=== PATIENT | female | born 1995 | race Caucasian/White ===

== ENCOUNTER 2020-03-20 06:36 | Emergency (ER) | payer OTHER, SELFPAY ==
--- NOTE | 2020-03-20 07:54 | ED.EAR ---
HPI - Ear Problem General Chief complaint: Ear Problems Stated complaint: EAR PAIN - RIGHT Time Seen by Provider: 03/20/20 07:49 Source: patient Mode of arrival: ambulatory Limitations: no limitations History of Present Illness HPI Narrative: Patient comes to emergency room complaining of right-sided ear pain and drainage which started couple of days ago. Patient states about a week ago she had earring placed on the outside part of her ear, then a few days later she started having pain on the inside of her ear. Patient states she works at [email or web address], she had a physician look at her ear couple of days ago, but she did not have any discharge at this time. Patient states overnight she noticed that her right ear is draining. Complaining also of right-sided ear pain, left side within normal limits patient denies fevers. Patient denies any recent trauma MD Complaint: ear pain Location: right ear Severity: moderate Related Data Previous Rx's Medication Instructions Recorded acetic acid 3 drp OTIC (EARS) Q6H #15 ml 03/20/20 amoxicillin-pot clavulanate 1 tab PO Q12H #20 tab 03/20/20 [Augmentin] Allergies Allergy/AdvReac Type Severity Reaction Status Date / Time terbinafine [TERBINAFINE] Allergy Severe ANAPHYLAXIS Unverified 02/13/20 16:43 Terbinafine Allergy Unknown Unverified 06/03/19 00:00 Review of Systems Review of Systems: Constitutional : No Weight loss, No Fever, No Chills, No Night Sweats, No Fatigue, No Malaise ENT/Mouth : No Hearing loss, complaining of right-sided Ear Pain and discharge, No Nasal Congestion, No Sinus Pain, No Hoarseness, No sore throat, No Rhinorrhea, No Swallowing Difficulty Eyes: No Eye Pain, No Swelling, No Redness, No Foreign Body, No Discharge, No Vision Changes Cardiovascular : No Chest Pain, No SOB, No Dyspnea on Exertion, No Orthopnea, No Edema, No Palpitations Respiratory : No Cough, No Sputum, No Wheezing, No Smoke Exposure, No Dyspnea Gastrointestinal : No Nausea, No Vomiting, No Diarrhea, No Constipation, No abdominal Pain, No Hematochezia, No Melena Genitourinary : no irregular bleeding, No Dysuria, No Urinary Frequency, No Hematuria, No Urinary Incontinence, No Urgency, No Flank Pain, No Urinary Flow Changes, No Hesitancy Musculoskeletal : No joint pain, No Myalgias, No Joint Swelling Skin : No Skin Lesions, No rash Neuro : No Weakness, No Numbness, No Paresthesias, No Loss of Consciousness, No Dizziness, No Headache Psych : No Anxiety/Panic, No Depression, No SI/HI/AH/VH, No Social Issues, Heme/Lymph: No Bruising, No Bleeding,No Lymphadenopathy Endocrine : No Polyuria, No Polydipsia, No Temperature Intolerance Physical Exam Vital Signs: Appearance: Alert. Oriented X3. No acute distress. Eyes: Pupils equal, round and reactive to light. ENT: Pharynx normal. left ear within normal limits, right ear has yellowish discharge in the ear canal, tympanic membrane mildly erythematous, new piercing side has a small side of granulation tissue, does not look infected Neck: Normal inspection. Neck supple. No lymph nodes noted. No crepitus CVS: Normal heart rate and rhythm. Pulses normal. Normal S1 and S2 Respiratory: No respiratory distress. Breath sounds normal. No Wheezing. No rales Abdomen: Soft and nontender. No rigidity. No distention. good BS x4 Skin: Skin warm and dry. Normal skin color. Normal skin turgor. Extremities: No lower extremity edema. No lower extremity edema. No Lacerations. No Rash Neuro: Oriented X 3. No motor deficit. No sensory deficit. Moving all extermities. No slurred speech. Course Course Course Narrative: I discussed the physical exam with the patient, she will be started on antibiotics. Patient will follow-up on Monday with her primary care physician. Discharge Plan Discharge Clinical Impression: Otitis media Qualifiers: Otitis media type: unspecified Chronicity: acute Qualified Code(s): H66.90 - Otitis media, unspecified, unspecified ear Patient Disposition: Home, Self-Care Instructions: Ear Infection (ED) Additional Instructions: Please follow-up with your primary care physician tomorrow. If you have any worsening or new symptoms, please return to the emergency room or call 911 Prescriptions: New amoxicillin-pot clavulanate [Augmentin] 875-125 mg tablet 1 tab PO Q12H Qty: 20 RF: 0 acetic acid 2 % solution 3 drp otic (ears) Q6H Qty: 15 RF: 0
[2020-03-20 07:59] VITALS: BP 117/77; PULSE 84; RESP 18; TEMP 36.5; O2SAT 98; BMI 30.7
== END 2020-03-20 08:11 | disposition home or self-care (01) ==
LOC: HO.ED 08:11
PROVIDERS: Emergency Provider Emergency Medicine; PCP Nurse Practitioner Family
DX: H66.91 Otitis media, unspecified, right ear (principal)
CPT/HCPCS: 99283

== ENCOUNTER 2020-03-22 10:56 | Emergency (ER) | payer OTHER, SELFPAY ==
[2020-03-22 11:42] VITALS: BP 150/75; PULSE 86; RESP 16; TEMP 37.7; O2SAT 98; BMI 30.7
--- NOTE | 2020-03-22 12:19 | CT_ITS ---
EXAMINATION: CT MASTOID CLINICAL INFORMATION: Pain/redness and swelling. COMPARISON: None TECHNIQUE: 0.6 mm thin axial and reformatted 0.6 mm thin coronal and sagittal images of mastoid sinuses were obtained. DLP: 228 mGy-cm FINDINGS: There is a small polyp or retention cyst left maxillary sinus. Rest of the paranasal sinuses are well aerated and clear. The mastoid air cells are well aerated. There is mild thickening of right tympanic membrane and mucosal thickening in the external auditory canal but no serous fluid collection or any evidence of mass. Both middle ears and the left external auditory canal appear widely patent. The middle ear ossicles are intact. Bilateral internal auditory canals are symmetrical and normal. No evidence of osteopenia or sclerosis. Visualized bilateral TM joints are symmetrical and normal. The mastoid sinuses are well aerated and clear. CT/CT mastoid IMPRESSION: Unremarkable CT mastoid sinuses. Especially there are no mastoid sinus inflammatory changes or wall thickening. Minimal mucosal thickening involving the right external ear and the tympanic membrane but no serous fluid collection or mass seen. Left auditory canal, middle and internal ear appears unremarkable.
[2020-03-22] MEDS: 0.9 % Sodium Chloride 500 ML 1000 ML IV (13:00)
[2020-03-22 13:05] LABS: Basophils Percent Auto 0.3 % (0-2); Eosinophils Absolute Auto 0.5 X10*3/uL (0.0-0.4); Eosinophils Percent Auto 3.6 % (0-4); Hematocrit 44.7 % (37-47); Hemoglobin 14.4 g/dl (12.0-16.0); Imm Gran Abs Auto 0.04 X10*3/uL (0.00-0.03); Imm Gran Pct Auto 0.3 % (0.0-0.4); Lymphocytes Absolute Auto 1.3 X10*3/uL (1.2-4.9); Lymphocytes Percent Auto 8.7 % (20-40); MANUAL DIFF FLAG SCAN; Mean Corpuscular HGB Conc 32.2 g/dl (31.0-35.0); Mean Corpuscular Hemoglobin 28.2 pg (27.0-33.0); Mean Corpuscular Volume 87.6 fL (80-98); Mean Platelet Volume 9.8 fL (9.4-12.3); Monocytes Absolute Auto 1.6 X10*3/uL (0.1-1.2); Monocytes Percent Auto 10.8 % (2-11); Neutrophils Percent Auto 76.3 % (45-73); Platelet Count 324 X10*3/uL (160-400); Red Cell Distribution Width 13.1 % (11.0-16.0); SCAN SMEAR FLAG 1; White Blood Count 14.4 X10*3/uL (4.8-10.8)
[2020-03-22 13:24] LABS: SLIDE REVIEW VERIFIED
--- NOTE | 2020-03-22 13:28 | ED.EAR ---
HPI - Ear Problem General Chief complaint: Headache Stated complaint: EAR PAIN Time Seen by Provider: 03/22/20 12:01 Source: patient Mode of arrival: ambulatory Limitations: no limitations History of Present Illness HPI Narrative: Otherwise healthy 24-year-old female presenting with complaint of continued right ear pain. States she was seen 2 days ago diagnosed with ear infection states she has been taking the antibiotics and feels like her symptoms are getting worse. It is noted that she has had 2 piercings done in the last couple of weeks. She reports that she has had some increased pain at site. MD Complaint: ear pain Location: right ear Duration: constant Severity: moderate Relieving factors: ear drops Related Data Previous Rx's Medication Instructions Recorded acetic acid 3 drp OTIC (EARS) Q6H #15 ml 03/20/20 amoxicillin-pot clavulanate 1 tab PO Q12H #20 tab 03/20/20 [Augmentin] doxycycline monohydrate 100 mg PO BID 10 Days #20 cap 03/22/20 ibuprofen 800 mg PO Q8H PRN #30 tab 03/22/20 Allergies Allergy/AdvReac Type Severity Reaction Status Date / Time terbinafine [TERBINAFINE] Allergy Severe ANAPHYLAXIS Verified 03/22/20 12:40 sulfamethoxazole Allergy Angioedema Verified 03/22/20 12:40 [From Bactrim] trimethoprim [From Bactrim] Allergy Angioedema Verified 03/22/20 12:40 Review of Systems Review of Systems: Constitutional: No Weight loss, No Fever, No Chills, No Night Sweats, No Fatigue, No Malaise ENT/Mouth: No Hearing loss, + Ear Pain, No Nasal Congestion, No Sinus Pain, No Hoarseness, No sore throat, No Rhinorrhea, No Swallowing Difficulty Eyes: No Eye Pain, No Swelling, No Redness, No Foreign Body, No Discharge, No Vision Changes Cardiovascular: No Chest Pain, No SOB, No Dyspnea on Exertion, No Orthopnea, No Edema, No Palpitations Respiratory: No Cough, No Sputum, No Wheezing, No Smoke Exposure, No Dyspnea Gastrointestinal: No Nausea, No Vomiting, No Diarrhea, No Constipation, No abdominal Pain, No Hematochezia, No Melena Genitourinary: no irregular bleeding, No Dysuria, No Urinary Frequency, No Hematuria, No Urinary Incontinence, No Urgency, No Flank Pain, No Urinary Flow Changes, No Hesitancy Musculoskeletal: No joint pain, No Myalgias, No Joint Swelling Skin: No Skin Lesions, No rash Neuro: No Weakness, No Numbness, No Paresthesias, No Loss of Consciousness, No Dizziness, No Headache Psych: No Social Issues Heme/Lymph: No Bruising, No Bleeding,No Lymphadenopathy Endocrine: No Polyuria, No Polydipsia, No Temperature Intolerance Yes all other systems are reviewed and are negative [facility] Past Medical History Attestation statement: The following information was validated with the patient. Social History Social History Alcohol intake: never Smoking Status: Never smoker Use of substances other than those prescribed or required for medical reasons: No Advance Directives: No Advance Directives Information Provided: No Physical Exam Vital Signs: Vital Signs: Vital Signs Temp Pulse Resp BP Pulse Ox 03/22/20 13:44 99 F 91 16 121/81 99 03/22/20 11:42 100 F 86 16 150/75 H 98 Body Mass Index 30.7 Reviewed Const: General: cooperative and healthy appearing; No acute distress or intoxicated appearing Nutritional Appearance: average body habitus Orientation/consciousness: patient oriented x3 HENMT: Head: Yes normal to inspection Ears: hearing grossly normal bilaterally Outer ear/TM images: 1. Right ear with multiple piercings. Most recent piercing at the top of the ear appears to be infected with very small amount of purulent discharge. Very minimal erythema. Eyes: General: appearance normal, both eyes and all related structures Visual Campos: normal visual campos by confrontation Neck: Neck: Yes normal visual inspection, No positive Brudzinski's sign, No positive Kernig's sign and No tender Thyroid: Thyroid normal Chest: Chest palpation & inspection: normal inspection of the chest Resp: Effort & Inspection: normal respiratory effort Cardio: Jugular venous distension: no JVD GI: Inspection: Yes normal to inspection Percussion: Yes normal to percussion Auscultation: normal bowel sounds : General: Yes no CVA tenderness Back/Spine/Pelvis: Back: no CVA tenderness Skin: General skin exam: no rashes or lesions noted Neuro: General: patient oriented x3 Extrem: General: Yes normal to inspection Course Course Course Narrative: CT without evidence of mastoid disease. Pain discomfort likely a source from the recent piercing that is now infected. Lab shows leukocytosis of 14 otherwise no lactic acidosis. Patient well nontoxic appearing. Resting comfortably. Findings/ plan reviewed. Will continue her Augmentin and add on doxycycline. Will return here or primary care doctor for recheck in 3 days. MDM - Ear Lab Data Result diagrams: 03/22/20 12:57 03/22/20 12:57 Labs: Lab Results 03/22/20 03/22/20 03/22/20 Range/Units 12:57 12:57 13:14 WBC 14.4 H (4.8-10.8) X10*3/uL RBC 5.10 (4.20-5.50) X10*6/uL Hgb 14.4 (12.0-16.0) g/dl Hct 44.7 (37-47) % MCV 87.6 (80-98) fL MCH 28.2 (27.0-33.0) pg MCHC 32.2 (31.0-35.0) g/dl RDW 13.1 (11.0-16.0) % Plt Count 324 (160-400) X10*3/uL MPV 9.8 (9.4-12.3) fL Immature Gran % (Auto) 0.3 (0.0-0.4) % Neut % (Auto) 76.3 H (45-73) % Lymph % (Auto) 8.7 L (20-40) % Sargent % (Auto) 10.8 (2-11) % Eos % (Auto) 3.6 (0-4) % Baso % (Auto) 0.3 (0-2) % Lymph # (Auto) 1.3 (1.2-4.9) X10*3/uL Sargent # (Auto) 1.6 H (0.1-1.2) X10*3/uL Eos # (Auto) 0.5 H (0.0-0.4) X10*3/uL Baso # (Auto) 0.0 (0.0-0.2) X10*3/uL Abs Immat Gran (auto) 0.04 H (0.00-0.03) X10*3/uL Absolute Neuts (auto) 11.0 H (2.0-8.3) X10*3/uL Absolute Nucleated RBC 0.000 (0.0-0.012) X10*3/uL Nucleated RBC % (auto) 0.0 (0.0-0.2) /100WBC Smear Tech's Comments VERIFIED Sodium 139 (135-145) mmol/L Potassium 4.0 (3.3-5.1) mmol/l Chloride 106 (96-108) mmol/L Carbon Dioxide 24 (22-29) mmol/L Anion Gap 13 (12-20) BUN 11 (9-16) mg/dL Creatinine 0.67 (0.5-1.4) mg/dL Estim Creat Clear Calc 124.8 Estimated GFR > 60 Random Glucose 86 (60-115) mg/dL Lactic Acid 1.3 (0.5-2.0) mmol/L Calcium 9.1 (8.4-10.2) mg/dL Total Bilirubin 0.7 (0.0-1.0) mg/dL AST 15 (5-31) U/L ALT 25 (0-31) U/L Alkaline Phosphatase 80 (39-117) U/L Total Protein 7.1 (6.5-8.0) g/dL Albumin 4.5 (3.5-5.0) g/dL Urine Color Urine Appearance Urine pH (5.0-8.0) Ur Specific [place] (1.005-1.025) Urine Protein (NEG-TRACE) MG/DL Urine Glucose (UA) (NEG) MG/DL Urine Ketones (NEG) MG/DL Urine Blood (NEG) Urine Nitrite (NEG) Ur Leukocyte Esterase (NEG) Urine RBC (0) /HPF Urine WBC (0-4) /HPF Ur Squamous Epith Cells /LPF Amorphous Sediment /LPF Urine Bacteria /LPF Urine Test (NEGATIVE) 03/22/20 03/22/20 Range/Units 14:05 14:05 WBC (4.8-10.8) X10*3/uL RBC (4.20-5.50) X10*6/uL Hgb (12.0-16.0) g/dl Hct (37-47) % MCV (80-98) fL MCH (27.0-33.0) pg MCHC (31.0-35.0) g/dl RDW (11.0-16.0) % Plt Count (160-400) X10*3/uL MPV (9.4-12.3) fL Immature Gran % (Auto) (0.0-0.4) % Neut % (Auto) (45-73) % Lymph % (Auto) (20-40) % Sargent % (Auto) (2-11) % Eos % (Auto) (0-4) % Baso % (Auto) (0-2) % Lymph # (Auto) (1.2-4.9) X10*3/uL Sargent # (Auto) (0.1-1.2) X10*3/uL Eos # (Auto) (0.0-0.4) X10*3/uL Baso # (Auto) (0.0-0.2) X10*3/uL Abs Immat Gran (auto) (0.00-0.03) X10*3/uL Absolute Neuts (auto) (2.0-8.3) X10*3/uL Absolute Nucleated RBC (0.0-0.012) X10*3/uL Nucleated RBC % (auto) (0.0-0.2) /100WBC Smear Tech's Comments Sodium (135-145) mmol/L Potassium (3.3-5.1) mmol/l Chloride (96-108) mmol/L Carbon Dioxide (22-29) mmol/L Anion Gap (12-20) BUN (9-16) mg/dL Creatinine (0.5-1.4) mg/dL Estim Creat Clear Calc Estimated GFR Random Glucose (60-115) mg/dL Lactic Acid (0.5-2.0) mmol/L Calcium (8.4-10.2) mg/dL Total Bilirubin (0.0-1.0) mg/dL AST (5-31) U/L ALT (0-31) U/L Alkaline Phosphatase (39-117) U/L Total Protein (6.5-8.0) g/dL Albumin (3.5-5.0) g/dL Urine Color YELLOW Urine Appearance CLEAR Urine pH 7.5 (5.0-8.0) Ur Specific [place] 1.020 (1.005-1.025) Urine Protein NEG (NEG-TRACE) MG/DL Urine Glucose (UA) NEG (NEG) MG/DL Urine Ketones NEG (NEG) MG/DL Urine Blood TRACE (NEG) Urine Nitrite NEG (NEG) Ur Leukocyte Esterase NEG (NEG) Urine RBC 0 (0) /HPF Urine WBC 1-4 (0-4) /HPF Ur Squamous Epith Cells 1+ /LPF Amorphous Sediment 1+ /LPF Urine Bacteria NONE /LPF Urine Test NEGATIVE (NEGATIVE) Imaging Data head/mastoid CT: Radiologist's impression: Cande Hernandez 24 F 1995 [place] [id number] [address] Scan Report Signed Patient: Dolly Hernandez#: [id number] : 1995Acct:[id number] Age/Sex: 24 / FADM Date: 03/22/20 Loc: HO.ED Attending Dr: Ordering Physician: Goyo Cheng NP Date of Service: 03/22/20 Procedure(s): CT mastoid Accession Number(s): [id number] cc: oGyo Cheng 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 COMPARISON: None TECHNIQUE: 0.6 mm thin axial and reformatted 0.6 mm thin coronal and sagittal images of mastoid sinuses were obtained. DLP: 228 mGy-cm FINDINGS: There is a small polyp or retention cyst left maxillary sinus. Rest of the paranasal sinuses are well aerated and clear. The mastoid air cells are well aerated. There is mild thickening of right tympanic membrane and mucosal thickening in the external auditory canal but no serous fluid collection or any evidence of mass. Both middle ears and the left external auditory canal appear widely patent. The middle ear ossicles are intact. Bilateral internal auditory canals are symmetrical and normal. No evidence of osteopenia or sclerosis. Visualized bilateral TM joints are symmetrical and normal. The mastoid sinuses are well aerated and clear. CT/CT mastoid IMPRESSION: Unremarkable CT mastoid sinuses. Especially there are no mastoid sinus inflammatory changes or wall thickening. Minimal mucosal thickening involving the right external ear and the tympanic membrane but no serous fluid collection or mass seen. Left auditory canal, middle and internal ear appears unremarkable. Dictated By:DHARA UNDERWOOD MD Signed By:<Electronically signed by DHARA UNDERWOOD MD in OV>03/22/20 1413 DD/ 1219 TD/TT: Chiropractic Physician: [facility] Discharge Plan Discharge Clinical Impression: Otitis externa Qualifiers: Otitis externa type: other infective Chronicity: acute Laterality: right Qualified Code(s): H60.391 - Other infective otitis externa, right ear Cellulitis of earlobe Qualifiers: Laterality: right Qualified Code(s): H60.11 - Cellulitis of right external ear Patient Disposition: Home, Self-Care Instructions: Cellulitis (ED) Additional Instructions: findings of your blood work as well as a CT scan reviewed through Have recheck in 3 days Continue take the antibiotic previous prescribed and add on new antibiotic ( doxycycline) Tylenol alternate with Motrin as needed for pain discomfort Return if any concerns or worsening symptoms otherwise have recheck in 3 days either here in emergency room which primary care doctor office Thank you Prescriptions: New ibuprofen 800 mg tablet 800 mg PO Q8H PRN (Reason: pain) Qty: 30 RF: 0 doxycycline monohydrate 100 mg capsule 100 mg PO BID 10 Days Qty: 20 RF: 0 No Action amoxicillin-pot clavulanate [Augmentin] 875-125 mg tablet 1 tab PO Q12H Qty: 20 RF: 0 acetic acid 2 % solution 3 drp otic (ears) Q6H Qty: 15 RF: 0 Referrals: Goyo Cheng NP [Emergency Midlevel Provider] - 3 days ( right ear recheck in 3 days either in the emergency room or a primary care doctor office you have pictures to compare to) James Robert NP [Primary Care Provider] - 3 days ( recheck of right ear either in emergency room or primary care doctor office) Interventions: ED Discharge Assessment Last Done: 03/22/20 15:24 Discharge Date/Time: 03/22/20 15:29
[2020-03-22 13:44] VITALS: BP 121/81; PULSE 91; RESP 16; TEMP 37.2; O2SAT 99
[2020-03-22 13:45] LABS: Lactic Acid 1.3 mmol/L (0.5-2.0)
[2020-03-22 13:53] LABS: Alanine Aminotransferase 25 U/L (0-31); Albumin Level 4.5 g/dL (3.5-5.0); Alkaline Phosphatase 80 U/L (39-117); Anion Gap 13 (12-20); Aspartate Amino Transferase 15 U/L (5-31); Bilirubin Total 0.7 mg/dL (0.0-1.0); Blood Urea Nitrogen 11 mg/dL (9-16); Calcium 9.1 mg/dL (8.4-10.2); Carbon Dioxide 24 mmol/L (22-29); Chloride 106 mmol/L (96-108); Creatinine Clr Calc Pharmacy 124.8; Estimated Glomerular Filt Rate > 60; Glucose Random 86 mg/dL (60-115); Sodium 139 mmol/L (135-145); Total Protein 7.1 g/dL (6.5-8.0)
[2020-03-22] MEDS: Acetaminophen 325 MG TABLET 975 MG PO (13:59)
[2020-03-22 14:22] LABS: Glucose Urine UA NEG (NEG); Leukocyte Esterase Urine NEG (NEG); Nitrite Urine NEG (NEG); PH 7.5 (5.0-8.0); Urine Blood TRACE (NEG); Urine Ketones NEG (NEG); Urine Protein NEG (NEG-TRACE)
[2020-03-22 14:23] LABS: Appearance Urine CLEAR; Color Urine YELLOW
[2020-03-22 14:24] LABS: UPreg QC Valid YES; Urine Pregnancy NEGATIVE (NEGATIVE)
[2020-03-22 14:34] LABS: RBC Urine 0 /HPF (0); Squamous Epithelial Cell Urine 1+ /LPF
[2020-03-22 14:36] LABS: Amorphous Sediment Urine 1+ /LPF
== END 2020-03-22 15:29 | disposition home or self-care (01) ==
PROVIDERS: Nurse Practitioner Primary Care; Emergency Provider Emergency Medicine; PCP Nurse Practitioner Family
DX: H60.8X1 Other otitis externa, right ear (principal); H60.11 Cellulitis of right external ear
CPT/HCPCS: 36415; 70481; 80053; 81001; 81025; 83605; 85025; 87040; 99284

== ENCOUNTER 2020-05-26 02:02 | Inpatient (IN) | payer OTHER, SELFPAY ==
[2020-05-26] VITALS (9 sets, daily range): BP systolic 113–144; BP diastolic 75–100; PULSE 76–107; RESP 16–20; TEMP 36.2–36.7; O2SAT 97–99; BMI 31.2
[2020-05-26 03:12] LABS: Basophils Absolute Auto 0.1 X10*3/uL (0.0-0.2); Basophils Percent Auto 0.4 % (0-2); Eosinophils Absolute Auto 0.2 X10*3/uL (0.0-0.4); Eosinophils Percent Auto 1.2 % (0-4); Hematocrit 40.1 % (37-47); Hemoglobin 13.3 g/dl (12.0-16.0); Imm Gran Abs Auto 0.09 X10*3/uL (0.00-0.03); Imm Gran Pct Auto 0.5 % (0.0-0.4); Lymphocytes Absolute Auto 1.4 X10*3/uL (1.2-4.9); Lymphocytes Percent Auto 8.1 % (20-40); MANUAL DIFF FLAG SCAN; Mean Corpuscular HGB Conc 33.2 g/dl (31.0-35.0); Mean Corpuscular Hemoglobin 28.4 pg (27.0-33.0); Mean Corpuscular Volume 85.5 fL (80-98); Mean Platelet Volume 9.6 fL (9.4-12.3); Monocytes Absolute Auto 1.9 X10*3/uL (0.1-1.2); Monocytes Percent Auto 11.1 % (2-11); Neutrophils Absolute Auto 13.8 X10*3/uL (2.0-8.3); Neutrophils Percent Auto 78.7 % (45-73); Platelet Count 288 X10*3/uL (160-400); Red Blood Count 4.69 X10*6/uL (4.20-5.50); Red Cell Distribution Width 12.4 % (11.0-16.0); SCAN SMEAR FLAG 1; White Blood Count 17.5 X10*3/uL (4.8-10.8)
[2020-05-26] MEDS: ondansetron HCL 4 MG/2 ML VIAL IVPUSH (03:12)
[2020-05-26] MEDS: fentaNYL citrate/PF 100 MCG/2 ML VIAL 25 MCG IVPUSH (03:13)
[2020-05-26 03:15] LABS: Glucose Urine UA NEG (NEG); Leukocyte Esterase Urine NEG (NEG); Nitrite Urine NEG (NEG); PH 5.5 (5.0-8.0); Urine Blood TRACE (NEG); Urine Ketones NEG (NEG); Urine Protein 2+ MG/DL (NEG-TRACE)
[2020-05-26 03:25] LABS: Appearance Urine CLEAR; Color Urine STRAW
--- NOTE | 2020-05-26 03:31 | PC.NURSE ---
PT REPORTS SHE HAD BEEN EXPERIENCING LOER BILATERAL BACK PAIN FOR HOURS, THOUGHT IT WAS FROM STANDING FOR LONG HOURS AT WORK. PT TRIED IBUPROFEN, MASSAGE AND TOPICAL HEAT. PAIN INCREASED IN INTENSITY AT TIMES, NAUSEA AND VOMITING WITH INCREASED PAIN. DENIES URINARY SYMPTOMS. AMBULATORY, INCREASED PAIN WITH MOVEMENT.
[2020-05-26 03:34] LABS: Mucus Urine TRACE /LPF; Renal Epithelial Cells Urine TRACE /LPF; Squamous Epithelial Cell Urine 1+ /LPF; WBC Urine 0-2 /HPF (0-4)
[2020-05-26 03:35] LABS: UPreg QC Valid YES; Urine Pregnancy NEGATIVE (NEGATIVE)
[2020-05-26 03:42] LABS: Alanine Aminotransferase 26 U/L (0-31); Albumin Level 4.4 g/dL (3.5-5.0); Alkaline Phosphatase 84 U/L (39-117); Anion Gap 19 (12-20); Aspartate Amino Transferase 26 U/L (5-31); Bilirubin Total 0.4 mg/dL (0.0-1.0); Blood Urea Nitrogen 20 mg/dL (9-16); Calcium 9.1 mg/dL (8.4-10.2); Carbon Dioxide 20 mmol/L (22-29); Chloride 104 mmol/L (96-108); Creatinine Clr Calc Pharmacy 44.4; Estimated Glomerular Filt Rate 33; Glucose Random 147 mg/dL (60-115); Potassium 4.6 mmol/l (3.3-5.1); Sodium 138 mmol/L (135-145); Total Protein 7.1 g/dL (6.5-8.0)
[2020-05-26 03:53] LABS: SLIDE REVIEW VERIFIED
--- NOTE | 2020-05-26 03:54 | CT_ITS ---
EXAMINATION: CT ABDOMEN AND PELVIS WITHOUT CONTRAST CLINICAL INFORMATION: Left flank pain COMPARISON: 12/19/2019 TECHNIQUE: Multidetector volumetric imaging was performed from the superior aspect of the liver through the pubic symphysis. Sagittal and coronal reformatted images were obtained on the technologist's workstation. This CT examination was performed using dose optimization techniques as appropriate, variously including the following: *Automated exposure control *Adjustment of mA and/or kV according to patient size (this includes techniques or standardized protocols for targeted exams where dose is matched to indication/reason for exam; i.e. extremities or head) *Use of iterative reconstruction technique DLP: 612 mGy-cm FINDINGS: LUNG BASES: The visualized lung bases are unremarkable. LIVER, GALLBLADDER, AND BILIARY TREE: The liver is normal in size, shape, and attenuation. No focal hepatic lesion or biliary ductal dilatation is present. Cholecystectomy. PANCREAS: Unremarkable. SPLEEN: Unremarkable. ADRENAL GLANDS: Unremarkable. KIDNEYS AND URETERS: The kidneys are normal in size, shape, and attenuation. No hydronephrosis or hydroureter. There is a right lower pole 0.2 cm calculus which is 10 cm from the posterior axillary line. Mild symmetric perinephric stranding. BLADDER: Unremarkable. GASTROINTESTINAL TRACT: Stomach is unremarkable. Normal caliber small bowel. No obstruction. Normal appendix. No colonic wall thickening or inflammatory change. No free air or free fluid. ABDOMINAL WALL: No significant hernia is appreciated. LYMPH NODES: Normal. VASCULAR: Unremarkable. PELVIC VISCERA: The uterus and adnexa are unremarkable. OSSEOUS STRUCTURES: Unremarkable. CT/CT abdomen pelvis wo con IMPRESSION: No hydronephrosis. Tiny nonobstructing right lower pole renal calculus. There is mild symmetric perinephric stranding which is new from the previous CT. This is nonspecific but could be associated with an infectious process.
--- NOTE | 2020-05-26 03:56 | ED_ITS ---
HPI - Abdominal Pain General Chief Complaint: Back Pain/Injury Stated Complaint: Back Pain Time Seen by Provider: 05/26/20 02:47 Source: patient Mode of arrival: ambulatory History of Present Illness HPI narrative: This is a 24-year-old female without significant past medical history who states that she was at work and began experiencing some lower back pain that she initially felt were. Pains and when she got home she treated with heating pad and some Aleve with good resolution. However, she abruptly developed lower back pain left greater than right that woke her up from sleep and was associated with nausea, vomiting, chills, but denies any change in urinary pain/burning/frequency. She denies any diarrhea or vaginal discharge. Related Data Previous Rx's Medication Instructions Recorded acetic acid 3 drp OTIC (EARS) Q6H #15 ml 03/20/20 amoxicillin-pot clavulanate 1 tab PO Q12H #20 tab 03/20/20 [Augmentin] doxycycline monohydrate 100 mg PO BID 10 Days #20 cap 03/22/20 ibuprofen 800 mg PO Q8H PRN #30 tab 03/22/20 Allergies Allergy/AdvReac Type Severity Reaction Status Date / Time terbinafine [TERBINAFINE] Allergy Severe ANAPHYLAXIS Verified 03/22/20 12:40 sulfamethoxazole Allergy Angioedema Verified 03/22/20 12:40 [From Bactrim] trimethoprim [From Bactrim] Allergy Angioedema Verified 03/22/20 12:40 Review of Systems Review of Systems Pertinent positives and negatives as stated in HPI and 10 point review of systems is otherwise negative. Physical Exam Vital Signs: Vital Signs: Last Vital Signs Temp 98.0 F 05/26/20 02:42 Pulse 94 05/26/20 05:41 Resp 16 05/26/20 05:41 BP 124/100 H 05/26/20 05:41 Pulse Ox 97 05/26/20 05:41 Body Mass Index 31.2 VITAL SIGNS: Reviewed. GENERAL: Well developed, well nourished, in no acute distress. HEAD: Normocephalic/atraumatic, EYES: PERRLA, EOMI intact without pain, no nystagmus/pallor/icterus noted EARS: Ext canals without abnormality, TMs non-bulging and non-erythematous NOSE: Nares patent bilateral OROPHARYNX: no oral lesions noted, posterior pharynx clear and non-erythematous without noted tonsillar enlargement/erythema/exudates NECK: Supple, no adenopathy LUNGS: Normal breath sounds. No adventitious sounds or accessory muscle use. SpO2<97> CARDIOVASCULAR: Regular rate and rhythm without noted murmurs, no JVD or lower extremity edema. ABDOMEN: Soft, non-tender, non-distended with bowel sounds. No rigidity. No guarding. No palpable masses or hernias noted, no CVA tenderness NEUROLOGIC: Alert and oriented x 4. Course Course Course Narrative: This is a 24-year-old female with history and clinical presentation most consistent with renal colic, doubt appendicitis, ovarian cyst, ectopic . -labs, UA, U preg,, Zofran, pain medication, IV fluids This is a patient who was treated for sepsis with suspected renal source and on review of all investigations noted to have an RENETTA. CT scan shows symmetric perinephric stranding without obstructing stones. Patient received antibiotics, IV fluids as well as having lactic acid and blood cultures sent. Her pain and nausea have improved with the medication provided and this case was discussed with the inpatient hospitalist team who is agreeable for admission. MDM - Abdominal Pain Lab Data Result diagrams: 05/26/20 03:06 05/26/20 03:06 Labs: Lab Results 05/26/20 05/26/20 05/26/20 Range/Units 03:06 03:06 03:06 WBC 17.5 H (4.8-10.8) X10*3/uL RBC 4.69 (4.20-5.50) X10*6/uL Hgb 13.3 (12.0-16.0) g/dl Hct 40.1 (37-47) % MCV 85.5 (80-98) fL MCH 28.4 (27.0-33.0) pg MCHC 33.2 (31.0-35.0) g/dl RDW 12.4 (11.0-16.0) % Plt Count 288 (160-400) X10*3/uL MPV 9.6 (9.4-12.3) fL Immature Gran % (Auto) 0.5 H (0.0-0.4) % Neut % (Auto) 78.7 H (45-73) % Lymph % (Auto) 8.1 L (20-40) % [place] % (Auto) 11.1 H (2-11) % Eos % (Auto) 1.2 (0-4) % Baso % (Auto) 0.4 (0-2) % Lymph # (Auto) 1.4 (1.2-4.9) X10*3/uL [place] # (Auto) 1.9 H (0.1-1.2) X10*3/uL Eos # (Auto) 0.2 (0.0-0.4) X10*3/uL Baso # (Auto) 0.1 (0.0-0.2) X10*3/uL Abs Immat Gran (auto) 0.09 H (0.00-0.03) X10*3/uL Absolute Neuts (auto) 13.8 H (2.0-8.3) X10*3/uL Absolute Nucleated RBC 0.000 (0.0-0.012) X10*3/uL Nucleated RBC % (auto) 0.0 (0.0-0.2) /100WBC Smear Tech's Comments VERIFIED Sodium 138 (135-145) mmol/L Potassium 4.6 (3.3-5.1) mmol/l Chloride 104 (96-108) mmol/L Carbon Dioxide 20 L (22-29) mmol/L Anion Gap 19 (12-20) BUN 20 H D (9-16) mg/dL Creatinine 1.90 H (0.5-1.4) mg/dL Estim Creat Clear Calc 44.4 Estimated GFR 33 Random Glucose 147 H D (60-115) mg/dL Lactic Acid (0.5-2.0) mmol/L Calcium 9.1 (8.4-10.2) mg/dL Total Bilirubin 0.4 (0.0-1.0) mg/dL AST 26 D (5-31) U/L ALT 26 (0-31) U/L Alkaline Phosphatase 84 (39-117) U/L Total Protein 7.1 (6.5-8.0) g/dL Albumin 4.4 (3.5-5.0) g/dL Urine Color STRAW Urine Appearance CLEAR Urine pH 5.5 (5.0-8.0) Ur Specific [place] 1.020 (1.005-1.025) Urine Protein 2+ H (NEG-TRACE) MG/DL Urine Glucose (UA) NEG (NEG) MG/DL Urine Ketones NEG (NEG) MG/DL Urine Blood TRACE (NEG) Urine Nitrite NEG (NEG) Ur Leukocyte Esterase NEG (NEG) Urine RBC 1-4 (0) /HPF Urine WBC 0-2 (0-4) /HPF Ur Squamous Epith Cells 1+ /LPF Ur Renal Epithelial Cell TRACE /LPF Urine Bacteria NONE /LPF Urine Mucus TRACE /LPF Urine Test (NEGATIVE) 05/26/20 05/26/20 Range/Units 03:06 04:32 WBC (4.8-10.8) X10*3/uL RBC (4.20-5.50) X10*6/uL Hgb (12.0-16.0) g/dl Hct (37-47) % MCV (80-98) fL MCH (27.0-33.0) pg MCHC (31.0-35.0) g/dl RDW (11.0-16.0) % Plt Count (160-400) X10*3/uL MPV (9.4-12.3) fL Immature Gran % (Auto) (0.0-0.4) % Neut % (Auto) (45-73) % Lymph % (Auto) (20-40) % [place] % (Auto) (2-11) % Eos % (Auto) (0-4) % Baso % (Auto) (0-2) % Lymph # (Auto) (1.2-4.9) X10*3/uL [place] # (Auto) (0.1-1.2) X10*3/uL Eos # (Auto) (0.0-0.4) X10*3/uL Baso # (Auto) (0.0-0.2) X10*3/uL Abs Immat Gran (auto) (0.00-0.03) X10*3/uL Absolute Neuts (auto) (2.0-8.3) X10*3/uL Absolute Nucleated RBC (0.0-0.012) X10*3/uL Nucleated RBC % (auto) (0.0-0.2) /100WBC Smear Tech's Comments Sodium (135-145) mmol/L Potassium (3.3-5.1) mmol/l Chloride (96-108) mmol/L Carbon Dioxide (22-29) mmol/L Anion Gap (12-20) BUN (9-16) mg/dL Creatinine (0.5-1.4) mg/dL Estim Creat Clear Calc Estimated GFR Random Glucose (60-115) mg/dL Lactic Acid 2.0 (0.5-2.0) mmol/L Calcium (8.4-10.2) mg/dL Total Bilirubin (0.0-1.0) mg/dL AST (5-31) U/L ALT (0-31) U/L Alkaline Phosphatase (39-117) U/L Total Protein (6.5-8.0) g/dL Albumin (3.5-5.0) g/dL Urine Color Urine Appearance Urine pH (5.0-8.0) Ur Specific [place] (1.005-1.025) Urine Protein (NEG-TRACE) MG/DL Urine Glucose (UA) (NEG) MG/DL Urine Ketones (NEG) MG/DL Urine Blood (NEG) Urine Nitrite (NEG) Ur Leukocyte Esterase (NEG) Urine RBC (0) /HPF Urine WBC (0-4) /HPF Ur Squamous Epith Cells /LPF Ur Renal Epithelial Cell /LPF Urine Bacteria /LPF Urine Mucus /LPF Urine Test NEGATIVE (NEGATIVE) Discharge Plan Discharge Clinical Impression: Pyelonephritis, RENETTA (acute kidney injury) Sepsis Qualifiers: Sepsis type: sepsis due to unspecified organism Sepsis acute organ dysfunction status: without acute organ dysfunction Qualified Code(s): A41.9 - Sepsis, unspecified organism Patient Disposition: Admitted As Inpatient [facility] Past Medical History Source: nursing notes reviewed Medical History Kidney stones Surgical History Hx of cholecystectomy Social History Social History Alcohol intake: never Smoking Status: Never smoker Advance Directives: No Advance Directives Information Provided: No
--- NOTE | 2020-05-26 04:12 | PC.NURSE ---
DECREASED PAIN LEVEL AND NAUSEA, PT ABLE TO REST.
--- NOTE | 2020-05-26 05:42 | PC.NURSE ---
PT REQUESTING LIQUIDS, GIVEN SMALL AMOUNT OF ICE CHIPS.
[2020-05-26] MEDS: 0.9 % Sodium Chloride 1,000 ML 999 ML IV (06:23)
[2020-05-26] MEDS: cefTRIAXone sodium 1 GM in 0.9 % Sodium Chloride 50 ML IV (06:25)
[2020-05-26 07:00] LABS: COVID-19 Test Negative (Negative); IDNOW Serial# 9DD0AD1C
[2020-05-26] MEDS: Ketorolac Tromethamine 15 MG/ML VIAL 30 MG IV (09:31)
--- NOTE | 2020-05-26 09:37 | PC.NURSE ---
PT AWAITING HOSPITALIST FOR ADMISSION. MED FOR PAIN ORDERED
--- NOTE | 2020-05-26 10:13 | PM.IMHP ---
History of Present Illness Date of Service: 05/26/20 <Marlene Brown NP - Last Filed: 05/26/20 12:19> Chief Complaint: Back pain <Marlene Brown NP - Last Filed: 05/26/20 12:19> 24 year old women presenting with back pain, nausea and vomiting. She was working yesterday and suddenly developed back pain. She took motrin with some relief. When she arrived at home she started to have pain again so she took a shower and used a heating pad. Around midnight she took an aleve with no effect. She has a history of renal calculi. In the ED, She did have an elevated WBC and elevated creatinine. Abdominal CT showed perinephric stranding. She was given Rocephin. She will be admitted for RENETTA and pyelonephritis. <Marlene Brown NP - Last Filed: 05/26/20 12:19> Review of Systems Review of Systems: Denies any recent fever chills or decrease in appetite respiratory denies any shortness of breath coverage production cardiovascular is adjustment of any PND or edema gastrointestinal See HPI genitourinary denies any dysuria frequency or hematuria musculoskeletal Back pain neuropsych denies any weakness or seizures all other systems reviewed are negative <Marlene Brown NP - Last Filed: 05/26/20 12:19> [facility] Medical History: Medical History Kidney stones <Marlene Brown NP - Last Filed: 05/26/20 12:19> Surgical History: Surgical History Hx of cholecystectomy <Marlene Brown NP - Last Filed: 05/26/20 12:19> Social History: Social History Alcohol intake: never Smoking Status: Never smoker Currently Displaying Signs/Symptoms of Drug Intoxication Withdrawal: No Advance Directives: No Advance Directives Information Provided: No Do you have thoughts of harming others: None Do you have a plan to hurt others: No Plan service: No Current occupational status: employed <Marlene Brown NP - Last Filed: 05/26/20 12:19> Meds Allergies/Adverse reactions: Allergies Allergy/AdvReac Type Severity Reaction Status Date / Time terbinafine [TERBINAFINE] Allergy Severe ANAPHYLAXIS Verified 03/22/20 12:40 sulfamethoxazole Allergy Angioedema Verified 03/22/20 12:40 [From Bactrim] trimethoprim [From Bactrim] Allergy Angioedema Verified 03/22/20 12:40 <Marlene Brown NP - Last Filed: 05/26/20 12:19> Home medications: Home Medications Medication Instructions Recorded Confirmed Type loratadine 10 mg PO DAILY PRN 05/26/20 05/26/20 History ofloxacin 10 drp OTIC (EARS) DAILY 05/26/20 05/26/20 History <Marlene Brown NP - Last Filed: 05/26/20 12:19> Physical Exam Vital Signs and Narrative: Vital Signs: Last Vital Signs Temp 98 F 05/26/20 07:30 Pulse 96 05/26/20 09:11 Resp 18 05/26/20 09:11 BP 126/89 05/26/20 09:11 Pulse Ox 97 05/26/20 09:11 Body Mass Index 31.2 <Marlene Brown NP - Last Filed: 05/26/20 12:19> Appearing in no acute distress head is normocephalic atraumatic eyes pupils are PERRLA sclera is anicteric mouth throat mucous membranes are intact and moist neck is supple no lymphadenopathy, no JVD noted lung sounds are clear to auscultation heart regular rate rhythm, clear S1, S2 positive bowel sounds, abdomen is soft, nontender neuro patient is alert x3, no focal deficits <Marlene Brown NP - Last Filed: 05/26/20 12:19> Results Labs CBC and Chem 7: : 05/27/20 06:16 05/27/20 06:16 <Marlene Brown NP - Last Filed: 05/26/20 12:19> Labs: Laboratory Results - last 24 hr 05/26/20 05/26/20 05/26/20 03:06 03:06 03:06 MCV 85.5 MCH 28.4 MCHC 33.2 RDW 12.4 Plt Count 288 MPV 9.6 Immature Gran % (Auto) 0.5 H Neut % (Auto) 78.7 H Lymph % (Auto) 8.1 L [place] % (Auto) 11.1 H Eos % (Auto) 1.2 Baso % (Auto) 0.4 Lymph # (Auto) 1.4 [place] # (Auto) 1.9 H Eos # (Auto) 0.2 Baso # (Auto) 0.1 Abs Immat Gran (auto) 0.09 H Absolute Neuts (auto) 13.8 H Absolute Nucleated RBC 0.000 Nucleated RBC % (auto) 0.0 Smear Tech's Comments VERIFIED Anion Gap 19 Estim Creat Clear Calc 44.4 Estimated GFR 33 Random Glucose 147 H D Lactic Acid Calcium 9.1 Total Bilirubin 0.4 AST 26 D ALT 26 Alkaline Phosphatase 84 Total Protein 7.1 Albumin 4.4 Urine Color STRAW Urine Appearance CLEAR Urine pH 5.5 Ur Specific [place] 1.020 Urine Protein 2+ H Urine Glucose (UA) NEG Urine Ketones NEG Urine Blood TRACE Urine Nitrite NEG Ur Leukocyte Esterase NEG Urine RBC 1-4 Urine WBC 0-2 Ur Squamous Epith Cells 1+ Ur Renal Epithelial Cell TRACE Urine Bacteria NONE Urine Mucus TRACE Urine Test COVID-19 (BRYAN) COVID-19 Clin Com 05/26/20 05/26/20 05/26/20 03:06 04:32 06:35 MCV MCH MCHC RDW Plt Count MPV Immature Gran % (Auto) Neut % (Auto) Lymph % (Auto) [place] % (Auto) Eos % (Auto) Baso % (Auto) Lymph # (Auto) [place] # (Auto) Eos # (Auto) Baso # (Auto) Abs Immat Gran (auto) Absolute Neuts (auto) Absolute Nucleated RBC Nucleated RBC % (auto) Smear Tech's Comments Anion Gap Estim Creat Clear Calc Estimated GFR Random Glucose Lactic Acid 2.0 Calcium Total Bilirubin AST ALT Alkaline Phosphatase Total Protein Albumin Urine Color Urine Appearance Urine pH Ur Specific [place] Urine Protein Urine Glucose (UA) Urine Ketones Urine Blood Urine Nitrite Ur Leukocyte Esterase Urine RBC Urine WBC Ur Squamous Epith Cells Ur Renal Epithelial Cell Urine Bacteria Urine Mucus Urine Test NEGATIVE COVID-19 (BRYAN) Negative COVID-19 Clin [facility] [employer] See Note <Marlene Brown NP - Last Filed: 05/26/20 12:19> Imaging Radiologist's Impressions: Impressions Abdomen/Pelvis CT 05/26/20 03:54 IMPRESSION: No hydronephrosis. Tiny nonobstructing right lower pole renal calculus. There is mild symmetric perinephric stranding which is new from the previous CT. This is nonspecific but could be associated with an infectious process. <Marlene Brown NP - Last Filed: 05/26/20 12:19> Assessment and Plan (1) Sepsis: Qualifiers: Sepsis acute organ dysfunction status: without acute organ dysfunction Sepsis type: sepsis due to unspecified organism Qualified Code(s): A41.9 - Sepsis, unspecified organism <Marlene Brown NP - Last Filed: 05/26/20 12:19> Status: Acute <Marlene Brown NP - Last Filed: 05/26/20 12:19> (2) Pyelonephritis: Status: Acute <Marlene Brown NP - Last Filed: 05/26/20 12:19> 24 year old women admitted with Sepsis secondary to pyelonephritis, renal colic pain Sepsis. Leukocytosis, tachycardia. Normal lactic acid. Follow blood cultures. Pyelonephritis. Rocepin. IV fluids, supportive care. RENETTA. IV fluids. Follow BMP. DVT prophylaxis with early ambulation Full code. Discussed with Dr. Dominguez <Marlene Brown NP - Last Filed: 05/26/20 12:19>
--- NOTE | 2020-05-26 12:19 | PM.EVENT ---
Event Note Date of Service: 05/26/20 Event Note: Addendum to H and P by Mid-level Provider I saw and examined the patient and participated in the holm portion of the E/M service. I agree with the history and exam as documented by ELECTRODE CLEANER. Patient has acute Pyelonephrisis, Sepsis and meet sepsis criteria with elevated WBC and tachycaridia Will admit for IV antibiotics. Otherwise, I agree with assessment and plan as outlined in the H and P.
--- NOTE | 2020-05-26 12:25 | PC.NURSE ---
spoke with chargemaster specialist on floor, stating that pt was not supposed to be booked to their floor and she will call us back
--- NOTE | 2020-05-26 12:33 | PC.NURSE ---
report given to floor
[2020-05-26] MEDS: 0.9 % Sodium Chloride 1,000 ML 125 ML IVCONT (15:52)
[2020-05-26] MEDS: 0.9 % Sodium Chloride Flush 3 ML SYRINGE IVFLUSH (16:35)
[2020-05-26] MEDS: Acetaminophen 325 MG TABLET 650 MG PO (19:41)
[2020-05-27] MEDS: 0.9 % Sodium Chloride 1,000 ML 125 ML IVCONT ×2 (00:11→07:52)
[2020-05-27] MEDS: cefTRIAXone sodium 1 GM in 0.9 % Sodium Chloride 50 ML IV (05:06)
[2020-05-27 06:58] LABS: Basophils Percent Auto 0.3 % (0-2); Eosinophils Absolute Auto 0.6 X10*3/uL (0.0-0.4); Eosinophils Percent Auto 4.3 % (0-4); Hematocrit 38.6 % (37-47); Hemoglobin 12.2 g/dl (12.0-16.0); Imm Gran Abs Auto 0.07 X10*3/uL (0.00-0.03); Imm Gran Pct Auto 0.5 % (0.0-0.4); Lymphocytes Absolute Auto 1.7 X10*3/uL (1.2-4.9); Lymphocytes Percent Auto 13.4 % (20-40); MANUAL DIFF FLAG SCAN; Mean Corpuscular HGB Conc 31.6 g/dl (31.0-35.0); Mean Corpuscular Hemoglobin 27.9 pg (27.0-33.0); Mean Corpuscular Volume 88.3 fL (80-98); Mean Platelet Volume 10.1 fL (9.4-12.3); Monocytes Absolute Auto 1.5 X10*3/uL (0.1-1.2); Monocytes Percent Auto 11.7 % (2-11); Neutrophils Percent Auto 69.8 % (45-73); Platelet Count 257 X10*3/uL (160-400); Red Blood Count 4.37 X10*6/uL (4.20-5.50); Red Cell Distribution Width 12.7 % (11.0-16.0); SCAN SMEAR FLAG 1; White Blood Count 12.9 X10*3/uL (4.8-10.8)
[2020-05-27 07:20] LABS: Anion Gap 12 (12-20); Blood Urea Nitrogen 23 mg/dL (9-16); Calcium 8.3 mg/dL (8.4-10.2); Carbon Dioxide 23 mmol/L (22-29); Chloride 108 mmol/L (96-108); Creatinine Clr Calc Pharmacy 61.1; Estimated Glomerular Filt Rate 47; Glucose Random 114 mg/dL (60-115); Potassium 4.2 mmol/l (3.3-5.1); Sodium 139 mmol/L (135-145)
[2020-05-27 07:34] LABS: SLIDE REVIEW VERIFIED
[2020-05-27 07:48] VITALS: BP 118/63; PULSE 95; RESP 18; TEMP 37.1; O2SAT 98
--- NOTE | 2020-05-27 10:03 | P.DS_ITS ---
DS: Providers Provider Date of admission: 05/26/20 10:07 Date of service and Date of discharge: 05/27/20 Primary care physician: [facility] DS: Diagnosis Discharge Diagnosis (1) Sepsis: Status: Acute (2) Pyelonephritis: Status: Acute DS: Medications Discharge Medications Home Medications: Home Medications Medication Instructions Recorded Confirmed loratadine 10 mg PO DAILY PRN 05/26/20 05/26/20 ofloxacin 10 drp OTIC (EARS) DAILY 05/26/20 05/26/20 Previous Rx's Medication Instructions Recorded cefuroxime axetil 500 mg PO BID 7 Days #28 tab 05/27/20 DS: Summary Hospital Course Hospital Course: 24 year old women presenting with back pain, nausea and vomiting. She was work ing yesterday and suddenly developed back pain. She took motrin with some relief. When she arrived at home she started to have pain again so she took a shower and used a heating pad. Around midnight she took an aleve with no effect. She has a history of renal calculi. In the ED, She did have an elevated WBC and elevated creatinine. Abdominal CT showed perinephric stranding. She was given Rocephin. She will be admitted for RENETTA and pyelonephriti Hospital course: Patient was admitted overnight and treated with IV Ceftriaxone for Pyelonephriis with good effect. WBC decreased .Her symptoms have resolved and discharged home with ceftin for total of 14 days. She afebrile at time of discharge and comfortable going kj.[id number] Status at Discharge Functional status at discharge: independent ambulation Time Spent with Patient Time attestation: Total time spent providing and/or coordinating discharge services: Physical Exam Vital Signs: Vital Signs: Last Vital Signs Temp 98.8 F 05/27/20 07:48 Pulse 95 05/27/20 07:48 Resp 18 05/27/20 07:48 BP 118/63 05/27/20 07:48 Pulse Ox 98 05/27/20 07:48 Body Mass Index 31.2 DS: Data Data Completed and Pending Labs on day of discharge: 05/26/20 02:47 fentaNYL citrate/PF [Sublimaze] 25 mcg IVPUSH ONCE ONE ondansetron HCL [Zofran] 4 mg IVPUSH ONCE ONE 05/26/20 02:48 IV insert/maintain .Now 05/26/20 03:06 Complete Blood Count Auto Diff Stat Comprehensive Met. Panel Stat SLIDE REVIEW Stat Ur Preg Test Stat 05/26/20 03:49 0.9 % Sodium Chloride [Ns] 1,000 ml IV 999 mls/hr 05/26/20 03:54 CT abdomen pelvis wo con Stat 05/26/20 04:32 Lactic Acid Stat 05/26/20 05:30 ED Diet NOW 05/26/20 05:31 0.9 % Sodium Chloride [Ns] 1,503 ml IVCONT 1,503 mls/hr 05/26/20 05:56 cefTRIAXone sodium [Rocephin] 1 gm 0.9 % Sodium Chloride [Ns] 50 ml IV ONCE 05/26/20 06:12 Consult Rx Perform Med Rec 1 each MISCELLANE ONCE PRN 05/26/20 06:16 cefTRIAXone sodium [Rocephin] 1 gm .ROUTE .STK-MED ONE 05/26/20 06:35 COVID-19 ID NOW ([place]) Stat 05/26/20 09:10 Ketorolac Tromethamine [Toradol] 30 mg IV ONCE STA 05/26/20 10:05 Transfer Order Routine 05/26/20 10:06 Code Status Routine 05/26/20 12:30 0.9 % Sodium Chloride [Ns] 1,000 ml IVCONT 125 mls/hr 05/26/20 13:50 Acetaminophen [Tylenol] 650 mg PO Q6H PRN ondansetron HCL [Zofran] 4 mg IVPUSH Q8H PRN 05/26/20 13:50 Ambulate QSHIFT WHILE AWAKE IV insert/maintain Q4HR Intake and Output QSHIFTE Vital Signs QSHIFT 05/26/20 16:00 0.9 % Sodium Chloride Flush [NS Flush] 3 ml IVFLUSH QSHIFT 05/27/20 05:02 cefTRIAXone sodium [Rocephin] 1 gm .ROUTE .STK-MED ONE 05/27/20 06:00 cefTRIAXone sodium [Rocephin] 1 gm 0.9 % Sodium Chloride [Ns] 50 ml IV Q24H 05/27/20 06:16 Basic Metabolic Panel DAILY@0600 Complete Blood Count Auto Diff DAILY@0600 SLIDE REVIEW Routine 05/27/20 09:55 Add Laboratory Test Routine Laboratory Last Values WBC 12.9 X10*3/uL (4.8-10.8) H 05/27/20 06:16 RBC 4.37 X10*6/uL (4.20-5.50) 05/27/20 06:16 Hgb 12.2 g/dl (12.0-16.0) 05/27/20 06:16 Hct 38.6 % (37-47) 05/27/20 06:16 MCV 88.3 fL (80-98) 05/27/20 06:16 MCH 27.9 pg (27.0-33.0) 05/27/20 06:16 MCHC 31.6 g/dl (31.0-35.0) 05/27/20 06:16 RDW 12.7 % (11.0-16.0) 05/27/20 06:16 Plt Count 257 X10*3/uL (160-400) 05/27/20 06:16 MPV 10.1 fL (9.4-12.3) 05/27/20 06:16 Immature Gran % (Auto) 0.5 % (0.0-0.4) H 05/27/20 06:16 Neut % (Auto) 69.8 % (45-73) 05/27/20 06:16 Lymph % (Auto) 13.4 % (20-40) L 05/27/20 06:16 [place] % (Auto) 11.7 % (2-11) H 05/27/20 06:16 Eos % (Auto) 4.3 % (0-4) H 05/27/20 06:16 Baso % (Auto) 0.3 % (0-2) 05/27/20 06:16 Lymph # (Auto) 1.7 X10*3/uL (1.2-4.9) 05/27/20 06:16 [place] # (Auto) 1.5 X10*3/uL (0.1-1.2) H 05/27/20 06:16 Eos # (Auto) 0.6 X10*3/uL (0.0-0.4) H 05/27/20 06:16 Baso # (Auto) 0.0 X10*3/uL (0.0-0.2) 05/27/20 06:16 Abs Immat Gran (auto) 0.07 X10*3/uL (0.00-0.03) H 05/27/20 06:16 Absolute Neuts (auto) 9.0 X10*3/uL (2.0-8.3) H 05/27/20 06:16 Absolute Nucleated RBC 0.000 X10*3/uL (0.0-0.012) 05/27/20 06:16 Nucleated RBC % (auto) 0.0 /100WBC (0.0-0.2) 05/27/20 06:16 Smear Tech's Comments VERIFIED 05/27/20 06:16 Sodium 139 mmol/L (135-145) 05/27/20 06:16 Potassium 4.2 mmol/l (3.3-5.1) 05/27/20 06:16 Chloride 108 mmol/L (96-108) 05/27/20 06:16 Carbon Dioxide 23 mmol/L (22-29) 05/27/20 06:16 Anion Gap 12 (-) 05/27/20 06:16 BUN 23 mg/dL (9-16) H 05/27/20 06:16 Creatinine 1.38 mg/dL (0.5-1.4) 05/27/20 06:16 Estim Creat Clear Calc 61.1 05/27/20 06:16 Estimated GFR 47 05/27/20 06:16 Random Glucose 114 mg/dL (60-115) 05/27/20 06:16 Lactic Acid 2.0 mmol/L (0.5-2.0) 05/26/20 04:32 Calcium 8.3 mg/dL (8.4-10.2) L D 05/27/20 06:16 Total Bilirubin 0.4 mg/dL (0.0-1.0) 05/26/20 03:06 AST 26 U/L (5-31) D 05/26/20 03:06 ALT 26 U/L (0-31) 05/26/20 03:06 Alkaline Phosphatase 84 U/L (39-117) 05/26/20 03:06 Total Protein 7.1 g/dL (6.5-8.0) 05/26/20 03:06 Albumin 4.4 g/dL (3.5-5.0) 05/26/20 03:06 Urine Color STRAW 05/26/20 03:06 Urine Appearance CLEAR 05/26/20 03:06 Urine pH 5.5 (5.0-8.0) 05/26/20 03:06 Ur Specific [place] 1.020 (1.005-1.025) 05/26/20 03:06 Urine Protein 2+ MG/DL (NEG-TRACE) H 05/26/20 03:06 Urine Glucose (UA) NEG MG/DL (NEG) 05/26/20 03:06 Urine Ketones NEG MG/DL (NEG) 05/26/20 03:06 Urine Blood TRACE (NEG) 05/26/20 03:06 Urine Nitrite NEG (NEG) 05/26/20 03:06 Ur Leukocyte Esterase NEG (NEG) 05/26/20 03:06 Urine RBC 1-4 /HPF (0) 05/26/20 03:06 Urine WBC 0-2 /HPF (0-4) 05/26/20 03:06 Ur Squamous Epith Cells 1+ /LPF 05/26/20 03:06 Ur Renal Epithelial Cell TRACE /LPF 05/26/20 03:06 Urine Bacteria NONE /LPF 05/26/20 03:06 Urine Mucus TRACE /LPF 05/26/20 03:06 Urine Test NEGATIVE (NEGATIVE) 05/26/20 03:06 COVID-19 (BRYAN) Negative (Negative) 05/26/20 06:35 COVID-19 Clin Com See Note 05/26/20 06:35 Preliminary micro results at discharge 05/26/20 03:06 Urine Culture - Preliminary Urine clean catch - Clean Catch Midstream Culture in progress. 05/26/20 04:32 Blood Culture - Preliminary Blood - Venous No growth after 48 hours. 05/26/20 04:32 Blood Culture - Preliminary Blood - Venous No growth after 48 hours. Discharge Plan Discharge Anticipated Discharge Date/Time: 05/27/20 09:56 Patient Disposition: Home, Self-Care Referrals: Anjali Al NP [Nurse Practitioner] - 1 Week (Tele Visit 06/01/2020 @ 1:30pm.. Anjali Al CUSTOMER SUCCESS ASSOCIATE will call you to discuss your hospital stay.) Discharge Medications: New cefuroxime axetil 500 mg tablet 500 mg PO BID 7 Days Qty: 28 RF: 0 Continued ofloxacin 0.3 % drops 10 drp otic (ears) DAILY RF: 0 loratadine 10 mg tablet 10 mg PO DAILY PRN (Reason: Allergic Symptoms) RF: 0 Discharge Orders: Discharge Order (Routine); Ordered 05/27/20 Ordered By: Elmo Dominguez Diet: advance to usual diet Activity on Discharge: As tolerated Stand Alone Forms: Community Support, Work/School Release Discharge Date/Time: 05/27/20 14:00 Other Ambulatory Orders: Basic Metabolic Panel (Routine) Timeframe: 1 Week Facility: [facility] - Location: Laboratory Ordered By: Elmo Dominguez Visit Report Forms: Patient Portal Discharge page Care Plan Goals: Resolution of Pyelonephritis Health Concerns: pyelonephritis, renal failure Plan of Treatment: Take Cefuroxime as directed, follow up with PCP in a week, call for appointment. Have repeat lab done in a week
--- NOTE | 2020-05-27 10:13 | MHC.CM.PN ---
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 PATIENT REPORTED THAT SHE STARTED HAVING BACK PAIN ON MONDAY AND THEN STARTED HAVING NAUSEA AND VOMITING., SHE REPORTED THAT SHE IS FEELING BETTER NOW AND AFTER SPEAKING WITH PHYSICIAN SHE SHE ANTICIPATES THAT SHE MIGHT BE DISCHARGED TODAY , DISCHARGE PLAN HOME NO SERVICES , (LIVES WITH HER PARENTS , WHOM WILL PICK HER UP AT DISCHARGE. CONFIRMED PCP DR DIPAK WILSON AT THE [facility] ENCOURAGED HER TO CALL FOR POST HOSPITAL DISCHARFGE FOLLOW UP PHARMACY [facility]
== END 2020-05-27 14:00 | disposition home or self-care (01) | DRG 720 ==
LOC: HO.ED 06:33 → HO.S3 12:25
PROVIDERS: Nurse Practitioner Acute Care; Admitting Provider Internal Medicine; Emergency Provider Student in an Organized Health Care Education/Training Program; Visit Provider Internal Medicine
DX: A41.9 Sepsis, unspecified organism (principal); N17.9 Acute kidney failure, unspecified; N12 Tubulo-interstitial nephritis, not specified as acute or chronic; Z20.828 Contact with and (suspected) exposure to other viral communicable diseases; Z88.2 Allergy status to sulfonamides; Z79.899 Other long term (current) drug therapy
CPT/HCPCS: 36415; 74176; 80048; 80053; 81001; 81025; 83605; 85025; 87040; 87086; 87147; 87635; 96361; 96374; 96375; 99283; 99284; 99285; J0696; J1885; J2405; J3010

== ENCOUNTER 2020-06-05 16:45 | Emergency (ER) | payer OTHER, SELFPAY ==
[2020-06-05 17:07] VITALS: BP 160/95; PULSE 90; RESP 18; TEMP 36.3; O2SAT 99; BMI 30.7
== END 2020-06-05 19:19 | disposition left against medical advice (07) ==
PROVIDERS: Emergency Provider Emergency Medicine
DX: M54.5 Low back pain (principal)
CPT/HCPCS: 99281; 99282

== ENCOUNTER 2021-10-22 07:28 | Outpatient (REF) | payer OTHER, SELFPAY ==
--- NOTE | ~2021-10-22 | XR_ITS ---
EXAMINATION: XR SHOULDER, LEFT CLINICAL INFORMATION: Left shoulder pain COMPARISON: 01/21/2015 TECHNIQUE: Three views of the left shoulder. FINDINGS: No fracture or dislocation. The glenohumeral joint is well aligned. The acromioclavicular joint is intact. The visualized lung is clear. The visualized ribs are intact. XR/XR shoulder LT min 2V IMPRESSION: Normal left shoulder.
== END 2021-10-22 07:29 | disposition home or self-care (01) ==
LOC: HO.HOSX 07:28
PROVIDERS: Visit Provider Physician Assistant
DX: M54.12 Radiculopathy, cervical region (principal); M75.52 Bursitis of left shoulder; M75.22 Bicipital tendinitis, left shoulder
CPT/HCPCS: 73030; 99202

== ENCOUNTER 2021-11-07 16:07 | Emergency (ER) | payer OTHER, SELFPAY ==
--- NOTE | ~2021-11-07 | CT_ITS ---
EXAMINATION: CT ABDOMEN AND PELVIS WITHOUT CONTRAST CLINICAL INFORMATION: Abdominal pain COMPARISON: CT abdomen pelvis 05/17/2020 TECHNIQUE: Multidetector volumetric imaging was performed from the superior aspect of the liver through the pubic symphysis. Sagittal and coronal reformatted images were obtained on the technologist's workstation. This CT examination was performed using dose optimization techniques as appropriate, variously including the following: *Automated exposure control *Adjustment of mA and/or kV according to patient size (this includes techniques or standardized protocols for targeted exams where dose is matched to indication/reason for exam; i.e. extremities or head) *Use of iterative reconstruction technique DLP: 646 mGy-cm FINDINGS: LUNG BASES: Unremarkable. ABDOMINAL AND PELVIC WALL: Unremarkable. LIVER AND BILIARY TREE: Unremarkable. GALLBLADDER: Status post cholecystectomy. PANCREAS: Unremarkable. SPLEEN: Unremarkable. ADRENAL GLANDS: Unremarkable. KIDNEYS AND URETERS: Punctate nonobstructing right midpole renal stone. No hydronephrosis or obstructive ureterolithiasis. GASTROINTESTINAL TRACT: Large and small bowel are unremarkable. Normal appendix. VASCULAR: Unremarkable. LYMPH NODES/PERITONEUM: No lymphadenopathy. FREE FLUID: None. BLADDER: Unremarkable. PELVIC VISCERA: Unremarkable. OSSEOUS STRUCTURES: Unremarkable. CT/CT abdomen pelvis wo con IMPRESSION: Punctate nonobstructing right midpole renal stone. No hydronephrosis or obstructive ureterolithiasis.
[2021-11-07 16:18] VITALS: BP 126/86; PULSE 71; RESP 18; TEMP 36.3; O2SAT 99; BMI 31.6
[2021-11-07 16:51] LABS: MANUAL DIFF FLAG NO
[2021-11-07 16:52] LABS: Basophils Absolute Auto 0.1 X10*3/uL (0.0-0.2); Basophils Percent Auto 0.5 % (0-2); Eosinophils Absolute Auto 0.8 X10*3/uL (0.0-0.4); Eosinophils Percent Auto 7.2 % (0-4); Hematocrit 41.6 % (37.0-47.0); Hemoglobin 13.4 g/dl (12.0-16.0); Imm Gran Abs Auto 0.04 X10*3/uL (0.00-0.03); Imm Gran Pct Auto 0.4 % (0.0-0.4); Lymphocytes Absolute Auto 2.2 X10*3/uL (1.2-4.9); Lymphocytes Percent Auto 20.7 % (20-40); Mean Corpuscular HGB Conc 32.2 g/dl (31.0-35.0); Mean Corpuscular Hemoglobin 27.2 pg (27.0-33.0); Mean Corpuscular Volume 84.4 fL (80.0-98.0); Mean Platelet Volume 9.4 fL (9.4-12.3); Monocytes Absolute Auto 0.8 X10*3/uL (0.1-1.2); Monocytes Percent Auto 7.9 % (2-11); Neutrophils Absolute Auto 6.6 x10*3/uL (2.0-8.3); Neutrophils Percent Auto 63.3 % (45-73); Platelet Count 334 X10*3/uL (160-400); Red Blood Count 4.93 X10*6/uL (4.20-5.50); Red Cell Distribution Width 13.9 % (11.0-16.0); White Blood Count 10.4 X10*3/uL (4.8-10.8)
[2021-11-07 17:05] LABS: Anion Gap 12 (12-20); Blood Urea Nitrogen 11 mg/dL (9-16); Calcium 9.4 mg/dL (8.4-10.2); Carbon Dioxide 24 mmol/L (22-29); Chloride 107 mmol/L (96-108); Creatinine Clr Calc Pharmacy 119.2; Estimated Glomerular Filt Rate > 60; Glucose Random 112 mg/dL (60-115); Sodium 139 mmol/L (135-145)
--- NOTE | 2021-11-07 18:16 | ED.ABDPAIN ---
HPI - Abdominal Pain General Chief Complaint: Abdominal Pain Stated Complaint: Bowel Obstruction Time Seen by Provider: 11/07/21 17:59 Source: patient Mode of arrival: ambulatory Limitations: no limitations History of Present Illness MD elicited complaint: abdominal pain Pertinent past history: other (s/p gallbladder removal and kidney stones) Onset (ago): day(s) (Monday night after cookout) Pain Consistency: intermittent Location: RUQ and RLQ Severity: moderate Quality: aching Radiation: none Migration to: no migration Exacerbating factors: eating Relieving factors: nothing Context: possible food poisoning Associated symptoms: nausea, vomiting and diarrhea Related Data Home Medications Medication Instructions Recorded Confirmed loratadine 10 mg tablet 10 mg PO DAILY PRN Allergic 05/26/20 05/26/20 Symptoms ofloxacin 0.3 % ear drops 10 drp otic (ears) DAILY 05/26/20 05/26/20 vitamin with calcium 1 tab PO DAILY 10/22/21 no.72-iron 27 mg-folic acid 1 mg tablet (M-Raheem Plus) Previous Rx's Medication Instructions Recorded cefuroxime axetil 500 mg tablet 500 mg PO BID 7 days #28 tabs 05/27/20 naproxen 500 mg tablet 500 mg PO BID 30 days #60 tabs 10/22/21 Allergies Allergy/AdvReac Type Severity Reaction Status Date / Time terbinafine [TERBINAFINE] Allergy Severe ANAPHYLAXIS Verified 10/22/21 08:16 sulfamethoxazole Allergy Angioedema Verified 10/22/21 08:16 [From Bactrim] trimethoprim [From Bactrim] Allergy Angioedema Verified 10/22/21 08:16 Review of Systems Review of Systems Constitutional : No Weight loss, No Fever, No Chills ENT/Mouth : No sore throat, No Rhinorrhea Eyes: No Swelling, No Redness Cardiovascular : No Chest Pain, No SOB, NoEdema Respiratory : No Cough, No Sputum, No Wheezing Gastrointestinal : Positive Nausea, Positive Vomiting, positive Diarrhea, positive abdominal Pain, No Hematochezia, No Melena Genitourinary : No Dysuria, No Urinary Frequency, No Hematuria, No Urgency Musculoskeletal : No joint pain, No Myalgias, No Joint Swelling Skin : No Skin Lesions, No rash Neuro : No Weakness, No Numbness, No Dizziness, No Headache Psych : No Anxiety/Panic, No Depression Heme/Lymph: No Bruising, No Lymphadenopathy Endocrine : No Polyuria, No Polydipsia All other systems reviewed and are negative. 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 Oriented X3. No acute distress. Eyes: Pupils equal, round and reactive to light. ENT: Pharynx normal. Neck: Normal inspection. Neck supple. CVS: Normal heart rate and rhythm. Pulses normal. Respiratory: No respiratory distress. Breath sounds normal. Abdomen: Soft and moderate RUQ and RLQ pain no rebound Skin: Skin warm and dry. Normal skin color. Normal skin turgor. Extremities: No lower extremity edema. No calf ttp Neuro: Oriented X 3. No motor deficit. No sensory deficit. Course Course Course Narrative: signed out to Adeline COLÓN pending CT scan labs normal if CT scan normal can be DC home MDM - Abdominal Pain MDM Narrative Medical decision making narrative: 26 yo female with hx of cholecystectomy here with 2 days of RUQ and RLQ pain with n/v/d and not feeling well feels like her GB - at this time will obtain labs, UA, CT scan for renal colic, retained stone, appendicitis - dispo per results and findings. Lab Data Result diagrams: 11/07/21 16:46 11/07/21 16:46 Labs: Lab Results 11/07/21 11/07/21 11/07/21 Range/Units 16:46 16:46 19:18 WBC 10.4 (4.8-10.8) X10*3/uL RBC 4.93 (4.20-5.50) X10*6/uL Hgb 13.4 (12.0-16.0) g/dl Hct 41.6 (37.0-47.0) % MCV 84.4 (80.0-98.0) fL MCH 27.2 (27.0-33.0) pg MCHC 32.2 (31.0-35.0) g/dl RDW 13.9 (11.0-16.0) % Plt Count 334 (160-400) X10*3/uL MPV 9.4 (9.4-12.3) fL Immature Gran % (Auto) 0.4 (0.0-0.4) % Neut % (Auto) 63.3 (45-73) % Lymph % (Auto) 20.7 (20-40) % Dickens % (Auto) 7.9 (2-11) % Eos % (Auto) 7.2 H (0-4) % Baso % (Auto) 0.5 (0-2) % Lymph # (Auto) 2.2 (1.2-4.9) X10*3/uL Dickens # (Auto) 0.8 (0.1-1.2) X10*3/uL Eos # (Auto) 0.8 H (0.0-0.4) X10*3/uL Baso # (Auto) 0.1 (0.0-0.2) X10*3/uL Abs Immat Gran (auto) 0.04 H (0.00-0.03) X10*3/uL Absolute Neuts (auto) 6.6 (2.0-8.3) x10*3/uL Absolute Nucleated RBC 0.000 (0.0-0.012) X10*3/uL Nucleated RBC % (auto) 0.0 (0.0-0.2) /100WBC Sodium 139 (135-145) mmol/L Potassium 4.0 (3.3-5.1) mmol/L Chloride 107 (96-108) mmol/L Carbon Dioxide 24 (22-29) mmol/L Anion Gap 12 (12-20) BUN 11 (9-16) mg/dL Creatinine 0.70 (0.5-1.4) mg/dL Estim Creat Clear Calc 119.2 Estimated GFR > 60 Random Glucose 112 (60-115) mg/dL Calcium 9.4 D (8.4-10.2) mg/dL Total Bilirubin 0.5 (0.0-1.0) mg/dL Direct Bilirubin 0.2 (0.0-0.5) mg/dL AST 15 D (5-31) U/L ALT 23 (0-31) U/L Alkaline Phosphatase 72 (39-117) U/L Total Protein 7.0 (6.5-8.0) g/dL Albumin 4.4 (3.5-5.0) g/dL Lipase 19 (8-78) U/L Urine Color YELLOW Urine Appearance CLEAR Urine pH 5.5 (5.0-8.0) Ur Specific [place] 1.025 (1.005-1.025) Urine Protein NEG (NEG-TRACE) MG/DL Urine Glucose (UA) NEG (NEG) MG/DL Urine Ketones NEG (NEG) MG/DL Urine Blood NEG (NEG) Urine Nitrite NEG (NEG) Ur Leukocyte Esterase 1+ H (NEG) Urine RBC 0-2 (0) /HPF Urine WBC 5-9 H (0-4) /HPF Ur Squamous Epith Cells TRACE /LPF Urine Bacteria TRACE /LPF Urine Mucus TRACE /LPF Urine Test (NEGATIVE) 11/07/21 Range/Units 19:18 WBC (4.8-10.8) X10*3/uL RBC (4.20-5.50) X10*6/uL Hgb (12.0-16.0) g/dl Hct (37.0-47.0) % MCV (80.0-98.0) fL MCH (27.0-33.0) pg MCHC (31.0-35.0) g/dl RDW (11.0-16.0) % Plt Count (160-400) X10*3/uL MPV (9.4-12.3) fL Immature Gran % (Auto) (0.0-0.4) % Neut % (Auto) (45-73) % Lymph % (Auto) (20-40) % Dickens % (Auto) (2-11) % Eos % (Auto) (0-4) % Baso % (Auto) (0-2) % Lymph # (Auto) (1.2-4.9) X10*3/uL Dick[place] # (Auto) (0.1-1.2) X10*3/uL Eos # (Auto) (0.0-0.4) X10*3/uL Baso # (Auto) (0.0-0.2) X10*3/uL Abs Immat Gran (auto) (0.00-0.03) X10*3/uL Absolute Neuts (auto) (2.0-8.3) x10*3/uL Absolute Nucleated RBC (0.0-0.012) X10*3/uL Nucleated RBC % (auto) (0.0-0.2) /100WBC Sodium (135-145) mmol/L Potassium (3.3-5.1) mmol/L Chloride (96-108) mmol/L Carbon Dioxide (22-29) mmol/L Anion Gap (12-20) BUN (9-16) mg/dL Creatinine (0.5-1.4) mg/dL Estim Creat Clear Calc Estimated GFR Random Glucose (60-115) mg/dL Calcium (8.4-10.2) mg/dL Total Bilirubin (0.0-1.0) mg/dL Direct Bilirubin (0.0-0.5) mg/dL AST (5-31) U/L ALT (0-31) U/L Alkaline Phosphatase (39-117) U/L Total Protein (6.5-8.0) g/dL Albumin (3.5-5.0) g/dL Lipase (8-78) U/L Urine Color Urine Appearance Urine pH (5.0-8.0) Ur Specific [place] (1.005-1.025) Urine Protein (NEG-TRACE) MG/DL Urine Glucose (UA) (NEG) MG/DL Urine Ketones (NEG) MG/DL Urine Blood (NEG) Urine Nitrite (NEG) Ur Leukocyte Esterase (NEG) Urine RBC (0) /HPF Urine WBC (0-4) /HPF Ur Squamous Epith Cells /LPF Urine Bacteria /LPF Urine Mucus /LPF Urine Test NEGATIVE (NEGATIVE) Discharge Plan Discharge Clinical Impression: Abdominal pain Patient Disposition: Still a Patient Prescriptions: No Action ofloxacin 0.3 % drops 10 drp otic (ears) DAILY Rx Instructions: 10 DROPS INTO AFFECTED EAR (S) ONCE DAILY loratadine 10 mg tablet 10 mg PO DAILY PRN (Reason: Allergic Symptoms) cefuroxime axetil 500 mg tablet 500 mg PO BID 7 Days Qty: 28 0RF M- Plus 27 mg iron- 1 mg tablet 1 tab PO DAILY naproxen 500 mg tablet 500 mg PO BID 30 Days Qty: 60 3RF
[2021-11-07 18:20] LABS: Alanine Aminotransferase 23 U/L (0-31); Albumin Level 4.4 g/dL (3.5-5.0); Alkaline Phosphatase 72 U/L (39-117); Aspartate Amino Transferase 15 U/L (5-31); Bilirubin Direct 0.2 mg/dL (0.0-0.5); Bilirubin Total 0.5 mg/dL (0.0-1.0); Lipase 19 U/L (8-78)
[2021-11-07 19:32] VITALS: BP 122/86; PULSE 66; RESP 18; TEMP 36.7; O2SAT 97
[2021-11-07 19:34] LABS: Appearance Urine CLEAR; Color Urine YELLOW; Glucose Urine UA NEG (NEG); Leukocyte Esterase Urine 1+ (NEG); Nitrite Urine NEG (NEG); PH 5.5 (5.0-8.0); Specific Gravity - Urine 1.025 (1.005-1.025); UACC Culture Trigger YES; Urine Blood NEG (NEG); Urine Ketones NEG (NEG); Urine Protein NEG (NEG-TRACE)
[2021-11-07 19:36] LABS: UPreg QC Valid YES; Urine Pregnancy NEGATIVE (NEGATIVE)
[2021-11-07 19:46] LABS: Bacteria Urine TRACE /LPF; Mucus Urine TRACE /LPF; RBC Urine 0-2 /HPF (0); Squamous Epithelial Cell Urine TRACE /LPF
[2021-11-07] MEDS: Ketorolac Tromethamine 30 MG/ML VIAL IVPUSH (20:43)
[2021-11-07] MEDS: Famotidine/PF 20 MG/2 ML VIAL IVPUSH (20:43)
[2021-11-07] MEDS: ondansetron HCL 4 MG/2 ML VIAL IVPUSH (20:43)
[2021-11-07] MEDS: Morphine Sulfate Immed Release 15 MG TABLET PO (23:05)
[2021-11-08 00:38] VITALS: BP 112/79; PULSE 68; RESP 16; TEMP 36.3; O2SAT 98
== END 2021-11-08 01:01 | disposition home or self-care (01) ==
PROVIDERS: Emergency Provider Emergency Medicine
DX: R10.11 Right upper quadrant pain (principal); R10.31 Right lower quadrant pain; N20.0 Calculus of kidney; Z90.49 Acquired absence of other specified parts of digestive tract
CPT/HCPCS: 36415; 74176; 80048; 80076; 81001; 81025; 83690; 85025; 87086; 87147; 96374; 96375; 99284; J1885; J2405

== ENCOUNTER → 2021-11-22 15:52 | Outpatient (BNVA) | payer OTHER, SELFPAY | PROVIDERS: Visit Provider Nurse Practitioner | DX: R10.13 Epigastric pain (principal); R10.9 Unspecified abdominal pain | CPT/HCPCS: 99202 ==

== ENCOUNTER → 2021-12-01 13:24 | Outpatient (BNVA) | payer OTHER, SELFPAY | PROVIDERS: Visit Provider Physician Assistant | DX: M75.22 Bicipital tendinitis, left shoulder (principal); M75.52 Bursitis of left shoulder | CPT/HCPCS: 20610; 99212; J1020 ==

== ENCOUNTER 2021-12-10 13:21 | Inpatient (IN) | payer OTHER, SELFPAY ==
[2021-12-10 13:45] VITALS: BP 144/92; PULSE 75; RESP 18; TEMP 36.6; O2SAT 99; BMI 32.7
[2021-12-10 14:51] LABS: MANUAL DIFF FLAG NO
[2021-12-10 14:53] LABS: Basophils Absolute Auto 0.1 X10*3/uL (0.0-0.2); Basophils Percent Auto 0.6 % (0-2); Eosinophils Absolute Auto 0.5 X10*3/uL (0.0-0.4); Eosinophils Percent Auto 4.2 % (0-4); Hemoglobin 13.2 g/dl (12.0-16.0); Imm Gran Abs Auto 0.07 X10*3/uL (0.00-0.03); Imm Gran Pct Auto 0.6 % (0.0-0.4); Lymphocytes Absolute Auto 2.4 X10*3/uL (1.2-4.9); Lymphocytes Percent Auto 20.2 % (20-40); Mean Corpuscular HGB Conc 32.2 g/dl (31.0-35.0); Mean Corpuscular Hemoglobin 27.4 pg (27.0-33.0); Mean Corpuscular Volume 85.2 fL (80.0-98.0); Mean Platelet Volume 9.9 fL (9.4-12.3); Monocytes Absolute Auto 1.2 X10*3/uL (0.1-1.2); Monocytes Percent Auto 9.8 % (2-11); Neutrophils Absolute Auto 7.6 x10*3/uL (2.0-8.3); Neutrophils Percent Auto 64.6 % (45-73); Platelet Count 322 X10*3/uL (160-400); Red Blood Count 4.81 X10*6/uL (4.20-5.50); Red Cell Distribution Width 13.4 % (11.0-16.0); White Blood Count 11.8 X10*3/uL (4.8-10.8)
[2021-12-10 15:14] LABS: Anion Gap 13 (12-20); Blood Urea Nitrogen 13 mg/dL (9-16); Calcium 9.3 mg/dL (8.4-10.2); Carbon Dioxide 26 mmol/L (22-29); Chloride 105 mmol/L (96-108); Creatinine Clr Calc Pharmacy 111.7; Estimated Glomerular Filt Rate > 60; Glucose Random 97 mg/dL (60-115); Potassium 4.4 mmol/L (3.3-5.1); Sodium 140 mmol/L (135-145)
--- NOTE | 2021-12-10 16:11 | ED_ITS ---
HPI - Extremity Problem General Chief complaint: Extremity Problem Stated complaint: leg pain Time Seen by Provider: 12/10/21 15:34 Source: patient Mode of arrival: ambulatory Limitations: no limitations History of Present Illness HPI Narrative: 26-year-old female presenting to the ER with complaints of bilateral thigh/leg pain that is now radiating to her back and having difficulty walking unable to even bend her knees since Monday after she did a spin class for 30 minutes. She reports that she did at her own pace and she sat down most of the time while doing the exercising. She reports she only stood up on the spin bike for 10 minutes. The rest of the time she sat down. She reports that she also stretch before and after. She denies any falls. She denies any other symptoms complaints concerns or injuries at this time. MD Complaint: extremity pain Onset (ago): day(s) (2) Pain Consistency: constant Location: left, right and lower extremity Severity scale (1-10): >10 Quality: aching and constant Radiation: proximal Relieving factors: nothing Exacerbating factors: range of motion, weight bearing, walking and palpation Associated symptoms: denies other symptoms Related Data Home Medications Medication Instructions Recorded Confirmed vitamin with calcium 1 tab PO DAILY 12/10/21 12/10/21 no.72-iron 27 mg-folic acid 1 mg tablet ( Vitamins Plus Low Iron) Allergies Allergy/AdvReac Type Severity Reaction Status Date / Time terbinafine [TERBINAFINE] Allergy Severe ANAPHYLAXIS Verified 12/10/21 13:49 sulfamethoxazole Allergy Angioedema Verified 12/10/21 13:49 [From Bactrim] trimethoprim [From Bactrim] Allergy Angioedema Verified 12/10/21 13:49 Review of Systems 2 Review of Systems: Constitutional : No Weight loss, No Fever, No Chills, No Night Sweats, No Fatigue, No Malaise ENT/Mouth : No Hearing loss, No Ear Pain, No Nasal Congestion, No Sinus Pain, No Hoarseness, No sore throat, No Rhinorrhea, No Swallowing Difficulty Eyes: No Eye Pain, No Swelling, No Redness, No Foreign Body, No Discharge, No Vision Changes Cardiovascular : No Chest Pain, No SOB, No Dyspnea on Exertion, No Orthopnea, No Edema, No Palpitations Respiratory : No Cough, No Sputum, No Wheezing, No Smoke Exposure, No Dyspnea Gastrointestinal : No Nausea, No Vomiting, No Diarrhea, No Constipation, No abdominal Pain, No Hematochezia, No Melena Genitourinary : no irregular bleeding, No Dysuria, No Urinary Frequency, No Hematuria, No Urinary Incontinence, No Urgency, No Flank Pain, No Urinary Flow Changes, No Hesitancy Musculoskeletal : + bilateral thigh pain with associated difficulty walking, No additional joint pain, No Myalgias, No Joint Swelling Skin : No Skin Lesions, No rash Neuro : No Weakness, No Numbness, No Paresthesias, No Loss of Consciousness, No Dizziness, No Headache Psych : No Anxiety/Panic, No Depression, No SI/HI/AH/VH, No Social Issues, Heme/Lymph: No Bruising, No Bleeding,No Lymphadenopathy Endocrine : No Polyuria, No Polydipsia, No Temperature Intolerance Yes all other systems are reviewed and are negative [facility] Past Medical History Attestation statement: The following information was validated with the patient. Source: old records reviewed, obtained from family and nursing notes reviewed Medical History Kidney stones Surgical History History of esophagogastroduodenoscopy (EGD) Hx of cholecystectomy Family History Family History Mother Diabetes HTN (hypertension) Paternal Grandfather HTN (hypertension) Paternal Grandmother HTN (hypertension) Maternal Grandfather HTN (hypertension) Maternal Grandfather HTN (hypertension) Diabetes Maternal Grandmother HTN (hypertension) Social History Social History Alcohol intake: never Patient Tobacco Use Status: Never used Tobacco Advance Directives: No Advance Directives Information Provided: No service: No Current occupational status: employed 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 Blood pressure 144/92 Heart rate normal. Respiration rate normal. Temperature normal. Oxygen saturation normal. Appearance: Alert. Oriented X3. No acute distress. Head: Normal external exam. Normocephalic. Atraumatic. Eyes: PERRLA. EOMI. Conjunctiva and sclera normal. Eyelids normal. ENT: Pharynx normal. Uvula midline. Moist mucous membranes. Neck: Normal inspection. Neck supple. FROM. CVS: Normal heart rate and rhythm. Respiratory: No respiratory distress. Painless inspiration. Skin: Skin warm and dry. Normal skin color. Normal skin turgor. No rashes/lesions/lacerations noted. Extremities: Patient with bilateral thigh pain on the muscles and when she tries to lift her legs she has severe pain and unable to actually lift from the bed and she cannot bend her knees she would rather keep them and extension due to pain. Not consistent with muscle rupture. Not consistent with ligamentous or tendon rupture injury. Patient has full range of motion of bilateral hips and knees no obvious deformities. Not consistent fractures. There is no lower extremity edema or calf tenderness noted bilaterally. Otherwise all other extremities exhibit normal range of motion nontender for upper extremities. Neuro: Oriented X 3. No motor deficit. No sensory deficit. Reflexes normal. Patient needed assistance getting up from the bed and when she walks a keeps her knees straight and she has a slow steady gait although reports pain and reports it hurts like if someone is pulling her muscles per the patient. No focal neuro deficits noted. Vascular: + radial pulses/+ 2 distal pedal pulses/+2 dorsalis pedis b/l. Normal cap refill. No cyanosis noted to upper extremity nails and lower extremity toes nails. Course Course Course Narrative: 16pm - 26-year-old female presenting to the ER with complaints of bilateral thigh/leg pain since Monday after she did a spin class for 30 minutes. She reports that she did at her own pace and she sat down most of the time while doing the exercising. She reports that she also stretch before and after. She denies any falls. Although since the spin class she has been having bilateral thigh pain worse with walking where this morning she felt like she could not even bend her knees. She denies any other symptoms complaints concerns or injuries at this time. On exam she is having trouble bending her knees or lifting her legs from the bed or even ambulating although she does attempt. Otherwise no other neuro deficits noted. Labs were obtained while the patient was in the waiting room and patient has an elevated white blood cell count [id number]. Otherwise all other labs are within normal limits. Therefore at this time I added a CPK. Will provide symptomatic treatment and re-evaluate. Reevaluation(s) Reevaluation #1: - patient CPK returned at this time at 10,436 therefore 3 L of IV fluids will be started patient will be admitted for rhabdomyolysis. Patient understands agrees with this plan. Time: 16:47 MDM - Extremity (Nontraumatic) Medical Records Attestation: I reviewed the patient's medical records. Lab Data Attestation: I reviewed the patient's lab results. Result diagrams: 12/10/21 14:40 12/10/21 14:40 Labs: Lab Results 12/10/21 12/10/21 Range/Units 14:40 14:40 WBC 11.8 H (4.8-10.8) X10*3/uL RBC 4.81 (4.20-5.50) X10*6/uL Hgb 13.2 (12.0-16.0) g/dl Hct 41.0 (37.0-47.0) % MCV 85.2 (80.0-98.0) fL MCH 27.4 (27.0-33.0) pg MCHC 32.2 (31.0-35.0) g/dl RDW 13.4 (11.0-16.0) % Plt Count 322 (160-400) X10*3/uL MPV 9.9 (9.4-12.3) fL Immature Gran % (Auto) 0.6 H (0.0-0.4) % Neut % (Auto) 64.6 (45-73) % Lymph % (Auto) 20.2 (20-40) % [place] % (Auto) 9.8 (2-11) % Eos % (Auto) 4.2 H (0-4) % Baso % (Auto) 0.6 (0-2) % Lymph # (Auto) 2.4 (1.2-4.9) X10*3/uL [place] # (Auto) 1.2 (0.1-1.2) X10*3/uL Eos # (Auto) 0.5 H (0.0-0.4) X10*3/uL Baso # (Auto) 0.1 (0.0-0.2) X10*3/uL Abs Immat Gran (auto) 0.07 H (0.00-0.03) X10*3/uL Absolute Neuts (auto) 7.6 (2.0-8.3) x10*3/uL Absolute Nucleated RBC 0.000 (0.0-0.012) X10*3/uL Nucleated RBC % (auto) 0.0 (0.0-0.2) /100WBC Sodium 140 (135-145) mmol/L Potassium 4.4 (3.3-5.1) mmol/L Chloride 105 (96-108) mmol/L Carbon Dioxide 26 (22-29) mmol/L Anion Gap 13 (12-20) BUN 13 (9-16) mg/dL Creatinine 0.76 (0.5-1.4) mg/dL Estim Creat Clear Calc 111.7 Estimated GFR > 60 Random Glucose 97 (60-115) mg/dL Calcium 9.3 (8.4-10.2) mg/dL Total Creatine Kinase 46829 H (26-140) U/L Critical Care Time Critical Care Time Critical Care Time: Yes Total Critical Care Time: 60 Attestation: I personally attest to this time spent taking care of the patient Discharge Plan Discharge Clinical Impression: Rhabdomyolysis Patient Disposition: Admitted As Inpatient
[2021-12-10] MEDS: oxyCODONE HCl Immed Release 5 MG TABLET PO (16:15)
[2021-12-10] MEDS: diazePAM 2 MG TABLET PO (16:15)
--- NOTE | 2021-12-10 17:22 | PHA.MEDREC ---
Pharmacy Consult ? Medication Reconciliation Pharmacy has completed the medication reconciliation.
[2021-12-10] MEDS: 0.9 % Sodium Chloride 1,000 ML 999 ML IVCONT ×2 (17:59→19:00)
--- NOTE | 2021-12-10 19:05 | PM.IMHP ---
History of Present Illness Date of Service: 12/10/21 Chief Complaint: Leg cramps This is a 26-year-old female with no significant past medical history who presents to the hospital with a g. Patient reports that on Monday she went on a spinning class for exercise. This was her 1st time. She exercised for 30 minutes of which 10 minutes were high intensity. She reports that she felt sore the next day but did not think much of it, she took a muscle relaxant and felt slightly better. Today she woke up and she could not even move out of bed her legs worst very stiff, she was not able to bend her knees due to the stiffness of her muscles, she had difficulty with walking. She also developed significant 8/10 pain in the muscles of her legs. She denies any chest pain, no abdominal pain nausea or vomiting, no diarrhea constipation, no urinary symptoms and extremity edema. No numbness tingling, no headache or change in vision. On arrival to the ED hemodynamically stable with no significant abnormal vitals Labs are significant for WBC count of 11.8, CPK of 10,436 Patient started on IV fluids and will be admitted for further management Review of Systems Review of Systems: Yes all other systems are reviewed and are negative [facility]LY [facility] Medical History Kidney stones Family History Mother Diabetes HTN (hypertension) Paternal Grandfather HTN (hypertension) Paternal Grandmother HTN (hypertension) Maternal Grandfather HTN (hypertension) Maternal Grandfather HTN (hypertension) Diabetes Maternal Grandmother HTN (hypertension) Surgical History History of esophagogastroduodenoscopy (EGD) Hx of cholecystectomy Social History Alcohol intake: never Patient Tobacco Use Status: Never used Tobacco Advance Directives: No Advance Directives Information Provided: No service: No Current occupational status: employed 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, 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 Allergies Allergy/AdvReac Type Severity Reaction Status Date / Time terbinafine [TERBINAFINE] Allergy Severe ANAPHYLAXIS Verified 12/10/21 13:49 sulfamethoxazole Allergy Angioedema Verified 12/10/21 13:49 [From Bactrim] trimethoprim [From Bactrim] Allergy Angioedema Verified 12/10/21 13:49 Active Medications: Current Medications Acetaminophen (Acetaminophen 325 Mg Tablet) 650 mg PO Q6H PRN PRN Reason: Pain, Mild (Pain Scale 1-3) Enoxaparin Sodium (Enoxaparin Sodium 40 Mg/0.4 Ml Syringe) 40 mg SUBCUT Q24H [facility] Lactated Ringer's (Lr) 1,000 mls @ 125 mls/hr IVCONT .Q8H [facility] Ondansetron HCl (Ondansetron Hcl 4 Mg/2 Ml Vial) 4 mg IVPUSH Q8H PRN PRN Reason: Nausea and Vomiting Pharmacy Consult (Consult Rx Perform Med Rec) 1 each MISCELLANE ONCE PRN PRN Reason: Consult order Sodium Chloride (0.9 % Sodium Chloride Flush 3 Ml Syringe) 3 ml IVFLUSH QSHIFT [facility] Home Medications Medication Instructions Recorded Confirmed Last Taken Type vitamin with calcium 1 tab PO DAILY 12/10/21 12/10/21 12/10/21 History no.72-iron 27 mg-folic acid 1 mg tablet ( Vitamins Plus Low Iron) Physical Exam Vital Signs and Narrative: Vital Signs: Last Vital Signs Temp 97.9 F 12/10/21 13:45 Pulse 75 12/10/21 13:45 Resp 18 12/10/21 13:45 BP 144/92 H 12/10/21 13:45 Pulse Ox 99 12/10/21 13:45 O2 Del Method 12/10/21 13:45 BMI result Body Mass Index 32.7 Const: General: cooperative and no acute distress Orientation/consciousness: patient oriented x3 Eyes: General: appearance normal, both eyes and all related structures Pupils: Equal, round and reactive pupils present Resp: Effort & Inspection: normal respiratory effort Auscultation: clear to auscultation bilaterally Cardio: Rate: regular rate Rhythm: regular rhythm GI: Palpation (GI): Soft to palpation Auscultation: normal bowel sounds Skin: General skin exam: no rashes or lesions noted Neuro: General: patient oriented x3 Cranial nerves: Yes Equal, round and reactive pupils present Cognition (Neuro): normal cognition Extrem: Other: Tender and muscle exam is General: Yes normal to inspection and Yes no pedal edema Results Labs CBC and Chem 7: 12/10/21 14:40 12/10/21 14:40 Labs: Laboratory Results - last 24 hr 12/10/21 12/10/21 14:40 14:40 MCV 85.2 MCH 27.4 MCHC 32.2 RDW 13.4 Plt Count 322 MPV 9.9 Immature Gran % (Auto) 0.6 H Neut % (Auto) 64.6 Lymph % (Auto) 20.2 [place] % (Auto) 9.8 Eos % (Auto) 4.2 H Baso % (Auto) 0.6 Lymph # (Auto) 2.4 [place] # (Auto) 1.2 Eos # (Auto) 0.5 H Baso # (Auto) 0.1 Abs Immat Gran (auto) 0.07 H Absolute Neuts (auto) 7.6 Absolute Nucleated RBC 0.000 Nucleated RBC % (auto) 0.0 Anion Gap 13 Estim Creat Clear Calc 111.7 Estimated GFR > 60 Random Glucose 97 Calcium 9.3 Total Creatine Kinase 37634 H Assessment and Plan (1) Rhabdomyolysis: Status: Acute Plan 26-year-old female with no significant past medical history presents to the hospital with complaints of leg cramps found to have rhabdomyolysis after spinning class # rhabdomyolysis -secondary to intensive exercise - IV fluids - no RENETTA this time - follow BMP and CPK DVT prophylaxis: Lovenox Quality Stroke Does the patient have a stroke diagnosis?: No VTE Prior VTE?: No VTE Risk Level:: Medical - moderate - high VTE Device Contraindication: Treatment Not Indicated VTE Drug Contraindication: N/A - Med Ordered
[2021-12-10 19:29] LABS: COVID-19 Test Negative (Negative)
[2021-12-10] MEDS: Lactated Ringers 1,000 ML 125 ML IVCONT (22:29)
[2021-12-10 22:34] VITALS: BP 134/90; PULSE 74; RESP 17; TEMP 36.1; O2SAT 100
[2021-12-10] MEDS: Enoxaparin Sodium 40 MG/0.4 ML SYRINGE SUBCUT (22:52)
[2021-12-10] MEDS: Acetaminophen 325 MG TABLET 650 MG PO (22:53)
[2021-12-10] MEDS: Morphine Sulfate 4 MG/ML CARTRIDGE IVPUSH (23:18)
--- NOTE | 2021-12-11 01:53 | PC.NURSE ---
Came from the ED around 2229 with c/o 8/10 bilat leg pain, claimed that the Oxycodone that was given in the ED had no relief at all, Dr. Ayala was made aware, Morphine 4 mg IV given, was able to sleep after.
[2021-12-11 03:58] VITALS: BP 132/84; PULSE 73; RESP 18; TEMP 35.8; O2SAT 96
[2021-12-11] MEDS: Lactated Ringers 1,000 ML 125 ML IVCONT (05:32)
[2021-12-11 06:25] LABS: MANUAL DIFF FLAG NO
[2021-12-11 06:39] LABS: Basophils Absolute Auto 0.1 X10*3/uL (0.0-0.2); Basophils Percent Auto 0.5 % (0-2); Eosinophils Absolute Auto 0.5 X10*3/uL (0.0-0.4); Eosinophils Percent Auto 4.7 % (0-4); Hematocrit 36.6 % (37.0-47.0); Hemoglobin 11.6 g/dl (12.0-16.0); Imm Gran Abs Auto 0.05 X10*3/uL (0.00-0.03); Imm Gran Pct Auto 0.5 % (0.0-0.4); Lymphocytes Absolute Auto 2.9 X10*3/uL (1.2-4.9); Lymphocytes Percent Auto 28.4 % (20-40); Mean Corpuscular HGB Conc 31.7 g/dl (31.0-35.0); Mean Corpuscular Hemoglobin 27.2 pg (27.0-33.0); Mean Corpuscular Volume 85.7 fL (80.0-98.0); Mean Platelet Volume 10.2 fL (9.4-12.3); Monocytes Absolute Auto 0.8 X10*3/uL (0.1-1.2); Neutrophils Absolute Auto 5.9 x10*3/uL (2.0-8.3); Neutrophils Percent Auto 57.9 % (45-73); Platelet Count 256 X10*3/uL (160-400); Red Blood Count 4.27 X10*6/uL (4.20-5.50); Red Cell Distribution Width 13.7 % (11.0-16.0); White Blood Count 10.3 X10*3/uL (4.8-10.8)
[2021-12-11 07:03] LABS: Anion Gap 9 (12-20); Blood Urea Nitrogen 8 mg/dL (9-16); Carbon Dioxide 25 mmol/L (22-29); Chloride 106 mmol/L (96-108); Creatinine Clr Calc Pharmacy 139.1; Estimated Glomerular Filt Rate > 60; Glucose Random 86 mg/dL (60-115); Potassium 4.2 mmol/L (3.3-5.1); Sodium 136 mmol/L (135-145)
[2021-12-11 07:16] LABS: Calcium 8.2 mg/dL (8.4-10.2)
[2021-12-11 08:00] VITALS: BP 122/73; PULSE 75; RESP 16; TEMP 36.5; O2SAT 99
[2021-12-11] MEDS: Acetaminophen 325 MG TABLET 650 MG PO ×2 (08:13→14:13)
[2021-12-11] MEDS: Multivitamin TABLET 1 TAB PO (08:13)
[2021-12-11] MEDS: 0.9 % Sodium Chloride 1,000 ML 125 ML IVCONT (08:13)
[2021-12-11 10:09] LABS: Amphetamine Screen Urine Not Detected (Not Detect); Barbiturates, Urine Not Detected (Not Detect); Benzodiazepines Screen Urine Not Detected (Not Detect); Cannabinoid Screen Urine Not Detected (Not Detect); Cocaine Screen Urine Not Detected (Not Detect); Fentanyl, urine Not Detected (Not Detect); Opiate Screen Urine POSITIVE (Not Detect); Phencyclidine Screen Urine Not Detected (Not Detect)
--- NOTE | 2021-12-11 10:18 | HO.PM.IMPN ---
Subjective Subjective Date of Service: 12/11/21 Interval History: Muscle soreness No hematuria or dark urine Review of Systems Review of Systems: Yes all other systems are reviewed and are negative Physical Exam Vital Signs: Vital Signs: Last Vital Signs Temp 97.7 F 12/11/21 08:00 Pulse 75 12/11/21 08:00 Resp 16 12/11/21 08:00 BP 122/73 12/11/21 08:00 Pulse Ox 99 12/11/21 08:00 O2 Del Method 12/11/21 08:00 BMI result Body Mass Index 32.7 Gen: in no acute distress HEENT: sclera anicteric, moist mucus membranes Neck: supple Lungs: clear to auscultation bilaterally Heart: regular rate and rhythm, no murmurs Abd: soft, non-tender, non-distended Ext: no edema Skin: warm/well-perfused Neuro: alert and oriented x3, no focal findings Psych: appropriate affect Objective Data Active Medications Acetaminophen (Acetaminophen 325 Mg Tablet) 650 mg PO Q6H PRN PRN Reason: Pain, Mild (Pain Scale 1-3) Last Admin: 12/11/21 08:13 Dose: 650 mg Documented By: MOE Enoxaparin Sodium (Enoxaparin Sodium 40 Mg/0.4 Ml Syringe) 40 mg SUBCUT Q24H [facility] Last Admin: 12/10/21 22:52 Dose: 40 mg Documented By: SAMUEL Sodium Chloride (Ns) 1,000 mls @ 125 mls/hr IVCONT .Q8H [facility] Last Admin: 12/11/21 08:13 Dose: 125 mls/hr Documented By: MOE Morphine Sulfate (Morphine Sulfate 4 Mg/Ml Cartridge) 4 mg IVPUSH Q4H PRN; Protocol PRN Reason: Pain, Severe (Pain Scale 7-10) Last Admin: 12/10/21 23:18 Dose: 4 mg Documented By: SAMUEL Multivitamins/Vitamin C (Multivitamin Tablet) 1 tab PO DAILY [facility] Last Admin: 12/11/21 08:13 Dose: 1 tab Documented By: MOE Ondansetron HCl (Ondansetron Hcl 4 Mg/2 Ml Vial) 4 mg IVPUSH Q8H PRN PRN Reason: Nausea and Vomiting Pharmacy Consult (Consult Rx Perform Med Rec) 1 each MISCELLANE ONCE PRN PRN Reason: Consult order Sodium Chloride (0.9 % Sodium Chloride Flush 3 Ml Syringe) 3 ml IVFLUSH QSHIFT [facility] Last Admin: 12/11/21 07:33 Dose: Not Given Documented By: POWER Non-Admin Reason: IV Running Labs CBC & Chem 7: 12/11/21 05:37 12/11/21 05:37 Labs: Laboratory Results - last 24 hr 12/10/21 12/10/21 12/10/21 14:40 14:40 19:04 MCV 85.2 MCH 27.4 MCHC 32.2 RDW 13.4 Plt Count 322 MPV 9.9 Immature Gran % (Auto) 0.6 H Neut % (Auto) 64.6 Lymph % (Auto) 20.2 [place] % (Auto) 9.8 Eos % (Auto) 4.2 H Baso % (Auto) 0.6 Lymph # (Auto) 2.4 [place] # (Auto) 1.2 Eos # (Auto) 0.5 H Baso # (Auto) 0.1 Abs Immat Gran (auto) 0.07 H Absolute Neuts (auto) 7.6 Absolute Nucleated RBC 0.000 Nucleated RBC % (auto) 0.0 Anion Gap 13 Estim Creat Clear Calc 111.7 Estimated GFR > 60 Random Glucose 97 Calcium 9.3 Total Creatine Kinase 16282 H Urine Opiates Screen Urine Fentanyl Screen Ur Barbiturates Screen Ur Phencyclidine Scrn Ur Amphetamines Screen U Benzodiazepines Scrn Urine Cocaine Screen U Marijuana (THC) Screen COVID-19 ([facility]) Negative COVID-19 Clin Com See Note 12/11/21 12/11/21 12/11/21 05:37 05:37 Unknown MCV 85.7 MCH 27.2 MCHC 31.7 RDW 13.7 Plt Count 256 MPV 10.2 Immature Gran % (Auto) 0.5 H Neut % (Auto) 57.9 Lymph % (Auto) 28.4 [place] % (Auto) 8.0 Eos % (Auto) 4.7 H Baso % (Auto) 0.5 Lymph # (Auto) 2.9 [place] # (Auto) 0.8 Eos # (Auto) 0.5 H Baso # (Auto) 0.1 Abs Immat Gran (auto) 0.05 H Absolute Neuts (auto) 5.9 Absolute Nucleated RBC 0.000 Nucleated RBC % (auto) 0.0 Anion Gap 9 L Estim Creat Clear Calc 139.1 Estimated GFR > 60 Random Glucose 86 Calcium 8.2 L D Total Creatine Kinase 76207 H Urine Opiates Screen POSITIVE H Urine Fentanyl Screen Not Detected Ur Barbiturates Screen Not Detected Ur Phencyclidine Scrn Not Detected Ur Amphetamines Screen Not Detected U Benzodiazepines Scrn Not Detected Urine Cocaine Screen Not Detected U Marijuana (THC) Screen Not Detected COVID-19 ([facility]) COVID-19 Clin Com Assessment and Plan (1) Rhabdomyolysis: Status: Acute Plan hospital d#2 26yo F admitted for exercise-induced rhabdomyolysis # rhabdomyolysis - increase NS fluid rate, trend CPK, monitor SCr # VTE ppx: early ambulation, SCDs In my clinical judgment, the patient requires continued hospitalization for the following reasons: IV fluids Quality Stroke Does the patient have a stroke diagnosis?: No VTE Prior VTE?: No VTE Risk Level:: Medical - moderate - high VTE Device Contraindication: Treatment Not Indicated VTE Drug Contraindication: N/A - Med Ordered
[2021-12-11 12:00] VITALS: BP 112/68; PULSE 78; RESP 16; TEMP 36.6; O2SAT 99
[2021-12-11] MEDS: 0.9 % Sodium Chloride 1,000 ML 200 ML IVCONT ×2 (13:59→19:36)
--- NOTE | 2021-12-11 15:08 | MHC.CM.PN ---
PT REPORTS SHE LIVES AT HOME WITH FAMILY, IS INDEPENDENT, AND WORKS SHE DENIES USE OF DME OR SERVICES PT REPORTS SHE IS COVID-19 VACCINATED PCP: MAGY MANUEL OBSERVATION NOTICE DELIVERED CURRENT DC PLAN IS HOME WITH NO SERVICES FAMILY TO TRANSPORT
[2021-12-11 15:15] VITALS: BP 141/90; PULSE 85; RESP 18; TEMP 36.2; O2SAT 95
[2021-12-11 19:36] VITALS: BP 130/86; PULSE 79; RESP 18; TEMP 36.2; O2SAT 99
[2021-12-11] MEDS: Morphine Sulfate 4 MG/ML CARTRIDGE IVPUSH (23:38)
[2021-12-11 23:42] VITALS: BP 124/68; PULSE 87; RESP 18; TEMP 36.1; O2SAT 100
[2021-12-12] MEDS: 0.9 % Sodium Chloride 1,000 ML 200 ML IVCONT ×5 (00:11→20:15)
[2021-12-12 03:50] VITALS: BP 110/59; PULSE 85; RESP 18; TEMP 36.2; O2SAT 100
[2021-12-12 07:26] LABS: Anion Gap 11 (12-20); Blood Urea Nitrogen 10 mg/dL (9-16); Calcium 8.4 mg/dL (8.4-10.2); Carbon Dioxide 21 mmol/L (22-29); Chloride 109 mmol/L (96-108); Creatinine Clr Calc Pharmacy 136.9; Estimated Glomerular Filt Rate > 60; Glucose Random 85 mg/dL (60-115); Potassium 4.7 mmol/L (3.3-5.1); Sodium 136 mmol/L (135-145)
[2021-12-12 07:43] VITALS: BP 106/59; PULSE 90; RESP 18; TEMP 36.2; O2SAT 98
[2021-12-12] MEDS: Acetaminophen 325 MG TABLET 650 MG PO ×2 (09:36→18:37)
[2021-12-12] MEDS: Multivitamin TABLET 1 TAB PO (09:36)
[2021-12-12] MEDS: ondansetron HCL 4 MG/2 ML VIAL IVPUSH ×2 (09:36→18:37)
--- NOTE | 2021-12-12 10:24 | P.PNIM_ITS ---
Subjective Subjective Date of Service: 12/12/21 Interval History: Muscle aches improved Review of Systems Review of Systems: Yes all other systems are reviewed and are negative Physical Exam Vital Signs: Vital Signs: Last Vital Signs Temp 97.2 F 12/12/21 07:43 Pulse 90 12/12/21 07:43 Resp 18 12/12/21 07:43 BP 106/59 L 12/12/21 07:43 Pulse Ox 98 12/12/21 07:43 O2 Del Method 12/12/21 07:43 BMI result Body Mass Index 32.7 Gen: in no acute distress HEENT: sclera anicteric, moist mucus membranes Neck: supple Lungs: clear to auscultation bilaterally Heart: regular rate and rhythm, no murmurs Abd: soft, non-tender, non-distended Ext: no edema Skin: warm/well-perfused Neuro: alert and oriented x3, no focal findings Psych: appropriate affect Objective Data Active Medications Acetaminophen (Acetaminophen 325 Mg Tablet) 650 mg PO Q6H PRN PRN Reason: Pain, Mild (Pain Scale 1-3) Last Admin: 12/12/21 09:36 Dose: 650 mg Documented By: MOE Sodium Chloride (Ns) 1,000 mls @ 200 mls/hr IVCONT .Q5H [facility] Last Admin: 12/12/21 09:36 Dose: 200 mls/hr Documented By: MOE Morphine Sulfate (Morphine Sulfate 4 Mg/Ml Cartridge) 4 mg IVPUSH Q4H PRN; Protocol PRN Reason: Pain, Severe (Pain Scale 7-10) Last Admin: 12/11/21 23:38 Dose: 4 mg Documented By: SAMUEL Multivitamins/Vitamin C (Multivitamin Tablet) 1 tab PO DAILY [facility] Last Admin: 12/12/21 09:36 Dose: 1 tab Documented By: MOE Ondansetron HCl (Ondansetron Hcl 4 Mg/2 Ml Vial) 4 mg IVPUSH Q8H PRN PRN Reason: Nausea and Vomiting Last Admin: 12/12/21 09:36 Dose: 4 mg Documented By: MOE Pharmacy Consult (Consult Rx Perform Med Rec) 1 each MISCELLANE ONCE PRN PRN Reason: Consult order Sodium Chloride (0.9 % Sodium Chloride Flush 3 Ml Syringe) 3 ml IVFLUSH QSHIFT [facility] Last Admin: 12/12/21 06:58 Dose: Not Given Documented By: POWER Non-Admin Reason: IV Running Labs CBC & Chem 7: 12/11/21 05:37 12/12/21 06:45 Labs: Laboratory Results - last 24 hr 12/12/21 06:45 Anion Gap 11 L Estim Creat Clear Calc 136.9 Estimated GFR > 60 Random Glucose 85 Calcium 8.4 Total Creatine Kinase 58446 H Assessment and Plan (1) Rhabdomyolysis: Status: Acute Plan hospital d#3 26yo F admitted for exercise-induced rhabdomyolysis # rhabdomyolysis - continue IV NS, trend CPK which has yet to peak, monitor SCr # VTE ppx: early ambulation, SCDs In my clinical judgment, the patient requires continued hospitalization for the following reasons: IV fluids Quality Stroke Does the patient have a stroke diagnosis?: No VTE Prior VTE?: No VTE Risk Level:: Medical - moderate - high VTE Device Contraindication: Treatment Not Indicated VTE Drug Contraindication: N/A - Med Ordered
[2021-12-12 12:00] VITALS: BP 110/64; PULSE 55; RESP 18; TEMP 36.3; O2SAT 99
[2021-12-12 15:08] VITALS: BP 135/92; PULSE 75; RESP 18; TEMP 36.1; O2SAT 99
[2021-12-12 19:14] VITALS: BP 125/80; PULSE 79; RESP 18; TEMP 36.6; O2SAT 100
[2021-12-12 23:48] VITALS: BP 130/69; PULSE 85; RESP 18; TEMP 36.4; O2SAT 92
[2021-12-13] MEDS: 0.9 % Sodium Chloride 1,000 ML 200 ML IVCONT ×5 (00:15→21:11)
[2021-12-13 03:55] VITALS: BP 123/77; PULSE 78; RESP 18; TEMP 36.2; O2SAT 92
[2021-12-13 06:51] LABS: HCG Quantitative < 2 mIU/mL
[2021-12-13 07:09] LABS: Anion Gap 10 (12-20); Blood Urea Nitrogen 7 mg/dL (9-16); Calcium 8.5 mg/dL (8.4-10.2); Carbon Dioxide 25 mmol/L (22-29); Chloride 107 mmol/L (96-108); Creatinine Clr Calc Pharmacy 124.8; Estimated Glomerular Filt Rate > 60; Glucose Random 98 mg/dL (60-115); Potassium 4.4 mmol/L (3.3-5.1); Sodium 138 mmol/L (135-145)
[2021-12-13 08:00] VITALS: BP 122/71; PULSE 78; RESP 17; TEMP 36.3; O2SAT 97
[2021-12-13] MEDS: Multivitamin TABLET 1 TAB PO (10:52)
[2021-12-13] MEDS: Acetaminophen 325 MG TABLET 650 MG PO ×2 (10:52→22:21)
[2021-12-13 11:07] VITALS: BP 121/73; PULSE 79; RESP 18; TEMP 36.3; O2SAT 98
--- NOTE | 2021-12-13 13:21 | P.PNIM_ITS ---
Subjective Subjective Date of Service: 12/13/21 Interval History: muscle soreness improved Review of Systems Review of Systems: Yes all other systems are reviewed and are negative Physical Exam Vital Signs: Vital Signs: Last Vital Signs Temp 97.3 F 12/13/21 11:07 Pulse 79 12/13/21 11:07 Resp 18 12/13/21 11:07 BP 121/73 12/13/21 11:07 Pulse Ox 98 12/13/21 11:07 O2 Del Method 12/13/21 11:07 BMI result Body Mass Index 32.7 Gen: in no acute distress HEENT: sclera anicteric, moist mucus membranes Neck: supple Lungs: clear to auscultation bilaterally Heart: regular rate and rhythm, no murmurs Abd: soft, non-tender, non-distended Ext: no edema Skin: warm/well-perfused Neuro: alert and oriented x3, no focal findings Psych: appropriate affect Objective Data Active Medications Acetaminophen (Acetaminophen 325 Mg Tablet) 650 mg PO Q6H PRN PRN Reason: Pain, Mild (Pain Scale 1-3) Last Admin: 12/13/21 10:52 Dose: 650 mg Documented By: ALICIA Sodium Chloride (Ns) 1,000 mls @ 200 mls/hr IVCONT .Q5H [facility] Last Admin: 12/13/21 10:48 Dose: 200 mls/hr Documented By: ALICIA Morphine Sulfate (Morphine Sulfate 4 Mg/Ml Cartridge) 4 mg IVPUSH Q4H PRN; Protocol PRN Reason: Pain, Severe (Pain Scale 7-10) Last Admin: 12/11/21 23:38 Dose: 4 mg Documented By: SAMUEL Multivitamins/Vitamin C (Multivitamin Tablet) 1 tab PO DAILY [facility] Last Admin: 12/13/21 10:52 Dose: 1 tab Documented By: ALICIA Ondansetron HCl (Ondansetron Hcl 4 Mg/2 Ml Vial) 4 mg IVPUSH Q8H PRN PRN Reason: Nausea and Vomiting Last Admin: 12/12/21 18:37 Dose: 4 mg Documented By: MOE Pharmacy Consult (Consult Rx Perform Med Rec) 1 each MISCELLANE ONCE PRN PRN Reason: Consult order Sodium Chloride (0.9 % Sodium Chloride Flush 3 Ml Syringe) 3 ml IVFLUSH QSHIFT [facility] Last Admin: 12/13/21 10:48 Dose: Not Given Documented By: ALICIA Non-Admin Reason: IV Running Labs CBC & Chem 7: 12/11/21 05:37 12/13/21 05:52 Labs: Laboratory Results - last 24 hr 12/13/21 05:52 Anion Gap 10 L Estim Creat Clear Calc 124.8 Estimated GFR > 60 Random Glucose 98 Calcium 8.5 Total Creatine Kinase 74692 H Beta HCG, Quant < 2 Assessment and Plan (1) Rhabdomyolysis: Status: Acute [facility] hospital d#4 26yo F admitted for exercise-induced rhabdomyolysis # rhabdomyolysis - continue IV NS, trend CPK which has hopefully peaked and is starting to come down, monitor SCr # VTE ppx: early ambulation, SCDs In my clinical judgment, the patient requires continued hospitalization for the following reasons: IV fluids Quality Stroke Does the patient have a stroke diagnosis?: No VTE Prior VTE?: No VTE Risk Level:: Medical - moderate - high VTE Device Contraindication: Treatment Not Indicated VTE Drug Contraindication: N/A - Med Ordered
[2021-12-13 16:00] VITALS: BP 123/71; PULSE 83; RESP 18; TEMP 36.6; O2SAT 99
[2021-12-13 20:00] VITALS: BP 122/69; PULSE 70; RESP 18; TEMP 36.5; O2SAT 100
[2021-12-13 23:59] VITALS: BP 126/70; PULSE 90; RESP 18; TEMP 36.6; O2SAT 97
[2021-12-14] MEDS: 0.9 % Sodium Chloride 1,000 ML 200 ML IVCONT ×5 (02:03→23:28)
[2021-12-14 03:37] VITALS: BP 121/68; PULSE 83; RESP 18; TEMP 36; O2SAT 94
[2021-12-14 07:09] LABS: Anion Gap 10 (12-20); Blood Urea Nitrogen 8 mg/dL (9-16); Calcium 8.3 mg/dL (8.4-10.2); Carbon Dioxide 24 mmol/L (22-29); Chloride 108 mmol/L (96-108); Creatinine Clr Calc Pharmacy 134.7; Estimated Glomerular Filt Rate > 60; Glucose Random 97 mg/dL (60-115); Potassium 4.2 mmol/L (3.3-5.1); Sodium 138 mmol/L (135-145)
[2021-12-14 07:27] VITALS: BP 111/71; PULSE 84; RESP 18; TEMP 36.2; O2SAT 97
[2021-12-14] MEDS: Multivitamin TABLET 1 TAB PO (09:07)
--- NOTE | 2021-12-14 09:26 | P.CDIC_ITS ---
CDI Concurrent Query Documentation Clarification: PHYSICIAN'S DOCUMENTATION REQUEST Date of Query: 12/14/21 0926 Patient Name: Cande Hernandez Admit Date: 12/11/21 Dear Doctor, A review of the medical record indicates additional documentation may be needed. Please review below and update the documentation accordingly. Clinical Indicators: Risk Factors/Clinical Indicators/Treatments Body mass index: 32.7 5' 2 in height. If possible, please provide an associated diagnosis related to the abnormal BMI, such as: For a BMI >= 30: * Overweight * Obesity * Due to excess calories * Drug induced * Due to other cause Or: * BMI is not significant * Other (please specify) * Unable to determine Use of terms such as suspected, likely, concern for, or probable (associated with a specific diagnosis that is being evaluated, monitored, or treated as if it exists) are acceptable and can be coded in the inpatient setting, when documented at the time of discharge. Thank you, Jillian Kiser [facility], CDIS Extension: [phone] Please use your independent medical judgment in providing your response. THIS QUERY IS PART OF THE PERMANENT MEDICAL RECORD Provider Response: Other Other Diagnosis: obesity
--- NOTE | 2021-12-14 10:15 | HO.PM.IMPN ---
Subjective Subjective Date of Service: 12/14/21 Interval History: muscle pain improved still on IV fluids Review of Systems Review of Systems: Yes all other systems are reviewed and are negative Physical Exam Vital Signs: Vital Signs: Last Vital Signs Temp 97.1 F 12/14/21 07:27 Pulse 84 12/14/21 07:27 Resp 18 12/14/21 07:27 BP 111/71 12/14/21 07:27 Pulse Ox 97 12/14/21 07:27 O2 Del Method 12/14/21 07:27 BMI result Body Mass Index 32.7 Gen: in no acute distress HEENT: sclera anicteric, moist mucus membranes Neck: supple Lungs: clear to auscultation bilaterally Heart: regular rate and rhythm, no murmurs Abd: soft, non-tender, non-distended, obese Ext: no edema Skin: warm/well-perfused Neuro: alert and oriented x3, no focal findings Psych: appropriate affect Objective Data Active Medications Acetaminophen (Acetaminophen 325 Mg Tablet) 650 mg PO Q6H PRN PRN Reason: Pain, Mild (Pain Scale 1-3) Last Admin: 12/13/21 22:21 Dose: 650 mg Documented By: ALICIA Sodium Chloride (Ns) 1,000 mls @ 200 mls/hr IVCONT .Q5H [facility] Last Admin: 12/14/21 06:57 Dose: 200 mls/hr Documented By: MARCOS Morphine Sulfate (Morphine Sulfate 4 Mg/Ml Cartridge) 4 mg IVPUSH Q4H PRN; Protocol PRN Reason: Pain, Severe (Pain Scale 7-10) Last Admin: 12/11/21 23:38 Dose: 4 mg Documented By: SAMUEL Multivitamins/Vitamin C (Multivitamin Tablet) 1 tab PO DAILY [facility] Last Admin: 12/14/21 09:07 Dose: 1 tab Documented By: TAY Ondansetron HCl (Ondansetron Hcl 4 Mg/2 Ml Vial) 4 mg IVPUSH Q8H PRN PRN Reason: Nausea and Vomiting Last Admin: 12/12/21 18:37 Dose: 4 mg Documented By: MOE Pharmacy Consult (Consult Rx Perform Med Rec) 1 each MISCELLANE ONCE PRN PRN Reason: Consult order Sodium Chloride (0.9 % Sodium Chloride Flush 3 Ml Syringe) 3 ml IVFLUSH QSHIFT [facility] Last Admin: 12/14/21 09:07 Dose: Not Given Documented By: TAY Non-Admin Reason: IV Running Labs CBC & Chem 7: 12/11/21 05:37 12/14/21 05:59 Labs: Laboratory Results - last 24 hr 12/14/21 05:59 Anion Gap 10 L Estim Creat Clear Calc 134.7 Estimated GFR > 60 Random Glucose 97 Calcium 8.3 L Total Creatine Kinase 6576 H D Assessment and Plan (1) Rhabdomyolysis: Status: Acute Plan hospital d#5 26yo F admitted for exercise-induced rhabdomyolysis # rhabdomyolysis - continue IV NS until CPK <5000, monitor SCr; likely d/c home tomorrow as long as CPK <5000 # obesity - diet/exercise # VTE ppx: early ambulation, SCDs In my clinical judgment, the patient requires continued hospitalization for the following reasons: IV fluids Quality Stroke Does the patient have a stroke diagnosis?: No VTE Prior VTE?: No VTE Risk Level:: Medical - moderate - high VTE Device Contraindication: Treatment Not Indicated VTE Drug Contraindication: N/A - Med Ordered
[2021-12-14 11:19] VITALS: BP 124/73; PULSE 76; RESP 18; TEMP 36.2; O2SAT 98
[2021-12-14 15:39] VITALS: BP 130/79; PULSE 80; RESP 18; TEMP 36.3; O2SAT 99
[2021-12-14 19:26] VITALS: BP 135/64; PULSE 86; RESP 18; TEMP 36.6; O2SAT 100
[2021-12-14] MEDS: Acetaminophen 325 MG TABLET 650 MG PO (23:33)
[2021-12-14 23:46] VITALS: BP 134/81; PULSE 85; RESP 17; TEMP 36.7; O2SAT 98
[2021-12-15 00:33] VITALS: RESP 18
[2021-12-15 04:00] VITALS: BP 125/72; PULSE 81; RESP 17; TEMP 36.2; O2SAT 98
[2021-12-15] MEDS: 0.9 % Sodium Chloride 1,000 ML 200 ML IVCONT ×2 (04:20→09:09)
[2021-12-15 07:33] VITALS: BP 131/81; PULSE 72; RESP 16; TEMP 36.7; O2SAT 99
[2021-12-15 07:36] LABS: Anion Gap 11 (12-20); Blood Urea Nitrogen 9 mg/dL (9-16); Calcium 8.5 mg/dL (8.4-10.2); Carbon Dioxide 23 mmol/L (22-29); Chloride 108 mmol/L (96-108); Creatinine Clr Calc Pharmacy 136.9; Estimated Glomerular Filt Rate > 60; Glucose Random 96 mg/dL (60-115); Potassium 4.4 mmol/L (3.3-5.1); Sodium 138 mmol/L (135-145)
[2021-12-15] MEDS: Multivitamin TABLET 1 TAB PO (10:07)
--- NOTE | 2021-12-15 11:31 | MHC.CM.PN ---
PATIENT IS DC HOME - SELF CARE RN AWARE OF PLAN.
--- NOTE | 2021-12-15 17:59 | PM.DS ---
DS: Providers Provider Date of Service: 12/17/21 Date of admission: 12/11/21 10:45 Primary care physician: Soniya Colon MD DS: Diagnosis Discharge Diagnosis (1) Rhabdomyolysis: Status: Acute DS: Summary Hospital Course Hospital Course: Chief Complaint: Leg cramps This is a 26-year-old female with no significant past medical history who presents to the hospital with a g.? Patient reports that on Monday she went on a spinning class for exercise.? This was her 1st time.? She exercised for 30 minutes of which 10 minutes were high intensity.? She reports that she felt sore the next day but did not think much of it, she took a muscle relaxant and felt slightly better.? Today she woke up and she could not even move out of bed her legs worst very stiff, she was not able to bend her knees due to the stiffness of her muscles, she had difficulty with walking.? She also developed significant 8/10 pain in the muscles of her legs.? She denies any chest pain, no abdominal pain nausea or vomiting, no diarrhea constipation, no urinary symptoms and extremity edema.? No numbness tingling, no headache or change in vision. On arrival to the ED hemodynamically stable with no significant abnormal vitals Labs are significant for WBC count of 11.8, CPK of 10,436 Patient started on IV fluids and will be admitted for further management 26yo F admitted for exercise-induced rhabdomyolysis patient treated with IV fluids, CPK trended down to below 3,000, renal function remains stable, patient is being discharged home and recommended to gradually increase activity drink plenty of fluids, and return to check with any worsening pain lightheadedness or dizziness. In regard to obesity recommended low-calorie diet and gradually increase activity/exercise. Time Spent with Patient Time attestation: Total time spent providing and/or coordinating discharge services: Discharge coordination time: Greater than 30 minutes Quality: Safe Use of Opioids Does Pt have an Active Cancer Diagnosis on the Problem List?: No Quality: Stroke Does the patient have a stroke diagnosis?: No Physical Exam Vital Signs: Vital Signs: Last Vital Signs Temp 98.1 F 12/15/21 07:33 Pulse 72 12/15/21 07:33 Resp 16 12/15/21 07:33 BP 131/81 12/15/21 07:33 Pulse Ox 99 12/15/21 07:33 O2 Del Method 12/15/21 07:33 BMI result Body Mass Index 32.7 Const: Other: Gen: in no acute distress HEENT: sclera anicteric, moist mucus membranes Neck: supple Lungs: clear to auscultation bilaterally Heart: regular rate and rhythm, no murmurs Abd: soft, non-tender, non-distended, obese Ext: no edema Skin: warm/well-perfused Neuro: alert and oriented x3, no focal findings Psych: appropriate affect ? DS: Data Data Completed and Pending Labs on day of discharge: Laboratory Results - last 24 hr 12/15/21 06:14 Sodium 138 Potassium 4.4 Chloride 108 Carbon Dioxide 23 Anion Gap 11 L BUN 9 Creatinine 0.62 Estim Creat Clear Calc 136.9 Estimated GFR > 60 Random Glucose 96 Calcium 8.5 Total Creatine Kinase 2606 H D Discharge Plan Discharge Patient Disposition: Home, Self-Care Discharge Diagnosis: rhabdomyolysis Referrals: Soniya Colon MD [Primary Care Provider] - 3 days Discharge Medications: Continued Vitamin Plus Low Iron 27 mg iron- 1 mg tablet 1 tab PO DAILY Discharge Orders: Discharge Order (Routine); Ordered 12/15/21 Ordered By: Mich Contreras Diet: Advance to usual diet Activity on Discharge: As tolerated Stand Alone Forms: Patient Portal Discharge page, Work/School Release Care Plan Goals: Rest drink plenty of fluids Health Concerns: Gradually advance activity Plan of Treatment: follow up with pcp Assessment: As per discharge summary Patient Instructions: Muscle Strain (ED), Exercise Safety (ED) Discharge Date/Time: 12/15/21 13:52
== END 2021-12-15 13:52 | disposition home or self-care (01) | DRG 351 ==
LOC: HO.ED 17:18 → HO.EDOVER 19:09 → HO.S3 21:16
PROVIDERS: Family Medicine; Physician Assistant Medical; Admitting Provider Internal Medicine; Emergency Provider Emergency Medicine; PCP General Practice; Visit Provider Hospitalist
DX: M62.82 Rhabdomyolysis (principal); E66.9 Obesity, unspecified; Z20.822 Contact with and (suspected) exposure to COVID-19; Z68.32 Body mass index [BMI] 32.0-32.9, adult; Z87.442 Personal history of urinary calculi; Z88.2 Allergy status to sulfonamides; Z88.8 Allergy status to other drugs, medicaments and biological substances
CPT/HCPCS: 36415; 80048; 80307; 82550; 84702; 85025; 87635; 96360; 99285; J1650; J2270; J2405

== ENCOUNTER 2022-01-03 12:30 | Emergency (ER) | payer OTHER, SELFPAY | END 2022-01-03 14:18 | disposition left against medical advice (07) | PROVIDERS: Emergency Provider Emergency Medicine; PCP General Practice | DX: N93.9 Abnormal uterine and vaginal bleeding, unspecified (principal) ==

== ENCOUNTER 2022-01-07 14:33 | Outpatient (REF) | payer OTHER, SELFPAY ==
--- NOTE | ~2022-01-07 | US_ITS ---
EXAMINATION: US PELVIS CLINICAL INFORMATION: Abnormal vaginal bleeding COMPARISON: Previous pelvic ultrasound July [address] of the abdomen and pelvis October 2021 TECHNIQUE: Ultrasound of the pelvis is performed using both transabdominal and transvaginal transducers along with Doppler. Transvaginal imaging is performed due to inadequate visualization transabdominally. FINDINGS: The uterus is anteverted and measures 7.5 x 3.6 x 4.2 cm in dimension. No focal uterine lesion is seen. Endometrial thickness is normal measuring 0.9 cm. There are nabothian cysts in the cervix. Right ovary is normal-appearing and measures 2.8 x 1.7 x 2.2 cm. The left ovary measures 3.2 x 2.2 x 2 cm. There are bilateral simple appearing small cysts or follicles seen in both ovaries. There is a 1 cm left adnexal or paraovarian simple cyst. There is no fluid in the pelvis. US/US pelvic and transvaginal IMPRESSION: Normal thickness endometrium. 1 cm simple left adnexal or paraovarian cyst.
== END 2022-01-07 14:34 | disposition home or self-care (01) ==
LOC: HO.US 14:33
PROVIDERS: Visit Provider Advanced Practice Midwife
DX: N93.9 Abnormal uterine and vaginal bleeding, unspecified (principal)
CPT/HCPCS: 76830; 76856

== ENCOUNTER 2022-01-25 07:22 | Outpatient (REF) | payer OTHER, SELFPAY ==
--- NOTE | ~2022-01-25 | CT_ITS ---
EXAMINATION: CT ABDOMEN AND PELVIS WITH CONTRAST CLINICAL INFORMATION: Left lower quadrant pain COMPARISON: Previous CT October 2021 TECHNIQUE: Multidetector volumetric images were obtained from the superior aspect of the liver through the pubic symphysis following administration 85 mL of Omnipaque 350 intravenous contrast. Sagittal and coronal reformatted images were obtained on the technologist's workstation. Oral contrast: Yes This CT examination was performed using dose optimization techniques as appropriate, variously including the following: *Automated exposure control *Adjustment of mA and/or kV according to patient size (this includes techniques or standardized protocols for targeted exams where dose is matched to indication/reason for exam; i.e. extremities or head) *Use of iterative reconstruction technique DLP: 430 mGy-cm FINDINGS: LUNG BASES: The visualized lung bases are unremarkable. LIVER, GALLBLADDER, AND BILIARY TREE: The liver is low in attenuation suggestive of fatty infiltration. No focal liver lesion or biliary duct dilatation. Postcholecystectomy. PANCREAS: Unremarkable. SPLEEN: Unremarkable. ADRENAL GLANDS: Unremarkable. KIDNEYS AND URETERS: There is a small nonobstructing 3 mm stone lower pole of the right kidney. The kidneys are otherwise unremarkable. BLADDER: Unremarkable. GASTROINTESTINAL TRACT: The small and large bowel are unremarkable. The appendix is unremarkable. ABDOMINAL WALL: No significant hernia is appreciated. LYMPH NODES: There is small bowel mesentery lymphadenopathy. Larger lymph nodes are upper normal in size. Largest lymph nodes centimeter in short axis in the right mid abdomen and axial image 44 series 3. These appear unchanged from previous exam. No other adenopathy. No ascites VASCULAR: Unremarkable. PELVIC VISCERA: Unremarkable. OSSEOUS STRUCTURES: Unremarkable. CT/CT abdomen pelvis w IV con IMPRESSION: Fatty liver. Small nonobstructing right renal stone. Prominent small bowel mesentery lymph nodes. Fleischner guidelines were followed.
[2022-01-25] MEDS: iohexoL 350 MG/ML 100 ML INFUS..BTL IV (10:11)
[2022-01-25] MEDS: Barium Sulfate Oral (Mocha) 450 ML ORAL.SUSP 900 ML PO (10:12)
== END 2022-01-25 07:23 | disposition home or self-care (01) ==
LOC: HO.CT 07:22
PROVIDERS: PCP General Practice; Visit Provider Emergency Medicine
DX: R10.32 Left lower quadrant pain (principal)
CPT/HCPCS: 74177; Q9967

== ENCOUNTER 2022-03-18 15:59 | Outpatient (REF) | payer OTHER, SELFPAY ==
[2022-03-23 15:17] LABS: Von Willebrand Factor Antigen 41 % (50-217)
== END 2022-03-18 16:00 | disposition home or self-care (01) ==
LOC: HO.LAB 15:59
PROVIDERS: Absent Provider General Practice; PCP General Practice; Visit Provider Advanced Practice Midwife
DX: N93.9 Abnormal uterine and vaginal bleeding, unspecified (principal)
CPT/HCPCS: 36415; 85246

== ENCOUNTER 2022-03-21 16:00 | Outpatient (RCR) | payer OTHER, SELFPAY | END 2022-03-29 11:07 | disposition home or self-care (01) | LOC: HO.PT 16:00 | PROVIDERS: PCP General Practice; Visit Provider Nurse Practitioner Family | DX: M25.561 Pain in right knee (principal); M25.562 Pain in left knee | CPT/HCPCS: 97110; 97162 ==

== ENCOUNTER → 2022-04-29 15:40 | Outpatient (BNV) | payer OTHER, SELFPAY | PROVIDERS: PCP General Practice; Visit Provider Internal Medicine | DX: N92.1 Excessive and frequent menstruation with irregular cycle (principal) | CPT/HCPCS: 99213; 99214 ==

== ENCOUNTER 2022-08-26 07:37 | Emergency (ER) | payer OTHER, SELFPAY ==
--- NOTE | ~2022-08-26 | CT_ITS ---
EXAMINATION: CT ABDOMEN AND PELVIS WITHOUT CONTRAST CLINICAL INFORMATION: Right lower quadrant pain. COMPARISON: 01/25/2022 CT scan of the abdomen and pelvis. TECHNIQUE: Multidetector volumetric imaging was performed from the superior aspect of the liver through the pubic symphysis. Sagittal and coronal reformatted images were obtained on the technologist's workstation. Lack of intravenous and oral contrast limits visceral evaluation. This CT examination was performed using dose optimization techniques as appropriate, variously including the following: *Automated exposure control *Adjustment of mA and/or kV according to patient size (this includes techniques or standardized protocols for targeted exams where dose is matched to indication/reason for exam; i.e. extremities or head) *Use of iterative reconstruction technique DLP: 557 mGy-cm FINDINGS: LUNG BASES: The visualized lung bases are unremarkable. LIVER, GALLBLADDER, AND BILIARY TREE: Mild diffuse decreased hepatic attenuation without focal abnormality. Status post cholecystectomy. No significant biliary ductal dilatation. PANCREAS: Unremarkable. SPLEEN: Unremarkable. ADRENAL GLANDS: Unremarkable. 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 Several punctate nonobstructing right intrarenal calculi are seen. One of the largest is seen in the lower pole measuring 0.2 cm (image 45, series 5). The left kidney is unremarkable. No hydroureteronephrosis bilaterally. BLADDER: Unremarkable. GASTROINTESTINAL TRACT: The stomach, small bowel and appendix are unremarkable. The colon and rectum are unremarkable. ABDOMINAL WALL: No significant hernia is appreciated. LYMPH NODES: No lymphadenopathy. VASCULAR: Unremarkable. PELVIC VISCERA: Anteverted and mildly retroflexed uterus. Small high attenuation nodule associated with the right ovary measuring 1.0 cm apices image 58, series 5). OSSEOUS STRUCTURES: Unremarkable. CT/CT abdomen pelvis wo IV con IMPRESSION: 1. No acute intra-abdominal/pelvic abnormality to explain the patient's pain. No evidence for acute appendicitis. 2. Nonobstructing right intrarenal calculi. No hydroureteronephrosis. 3. Mild hepatic steatosis. 4. Small high attenuation nodule associated with the right ovary is nonspecific, but could represent a small hemorrhagic cyst. This is likely not a cause of the patient's pain, but could be further evaluated with nonemergent pelvic ultrasound.
[2022-08-26 07:46] VITALS: BP 139/94; PULSE 88; RESP 16; TEMP 36.8; O2SAT 100; BMI 31.8
--- NOTE | 2022-08-26 07:59 | ED_ITS ---
HPI - Abdominal Pain General Chief Complaint: Abdominal Pain Stated Complaint: Kidney stone Time Seen by Provider: 08/26/22 07:45 History of Present Illness HPI narrative: Patient is a 26-year-old female presents today with having abdominal pain over the right flank area radiating to the right lower quadrant. The pain is sharp. Similar to previous bouts of kidney stone. Associated with nausea. Patient is from home. No coughing or congestion or respiratory symptoms. No diaphoresis. Related Data Home Medications Medication Instructions Recorded Confirmed vitamin with calcium 1 tab PO DAILY 12/10/21 06/13/22 no.72-iron 27 mg-folic acid 1 mg tablet ( Vitamins Plus Low Iron) ibuprofen 400 mg tablet 400 mg PO Q6H PRN Pain 03/29/22 06/13/22 Previous Rx's Medication Instructions Recorded ibuprofen 400 mg tablet 400 mg PO Q6H PRN pain #20 tabs 08/26/22 Allergies Allergy/AdvReac Type Severity Reaction Status Date / Time terbinafine [TERBINAFINE] Allergy Severe ANAPHYLAXIS Verified 06/13/22 15:56 sulfamethoxazole Allergy Angioedema Verified 06/13/22 15:56 [From Bactrim] trimethoprim [From Bactrim] Allergy Angioedema Verified 06/13/22 15:56 Review of Systems Review of Systems Positive right flank PMFSH Past Medical History Attestation statement: The following information was validated with the patient. Medical History Kidney stones Surgical History History of esophagogastroduodenoscopy (EGD) Hx of cholecystectomy Family History Family History Mother Diabetes HTN (hypertension) Paternal Grandfather HTN (hypertension) Paternal Grandmother HTN (hypertension) Maternal Grandfather HTN (hypertension) Maternal Grandfather HTN (hypertension) Diabetes Maternal Grandmother HTN (hypertension) Social History Social History Household Members: Family Housing: House Alcohol intake: never Patient Tobacco Use Status: Never used Tobacco Smoked in Last 30 Days: No Use of substances other than those prescribed or required for medical reasons: No Advance Directives: No Advance Directives Information Provided: Yes Patient : Yes service: No Current occupational status: employed 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 Oriented X3. No acute distress. Eyes: Pupils equal, round and reactive to light. ENT: Pharynx normal. Neck: Normal inspection. Neck supple. No lymph nodes noted. No crepitus CVS: Normal heart rate and rhythm. Pulses normal. Normal S1 and S2 Respiratory: No respiratory distress. Breath sounds normal. No Wheezing. No rales Abdomen: Soft and nontender. No rigidity. No distention. good BS x4 Skin: Skin warm and dry. Normal skin color. Normal skin turgor. Extremities: No lower extremity edema. Neurovascular intact to all extremities. No Lacerations. No Rash Neuro: Oriented X 3. No motor deficit. No sensory deficit. Moving all extermities. No slurred speech Medical Decision Making Medical Decision Making [facility] Narrative: 26 years old presents today with having right flank pain radiating down to her groin area. Patient had a history of kidney stones in the past. The pain is sharp. Radiating. Similar to previous bouts of kidney stone. CT scan of the abdomen was done. There is no evidence of stone in the ureter. There is no evidence of appendicitis. There is no evidence of obstruction abscess p erforation. Positive right ovarian cyst noted. Will discharge patient home. Close follow-up on an outpatient basis. test was negative. Urine was negative for any acute evidence of infection. She is in stable condition. Differential Diagnosis Differential Diagnoses: The differential diagnosis associated with the presentation includes Flank pain secondary to kidney stone, related issue, urinary tract infection, ovarian cyst, appendicitis, biliary issues Lab Data [facility] Lab Attestation statement: I reviewed the patient's lab results. 08/26/22 08:31 08/26/22 08:31 Labs: Lab Results 03/31/23 03/31/23 03/31/23 Range/Units 08:31 08:31 08:31 WBC 11.0 H (4.8-10.8) X10*3/uL RBC 4.44 (4.20-5.50) X10*6/uL Hgb 12.5 (12.0-16.0) g/dl Hct 37.7 (37.0-47.0) % MCV 84.9 (80.0-98.0) fL MCH 28.2 (27.0-33.0) pg MCHC 33.2 (31.0-35.0) g/dl RDW 13.6 (11.0-16.0) % Plt Count 257 (160-400) X10*3/uL MPV 9.6 (9.4-12.3) fL Immature Gran % (Auto) 0.4 (0.0-0.4) % Neut % (Auto) 67.5 (45-73) % Lymph % (Auto) 16.8 L (20-40) % Dillon % (Auto) 7.1 (2-11) % Eos % (Auto) 7.7 H (0-4) % Baso % (Auto) 0.5 (0-2) % Lymph # (Auto) 1.8 (1.2-4.9) X10*3/uL Dillon # (Auto) 0.8 (0.1-1.2) X10*3/uL Eos # (Auto) 0.8 H (0.0-0.4) X10*3/uL Baso # (Auto) 0.1 (0.0-0.2) X10*3/uL Abs Immat Gran (auto) 0.04 H (0.00-0.03) X10*3/uL Absolute Neuts (auto) 7.4 (2.0-8.3) x10*3/uL Absolute Nucleated RBC 0.000 (0.0-0.012) X10*3/uL Nucleated RBC % (auto) 0.0 (0.0-0.2) /100WBC Sodium 139 (135-145) mmol/L Potassium 4.2 (3.3-5.1) mmol/L Chloride 107 (96-108) mmol/L Carbon Dioxide 23 (22-29) mmol/L Anion Gap 13 (12-20) BUN 13 (9-16) mg/dL Creatinine 0.68 (0.5-1.4) mg/dL Estim Creat Clear Calc 123.0 Estimated GFR > 60 Random Glucose 98 (60-115) mg/dL Calcium 8.8 (8.4-10.2) mg/dL Total Bilirubin 0.4 (0.0-1.0) mg/dL Direct Bilirubin < 0.2 (0.0-0.5) mg/dL AST 13 (5-31) U/L ALT 19 (0-31) U/L Alkaline Phosphatase 63 (39-117) U/L Total Protein 6.0 L (6.5-8.0) g/dL Albumin 3.9 (3.5-5.0) g/dL Lipase 16 (8-78) U/L Urine Color Yellow Urine Appearance Clear Urine pH 5.5 (5.0-9.0) Ur Specific [place] 1.025 (1.005-1.025) Urine Protein Negative (Neg-Trace) mg/dL Urine Glucose (UA) Negative (Negative) mg/dL Urine Ketones Negative (Negative) mg/dL Urine Blood Negative (Negative) Urine Nitrite Negative (Negative) Ur Leukocyte Esterase Negative (Negative) Urine Test (NEGATIVE) 08/26/22 Range/Units 08:31 WBC (4.8-10.8) X10*3/uL RBC (4.20-5.50) X10*6/uL Hgb (12.0-16.0) g/dl Hct (37.0-47.0) % MCV (80.0-98.0) fL MCH (27.0-33.0) pg MCHC (31.0-35.0) g/dl RDW (11.0-16.0) % Plt Count (160-400) X10*3/uL MPV (9.4-12.3) fL Immature Gran % (Auto) (0.0-0.4) % Neut % (Auto) (45-73) % Lymph % (Auto) (20-40) % Dillon % (Auto) (2-11) % Eos % (Auto) (0-4) % Baso % (Auto) (0-2) % Lymph # (Auto) (1.2-4.9) X10*3/uL Dillon # (Auto) (0.1-1.2) X10*3/uL Eos # (Auto) (0.0-0.4) X10*3/uL Baso # (Auto) (0.0-0.2) X10*3/uL Abs Immat Gran (auto) (0.00-0.03) X10*3/uL Absolute Neuts (auto) (2.0-8.3) x10*3/uL Absolute Nucleated RBC (0.0-0.012) X10*3/uL Nucleated RBC % (auto) (0.0-0.2) /100WBC Sodium (135-145) mmol/L Potassium (3.3-5.1) mmol/L Chloride (96-108) mmol/L Carbon Dioxide (22-29) mmol/L Anion Gap (12-20) BUN (9-16) mg/dL Creatinine (0.5-1.4) mg/dL Estim Creat Clear Calc Estimated GFR Random Glucose (60-115) mg/dL Calcium (8.4-10.2) mg/dL Total Bilirubin (0.0-1.0) mg/dL Direct Bilirubin (0.0-0.5) mg/dL AST (5-31) U/L ALT (0-31) U/L Alkaline Phosphatase (39-117) U/L Total Protein (6.5-8.0) g/dL Albumin (3.5-5.0) g/dL Lipase (8-78) U/L Urine Color Urine Appearance Urine pH (5.0-9.0) Ur Specific [place] (1.005-1.025) Urine Protein (Neg-Trace) mg/dL Urine Glucose (UA) (Negative) mg/dL Urine Ketones (Negative) mg/dL Urine Blood (Negative) Urine Nitrite (Negative) Ur Leukocyte Esterase (Negative) Urine Test NEGATIVE (NEGATIVE) Independent Interpretation I performed an independent interpretation of an: CT Scan External Record Review External record reviewed: Prior outpatient radiology Chronic Conditions Kidney stone Medications Administered Discontinued Medications Generic Name Dose Route Start Last Admin Trade Name Freq PRN Reason Stop Dose Admin Hydromorphone HCl 0.5 mg 08/26/22 07:57 08/26/22 08:30 Hydromorphone Hcl 1 Mg/Ml Syringe IVPUSH 08/26/22 07:58 0.5 mg ONCE ONE Administration Protocol Sodium Chloride 1,000 mls @ 999 mls/hr 08/26/22 08:00 08/26/22 09:27 Ns IV 08/26/22 09:00 Infused .Q1H1M ADRIAN Infusion Ketorolac Tromethamine 30 mg 08/26/22 07:57 08/26/22 08:30 Ketorolac Tromethamine 30 Mg/Ml Vial IVPUSH 08/26/22 07:58 30 mg ONCE ONE Administration Ondansetron HCl 4 mg 08/26/22 07:57 08/26/22 08:30 Ondansetron Hcl 4 Mg/2 Ml Vial IVPUSH 08/26/22 07:58 4 mg ONCE ONE Administration Discharge Plan Discharge Clinical Impression: Acute flank pain Patient Disposition: Home, Self-Care Instructions: Flank Pain (ED) Prescriptions: New ibuprofen 400 mg tablet 400 mg PO Q6H PRN (Reason: pain) Qty: 20 0RF No Action Vitamin Plus Low Iron 27 mg iron- 1 mg tablet 1 tab PO DAILY ibuprofen 400 mg Tablet 400 mg PO Q6H PRN (Reason: Pain) Referrals: Soniya Colon MD [Primary Care Provider] -
[2022-08-26] MEDS: Ketorolac Tromethamine 30 MG/ML VIAL IVPUSH (08:30)
[2022-08-26] MEDS: HYDROmorphone HCl 1 MG/ML SYRINGE 0.5 MG IVPUSH (08:30)
[2022-08-26] MEDS: ondansetron HCL 4 MG/2 ML VIAL IVPUSH (08:30)
[2022-08-26] MEDS: 0.9 % Sodium Chloride 1,000 ML 999 ML IV (08:31)
[2022-08-26 08:36] LABS: MANUAL DIFF FLAG NO
[2022-08-26 08:38] LABS: Basophils Absolute Auto 0.1 X10*3/uL (0.0-0.2); Basophils Percent Auto 0.5 % (0-2); Eosinophils Absolute Auto 0.8 X10*3/uL (0.0-0.4); Eosinophils Percent Auto 7.7 % (0-4); Hematocrit 37.7 % (37.0-47.0); Hemoglobin 12.5 g/dl (12.0-16.0); Imm Gran Abs Auto 0.04 X10*3/uL (0.00-0.03); Imm Gran Pct Auto 0.4 % (0.0-0.4); Lymphocytes Absolute Auto 1.8 X10*3/uL (1.2-4.9); Lymphocytes Percent Auto 16.8 % (20-40); Mean Corpuscular HGB Conc 33.2 g/dl (31.0-35.0); Mean Corpuscular Hemoglobin 28.2 pg (27.0-33.0); Mean Corpuscular Volume 84.9 fL (80.0-98.0); Mean Platelet Volume 9.6 fL (9.4-12.3); Monocytes Absolute Auto 0.8 X10*3/uL (0.1-1.2); Monocytes Percent Auto 7.1 % (2-11); Neutrophils Absolute Auto 7.4 x10*3/uL (2.0-8.3); Neutrophils Percent Auto 67.5 % (45-73); Platelet Count 257 X10*3/uL (160-400); Red Blood Count 4.44 X10*6/uL (4.20-5.50); Red Cell Distribution Width 13.6 % (11.0-16.0)
[2022-08-26 08:39] LABS: UPreg QC Valid YES; Urine Pregnancy NEGATIVE (NEGATIVE)
[2022-08-26 08:52] LABS: Color Urine Yellow; Glucose Urine UA Negative (Negative); Leukocyte Esterase Urine Negative (Negative); Nitrite Urine Negative (Negative); PH 5.5 (5.0-9.0); Specific Gravity - Urine 1.025 (1.005-1.025); Urine Blood Negative (Negative); Urine Ketones Negative (Negative); Urine Protein Negative (Neg-Trace)
[2022-08-26 08:53] LABS: Appearance Urine Clear
[2022-08-26 08:54] VITALS: BP 106/61; PULSE 71; RESP 14; TEMP 36.5; O2SAT 96
[2022-08-26 08:56] LABS: Alanine Aminotransferase 19 U/L (0-31); Albumin Level 3.9 g/dL (3.5-5.0); Alkaline Phosphatase 63 U/L (39-117); Anion Gap 13 (12-20); Aspartate Amino Transferase 13 U/L (5-31); Bilirubin Direct < 0.2 mg/dL (0.0-0.5); Bilirubin Total 0.4 mg/dL (0.0-1.0); Blood Urea Nitrogen 13 mg/dL (9-16); Calcium 8.8 mg/dL (8.4-10.2); Carbon Dioxide 23 mmol/L (22-29); Chloride 107 mmol/L (96-108); Estimated Glomerular Filt Rate > 60; Glucose Random 98 mg/dL (60-115); Lipase 16 U/L (8-78); Potassium 4.2 mmol/L (3.3-5.1); Sodium 139 mmol/L (135-145)
--- NOTE | 2022-08-26 09:27 | PC.NURSE ---
IVF running tolerating, reports 6/10 pain post medication ABD soft tender right no guarding noted will CTM
--- NOTE | 2022-08-26 10:39 | PC.NURSE ---
Awaiting CT read patient continues to complain of some pain MD aware will CTM
[2022-08-26 11:00] VITALS: BP 105/69; PULSE 68; RESP 13; TEMP 37.1; O2SAT 98
== END 2022-08-26 11:32 | disposition home or self-care (01) ==
PROVIDERS: Emergency Provider Emergency Medicine Emergency Medical Services; PCP General Practice
DX: R10.9 Unspecified abdominal pain (principal); Z87.442 Personal history of urinary calculi
CPT/HCPCS: 36415; 74176; 80048; 80076; 81003; 81025; 83690; 85025; 96361; 96374; 96375; 99284; J1170; J1885; J2405

== ENCOUNTER 2022-10-12 07:46 | Outpatient (REF) | payer OTHER, SELFPAY ==
[2022-10-12 09:19] LABS: Alanine Aminotransferase 21 U/L (0-31); Albumin Level 4.2 g/dL (3.5-5.0); Alkaline Phosphatase 73 U/L (39-117); Anion Gap 13 (12-20); Aspartate Amino Transferase 14 U/L (5-31); Bilirubin Total 0.4 mg/dL (0.0-1.0); Blood Urea Nitrogen 12 mg/dL (9-16); Calcium 9.4 mg/dL (8.4-10.2); Carbon Dioxide 26 mmol/L (22-29); Chloride 107 mmol/L (96-108); Estimated Glomerular Filt Rate > 60; Glucose Random 98 mg/dL (60-115); Lactate Dehydrogenase 205 U/L (122-220); Potassium 4.2 mmol/L (3.3-5.1); Sodium 142 mmol/L (135-145); Total Protein 6.5 g/dL (6.5-8.0)
== END 2022-10-12 07:47 | disposition home or self-care (01) ==
LOC: HO.LAB 07:46
PROVIDERS: PCP General Practice; Visit Provider Emergency Medicine
DX: R10.9 Unspecified abdominal pain (principal); Z87.442 Personal history of urinary calculi
CPT/HCPCS: 36415; 80053; 82550; 83615; 83874

== ENCOUNTER 2022-10-12 09:07 | Emergency (ER) | payer OTHER, SELFPAY ==
[2022-10-12 09:10] VITALS: BP 129/79; PULSE 106; RESP 18; TEMP 36.3; O2SAT 99; BMI 31.1
--- NOTE | 2022-10-12 09:28 | ED.GENADULT ---
HPI - General Adult General Chief complaint: General Medical Stated complaint: lower back pain Time Seen by Provider: 10/12/22 09:28 Source: patient Limitations: no limitations History of Present Illness HPI narrative: 27-year-old female who presents to the ER with atraumatic left-sided back/flank pain. Patient has a history kidney stones in the past usually on the right. Patient also has a history of rhabdomyolysis. Patient states she recently returned from [place] on vacation. Patient states she felt like she stayed hydrated did not drink alcohol. Patient denies any trauma or falls or injury to her lower back. The patient was seen by urgent care recently said maybe was a kidney stone. Patient states symptoms feel more closely to when she had rhabdomyolysis. That incident was after extreme exercise. Patient denies any urinary symptoms have some slight nausea decreased appetite and body aches. Patient has had her gallbladder removed in the past. Patient states no relief with muscle relaxers that she had at home. The pain in the left side of the back does not increase with any range of motion or deep palpation. Patient has also tried [id number]-[id number] topical therapy without success. Related Data Home Medications Medication Instructions Recorded Confirmed vitamin with calcium 1 tab PO DAILY 12/10/21 09/09/22 no.72-iron 27 mg-folic acid 1 mg tablet ( Vitamins Plus Low Iron) ibuprofen 400 mg tablet 400 mg PO Q6H PRN Pain 03/29/22 09/09/22 Previous Rx's Medication Instructions Recorded tranexamic acid 650 mg tablet 650 mg PO Q8H #30 tabs 09/09/22 prednisone 20 mg tablet 40 mg PO DAILY 5 days #10 tabs 09/16/22 cephalexin 500 mg capsule 500 mg PO QID #28 caps 10/12/22 ibuprofen 400 mg tablet 400 mg PO TID PRN pain #30 tabs 10/12/22 Allergies Allergy/AdvReac Type Severity Reaction Status Date / Time terbinafine [TERBINAFINE] Allergy Severe ANAPHYLAXIS Verified 10/12/22 09:13 sulfamethoxazole Allergy Angioedema Verified 10/12/22 09:13 [From Bactrim] trimethoprim [From Bactrim] Allergy Angioedema Verified 10/12/22 09:13 Review of Systems Review of Systems: General: No fever, no chills Ophthalmology: No vision changes, no discharge ENT: No sore throat, no ear pain Cardiovascular: No chest pain, no peripheral edema, no shortness of breath Respiratory: No dyspnea, no sputum production, no cough Muscle skeletal: Positive left-sided back/flank pain, Positive malaise, no back pain, no neck pain, no extremity pain GI: No abdominal pain: no nausea vomiting, no diarrhea : No dysuria, no urgency, no frequency Psychiatric: No depression, no suicidal ideation, no homicidal ideation Skin: No rash Immunology: No immunocompromised Hematology: No bleeding, no bruising PMFSH Past Medical History Attestation statement: The following information was validated with the patient. Medical History Kidney stones Surgical History History of esophagogastroduodenoscopy (EGD) Hx of cholecystectomy Family History Family History Mother Diabetes HTN (hypertension) Paternal Grandfather HTN (hypertension) Paternal Grandmother HTN (hypertension) Maternal Grandfather HTN (hypertension) Maternal Grandfather HTN (hypertension) Diabetes Maternal Grandmother HTN (hypertension) Social History Social History Household Members: Family Housing: House Alcohol intake: never Patient Tobacco Use Status: Never used Tobacco Advance Directives: No Advance Directives Information Provided: No service: No Current occupational status: employed 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, 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 ED Vital Signs: Vital Signs - 24 hr 10/12/22 09:10 Temperature 97.4 F Pulse Rate 106 H Respiratory Rate 18 Blood Pressure 129/79 Pulse Oximetry 99 Oxygen Delivery Method Room Air BMI result Body Mass Index 31.1 General appearance: Awake, alert, cooperative, in no acute distress Skin: Warm, dry, no rash Eyes: PERRL, EOMI, no icterus ENT: Mucosa dry uvula midline Neck: Soft supple full range of motion, no nuchal rigidity Pulmonary: Breath sounds clear to auscultation bilaterally, no accessory muscle use Cardiovascular: Regular rate and rhythm, no murmurs and rubs Abdomen: Soft nontender, no rebound or guarding, positive bowel sounds Extremities: Left flank appears nontender no ecchymosis or skin discoloration is noted. No midline tenderness of the lumbar spine. No deformity, nontender, no peripheral edema noted Neuro: Alert oriented x3, no focal deficit Psych: Normal affect Course Course Course Narrative: Viral syndrome Dehydration Renal calculi Rhabdomyolysis Muscle skeletal strain Pyelonephritis 27-year-old female with recent travel history to [place] in the past medical history of renal calculi and rhabdomyolysis in the past. CBC CMP UA hCG CPK is pending. 1000 mL normal saline IV bolus 12:04 Status post hydration patient states symptoms improved. Patient has had a history of pyelonephritis in the past. 2+ leuk esterase positive white cells 11-20 with history of past pyelonephritis will treat with Keflex HCG is negative Medications Administered Discontinued Medications Generic Name Dose Route Start Last Admin Trade Name Freq PRN Reason Stop Dose Admin Sodium Chloride 1,000 mls @ 999 mls/hr 10/12/22 09:45 10/12/22 11:11 Ns IV 10/12/22 10:45 Infused .Q1H1M ADRIAN Infusion Medical Decision Making Lab Data 10/12/22 09:47 10/12/22 09:47 Labs: Lab Results 10/12/22 10/12/22 10/12/22 Range/Units 09:47 09:47 09:51 WBC 13.0 H (4.8-10.8) X10*3/uL RBC 4.84 (4.20-5.50) X10*6/uL Hgb 13.3 (12.0-16.0) g/dl Hct 41.0 (37.0-47.0) % MCV 84.7 (80.0-98.0) fL MCH 27.5 (27.0-33.0) pg MCHC 32.4 (31.0-35.0) g/dl RDW 13.3 (11.0-16.0) % Plt Count 329 D (160-400) X10*3/uL MPV 9.8 (9.4-12.3) fL Immature Gran % (Auto) 0.3 (0.0-0.4) % Neut % (Auto) 72.7 (45-73) % Lymph % (Auto) 12.8 L (20-40) % Starke % (Auto) 7.9 (2-11) % Eos % (Auto) 5.8 H (0-4) % Baso % (Auto) 0.5 (0-2) % Lymph # (Auto) 1.7 (1.2-4.9) X10*3/uL Starke # (Auto) 1.0 (0.1-1.2) X10*3/uL Eos # (Auto) 0.8 H (0.0-0.4) X10*3/uL Baso # (Auto) 0.1 (0.0-0.2) X10*3/uL Abs Immat Gran (auto) 0.04 H (0.00-0.03) X10*3/uL Absolute Neuts (auto) 9.5 H (2.0-8.3) x10*3/uL Absolute Nucleated RBC 0.000 (0.0-0.012) X10*3/uL Nucleated RBC % (auto) 0.0 (0.0-0.2) /100WBC Sodium 143 (135-145) mmol/L Potassium 4.0 (3.3-5.1) mmol/L Chloride 107 (96-108) mmol/L Carbon Dioxide 25 (22-29) mmol/L Anion Gap 15 (12-20) BUN 11 (9-16) mg/dL Creatinine 0.81 (0.5-1.4) mg/dL Estim Creat Clear Calc 101.2 Estimated GFR > 60 Random Glucose 130 H (60-115) mg/dL Calcium 9.4 (8.4-10.2) mg/dL Total Bilirubin 0.4 (0.0-1.0) mg/dL AST 15 (5-31) U/L ALT 21 (0-31) U/L Alkaline Phosphatase 74 (39-117) U/L Total Creatine Kinase 121 (26-140) U/L Total Protein 6.6 (6.5-8.0) g/dL Albumin 4.2 (3.5-5.0) g/dL Urine Color Urine Appearance Urine pH (5.0-9.0) Ur Specific Lockhart (1.005-1.025) Urine Protein (Neg-Trace) mg/dL Urine Glucose (UA) (Negative) mg/dL Urine Ketones (Negative) mg/dL Urine Blood (Negative) Urine Nitrite (Negative) Ur Leukocyte Esterase (Negative) Urine RBC (0-2) /HPF Urine WBC (0-5) /HPF Ur Squamous Epith Cells (0-2) /HPF Urine Bacteria (None Seen) Hyaline Casts (0-2) /LPF Urine Test (NEGATIVE) Influenza Type A (PCR) NEGATIVE (Negative) Influenza Type B (PCR) NEGATIVE (Negative) RSV RNA Qual (PCR) NEGATIVE (Negative) SARS-CoV-2 RNA (RT-PCR) NEGATIVE (Negative) 10/12/22 10/12/22 Range/Units 10:42 10:42 WBC (4.8-10.8) X10*3/uL RBC (4.20-5.50) X10*6/uL Hgb (12.0-16.0) g/dl Hct (37.0-47.0) % MCV (80.0-98.0) fL MCH (27.0-33.0) pg MCHC (31.0-35.0) g/dl RDW (11.0-16.0) % Plt Count (160-400) X10*3/uL MPV (9.4-12.3) fL Immature Gran % (Auto) (0.0-0.4) % Neut % (Auto) (45-73) % Lymph % (Auto) (20-40) % Starke % (Auto) (2-11) % Eos % (Auto) (0-4) % Baso % (Auto) (0-2) % Lymph # (Auto) (1.2-4.9) X10*3/uL Starke # (Auto) (0.1-1.2) X10*3/uL Eos # (Auto) (0.0-0.4) X10*3/uL Baso # (Auto) (0.0-0.2) X10*3/uL Abs Immat Gran (auto) (0.00-0.03) X10*3/uL Absolute Neuts (auto) (2.0-8.3) x10*3/uL Absolute Nucleated RBC (0.0-0.012) X10*3/uL Nucleated RBC % (auto) (0.0-0.2) /100WBC Sodium (135-145) mmol/L Potassium (3.3-5.1) mmol/L Chloride (96-108) mmol/L Carbon Dioxide (22-29) mmol/L Anion Gap (12-20) BUN (9-16) mg/dL Creatinine (0.5-1.4) mg/dL Estim Creat Clear Calc Estimated GFR Random Glucose (60-115) mg/dL Calcium (8.4-10.2) mg/dL Total Bilirubin (0.0-1.0) mg/dL AST (5-31) U/L ALT (0-31) U/L Alkaline Phosphatase (39-117) U/L Total Creatine Kinase (26-140) U/L Total Protein (6.5-8.0) g/dL Albumin (3.5-5.0) g/dL Urine Color Yellow Urine Appearance Clear Urine pH 6.5 (5.0-9.0) Ur Specific Lockhart 1.025 (1.005-1.025) Urine Protein Negative (Neg-Trace) mg/dL Urine Glucose (UA) Negative (Negative) mg/dL Urine Ketones Negative (Negative) mg/dL Urine Blood Negative (Negative) Urine Nitrite Negative (Negative) Ur Leukocyte Esterase Moderate (2+) H (Negative) Urine RBC 0-2 (0-2) /HPF Urine WBC 11-20 H (0-5) /HPF Ur Squamous Epith Cells 3-5 (0-2) /HPF Urine Bacteria None Seen (None Seen) Hyaline Casts 0-2 (0-2) /LPF Urine Test NEGATIVE (NEGATIVE) Influenza Type A (PCR) (Negative) Influenza Type B (PCR) (Negative) RSV RNA Qual (PCR) (Negative) SARS-CoV-2 RNA (RT-PCR) (Negative) Discharge Plan Discharge Clinical Impression: UTI (urinary tract infection), Dehydration, Acute left flank pain Patient Disposition: Home, Self-Care Instructions: Urinary Tract Infection in Women (DC), Dehydration (ED) Prescriptions: New cephalexin 500 mg capsule 500 mg PO QID Qty: 28 0RF ibuprofen 400 mg tablet 400 mg PO TID PRN (Reason: pain) Qty: 30 0RF No Action Vitamin Plus Low Iron 27 mg iron- 1 mg tablet 1 tab PO DAILY ibuprofen 400 mg Tablet 400 mg PO Q6H PRN (Reason: Pain) tranexamic acid 650 mg Tablet 650 mg PO Q8H Qty: 30 1RF prednisone 20 mg tablet 40 mg PO DAILY 5 Days Qty: 10 0RF Stand Alone Forms: Work/School Release
[2022-10-12 09:55] LABS: MANUAL DIFF FLAG NO
[2022-10-12 09:58] LABS: Basophils Absolute Auto 0.1 X10*3/uL (0.0-0.2); Basophils Percent Auto 0.5 % (0-2); Eosinophils Absolute Auto 0.8 X10*3/uL (0.0-0.4); Eosinophils Percent Auto 5.8 % (0-4); Hemoglobin 13.3 g/dl (12.0-16.0); Imm Gran Abs Auto 0.04 X10*3/uL (0.00-0.03); Imm Gran Pct Auto 0.3 % (0.0-0.4); Lymphocytes Absolute Auto 1.7 X10*3/uL (1.2-4.9); Lymphocytes Percent Auto 12.8 % (20-40); Mean Corpuscular HGB Conc 32.4 g/dl (31.0-35.0); Mean Corpuscular Hemoglobin 27.5 pg (27.0-33.0); Mean Corpuscular Volume 84.7 fL (80.0-98.0); Mean Platelet Volume 9.8 fL (9.4-12.3); Monocytes Percent Auto 7.9 % (2-11); Neutrophils Absolute Auto 9.5 x10*3/uL (2.0-8.3); Neutrophils Percent Auto 72.7 % (45-73); Platelet Count 329 X10*3/uL (160-400); Red Blood Count 4.84 X10*6/uL (4.20-5.50); Red Cell Distribution Width 13.3 % (11.0-16.0)
[2022-10-12] MEDS: 0.9 % Sodium Chloride 1,000 ML 999 ML IV (09:59)
[2022-10-12 10:26] LABS: Alanine Aminotransferase 21 U/L (0-31); Albumin Level 4.2 g/dL (3.5-5.0); Alkaline Phosphatase 74 U/L (39-117); Anion Gap 15 (12-20); Aspartate Amino Transferase 15 U/L (5-31); Bilirubin Total 0.4 mg/dL (0.0-1.0); Blood Urea Nitrogen 11 mg/dL (9-16); Calcium 9.4 mg/dL (8.4-10.2); Carbon Dioxide 25 mmol/L (22-29); Chloride 107 mmol/L (96-108); Creatinine Clr Calc Pharmacy 101.2; Estimated Glomerular Filt Rate > 60; Glucose Random 130 mg/dL (60-115); Sodium 143 mmol/L (135-145); Total Protein 6.6 g/dL (6.5-8.0)
[2022-10-12 10:42] LABS: Influenza A PCR NEGATIVE (Negative); Influenza B PCR NEGATIVE (Negative); Resp Syncy Virus RNA Qual PCR NEGATIVE (Negative); SARS COV2 PCR INHOUSE NEGATIVE (Negative)
[2022-10-12 10:50] LABS: Appearance Urine Clear; Color Urine Yellow; Glucose Urine UA Negative (Negative); Leukocyte Esterase Urine Moderate (2+) (Negative); Nitrite Urine Negative (Negative); PH 6.5 (5.0-9.0); Specific Gravity - Urine 1.025 (1.005-1.025); UMIC TRIGGER UACC YES; Urine Blood Negative (Negative); Urine Ketones Negative (Negative); Urine Protein Negative (Neg-Trace)
[2022-10-12 10:52] LABS: Bacteria Urine None Seen (None Seen); Hyaline Casts Urine 0-2 /LPF (0-2); RBC Urine 0-2 /HPF (0-2); UACC Culture Trigger YES
[2022-10-12 10:53] LABS: UPreg QC Valid YES; Urine Pregnancy NEGATIVE (NEGATIVE)
[2022-10-12 12:17] VITALS: BP 100/65; PULSE 75; RESP 16; TEMP 36.8; O2SAT 98
== END 2022-10-12 12:22 | disposition home or self-care (01) ==
PROVIDERS: Physician Assistant; Emergency Provider Student in an Organized Health Care Education/Training Program; PCP General Practice
DX: N39.0 Urinary tract infection, site not specified (principal); M54.50 Low back pain, unspecified; E86.0 Dehydration; Z20.822 Contact with and (suspected) exposure to COVID-19; Z20.828 Contact with and (suspected) exposure to other viral communicable diseases; Z79.899 Other long term (current) drug therapy
CPT/HCPCS: 0241U; 36415; 80053; 81001; 81025; 82550; 85025; 87086; 96360; 99284

== ENCOUNTER 2022-12-10 10:57 | Outpatient (AMB) | payer OTHER, SELFPAY ==
--- NOTE | 2022-12-10 11:07 | AM.OFFWIN_ITS ---
Intake Vital Signs 12/10/22 11:10 Height 5 ft 2 in BP 120/72 Blood Pressure Location Lt brachial Position Sitting Pulse 68 Pulse Source Pulse Oximeter Temp 98.2 F Temp Source Temporal Artery Scan Intake Visit Reasons: EP Rash t Intake Note: pt is here for c/o rash on lower abd Patient Tobacco Use Status: Never used Tobacco Allergies terbinafine [TERBINAFINE] Allergy (Severe, Verified 12/10/22 11:15) ANAPHYLAXIS sulfamethoxazole [From Bactrim] Allergy (Verified 12/10/22 11:15) Angioedema trimethoprim [From Bactrim] Allergy (Verified 12/10/22 11:15) Angioedema Medication List - Last Reconciled 12/10/22 by Beto Dial PA-C fluticasone propionate 50 mcg/actuation 1 spray intranasal BID 30 days ibuprofen 400 mg PO TID PRN PNV,calcium 60-xevh-kltdu acid 27 mg iron- 1 mg ( Vitamins Plus Low Iron) 1 tab PO DAILY tranexamic acid 650 mg PO Q8H Do you need a note to return to daycare/school/sports/work: No HPI EP Rash t HPI Details Patient is a 27-year-old female here today complaining of a rash over lower abdomen she has noted over last 2 days. Reports she was in the sun by the pool and had a small red spot on her lower abdomen. Has been trying to use Benadryl and topical Benadryl without much relief. Rash has gotten worse which prompted her visit today. 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, 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 Review of Systems Const Denies headache(s) Eyes Denies loss of vision ENT Denies vertigo, Denies dizziness, Denies headache(s) and Denies sore throat Card Denies chest pain, Denies leg edema and Denies lightheadedness Resp Denies cough, Denies hemoptysis and Denies wheezing GI Denies abdominal pain, Denies melena, Denies constipation, Denies diarrhea and Denies vomiting Denies urinary frequency, Denies dysuria and Denies urinary urgency Musc Denies arthralgias, Denies joint swelling, Denies numbness and Denies tingling Neuro Denies Abnormal speech present, Denies behavioral changes, Denies vertigo, Denies dizziness, Denies headache(s), Denies loss of vision, Denies memory loss, Denies numbness and Denies tingling Psych Denies anxiety, Denies behavioral changes, Denies depression, Denies memory loss and Denies panic attacks Alexy/Lymph Denies easy bleeding and Denies easy bruising Aller/Immun Denies wheezing Physical Exam Vital Signs: Last Vital Signs Temp 98.2 F 12/10/22 11:10 Pulse 68 12/10/22 11:10 BP 120/72 12/10/22 11:10 Const General: healthy appearing, no acute distress, alert and awake Nutritional Appearance: well nourished Orientation/consciousness: oriented to person, oriented to place and oriented to time HEENT Ears: TM's normal bilaterally General nose exam: Normal nasal mucous membranes and turbinates present Eyes Conjunctivae: conjunctivae normal Sclerae: sclerae normal Pupils: Equal, round and reactive pupils present Neck Neck: Yes no lymphadenopathy and Yes no JVD Thyroid: Thyroid normal Carotids: no bruits Resp Effort & Inspection: normal respiratory effort and not tachypneic Auscultation: no crackles, no rales, no rhonchi and no wheezes Cardio Rate: regular rate Rhythm: regular rhythm Heart sounds: no murmurs and normal S1 and S2 GI Palpation (GI): Soft to palpation, nontender, no hepatomegaly and no splenomegaly Auscultation: normal bowel sounds Skin General skin exam: dry skin Full body images: 1. ERYTHEMATOUS RASH WITH HIGH FORMATIONS OVER WAISTLINE Neuro General: oriented to person, oriented to place and oriented to time Cranial nerves: Yes Equal, round and reactive pupils present Speech: No Abnormal speech present Gait exam (Neuro): Normal gait present Motor exam (neuro): no tremor noted Extrem Right upper extremity: full ROM Left upper extremity: full ROM Right lower extremity: full ROM; no edema Left lower extremity: full ROM; no edema Psych Mental Status: mental status grossly normal Speech and movement: Normal speech and movement present Affect: normal affect Attitude: cooperative Thought process: Normal thought process present Assessment & Plan Assessment & Plan (1) Allergic reaction: Code(s): T78.40XA - Allergy, unspecified, initial encounter Qualifiers: Encounter type: initial encounter Qualified Code(s): T78.40XA - Allergy, unspecified, initial encounter Plan: Patient's signs and symptoms most consistent with an allergic dermatitis, will supply with short-term pulse dose script prednisone and topical triamcinolone (2) Dermatitis: Code(s): L30.9 - Dermatitis, unspecified Plan: As above Medications: New prednisone 40 mg (2 x 20 mg) PO DAILY 8 tabs 0RF 4 days T78.40XA - Allergy, unspecified, initial encounter triamcinolone acetonide 0.5% 1 appl topical BID 15 grams 0RF 10 days T78.40XA - Allergy, unspecified, initial encounter Coding Level of Care Code Est Pt Level 3 (18310) Diagnoses Allergic reaction T78.40XA Encounter type: initial encounter Dermatitis L30.9
[2022-12-10 11:10] VITALS: BP 120/72; PULSE 68; TEMP 36.8
== END 2022-12-10 11:25 | disposition home or self-care (01) ==
PROVIDERS: PCP General Practice; Visit Provider Physician Assistant
DX: T78.40XA Allergy, unspecified, initial encounter (principal); L30.9 Dermatitis, unspecified
CPT/HCPCS: 99051; 99213

== ENCOUNTER 2022-12-28 20:09 | Emergency (ER) | payer OTHER, SELFPAY ==
[2022-12-28 21:12] VITALS: BP 128/86; PULSE 73; RESP 18; TEMP 36.8; O2SAT 100; BMI 32.8
[2022-12-28 23:03] VITALS: BP 116/82; PULSE 81; RESP 17; TEMP 37.1; O2SAT 100
--- NOTE | 2022-12-28 23:14 | ED.HA ---
HPI - Headache General Chief Complaint: Headache Stated Complaint: migraine, ongoing since Monday Time Seen by Provider: 12/28/22 22:45 Source: patient Mode of arrival: ambulatory Limitations: no limitations History of Present Illness HPI Narrative: Patient with history of migraine headache denies any headache for last 4 years noticed headache for last 3- 4 days mostly localized in the right temporal area , with nausea and vomiting and photosensitivity tried Excedrin without much response no fever no chills no head injury Related Data Home Medications Medication Instructions Recorded Confirmed vitamin with calcium 1 tab PO DAILY 12/10/21 12/10/22 no.72-iron 27 mg-folic acid 1 mg tablet ( Vitamins Plus Low Iron) Previous Rx's Medication Instructions Recorded tranexamic acid 650 mg tablet 650 mg PO Q8H #30 tabs 09/09/22 ibuprofen 400 mg tablet 400 mg PO TID PRN pain #30 tabs 10/12/22 fluticasone propionate 50 1 spray intranasal BID 30 days #16 10/22/22 mcg/actuation nasal grams spray,suspension prednisone 20 mg tablet 40 mg PO DAILY 4 days #8 tabs 12/10/22 triamcinolone acetonide 0.5 % 1 appl topical BID 10 days #15 12/10/22 topical cream grams iozirrkkvn-kbyvumyswkpcv-ygsllgeq 1 tab PO Q6H PRN pain #30 tabs 12/29/22 50 mg-325 mg-40 mg tablet ondansetron 4 mg disintegrating 4 mg PO Q6-8H PRN nausea and 12/29/22 tablet vomiting #15 tabs sumatriptan succinate 50 mg tablet 50 mg PO Q2H PRN migraine headache 12/29/22 (Imitrex) #10 tabs Allergies Allergy/AdvReac Type Severity Reaction Status Date / Time terbinafine [TERBINAFINE] Allergy Severe ANAPHYLAXIS Verified 12/28/22 21:15 sulfamethoxazole Allergy Angioedema Verified 12/28/22 21:15 [From Bactrim] trimethoprim [From Bactrim] Allergy Angioedema Verified 12/28/22 21:15 Review of Systems Review of Systems: Yes all other systems are reviewed and are negative PMFSH Past Medical History Medical History Kidney stones Surgical History History of esophagogastroduodenoscopy (EGD) Hx of cholecystectomy Family History Family History Mother Diabetes HTN (hypertension) Paternal Grandfather HTN (hypertension) Paternal Grandmother HTN (hypertension) Maternal Grandfather HTN (hypertension) Maternal Grandfather HTN (hypertension) Diabetes Maternal Grandmother HTN (hypertension) Social History Social History Household Members: Family Housing: House Alcohol intake: never Patient Tobacco Use Status: Never used Tobacco Smoked in Last 30 Days: No Use of substances other than those prescribed or required for medical reasons: No Advance Directives: No Advance Directives Information Provided: No Patient : No service: No Current occupational status: employed 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 Oriented X3. No acute distress. Eyes: PERRLA, No Nystagmus ENT: Pharynx normal. Oral Mucosa moist no temporal artery tenderness Neck: Normal inspection. Neck supple. CVS: Normal heart rate and rhythm. Pulses normal. Respiratory: No respiratory distress. Equal air entry bilateral, no wheezing/rales/rhonchi Abdomen: Soft and nontender. Bowel sounds are present, no mass palpable, no CVA tenderness Skin: Skin warm and dry. Normal skin color. Normal skin turgor. Extremities: No lower extremity edema. No calf tenderness Neuro: Oriented X 3. No motor deficit. No sensory deficit.No cerebellar signs , cranial nerves II-XII intact Medications Administered Discontinued Medications Generic Name Dose Route Start Last Admin Trade Name Freq PRN Reason Stop Dose Admin Acetaminophen/Butalbital/Caffeine 1 tab 12/28/22 23:03 12/29/22 00:02 Butalb/Acetamin/Caff 50/325/40 Tablet PO 12/28/22 23:04 1 tab ONCE ONE Administration Ondansetron HCl 4 mg 12/28/22 23:03 12/29/22 00:02 Ondansetron Odt 4 Mg Tab.Kyree MARCIACherie 12/28/22 23:04 4 mg ONCE ONE Administration Sumatriptan Succinate 6 mg 12/28/22 23:03 12/29/22 00:02 Sumatriptan Succinate 6 Mg/0.5 Ml Vial SUBCUT 12/28/22 23:04 6 mg ONCE ONE Administration Medical Decision Making Medical Decision Making MDM Narrative: Patient clinically with migraine headache will give Imitrex , Fioricet and Zofran no warning signs of SAH Patient responded to Imitrex will discharge patient home on Imitrex and feels Discharge Plan Discharge Clinical Impression: Migraine Patient Disposition: Home, Self-Care Instructions: Migraine Headache (ED) Additional Instructions: Take Imitrex as prescribed Fioricet for headache with Imitrex does not work Zofran for nausea Prescriptions: New sumatriptan succinate [Imitrex] 50 mg tablet 50 mg PO Q2H PRN (Reason: migraine headache) Qty: 10 0RF Rx Instructions: do not exceed 2 doses per 24 hrs efozvhcbrq-eaijmwjdpszua-zffz 50-325-40 mg tablet 1 tab PO Q6H PRN (Reason: pain) Qty: 30 0RF ondansetron 4 mg tablet,disintegrating 4 mg PO Q6-8H PRN (Reason: nausea and vomiting) Qty: 15 0RF No Action Vitamin Plus Low Iron 27 mg iron- 1 mg tablet 1 tab PO DAILY tranexamic acid 650 mg Tablet 650 mg PO Q8H Qty: 30 1RF ibuprofen 400 mg tablet 400 mg PO TID PRN (Reason: pain) Qty: 30 0RF fluticasone propionate 50 mcg/actuation spray,suspension 1 spray intranasal BID 30 Days Qty: 16 0RF Rx Instructions: administer into each nostril prednisone 20 mg tablet 40 mg PO DAILY 4 Days Qty: 8 0RF triamcinolone acetonide 0.5 % cream 1 appl topical BID 10 Days Qty: 15 0RF Interventions: ED Discharge Assessment Last Done: 12/29/22 01:46 Discharge Date/Time: 12/29/22 01:47
[2022-12-29] MEDS: Butalb/Acetamin/Caff 50/325/40 TABLET 1 TAB PO (00:02)
[2022-12-29] MEDS: SUMAtriptan succinate 6 MG/0.5 ML VIAL SUBCUT (00:02)
[2022-12-29] MEDS: Ondansetron ODT 4 MG TAB.RAPDIS TRANSLINGU (00:02)
--- NOTE | 2022-12-29 01:34 | PC.NURSE ---
This RN only reviewed discharge instruction with pt, pt verbalized understanding, no sign of distress. Notified SELIN Bowling.
== END 2022-12-29 01:47 | disposition home or self-care (01) ==
PROVIDERS: Emergency Provider Internal Medicine; PCP General Practice
DX: G43.909 Migraine, unspecified, not intractable, without status migrainosus (principal); R11.2 Nausea with vomiting, unspecified; Z79.899 Other long term (current) drug therapy
CPT/HCPCS: 96372; 99284; J3030

== ENCOUNTER 2023-03-02 13:33 | Outpatient (REF) | payer OTHER, SELFPAY ==
[2023-03-04 02:08] LABS: Prolactin 2.9 ng/mL
== END 2023-03-02 13:34 | disposition home or self-care (01) ==
LOC: HO.HHCL 13:33
PROVIDERS: Visit Provider Advanced Practice Midwife
DX: N93.9 Abnormal uterine and vaginal bleeding, unspecified (principal); R10.31 Right lower quadrant pain; R63.5 Abnormal weight gain
CPT/HCPCS: 36415; 84146; 84443; 84702

== ENCOUNTER 2023-05-08 09:56 | Emergency (ER) | payer OTHER, SELFPAY ==
--- NOTE | ~2023-05-08 | CT_ITS ---
EXAMINATION: CT ABDOMEN AND PELVIS WITHOUT CONTRAST CLINICAL INFORMATION: Back pain. COMPARISON: 08/26/2022 TECHNIQUE: Multidetector volumetric imaging was performed from the superior aspect of the liver through the pubic symphysis. Sagittal and coronal reformatted images were obtained on the technologist's workstation. This CT examination was performed using dose optimization techniques as appropriate, variously including the following: *Automated exposure control *Adjustment of mA and/or kV according to patient size (this includes techniques or standardized protocols for targeted exams where dose is matched to indication/reason for exam; i.e. extremities or head) *Use of iterative reconstruction technique DLP: 566 mGy-cm FINDINGS: LUNG BASES: Small hiatal hernia. LIVER, GALLBLADDER, AND BILIARY TREE: The liver is decreased in attenuation. No focal hepatic lesion or biliary ductal dilatation is present. The gallbladder is surgically absent. PANCREAS: Unremarkable. SPLEEN: Unremarkable. ADRENAL GLANDS: Unremarkable. KIDNEYS AND URETERS: The kidneys are symmetric in size. 3 mm nonobstructing calculus right interpolar region. No hydronephrosis or perinephric stranding. BLADDER: No bladder calculus. GASTROINTESTINAL TRACT: Small and large bowel loops are of normal caliber. No small bowel obstruction. Appendix is within normal limits. ABDOMINAL WALL: No significant hernia is appreciated. LYMPH NODES: Numerous subcentimeter mesenteric lymph nodes. VASCULAR: Normal caliber abdominal aorta. PELVIC VISCERA: Unremarkable. OSSEOUS STRUCTURES: No destructive bone lesions. CT/CT abdomen pelvis wo IV con IMPRESSION: 3 mm nonobstructing right renal calculus. No hydronephrosis. Numerous subcentimeter mesenteric lymph nodes. This may represent mesenteric adenitis. Advise clinical correlation.
[2023-05-08 10:54] VITALS: BP 147/95; PULSE 88; RESP 18; TEMP 36.3; O2SAT 99; BMI 33.6
[2023-05-08 14:10] LABS: Appearance Urine Cloudy; Color Urine Yellow; Glucose Urine UA Negative (Negative); Leukocyte Esterase Urine Negative (Negative); Nitrite Urine Negative (Negative); PH 7.5 (5.0-9.0); Specific Gravity - Urine 1.015 (1.005-1.025); UMIC TRIGGER UACC YES; Urine Blood Trace (Negative); Urine Ketones Negative (Negative); Urine Protein Negative (Neg-Trace)
[2023-05-08 14:12] LABS: Bacteria Urine None Seen (None Seen); Hyaline Casts Urine 0-2 /LPF (0-2); RBC Urine 0-2 /HPF (0-2); Squamous Epithelial Cell Urine 0-2 /HPF (0-2); WBC Urine 0-5 /HPF (0-5)
[2023-05-08 15:00] LABS: UPreg QC Valid YES; Urine Pregnancy NEGATIVE (NEGATIVE)
[2023-05-08] MEDS: Ketorolac Tromethamine 30 MG/ML VIAL IM (15:28)
--- NOTE | 2023-05-08 16:51 | ED.GENADULT ---
HPI - General Adult General Chief complaint: Back Pain/Injury Stated complaint: Back pain/R leg and hand tingling Time Seen by Provider: 05/08/23 13:57 Source: patient Mode of arrival: ambulatory Limitations: no limitations History of Present Illness HPI narrative: 27 yold female with pmh of kidney stones and chronic back pain presents to the ED for righ sided lower back pain radiating down right leg. patient denies any dysuria, hematuria, fever, chills, chest pain, shortness of breath, rash, or any recent trauma. patient states back pain is worse on movement. patient denies any urinary / bowel incontinence. patient denies any IV drug use. patient denies any numbness / tingling in lower extremities. Patient denies any upper extremity numbness/weakness, headache, dizziness, slurred speech, facial droop, loss of vision, vomitting, or lower extremities weakness. Patient states no abdominal pain. Related Data Home Medications Medication Instructions Recorded Confirmed vitamin with calcium 1 tab PO DAILY 12/10/21 12/10/22 no.72-iron 27 mg-folic acid 1 mg tablet ( Vitamins Plus Low Iron) Previous Rx's Medication Instructions Recorded tranexamic acid 650 mg tablet 650 mg PO Q8H #30 tabs 09/09/22 ibuprofen 400 mg tablet 400 mg PO TID PRN pain #30 tabs 10/12/22 fluticasone propionate 50 1 spray intranasal BID 30 days #16 10/22/22 mcg/actuation nasal grams spray,suspension prednisone 20 mg tablet 40 mg (2 x 20 mg) PO DAILY 4 days 12/10/22 #8 tabs triamcinolone acetonide 0.5 % 1 appl topical BID 10 days #15 12/10/22 topical cream grams fkllpffdhx-kkfxmtufdhguk-qxrotokj 1 tab PO Q6H PRN pain #30 tabs 12/29/22 50 mg-325 mg-40 mg tablet ondansetron 4 mg disintegrating 4 mg PO Q6-8H PRN nausea and 12/29/22 tablet vomiting #15 tabs sumatriptan succinate 50 mg tablet 50 mg PO Q2H PRN migraine headache 12/29/22 (Imitrex) #10 tabs oxycodone 5 mg capsule 5 mg PO TID PRN pain 3 days #9 caps 05/08/23 prednisone 20 mg tablet 40 mg (2 x 20 mg) PO DAILY 5 days 05/08/23 #10 tabs Allergies Allergy/AdvReac Type Severity Reaction Status Date / Time terbinafine [TERBINAFINE] Allergy Severe ANAPHYLAXIS Verified 05/08/23 10:57 sulfamethoxazole Allergy Angioedema Verified 05/08/23 10:57 [From Bactrim] trimethoprim [From Bactrim] Allergy Angioedema Verified 05/08/23 10:57 Review of Systems Review of Systems: Right lower sided back pain. History of kidney stones Yes all other systems are reviewed and are negative [facility] Past Medical History Medical History Kidney stones Surgical History History of esophagogastroduodenoscopy (EGD) Hx of cholecystectomy Family History Family History Mother Diabetes HTN (hypertension) Paternal Grandfather HTN (hypertension) Paternal Grandmother HTN (hypertension) Maternal Grandfather HTN (hypertension) Maternal Grandfather HTN (hypertension) Diabetes Maternal Grandmother HTN (hypertension) Social History Social History Household Members: Family Housing: House Alcohol intake: never Patient Tobacco Use Status: Never used Tobacco Advance Directives: No service: No Current occupational status: employed 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, 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 Exam ED Vital Signs: Vital Signs - 24 hr 05/08/23 10:54 Temperature 97.3 F Pulse Rate 88 Respiratory Rate 18 Blood Pressure 147/95 H Pulse Oximetry 99 Oxygen Delivery Method Room Air BMI result Body Mass Index 33.6 Const General: cooperative, healthy appearing, comfortable, no acute distress, well developed, alert, awake and Physically active Orientation/consciousness: oriented to person, oriented to place, oriented to time and patient oriented x3 HENMT Head: Yes normal to inspection, Yes No palpable skull fracture present, Yes normocephalic, Yes atraumatic and No abrasion Eyes General: appearance normal, both eyes and all related structures Neck Neck: Yes normal visual inspection, Yes full ROM, Yes no lymphadenopathy, Yes no meningeal signs, Yes trachea midline, Yes supple, No anterior neck swelling and No tender Chest Chest palpation & inspection: normal inspection of the chest and normal palpation of entire chest wall Resp Effort & Inspection: normal respiratory effort and able to speak in complete sentences Auscultation: clear to auscultation bilaterally Cardio Jugular venous distension: no JVD Heart sounds: S1 normal heart sound present and S2 normal heart sound present GI Inspection: Yes normal to inspection Palpation (GI): Soft to palpation, not firm, nontender, no guarding and not rigid Back/Spine/Pelvis Back: back tenderness (right lower lumbar muscular spine.) Back/spine/pelvis image: 1. positive for tenderness on palpation. Negative for crepitus, ecchymosis, or deformity. Motor, neuro, and vascular exam intact. Negative for erythema Neuro General: oriented to person, oriented to place, oriented to time, patient oriented x3, gait normal, tone normal, moves all extremities, Normal light touch and pain sensation, no meningeal signs, no focal motor deficits, CN's II-XI intact bilaterally and normal sensation to monofilament Extrem General: Yes normal to inspection and Yes full ROM Psych Appearance: grossly normal, well kempt and not disheveled Medications Administered Discontinued Medications Generic Name Dose Route Start Last Admin Trade Name Freq PRN Reason Stop Dose Admin Ketorolac Tromethamine 30 mg 05/08/23 15:20 05/08/23 15:28 Ketorolac Tromethamine 30 Mg/Ml Vial IM 05/08/23 15:21 30 mg ONCE ONE Administration Oxycodone HCl 5 mg 05/08/23 17:35 05/08/23 17:54 Oxycodone Hcl Immed Release 5 Mg Tablet PO 05/08/23 17:36 5 mg ONCE ONE Administration Medical Decision Making Medical Decision Making [facility] Narrative: 27-year-old female history of rhabdomyolysis, dyspepsia, tendinitis, cervical radiculopathy, pyelonephritis presents to the ED right lower muscular back pain on movement going down leg. Patient has history of kidney stones. Patient states no dysuria, hematuria, nausea, or vomiting. Due to slight bloody urine patient was sent for CT scan which showed 3 mm infrarenal stone which is same kidney stones in july of 2022. UA negative for signs of infection. CT scan results was discuused with patient and drawing labs were discussed with patient to check kidney function, electrolytes, and rest CBC due to kidney stones. Patient prefer to follow up with her PCP tomorrow and not do labs. UNlikely patient has RENETTA due to size and location of kidney stones and unlikiely patient has sepesis, urine negative and vital signs stable. But labs were still offereed. Back pain most likely muscular. Patient will be discharged with pain medication. Not suspecting caudina equina, epidural abscess, urosepsis, sepsis, RENETTA, rhambodmylsos, or spinal fracture Differential Diagnosis Differential Diagnoses: The differential diagnosis associated with the presentation includes (Back pain, kidney stones, UTI, Pylenophritis) Lab Data MDM Lab Attestation statement: I reviewed the patient's lab results. Labs: Lab Results 05/08/23 Range/Units 14:03 Urine Color Yellow Urine Appearance Cloudy Urine pH 7.5 (5.0-9.0) Ur Specific Reynolds 1.015 (1.005-1.025) Urine Protein Negative (Neg-Trace) mg/dL Urine Glucose (UA) Negative (Negative) mg/dL Urine Ketones Negative (Negative) mg/dL Urine Blood Trace H (Negative) Urine Nitrite Negative (Negative) Ur Leukocyte Esterase Negative (Negative) Urine RBC 0-2 (0-2) /HPF Urine WBC 0-5 (0-5) /HPF Ur Squamous Epith Cells 0-2 (0-2) /HPF Urine Bacteria None Seen (None Seen) Hyaline Casts 0-2 (0-2) /LPF Urine Test NEGATIVE (NEGATIVE) Independent Interpretation I performed an independent interpretation of an: CT Scan Radiology Impression Discussion of test interpretation with radiology: I have reviewed the radiologist's reading. External Record Review External record reviewed: Other (Prior ED visit) Discharge Plan Discharge Clinical Impression: Back pain, Kidney stone, Mesenteric adenitis Patient Disposition: Home, Self-Care Instructions: Kidney Stones (ED), Mesenteric Adenitis (ED), Back Pain (ED) Additional Instructions: please follow-up with your primary care provider. Return to the ED immediately for any hematuria, dysuria, flank pain, fever, chills, nausea, vomiting, urinary / bowel incontinence, worsening back pain, or any other concerning symptoms. Prescriptions: New oxycodone 5 mg capsule 5 mg PO TID PRN (Reason: pain) 3 Days Qty: 9 0RF Rx Instructions: Partial Fill upon patient request. prednisone 20 mg tablet 40 mg PO DAILY 5 Days Qty: 10 0RF No Action Vitamin Plus Low Iron 27 mg iron- 1 mg tablet 1 tab PO DAILY tranexamic acid 650 mg Tablet 650 mg PO Q8H Qty: 30 1RF ibuprofen 400 mg tablet 400 mg PO TID PRN (Reason: pain) Qty: 30 0RF sumatriptan succinate [Imitrex] 50 mg tablet 50 mg PO Q2H PRN (Reason: migraine headache) Qty: 10 0RF Rx Instructions: do not exceed 2 doses per 24 hrs nhwfmfhtxf-qrexjjfikuzoe-qwds 50-325-40 mg tablet 1 tab PO Q6H PRN (Reason: pain) Qty: 30 0RF ondansetron 4 mg tablet,disintegrating 4 mg PO Q6-8H PRN (Reason: nausea and vomiting) Qty: 15 0RF fluticasone propionate 50 mcg/actuation spray,suspension 1 spray intranasal BID 30 Days Qty: 16 0RF Rx Instructions: administer into each nostril prednisone 20 mg tablet 40 mg PO DAILY 4 Days Qty: 8 0RF triamcinolone acetonide 0.5 % cream 1 appl topical BID 10 Days Qty: 15 0RF Referrals: Rigo Escudero MD [Physician] - (Right kidney stone 3mm not obstrcutive) Stand Alone Forms: Work/School Release Interventions: ED Discharge Assessment Last Done: 05/08/23 18:01 Discharge Date/Time: 05/08/23 18:03 Print Language: Kosovan
--- NOTE | 2023-05-08 17:35 | PC.NURSE ---
Patient used call [place], reports worsening lower back pain. States that pain is primarily in the middle of her lower back, worse when laying down. KATARZYNA Stanley aware, en route to bedside to speak with patient at this time.
[2023-05-08] MEDS: oxyCODONE HCl Immed Release 5 MG TABLET PO (17:54)
== END 2023-05-08 18:03 | disposition home or self-care (01) ==
PROVIDERS: Physician Assistant; Emergency Provider Emergency Medicine; PCP General Practice
DX: N20.0 Calculus of kidney (principal); I88.0 Nonspecific mesenteric lymphadenitis; M54.50 Low back pain, unspecified
CPT/HCPCS: 74176; 81001; 81025; 96372; 99283; 99284; J1885

== ENCOUNTER 2023-07-13 18:07 | Outpatient (REF) | payer OTHER, SELFPAY ==
--- NOTE | ~2023-07-13 | MR_ITS ---
EXAMINATION: MR LUMBAR SPINE WITHOUT CONTRAST CLINICAL INFORMATION: Lower back pain COMPARISON: None TECHNIQUE: MRI of the lumbar spine was obtained using routine sequences without contrast. FINDINGS: Normal anatomic alignment. No suspicious marrow signal or focal osseous lesion. No significant marrow edema. The vertebral body heights are maintained. The intervertebral discs are of normal height and signal. The conus medullaris terminates at the level of L1-L2. The distal spinal cord is normal in appearance. The cauda equina nerve roots appear normal. No significant abnormalities of the paraspinal musculature. Limited evaluation of the intra-abdominal structures without significant abnormalities. 3 cm right ovarian and likely physiologic cyst which does not require further imaging follow-up. The abdominal aorta is of normal contour and caliber. SPINAL LEVELS: L1-L2: No significant spinal canal or neuroforaminal narrowing. L2-L3: No significant spinal canal or neuroforaminal narrowing. L3-L4: No significant spinal canal or neuroforaminal narrowing. L4-L5: No significant spinal canal or neuroforaminal narrowing. L5-S1: No significant spinal canal or neuroforaminal narrowing. MR/MR lumbar spine wo con IMPRESSION: Unremarkable examination.
== END 2023-07-13 18:08 | disposition home or self-care (01) ==
LOC: HO.MRI 18:07
PROVIDERS: PCP General Practice; Visit Provider General Practice
DX: M54.50 Low back pain, unspecified (principal)
CPT/HCPCS: 72148

== ENCOUNTER 2023-08-10 12:14 | Outpatient (AMB) | payer OTHER, SELFPAY ==
[2023-08-10 12:16] VITALS: BP 120/90; PULSE 89; TEMP 36.6; O2SAT 97; BMI 33.8
--- NOTE | 2023-08-10 12:16 | MHC.OFFWIV ---
Intake Vital Signs 08/10/23 12:16 Height 5 ft 2 in Weight 185 lb BMI 33.8 BP 120/90 H Blood Pressure Location Lt brachial Position Sitting Pulse 89 Pulse Source Pulse Oximeter Temp 97.8 F Temp Source Temporal Artery Scan Pulse Oximetry (%) 97 Oxygen Delivery Method Room Air Intake Visit Reasons: EP tight chest congestion dry cough (lobby) Intake Note: pt is here today for tight chest congestion dry cough started 3 weeks ago Patient Tobacco Use Status: Never used Tobacco Allergies terbinafine [TERBINAFINE] Allergy (Severe, Verified 08/10/23 12:17) ANAPHYLAXIS sulfamethoxazole [From Bactrim] Allergy (Verified 08/10/23 12:17) Angioedema trimethoprim [From Bactrim] Allergy (Verified 08/10/23 12:17) Angioedema Do you need a note to return to daycare/school/sports/work: Yes HPI EP tight chest congestion dry cough (lobby) HPI Details This is a 27 year old female patient who presents today with a 3 week history of dry cough, and nasal/chest congestion. Reports a fever the first few days of the illness however no fever since then. Denies any GI symptoms. Denies known exposure to sick contacts. Reports she is up coughing all night. Uses rescue inhaler without significant relief. Has also trief otc cold/flu products without benefit. [facility] Medical History Kidney stones Surgical History History of esophagogastroduodenoscopy (EGD) Hx of cholecystectomy Family History Mother Diabetes HTN (hypertension) Paternal Grandfather HTN (hypertension) Paternal Grandmother HTN (hypertension) Maternal Grandfather HTN (hypertension) Maternal Grandfather HTN (hypertension) Diabetes Maternal Grandmother HTN (hypertension) Social History Household Members: Family Housing: House Alcohol intake: never Patient Tobacco Use Status: Never used Tobacco service: No Current occupational status: employed 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, 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 Review of Systems Const All systems reviewed & are unremarkable except as noted in HPI and below Physical Exam Vital Signs: Last Vital Signs Temp 97.8 F 08/10/23 12:16 Pulse 89 08/10/23 12:16 BP 120/90 H 08/10/23 12:16 Pulse Ox 97 08/10/23 12:16 Oxygen Delivery Method Room Air 08/10/23 12:16 BMI result Body Mass Index 33.8 Const General: cooperative, healthy appearing and no acute distress HEENT Head: Yes normal to inspection Ears: hearing grossly normal bilaterally General nose exam: Normal external nose present and Nasal discharge present mucoid Face and sinus: Yes normal facial exam Mouth: Normal oral and palatal mucosa present Throat: Yes posterior oropharynx normal Neck Neck: Yes no lymphadenopathy Resp Effort & Inspection: normal respiratory effort and Actively coughing Quality: dry Auscultation: rhonchi upper bilaterally (mild) Cardio Palpation: normal PMI Rate: regular rate Rhythm: regular rhythm Skin General skin exam: no rashes or lesions noted Extrem General: Yes capillary refill normal and Yes no clubbing, cyanosis or edema Psych Appearance: grossly normal Mental Status: mental status grossly normal Speech and movement: Normal speech and movement present Assessment & Plan Assessment & Plan (1) Upper respiratory infection: Code(s): J06.9 - Acute upper respiratory infection, unspecified Qualifiers: URI type: unspecified URI Qualified Code(s): J06.9 - Acute upper respiratory infection, unspecified Plan: Will start on abx, short course of prednisone, and benzonatate. We reviewed indications, use, and possible s/e of all medications. She can continue to use albuterol inhaler as needed. If she does not improve with treatment, she can return to the clinic for further evaluation. She agrees to plan. Medications: New prednisone 20 mg PO BID 6 tabs 0RF 3 days J06.9 - Acute upper respiratory infection, unspecified doxycycline hyclate 100 mg PO BID 14 tabs 0RF 7 days J06.9 - Acute upper respiratory infection, unspecified benzonatate Take twice a day as needed for your cough. 100 mg PO BID PRN 14 caps 0RF cough 7 days R05.9 - Cough, unspecified Coding Level of Care Code Est Pt Level 3 (99752) Diagnoses Upper respiratory tract infection, unspecified type J06.9 URI type: unspecified URI
== END 2023-08-10 13:08 | disposition home or self-care (01) ==
PROVIDERS: PCP General Practice; Visit Provider Nurse Practitioner Family
DX: J06.9 Acute upper respiratory infection, unspecified (principal)
CPT/HCPCS: 99213

== ENCOUNTER 2023-09-20 16:11 | Outpatient (REF) | payer OTHER, SELFPAY ==
[2023-09-20 18:35] LABS: Vitamin D 25-OH Total 37.6 ng/mL (>30)
[2023-09-20 18:54] LABS: Folate 11.4 ng/mL (> or = 4.0); Vitamin B12 860 pg/mL (200-900)
[2023-09-26 18:49] LABS: Vitamin A 36 mcg/dL (38-98)
== END 2023-09-20 16:12 | disposition home or self-care (01) ==
LOC: HO.HHCL 16:11
PROVIDERS: Visit Provider General Practice
DX: R68.89 Other general symptoms and signs (principal)
CPT/HCPCS: 36415; 82306; 82607; 82746; 84252; 84590

== ENCOUNTER 2023-09-22 08:44 | Outpatient (REF) | payer OTHER, SELFPAY ==
[2023-09-28 21:28] LABS: Vitamin B2 (Riboflavin) 20.5 nmol/L (6.2-39.0)
== END 2023-09-22 08:45 | disposition home or self-care (01) ==
LOC: HO.LAB 08:44
PROVIDERS: PCP General Practice; Visit Provider General Practice
DX: R68.89 Other general symptoms and signs (principal)
CPT/HCPCS: 36415; 84252

== ENCOUNTER 2024-05-05 10:34 | Emergency (ER) | payer BC, SELFPAY ==
[2024-05-05 10:45] VITALS: BP 115/71; PULSE 81; RESP 14; TEMP 36.9; O2SAT 97; BMI 33.6
--- NOTE | 2024-05-05 11:39 | ED.HA ---
HPI - Headache General Chief Complaint: Headache Stated Complaint: migraine Time Seen by Provider: 05/05/24 11:25 Source: patient and family Mode of arrival: ambulatory Limitations: language barrier History of Present Illness ED Provider: Dr. Bon Leon HPI Narrative: 28-year-old female with a history of migraine headaches who presents emergency department for evaluation headache x5 days. Patient states that the headache came on gradually 5 days prior. She states that it got progressively worse over time. The pain is located in her mid forehead and right side of her head. She describes the pain is a constant, fullness. She had associated nausea with no vomiting. She had photophobia and phonophobia. She also seeing scotoma which she describes as fire flies in her vision. She denied weakness but states she gets occasional numbness in both hands. She denied fever, chills, cough, chest pain, shortness of breath. Patient states that her usual migraine headache as a throbbing sensation in his relieved by her migraine cocktail (Reglan, Benadryl and Toradol) however these medications have not been effective. She states that her headache is 9/10, she was concerned that the pain had not gone away so she came to the emergency department for evaluation. Related Data Previous Rx's ?Medication ?Instructions ?Recorded tranexamic acid 650 mg tablet 650 mg PO Q8H #30 tabs 09/09/22 ibuprofen 400 mg tablet 400 mg PO TID PRN pain #30 tabs 10/12/22 fluticasone propionate 50 1 spray intranasal BID 30 days #16 10/22/22 mcg/actuation nasal grams spray,suspension triamcinolone acetonide 0.5 % 1 appl topical BID 10 days #15 12/10/22 topical cream grams vhorimiqap-bnpttdxgkpmpc-ywdczutg 1 tab PO Q6H PRN pain #30 tabs 12/29/22 50 mg-325 mg-40 mg tablet ondansetron 4 mg disintegrating 4 mg PO Q6-8H PRN nausea and 12/29/22 tablet vomiting #15 tabs sumatriptan succinate 50 mg tablet 50 mg PO Q2H PRN migraine headache 12/29/22 (Imitrex) #10 tabs benzonatate 100 mg capsule 100 mg PO BID PRN cough 7 days #14 08/10/23 caps doxycycline hyclate 100 mg tablet 100 mg PO BID 7 days #14 tabs 08/10/23 prednisone 20 mg tablet 20 mg PO BID 3 days #6 tabs 08/10/23 Allergies Allergy/AdvReac Type Severity Reaction Status Date / Time terbinafine [TERBINAFINE] Allergy Severe ANAPHYLAXIS Verified 05/05/24 10:46 sulfamethoxazole Allergy Angioedema Verified 05/05/24 10:46 [From Bactrim] trimethoprim [From Bactrim] Allergy Angioedema Verified 05/05/24 10:46 Review of Systems Review of Systems: Yes all other systems are reviewed and are negative [facility] Past Medical History [facility] Narrative: Social history: She denies tobacco, alcohol and drug use Medical History Kidney stones Surgical History History of esophagogastroduodenoscopy (EGD) Hx of cholecystectomy Family History Family History Mother Diabetes HTN (hypertension) Paternal Grandfather HTN (hypertension) Paternal Grandmother HTN (hypertension) Maternal Grandfather HTN (hypertension) Maternal Grandfather HTN (hypertension) Diabetes Maternal Grandmother HTN (hypertension) Social History Social History Household Members: Family Housing: House Alcohol intake: never Patient Tobacco Use Status: Never used Tobacco Advance Directives: No Advance Directives Information Provided: No service: No Current occupational status: employed 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 EENT: PERRL, Lids normal, sclera normal, conjunctiva normal, nose normal , ears normal, throat without erythema or exudates Neck: Supple, no adenopathy Lung: breath sounds symmetric, no wheezing, rales or rhonchi Chest: symmetric movement, nontender Heart: regular rate and rhythm, normal S1, S2 no murmurs or rubs Abdomen: soft, non-tender, nondistended, normal bowel sounds Back: no vertebral tenderness, no CVAT Extremities: no deformities, moves all extremities symmetrically Neuro: Awake, alert, oriented, normal speech, cranial nerves intact, moves all extremities symmetrically, cerebellar with normal rapid finger movement normal heel to galeano, normal finger to nose to finger testing. Psych: Pleasant, cooperative Medications Administered Discontinued Medications Generic Name Dose Route Start Last Admin Trade Name Freq PRN Reason Stop Dose Admin Sodium Chloride 1,000 mls @ 999 mls/hr 05/05/24 11:40 05/05/24 12:05 Ns IV 05/05/24 12:40 999 mls/hr .Q1H1M STA Administration Ketorolac Tromethamine 15 mg 05/05/24 13:01 05/05/24 13:10 Ketorolac Tromethamine 15 Mg/Ml Vial IVPUSH 05/05/24 13:02 15 mg ONCE STA Administration Morphine Sulfate 4 mg 05/05/24 12:02 05/05/24 12:06 Morphine Sulfate 4 Mg/Ml Cartridge IVPUSH 05/05/24 12:03 4 mg ONCE STA Administration Protocol Morphine Sulfate 4 mg 05/05/24 13:01 05/05/24 13:13 Morphine Sulfate 4 Mg/Ml Cartridge IVPUSH 05/05/24 13:02 4 mg ONCE STA Administration Protocol Ondansetron HCl 4 mg 05/05/24 12:02 05/05/24 12:06 Ondansetron Hcl 4 Mg/2 Ml Vial IVPUSH 05/05/24 12:03 4 mg ONCE ONE Administration Medical Decision Making Medical Decision Making MDM Narrative: 28-year-old female with a history of migraine headaches who presents emergency department for evaluation headache x5 days, gradual onset, constant, pressure-like pain 9/10 at its worse associated with nausea, photophobia, phonophobia scotoma. Vital signs were normal. Physical examination did reveal tenderness palpation of her scalp but otherwise was unremarkable with a normal neurologic exam. Differential diagnosis: ?Includes but is not limited to headache, migraine headache, subarachnoid hemorrhage, meningitis Patient was initially treated with the following: Morphine 4 mg IV, Zofran 4 mg IV normal saline x1 L Course: Patient was treated with a total of morphine 4 mg IV x3, Toradol 15 mg IV x1 and Zofran 4 mg IV. She also received normal saline x1 L. The patient's symptoms are caused by a migraine syndrome. I did discuss this with her. She was advised to go home and rest. I told her that she can try her migraine cocktail of Reglan, Benadryl and Toradol at home if her symptoms come back. She was given printed and verbal instructions and discharged. Admission/Observation Consideration of admission/observation: Escalation of care including admission/observation considered (Yes) Chronic Conditions Patient?s care impacted by: Other (Migraine syndrome) Discharge Plan Discharge Clinical Impression: Migraine syndrome Patient Disposition: Home, Self-Care Additional Instructions: Your symptoms are consistent with a migraine syndrome. You were treated today with morphine 4 mg IV x3 doses, Toradol 15 mg IV x1 dose, Zofran 4 mg IV x1 dose and normal saline x1 L. Go home and rest today and to not try to do anything strenuous. Continue using your migraine cocktail (Reglan, Benadryl and Toradol) as prescribed by your provider. Follow-up with your doctor in 2 days. Prescriptions: No Action tranexamic acid 650 mg Tablet 650 mg PO Q8H Qty: 30 1RF ibuprofen 400 mg tablet 400 mg PO TID PRN (Reason: pain) Qty: 30 0RF sumatriptan succinate [Imitrex] 50 mg tablet 50 mg PO Q2H PRN (Reason: migraine headache) Qty: 10 0RF Rx Instructions: do not exceed 2 doses per 24 hrs hsoutdstuu-tdysulslxyboa-vctl 50-325-40 mg tablet 1 tab PO Q6H PRN (Reason: pain) Qty: 30 0RF ondansetron 4 mg tablet,disintegrating 4 mg PO Q6-8H PRN (Reason: nausea and vomiting) Qty: 15 0RF prednisone 20 mg tablet 20 mg PO BID 3 Days Qty: 6 0RF doxycycline hyclate 100 mg tablet 100 mg PO BID 7 Days Qty: 14 0RF benzonatate 100 mg capsule 100 mg PO BID PRN (Reason: cough) 7 Days Qty: 14 0RF Rx Instructions: Take twice a day as needed for your cough. fluticasone propionate 50 mcg/actuation spray,suspension 1 spray intranasal BID 30 Days Qty: 16 0RF Rx Instructions: administer into each nostril triamcinolone acetonide 0.5 % cream 1 appl topical BID 10 Days Qty: 15 0RF Print Language: Serbian
[2024-05-05] MEDS: 0.9 % Sodium Chloride 1,000 ML 999 ML IV (12:05)
[2024-05-05] MEDS: ondansetron HCL 4 MG/2 ML VIAL IVPUSH (12:06)
[2024-05-05] MEDS: Morphine Sulfate 4 MG/ML CARTRIDGE IVPUSH ×3 (12:06→14:41)
[2024-05-05] MEDS: Ketorolac Tromethamine 15 MG/ML VIAL IVPUSH (13:10)
[2024-05-05 14:31] VITALS: BP 91/56; PULSE 63; RESP 14; TEMP 36.1; O2SAT 98
[2024-05-05 14:43] VITALS: BP 115/71; PULSE 81; RESP 14; TEMP 36.9; O2SAT 97
== END 2024-05-05 14:44 | disposition home or self-care (01) ==
PROVIDERS: Emergency Provider Emergency Medicine Emergency Medical Services; PCP General Practice
DX: G43.909 Migraine, unspecified, not intractable, without status migrainosus (principal); R11.0 Nausea; H53.149 Visual discomfort, unspecified; R20.0 Anesthesia of skin; Z79.899 Other long term (current) drug therapy
CPT/HCPCS: 96361; 96374; 96375; 96376; 99284; J1885; J2270; J2405

== ENCOUNTER 2024-06-24 16:34 | Outpatient (REF) | payer BC, SELFPAY ==
--- NOTE | ~2024-06-24 | CT_ITS ---
CLINICAL HISTORY: change in migraines, increasing forgetfulness CT head without contrast Comparison: CT/SR - BRAIN WO IV CONTRAST [id number] - 05/12/16 11:26 EST Findings: No intra-axial mass, midline shift, hydrocephalus, or acute hemorrhage. No significant atrophy-like change or white matter disease. There is interval development of left maxillary sinusitis. The orbits are within normal limits. No skull fracture. IMPRESSION: 1. No acute intracranial findings. 2. Interval development of left maxillary sinusitis. This document has been electronically signed by: Vitor Garcia MD on 06/25/2024 13:18:36
--- OUTSIDE RECORDS SUMMARY | 2024-06-24 19:53 | XMS_ITS | Encounter Summary ---
Author Organization [employer] Address [address] [facility] [address] [place] [address] Care Team Providers Care Commercial Specialist Name Role Phone Soniya Colon MD Primary Care Provider Reason for Visit * Reason Onset Date Comments ER Follow-up 05/07/2024 Encounter Details Date Type Department Care Team ([facility] st Contact Info) Description 05/07/[address] [facility] [address] [place], [place] [phone] Soniya Colon MD [address] [place], [place] [phone] ER Follow-up Social History Tobacco Use Types Packs/Day Years Used Date Smoking Tobacco: Never Passive Smoke Exposure: Never Smokeless Tobacco: Never Alcohol Use Standard Drinks/Week Comments Not Currently 0 (1 standard drink = 0.6 oz pur e alcohol) Depression Answer Date Recorded Patient Health Questionnaire-9 Score 4 03/25/2024 Patient Health Questionnaire-9 Score 4 03/25/2024 Last PHQ-9: Questionnaire Data Not on file 1 Housing Stability Answer Date Recorded What is your housing situation today? I have jolene lemus 04/12/[address] you li ve. Do you have problems with any of the following? None of the above 04/12/2023 Food Insecurity Answer Date Recorded Within the past 12 months, y ou worried that your food would run out before you got money to buy more: Never True 04/12/2023 Within the past 12 months,th e food you bought just didn't last and you didn't have enough money to get more: Never True Transportation Answer Date Recorded In the past 12 months, has l ack of transportation kept you from medical appts, meetings, work or from getting things needed for daily living? No 09/12/2023 Utilities Answer Date Recorded In the past 12 months, has t he electric, gas, oil or water company threatened to shut off services in your home? No 04/12/2023 Depression Answer Date Recorded Patient Health Questionnaire-2 Score 0 03/25/2024 Comments No Sex and Gender Information Value Date Recorded Sex Assigned at Female 03/28/2022 10:16 AM EDT Legal Sex Female 10:16 AM EDT Gender Identity Female 03/28/2022 10:16 AM EDT Sexual Orientation Straight 03/28/2022 10 :16 AM EDT documented as of this encounter Miscellaneous Notes * Telephone Encounter - Kaitlyn Lozano RN - 05/07/2024 12:53 PM EST Triage call Pt reports ED visit 05/05/24 @ [facility] for Migraine headache. Report is on the chart. Pt wasgiven IV MS x3 and toradol x1. Pt reports headache did go away and is back today. Pt reports vomiting yesterday and nausea today. Pt describes headache as a throbbing pain starts in middle of forehead and radiates to back of head. Pt does report vision is effected. ASK apt with Dr. Haque 05/17/24@ 1200pm. Pt agrees with disposition and home care is reviewed. Insurance is verified as active prior to booking. Protocol Used: Headache (Adult) Protocol-Based Disposition: See in Office or Video Visit within 2 Weeks Video visit not offered Positive Triage Question: * Headache is a chronic symptom (recurrent or ongoing AND lasting > 4 weeks) * All higher-acuity triage questions were negative Care Advice Discussed: * Reassurance and Education - Migraine Headache * Pain Medicine for Migraine * Pain Medicines * Pain Medicines - Extra Notes and Warnings * Rest for Migraine Headache * Cold Pack for Headache * Headache Diary * Reasons To Call Back - Severe headache lasts over 2 hours after pain medicine - Headache lasts over 72 hours - Stiff neck occurs (can't touch chin to chest) - You become worse * Telephone Encounter - Estela Nice - 05/07/2024 12:10 PM EST Patient calling to report ED visit on : Date: 05/05/24 Hospital: [facility] Seen for: migraine Symptomatic Yes Patient advised will forward to triage nurse for follow up. Please contact at [phone] documented in this encounter Plan of Treatment Upcoming Encounters Date Type Department Care Team (Late st Contact Info) Description 10/01/2024 1:30 PM EDT Office Visit [facility] [address] [place] [address] IndioKatelyn iqbal, OD [address] [place] [address] documented as of this encounter Visit Diagnoses Not on filedocumented in this encounter Additional Health Concerns Assessment Noted Time PHQ-9 Depression Total Score: 4 03/25/20 24 2:12 PM EDT documented as of this encounter Care Teams Commercial Specialist Relationship Specialty Start Date End Date Soniya Colon MD [address] [place] [address] PCP - General Family Medicine 01/19/21 documented as of this encounter
--- OUTSIDE RECORDS SUMMARY | 2024-06-24 19:53 | XMS_ITS | Encounter Summary ---
Author Organization [employer] Address [address] [facility] [address] [place] [address] Care Team Providers Care Decoration Checker Name Role Phone Soniya Colon MD Primary Care Provider [phone] Reason for Visit * Reason Comments Mini Mental Encounter Details Date Type Department Care Team (Latest Contact Info) Description 05/30/2024 1:30 PM EST Clinical Support [facility] [address] [place] [address] Margot Moreno, RN [address] [place] [address] Migraine without aura and with status migrainosus, not intractable Social History Tobacco Use Types Packs/Day Years [...] is your housing situation today? I have jolenemanjit lemus 04/12/[address] you [...] AM EDT documented as of this encounter Progress Notes * Margot Moreno RN - 05/30/2024 1:30 PM EST S: Pt is here for a mini mental examination. At last PCP visit it was noted that pt has difficulty with both short and group home memory, patient reports issues stated approximately 6 months ago. Patient reports family has also noticed memory issues in patient. Pt is not currently on any medication for memory issues. O: Mini mental exam performed, pt appeared calm during examination. Patient scored a 28/30. A: Impaired Cognitive Function. P: Pt advised results will be discussed with PCP for further evaluation. Pt advised to follow up with PCP. Pt agrees with plan and verbalized understanding. Margot Moreno RN documented in this encounter Plan of Treatment Upcoming Encounters Date Type Department Care Team (Late st Contact Info) Description 10/01/2024 1:30 PM EDT Office Visit [facility] [address] [place] [address] Indio, Katelyn, OD [address] [place] [address] documented as of this encounter Visit Diagnoses Diagnosis Migraine without aura and with status migrainosus, not intractable documented in this encounter Additional Health Concerns Assessment Noted Time PHQ-9 Depression Total Score: 4 03/25/20 24 2:12 PM EDT documented as of this encounter Care Teams Decoration Checker Relationship Specialty Start Date End Date Soniya Colon MD [address] [place] [address] PCP - General Family Medicine 01/19/21 documented as of this encounter
--- OUTSIDE RECORDS SUMMARY | 2024-06-24 19:53 | XMS_ITS | Encounter Summary ---
Author Organization [employer] [facility] Address [address] [place] [address] [address] [place] [address] Care Team Providers Care Oil Pipeline Dispatcher Name Role Phone Soniya Colon MD Primary Care Provider [phone] Encounter Details Date Type Department Care Team (Late Contact Info) Description 04/25/2022 Abstract [facility] [address] [place] [address] Soniya Colon MD [address] [place] [address] Social History Tobacco Use Types Packs/Day Years Used Date Smoking Tobacco: Never Assessed Comments Unknown Sex and Gender Information Value Date Recorded Sex Assigned at Female 03/28/2022 10:16 AM EDT Legal Sex Female 10:16 AM EDT Gender Identity Female 03/28/2022 10:16 AM EDT Sexual Orientation Straight 03/28/2022 10 :16 AM EDT documented as of this encounter Plan of Treatment Upcoming Encounters Date Type Department Care Team (Late st Contact Info) Description 10/01/2024 1:30 PM EDT Office Visit [facility] [address] [place] [address] Indio, Katelyn, OD [address] [place] [address] documented as of this encounter Visit Diagnoses Not on filedocumented in this encounter Care Teams Oil Pipeline Dispatcher Relationship Specialty Start Date End Date Soniya oClon MD [address] [place] [address] PCP - General Family Medicine 8/24/21 documented as of this encounter
--- OUTSIDE RECORDS SUMMARY | 2024-06-24 19:53 | XMS_ITS | Encounter Summary ---
Author Organization [employer] Address [address] [facility] [address] [place] [address] Care Team Providers Care Health Insurance Assessor Name Role Phone Soniya Colon MD Primary Care Provider [phone] Encounter Details Date Type Department Care Team (Latest Contact Info) Description 05/30/2024 Travel Social History Tobacco Use Types Packs/Day Years [...] Description 10/01/2024 1:30 PM EDT Office Visit [facility] [address] [place] [address] Indio, Katelyn, OD [address] [place] [address] documented as of this encounter Visit Diagnoses Not on filedocumented in this encounter Additional Health Concerns Assessment Noted Time PHQ-9 Depression Total Score: 4 03/25/20 24 2:12 PM EDT documented as of this encounter Care Teams Health Insurance Assessor Relationship Specialty Start Date End Date Soniya Colon MD [address] [place] [address] PCP - General Family Medicine 01/19/21 documented as of this encounter
--- OUTSIDE RECORDS SUMMARY | 2024-06-24 19:53 | XMS_ITS | Encounter Summary ---
Author Organization [employer] Address [address] [place] [address] [address] [place] [address] Care Team Providers Care Household Appliance Assembler Name Role Phone Soniya Colon MD Primary Care Provider Reason for Visit * Reason Onset Date Comments Referral 05/04/2022 Encounter Details Date Type Department Care Team ([facility] st Contact Info) Description 05/04/2022 Telephone [facility] [address] [place], [place] [phone] Soniya Colon MD [address] [place], [place] [phone] Referral Social History Tobacco Use Types Packs/Day Years Used Date Smoking Tobacco: Never Smokeless Tobacco: Never Depression Answer Date Recorded Patient Health Questionnaire-9 [...] Patient Health Questionnaire-2 Score 0 03/25/2024 Comments Unknown Sex and Gender Information Value Date Recorded Sex Assigned at Female 03/28/2022 10:16 AM EDT Legal Sex Female 10:16 AM EDT Gender Identity Female 03/28/2022 10:16 AM EDT Sexual Orientation Straight 03/28/2022 10 :16 AM EDT COVID-19 Exposure Response Date Recorded In the last 10 days, have yo u been in contact with someone who was confirmed or suspected to have Coronavirus/COVID-19? No / Unsure 10/17/2022 3:39 PM EDT documented as of this encounter Miscellaneous Notes * Telephone Encounter - Estela Nice - 05/04/2022 10:52 AM EST Tc from pt requesting a referral for [facility], located at [address] [place] [address]. Pt gave fax number [phone]. Please contact at [phone]. PCP Dr. Colon. documented in this encounter Plan of Treatment Upcoming Encounters Date Type Department Care Team (Late st Contact Info) Description 10/01/2024 1:30 PM EDT Office Visit [facility] [address] [place] [address] Indio, Katelyn, OD [address] [place] [address] documented as of this encounter Visit Diagnoses Not on filedocumented in this encounter Care Teams Household Appliance Assembler Relationship Specialty Start Date End Date Soniya Colon MD [address] [place] [address] PCP - General Family Medicine 01/19/21 documented as of this encounter
--- OUTSIDE RECORDS SUMMARY | 2024-06-24 19:53 | XMS_ITS | Encounter Summary ---
Author Organization [employer] Address [address] [place] [address] [address] [place] [address] Care Team Providers Care Field Operator Name Role Phone Soniya Colon MD Primary Care Provider [phone] Reason for Visit * Reason Onset Date Comments triage 10/10/2022 Encounter Details Date Type Department Care Team ([facility] st Contact Info) Description 10/10/2022 Telephone [facility] [address] [place], [place] [phone] Soniya Colon MD [address] [place], [place] [phone] triage Social History Tobacco Use Types Packs/Day Years Used Date Smoking Tobacco: Never Smokeless Tobacco: Never Alcohol Use Standard Drinks/Week Comments Not Currently 0 (1 standard drink = 0.6 oz pur e alcohol) Comments Unknown Sex and Gender Information Value [...] suspected to have Coronavirus/COVID-19? No / Unsure 10/11/2022 6:50 PM EDT documented as of this encounter Miscellaneous Notes * Telephone Encounter - Kaitlyn Lozano RN - 10/10/2022 12:43 PM EDT Triage call Pt reports middle back pain for last few days. Pt is on vacation in [place] and will return 10/11 afternoon. Pt reports taking apap/motrin alternating every 6 hours and using muscle relaxer but, not effecting pain. Pt reports radiation of pain to left leg. Pt is offered apt 10/17 but,requests to be seen sooner. Pt will come to [facility] upon arrival home 10/11. Home care reviewed . Pt agrees with disposition. Protocol Used: Back Pain (Adult) Protocol-Based Disposition: See in Office or Video Visit within 3 Days Video visit not offered Positive Triage Questions: * Moderate back pain (e.g., interferes with normal activities) and present > 3 days * Pain radiates into the thigh or further down the leg * Patient wants to be seen * All higher-acuity triage questions were negative Care Advice Discussed: * Reassurance and Education - Back Pain * Cold or Heat * Sleep * Activity * Pain Medicines * Pain Medicines - Extra Notes and Warnings * Reasons To Call Back - Fever occurs - Numbness or weakness occurs, or bowel/bladder problems - Pain begins to shoot into the leg - Pain persists over 2 weeks - Pain becomes worse - You become worse * Telephone Encounter - Kaden Encinas - 10/10/2022 12:32 PM EDT Symptom: Back Pain - Not From Injury Outcome: Schedule an appointment to be seen within 3 days Reason: Caller denied all higher acuity questions The caller accepted this outcome documented in this encounter Plan of Treatment Upcoming Encounters Date Type Department Care Team (Late st Contact Info) Description 10/01/2024 1:30 PM EDT Office Visit [facility] [address] [place] [address] Katelyn Borjas, OD [address] [place] [address] documented as of this encounter Visit Diagnoses Not on filedocumented in this encounter Care Teams Field Operator Relationship Specialty Start Date End Date Soniya Colon MD [address] [place] [address] PCP - General Family Medicine 01/19/21 documented as of this encounter
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
--- OUTSIDE RECORDS SUMMARY | 2024-06-24 19:54 | XMS_ITS | Encounter Summary ---
Author Organization [employer] [facility] Address [address] [place] [address] 7 [place] [address] Care Team Providers Care Six Color Press Operator Name Role Phone Soniya Colon MD Primary Care Provider [phone] Encounter Details Date Type Department Care Team (Late st Contact Info) Description 01/10/2023 Orders Only [facility] MEDICINE [address] [place], [place] [phone] Soniya Colon MD [address] [place], [place] [phone] Migraine without aura and with status migrainosus, not intractable (Primary Dx) Social History Tobacco Use Types Packs/Day Years [...] 10/01/2024 1:30 PM EDT Office Visit [facility] OPTOMETRY [address] [place], [place] [phone] Indio, Katelyn, OD [address] [place], [place] [phone] documented as of this encounter Visit Diagnoses Diagnosis Migraine without aura and with status migrainosus, not intractable- Primary documented in this encounter Care Teams Six Color Press Operator Relationship Specialty Start Date End Date Soniya Colon MD [address] [place] [address] PCP - General Family Medicine 01/19/21 documented as of this encounter
--- OUTSIDE RECORDS SUMMARY | 2024-06-24 19:54 | XMS_ITS | Encounter Summary ---
Author Organization [employer] Address [address] [place] [address] 7t [place] [address] Care Team Providers Care Tariff Publishing Agent Name Role Phone Soniya Colon MD Primary Care Provider [phone] Reason for Visit * Reason Comments Med Refill Encounter Details Date Type Department Care Team (Late Contact Info) Description 07/06/2022 Refill [facility] MED & PEDS [address] [place], [place] [phone] Sohail Rouse MD [address] [place] [address] Social History Tobacco Use Types Packs/Day Years Used Date Smoking Tobacco: Never Smokeless Tobacco: Never Comments Unknown Sex and Gender Information Value [...] suspected to have Coronavirus/COVID-19? No / Unsure 06/30/2022 1:07 PM EST documented as of this encounter Plan of Treatment Upcoming Encounters Date Type Department Care Team (Late Contact Info) Description 10/01/2024 1:30 PM EDT Office Visit [facility] OPTOMETRY [address] [place] [address] Indio, Katelyn, OD [address] [place] [address] documented as of this encounter Visit Diagnoses Not on filedocumented in this encounter Care Teams Tariff Publishing Agent Relationship Specialty Start Date End Date Soniya Colon MD [address] [place] [address] PCP - General Family Medicine 01/19/21 documented as of this encounter
--- OUTSIDE RECORDS SUMMARY | 2024-06-24 19:54 | XMS_ITS | Encounter Summary ---
Author Organization [employer] Address [address] [facility] 7t [place] [address] Care Team Providers Care Felt Cementer Name Role Phone Soniya Colon MD Primary Care Provider [phone] Encounter Details Date Type Department Care Team ([facility] st Contact Info) Description 10/16/2023 Orders Only [facility] MEDICINE [address] [place], [place] [phone] Soniya Colon MD [address] [place], [place] [phone] Social History Tobacco Use Types Packs/Day Years Used Date Smoking Tobacco: Never Passive Smoke Exposure: Never Smokeless Tobacco: Never Alcohol Use Standard Drinks/Week Comments Not Currently 0 (1 standard drink = 0.6 oz pur e alcohol) Depression Answer Date Recorded Patient Health Questionnaire-9 Score 13 04/12/2023 Patient Health Questionnaire-9 Score 13 04/12/2023 Last PHQ-9: Questionnaire Data Not on file 1 06/12/2022 Housing Stability Answer Date Recorded What is [...] Answer Date Recorded Patient Health Questionnaire-2 Score 4 04/12/2023 Comments No Sex and Gender Information Value [...] Description 10/01/2024 1:30 PM EDT Office Visit [facility] OPTOMETRY [address] [place] [address] Indio, Katelyn, OD [address] [place] [address] documented as of this encounter Visit Diagnoses Not on filedocumented in this encounter Additional Health Concerns Assessment Noted Time PHQ-9 Depression Total Score: 13 023 3:47 PM EST documented as of this encounter Care Teams Felt Cementer Relationship Specialty Start Date End Date Soniya Colon MD [address] [place] [address] PCP - General Family Medicine 01/19/21 documented as of this encounter
--- OUTSIDE RECORDS SUMMARY | 2024-06-24 19:54 | XMS_ITS | Clinical Summary ---
Author Organization [employer] [facility] Address [address] [place] [address] Care Team Providers Care Acid Tank Cleaner Name Role Phone Unavailable Primary Care Provider Unavailabl e Social History Tobacco Use Types Packs/Day Years Used Date Smoking Tobacco: Never Assessed Sex and Gender Information Value Date Recorded Sex Assigned at Not on file Gender Identity Not on file Sexual Orientation Not on file Plan of Treatment Health Maintenance Due Date Last Done Comments DTaP,Tdap,and Td Vaccines (1 - Tdap) 09/02/2015 Hepatitis B Vaccines (1 of 3 - 19+ 3-dose series) 09/02/2015 Cervical Cancer Screening: P ap Smear 2017 Depression Screening 04/26/2022 HIV Screening 04/26/2022 Hepatitis C Screening 04/26/2022 Social Influencers of Health Screening 04/26/2022 COVID-19 Vaccine ( - 2023-2 5 season) 2024 Influenza Vaccine (#1) 2024 HIB Vaccines Aged Out No longer eligi ble based on patient's age to complete this topic HPV Vaccines Aged Out No longer eligi ble based on patient's age to complete this topic Hepatitis A Vaccines Aged Out No long er eligible based on patient's age to complete this topic IPV Vaccines Aged Out No longer eligi ble based on patient's age to complete this topic MMR Vaccines Aged Out No longer eligi ble based on patient's age to complete this topic Meningococcal ACWY Vaccine Aged Out N o longer eligible based on patient's age to complete this topic Pneumococcal Vaccine: Pediat rics (0 to 5 Years) and At-Risk Patients (6 to 64 Years) Aged Out No longer eligible b ased on patient's age to complete this topic RSV Immunization Patients Un kennedy 20 months Aged Out No longer eligible b ased on patient's age to complete this topic Varicella Vaccines Aged Out No longer eligible based on patient's age to complete this topic
== END 2024-06-24 16:35 | disposition home or self-care (01) ==
LOC: HO.CT 16:34
PROVIDERS: PCP Family Medicine; Visit Provider Family Medicine
DX: G43.909 Migraine, unspecified, not intractable, without status migrainosus (principal); R68.89 Other general symptoms and signs
CPT/HCPCS: 70450

== ENCOUNTER → 2024-06-24 16:35 | Outpatient (BNV) | payer BC, SELFPAY | PROVIDERS: PCP Family Medicine; Visit Provider Radiology Diagnostic Radiology | DX: J01.00 Acute maxillary sinusitis, unspecified (principal) | CPT/HCPCS: 70450 ==

== ENCOUNTER 2024-07-26 16:43 | Outpatient (REF) | payer BC, SELFPAY ==
--- OUTSIDE RECORDS SUMMARY | 2024-07-26 18:07 | XMS_ITS | Encounter Summary ---
Author Organization [employer] Address [address] [place] [address] 7t [place] [address] Care Team Providers Care Gusset Stitcher Name Role Phone Soniya Colon MD Primary Care Provider [phone] Reason for Visit * Reason Onset Date Comments recall 07/04/2024 Encounter Details Date Type Department Care Team ([facility] st Contact Info) Description 07/04/2024 Telephone [facility] MEDICINE [address] [place], [place] [phone] Adelina Jennings MA recall Social History Tobacco Use Types Packs/Day Years [...] encounter Miscellaneous Notes * Telephone Encounter - Adelina Jennings MA - 07/04/2024 1:11 PM EST T/C placed spoke with pt, pt agreed to come in on 09/17/24 at 11am documented in this encounter Plan of Treatment Upcoming Encounters Date Type Department Care Team (Late st Contact Info) Description 09/17/2024 11:00 AM EDT Procedure Visit [facility] [address] [place] [address] Soniya Colon MD [address] [place] [address] 10/01/2024 1:30 PM EDT Office Visit [facility] OPTOMETRY [address] [place] [address] Indio, Katelyn, OD [address] [place] [address] documented as of this encounter Visit Diagnoses Not on filedocumented in this encounter Additional Health Concerns Assessment Noted Time PHQ-9 Depression Total Score: 4 03/25/20 24 2:12 PM EDT documented as of this encounter Care Teams Gusset Stitcher Relationship Specialty Start Date End Date Soniya Colon MD [address] [place] [address] PCP - General Family Medicine 01/19/21 documented as of this encounter
--- OUTSIDE RECORDS SUMMARY | 2024-07-26 18:07 | XMS_ITS | Encounter Summary ---
Author Organization [employer] Address [address] [facility] 7t [place] [address] Care Team Providers Care Security Shift Supervisor Name Role Phone Soniya Colon MD Primary Care Provider [phone] Reason for Visit * Reason Onset Date Comments Results 06/28/2024 Encounter Details Date Type Department Care Team ([facility] st Contact Info) Description 06/28/2024 Telephone [facility] MEDICINE [address] [place], [place] [phone] Margot Moreno RN [address] [place] [address] Results Social History Tobacco Use Types Packs/Day Years [...] encounter Miscellaneous Notes * Telephone Encounter - Margot Moreno RN - 06/28/2024 9:21 AM EST Ordering provider reviewed head CT results. Per ordering provider (Dr. Haque) no abnormalities however it did show L maxillary sinusitis. If patient is symptomatic, Dr. Haque reports patient can be Rx'd flonase. TC placed to patient [phone] to inform of above message. Patient reports she is s/s however she has been using flonase (purchased OTC) and allergy medications with no effect. Patient advised RN would discuss with Dr. Haque to discuss further POC and return call to patient. Patient verbalizedunderstanding. Patient to f/u PRN. documented in this encounter Plan of Treatment Upcoming Encounters Date Type Department Care Team (Late st Contact Info) Description 09/17/2024 11:00 AM EDT Procedure Visit [facility] MEDICINE [address] [place] [address] Soniya Colon MD [address] [place] [address] 10/01/2024 1:30 PM EDT Office Visit [facility] OPTOMETRY [address] [place] [address] Katelyn Borjas, OD [address] [place] [address] documented as of this encounter Visit Diagnoses Not on filedocumented in this encounter Additional Health Concerns Assessment Noted Time PHQ-9 Depression Total Score: 4 03/25/20 24 2:12 PM EDT documented as of this encounter Care Teams Security Shift Supervisor Relationship Specialty Start Date End Date Soniya Colon MD [address] [place] [address] PCP - General Family Medicine 01/19/21 documented as of this encounter
--- OUTSIDE RECORDS SUMMARY | 2024-07-26 18:07 | XMS_ITS | Encounter Summary ---
Author Organization [facility] Address [address] [place] [address] 7t [place] [address] Care Team Providers Care Glass Polisher Name Role Phone Soniya Colon MD Primary Care Provider [phone] Encounter Details Date Type Department Care Team (Late st Contact Info) Description 04/25/2022 Abstract [facility] [address] [place] [address] Soniya Colon MD [address] [place] [address] Social History Tobacco Use Types Packs/Day Years [...] Description 09/17/2024 11:00 AM EDT Procedure Visit [facility] [address] [place] [address] Soniya Colon MD [address] [place] [address] 10/01/2024 1:30 PM EDT Office Visit [facility] [address] [place] [address] Katelyn Borjas, OD [address] [place] [address] documented as of this encounter Visit Diagnoses Not on filedocumented in this encounter Care Teams Glass Polisher Relationship Specialty Start Date End Date Soniya Colon MD [address] [place] [address] PCP - General Family Medicine 01/19/21 documented as of this encounter
--- OUTSIDE RECORDS SUMMARY | 2024-07-26 18:07 | XMS_ITS | Encounter Summary ---
Author Organization [employer] Address [address] 7t [place] [address] Care Team Providers Care Drawing Box Tender Name Role Phone Soniya Colon MD Primary Care Provider [phone] Reason for Visit * Reason Comments uti symptoms Encounter Details Date Type Department Care Team ([facility] st Contact Info) Description 07/26/2024 3:20 PM EST Office Visit [facility] [address] [place], [place] [phone] Karissa Nina MD [address] [place] [address] Urinary tract infection without hematuria, site unspecified (Primary Dx) Social History Tobacco Use Types [...] AM EDT documented as of this encounter Last Filed Vital Signs Vital Sign Reading Time Taken Comments Blood Pressure 129/90 07/26/2024 3:10 PM EST Pulse 97 07/26/2024 3:10 PM EST Temperature 36.6 ??C (97.9 ??F) 07/26/2024 3:10 PM ES T Respiratory Rate 17 07/26/2024 3:10 PM EST Oxygen Saturation 97% 07/26/2024 3:10 PM EST Inhaled Oxygen Concentration - - Weight 82.7 kg (182 lb 6.4 oz) 07/26/2024 3:10 P M EST Height - - Body Mass Index 33.36 05/17/2024 12:04 PM EST documented in this encounter Progress Notes * Karissa Gonzalez MD - 07/26/2024 3:20 PM EST SUBJECTIVE: Cande Hernandez is a 28 y.o. year old female who presents for UTI symptoms . Acute Concerns: Patient reports 3 days of right flank pain, suprapubic pain and tenderness, urinary frequency, dysuria and urgency. 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 HENT: Negative. Respiratory: Negative. Cardiovascular: Negative. Genitourinary: Positive for difficulty urinating, dysuria, flank pain, frequency, pelvic pain and urgency. Negative for decreased urine volume, dyspareunia, enuresis, genital sores, hematuria, menstrual problem, vaginal bleeding, vaginal discharge and vaginal pain. OBJECTIVE: Vitals: 07/26/24 1510 BP: (!) 129/90 BP Location: Left arm Patient Position: Sitting BP Cuff Size: Adult Pulse: 97 Resp: 17 Temp: 97.9 ??F (36.6 ??C) TempSrc: Temporal SpO2: 97% Weight: 182 lb 6.4 oz (82.7 kg) Physical Exam Constitutional: Appearance: Normal appearance. Cardiovascular: Rate and Rhythm: Normal rate and regular rhythm. Pulmonary: Effort: Pulmonary effort is normal. Breath sounds: Normal breath sounds. Abdominal: General: Abdomen is flat. Palpations: Abdomen is soft. Tenderness: There is abdominal tenderness in the suprapubic area. There is right CVA tenderness. There is no left CVA tenderness. Neurological: Mental Status: She is alert. Follow Up: No follow-ups on file. Current Outpatient Medications on File Prior to Visit Medication Sig Dispense Refill acetaminophen (Tylenol) 500 MG tablet Take 2 tablets by mouth in the morning and 2 tablets at noon and 2 tablets in the evening and 2 tablets before bedtime. albuterol 108 (90 Base) MCG/ACT inhaler Inhale 2 puffs every 4 (four) hours. amitriptyline (Elavil) 10 MG tablet Take 1 tablet (10 mg) by mouth at bedtime. 30 tablet 3 benzonatate (Tessalon) 100 MG capsule TAKE 1 CAPSULE BY MOUTH TWICE A DAY NEEDED FOR COUGH FOR 7DAYS. betamethasone valerate (Valisone) 0.1 % cream Apply topically twice a day. doxycycline (Vibra-Tabs) 100 MG tablet Take 100 mg by mouth 2 times daily. fluocinolone (DermOtic) 0.01 % ear drops APPLY 5 DROPS INTO BOTH EARS TWICE A DAY fluticasone (Flonase) 50 MCG/ACT nasal spray SPRAY 1 SPRAY INTO EACH NOSTRIL TWICE A DAY FOR 30 DAYS ibuprofen 400 MG tablet Take 1 tablet by mouth in the morning and 1 tablet at noon and 1 tablet in the evening and 1 tablet before bedtime. metoclopramide (Reglan) 5 MG tablet Take 1 tablet (5 mg) by mouth if needed each day (part of migraine cocktail with benadryl) for up to 15 days. 15 tablet 0 tqtizzez-hxfkrwpqk-rwfELIKXixugb (Maxitrol) 3.5-10889-5.1 ophthalmic suspension INSTILL 1 DROP INTOAFFECTED EYE EVERY 4 HOURS FOR 7 DAYS Jepktlao-Hqnrsoxpu-DT 1 % solution instill 4 drops by otic route 3 times every day into affected ear(s) for 5-7 days udaqpray-evoexmxkl-hwgkxfnlqxqzpl (Cortisporin) 3.5-57004-4 otic suspension INSTILL 4 DROPS TO AFFECTED EAR 3 TIMES A DAY FOR 5- 7 DAYS ondansetron ODT (Zofran-ODT) 4 MG disintegrating tablet TAKE 1 TABLET BY MOUTH EVERY 6 TO 8 HOURS NEEDED FOR NAUSEA AND VOMITING oxyCODONE (Oxy-IR) 5 MG immediate release capsule TAKE 1 CAPSULE BY MOUTH 3 TIMES A DAY NEEDED FOR PAIN FOR 3 DAYS sodium chloride ([place]) 0.65 % nasal spray 2 sprays in each nostril 4x/day prn SUMAtriptan (Imitrex) 50 MG tablet TAKE 1 TABLET BY MOUTH EVERY 2 HOURS NEEDED FOR MIGRAINE HEADACHE DO NOT EXCEED 2 DOSES/24 HRS topiramate (Topamax) 50 MG tablet Take 50 mg by mouth at bedtime. Take 1/2 tab for 2 weeks, then increase to full tab if no side effects 90 tablet 1 tranexamic acid (Lysteda) 650 MG tablet tablet TAKE 1 TABLET ORALLY EVERY 8 HOURS triamcinolone (Kenalog) 0.5 % cream APPLY TO AFFECTED AREA TOPICALLY FOR 10 DAYS Vitamin A (beta carotene) 3 MG (37576 UT) tablet Take 1 tablet by mouth Once per day. 90 tablet 0 No current facility-administered medications on file prior to visit. Problem List Items Addressed This Visit UTI (urinary tract infection) - Primary Advised to drink plenty of water and do not hold the urine I will prescribe Macrobid 100 mg twice a day for 1 week UA done and culture sent patient will be contacted with results Relevant Medications nitrofurantoin, macrocrystal-monohydrate, (Macrobid) 100 MG capsule Other Relevant Orders POCT urinalysis dipstick manually resulted (Completed) Culture, Urine, Routine documented in this encounter Miscellaneous Notes * Assessment & Plan Note - Karissa Gonzalez MD - 07/26/2024 3:49 PM EST Associated Problem(s): UTI (urinary tract infection) Advised to drink plenty of water and do not hold the urine I will prescribe Macrobid 100 mg twice a day for 1 week UA done and culture sent patient will be contacted with results documented in this encounter Plan of Treatment Upcoming Encounters Date Type Department Care Team (Late st Contact Info) Description 09/17/2024 11:00 AM EDT Procedure Visit [facility] [address] [place] [address] Soniya Colon MD [address] [place] [address] 10/01/2024 1:30 PM EDT Office Visit [facility] [address] [place] [address] Katelyn Borjas, OD [address] [place] [address] Scheduled Orders Name Type Priority Associated Diagnoses Orde r Schedule Culture, Urine, Routine Microbiology Routine Urinary tract infection without hematuria, site unspecified Ordered: 07/26/2024 documented as of this encounter Procedures Procedure Name Priority Date/Time Associated Diagnosis Comments POCT URINALYSIS DIPSTICK Routine 07/26/2024 3:30 PM EST Urinary tract infection without hematuria, site unspecified documented in this encounter Results * (ABNORMAL) POCT urinalysis dipstick manually resulted (07/26/2024 3:30 PM EST) Color, UA [place] Clarity, UA Clear Glucose, UA Few 15 Comment:100 mg/dL Bilirubin, UA Few 15 Comment:Small Ketones, UA Positive Comment:Trace Spec Grav, UA 1.020 Blood, UA Negative Negative, None Detected pH, UA 5.0 Protein, UA Few 15 Comment:30 mg/dL Urobilinogen, UA 2.0 Leukocytes, UA Trace Negative, Rare, Trace Nitrite, UA Positive(A) Negative, None Detected Urine 07/26/2024 3:30 PM EST Karissa Gonzalez MD POINT OF CARE TEST EN TER/EDIT ORDERABLES Final Result documented in this encounter Visit Diagnoses Diagnosis Urinary tract infection without hematuria, site unspecified- Primary documented in this encounter Additional Health Concerns Assessment Noted Time PHQ-9 Depression Total Score: 4 03/25/20 24 2:12 PM EDT documented as of this encounter Care Teams Drawing Box Tender Relationship Specialty Start Date End Date Soniya Colon MD [address] [place] [address] PCP - General Family Medicine 01/19/21 documented as of this encounter
--- OUTSIDE RECORDS SUMMARY | 2024-07-26 18:07 | XMS_ITS | Encounter Summary ---
Author Organization [employer] Address [address] [facility] 7t [place] [address] Care Team Providers Care Certified Ethical Hacker Name Role Phone Soniya Colon MD Primary Care Provider [phone] Encounter Details Date Type Department Care Team ([facility] st Contact Info) Description 10/16/2023 Orders Only [facility] [address] [place], [place] [phone] Soniya Colon MD [address] [place], [place] [phone] Social History Tobacco Use Types Packs/Day Years [...] Description 09/17/2024 11:00 AM EDT Procedure Visit [facility] [address] [place] [address] Soniya Colon MD [address] [place] [address] 10/01/2024 1:30 PM EDT Office Visit [facility] OPT[facility] [address] [place] [address] [place], Katelyn, OD [address] [place] [address] documented as of this encounter Visit Diagnoses Not on filedocumented in this encounter Additional Health Concerns Assessment Noted Time PHQ-9 Depression Total Score: 13 023 3:47 PM EST documented as of this encounter Care Teams Certified Ethical Hacker Relationship Specialty Start Date End Date Soniya Colon MD [address] [place], [place] [phone] PCP - General Family Medicine 01/19/21 documented as of this encounter
--- OUTSIDE RECORDS SUMMARY | 2024-07-26 18:07 | XMS_ITS | Encounter Summary ---
Author Organization [employer] Address [address] [place] [address] 7t [place] [address] Care Team Providers Care Certified Physician'S Assistant Name Role Phone Soniya Colon MD Primary Care Provider [phone] Reason for Visit * Reason Onset Date Comments triage 10/10/2022 Encounter Details Date Type Department Care Team ([facility] st Contact Info) Description 10/10/2022 Telephone [facility] [address] [place], [place] [phone] Soniya Colon MD 230 [place], [place] [phone] triage Social History Tobacco Use Types Packs/Day [...] few days. Pt is on vacation in [place] and will return 10/11 afternoon. Pt reports taking apap/motrin alternating every 6 hours and using muscle relaxer but, not effecting pain. Pt reports radiation of pain to left leg. Pt is offered apt 10/17 but,requests to be seen sooner. Pt will come to [facility] upon arrival home 10/11. Home care reviewed [...] Description 09/17/2024 11:00 AM EDT Procedure Visit [facility] [address] [place] [address] Soniay Colon MD [address] [place], [place] [phone] 10/01/2024 1:30 PM EDT Office Visit [facility] [address] [place] [address] Katelyn Borjas, LISSETH [address] [place] [address] documented as of this encounter Visit Diagnoses Not on filedocumented in this encounter Care Teams Certified Physician'S Assistant Relationship Specialty Start Date End Date Soniya Colon MD [address] [place] [address] PCP - General Family Medicine 01/19/21 documented as of this encounter
--- OUTSIDE RECORDS SUMMARY | 2024-07-26 18:07 | XMS_ITS | Clinical Summary ---
Author Organization [facility] Address [address] [place] [address] Care Team Providers Care Shafting Cleaner Name Role Phone Unavailable Primary Care Provider Unavailabl e Social History Tobacco Use Types Packs/Day Years Used Date Smoking Tobacco: Never Assessed Comments Unknown Sex and Gender Information Value Date Recorded Sex Assigned at Not on file Legal Sex Female 10:44 AM EST Gender Identity Not on file Sexual Orientation Not on file Plan of Treatment Health Maintenance Due Date Last Done Comments DTaP,Tdap,and Td Vaccines (1 - Tdap) 09/02/2015 Hepatitis B Vaccines (1 of 3 - 19+ 3-dose series) 09/02/2015 Cervical Cancer Screening: P ap Smear 2017 Depression Screening 04/26/2022 HIV Screening 04/26/2022 Hepatitis C Screening 04/26/2022 Social Influencers of Health Screening 04/26/2022 COVID-19 Vaccine (2023-2 5 season) 2024 Influenza Vaccine (#1) 2024 [...] patient's age to complete this topic Meningococcal B Vacine Aged Out No lo nger eligible based on patient's age to complete [...]
--- OUTSIDE RECORDS SUMMARY | 2024-07-26 18:07 | XMS_ITS | Clinical Summary ---
Author Organization [employer] Address [address] [place] [address] 7t [place] [address] Care Team Providers Care Die Maker Name Role Phone Soniya Colon MD Primary Care Provider Allergies Active Allergy Reactions Criticality Noted Date Comments [place] Flavoring Agent (Non-Screening) Anaphylaxis High 11/10/2023 Sulfamethoxazole [...] for 5-7 days 2 Active sodium chloride ([place]) 0.65 % nasal spray 2 sprays in each nostril 4x/day prn 2 Active fluticasone (Flonase) 50 MCG/ACT nasal spray SPRAY 1 SPRAY INTO EACH NOSTRIL TWICE A DAY FOR 30 DAYS 3 Active neomycin-polymyxin -hydrocortisone (Cortisporin) 3.5-87718-7 otic suspension INSTILL 4 DROPS TO AFFECTED [...] A DAY 3 Active neomycin-polymyxin -dexAMETHasone (Maxitrol) 3.5-84963-1.1 ophthalmic suspension INSTILL 1 DROP INTO AFFECTED [...] Active Vitamin A (beta carotene) 3 MG (67024 UT) tablet Take 1 tablet by mouth [...] 30 tablet 3 4 11/14/19 25 Active nitrofurantoin, macrocrystal-monoh ydrate, (Macrobid) 100 MG capsuleIndications :Urinary tract infection without hematuria, site unspecified Take 1 capsule (100 mg) by mouth 2 times daily for 7 days. 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 Would like pharmacological assistance, we reviewed [...] Encounters Date Type Department Care Team Description 07/26/2024 3:20 PM EST Office Visit [facility] [address] [place] [address] Karissa Nina MD Urinary tract infection without hematuria, site unspecified (Primary Dx) 07/04/2024 Telephone [facility] MED[facility]INE [address] [place] [address] Adelina Jennings [place] recall 06/28/[address] [address] Margot Moreno, RN Results 05/30/2024 1:30 PM EST Clinical Support [address] [address] Margot Moreno RN Migraine without aura and with status migrainosus, not intractable 05/30/2024 Travel 05/17/2024 12:00 PM EST Office Visit [facility] [address] [place] [address] Meri Haque DO Nonintractable chronic migraine (Primary Dx); Forgetfulness 05/17/2024 Travel 05/10/2024 Travel 05/07/2024 Telephone [facility] [address] [place] [address] Soniya Colon MD ER Follow-up from Last 3 Months Immunizations Name Administration [...] 07/16/2021, 1,09/26/2020 Pfizer Covid-19 Vaccine 12+ benitez-sucrose ([place]af[place] Cap) 07/16/2021 Tdap 05/16/2019,01/12/2009 Varicella 12/29/2015,01/04/2000,09/25/1997 Family [...] oz) 07/26/2024 3:10 P M EST Height 157.5 cm (5' 2 ) 05/17/2024 12:04 PM EST Body Mass Index 33.36 05/17/2024 12:04 PM EST Plan of Treatment Upcoming Encounters Date Type Department Care Team (Late st Contact Info) Description 09/17/2024 11:00 AM EDT Procedure Visit [facility] [address] [place] [address] Soniya Colon MD [address] [place] [address] 10/01/2024 1:30 PM EDT Office Visit [facility] [address] [place] [address] Katelyn Borjas, OD [address] [place] [address] Health Maintenance Due Date Last Done Comments Dental Oral Exam 1996 Dental Prophylaxis 1996 Dental X-Ray: Bitewings 1996 Dental X-Ray: Full Mouth 1996 HIV Screening 1996 Family Planning (PISQ) 09/02/2011 Hepatitis C Screening 2014 COVID-19 Vaccine ( season) 2024 02/11/2022, 07/16/2021, 07/16/2021, Additional history exists Influenza Vaccine (#1) 2024 2, 02/11/2022, 03/04/2020, Additional history exists Pap Smear [...] 04/28, 01/12/2009 Hepatitis A Vaccines Completed 04/14/2016, 12/27/19 15 Meningococcal Vaccine Aged Out 05/16/2019, 009 No longer eligible based on patient's age to complete this topic Pneumococcal Vaccine: Pediatrics (0 to 5 Years) and At-Risk Patients (6 to 49) Years) Aged Out No longer eligible based [...] Urinary tract infection without hematuria, site unspecified CT HEAD WO CONTRAST Routine 06/25/2024 1 :18 PM EST Nonintractable chronic migraine Forgetfulness LIPID PANEL, STANDARD Routine 11/17/2021 2:57 PM EDT THINPREP PAP Routine 02/10/2021 4:04 PM EDT from Last 3 Months or Most Recently Relevant to Health Maintenance Results * (ABNORMAL) POCT urinalysis dipstick manually resulted (07/26/2024 3:30 PM EST) Color, UA [place] Clarity, UA Clear Glucose, UA Few 15 Comment:100 mg/dL Bilirubin, UA Few 15 Comment:Small Ketones, UA Positive Comment:Trace Spec Grav, UA 1.020 Blood, UA Negative Negative, None Detected pH, UA 5.0 Protein, UA Few 15 Comment:30 mg/dL Urobilinogen, UA 2.0 Leukocytes, UA Trace Negative, Rare, Trace Nitrite, UA Positive(A) Negative, None Detected Urine 07/26/2024 3:30 PM EST us Karissa Gonzalez MD POINT OF CARE TEST EN TER/EDIT ORDERABLES Final Result * CT Head w/o Contrast (06/25/2024 1:18 PM EST) Anatomical Region Laterality Modality Head, Neck Computed Tomogra phy 06/25/2024 1:18 PM EST Narrative 06/25/2024 1:20 PM EST ? [facility] ?[address] ?[place] [address] ? CT Scan Report ? Signed ? Patient: Cande Hernandez ?MR#: [id number] ?? [id number] ? : 1995 ?Acct:[id number] ? Age/Sex: 28 / F ?ADM Date: //25 ? Loc: HO.CT ? Attending Bhakti Haque DO ? Ordering Physician: Meri Haque DO ?? Date of Service: 06/24/24 ?? Procedure(s): CT head/brain wo IV con ?? Accession Number(s): [id number] ? cc: Meri Haque DO ? Report Number: ?? [id number]: Total DLP = ??804.00 mGy-cm ? CLINICAL HISTORY: change in migraines, increasing forgetfulness ? CT head without contrast ? Comparison: CT/SR - BRAIN WO IV CONTRAST [id number] - 05/12/16 11:26 EST ? Findings: ?? No intra-axial mass, midline shift, hydrocephalus, or acute hemorrhage. ?? No significant atrophy-like change or white matter disease. ? There is interval development of left maxillary sinusitis. ?? The orbits are within normal limits. ?? No skull fracture. ? IMPRESSION: ?? 1. No acute intracranial findings. ?? 2. Interval development of left maxillary sinusitis. ? This document has been electronically signed by: Vitor Garcia MD on ?? 06/25/2024 13:18:36 ? Dictated By: ?Vitor Garcia MD ? Signed By: ?<Electronically signed by Vitor Garcia MD in OV> ? 06/25/24 1319 ? DD/ 1318 ? TD/TT: 06/25/24 1318 ? Keg Raiser: ? Procedure Note Donteresater, Image - 06/25/[address] [place] [address] [address] Scan Report Signed Patient: Cande Hernandez KMR#: [id number] : 1995Acct:[id number] Age/Sex: Date: 06/24/24 Loc: HO.CT Attending Dr: Meri Haque DO Ordering Physician: Meri Haque DO Date of Service: 06/24/24 Procedure(s): CT head/brain wo IV con Accession Number(s): [id number] cc: Meri Haque DO Report Number: [id number]: Total DLP = 804.00 mGy-cm CLINICAL HISTORY: change in migraines, increasing forgetfulness CT head without contrast Comparison: CT/SR - BRAIN WO IV CONTRAST [id number] - 05/12/16 11:26 EST Findings: No intra-axial mass, midline shift, hydrocephalus, or acute hemorrhage. No significant atrophy-like change or white matter disease. There is interval development of left maxillary sinusitis. The orbits are within normal limits. No skull fracture. IMPRESSION: 1. No acute intracranial findings. 2. Interval development of left maxillary sinusitis. This document has been electronically signed by: Vitor Garcia MD on 06/25/2024 13:18:36 Dictated By: Vitor Garcia MD Signed By: <Electronically signed by Vitor Garcia MD in OV> 06/25/241318 DD/ 17 TD/TT: 06/25/241317 Keg Raiser: Meri Garland DO IMG CT PROCEDURES Final Resu lt * (ABNORMAL) LIPID PANEL, STANDARD (11/17/2021 2:57 [...] ?? Alcon SS et al. SASCHA. 2013;310(19): 3202-5328 ?? (http://education.Otelic/faq/CQZ707) Non-HDL Cholesterol 140(H) <130 mg/dL (calc) [facility] Comment: For patients with diabetes plus 1 major ASCVD risk ?? factor, treating to a non-HDL-C goal of <100 mg/dL ?? (LDL-C of <70 mg/dL) is considered a therapeutic ?? option. Triglycerides 190(H) <150 mg/dL [facility] 11/17/2021 2:57 PM EDT us Soniya Colon MD LAB BLOOD ORDERABLES Final Res ult [facility] [address] [place] [address], * THINPREP PAP (02/10/2021 4:04 PM EDT) Clinical Information: None given [facility] COMMENT SEE COMMENT [facility] [...] historic and ?? current clinical information. ?? Computer Numeric Control Setter : SEE COMMENT [facility] Comment: REGINAL[place], CT(ASCP) CT screening location: [address] ??[address] Interpretation/R esult: Negative for intraepithelial lesion or malignancy. [facility] LMP: 02/03/2021 [facility] Prev. BX: NONE GIVEN [facility] Prev. PAP: NONE GIVEN [facility] Review Computer Numeric Control Setter : SEE COMMENT [facility] Comment: KN, CT(ASCP) CT screening location: [address] ??[address] SOURCE: None given [facility] Statement Of Adequacy: SEE COMMENT [facility] Comment: Satisfactory for evaluation. Endocervical/transformation zone component present. Partially obscuring inflammation Partially obscuring blood 02/10/2021 4:04 PM EDT [facility] ORDERABLES Final Result [facility] [address] from Last 3 Months or Most Recently Relevant to Health Maintenance Insurance [facility] HMO [facility] D[facility] - HSN PARTIAL (MEDICAID) Care Teams Die Maker Relationship Specialty Start Date End Date Soniya Colon MD [address] [place] [id number] PCP - General Family Medicine 01/19/21
--- OUTSIDE RECORDS SUMMARY | 2024-07-26 18:07 | XMS_ITS | Encounter Summary ---
Author Organization [facility] Address [address] [place] [address] 7t [place] [address] Care Team Providers Care Pediatric Physical Therapist Name Role Phone Soniya Colon MD Primary Care Provider [phone] Encounter Details Date Type Department Care Team (Late st Contact Info) Description 01/10/2023 Orders Only [facility] MEDICINE [address] [place], [place] [phone] Soniya Colon MD [address] [place], [place] [phone] Migraine without aura and with status migrainosus, [...] Description 09/17/2024 11:00 AM EDT Procedure Visit [facility] MEDICINE [address] [place], [place] [phone] Soniya Colon MD [address] [place], [place] [phone] 10/01/2024 1:30 PM EDT Office Visit [facility] OPTOMETRY [address] [place] [address] Katelyn Borjas, OD [address] [place], [place] [phone] documented as of this encounter Visit Diagnoses Diagnosis Migraine without aura and with status migrainosus, not intractable- Primary documented in this encounter Care Teams Pediatric Physical Therapist Relationship Specialty Start Date End Date Soniya Colon MD [address] [place], [place] [phone] PCP - General Family Medicine 01/19/21 documented as of this encounter
--- OUTSIDE RECORDS SUMMARY | 2024-07-26 18:07 | XMS_ITS | Encounter Summary ---
Author Organization [employer] Address [address] [place] [address] 7t [place] [address] Care Team Providers Care Monitoring And Evaluation Advisor Name Role Phone Soniya Colon MD Primary Care Provider [phone] Reason for Visit * Reason Comments Med Refill Encounter Details Date Type Department Care Team (Late st Contact Info) Description 07/06/2022 Refill [facility]EDS [address] [place], [place] [phone] Sohail Rouse MD [address] [place] [address] [phone] Social History Tobacco Use Types Packs/Day Years [...] Description 09/17/2024 11:00 AM EDT Procedure Visit [facility] MEDICINE [address] [place] [address] [phone] Soniya Colno MD [address] [place] [address] [phone] 10/01/2024 1:30 PM EDT Office Visit [facility] OPTOMETRY [address] [place] [address] Katelyn Borjas, LISSETH [address] [place] [address] documented as of this encounter Visit Diagnoses Not on filedocumented in this encounter Care Teams Monitoring And Evaluation Advisor Relationship Specialty Start Date End Date Soniya Colon MD [address] [place], [place] [phone] PCP - General Family Medicine 01/19/21 documented as of this encounter
== END 2024-07-26 16:44 | disposition home or self-care (01) ==
LOC: HO.HHCLNP 16:43
PROVIDERS: Visit Provider Internal Medicine
DX: N39.0 Urinary tract infection, site not specified (principal)
CPT/HCPCS: 87086

== ENCOUNTER 2024-09-17 16:35 | Outpatient (REF) | payer BC, SELFPAY ==
--- OUTSIDE RECORDS SUMMARY | 2024-09-17 18:54 | XMS_ITS | Encounter Summary ---
Author Organization [employer] Address [address] [facility] 7t [place] [address] Care Team Providers Care Oil Rig Driller Name Role Phone Soniya Colon MD Primary Care Provider Encounter Details Date Type Department Care Team (Latest Contact Info) Description 09/17/2024 Travel Social History Tobacco Use Types Packs/Day [...] Description 10/01/2024 1:30 PM EDT Office Visit [facility] OPTOMETRY [address] [place] [address] Indio, Katelyn, OD [address] [place] [address] documented as of this encounter Visit Diagnoses Not on filedocumented in this encounter Additional Health Concerns Assessment Noted Time PHQ-9 Depression Total Score: 4 03/25/20 24 2:12 PM EDT documented as of this encounter Care Teams Oil Rig Driller Relationship Specialty Start Date End Date Soniya Colon MD [address] [place] [address] PCP - General Family Medicine 01/19/21 documented as of this encounter
--- OUTSIDE RECORDS SUMMARY | 2024-09-17 18:54 | XMS_ITS | Encounter Summary ---
Author Organization [employer] Address [address] [place] [address] 7t [place] [address] Care Team Providers Care Director Of Housing And Energy Services Name Role Phone Soniya Colon MD Primary Care Provider [phone] Reason for Visit * Reason Onset Date Comments triage 10/10/2022 Encounter Details Date Type Department Care Team ([facility] st Contact Info) Description 10/10/2022 Telephone [facility] MEDICINE [address] [place], [place] [phone] Soniya Colon MD [address] [place], [place] [phone] triage Social History Tobacco Use Types Packs/Day [...] few days. Pt is on vacation in [place] and will return 10/11 afternoon. Pt reports taking apap/motrin alternating every 6 hours and using muscle relaxer but, not effecting pain. Pt reports radiation of pain to left leg. Pt is offered apt 10/17 but,requests to be seen sooner. Pt will come to [facility] upon arrival home 10/11. Home care [...] Description 10/01/2024 1:30 PM EDT Office Visit [facility] OPTOMETRY [address] [place] [address] Katelyn Borjas, OD [address] [place] [address] documented as of this encounter Visit Diagnoses Not on filedocumented in this encounter Care Teams Director Of Housing And Energy Services Relationship Specialty Start Date End Date Soinya Colon MD [address] [place] [address] PCP - General Family Medicine 01/19/21 documented as of this encounter
--- OUTSIDE RECORDS SUMMARY | 2024-09-17 18:54 | XMS_ITS | Clinical Summary ---
Author Organization [employer] Address [address] [place] [address] 7t [place] [address] Care Team Providers Care Acid Regenerator Name Role Phone Soniya Colon MD Primary Care Provider [phone] Allergies Active Allergy Reactions Criticality Noted Date Comments Black Cisne Flavoring Agent (Non-Screening) Anaphylaxis High 11/10/2023 Sulfamethoxazole [...] the evening and 2 tablets before bedtime. 03/24/20 22 Active albuterol 108 (90 Base) MCG/ACT inhaler Inhale 2 puffs every 4 (four) hours. 03/24/20 22 Active betamethasone valerate (Valisone) 0.1 % cream Apply topically twice a day. 01/20/20 22 Active ibuprofen 400 MG tablet Take 1 tablet by mouth in the morning and 1 tablet at noon and 1 tablet in the evening and 1 tablet before bedtime. 01/20/20 22 Active Neomycin-Polymyxin -HC 1 % solution instill 4 drops by otic route 3 times every day into affected ear(s) for 5-7 days 03/24/20 22 Active sodium chloride ([place]) 0.65 % nasal spray 2 sprays in each nostril 4x/day prn 03/24/20 22 Active fluticasone (Flonase) 50 MCG/ACT nasal spray SPRAY 1 SPRAY INTO EACH NOSTRIL TWICE A DAY FOR 30 DAYS 10/23/19 23 Active neomycin-polymyxin -hydrocortisone (Cortisporin) 3.5-39958-0 otic suspension INSTILL 4 DROPS TO AFFECTED EAR 3 TIMES A DAY FOR 5- 7 DAYS 03/24/20 22 Active tranexamic acid (Lysteda) 650 MG tablet tablet TAKE 1 TABLET ORALLY EVERY 8 HOURS 09/10/19 23 Active triamcinolone (Kenalog) 0.5 % cream APPLY TO AFFECTED AREA TOPICALLY FOR 10 DAYS 12/11/19 23 Active metoclopramide (Reglan) 5 MG tablet Take 1 tablet (5 mg) by mouth if needed each day (part of migraine cocktail with benadryl) for up to 15 days. 15 tablet 12/31/19 23 Active fluocinolone (DermOtic) 0.01 % ear drops APPLY 5 DROPS INTO BOTH EARS TWICE A DAY 02/17/20 23 Active neomycin-polymyxin -dexAMETHasone (Maxitrol) 3.5-06966-6.1 ophthalmic suspension INSTILL 1 DROP INTO AFFECTED EYE EVERY 4 HOURS FOR 7 DAYS 04/04/20 23 Active ondansetron ODT (Zofran-ODT) 4 MG disintegrating tablet TAKE 1 TABLET BY MOUTH EVERY 6 TO 8 HOURS NEEDED FOR NAUSEA AND VOMITING 12/30/19 23 Active SUMAtriptan (Imitrex) 50 MG tablet TAKE 1 TABLET BY MOUTH EVERY 2 HOURS NEEDED FOR MIGRAINE HEADACHE DO NOT EXCEED 2 DOSES/24 HRS 12/30/19 23 Active oxyCODONE (Oxy-IR) 5 MG immediate release capsule TAKE 1 CAPSULE BY MOUTH 3 TIMES A DAY NEEDED FOR PAIN FOR 3 DAYS 05/08/20 23 Active benzonatate (Tessalon) 100 MG capsule TAKE 1 CAPSULE BY MOUTH TWICE A DAY NEEDED FOR COUGH FOR 7 DAYS. 08/10/19 24 Active doxycycline (Vibra-Tabs) 100 MG tablet Take 100 mg by mouth 2 times daily. 08/10/19 24 Active Vitamin A (beta carotene) 3 MG (47906 UT) tablet Take 1 tablet by mouth Once per day. 90 tablet 10/16/19 24 Active topiramate (Topamax) 50 MG tablet Take 50 mg by mouth at bedtime. Take 1/2 tab for 2 weeks, then increase to full tab if no side effects 90 tablet 1 03/27/20 24 Active amitriptyline (Elavil) 10 MG tablet Take 1 tablet (10 mg) by mouth at bedtime. 30 tablet 3 05/17/20 24 025 Active phentermine 15 MG capsule Take 1 capsule (15 mg) by mouth before breakfast. 30 capsule 09/18/19 25 025 Active oseltamivir (Tamiflu) 75 MG capsule Take 1 capsule (75 mg) by mouth 2 times daily for 5 days. 10 capsule 08/14/19 25 025 ofloxacin (Floxin) 0.3 % otic solution Administer 10 drops into the right ear Once per day for 7 days. 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, we reviewed [...] Encounters Date Type Department Care Team Description 09/17/2024 11:00 AM EDT Procedure Visit [facility] MEDICINE [address] [place] [address] Soniya Colon MD Screening for cervical cancer (Primary Dx); Dietary counseling; Exercise counseling; Overweight 09/17/2024 Travel 09/09/2024 Orders Only [facility] MEDICINE [address] [place] [address] Soniya Colon MD Kidney stone (Primary Dx) 08/29/2024 Orders Only [facility] MEDICINE [address] [place] [address] Soniya Colon MD 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 (Primary Dx); Urinary tract infection without hematuria, site unspecified 08/23/[address] [address] Soniya Colon MD Referral 08/14/2024 5:40 PM EDT Office Visit [facility] WALK-IN CENTER [address] [place] [address] Balaji Lock MD Acute diffuse otitis externa of right ear (Primary Dx) 08/14/[address] [address] Soniya Colon MD Nurse Triage 08/13/2024 5:20 PM EDT [facility] [address] [address] Balaji Lock MD Influenza (Primary Dx); Sore throat 07/26/2024 3:20 PM EST [facility] [address] [address] Karissa Nina MD Urinary tract infection without hematuria, site unspecified (Primary Dx) 07/04/[address] [address] Adelina Jennings [place] recall 06/28/[address] [address] Margot Moreno, SELIN Results from Last 3 Months Immunizations Name Administration [...] Sign Reading Time Taken Comments Blood Pressure 129/93 09/17/2024 11:18 AM EDT Pulse 88 09/17/2024 11:18 AM EDT Temperature 36.4 ??C (97.5 ??F) 09/17/2024 11:18 AM E DT Respiratory Rate 20 09/17/2024 11:18 AM EDT Oxygen Saturation 98% 09/17/2024 11:18 AM EDT Inhaled Oxygen Concentration - - Weight 84.4 kg (186 lb) 09/17/2024 11:18 AM EDT Height 157.5 cm (5' 2 ) 09/17/2024 11:18 AM EDT Body Mass Index 34.02 09/17/2024 11:18 AM EDT Plan of Treatment Upcoming Encounters Date Type Department Care Team (Late st Contact Info) Description 10/01/2024 1:30 PM EDT Office Visit [facility] OPTOMETRY [address] [place], [place] [phone] Indio, Katelyn, OD [address] [place], [place] [phone] Health Maintenance Due Date Last Done Comments [...] 09/12/2023 Depression Screening 03/25/2025 03/25/2024, 03/25/20 24 Alcohol/Substance Use Screening 05/17/2025 05/17/2024 Tobacco Screening 09/17/2025 09/17/2024 Lipid Panel 11/17/2026 11/17/2021 DTaP/Tdap/Td Vaccines (8 - Td or Tdap) 05/16/2029 05/16/2019, 01/12/2009, 11/07/2000, Additional history exists Zoster Vaccines (1 of 2) 2046 RSV Patients and Patients Aged 60 years or older (1 - 1-dose 75+ series) 09/02/2071 HIB Vaccines Completed 12/26/1997, 0705/1997, 03/28/1997, Additional history exists Hepatitis B Vaccines [...] Procedure Name Priority Date/Time Associated Diagnosis Comments AMB REFERRAL TO UROLOGY Routine 09/13/2024 Kidney stone POCT INFLUENZA A (ID NOW RAPID MOLECULAR) Routine 08/13/2024 5:05 PM EDT Sore throat POCT INFLUENZA B (ID NOW RAPID MOLECULAR) Routine 08/13/2024 5:04 PM EDT Sore throat POC JOHNSON ID NOW STREP A Routine 08/13/2024 5:03 PM EDT Sore throat POCT RAPID COVID ANTIGEN Routine 08/13/2024 5:02 PM EDT Sore throat CULTURE, URINE, ROUTINE Routine 07/26/2024 3:31 PM EST Urinary tract infection without hematuria, site unspecified POCT URINALYSIS DIPSTICK Routine 07/26/2024 3:30 PM EST Urinary tract infection without hematuria, site unspecified CT HEAD WO CONTRAST Routine 06/25/2024 1 :18 PM EST Nonintractable chronic migraine Forgetfulness LIPID PANEL, STANDARD Routine 11/17/2021 2:57 PM EDT THINPREP PAP Routine 02/10/2021 4:04 PM EDT from Last 3 Months or Most Recently Relevant to Health Maintenance Results * Referral to Urology (09/13/2024) Soniya Cloon MD OUTPATIENT REFERRAL ORDERABLES Final Result * POCT Rapid Influenza A JOHNSON ID NOW (08/13/2024 5:05 PM EDT) Influenza A Negative Negative, Indeterminate [facility] QC Media Lot # [id number] [facility] Lot# Expiration Date [facility] Swab 08/13/2024 5:05 PM EDT Balaji Fontanez MD POINT OF CARE TEST ENTER/EDIT ORDERABLES Final Result Performing Organization Address City/[facility]/ZIP Co de Phone Number [facility] [address] [place] [phone] [phone] * (ABNORMAL) POCT Rapid Influenza B JOHNSON ID NOW (08/13/2024 5:04 PM EDT) Pathologist [facility] Influenza B Positive( A) Negative, Indeterminate [facility] QC Media Lot # [id number] [facility] Lot# Expiration Date 6 [facility] Swab 08/13/2024 5:04 PM EDT Balaji Fontanez MD POINT OF CARE TEST ENTER/EDIT ORDERABLES Final Result Performing Organization Address City/[facility]/ZIP Co de Phone Number [facility] [address] [place] [phone] * POCT Rapid Strep A JOHNSON ID NOW (08/13/2024 5:03 PM EDT) [facility] Rapid Strep A Screen Negative Negative, None Detected QC Media Lot # [id number] Lot# Expiration Date Swab 08/13/2024 5:03 PM EDT Balaji Fontanez MD POINT OF CARE TEST ENTER/EDIT ORDERABLES Final Result * POCT Rapid Covid-19 BinaxNOW (08/13/2024 5:02 PM EDT) [facility] Rapid COVID Ag Negative QC Media Lot # [id number] Lot# Expiration Date Swab 08/13/2024 5:02 PM EDT Balaji Fontanez MD POINT OF CARE TEST ENTER/EDIT ORDERABLES Final Result * Culture, Urine, Routine (07/26/2024 3:31 PM EST) Urine Urine specimen obtained by clean catch procedure / Unknown 07/26/2024 3:31 PM EST 07/26/2024 4:44 PM EST Comment:UACC Narrative [facility] - 07/28/2024 8:33 AM EST Urine Culture Report Result Urine Culture < 10,000 cfu/ml Specimen Source: Urine clean catch Karissa Gonzalez MD LAB MICROBIOLOGY - NERAL ORDERABLES Final Result [facility] [address] [place] [phone] * (ABNORMAL) POCT urinalysis dipstick manually resulted (07/26/2024 3:30 PM EST) Color, UA [place]on Clarity, UA Clear Glucose, UA Few 15 [...] EST Narrative 06/25/2024 1:20 PM EST ? [facility] ?[address] ?[place] [address] ? CT Scan Report ? Signed ? Patient: Hernandez,Cande K ?MR#: [id number] ?? [id number] ? : 1995 ?Acct:[id number] ? Age/Sex: 28 / F ?ADM Date: 06/24/24 ? Loc: HO.CT ? Attending Dr: Meri Haque DO ? Ordering Physician: Meri Haque DO ?? Date of Service: 06/24/24 ?? Procedure(s): CT head/brain wo IV con ?? Accession Number(s): [id number] ? cc: Meri Haque DO ? Report Number: ?? [id number]: Total DLP = ??804.00 mGy-cm ? CLINICAL HISTORY: change in migraines, increasing forgetfulness ? CT head without contrast ? Comparison: CT/SR - BRAIN WO IV CONTRAST [id number] - 05/12/16 11:26 EST ? Findings: ?? [...] DD/ 1318 ? TD/TT: 06/25/24 1318 ? Direct Care Counselor: ? Procedure Note Donkulwinderdorotacristinater, Image - 06/25/[address] [address] [address] Scan Report Signed Patient: Cande Hernandez KMR#: [id number] : 1995Acct:[id number] Age/Sex: 28 / FADM Date: 06/24/24 Loc: HO.CT Attending Dr: Meri Haque DO Ordering Physician: Meri Haque DO Date of Service: 06/24/24 Procedure(s): CT head/brain wo IV con Accession Number(s): [id number] cc: Meri Haque Report Number: [id number]: Total DLP = 804.00 mGy-cm CLINICAL HISTORY: change in migraines, increasing forgetfulness CT head without contrast Comparison: CT/SR - BRAIN WO IV CONTRAST [id number] - 05/12/16 11:26 EST Findings: No intra-axial [...] signed by Vitor Garcia MD in OV> 06/25/24 1319 DD/ 1318 TD/TT: 06/25/24 1318 Direct Care Counselor: Meri Haque DO IMG CT PROCEDURES Final Resu lt [...] the ?? estimation of LDL-C. ?? Alcon JADE et al. SASCHA. 2013;310(19): 1216-7321 ?? (http://[email or web address].[email or web address]ORT/faq/HNH329) Non-HDL Cholesterol 140(H) <130 mg/dL (calc) [facility] Comment: For patients with diabetes plus 1 major ASCVD risk ?? factor, treating to a non-HDL-C goal of <100 mg/dL ?? (LDL-C of <70 mg/dL) is considered a therapeutic ?? option. Triglycerides 190(H) <150 mg/dL [facility] 11/17/2021 2:57 PM EDT us Soniya Colon MD LAB BLOOD ORDERABLES Final Res ult [facility] [address] [place] [address], * THINPREP PAP (02/10/2021 4:04 PM EDT) [...] historic and ?? current clinical information. ?? 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 [facility] LMP: 02/03/2021 [facility] Prev. BX: NONE GIVEN [facility] Prev. PAP: NONE GIVEN [facility] Review Meat Grading Machine Operator : SEE COMMENT [facility] Comment: KN, CT(ASCP) CT screening location: [address] ??[address] SOURCE: None given [facility] Statement Of Adequacy: SEE COMMENT [facility] Comment: Satisfactory for evaluation. Endocervical/transformation zone component present. Partially obscuring inflammation Partially obscuring blood 02/10/2021 4:04 PM EDT Nicolette Cordell CN LAB PATHOLOGY ORDERABLES Final Result [facility] [address] from Last 3 Months or Most Recently Relevant to Health Maintenance Insurance [facility] HMO [facility] DENTAL - HSN PARTIAL (MEDICAID) Care Teams Acid Regenerator Relationship Specialty Start Date End Date Soniya Colon MD [address] [place] [phone] PCP - General Family Medicine 01/19/21
--- OUTSIDE RECORDS SUMMARY | 2024-09-17 18:54 | XMS_ITS | Encounter Summary ---
Author Organization [facility] [facility] Address [address] [place] [address] 7t [place] [address] Care Team Providers Care Treasury Director Name Role Phone Soniya Colon MD Primary Care Provider [phone] Encounter Details Date Type Department Care Team (Late Contact Info) Description 04/25/2022 Abstract [facility] MEDICINE [address] [place] [address] Soniya Colon MD [address] [place] [address] Social History Tobacco Use Types Packs/Day Years [...] Description 10/01/2024 1:30 PM EDT Office Visit [facility] OPTOMETRY [address] [place] [address] Indio, Katelyn, OD [address] [place] [address] documented as of this encounter Visit Diagnoses Not on filedocumented in this encounter Care Teams Treasury Director Relationship Specialty Start Date End Date Soniya Colon MD [address] [place] [address] PCP - General Family Medicine 8/24/21 documented as of this encounter
--- OUTSIDE RECORDS SUMMARY | 2024-09-17 18:55 | XMS_ITS | Encounter Summary ---
Author Organization [employer] Address [address] [place] [address] 7t [place] [address] Care Team Providers Care Wound Nurse Name Role Phone Soniya Colon MD Primary Care Provider [phone] Reason for Visit * Reason Comments Gynecologic Exam Encounter Details Date Type Department Care Team (Latest Contact Info) Description 09/17/2024 11:00 AM EDT Procedure Visit [facility] MEDICINE [address] [place], [place] [phone] Soniya Colon MD [address] [place], [place] [phone] Screening for cervical cancer (Primary Dx); Dietary counseling; Exercise counseling; Overweight Social History Tobacco Use Types Packs/Day Years [...] your housing situation today? I have jolene lemsu 04/12/[address] you li [...] Mass Index 34.02 09/17/2024 11:18 AM EDT documented in this encounter Plan of Treatment Upcoming Encounters Date Type Department Care Team (Late st Contact Info) Description 10/01/2024 1:30 PM EDT Office Visit [facility] OPTOMETRY [address] [place] [address] Indio, Katelyn, OD [address] [place] [address] Scheduled Orders Name Type Priority Associated Diagnoses Orde r Schedule Pap Smear Pathology and Cytology Routine Screening for cervical cancer Ordered: 09/17/2024 documented as of this encounter Visit Diagnoses Diagnosis Screening for cervical cancer- Primary Screening for malignant neoplasm of the cervix Dietary counseling Dietary surveillance and counseling Exercise counseling Overweight documented in this encounter Additional Health Concerns Assessment Noted Time PHQ-9 Depression Total Score: 4 03/25/20 24 2:12 PM EDT documented as of this encounter Care Teams Wound Nurse Relationship Specialty Start Date End Date Soniya Colon MD [address] [place] [address] PCP - General Family Medicine 01/19/21 documented as of this encounter
--- OUTSIDE RECORDS SUMMARY | 2024-09-17 18:55 | XMS_ITS | Encounter Summary ---
Author Organization [employer] [facility] Address [address] [place] [address] 7t [place] [address] Care Team Providers Care Vasc Tech Name Role Phone Soniya Colon MD Primary Care Provider [phone] Encounter Details Date Type Department Care Team (Late st Contact Info) Description 01/10/2023 Orders Only [facility] MEDICINE [address] [place], [place] [phone] Soniya Colon MD [address] [place], [place] [phone] Migraine without aura and with status migrainosus, [...] Description 10/01/2024 1:30 PM EDT Office Visit [facility] OPTOMETRY [address] [place], [place] [phone] Indio, Katelyn, OD [address] [place], [place] [phone] documented as of this encounter Visit Diagnoses Diagnosis Migraine without aura and with status migrainosus, not intractable- Primary documented in this encounter Care Teams Vasc Tech Relationship Specialty Start Date End Date Soniya Colon MD [address] [place] [address] PCP - General Family Medicine 01/19/21 documented as of this encounter
--- OUTSIDE RECORDS SUMMARY | 2024-09-17 18:55 | XMS_ITS | Clinical Summary ---
Author Organization [facility] Address [address] [place] [address] Care Team Providers Care Filter Press Supervisor Name Role Phone Unavailable Primary Care Provider [...] Vaccine (2023-2 5 season) 2024 Influenza Vaccine (Season Ended) 2025 HIB Vaccines Aged Out No longer eligi [...] age to complete this topic Meningococcal B Vaccine Aged Out No l onger eligible based on patient's age to complete [...]
--- OUTSIDE RECORDS SUMMARY | 2024-09-17 18:55 | XMS_ITS | Encounter Summary ---
Author Organization [employer] Address [address] [place] [address] 7[address] [place] [address] Care Team Providers Care Branch Logistics Supervisor Name Role Phone Soniya Colon MD Primary Care Provider [phone] Reason for Referral * Consultation (Routine) - Closed Specialty Diagnoses / Procedures Referred By Contkiarra t Referred To Contact Urology Diagnoses Kidney stone Soniya Colon MD [address] [place] [address] Phone: tel: fax: [facility] [address] [place] [address] [place] [address] Phone: tel: fax: Referral ID Status Reason Start Date Expiration Date V isits Requested Visits Authorized [id number] Closed Specialty Services Required 09/09/2024 09/09/2025 1 1 Encounter Details Date Type Department Care Team (Late st Contact Info) Description 09/09/2024 Orders Only [facility] MEDICINE [address] [place] [address] Soniya Colon MD [address] [place], [place] [phone] Kidney stone (Primary Dx) Social History Tobacco Use Types [...] Description 10/01/2024 1:30 PM EDT Office Visit [facility] OPTOMETRY [address] [place] [address] [place], Katelyn, OD [address] [place] [address] documented as of this encounter Procedures Procedure Name Priority Date/Time Associated Diagnosis Comments AMB REFERRAL TO UROLOGY Routine 09/13/2024 Kidney stone documented in this encounter Results * Referral to Urology (09/13/2024) Soniya Colon MD OUTPATIENT REFERRAL ORDERABLES Final Result documented in this encounter Visit Diagnoses Diagnosis Kidney stone- Primary Calculus of kidney documented in this encounter Additional Health Concerns Assessment Noted Time PHQ-9 Depression Total Score: 4 03/25/20 24 2:12 PM EDT documented as of this encounter Care Teams Branch Logistics Supervisor Relationship Specialty Start Date End Date Soniya Colon MD [address] [place] [address] PCP - General Family Medicine 01/19/21 documented as of this encounter
--- OUTSIDE RECORDS SUMMARY | 2024-09-17 18:55 | XMS_ITS | Continuity of Care Document ---
Author Organization [facility] [place] [address] [facility] [place] [address]- Care Team Providers Care Box Order Person Name Role Phone Jakob TOURIST HOME KEEPER, James Linares Primary Care Physician Encounter 09/05/24 - 09/12/24 [facility] [address] [facility], [address] [place] [address]- Attending Physician: Rachel Hansen Admitting Physician: Rachel Hansen Referring Physician: Rachel Hansen Encounter Type: OutPatient One Time Allergies, Adverse Reactions, Alerts Substance Criticality Severity Reaction Reaction Severity Status terbinafine Active Bactrim Terbinafine Active Immunizations Given and Recorded Vaccine Date Status Refusal Reason SARS-CoV-2 (COVID-19) mRNA BNT-162b2 vac 10/17/20 Given SARS-CoV-2 (COVID-19) mRNA BNT-162b2 vac 09/26/20 Given Medications Allergy (Loratadine) = 10 mg, By Mouth, Daily, 0 Refills, Maintenance, 06/05/20 11:25:00 PM EST, Partial fill upon patientrequest if the prescription is for a schedule II opioid drug. Start Date: 06/05/20 Status: Ordered Repeat number: 1 amiTRIPTYLINE = 25 mg, By Mouth, Daily at bedtime, 0 Refills, Maintenance, 06/05/20 11:25:00 PM EST, Partial fill upon patient request if the prescription is for a schedule II opioid drug. Start Date: 06/05/20 Status: Ordered Repeat number: 1 Multivitamin Daily, 0 Refills, Maintenance, 06/05/20 11:25:00 PM EST, Partial fill upon patient request if the prescription is for a schedule II opioid drug. Start Date: 06/05/20 Status: Ordered Repeat number: 1 naproxen 375 mg oral delayed release tablet 1 tablet = 375 mg, By Mouth, 2 times a day, PRN Pain , Moderate, with food, # 12 tablet, 0 Refills,Maintenance, 06/07/20 12:28:00 AM EST, EC Tablet, [id number], Partial fill upon patient request if the prescription is for a schedule II opioid drug., 158, cm, 06/05/20 23:20:00 EST, Height, 76.2, kg, 06/05/20 23:20:00 EST, Dry Weight Start Date: 06/07/20 Status: Ordered Quantity: 12.0 Unit: tablet Repeat number: 1 Multivitamins By Mouth, Daily, 0 Refills, Maintenance, 05/24/22 2:32:00 PM EST, Partial fill upon patient requestif the prescription is for a schedule II opioid drug. Start Date: 05/24/22 Status: Ordered Repeat number: 1 Sronyx 100 mcg-20 mcg oral tablet 1 tablet, By Mouth, Daily, # 84 tablet, 0 Refills, Maintenance, 03/10/23 7:27:00 AM EDT, [facility], 84, TAKE 1 TABLET BY MOUTH EVERY DAY, 158, cm, 12/08/22 10:24:00 EDT, Height, 80.2, kg, 07/11/21 19:18:00 EST, Dry Weight Start Date: 03/10/23 Status: Ordered Quantity: 84.0 Unit: tablet Repeat number: 1 Problem List Condition Confirmation Course Effective Dates Status Health St atus Informant Abdominal pain Confirmed Active Obese class I Confirmed Active Results Radiology Reports * Exam Date Time Procedure Performing Provider Status 09/04/24 4:30 PM US Renal Bladder Kinsey Vann Notes: (US Renal Bladder) Reason For Exam: calculus of kidney RESULT: US Renal Bladder US Renal Bladder Reason: calculus of kidney COMPARISON: 04/28/2023 FINDINGS: Right kidney: 11.2 cm in length. No hydronephrosis. Normal parenchymal thickness and echotexture. Afew tiny echogenic bright reflectors measuring 2 to 3 mm noted in the mid to lower pole of the right kidney suspicious for nonobstructive calculi. No suspicious mass. Left kidney: 11.9 cm in length. No hydronephrosis. Normal parenchymal thickness and echotexture. 2 tiny echogenic bright reflectors each measuring 3 mm in the lower pole of the left kidney, suspicious for tiny nonobstructive calculi. No suspicious mass. Urinary bladder: Normal morphology. No stone, mass, wall thickening or debris. Bilateral ureteral jets are identified on color Doppler imaging suggesting ureterovesicular junction patency. Prevoid volume: 462 cc. Partially visualized liver appears diffusely echogenic, suggestive of hepatic steatosis or chronic hepatocellular disease. IMPRESSION: No hydronephrosis. Tiny echogenic bright reflectors measuring up to 3 mm in the mid to lower pole of the right kidney and lower pole of the left kidney, suspicious for tiny nonobstructive calculi. WSN: [id number] Ordering Physician: Rachel Blake Dictated By: Prudence Cordon MD Dictated Date/Time: 09/05/24 8:55 am Reviewed By: Prudence Cordon MD Signed By: Prudence Cordon MD Signed Date/Time: 09/05/24 8:55 am Transcribed By: FRANCISCO Transcribed Date/Time: 09/05/24 8:52 am Patient Care team information Care Team Personnel Name: Jakob MIRAMONTES, James Linares Position: [facility] Outreach Member Role: PCP Address: [address] [place] [address] Telecom: Care Team Related Persons Name: MONO SHER Insurance Providers Guarantor name: ROSEANNE QURESHI [employer] [facility] Information #: 1 Payer: [facility] [employer] NON P HMO Member Number: [id number] Policy Number: NA Group Number: [id number] Health Plan Information #: 2 Payer: [facility] [employer] NON [employer] HMO Member Number: [id number] Policy Number: NA Group Number: [id number]
--- OUTSIDE RECORDS SUMMARY | 2024-09-17 18:55 | XMS_ITS | Encounter Summary ---
Author Organization [employer] Address [address] [place] [address] [address] [place] [address] Care Team Providers Care Banking Consultant Name Role Phone Soniya Colon MD Primary Care Provider [phone] Reason for Visit * Reason Comments Med Refill Encounter Details Date Type Department Care Team (Late Contact Info) Description 07/06/2022 Refill [facility] MED & PEDS [address] [place], [place] [phone] Sohail Rouse MD [address] [place] [address] Social History Tobacco Use Types Packs/Day Years [...] 1:30 PM EDT Office Visit [facility] OPTOMETRY [address] [place] [address] [place], Katelyn, OD [address] [place] [address] documented as of this encounter Visit Diagnoses Not on filedocumented in this encounter Care Teams Banking Consultant Relationship Specialty Start Date End Date Soniya Colon MD [address] [place] [address] PCP - General Family Medicine 01/19/21 documented as of this encounter
--- OUTSIDE RECORDS SUMMARY | 2024-09-17 18:55 | XMS_ITS | Data Portability ---
Author Organization [place] [facility] Address [address] [address] Care Team Providers Care Sales And Marketing Professional Name Role Phone MAGY MANUEL Primary Care Provider Assessment Encounter Date Assessment Date Assessment LastModified by Organization Details LastModified Time 08/28/2024 08/28/2024 28yo female presents for evaluation of the ears. She contracted the Flu 2 weeks ago, and endorses subsequent right otalgia which resolved with topical Ofloxacin. Today she reports right-sided aural fullness as well as nasal congestion, nasal drainage, facial pain, headache, and maxillary tooth discomfort for one day. TMs are normal to inspection. Anterior rhinoscopy demonstrates 2+ inferior turbinate hypertrophy without mucosal edema or purulence. We discussed symptoms are consistent with acute viral sinusitis after URI, and I recommend supportive measures with acetaminophen, nasal saline irrigations, and intranasal fluticasone. Patient will contact me via the portal if symptoms worsen after 7-10 days. Will consider oral antibiotic at that time. If aural fullness persists, recommend returning for audiometric testing. [email or web address] Not available 08/28/2024 17:13:09 Plan of Treatment Reminders Order Date Submit Date Provider Last Modified By Organization Details Last Modified Time Details Appointments None record ed. Lab None record ed. Referral None record ed. Procedures None record ed. Surgeries None record ed. Imaging None record ed. Medication Orders None record ed. Patient TargetsNo targets recorded. Patient InstructionsNo instructions recorded. Reason for Referral None Reported. Problems Name Problem SNOMED Code Status Onset Date Resolution Date Notes Provider Name and Address Organization Details Recorded Time Abnormal auditory percepti on 74055897 Active 2022 Other abnormal auditory percepti ons, bilatera l; Note: Date Diagnose d: 3 3:37 PM (H93.293 ) Not Available [facility] 4 02:45:42 Infectiv e otitis externa of gabriela l ears 93343072544 67737 Completed 202212/29/2023 Other infectiv e otitis externa, gabriela l; Note: Date Diagnose d: 3 2:50 PM (H60.393 ) Not Available [facility] 4 02:45:39 Acute sinusiti s 91879375 Active 2024 ARSEN GOODMAN PA-C [address] [place] [address],[place] [address], [facility] [place], [address] , [facility] - [facility] 5 15:47:08 Problem Notes None recorded. Medical Equipment None Reported. Allergies Allergen ID Allergen Name Allergen Category Reaction Reaction Severity Criticality Documentation Date Start Date Code Code System Note Provider Name and Address Organization Details Recorded Time 822119 Bactrim medicatio n Not available Not available Not available 10/10/2023 57364 9 RxNorm React ion: Lip swell ing; Not Available [facility] 4 01:08:18 940833 terbinafi ne medicatio n facial swelling Not available Not available 10/10/2023 81218 RxNorm React ion: Facia l swell ing; Not Available [facility] 4 01:08:20 Medications Name Sig Start Date Stop Date Status Note LastModified by Organization Details LastModified Time meloxicam 7.5 mg tablet TAKE 1 TABLET (7.5 MG) BY MOUTH 2 TIMES DAILY FOR 14 DAYS. 08/28 completed Not Available Not Available Not Available ofloxacin 0.3 % ear drops ADMINIST ER 10 DROPS INTO THE RIGHT EAR ONCE PER DAY FOR 7 DAYS. active Not Available Not Available No t Available amitripty line 10 mg tablet TAKE 1 TABLET BY MOUTH EVERYDAY AT BEDTIME 08/28 completed Not Available Not Available Not Available erythromy maddy 5 mg/gram (0.5 %) eye ointment APPLY TO LEFT EYE 4 TIMES DAILY FOR 10 DAYS. APPLY AMOUNT PER DOSE: 0.5 INCH (~1 CM) PER DOSE. 08/28 completed Not Available Not Available Not Available oseltamiv ir 75 mg capsule TAKE 1 CAPSULE BY MOUTH TWICE A DAY FOR 5 DAYS active Not Available Not Available No t Available norethind erwin (contrace ptive) 0.35 mg tablet active Medicati on ID: [id number] B rand Name: deb whitene (contrac eptive) Send Method: E-Prescr ibed Sub s Allowed: subs OK Speci al Instruct ion: TAKE 1 TABLET (0.35 MG) BY MOUTH IN THE MORNING Medicati onGeneri cName: norethin drone (contrac eptive) Not Available Not Available Not Available oxycodone 5 mg tablet TAKE 1 TABLET BY MOUTH EVERY 6 HOURS NEEDED 08/28 completed Not Available Not Available Not Available neomycin- polymyxin -hydrocor t 3.5 mg-10,000 unit/mL-1 % ear drops,adam p INSTILL 3 DROPS INTO AFFECTED EAR 3 TIMES A DAY FOR 7 DAYS 08/28 completed Not Available Not Available Not Available Ciprodex 0.3 %-0.1 % ear drops,adam pension Apply 4 drop into both ears twice a day 08/28 completed Medicati on ID: [id number] D uration Value: 14 Brand Name: Ciprodex Send Method: E-Prescr ibed Sub s Allowed: subs OK Medic ationGen ericName : Ciprodex Not Available Not Available Not Available topiramat e 50 mg tablet TAKE 1/2 TABLET BY MOUTH AT BEDTIME FOR 2 WEEKS THEN INCREASE TO 1 TAB AT BEDTIME IF NO SIDE EFFECTS 08/28 completed Not Available Not Available Not Available nitrofura ntoin monohydra te/macroc rystals 100 mg capsule TAKE 1 CAPSULE BY MOUTH TWICE A DAY FOR 7 DAYS active Not Available Not Available No t Available fluocinol one acetonide oil 0.01 % ear drops Apply 5 drop into both ears twice a day 08/28 completed Medicati on ID: [id number] D uration Value: 7 Brand Name: fluocino lone acetonid e oil Send Method: E-Prescr ibed Sub s Allowed: subs OK Medic ationGen ericName : fluocino lone acetonid e oil Not Available Not Available Not Available M- Plus 27 mg iron-1 mg tablet 08/28 completed Medicati on ID: [id number] B rand Name: Morena-Raheem Plus Sen d Method: E-Prescr ibed Sub s Allowed: subs OK Speci al Instruct ion: TAKE 1 TABLET BY MOUTH EVERY DAY Medi cationGe nericNam e: M- Plus Not Available Not Available Not Available Vitals Date Recorded Body height Body mass index (BMI) Body weight Provider Name and Address Organization Details Last Updated DateTime 08/28/2024 157.48 cm 32.7 kg/m2 45304.03 g MAR HARRY [place] [facility] 08/28/2024 15:22:52 Social History None recorded. Functional Status None recorded. Mental Status None recorded. Family History Nothing Reported. Medical History No medical history recorded. Gynecological HistoryNo gynecological history recorded. Obstetrics History GPAL:G 0 P 0 0 0 0 Past Encounters Encounter ID Performer Location Encounter Start Date Encounter Closed Date Diagnosis/Indication Diagnosis SNOMED-CT Code Diagnosis ICD10 Code Diagnosis Note [id number] PAULETTE SESAY MD [facility] [address] [address] 08/28/2024 15:13:18 08/28/2024 15:54:21 Abnormal auditory perception 71749547 H93.293 Acute sinusitis 47661746 J01.90 Health Concerns Section Related Observation LastModified by Organization Detai ls LastModified Time None Recorded Concern Status LastModified by Organization Details LastModified Time None Recorded Advance Directives Directive None Recorded Payers Encounter Date Sequence Insurance Name Policy Number Policy Irizarry Covered Member ID Irizarry Member ID Guarantor Name 08/28/2024 1 [facility] [id number] Cande Hernandez [id number] Cande Hernandez Notes Date Note Type Note Provider Name and Address Organization Details Recorded Time 08/28/2024 text/html 28yo female presents for evaluation of the ears. She had the Flu 2 weeks ago and endorses subsequent right ear pain, treated with ofloxacin drops for 5 days. Ear pain resolved with antibiotic drops. Right hearing is muffled today. Denies ear drainage or tinnitus. Yesterday she developed nasal congestion, nasal drainage, facial pain, headache, and maxillary tooth discomfort. Denies anosmia or nasal obstruction. She has a history of seasonal allergies. PAULETTE CHEEK MD [address] [place] [address], [place], [address], [facility] - [facility] 08/29/2024 10:41:39 OBGyn Episode No OBEpisode recorded.
--- OUTSIDE RECORDS SUMMARY | 2024-09-17 18:55 | XMS_ITS | Encounter Summary ---
Author Organization [employer] Address [address] [facility] [address] [place] [address] Care Team Providers Care Certifed Refrigeration Operator Name Role Phone Soniya Colon MD Primary Care Provider [phone] Encounter Details Date Type Department Care Team ([facility] st Contact Info) Description 10/16/2023 Orders Only [facility] MEDICINE [address] [place], [place] [phone] Soniya Colon MD [address] [place], [place] [phone] Social History Tobacco Use Types Packs/Day Years [...] 10/01/2024 1:30 PM EDT Office Visit [facility] OPTOMETRY [address] [place] [address] [place], Katelyn, OD [address] [place] [address] documented as of this encounter Visit Diagnoses Not on filedocumented in this encounter Additional Health Concerns Assessment Noted Time PHQ-9 Depression Total Score: 13 023 3:47 PM EST documented as of this encounter Care Teams Certifed Refrigeration Operator Relationship Specialty Start Date End Date Soniya Colon MD [address] [place] [address] PCP - General Family Medicine 01/19/21 documented as of this encounter
== END 2024-09-17 16:36 | disposition home or self-care (01) ==
LOC: HO.HHCLNP 16:35
PROVIDERS: Visit Provider General Practice
DX: Z12.4 Encounter for screening for malignant neoplasm of cervix (principal)
CPT/HCPCS: 88175

== ENCOUNTER 2024-12-03 17:34 | Outpatient (REF) | payer BC, SELFPAY ==
--- OUTSIDE RECORDS SUMMARY | 2024-12-03 17:36 | XMS_ITS | Data Portability ---
Author Organization [place] [facility], [facility] Address [address] [address] Care Team Providers Care Assistant Merchandiser Name Role Phone MAGY MANUEL Primary Care Provider [phone] Assessment Encounter Date Assessment Date Assessment LastModified [...] Details Recorded Time Abnormal auditory percepti on 02699173 Active 2022 Other abnormal auditory percepti ons, bilatera l; Note: Date Diagnose d: 3 3:37 PM (H93.293 ) Not Available [facility] 4 02:45:42 Infectiv e otitis externa of bilatera l ears 41670081658 06514 Completed 202212/29/2023 Other infectiv e otitis externa, bilatera l; Note: Date Diagnose d: 3 2:50 PM (H60.393 ) Not Available [facility] 4 02:45:39 Acute sinusiti s 10231380 Active 2024 ARSEN GOODMAN PA-C [address] [place] [address],[facility] [address], [facility] [place] [place], [address] , [facility] - [facility] 5 15:47:08 Problem Notes None recorded. Medical Equipment None Reported. Allergies Allergen ID Allergen Name Allergen Category Reaction Reaction Severity Criticality Documentation Date Start Date Code Code System Note Provider Name and Address Organization Details Recorded Time 007781 Bactrim medicatio n Not available Not available Not available 10/10/2023 68120 9 RxNorm React ion: Lip swell ing; Not Available [facility] 4 01:08:18 899474 terbinafi ne medicatio n facial swelling Not available Not available 10/10/2023 91125 RxNorm React ion: Facia l swell ing; Not Available [facility] 4 01:08:20 Medications Name Sig Start Date [...] 0.35 mg tablet active Medicati on ID: [id number] B rand Name: norethin drone (contrac eptive) Send Method: E-Prescr ibed Sub [...] a day 08/28 completed Medicati on ID: [id number] D uration Value: 14 Brand Name: Ciprodex [...] a day 08/28 completed Medicati on ID: [id number] D uration Value: 7 Brand Name: fluocino lone acetonid e oil Send Method: E-Prescr ibed Sub s Allowed: subs OK Medic ationGen ericName : fluocino lone acetonid e oil Not Available Not Available Not Available M- Plus 27 mg iron-1 mg tablet 08/28 completed Medicati on ID: [id number] B rand Name: M-Raheem Plus Sen d Method: E-Prescr ibed Sub s Allowed: subs OK Speci al Instruct ion: TAKE 1 TABLET BY MOUTH EVERY DAY Medi cationGe nericNam e: M-Raheem Plus Not Available Not Available Not Available Vitals Date Recorded Body height Body mass index (BMI) Body weight Provider Name and Address Organization Details Last Updated DateTime 08/28/2024 157.48 cm 32.7 kg/m2 05993.03 g MAR H[facility] [place] [facility] 08/28/2024 15:22:52 Social History None recorded. Functional Status None recorded. Mental Status None recorded. Family History Nothing Reported. Medical History No medical history recorded. Gynecological HistoryNo gynecological history recorded. Obstetrics History GPAL:G 0 P 0 0 0 0 Past Encounters Encounter ID Performer Location Encounter Start Date Encounter Closed Date Diagnosis/Indication Diagnosis SNOMED-CT Code Diagnosis ICD10 Code Diagnosis Note [id number] ARSEN GOODMAN PA-C [facility] [address] [address] 08/28/2024 15:13:18 08/28/2024 15:54:21 Abnormal auditory perception 45302117 H93.293 Acute sinusitis 40211268 J01.90 Health Concerns Section Related Observation LastModified by Organization Detai ls LastModified Time None Recorded Concern Status LastModified by Organization Details LastModified Time None Recorded Advance Directives Directive None Recorded Payers Insurance Date Sequence Insurance Name Policy Number Policy Irizarry Covered Member ID Irizarry Member ID Guarantor Name 08/23/2024 1 [facility] [id number] Cande Hernandez [id number] Cande Hernandez 08/28/2024 1 [place] [facility] [id number] Cande Hernandez [id number] Cande Hernandez Notes Date Note Type Note [...] history of seasonal allergies. PAULETTE CHEEK MD [address] [place] [address], [phone], [facility] - [facility] 08/29/2024 10:41:39 OBGyn Episode No OBEpisode recorded.
--- OUTSIDE RECORDS SUMMARY | 2024-12-03 17:36 | XMS_ITS | Clinical Summary ---
Author Organization [employer] [facility] Address [address] [place] [address] Care Team Providers Care Cap Parts Cutter Name Role Phone Unavailable Primary Care Provider [...] 2023-2 5 season) 2024 Influenza Vaccine (#1) 2025 HIB Vaccines Aged Out No longer [...] 5 Years) and At-Risk Patients (6 to 49 Years) Aged Out No longer eligible b ased on patient's age to complete this topic RSV Immunization Patients Un kennedy 20 months Aged Out No longer eligible b ased on patient's age to complete this topic Varicella Vaccines Aged Out No longer eligible based on patient's age to complete this topic
[2024-12-03 21:57] LABS: Bacterial Vaginosis PCR POSITIVE (Negative); Candida Group PCR NOT DETECTED (Not Detect); Candida glab krusei PCR NOT DETECTED (Not Detect); Trichomonas vaginalis PCR NOT DETECTED (Not Detect)
[2024-12-03 23:22] LABS: CT PCR NOT DETECTED (Not Detect.); NG PCR NOT DETECTED (Not Detect.)
== END 2024-12-03 17:35 | disposition home or self-care (01) ==
LOC: HO.HHCLNP 17:34
PROVIDERS: Visit Provider Advanced Practice Midwife
DX: Z11.3 Encounter for screening for infections with a predominantly sexual mode of transmission (principal)
CPT/HCPCS: 81515; 87491; 87591

== ENCOUNTER 2024-12-12 15:16 | Outpatient (REF) | payer BC, SELFPAY ==
--- NOTE | ~2024-12-12 | US_ITS ---
EXAMINATION: US PELVIS CLINICAL INFORMATION: History of endometrial polyp, abnormal uterine bleeding COMPARISON: Ultrasound 01/07/[address] 05/08/2023 TECHNIQUE: Ultrasound of the pelvis is performed using both transabdominal and transvaginal transducers along with Doppler. Transvaginal imaging is performed due to inadequate visualization transabdominally. FINDINGS: Uterus: The uterus is anteverted and measures 8 x 3 x 4.4 cm. The double wall endometrial thickness is 9 mm. The uterus is smooth in contour and has normal myometrial echogenicity. No visible fibroid. Adnexa: Both ovaries are visualized. There is normal color flow to the adnexa. There is no ovarian torsion. Trace free fluid is present in the left adnexa. Right ovary measures 2.9 x 1.7 x 1.7 cm cm. There is a 7 mm nonspecific echogenic focus. Left ovary measures 2.7 x 1.4 x 1.7 cm with a few peripheral follicles. US/US pelvic and transvaginal IMPRESSION: Unremarkable pelvic ultrasound Electronically signed by: David Downey MD 12/12/2024 04:30 PM EDT
--- OUTSIDE RECORDS SUMMARY | 2024-12-12 15:58 | XMS_ITS | Clinical Summary ---
Author Organization [employer] [facility] ity Address [address] [place] [address] Care Team Providers Care Machined Parts Quality Inspector Name Role Phone Unavailable Primary Care Provider [...]
--- OUTSIDE RECORDS SUMMARY | 2024-12-12 15:58 | XMS_ITS | Clinical Summary ---
Author Organization [employer] Address [address] [place] [address] 7 [place] [address] Care Team Providers Care Electric Truck Driver Name Role Phone Soniya Colon MD Primary Care Provider [phone] Allergies Active Allergy Reactions Criticality Noted Date Comments Black [place] Flavoring Agent (Non-Screening) Anaphylaxis High 11/10/2023 Sulfamethoxazole [...] evening and 2 tablets before bedtime. 03/24/20 Active albuterol 108 (90 Base) MCG/ACT inhaler Inhale 2 puffs every 4 (four) hours. 03/24/20 Active betamethasone valerate (Valisone) 0.1 % cream Apply topically twice a day. 01/20/20 Active ibuprofen 400 MG tablet Take 1 tablet by mouth in the morning and 1 tablet at noon and 1 tablet in the evening and 1 tablet before bedtime. 01/20/20 Active Neomycin-Polymyxi n-HC 1 % solution instill 4 drops by otic route 3 times every day into affected ear(s) for 5-7 days 03/24/20 Active sodium chloride (Kipp) 0.65 % nasal spray 2 sprays in each nostril 4x/day prn 10/27/20 22 Active fluticasone (Flonase) 50 MCG/ACT nasal spray SPRAY 1 SPRAY INTO EACH NOSTRIL TWICE A DAY FOR 30 DAYS 10/23/19 23 Active neomycin-polymyxi n-hydrocortisone (Cortisporin) 3.5-15397-4 otic suspension INSTILL 4 DROPS TO AFFECTED EAR 3 TIMES A DAY FOR 5- 7 DAYS 03/24/20 22 Active triamcinolone (Kenalog) 0.5 % cream APPLY [...] EARS TWICE A DAY 02/17/20 23 Active neomycin-polymyxi n-dexAMETHasone (Maxitrol) 3.5-45599-0.1 ophthalmic suspension INSTILL 1 DROP INTO AFFECTED [...] Active Vitamin A (beta carotene) 3 MG (98100 UT) tablet Take 1 tablet by mouth [...] at bedtime. 30 tablet 3 05/17/20 24 Active phentermine 15 MG capsule Take 1 capsule (15 mg) by mouth before breakfast. 30 capsule 09/18/19 25 Active Drospirenone (Slynd) 4 MG tablet Take 1 tablet by mouth Once per day. 28 tablet 11 12/04/19 25 Active tranexamic acid (Lysteda) 650 MG tablet tablet TAKE 1 TABLET ORALLY EVERY 8 HOURS 09/10/19 23 025 Discontinued metroNIDAZOLE (Flagyl) 500 MG tablet Take 1 tablet (500 mg) by mouth 2 times daily for 7 days. 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 Gonorrhoeae RNA, TMA, Vagina 12/03/2024 1:00 PM EDT Office Visit [address] [address] Nicolette Landa CNM Abnormal uterine bleeding (Primary Dx); Encntr screen for infections w sexl mode of transmiss 12/03/2024 Travel 12/02/[address] [address] Nicolette Landa CNM chart prep 12/02/2024 Travel 11/26/[address] [address] Soniya Colon MD Nurse Triage 09/20/[address] [address] Elizabeth Nevarez RN Results 09/17/2024 11:00 AM EDT Procedure Visit [address] [address] Soniya Colon MD Screening for cervical cancer (Primary Dx); Dietary counseling; Exercise counseling; Overweight; Von Willebrand disease ([facility]) 09/17/2024 Travel from Last 3 Months Immunizations Immunization Administration Dates Next Due DTP 12/26/1997, 8,03/28/1997,02/26,01/26/1997,1996,1996 [...] housing situation today? I have jolene lemus 12/03/[address] you li ve. Do you have problems with any of the following? None of the above 12/03/2024 Food Insecurity Answer Date Recorded Within the past 12 months, y ou worried that your food would run out before you got money to buy more: Never True 12/03/2024 Within the past 12 months,th e food you bought just didn't last and you didn't have enough money to get more: Never True 12/2024 Transportation Answer Date Recorded In the past 12 months, has l ack of transportation kept you from medical appts, meetings, work or from getting things needed for daily living? No 12/03/2024 Intimate Partner Violence Answer Date R ecorded Within the last year, have y ou been afraid of your partner or ex-partner? 2 09/19/2024 Within the last year, have y ou been humiliated or emotionally abused in other ways by your partner or ex-partner? 2 Within the last year, have y ou been kicked, hit, slapped, or otherwise physically hurt by your partner or ex-partner? 2 09/19/2024 Within the last year, have y ou been raped or forced to have any kind of sexual activity by your partner or ex-partner? 2 09/19/2024 Utilities Answer Date Recorded In the past 12 months, has t he electric, gas, oil or water company threatened to shut off services in your home? No 12/03/2024 Depression Answer Date Recorded Patient Health Questionnaire-2 Score 0 03/25/2024 Internet Access Answer Date Recorded Internet Access Q1 Yes 12/03/2024 Internet Access Q2 Not on file 12/03/2024 Comments No Intention Date Recorded No desire to become (finding) 0 12/03/2024 Sex and Gender Information Value Date Recorded Sex Assigned at Female 03/28/2022 10:16 AM EDT Legal Sex Female 10:16 AM EDT Gender Identity Female 03/28/2022 10:16 AM EDT Sexual Orientation Straight 03/28/2022 10 :16 AM EDT Last Filed Vital Signs Vital Sign Reading Time Taken Comments Blood Pressure 120/80 12/03/2024 1:20 PM EDT Pulse 96 12/03/2024 1:20 PM EDT Temperature 37.2 C (99 F) 12/03/2024 1:20 PM EDT Respiratory Rate 20 12/03/2024 1:20 PM EDT Oxygen Saturation 98% 09/17/2024 11:18 AM EDT Inhaled Oxygen Concentration - - Weight 86.2 kg (190 lb) 12/03/2024 1:20 PM EDT Height 157.5 cm (5' 2 ) 12/03/2024 1:20 PM EDT Body Mass Index 34.75 12/03/2024 1:20 PM EDT Plan of Treatment Upcoming Encounters Date Type Department Care Team (Late st Contact Info) Description 01/31/2025 2:30 PM EDT Office Visit [facility] [address] [place] [address] Katelyn Borjas, OD [address] [place] [address] Health Maintenance Due Date Last Done Comments Dental Oral Exam 1996 Dental Prophylaxis 1996 Dental X-Ray: Bitewings 1996 Dental X-Ray: Full Mouth 1996 Hepatitis C Screening 2014 COVID-19 Vaccine ( season) 2024 02/11/2022, 07/16/2021, 07/16/2021, Additional history exists Influenza Vaccine (#1) 2025 , 02/11/2022, 03/04/2020, Additional history exists Depression Screening 03/25/2025 03/25/2024, 03/25/20 Alcohol/Substance Use Screening 05/17/2025 05/17/2024 Disability Screening 12/03/2025 12/03/2024 Family Planning (PISQ) 12/03/2025 12/03/2024 SDOH Screening 12/03/2025 12/03/2024 Tobacco Screening 12/03/2025 12/03/2024 Pap Smear 09/18/2027 09/17/2024, 02/10/2021 DTaP/Tdap/Td Vaccines (8 - Td or Tdap) [...] on patient's age to complete this topic HIV Screening Completed 11/06/2023 Meningococcal B Vaccine Aged Out No l onger eligible based on patient's age to complete this topic Pneumococcal Vaccine: Pediatrics (0 to 5 Years) and At-Risk Patients (6 to 49) Years Aged Out No longer eligible based on patient's age to complete this topic RSV under 20 months Aged Out No longe r eligible based on patient's age to complete this topic Rotavirus Vaccines Aged Out No longer eligible based on patient's age to complete this topic Procedures Procedure Name Priority Date/Time Associated Diagnosis Comments CHLAMYDIA/N. GONORRHOEAE RNA, TMA, UROGENITAL Routine 12/03/2024 1:40 PM EDT Encntr screen for infections w sexl mode of transmiss BACTERIAL VAGINOSIS PANEL Routine 12/03/2024 1:40 PM EDT Encntr screen for infections w sexl mode of transmiss POCT , URINE Routine 12/03/2024 1:30 PM EDT Abnormal uterine bleeding POCT HEMOGLOBIN Routine 12/03/2024 1:25 PM EDT Abnormal uterine bleeding PAP SMEAR Routine 09/17/2024 12:00 AM EDT Screening for cervical cancer AMB REFERRAL TO UROLOGY Routine 09/13/2024 Kidney stone from Last 3 Months Results * (ABNORMAL) Bacterial Vaginosis Panel (12/03/2024 1:40 PM EDT) TRICHOMONAS VAGINALIS DETECTION BY PCR NOT DETECTED Not Detect [facility] BACTERIAL VAGINOSIS DETECTION BY PCR POSITIVE(A) Negative [facility] Comment:The BV organism targ ets of the Xpert Xpress MVP test can becommensal in women; Xpert Xpress MVP positive results forbacterial vaginosis should be considered in conjunction withother clinical and patient information to determine thedisease status. Organisms that are not detected by the XpertXpress MVP test have also been reported to be associatedwith BV and aerobic vaginitis.The Xpert Xpress MVP test performance has not been evaluatedin patients under the age of 14. JESSICA GROUP DETECTION BY PCR NOT DETECTED Not Detect [facility] Jessica glab krusei PCR NOT DETECTED Not Detect [facility] Swab Vaginal structure / Unknown 12/03/2024 1:40 PM EDT 12/03/2024 5:35 PM EDT us Nicolette Landa [facility] MICROBIOLOGY - GENERA L ORDERABLES Final Result [facility] [address] [place] [address] [phone] * Chlamydia/N. Gonorrhoeae RNA, TMA, Vagina (12/03/2024 1:40 PM EDT) CT PCR NOT DETECTED Not Detect. [facility] Comment:A not detected test result does not exclude the possibilityof infection because test results can be affected byimproper specimen collection, concurrent antibiotic therapy,or the number of organisms in the specimen which may bebelow the sensitivity of the test. As with many diagnostictests, results from the Xpert CT/NG assay should beinterpreted in conjunction with other laboratory andclinical data available to the clinician.Xpert CT/NG performance has not been evaluated in patientsless than 14 years of age. The assay should not be used forthe evaluationof suspected sexual abuse or for other medico-legalindications. Additional testing is recommended in anycircumstance when false positive or false negative resultscould lead to adverse medical, social or psychologicalconsequences. NG PCR NOT DETECTED Not Detect. [facility] Comment:A not detected test result does not exclude the possibilityof infection because test results can be affected byimproper specimen collection, concurrent antibiotic therapy,or the number of organisms in the specimen which may bebelow the sensitivity of the test. As with many diagnostictests, results from the Xpert CT/NG assay should beinterpreted in conjunction with other laboratory andclinical data available to the clinician.Xpert CT/NG performance has not been evaluated in patientsless than 14 years of age. The assay should not be used forthe evaluationof suspected sexual abuse or for other medico-legalindications. Additional testing is recommended in anycircumstance when false positive or false negative resultscould lead to adverse medical, social or psychologicalconsequences. Swab Vaginal structure / Unknown 12/03/2024 1:40 PM EDT 12/03/2024 5:[address] [facility] MI[facility] - GENERA L ORDERABLES Final Result [facility] [address] [place] [phone] * POCT , urine manually resulted (12/03/2024 1:30 PM EDT) Preg Test, Ur Negative Negative, Indeterminate, None Detected, Invalid, Specimen unsatisfactory for evaluation, Weakly Positive, 2+ QC Media Lot # [id number] Lot# Expiration Date ,026 Urine 12/03/2024 1:30 PM EDT [facility] POINT OF CARE TEST ENTER/ EDIT ORDERABLES Final Result * POCT hemoglobin docked device (12/03/2024 1:25 PM EDT) Hemoglobin 13.5 12.0 - 15.0 QC Media Lot # [id number] Lot# Expiration Date 861,026 Blood 12/03/2024 1:25 PM EDT [facility] POINT OF CARE TEST ENTER/ EDIT ORDERABLES Final Result * Pap Smear (09/17/2024 12:00 AM EDT) Swab Cervical swab / Unknown 09/17/2024 09/18/2024 10:15 AM EDT Narrative [facility] - 09/20/2024 10:37 AM EDT ----- ------- Name: Cande Hernandez Age/Sex: 29/F : 1995 Unit#: [id number] Attend Dr: Soniya Colon Re09/17/24 Status: [facility] Disch: ----- ------- SPEC : [id number] RECD: 09/18/24-1015 STATUS: JOSE RAUL BURCIAGA NUM: [id number] [place]: 09/17/24-[address]: Soniya Colon ENTERED: 09/18/24-1040 SP TYPE: Pap Smr OTHR DR: ORDERED: Pap Smear Interpretation Satisfactory for evaluation. Negative for intraepithelial lesion or malignancy. Mild inflammation. Clinical Information LMP: Unknown date Previous PAP test: Unknown date, WNL Material Received ThinPrep-Cervical ----- ------- Signed (signature on file) LEYDI Kyle (ASCP) 09/20/24 1037 ----- ------- END OF REPORT Soniya Colon MD LAB CYTOLOGY ORDERABLES Final Result [facility] [address] [place] [address] [phone] * Referral to Urology (09/13/2024) Soniya Colon MD OUTPATIENT REFERRAL ORDERABLES Final Result from Last 3 Months [facility] - [facility]SN PARTIAL (MEDICAID) Care Teams Electric Truck Driver Relationship Specialty Start Date End Date Soniya Colon MD [address] [place] [address] PCP - General Family Medicine 01/19/21
--- OUTSIDE RECORDS SUMMARY | 2024-12-12 15:58 | XMS_ITS | Data Portability ---
Author Organization [place] [facility], Allergy Address [address] [address] Care Team Providers Care Project Design Engineer Name Role Phone MAGY MANUEL Primary Care [...] Details Recorded Time Abnormal auditory percepti on 75758983 Active 2022 Other abnormal auditory percepti ons, bilatera l; Note: Date Diagnose d: 3 3:37 PM (H93.293 ) Not Available [facility] 4 02:45:42 Infectiv e otitis externa of bilatera l ears [id number] 04858 Completed 202212/29/2023 Other infectiv e otitis externa, bilatera l; Note: Date Diagnose d: 3 2:50 PM (H60.393 ) Not Available [facility] 4 02:45:39 Acute sinusiti s 33705382 Active 2024 ARSEN GOODMAN PA-C [address] [place] [address],[facility] [address], [facility] [place], [phone] , [facility] - [facility] 5 15:47:08 Problem Notes None recorded. Medical Equipment None Reported. Allergies Allergen ID Allergen Name Allergen Category Reaction Reaction Severity Criticality Documentation Date Start Date Code Code System Note Provider Name and Address Organization Details Recorded Time 498774 Bactrim medicatio n Not available Not available Not available 10/10/2023 91573 9 RxNorm React ion: Lip swell ing; Not Available [facility] 4 01:08:18 947525 terbinafi ne medicatio n facial swelling Not available Not available 10/10/2023 73046 RxNorm React ion: Facia l swell ing; Not Available [facility] 4 01:08:20 Medications Name Sig [...] 0.35 mg tablet active Medicati on ID: [id number] B rand Name: norethin drone (contrac eptive) [...] a day 08/28 completed Medicati on ID: [id number] D uration Value: 14 Brand Name: Ciprodex [...] a day 08/28 completed Medicati on ID: [id number] D uration Value: 7 Brand Name: fluocino lone acetonid e oil Send Method: E-Prescr ibed Sub s Allowed: subs OK Medic ationGen ericName : fluocino lone acetonid e oil Not Available Not Available Not Available M-Raheem Plus 27 mg iron-1 mg tablet 08/28 completed Medicati on ID: [id number] B rand Name: M-Raheem Plus Sen d Method: E-Prescr ibed Sub s Allowed: subs OK Speci al Instruct ion: TAKE 1 TABLET BY MOUTH EVERY DAY Medi cationGe nericNam e: M- Plus Not Available Not Available Not Available Vitals Date Recorded Body height Body mass index (BMI) Body weight Provider Name and Address Organization Details Last Updated DateTime 08/28/2024 157.48 cm 32.7 kg/m2 36107.03 g MAR HARRY [place] [facility] 08/28/2024 15:22:52 Social History None recorded. Functional Status None recorded. Mental Status None recorded. Family History Nothing Reported. Medical History No medical history recorded. Gynecological HistoryNo gynecological history recorded. Obstetrics History GPAL:G 0 P 0 0 0 0 Past Encounters Encounter ID Performer Location Encounter Start Date Encounter Closed Date Diagnosis/Indication Diagnosis SNOMED-CT Code Diagnosis ICD10 Code Diagnosis Note [id number] ARSEN GOODMAN PA-C [facility] [address] [address] 08/28/2024 15:13:18 08/28/2024 15:54:21 Abnormal auditory perception 80252334 H93.293 Acute sinusitis 01828967 J01.90 Health Concerns Section Related Observation LastModified by Organization Detai ls LastModified Time None Recorded Concern Status LastModified by Organization Details LastModified Time None Recorded Advance Directives Directive None Recorded Payers Insurance Date Sequence Insurance Name Policy Number Policy Irizarry Covered Member ID Irizarry Member ID Guarantor Name 08/23/2024 1 [facility] [id number] Cande Hernandez [id number] Cande Hernandez 08/28/2024 1 [place] [facility] [place] [id number] Cande Hernandez [id number] Cande Hernandez Notes Date Note Type Note [...] history of seasonal allergies. PAULETTE CHEEK MD [address] [place] [address], [phone], [facility] - [facility] 08/29/2024 10:41:39 OBGyn Episode No OBEpisode recorded.
== END 2024-12-12 15:17 | disposition home or self-care (01) ==
LOC: HO.US 15:16
PROVIDERS: PCP General Practice; Visit Provider Advanced Practice Midwife
DX: N93.9 Abnormal uterine and vaginal bleeding, unspecified (principal)
CPT/HCPCS: 76830; 76856

== ENCOUNTER → 2024-12-12 15:17 | Outpatient (BNV) | payer BC, SELFPAY | PROVIDERS: PCP General Practice; Visit Provider Radiology Diagnostic Radiology | DX: N93.9 Abnormal uterine and vaginal bleeding, unspecified (principal) | CPT/HCPCS: 76830; 76856 ==

== ENCOUNTER 2025-01-14 15:39 | Outpatient (REF) | payer BC, SELFPAY ==
--- OUTSIDE RECORDS SUMMARY | 2025-01-14 16:57 | XMS_ITS | Clinical Summary ---
Author Organization [facility] Address [address] [address] Phone Care Team Providers Care Pressure Steamer Tender Name Role Phone Soniya Colon MD Primary Care Provider + Allergies Active Allergy Reactions Criticality Noted Date Comments Sulfamethoxazole-Trimetho prim Hives 04/06/2023 Other Reaction(s): Terbinafine Terbinafine Swelling 04/06/2023 SWOLLEN LIPS [place] Anaphylaxis High 11/10/2023 Medications SUMAtriptan (IMITREX) 50 MG tablet TAKE 1 TABLET BY MOUTH EVERY 2 HOURS NEEDED FOR MIGRAINE HEADACHE DO NOT EXCEED 2 DOSES/24 HRS 3 Active metoclopramide HCl (REGLAN) 5 MG tablet TAKE 1 TAB BY MOUTH IF NEEDED EACH DAY (PART OF MIGRAINE COCKTAIL WITH BENADRYL) FOR UP TO 15 DAYS 3 Active butalbital-acet aminophen-caffe ine (FIORICET, ESGIC) 50-325-40 mg per tablet Take 1 tablet by mouth every 6 (six) hours as needed. 3 Active vitamins with ferrous fumarate- folic acid ( MULTIVITAMINS) 28 mg iron- 800 mcg Tab Take by mouth. 2 Active meloxicam (MOBIC) 7.5 MG tablet TAKE 1 TABLET (7.5 MG) BY MOUTH 2 TIMES DAILY FOR 14 DAYS. 4 Active acetaminophen (TYLENOL) 325 mg tablet Take 2 tablets (650 mg total) by mouth every 6 (six) hours as needed. 4 Active ibuprofen (ADVIL,MOTRIN) 200 MG tablet Take 3 tablets (600 mg total) by mouth every 6 (six) hours as needed for pain (specific location in comments). Active oxyCODONE 5 MG immediate release tablet Take 1 tablet (5 mg total) by mouth every 6 (six) hours as needed. Pt. may request partial fill 4 tablet Active docusate sodium (COLACE) 100 MG capsule Take 1 capsule (100 mg total) by mouth 2 (two) times a day. While taking narcotics and until regular BM pattern is establsihed Active Active Problems No known active problems Family History Medical History Relation Comments Diabetes Mother Relation Status Comments Father Alive Mother Alive Social History Tobacco Use Types Packs/Day Years Used Date Smoking Tobacco: Never Passive Smoke Exposure: Never Smokeless Tobacco: Never Tobacco Cessation:Counseling Given: Not Answered Alcohol Use Standard Drinks/Week Comments Yes 0 (1 standard drink = 0.6 oz pur e alcohol) monthly Education Answer Date Recorded Are you interested in more education? Not on vi e 03/27/2023 Are you concerned about learning? Not on file 03/27/2023 No 03/27/2023 No 03/27/2023 Digital Access Answer Date Recorded No 03/27/2023 No 03/27/2023 Reliable internet access at home? Not on file 03/27/2023 Device with a working camera? Not on file Comments No Sex and Gender Information Value Date Recorded Sex Assigned at Not on file Legal Sex Female 12:59 PM EDT Gender Identity Not on file Sexual Orientation Not on file Last Filed Vital Signs Vital Sign Reading Time Taken Comments Blood Pressure 114/96 11/16/2023 4:00 PM EDT Pulse 89 11/16/2023 4:00 PM EDT Temperature 36.4 C (97.5 F) 11/16/2023 3:45 PM EDT Respiratory Rate 15 11/16/2023 4:00 PM EDT Oxygen Saturation 96% 11/16/2023 4:00 PM EDT Inhaled Oxygen Concentration - - Weight 84.4 kg (186 lb) 11/16/2023 1:00 PM EDT Height 157.5 cm (5' 2 ) 11/16/2023 1:00 PM EDT Body Mass Index 34.02 11/16/2023 1:00 PM EDT Plan of Treatment Health Maintenance Due Date Last Done Comments DEPRESSION SCREENING 2008 PAP SMEAR 2017 COVID-19 VACCINE ( season) 2024 02/11/2022, 07/16/2021, 10/17/2020, Additional history exists Adult Td,Tdap Booster 05/16/2029 05/16/2019, 009 HIB VACCINES Completed 11/26/1997, 05/1996, 1996 HEPATITIS A VACCINES Completed 04/14/2016, 12/27/19 15 MENINGOCOCCAL VACCINES (ACWY) Aged Out 05/16/2019, 01/12/2009 No longer eligibl e based on patient's age to complete this topic HEPATITIS C SCREENING Completed 11/06/2023 HIV ONE-TIME SCREENING (18-65 YEARS) Completed 11/06/2023 SMOKING STATUS SCREENING (Once After 26 Yrs) Completed 11/16/2023 MENINGOCOCCAL VACCINES (B) Aged Out N o longer eligible based on patient's age to complete this topic PNEUMOCOCCAL VACCINES (0-49 years) Aged Out No longer eligible based on patient's age to complete this topic Medical Devices Not on file Procedures Procedure Name Priority Date/Time Associated Diagnosis Comments HEPATITIS C ANTIBODY, QUALITATIVE Routine 11/06/2023 10:34 AM EDT Screening for STD (sexually transmitted disease) from Last 3 Months or Most Recently Relevant to Health Maintenance Results * Hepatitis C antibody, qualitative (11/06/2023 10:34 AM EDT) HCV NON-REACTIV E NON-REACTI VE [facility] Blood 11/06/2023 10:3 4 AM EDT 11/06/2023 10:42 AM EDT us Miguel Aguayo MD LAB BLOOD ORDERABLES Final Re sult [address] [address] from Last 3 Months or Most Recently Relevant to Health Maintenance Insurance [employer] Member Subscriber Plan / Payer (Ef fective 2022-Present) Name:David Cande Relation to Subscriber:Self Name:Cande Hernandez Payer ID:Not on file Type:PPO Address: [address] [employer] Member Subscriber Plan / Payer (Ef fective 2022-) Name:David Cande Relation to Subscriber:Self Name:David Cande Payer ID:Not on file Type:PPO Address: [address] [facility] Advance Directives For more information, please contact: [phone] (9AM - 5PM Delisa/[facility], Monday-Monday) Documents on File Type Date Recorded Patient Manufacturing Engineering Manager Expl anation Healthcare Proxy 11/17/2023 4:31 PM Care Teams Pressure Steamer Tender Relationship Specialty Start Date End Date Soniya Colon MD PCP - General Family Medicine 03/27/23 Additional Source Comments The information contained in this document represents components of the legal health record. It is not the complete legal health record.[facility]
--- OUTSIDE RECORDS SUMMARY | 2025-01-14 16:57 | XMS_ITS | Clinical Summary ---
Author Organization [employer] [facility] ity Address [address] [place] [address] Care Team Providers Care College Football Coach Name Role Phone Unavailable Primary Care Provider [...] Cervical Cancer Screening: P ap Smear 2017 HIV Screening 04/26/2022 Hepatitis C Screening 04/26/2022 Social Influencers of Health Screening 04/26/2022 COVID-19 Vaccine ( - 2023-2 5 season) 2024 Depression Screening 05/29/2024 Influenza Vaccine (#1) 2025 HIB Vaccines Aged [...]
--- OUTSIDE RECORDS SUMMARY | 2025-01-14 16:57 | XMS_ITS | Clinical Summary ---
Author Organization [employer] Address [address] [place] [address] [address] [place] [address] Care Team Providers Care Personal Lines Insurance Agent Name Role Phone Soniya Colon MD Primary Care Provider [phone] Allergies Active Allergy Reactions Criticality Noted Date Comments Black [place] Flavoring Agent (Non-Screening) Anaphylaxis High 11/10/2023 Sulfamethoxazole [...] 5-7 days 03/24/20 22 Active sodium chloride ([place]estone) 0.65 % nasal spray 2 sprays in each nostril 4x/day prn 03/24/20 22 Active fluticasone (Flonase) 50 MCG/ACT nasal spray SPRAY 1 SPRAY INTO EACH NOSTRIL TWICE A DAY FOR 30 DAYS 10/23/19 23 Active neomycin-polymyxin -hydrocortisone (Cortisporin) 3.5-45264-8 otic suspension INSTILL 4 DROPS TO AFFECTED [...] DAY 02/17/20 23 Active neomycin-polymyxin -dexAMETHasone (Maxitrol) 3.5-58256-9.1 ophthalmic suspension INSTILL 1 DROP INTO AFFECTED [...] Active Vitamin A (beta carotene) 3 MG (47829 UT) tablet Take 1 tablet by mouth Once per day. 90 tablet 10/16/19 24 Active amitriptyline (Elavil) 10 MG tablet Take 1 tablet (10 mg) by mouth at bedtime. 30 tablet 3 05/17/20 24 Active Drospirenone (Slynd) 4 MG tablet Take 1 tablet by mouth Once per day. 28 tablet 11 12/04/19 25 Active propranolol (Inderal) 10 MG tabletIndications: Situational anxiety Take 1 tablet by mouth 1 hour prior to class/exam as needed. 30 tablet 12/26/19 25 Active topiramate (Topamax) 50 MG tablet Take 50 mg by mouth at bedtime. Take 1/2 tab for 2 weeks, then increase to full tab if no side effects 90 tablet 1 03/27/20 24 025 Discontin ued(Other ) phentermine 15 MG capsule Take 1 capsule (15 mg) by mouth before breakfast. 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 Would like pharmacological assistance, we reviewed [...] Encounters Date Type Department Care Team Description 01/14/2025 3:15 PM EDT Office Visit [facility] MEDICINE [address] [place] [phone] Rayo Escobar CNM Abnormal uterine bleeding 01/14/2025 Travel 01/07/2025 Orders Only [facility] MEDICINE [address] [place] [phone] Rayo Escobar CNM Von Willebrand disease (CMS/HCC) (Primary Dx) 01/06/2025 Telephone [facility] [place] [address] Kaitlyn Lozano RN 12/25/2024 6:20 PM EDT Office Visit [facility] WALK-IN CENTER [address] [place] [phone] Renetta Finney NP Situational anxiety (Primary Dx); Elevated blood pressure reading 12/25/2024 Travel 12/04/2024 Orders Only [address] [address] Rayo Escobar CNM 12/04/2024 Results Follow-Up [address] [address] Rayo Escobar CNM Bacterial Vaginosis Panel, POCT , urine manually resulted, POCT hemoglobin docked device, Additional followed-up results: 2 12/03/2024 1:00 PM EDT Office Visit [address] [address] Rayo Escobar CNM Abnormal uterine bleeding (Primary Dx); Encntr screen for infections w sexl mode of transmiss 12/03/2024 Travel 12/02/[address] [address] Rayo Escobar CNM chart prep 12/02/2024 Travel 11/26/[address] [address] Soniya Colon MD Nurse Triage from Last 3 Months Immunizations Immunization Administration [...] [id number] 05/16/2019,01/13/20 09 Pfizer Covid-19 Vaccine 12+ 07/16/2021,,09/26/2020 Pfizer Covid-19 Vaccine 12+ benitez-sucrose (Tafoya Cap) [...] Recorded No desire to become (finding) 0 01/14/2025 Sex and Gender Information Value Date Recorded Sex Assigned at Female 03/28/2022 10:16 AM EDT Legal Sex Female 10:16 AM EDT Gender Identity Female 03/28/2022 10:16 AM EDT Sexual Orientation Straight 03/28/2022 10 :16 AM EDT Last Filed Vital Signs Vital Sign Reading Time Taken Comments Blood Pressure 120/78 01/14/2025 3:21 PM EDT Pulse 90 01/14/2025 3:21 PM EDT Temperature 36.8 C (98.2 F) 01/14/2025 3:21 PM EDT Respiratory Rate 16 12/25/2024 6:22 PM EDT Oxygen Saturation 99% 01/14/2025 3:21 PM EDT Inhaled Oxygen Concentration - - Weight 84 kg (185 lb 3.2 oz) 01/14/2025 3:21 PM EDT Height 157.5 cm (5' 2 ) 12/25/2024 6:22 PM EDT Body Mass Index 33.87 12/25/2024 6:22 PM EDT Plan of Treatment Upcoming Encounters Date Type Department Care Team (Late st Contact Info) Description 01/31/2025 2:30 PM EDT Office Visit [facility] OPTOMETRY [address] [place] [address] IndioKateyln iqbal, OD [address] [place] [address] Health Maintenance Due Date Last Done Comments Dental Oral Exam 1996 Dental Prophylaxis 1996 Dental X-Ray: Bitewings 1996 Dental X-Ray: Full Mouth 1996 Hepatitis C Screening 2014 COVID-19 Vaccine ( season) 2024 02/11/2022, 07/16/2021, 07/16/2021, Additional history exists Influenza Vaccine (#1) 2025 , 02/11/2022, 03/04/2020, Additional history exists Depression Screening 03/25/2025 03/25/2024, 03/25/20 Alcohol/Substance Use Screening 05/17/2025 05/17/2024 Disability Screening 12/03/2025 12/03/2024 SDOH Screening 12/03/2025 12/03/2024 Family Planning (PISQ) 01/14/2026 01/14/2025 Tobacco Screening 01/14/2026 01/14/2025 Pap Smear 09/18/2027 09/17/2024, 02/10/2021 DTaP/Tdap/Td Vaccines (8 - Td or Tdap) 05/16/2029 05/16/2019, 01/12/2009, 11/07/2000, Additional history exists Zoster Vaccines (1 of 2) 2046 RSV Patients and Patients Aged 60 years or older (1 - 1-dose 75+ series) 09/02/2071 HIB Vaccines Completed 12/26/1997, 07/0 05/1997, 03/28/1997, Additional history exists Hepatitis B [...] Date/Time Associated Diagnosis Comments POCT HEMOGLOBIN Routine 01/14/2025 3:29 PM EDT Abnormal uterine bleeding US PELVIS TRANSVAGINAL Urgent 12/12/2024 3:40 PM EDT Abnormal uterine bleeding CHLAMYDIA/N. GONORRHOEAE RNA, TMA, UROGENITAL Routine 12/03/2024 [...] 12:00 AM EDT Screening for cervical cancer from Last 3 Months or Most Recently Relevant to Health Maintenance Results * POCT Hemoglobin (01/14/2025 3:29 PM EDT) Only the most recent of2 resultswithin the time period is included. Hemoglobin 12.7 12.0 - 15.0 QC Media Lot # [id number] Lot# Expiration Date [id number] Blood 01/14/2025 3:29 PM EDT Rayo Escobar CNM POINT OF CARE TEST ENTER/ EDIT ORDERABLES Final Result * US Pelvis Transvaginal (12/12/2024 3:40 PM EDT) Anatomical Region Laterality Modality Pelvis Ultrasound 12/12/2024 3:40 PM EDT Narrative 12/12/2024 4:33 PM EDT [place] [address] Ultrasound Report Signed Patient: Cande Hernandez MR#: [id number] : 1995 Acct:[id number] Age/Sex: 29 / F ADM Date: 12/12/24 Loc: HO.US Attending Dr: Rayo Escobar CNM Ordering Physician: RAYO ESCOBAR CNM Date of Service: 12/12/24 Procedure(s): US pelvic and transvaginal Accession Number(s): [id number] cc: Soniya Colon; RAYO ESCOBAR CNM EXAMINATION: US PELVIS CLINICAL INFORMATION: History of endometrial polyp, abnormal uterine bleeding COMPARISON: Ultrasound 01/07/[address] 05/08/2023 TECHNIQUE: Ultrasound of the pelvis is performed using both transabdominal and transvaginal transducers along with Doppler. Transvaginal imaging is performed due to inadequate visualization transabdominally. FINDINGS: Uterus: The uterus is anteverted and measures 8 x 3 x 4.4 cm. The double wall endometrial thickness is 9 mm. The uterus is smooth in contour and has normal myometrial echogenicity. No visible fibroid. Adnexa: Both ovaries are visualized. There is normal color flow to the adnexa. There is no ovarian torsion. Trace free fluid is present in the left adnexa. Right ovary measures 2.9 x 1.7 x 1.7 cm cm. There is a 7 mm nonspecific echogenic focus. Left ovary measures 2.7 x 1.4 x 1.7 cm with a few peripheral follicles. US/US pelvic and transvaginal IMPRESSION: Unremarkable pelvic ultrasound Electronically signed by: David Downey MD 12/12/2024 04:30 PM EDT RP Dictated By: David Downey MD Signed By: <Electronically signed by David Downey MD in [place]> 12/12/24 1630 DD/ 1540 TD/TT: 12/12/24 1556 Trading Floor Operator: Procedure Note Donotuseinterpreter, Image - 12/12/2024 [place] [address] Ultrasound Report Signed Patient: Cande Hernandez KMR#: [id number] : 1995Acct:[id number] Age/Sex: Date: 12/12/24 Loc: HO.US Attending Dr: Rayo Escobar CNM Ordering Physician: RAYO ESCOBAR CNM Date of Service: 12/12/24 Procedure(s): US pelvic and transvaginal Accession Number(s): [id number] cc: Soniya Colon; RAYO ESCOBAR CNM EXAMINATION: US PELVIS CLINICAL INFORMATION: History of endometrial polyp, abnormal uterine bleeding COMPARISON: Ultrasound 01/07/[address] 05/08/2023 TECHNIQUE: Ultrasound of the pelvis is performed using both transabdominal and transvaginal transducers along with Doppler. Transvaginal imaging is performed due to inadequate visualization transabdominally. FINDINGS: Uterus: The uterus is anteverted and measures 8 x 3 x 4.4 cm. The double wall endometrial thickness is 9 mm. The uterus is smooth in contour and has normal myometrial echogenicity. No visible fibroid. Adnexa: Both ovaries are visualized. There is normal color flow to the adnexa. There is no ovarian torsion. Trace free fluid is present in the left adnexa. Right ovary measures 2.9 x 1.7 x 1.7 cm cm. There is a 7 mm nonspecific echogenic focus. Left ovary measures 2.7 x 1.4 x 1.7 cm with a few peripheral follicles. US/US pelvic and transvaginal IMPRESSION: Unremarkable pelvic ultrasound Electronically signed by: David Downey MD 12/12/2024 04:30 PM EDT Dictated By: David Downey MD Signed By: <Electronically signed by David Downey MD in OV> 12/12/24 1630 DD/ 1540 TD/TT: 12/12/24 1556 Trading Floor Operator: Rayo Escobar CNM IMG US PROCEDURES Edited Result - Final * (ABNORMAL) Bacterial Vaginosis Panel (12/03/2024 1:40 PM EDT) TRICHOMONAS VAGINALIS DETECTION BY PCR NOT DETECTED Not Detect [facility] BACTERIAL VAGINOSIS DETECTION BY PCR POSITIVE(A) Negative [facility] Comment:The BV organism targ ets of [...] DETECTION BY PCR NOT DETECTED Not Detect [facility] Jessica glab krusei PCR NOT DETECTED Not Detect [facility] Swab Vaginal structure / Unknown 12/03/2024 1:40 PM EDT 12/03/2024 5:35 PM EDT Rayo Escobar CNM LAB MICROBIOLOGY - GENERA L ORDERABLES Final Result [facility] [address] [place] [phone] * Chlamydia/N. Gonorrhoeae RNA, TMA, Vagina (12/03/2024 1:40 PM EDT) CT PCR NOT DETECTED Not Detect. [facility] Comment:A not detected test result does [...] psychologicalconsequences. NG PCR NOT DETECTED Not Detect. [facility] Comment:A not detected test result does [...] PM EDT 12/03/2024 5:35 PM EDT us Rayo [facility] LAB MICROBIOLOGY - GENERA L ORDERABLES Final Result [facility] [address] [place] [phone] * POCT , urine manually resulted (12/03/2024 1:30 PM EDT) Preg Test, Ur Negative Negative, Indeterminate, None Detected, Invalid, Specimen unsatisfactory for evaluation, Weakly Positive, 2+ QC Media Lot # [id number] Lot# Expiration Date [id number] Urine 12/03/2024 1:30 PM EDT Rayo [facility] POINT OF CARE TEST ENTER/ EDIT ORDERABLES Final Result * Pap Smear (09/17/2024 12:00 AM EDT) Swab Cervical swab / Unknown 09/17/2024 09/18/2024 10:15 AM EDT Narrative [facility] - 09/20/2024 10:37 AM EDT ----- ------- Name: Cande Hernandez Age/Sex: 29/F : 1995 Unit#: [id number] Attend Dr: Soniya Colon Re09/17/24 Status: DEP REF Location: HO.HHCLNP Disch: ----- ------- SPEC : [id number] RECD: 09/18/24-1015 STATUS: JOSE RAUL BURCIAGA NUM: [id number] [place]: 09/17/24-[address]: Soniya Colon ENTERED: 09/18/24-1040 SP TYPE: Pap Smr OT : ORDERED: Pap Smear Interpretation Satisfactory for evaluation. Negative for intraepithelial lesion or malignancy. Mild inflammation. Clinical Information LMP: Unknown date Previous PAP test: Unknown date, WNL Material Received ThinPrep-Cervical ----- ------- Signed (signature on file) LEYDI Kyle (ASCP) 09/20/24 1037 ----- ------- END OF REPORT Soniya Colon MD LAB CYTOLOGY ORDERABLES Final Result [facility] [address] [place] [phone] from Last 3 Months or Most Recently Relevant to Health Maintenance Insurance [facility] H[facility] [place] [facility] - [facility] PARTIAL (MEDICAID) Care Teams Personal Lines Insurance Agent Relationship Specialty Start Date End Date Soniya Colon MD [address] [place] [phone] PCP - General Family Medicine 01/19/21
[2025-01-14 18:52] LABS: Iron 35 mcg/dL (30-160); Percent Iron Saturation 10 % (15-50); Total Iron Binding Capacity 347 mcg/dL (228-428); Unsaturated Iron Binding 312 ug/dL
[2025-01-14 19:07] LABS: Hematocrit 39.6 % (37.0-47.0); Hemoglobin 13.0 g/dl (12.0-16.0); Mean Corpuscular HGB Conc 32.8 g/dl (31.0-35.0); Mean Corpuscular Hemoglobin 27.7 pg (27.0-33.0); Mean Corpuscular Volume 84.4 fL (80.0-98.0); NRBC Abs Auto 0.000 X10*3/uL (0.0-0.012); NRBC Pct Auto 0.0 /100WBC (0.0-0.2); Platelet Count 277 X10*3/uL (160-400); Red Blood Count 4.69 X10*6/uL (4.20-5.50); White Blood Count 8.8 X10*3/uL (4.8-10.8)
[2025-01-14 19:10] LABS: Ferritin 64 ng/mL (10-122)
[2025-01-14 19:53] LABS: Free T4 (Free Thyroxine) 1.13 ng/dL (0.71-1.85)
== END 2025-01-14 15:40 | disposition home or self-care (01) ==
LOC: HO.HHCL 15:39
PROVIDERS: PCP General Practice; Visit Provider Advanced Practice Midwife
DX: N93.9 Abnormal uterine and vaginal bleeding, unspecified (principal)
CPT/HCPCS: 36415; 82728; 83540; 84439; 84443; 85027

== ENCOUNTER 2025-02-26 11:27 | Outpatient (REF) | payer BC, SELFPAY ==
--- NOTE | ~2025-02-26 | XR_ITS ---
EXAMINATION: XR CHEST 2 VIEWS HISTORY: tachycardia, cough, crackles Left upper lung COMPARISON: Comparison is made with the prior examination dated 01/29/2019. FINDINGS: PA and lateral views of the chest are submitted. There are low lung volumes. There is airspace opacity in the left upper and lower lobes, consistent with pneumonia. There may be additional airspace opacity in the right middle lobe. There is no pleural effusion, pneumothorax, or pulmonary vascular congestion. The heart is normal in size. The bones are intact. There are surgical clips in the right upper quadrant. XR/XR chest 2V IMPRESSION: Low lung volumes. Left upper and lower lobe pneumonia. Possible additional right middle lobe pneumonia. Electronically signed by: Chai Acuña MD 02/26/2025 11:44 AM EDT
--- OUTSIDE RECORDS SUMMARY | 2025-02-26 10:20 | XMS_ITS | Encounter Summary ---
Author Organization [employer] Address [address] [place] [address] Care Team Providers Care Ad Operations Specialist Name Role Phone Soniya Colon MD Primary Care Provider [phone] Reason for Visit * Reason Comments Cough Encounter Details Date Type Department Care Team ([facility] Contact Info) Description 02/26/2025 10:20 AM EDT Office Visit [facility] [address] [place] [address] Alissa May MD [address] [place] [address] Moderate persistent asthma with exacerbation (Primary Dx); Cough, unspecified type; Fever, unspecified fever cause; Respiratory crackles 1/2 way up posterior chest wall on left side Social History Tobacco Use Types Packs/Day Years [...] the past 12 months, has t he [employer], gas, oil or water company threatened to shut off services in your home? No 12/03/2024 Depression Answer Date Recorded Patient Health Questionnaire-2 Score 0 03/25/2024 Internet Access Answer Date Recorded Internet Access Q1 Yes 12/03/2024 Internet Access Q2 Not on file 12/03/2024 Comments No Sex and Gender Information Value Date Recorded Sex Assigned at Female 03/28/2022 10:16 AM EDT Legal Sex Female 10:16 AM EDT Gender Identity Female 03/28/2022 10:16 AM EDT Sexual Orientation Straight 03/28/2022 10 :16 AM EDT documented as of this encounter Last Filed Vital Signs Vital Sign Reading Time Taken Comments Blood Pressure 142/94 02/26/2025 10:15 AM EDT Pulse 117 02/26/2025 10:15 AM EDT Temperature 37 C (98.6 F) 02/26/2025 10:15 AM EDT Respiratory Rate 24 02/26/2025 10:15 AM EDT Oxygen Saturation - - Inhaled Oxygen Concentration - - Weight 83.9 kg (185 lb) 02/26/2025 10:15 AM EDT Height 157.5 cm (5' 2 ) 02/26/2025 10:15 AM EDT Body Mass Index 33.84 02/26/2025 10:15 AM EDT documented in this encounter Progress Notes * Alissa May MD - 02/26/2025 10:20 AM EDT Images from the original note were not included. Subjective Patient ID: Cande Hernandez is a 29 y.o. female who presents for Cough. Cande is a 29-year-old female patient of Dr. Colon here for sick visit. Patient has been coughing and slightly short of breath with exercise for the past 3 days. She has a history of von Willebrand disease for which she sees any commodity sales deliverer at [facility]. Also has a history of mild intermittent asthma for which she usually only takes albuterol. Patient has been using albuterol but not improving her symptoms. 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 Cough This is a new problem. The current episode started in the past 7 days. The problem has been unchanged. The problem occurs constantly. The cough is Productive of sputum. Associated symptoms include headaches, myalgias, nasal congestion, rhinorrhea, shortness of breath and wheezing. Pertinent negatives include no chest pain, chills, ear pain, fever, heartburn, hemoptysis or rash. Nothing aggravatesthe symptoms. She has tried a beta-agonist inhaler and rest for the symptoms. The treatment provided no relief. Her past medical history is significant for asthma. There is no history of pneumonia. Review of Systems Constitutional: Negative for activity change, chills, fever and unexpected weight change. HENT: Positive for rhinorrhea. Negative for ear pain. Respiratory: Positive for cough, chest tightness, shortness of breath and wheezing. Negative for hemoptysis. Cardiovascular: Negative for chest pain, palpitations and leg swelling. Gastrointestinal: Negative for abdominal pain, blood in stool and heartburn. Endocrine: Negative for polydipsia and polyuria. Genitourinary: Negative for decreased urine volume, difficulty urinating, dysuria and hematuria. Musculoskeletal: Positive for myalgias. Negative for arthralgias and gait problem. Skin: Negative for color change and rash. Neurological: Positive for headaches. Negative for dizziness. Hematological: Negative for adenopathy. Psychiatric/Behavioral: Negative for dysphoric mood, hallucinations, sleep disturbance and suicidalideas. The patient is not nervous/anxious. Objective BP (!) 142/94 (BP Location: Left arm, Patient Position: Sitting, BP Cuff Size: Adult) Pulse (!) 117 Temp 98.6 ??F (37 ??C) (Temporal) Resp 24 Ht 5' 2 (1.575 m) Wt 185 lb (83.9 kg) LMP 12/28/2024 (Exact Date) BMI 33.84 kg/m?? Physical Exam Vitals reviewed. Constitutional: General: She is not in acute distress. HENT: Head: Normocephalic. Right Ear: Tympanic membrane and ear canal normal. Left Ear: Tympanic membrane and ear canal normal. Nose: Congestion present. Mouth/Throat: Mouth: Mucous membranes are moist. Cardiovascular: Rate and Rhythm: Regular rhythm. Tachycardia present. Heart sounds: Normal heart sounds. No murmur heard. No gallop. Pulmonary: Effort: No accessory muscle usage, respiratory distress or retractions. Breath sounds: Examination of the left-upper field reveals wheezing, rhonchi and rales. Examinationof the left-middle field reveals wheezing, rhonchi and rales. Wheezing, rhonchi and rales present. Chest: Chest wall: No tenderness. Abdominal: Palpations: Abdomen is soft. Musculoskeletal: Right lower leg: No edema. Left lower leg: No edema. Skin: Findings: No rash. Neurological: Mental Status: She is alert and oriented to person, place, and time. Mental status is at baseline. Psychiatric: Behavior: Behavior normal. Assessment/Plan Diagnoses and all orders for this visit: Moderate persistent asthma with exacerbation Comments: TReated with duoneb in office and prednisone,taper sent to pharmacy for total of 1 week.Tested - x covid,flu and strep. Orders: - ipratropium-albuterol (Duo-Neb) 0.5-2.5 mg/3 mL nebulizer solution 3 mg - predniSONE (Deltasone) tablet 50 mg - XR Chest 2 Views; Future Cough, unspecified type - POCT Rapid Influenza B JOHNSON ID NOW - POCT Rapid Influenza A JOHNSON ID NOW - POCT Rapid Covid-19 JOHNSON ID NOW - ipratropium-albuterol (Duo-Neb) 0.5-2.5 mg/3 mL nebulizer solution 3 mg - predniSONE (Deltasone) tablet 50 mg - XR Chest 2 Views; Future Fever, unspecified fever cause - POCT Rapid Influenza B JOHNSON ID NOW - POCT Rapid Influenza A JOHNSON ID NOW - POCT Rapid Covid-19 JOHNSON ID NOW - ipratropium-albuterol (Duo-Neb) 0.5-2.5 mg/3 mL nebulizer solution 3 mg - predniSONE (Deltasone) tablet 50 mg - XR Chest 2 Views; Future Respiratory crackles 1/2 way up posterior chest wall on left side Comments: CXR STAT ordered, rule out SARBJIT pneumonia.Addendum : chest x-ray report shows SARBJIT and LLL pneumonia and possible RML pneumonia. Due to tachycardia and XRAY findings I spoke to patient and advised her to go to [facility] for evaluation and treatment.Patient agreed.We will call ER to notify. Orders: - XR Chest 2 Views; Future Other orders - albuterol 108 (90 Base) MCG/ACT inhaler; Inhale 2 puffs every 4 (four) hours. - predniSONE (Deltasone) 20 MG tablet; Take 2 tabs orally for 3 days, then 1 tab orally for 3 more days documented in this encounter Plan of Treatment Upcoming Encounters Date Type Department Care Team (Late st Contact Info) Description 07/02/2025 3:30 PM EST Office Visit [facility] [address] [place] [address] IndioKatelyn, OD [address] [place] [address] documented as of this encounter Procedures Procedure Name Priority Date/Time Associated Diagnosis Comments XR CHEST 2 VIEWS Routine 02/26/2025 11:4 8 AM EDT Cough, unspecified type Fever, unspecified fever cause Moderate persistent asthma with exacerbation Respiratory crackles 1/2 way up posterior chest wall on left side POCT INFLUENZA B (ID NOW RAPID MOLECULAR) Routine 02/26/2025 10:37 AM EDT Cough, unspecified type Fever, unspecified fever cause POCT INFLUENZA A (ID NOW RAPID MOLECULAR) Routine 02/26/2025 10:36 AM EDT Cough, unspecified type Fever, unspecified fever cause POCT COVID-19 AG JOHNSON ID NOW Routine 02/26/2025 10:35 AM EDT Cough, unspecified type Fever, unspecified fever cause documented in this encounter Results * XR Chest 2 Views (02/26/2025 11:48 AM EDT) Anatomical Region Laterality Modality Chest Radiographic Laney ging 02/26/2025 11:4 8 AM EDT Narrative 02/26/2025 11:46 AM EDT [facility] [address] [place] [address] XRay Report Signed Patient: Cande Hernandez MR#: [id number] : 1995 Acct:[id number] Age/Sex: 29 / F ADM Date: 02/26/25 Loc: .HHCX Attending Dr: Alissa May MD Ordering Physician: Alissa May MD Date of Service: 02/26/25 Procedure(s): XR chest 2V Accession Number(s): [id number] cc: Alissa May MD Reason for Exam: tachycardia, cough, crackles Left upper lung EXAMINATION: XR CHEST 2 VIEWS HISTORY: tachycardia, cough, crackles Left upper lung COMPARISON: Comparison is made with the prior examination dated 01/29/2019. FINDINGS: PA and lateral views of the chest are submitted. There are low lung volumes. There is airspace opacity in the left upper and lower lobes, consistent with pneumonia. There may be additional airspace opacity in the right middle lobe. There is no pleural effusion, pneumothorax, or pulmonary vascular congestion. The heart is normal in size. The bones are intact. There are surgical clips in the right upper quadrant. XR/XR chest 2V IMPRESSION: Low lung volumes. Left upper and lower lobe pneumonia. Possible additional right middle lobe pneumonia. Electronically signed by: Chai Acuña MD 02/26/2025 11:44 AM EDT Dictated By: Chai Acuña MD Signed By: <Electronically signed by Chai Acuña MD in OV> 02/26/25 1144 DD/ 1148 TD/TT: 02/26/25 1136 Cinetechnician: Procedure Note Keithter, Image - 02/26/2025 [facility] [address] [place] [address] XRay Report Signed Patient: Cande Hernandez KMR#: [id number] : 1995Acct:[id number] Age/Sex: FADM Date: 02/26/25 Loc: HO.HHCX Attending Dr: Alissa May MD Ordering Physician: Alissa May MD Date of Service: 02/26/25 Procedure(s): XR chest 2V Accession Number(s): [id number] cc: Alissa May MD Reason for Exam: tachycardia, cough, crackles Left upper lung EXAMINATION: XR CHEST 2 VIEWS HISTORY: tachycardia, cough, crackles Left upper lung COMPARISON: Comparison is made with the prior examination dated 01/29/2019. FINDINGS: PA and lateral views of the chest are submitted. There are low lung volumes. There is airspace opacity in the left upper and lower lobes, consistent with pneumonia. There may be additional airspace opacity in the right middle lobe. There is no pleural effusion, pneumothorax, or pulmonary vascular congestion. The heart is normal in size. The bones are intact. There are surgical clips in the right upper quadrant. XR/XR chest 2V IMPRESSION: Low lung volumes. Left upper and lower lobe pneumonia. Possible additional right middle lobe pneumonia. Electronically signed by: Chai Acuña MD 02/26/2025 11:44 AM EDT Dictated By: Chai Acuña MD Signed By: <Electronically signed by Chai Acuña MD in OV> 02/26/25 1144 DD/ 1148 TD/TT: 02/26/25 1136 Cinetechnician: us Alissa May MD IMG XR PROCEDURES Final Resul t * POCT Rapid Influenza B JOHNSON ID NOW (02/26/2025 10:37 AM EDT) Pathologist [facility] Influenza B Negative Negative, Indeterminate [facility] QC Media Lot # [id number] [facility] Lot# Expiration Date [facility] Swab 02/26/2025 10:3 7 AM EDT Alissa May MD POINT OF CARE TEST ENTER/EDIT ORDERABLES Final Result Performing Organization Address City/[facility] Care [facility]/ZIP Co de Phone Number [facility] [address] [place] [phone] * POCT Rapid Influenza A JOHNSON ID NOW (02/26/2025 10:36 AM EDT) [facility] Influenza A Negative Negative, Indeterminate [facility] QC Media Lot # [id number] [facility] Lot# Expiration Date [facility] Swab 02/26/2025 10:3 6 AM EDT Alissa May MD POINT OF CARE TEST ENTER/EDIT ORDERABLES Final Result Performing Organization Address [facility] de Phone Number [facility] [address] [place] [phone] * POCT Rapid Covid-19 JOHNSON ID NOW (02/26/2025 10:35 AM EDT) [facility] Coronavirus Antigen PCR Negative Negative, Indeterminate, None Detected, Invalid, Specimen unsatisfactory for evaluation, Weakly Positive, 2+ QC Media Lot # [id number] Lot# Expiration Date ,016 Swab 02/26/2025 10:3 5 AM EDT us Alissa May MD POINT OF CARE TEST ENTER/EDIT ORDERABLES Final Result documented in this encounter Visit Diagnoses Diagnosis Moderate persistent asthma with exacerbation- Primary Unspecified asthma, with exacerbation Cough, unspecified type Fever, unspecified fever cause Respiratory crackles 1/2 way up posterior chest wall on left side documented in this encounter Administered Medications Active Administered Medications - up to 3 most recent administrations Medication Order MAR Action Action Date Dose Rate Site predniSONE (Deltasone) tablet 50 mg 50 mg, Oral, Daily, First dose on Mon02/26/25 at 1045Indications:Cough, unspecified type,Fever, unspecified fever cause,Moderate persistent asthma with exacerbation Given 02/26/2025 10:45 AM EDT 50 mg Inactive Administered Medications - up to 3 most recent administrations Medication Order MAR Action Action Date Dose Rate Site ipratropium-albuterol (Duo-Neb) 0.5-2.5 mg/3 mL nebulizer solution 3 mg 3 mg, Nebulization, Once, On Mon02/26/25 at 1045, For 1 doseIndications:Cough, unspecified type,Fever, unspecified fever cause,Moderate persistent asthma with exacerbation Given 02/26/2025 10:45 AM EDT 3 mg documented in this encounter Additional Health Concerns Assessment Noted Time PHQ-9 Depression Total Score: 4 03/25/20 24 2:12 PM EDT documented as of this encounter Care Teams Ad Operations Specialist Relationship Specialty Start Date End Date Soniya Colon MD [address] [place] [phone] PCP - General Family Medicine 01/19/21 documented as of this encounter
--- OUTSIDE RECORDS SUMMARY | 2025-02-26 13:02 | XMS_ITS | Clinical Summary ---
Author Organization [employer] Address [address] [place] [address] 7 [place] [address] Care Team Providers Care Computerized Table Cutter Name Role Phone Soniya Colon MD Primary Care Provider [phone] Allergies Active Allergy Reactions Criticality Noted Date Comments Black [place] Flavoring Agent (Non-Screening) Anaphylaxis High 11/10/2023 Sulfamethoxazole [...] 2 tablets before bedtime. 03/24/20 22 Active betamethasone valerate (Valisone) 0.1 % cream Apply topically twice a day. 01/20/20 22 Active ibuprofen 400 MG tablet Take 1 tablet by mouth in the morning and 1 tablet at noon and 1 tablet in the evening and 1 tablet before bedtime. 01/20/20 22 Active Neomycin-Polymyxi n-HC 1 % solution instill 4 drops by otic route 3 times every day into affected ear(s) for 5-7 days 03/24/20 22 Active sodium chloride ([place]) 0.65 % nasal spray 2 sprays in each nostril 4x/day prn 03/24/20 22 Active neomycin-polymyxi n-hydrocortisone (Cortisporin) 3.5-64238-6 otic suspension INSTILL 4 DROPS TO AFFECTED [...] DAY 02/17/20 23 Active neomycin-polymyxi n-dexAMETHasone (Maxitrol) 3.5-55263-8.1 ophthalmic suspension INSTILL 1 DROP INTO AFFECTED EYE EVERY 4 HOURS FOR 7 DAYS 04/04/20 23 Active SUMAtriptan (Imitrex) 50 MG tablet TAKE 1 TABLET BY MOUTH EVERY 2 HOURS NEEDED FOR MIGRAINE HEADACHE DO NOT EXCEED 2 DOSES/24 HRS 12/30/19 23 Active benzonatate (Tessalon) 100 MG capsule TAKE 1 CAPSULE BY MOUTH TWICE A DAY NEEDED FOR COUGH FOR 7 DAYS. 08/10/19 24 Active doxycycline (Vibra-Tabs) 100 MG tablet Take 100 mg by mouth 2 times daily. 08/10/19 24 Active Vitamin A (beta carotene) 3 MG (86840 UT) tablet Take 1 tablet by mouth Once per day. 90 tablet 10/16/19 24 Active amitriptyline (Elavil) 10 MG tablet Take 1 tablet (10 mg) by mouth at bedtime. 30 tablet 3 05/17/20 24 Active albuterol 108 (90 Base) MCG/ACT inhaler Inhale 2 puffs every 4 (four) hours. 18 g 1 02/27/20 25 Active predniSONE (Deltasone) 20 MG tablet Take 2 tabs orally for 3 days, then 1 tab orally for 3 more days 9 tablet 02/27/20 25 Active albuterol 108 (90 Base) MCG/ACT inhaler Inhale 2 puffs every 4 (four) hours. 03/24/20 22 2024 Discontinued(R eorder (will not trigger notification to Pharmacy)) fluticasone (Flonase) 50 MCG/ACT nasal spray SPRAY 1 SPRAY INTO EACH NOSTRIL TWICE A DAY FOR 30 DAYS 10/23/19 23 2024 Discontinued(I neffective) ondansetron ODT (Zofran-ODT) 4 MG disintegrating tablet TAKE 1 TABLET BY MOUTH EVERY 6 TO 8 HOURS NEEDED FOR NAUSEA AND VOMITING 12/30/19 23 2024 Discontinued(T herapy completed) oxyCODONE (Oxy-IR) 5 MG immediate release capsule TAKE 1 CAPSULE BY MOUTH 3 TIMES A DAY NEEDED FOR PAIN FOR 3 DAYS 05/08/202024 Discontinued(T herapy completed) Drospirenone (Slynd) 4 MG tablet Take 1 tablet by mouth Once per day. 28 tablet 11 12/04/192024 Discontinued(S olive effects) propranolol (Inderal) 10 MG tabletIndications :Situational anxiety TAKE 1 TABLET BY MOUTH 1 HOUR PRIOR TO CLASS/EXAM NEEDED. 90 tablet 01/18/202024 Discontinued(I neffective) Hospital, Clinic, or Other Facility Administered Medication Ordered Dose Route Frequency Start Date End Date Status predniSONE (Deltasone) tablet 50 mgIndications:Cough, unspecified type,Fever, unspecified fever cause,Moderate persistent asthma with exacerbation 50 mg PO Daily 02/26/2025 Active ipratropium-albutero l (Duo-Neb) 0.5-2.5 mg/3 mL nebulizer solution 3 mgIndications:Cough, unspecified type,Fever, unspecified fever cause,Moderate persistent asthma with exacerbation 3 mg NEBULIZATION Once 02/26/2025 02/26/2025 Ended Active Problems Problem Noted Date Diagnosed Date [...] 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 Would like pharmacological assistance, we [...] 04/25/2022 Weight gain 04/25/2022 Von Willebrand disease (CMS/HCC) 03/29/2022 Contact dermatitis 01/21/2013 Resolved Problems Problem Noted Date Diagnosed Date Resolved Date Vaginal discharge 04/25/2022 05/17/2024 Rhabdomyolysis 12/21/2021 05/17/2024 Encounters Date Type Department Care Team Description 02/26/2025 10:20 AM EDT Office Visit [facility] [address] [place] [address] Alissa May MD Moderate persistent asthma with exacerbation (Primary Dx); Cough, unspecified type; Fever, unspecified fever cause; Respiratory crackles 1/2 way up posterior chest wall on left side 02/[facility]/20[facility] [address] [address] Soniya Colon MD 02/26/2025 Travel 01/22/2025 Orders Only [address] [address] Soniya Colon MD Weight gain (Primary Dx) 01/17/2025 Refill [facility] [address] [address] Renetta Finney NP Situational anxiety 01/15/2025 Results Follow-Up [address] [address] Rayo Escobar CNM TSH W/Reflex to FT4, POCT Hemoglobin, CBC, Additional followed-up results: 2 01/14/2025 3:15 PM EDT Office Visit [address] [address] Rayo Escobar CNM Abnormal uterine bleeding 01/14/2025 Orders Only [address] [address] Rayo Escobar CNM 01/14/2025 Travel 01/07/2025 Orders Only [address] [address] Rayo Escobar CNM Von Willebrand disease ([facility]) (Primary Dx) 01/06/[address] [address] Kaitlyn Lozano RN 12/25/2024 6:20 PM EDT Office Visit [facility] [address] [place] [address] Renetta Finney NP Situational anxiety (Primary Dx); Elevated blood pressure reading 12/25/2024 Travel 12/04/2024 Orders Only [address] [address] Rayo Escobar CNM 12/04/2024 Results Follow-Up [address] [address] Rayo Escobar CNM Bacterial Vaginosis Panel, POCT , urine manually resulted, POCT hemoglobin docked device, Additional followed-up results: 2 12/03/2024 1:00 PM EDT Office Visit [address] [address] Rayo Escobar CNM Abnormal uterine bleeding (Primary Dx); Encntr screen for infections w sexl mode of transmiss 12/03/2024 Travel 12/02/[address] [address] Rayo Escobar CNM chart prep 12/02/2024 Travel 11/26/[address] [address] Soniya Colon MD Nurse Triage from Last [...] 24 02/26/2025 10:15 AM EDT Oxygen Saturation 99% 01/14/2025 3:21 PM EDT Inhaled Oxygen Concentration - - Weight 83.9 kg (185 lb) 02/26/2025 10:15 AM EDT Height 157.5 cm (5' 2 ) 02/26/2025 10:15 AM EDT Body Mass Index 33.84 02/26/2025 10:15 AM EDT Plan of Treatment Upcoming Encounters Date Type Department Care Team (Late st Contact Info) Description 07/02/2025 3:30 PM EST Office Visit [facility] [address] [place] [address] [place], Katelyn, OD [address] [place] [address] Health Maintenance Due Date Last Done Comments Dental Oral Exam 1996 Dental Prophylaxis 1996 Dental X-Ray: Bitewings 1996 Dental X-Ray: Full Mouth 1996 Hepatitis C Screening 2014 Pneumococcal Vaccine: Pediatrics (0 to 5 Years) and At-Risk Patients (6 to 49) Years (1 of 2 - PCV) 09/02/2015 COVID-19 Vaccine ( season) 2025 02/11/2022, 07/16/2021, 07/16/2021, Additional history exists Influenza Vaccine (#1) 2025 , 02/11/2022, 03/04/2020, Additional history exists Depression Screening 03/25/2025 03/25/2024, 03/25/20 24 Alcohol/Substance Use Screening 05/17/2025 05/17/2024 Disability Screening 12/03/2025 12/03/2024 SDOH Screening 12/03/2025 12/03/2024 Family Planning (PISQ) 01/14/2026 01/14/2025 Tobacco Screening 02/26/2026 02/26/2025 Pap Smear 09/18/2027 09/17/2024, 02/10/2021 DTaP/Tdap/Td Vaccines [...] Cough, unspecified type Fever, unspecified fever cause T4, FREE Routine 01/14/2025 3:55 PM EDT FERRITIN Routine 01/14/2025 3:55 PM EDT Abnormal uterine bleeding IRON AND TOTAL IRON BINDING CAPACITY Routine 01/14/2025 3:55 PM EDT Abnormal uterine bleeding CBC Routine 01/14/2025 3:55 PM EDT Abnormal uterine bleeding TSH W/REFLEX TO FT4 Routine 01/14/2025 3 :55 PM EDT Abnormal uterine bleeding POCT HEMOGLOBIN Routine 01/14/2025 3:29 PM EDT [...] Recently Relevant to Health Maintenance Results * XR Chest 2 Views (02/26/2025 11:48 AM EDT) Anatomical Region Laterality Modality Chest Radiographic Laney ging 02/26/2025 11:4 8 AM EDT Narrative 02/26/2025 11:46 AM EDT [address] [address] XRay Report Signed Patient: Cande Hernandez MR#: [id number] : 1995 Acct:[id number] Age/Sex: 29 / F ADM Date: 02/26/25 Loc: HO.HHCX Attending Dr: Alissa May MD Ordering Physician: Alissa May MD Date of Service: 02/26/25 Procedure(s): XR chest 2V Accession Number(s): [id number] cc: Alissa May MD Reason for Exam: [...] 02/26/25 1144 DD/ 1148 TD/TT: 02/26/25 1136 Client Analyst: Procedure Note Donotuseinterpreter, Image - 02/26/2025 [place] [address] XRay Report Signed Patient: Cande Hernandez KMR#: [id number] : 1995Acct:[id number] Age/Sex: 29 FADM Date: 02/26/25 Loc: HO.HHCX Attending Dr: Alissa May MD Ordering Physician: Alissa May MD Date of Service: 02/26/25 Procedure(s): XR chest 2V Accession Number(s): [id number] cc: Alissa May MD Reason for Exam: [...] Chai Acuña MD 02/26/2025 11:44 AM EDT RP Dictated By: Chai Acuña MD Signed By: <Electronically signed by Chai Acuña MD in OV> 02/26/25 1144 DD/ 1148 TD/TT: 02/26/25 1136 Client Analyst: Alissa May MD IMG XR PROCEDURES Final Resul t * POCT Rapid Influenza B JOHNSON ID NOW (02/26/2025 10:37 AM EDT) Influenza B Negative Negative, Indeterminate [facility] QC Media Lot # [id number] [facility] Lot# Expiration Date [facility] Swab 02/26/2025 10:3 7 AM EDT Alissa May MD POINT OF CARE TEST ENTER/EDIT ORDERABLES Final Result [facility] [address] [place] [phone] * POCT Rapid Influenza A JOHNSON ID NOW (02/26/2025 10:36 AM EDT) Influenza A Negative Negative, Indeterminate [facility] QC Media Lot # [id number] [facility] Lot# Expiration Date [facility] Swab 02/26/2025 10:3 6 AM EDT Alissa May MD POINT OF CARE TEST ENTER/EDIT ORDERABLES Final Result Performing Organization Address [facility] Co de Phone Number [facility] [address] [place] [address] [phone] * POCT Rapid Covid-19 JOHNSON ID NOW (02/26/2025 10:35 AM EDT) [facility] Coronavirus Antigen PCR Negative Negative, Indeterminate, None Detected, Invalid, Specimen unsatisfactory for evaluation, Weakly Positive, 2+ QC Media Lot # [id number] Lot# Expiration Date [id number] Swab 02/26/2025 10:3 5 AM EDT Alissa May MD POINT OF CARE TEST ENTER/EDIT ORDERABLES Final Result * (ABNORMAL) TSH W/Reflex to FT4 (01/14/2025 3:55 PM EDT) [facility] TSH reflex Free T4 0.15(L) 0.32 - 4.0 uIU/mL [facility] Blood Venous blood specimen / Unknown 01/14/2025 3:55 PM EDT 01/14/2025 6:21 PM EDT [facility] LAB BLOOD ORDERABLES Leigh Ann l Result Performing Organization Address [facility]/ZIP Co de Phone Number [facility] [address] [place] [address] [phone] * (ABNORMAL) Iron And Total Iron Binding Capacity (01/14/2025 3:55 PM EDT) [facility] Iron 35 30 - 160 mcg/dL [facility] Comment:Slight Hemolysis.Int erpret result with caution. Total Iron Binding Capacity 347 228 - 428 mcg/dL [facility] Percent Iron Saturation 10(L) 15 - 50 % [facility] Unsaturated Iron Binding 312 ug/dL [facility] Blood Venous blood specimen / Unknown 01/14/2025 3:55 PM EDT 01/14/2025 6:21 PM EDT Rayo Escobar [facility] LAB BLOOD ORDERABLES Leigh Ann l Result Performing Organization Address City/[facility]/ZIP Co de Phone Number [facility] [address] [place] [phone] * CBC (01/14/2025 3:55 PM EDT) White Blood Count 8.8 4.8 - 10.8 X10*3/uL [facility] Red Blood Count 4.69 4.20 - 5.50 X10*6/uL [facility] Hemoglobin 13.0 12.0 - 16.0 g/dl [facility] Hematocrit 39.6 37.0 - 47.0 % [facility] Mean Corpuscular Volume 84.4 80.0 - 98.0 fL [facility] Mean Corpuscular Hemoglobin 27.7 27.0 - 33.0 pg [facility] Mean Corpuscular HGB Conc 32.8 31.0 - 35.0 g/dl [facility] Red Cell Distribution Width 13.6 11.0 - 16.0 % [facility] Platelet Count 277 160 - 400 X10*3/uL [facility] Mean Platelet Volume 11.5 9.4 - 12.3 fL [facility] NRBC Pct Auto 0.0 0.0 - 0.2 /100WBC [facility] NRBC Abs Auto 0.000 0.0 - 0.012 X10*3/uL [facility] Blood Venous blood specimen / Unknown 01/14/2025 3:55 PM EDT 01/14/2025 6:21 PM EDT Rayo Escobar [facility] LAB BLOOD ORDERABLES Leigh Ann l Result [facility] [address] [place] [phone] * T4, Free (01/14/2025 3:55 PM EDT) Free T4 (Free Thyroxine) 1.13 0.71 - 1.85 ng/dL [facility] 01/14/2025 3:55 PM EDT 01/14/2025 6:21 PM EDT [facility] B[facility] ORDERABLES Leigh Ann l Result Performing Organization Address [facility]/ZIP Co de Phone Number [facility] [address] [place] [phone] * Ferritin (01/14/2025 3:55 PM EDT) Pathologist [facility] Ferritin 64 10 - 122 ng/mL [facility] Blood Venous blood specimen / Unknown 01/14/2025 3:55 PM EDT 01/14/2025 6:21 PM EDT [facility] BLOOD ORDERABLES Leigh Ann l Result Performing Organization Address [facility] Co de Phone Number [facility] [address] [place] [phone] * POCT Hemoglobin (01/14/2025 3:29 PM EDT) Only the most recent of2 resultswithin the time period is included. Hemoglobin 12.7 12.0 - 15.0 QC Media Lot # [id number] Lot# Expiration Date [id number] Blood 01/14/2025 3:29 PM EDT [facility] POINT OF CARE TEST ENTER/ EDIT ORDERABLES Final Result * US Pelvis Transvaginal (12/12/2024 3:40 PM EDT) Anatomical Region Laterality Modality Pelvis Ultrasound 12/12/2024 3:40 PM EDT Narrative 12/12/2024 4:33 PM EDT [address] [address] Ultrasound Report Signed Patient: Cande Hernandez MR#: [id number] : 1995 Acct:[id number] Age/Sex: 29 / F ADM Date: 12/12/24 Loc: HO.US Attending Dr: Rayo Escobar CNM Ordering Physician: RAYO ESCOBAR CNM Date of Service: 12/12/24 Procedure(s): US pelvic and transvaginal Accession Number(s): [id number] cc: Soniya Colon; RAYO ESCOBAR CNM EXAMINATION: [...] 12/12/24 1630 DD/ 1540 TD/TT: 12/12/24 1556 Client Analyst: Procedure Note Donotuseinterpreter, Image - 12/12/[address] [address] Ultrasound Report Signed Patient: Cande Hernandez KMR#: [id number] : 1995Acct:[id number] Age/Sex: 29 / FADM Date: 12/12/24 Loc: HO.US Attending Dr: Rayo Escobar CNM Ordering Physician: RAYO ESCOBAR CNM Date of Service: 12/12/24 Procedure(s): US pelvic and transvaginal Accession Number(s): [id number] cc: Soniya Colon; RAYO ESCOBAR CNM EXAMINATION: [...] 12/12/24 1630 DD/ 1540 TD/TT: 12/12/24 1556 Client Analyst: Rayo Escobar CNM IMG US PROCEDURES Edited Result - Final * (ABNORMAL) Bacterial Vaginosis Panel (12/03/2024 1:40 PM EDT) TRICHOMONAS VAGINALIS DETECTION BY PCR NOT DETECTED Not Detect [facility] BACTERIAL VAGINOSIS DETECTION BY PCR POSITIVE(A) Negative [facility] Comment:The BV organism targ ets [...] DETECTION BY PCR NOT DETECTED Not Detect [facility] Jessica glab krusei PCR NOT DETECTED Not Detect [facility] Swab Vaginal structure / Unknown 12/03/2024 1:40 PM EDT 12/03/2024 5:35 PM EDT Rayo Escobar CNM LAB MICROBIOLOGY - GENERA L ORDERABLES Final Result [facility] [address] [place] [phone] * Chlamydia/N. Gonorrhoeae RNA, TMA, Vagina (12/03/2024 1:40 PM EDT) CT PCR NOT DETECTED Not Detect. [facility] Comment:A not detected test result [...] psychologicalconsequences. NG PCR NOT DETECTED Not Detect. [facility] Comment:A not detected test result [...] PM EDT 12/03/2024 5:35 PM EDT [facility] LAB MICROBIOLOGY - GENERA L ORDERABLES Final Result [facility] [address] [place] [phone] * POCT , urine manually resulted (12/03/2024 1:30 PM EDT) Preg Test, Ur Negative Negative, Indeterminate, None Detected, Invalid, Specimen unsatisfactory for evaluation, Weakly Positive, 2+ QC Media Lot # [id number] Lot# Expiration Date [id number] Urine 12/03/2024 1:30 PM EDT Rayo [facility] POINT OF CARE TEST ENTER/ EDIT ORDERABLES Final Result * Pap Smear (09/17/2024 12:00 AM EDT) Swab Cervical swab / Unknown 09/17/2024 09/18/2024 10:15 AM EDT [facility] - 09/20/2024 10:37 AM EDT ----- ------- Name: Cande Hernandez Age/Sex: 29/F : 1995 Unit#: [id number] Attend Dr: Soniya Colon Re09/17/24 Status: [facility]ch: ----- ------- SPEC : [id number] RECD: 09/18/24-1015 STATUS: JOSE RAUL BURCIAGA NUM: [id number] [place]: 09/17/24-[address]: Soniya Colon ENTERED: 09/18/24-1040 SP TYPE: Pap Smr [facility] DR: ORDERED: Pap Smear Interpretation Satisfactory for evaluation. Negative for intraepithelial lesion or malignancy. Mild inflammation. Clinical Information LMP: Unknown date Previous PAP test: Unknown date, WNL Material Received ThinPrep-Cervical ----- ------- Signed (signature on file) LEYDI Kyle ([facility]) 09/20/24 1037 ----- ------- END OF REPORT us Soniya Colon MD LAB CYTOLOGY ORDERABLES Final Result [facility] [address] [place] [address] [phone] from Last 3 Months or Most Recently Relevant to Health Maintenance Insurance [facility] PARTIAL (MEDICAID) Care Teams Computerized Table Cutter Relationship Specialty Start Date End Date Soniya Colon MD [address] [place] [phone] PCP - General Family Medicine 01/19/21
--- OUTSIDE RECORDS SUMMARY | 2025-02-26 13:02 | XMS_ITS | Clinical Summary ---
Author Organization [employer] [facility] Address [address] [employer] [address] [address] Phone Care Team Providers Care Application Processor Name Role Phone Soniya Colon MD Primary Care Provider + Allergies Active Allergy Reactions Criticality Noted Date Comments Sulfamethoxazole-Trimetho prim Hives 04/06/2023 Other Reaction(s): Terbinafine Terbinafine Swelling 04/06/2023 SWOLLEN LIPS [place] Anaphylaxis High 11/10/2023 Medications SUMAtriptan (IMITREX) 50 [...] Comments DEPRESSION SCREENING 2008 PAP SMEAR 2017 INFLUENZA VACCINE (#1) 2024 2, 03/04/2020, 05/16/2019, Additional history exists COVID-19 VACCINE ( season) 2025 02/11/2022, 07/16/2021, 10/17/2020, Additional history exists Adult [...] AM EDT) HCV NON-REACTIV E [facility] Blood 11/06/2023 10:3 4 AM EDT 11/06/2023 10:42 AM EDT Miguel Aguayo MD LAB BLOOD ORDERABLES Final Re sult [address] [phone] from Last 3 Months or Most Recently Relevant to Health Maintenance Insurance [facility] [employer] [facility] Advance Directives For more information, please contact: [phone] (9AM - 5PM [facility], Monday-Monday) Documents on File Type Date Recorded Patient Communications Professional Expl anation Healthcare Proxy 11/17/2023 4:31 PM Care Teams Application Processor Relationship Specialty Start Date End Date Soniya Colon MD PCP - General Family Medicine 03/27/23 Additional Source Comments The information contained in this document represents components of the legal health record. It is not the complete legal health record.[facility]
--- OUTSIDE RECORDS SUMMARY | 2025-02-26 13:02 | XMS_ITS | Encounter Summary ---
Author Organization [employer] Address [address] [place] [address] [place] [address] Care Team Providers Care Chef Under Name Role Phone Soniya Colon MD Primary Care Provider [phone] Encounter Details Date Type Department Care Team (Late Contact Info) Description 04/25/2022 Abstract [facility] [address] [place] [address] Soniya Colon MD [address] [place] [address] Social History Tobacco Use Types Packs/Day Years [...] Description 07/02/2025 3:30 PM EST Office Visit [facility] [address] [place] [address] [place], Katelyn, OD [address] [place] [address] documented as of this encounter Visit Diagnoses Not on filedocumented in this encounter Care Teams Chef Under Relationship Specialty Start Date End Date Soniya Colon MD [address] [place] [address] PCP - General Family Medicine 01/19/21 documented as of this encounter
--- OUTSIDE RECORDS SUMMARY | 2025-02-26 13:02 | XMS_ITS | Encounter Summary ---
Author Organization [employer] Address [address] [place] [address] 7 [place] [address] Care Team Providers Care Waterproof Bag Sewer Name Role Phone Soniya Colon MD Primary Care Provider [phone] Reason for Visit * Reason Onset Date Comments triage 10/10/2022 Encounter Details Date Type Department Care Team ([facility] st Contact Info) Description 10/10/2022 Telephone [facility] [address] [place] [address] Soniya Colon MD [address] [place], [place] [phone] triage Social History Tobacco Use Types Packs/Day [...] few days. Pt is on vacation in [place] and will return 10/11 afternoon. Pt reports taking apap/motrin alternating every 6 hours and using muscle relaxer but, not effecting pain. Pt reports radiation of pain to left leg. Pt is offered apt 10/17 but,requests to be seen sooner. Pt will come to [facility] upon arrival home 10/11. Home care reviewed [...] Description 07/02/2025 3:30 PM EST Office Visit [facility] [address] [place] [address] Katelyn Borjas, OD [address] [place] [address] documented as of this encounter Visit Diagnoses Not on filedocumented in this encounter Care Teams Waterproof Bag Sewer Relationship Specialty Start Date End Date Soniya Colon MD [address] [place] [address] PCP - General Family Medicine 01/19/21 documented as of this encounter
--- OUTSIDE RECORDS SUMMARY | 2025-02-26 13:03 | XMS_ITS | Encounter Summary ---
Author Organization [employer] Address [address] [place] [address] 7t [place] [address] Care Team Providers Care Hydroelectric Plant Operator Name Role Phone Soniya Colon MD Primary Care Provider [phone] Encounter Details Date Type Department Care Team ([facility] st Contact Info) Description 01/15/2025 Results Follow-Up [facility] MEDICINE [address] [place] [address] Nicolette Landa CN [address] [place] [address] TSH W/Reflex to FT4, POCT Hemoglobin, CBC, Additional followed-up results: 2 Social History Tobacco Use Types Packs/Day Years [...] as of this encounter Miscellaneous Notes * Result Encounter Note - Nicolette Landa CNM - 01/15/2025 8:11 AM EDT Agusto Castellon has a low TSH, normal FT4. Symptomatic with frequent bleeding (although known von Willebrands) and vasomotor symptoms. She has heme referral pending. Would you like repeat labs or other followup for thyroid? Thanks! documented in this encounter Plan of Treatment Upcoming Encounters Date Type Department Care Team (Late st Contact Info) Description 07/02/2025 3:30 PM EST Office Visit [facility] OPTOMETRY [address] [place] [address] Katelyn Borjas, OD [address] [place] [address] documented as of this encounter Visit Diagnoses Not on filedocumented in this encounter Additional Health Concerns Assessment Noted Time PHQ-9 Depression Total Score: 4 03/25/20 24 2:12 PM EDT documented as of this encounter Care Teams Hydroelectric Plant Operator Relationship Specialty Start Date End Date Soniya Colon MD [address] [place] [address] PCP - General Family Medicine 01/19/21 documented as of this encounter
--- OUTSIDE RECORDS SUMMARY | 2025-02-26 13:03 | XMS_ITS | Encounter Summary ---
Author Organization [employer] Address [address] [place] [address] 7t [place] [address] Care Team Providers Care Biscuit Factory Worker Name Role Phone Soniya Colon MD Primary Care Provider [phone] Encounter Details Date Type Department Care Team ([facility] st Contact Info) Description 01/22/2025 Orders Only [facility] MEDICINE [address] [place] [address] Soniya Colon MD [address] [place] [address] Weight gain (Primary Dx) Social History Tobacco Use Types [...] the past 12 months, has t he [employer], gas, oil or water company threatened to [...] Description 07/02/2025 3:30 PM EST Office Visit [facility] OPTOMETRY [address] [place] [address] Ind[place], Katelyn, OD [address] [place] [address] Scheduled Orders Name Type Priority Associated Diagnoses Orde r Schedule TSH W/Reflex to FT4 Lab Routine Weight gain Expected: 01/22/2025 (Approximate), Expires: 01/22/2026 documented as of this encounter Visit Diagnoses Diagnosis Weight gain- Primary Other symptoms concerning nutrition, metabolism, and development documented in this encounter Additional Health Concerns Assessment Noted Time PHQ-9 Depression Total Score: 4 03/25/20 24 2:12 PM EDT documented as of this encounter Care Teams Biscuit Factory Worker Relationship Specialty Start Date End Date Soniya Colon MD [address] [place] [address] PCP - General Family Medicine 01/19/21 documented as of this encounter
--- OUTSIDE RECORDS SUMMARY | 2025-02-26 13:03 | XMS_ITS | Clinical Summary ---
Author Organization [employer] [facility] ity Address [address] [place] [address] Care Team Providers Care Ancillary Services Manager Therapy Name Role Phone Unavailable Primary Care Provider [...] Cervical Cancer Screening: P ap Smear 2017 HPV Vaccines (1 - 3-dose SCD M series) 09/02/2023 Depression Screening 05/29/2024 COVID-19 Vaccine ( - 2023-2 5 season) 2025 Influenza Vaccine (#1) 2025 RSV Immunization Adult Patie nts (1 - 1-dose 75+ series) 09/02/2071 HIB Vaccines Aged Out No longer eligi [...]
--- OUTSIDE RECORDS SUMMARY | 2025-02-26 13:03 | XMS_ITS | Encounter Summary ---
Author Organization [employer] Address [address] [place] [address] 7 [place] [address] Care Team Providers Care Conference Planner Name Role Phone Soniya Colon MD Primary Care Provider [phone] Encounter Details Date Type Department Care Team (Latest Contact Info) Description 02/26/2025 Travel Social History Tobacco Use Types Packs/Day [...] the past 12 months, has t he [employer], gas, oil or water company threatened to [...] Description 07/02/2025 3:30 PM EST Office Visit [facility] OPTOMETRY [address] [place] [address] Katelyn Borjas, OD 230 [place] [address] documented as of this encounter Visit Diagnoses Not on filedocumented in this encounter Additional Health Concerns Assessment Noted Time PHQ-9 Depression Total Score: 4 03/25/20 2:12 PM EDT documented as of this encounter Care Teams Conference Planner Relationship Specialty Start Date End Date Soniya Colon MD [address] [place] [address] PCP - General Family Medicine 01/19/21 documented as of this encounter
--- OUTSIDE RECORDS SUMMARY | 2025-02-26 13:03 | XMS_ITS | Encounter Summary ---
Author Organization [employer] Address [address] [place] [address] Care Team Providers Care Iron Carrier Name Role Phone Soniya Colon MD Primary Care Provider [phone] Encounter Details Date Type Department Care Team (Late Contact Info) Description 01/10/2023 Orders Only [facility] MEDICINE [address] [place] [address] Soniya Colon MD [address] [place], [place] [phone] Migraine without aura and with status migrainosus, [...] Description 07/02/2025 3:30 PM EST Office Visit [facility] OPTOMETRY [address] [place], [place] [phone] Indio, Katelyn, OD [address] [place] [address] documented as of this encounter Visit Diagnoses Diagnosis Migraine without aura and with status migrainosus, not intractable- Primary documented in this encounter Care Teams Iron Carrier Relationship Specialty Start Date End Date Soniya Colon MD [address] [place] [address] PCP - General Family Medicine 01/19/21 documented as of this encounter
--- OUTSIDE RECORDS SUMMARY | 2025-02-26 13:03 | XMS_ITS | Encounter Summary ---
Author Organization [employer] Address [address] [facility] 7t [place] [address] Care Team Providers Care Production Zone Leader Name Role Phone Soniya Colon MD Primary Care Provider [phone] Encounter Details Date Type Department Care Team ([facility] st Contact Info) Description 02/26/2025 Telephone [facility] WALK[facility]IN [facility]ENTER [address] [place], [place] [phone] Soniya Colon MD [address] [place] [address] Social History Tobacco Use Types Packs/Day Years [...] encounter Miscellaneous Notes * Telephone Encounter - Mel Martinez RN - 02/26/2025 12:15 PM EDT TC placed to [facility] [phone] regarding an patient expect. RN informed [facility] triage (Nicole)with patient diagnosis of pneumonia and to expect patient by private car. Nicole verbalized understanding. Fax sent to [facility] [phone]. Result was ok. Sent to [facility] for scan. documented in this encounter Plan of Treatment Upcoming Encounters Date Type Department Care Team (Late st Contact Info) Description 07/02/2025 3:30 PM EST Office Visit [facility] OPTOMETRY [address] [place] [address] Katelyn Borjas, OD 230 [place] [address] documented as of this encounter Visit Diagnoses Not on filedocumented in this encounter Additional Health Concerns Assessment Noted Time PHQ-9 Depression Total Score: 4 03/25/20 24 2:12 PM EDT documented as of this encounter Care Teams Production Zone Leader Relationship Specialty Start Date End Date Soniya Colon MD [address] [place] [address] PCP - General Family Medicine 01/19/21 documented as of this encounter
--- OUTSIDE RECORDS SUMMARY | 2025-02-26 13:03 | XMS_ITS | Encounter Summary ---
Author Organization [employer] Address [address] [place] [address] [place] [address] Care Team Providers Care Railroad Car Loader Name Role Phone Soniya Colon MD Primary Care Provider [phone] Reason for Referral * Consultation (Routine) - Closed Specialty Diagnoses / Procedures Referred By Izaiah mcleod Referred To Contact Urology Diagnoses Kidney stone Soniya Colon MD [address] [place] [address] Phone: tel: fax: [facility] Urology [address] [place] [address] [place] [address] Phone: tel: fax: Referral ID Status Reason Start Date Expiration Date V isits Requested Visits Authorized [id number] Closed Specialty Services Required 09/09/2024 09/09/2025 1 1 Encounter Details Date Type Department Care Team (Late st Contact Info) Description 09/09/2024 Orders Only [facility] MEDICINE [address] [place] [address] Soniya Colon MD [address] [place], [place] [phone] Kidney stone (Primary Dx) Social History Tobacco [...] Description 07/02/2025 3:30 PM EST Office Visit [facility] OPTOMETRY [address] [place] [address] Indio, Katelyn, OD [address] [place] [address] documented as of this encounter Procedures Procedure [...] documented as of this encounter Care Teams Railroad Car Loader Relationship Specialty Start Date End Date Soniya Colon MD 230 [place] [address] PCP - General Family Medicine 01/19/21 documented as of this encounter
--- OUTSIDE RECORDS SUMMARY | 2025-02-26 13:03 | XMS_ITS | Encounter Summary ---
Author Organization [employer] Address [address] [place] [address] 7 [place] [address] Care Team Providers Care Radio Electronics Technician Name Role Phone Soniya Colon MD Primary Care Provider [phone] Reason for Visit * Reason Comments Med Refill Encounter Details Date Type Department Care Team (Late Contact Info) Description 07/06/2022 Refill [facility] CHC MED & PEDS [address] [place], [place] [phone] Sohail Rouse MD [address] [place] [address] Social History Tobacco Use Types Packs/Day Years [...] 3:30 PM EST Office Visit [facility] OPTOMETRY [address] [place] [address] Indio, Katelyn, OD [address] [place] [address] documented as of this encounter Visit Diagnoses Not on filedocumented in this encounter Care Teams Radio Electronics Technician Relationship Specialty Start Date End Date Soniya Colon MD [address] [place] [address] PCP - General Family Medicine 01/19/21 documented as of this encounter
--- OUTSIDE RECORDS SUMMARY | 2025-02-26 13:03 | XMS_ITS | Encounter Summary ---
Author Organization [employer] Address [address] [place] [address] 7 [place] [address] Care Team Providers Care Borough Coordinator Name Role Phone Soniya Colon MD Primary Care Provider [phone] Encounter Details Date Type Department Care Team ([facility] st Contact Info) Description 10/16/2023 Orders Only [facility] MEDICINE [address] [place] [address] Soniya Colon MD [address] [place] [address] Social History Tobacco Use Types Packs/Day Years [...] Description 07/02/2025 3:30 PM EST Office Visit [facility] OPTOMETRY [address] [place], [place] [phone] Indio, Katelyn, OD [address] [place] [address] documented as of this encounter Visit Diagnoses Not on filedocumented in this encounter Additional Health Concerns Assessment Noted Time PHQ-9 Depression Total Score: 13 023 3:47 PM EST documented as of this encounter Care Teams Borough Coordinator Relationship Specialty Start Date End Date Soniya Colon MD [address] [place] [address] PCP - General Family Medicine 01/19/21 documented as of this encounter
--- OUTSIDE RECORDS SUMMARY | 2025-02-26 13:03 | XMS_ITS | Encounter Summary ---
Author Organization [employer] [facility] Address [facility] [employer] [facility] [address] [place] [address] Phone Care Team Providers Care Hook Loader Name Role Phone Soniya Colon MD Primary Care Provider + Encounter Details Date Type Department Care Team (Late st Contact Info) Description 11/16/2023 Procedure Pass OR Admitting Dept - Virtual Department [address] [place] [address] Social History Tobacco Use Types Packs/Day Years Used Date Smoking Tobacco: Never Passive Smoke Exposure: Never Smokeless Tobacco: Never Alcohol Use Standard Drinks/Week Comments Yes 0 [...] on file Sexual Orientation Not on file documented as of this encounter Plan of Treatment Not on file documented as of this encounter Visit Diagnoses Not on filedocumented in this encounter Care Teams Hook Loader Relationship Specialty Start Date End Date Soniya Colon MD PCP - General Family Medicine 03/27/23 documented as of this encounter Additional Source Comments The information contained in this document represents components of the legal health record. It is not the complete legal health record.[facility]
--- OUTSIDE RECORDS SUMMARY | 2025-02-26 13:03 | XMS_ITS | Encounter Summary ---
Author Organization [employer] [facility] Address [address] [facility] [address] [place] [address] Phone Care Team Providers Care Rigger Up Name Role Phone Soniya Colon MD Primary Care Provider + Encounter Details Date Type Department Care Team ([facility] st Contact Info) Description 03/27/2023 Transcribe Orders [facility] [address] [place] [address] Soniya Colon MD [address] [place] [address] Social History Tobacco Use Types Packs/Day Years Used Date Smoking Tobacco: Never Assessed Education Answer Date Recorded Are you interested in more education? Not on vi e 03/27/2023 Are you concerned about learning? Not on file 03/27/2023 No 03/27/2023 No 03/27/2023 Digital Access Answer Date Recorded No 03/27/2023 No 03/27/2023 Reliable internet access at home? Not on file 03/27/2023 Device with a working camera? Not on file Comments Unknown Sex and Gender Information Value Date Recorded Sex Assigned at Not on file Legal Sex Female 12:59 PM EDT Gender Identity Not on file Sexual Orientation Not on file documented as of this encounter Plan of Treatment Not on file documented as of this encounter Visit Diagnoses Not on filedocumented in this encounter Care Teams Rigger Up Relationship Specialty Start Date End Date Soniya Colon MD PCP - General Family Medicine 03/27/23 documented as of this encounter Additional Source Comments The information contained in this document represents components of the legal health record. It is not the complete legal health record.[facility]
== END 2025-02-26 11:28 | disposition home or self-care (01) ==
LOC: HO.HHCX 11:27
PROVIDERS: Visit Provider Pediatrics
DX: J45.41 Moderate persistent asthma with (acute) exacerbation (principal); R05.9 Cough, unspecified; R50.9 Fever, unspecified; R09.89 Other specified symptoms and signs involving the circulatory and respiratory systems
CPT/HCPCS: 71046

== ENCOUNTER → 2025-02-26 11:27 | Outpatient (BNV) | payer BC, SELFPAY | PROVIDERS: Visit Provider Radiology Diagnostic Radiology | DX: J18.8 Other pneumonia, unspecified organism (principal); J91.8 Pleural effusion in other conditions classified elsewhere; R05.9 Cough, unspecified | CPT/HCPCS: 71046; 71275 ==

== ENCOUNTER 2025-02-26 12:23 | Inpatient (IN) | payer BC, SELFPAY ==
--- NOTE | ~2025-02-26 | XR_ITS ---
CLINICAL HISTORY: worsening O2 sats Chest X-ray, 1 View COMPARISON: CR/SR - XR CHEST 2 VIEWS - 02/26/25 11:48 EDT FINDINGS: Increased diffuse patchy bilateral pulmonary consolidations. Possible left pleural effusion. No pneumothorax. No cardiomegaly. No acute fracture. IMPRESSION: Increased diffuse bilateral pulmonary consolidations, which could be due to multilobar pneumonia. Possible left pleural effusion. This document has been electronically signed by: Chi Martinez MD on 02/28/2025 03:22:40
--- NOTE | ~2025-02-26 | CT_ITS ---
EXAMINATION: CT ANGIOGRAM CHEST CLINICAL INFORMATION: hypoxia and multifocal pneumonia COMPARISON: Same-day chest x-ray TECHNIQUE: Multiple axial images were obtained through the chest after the administration of 65 mL of Omnipaque 350 intravenous contrast. Extensive vascular post-processing including two-dimensional and three-dimensional reformatted images were created and reviewed on an independent workstation. This CT examination was performed using dose optimization techniques as appropriate, variously including the following: *Automated exposure control *Adjustment of mA and/or kV according to patient size (this includes techniques or standardized protocols for targeted exams where dose is matched to indication/reason for exam; i.e. extremities or head) *Use of iterative reconstruction technique FINDINGS: QUALITY OF STUDY/CONTRAST BOLUS: Adequate PULMONARY ARTERIES: No filling defects are identified in the pulmonary arteries. THORACIC AORTA: Unremarkable LUNGS AND PLEURA: There is a space opacity with air bronchograms in the left upper lobe tracking along the major fissure and into the lingula. There is patchy groundglass and nodular densities in the left upper lobe. One of the nodular densities measures 8 mm in located in the anterior left upper lobe. There is airspace opacity in the medial superior portion of the left lower lobe as well as multifocal nodular densities with multifocal groundglass densities. Airspace opacities do not enhance which is most consistent with pneumonia. There is linear density tracking along the medial aspect of the major fissure on the right, likely atelectasis and/or scarring. There are septal lines in the anterior lower portion of the right upper lobe. Right lung is clear otherwise. There is trace pleural effusion on the left. MEDIASTINUM: There is a small prevascular node. CORONARY ARTERY CALCIFICATION: Nonvisualized CHEST WALL/AXILLA: No axillary or internal mammary lymphadenopathy. UPPER ABDOMEN: Diffuse low attenuation is noted throughout the liver. The gallbladder is absent and there is a clip in the gallbladder fossa. BONES: Unremarkable CT/CT angio chest PE protocol IMPRESSION: No evidence of pulmonary embolus. Multifocal pneumonia in the left lung, most pronounced in the left upper lobe with trace parapneumonic effusion. There are multifocal nodular densities that are probably related to pneumonia, however underlying pulmonary nodules are not ruled out. Given the patient's age, malignancy is unlikely. If there are underlying risk factors, consider follow-up CT chest without contrast after resolution of symptoms. Hepatic steatosis. Fleischner guidelines were followed. Electronically signed by: David Downey MD 02/26/2025 05:02 PM EDT RP
--- NOTE | ~2025-02-26 | XR_ITS ---
EXAMINATION: XR CHEST 2 VIEWS HISTORY: pneumonia COMPARISON: Comparison is made with the prior examination dated 02/28/2025. FINDINGS: PA and lateral views of the chest are submitted. There are airspace opacities at both lung bases, consistent with pneumonia. There are probable tiny bilateral pleural effusions. There is no pneumothorax or pulmonary vascular congestion. The heart is normal in size. The bones are intact. XR/XR chest 2V IMPRESSION: Bibasilar pneumonia with probable tiny bilateral pleural effusions. Electronically signed by: Chai Acuña MD 03/03/2025 09:07 AM EDT
[2025-02-26 12:34] VITALS: BP 170/79; PULSE 130; RESP 20; TEMP 36.9; O2SAT 95; BMI 33.2
--- NOTE | 2025-02-26 12:42 | ED.URI ---
HPI - URI/Sore Throat General Chief Complaint: Upper Respiratory Symptoms Stated Complaint: sent by [facility] for pneumonia in both lungs Time Seen by Provider: 02/26/25 16:05 Source: patient, RN notes reviewed and old records reviewed Mode of arrival: ambulatory Limitations: no limitations History of Present Illness ED Provider: Dre AYOUB Narrative: 29-year-old female with a past medical history significant for asthma presents for evaluation of shortness of breath pain She went to [facility] urgent care this afternoon as she felt as if she had an asthma exacerbation. She reports she started with congestion, cough and shortness of breath on Monday, 5 days ago She has not had any improvement with her inhalers. She had a chest x-ray that showed multifocal pneumonia and was sent to the emergency department. At the time of my evaluation the patient is noted have a fever of 100.5, she was tachycardic to about 125. Her oxygen saturation is 97% and her respiratory rate is about 28-30. Related Data Home Medications ?Medication ?Instructions ?Recorded ?Confirmed multivitamin 1 tab PO DAILY 02/26/25 02/26/25 Allergies Allergy/AdvReac Type Severity Reaction Status Date / Time terbinafine (TERBINAFINE) Allergy Severe ANAPHYLAXIS Verified 02/26/25 12:34 sulfamethoxazole (From Allergy Angioedema Verified 02/26/25 12:34 Bactrim) trimethoprim (From Bactrim) Allergy Angioedema Verified 02/26/25 12:34 Review of Systems Constitutional: Constitutional: Reports body ache(s), Reports chills, Reports fever(s), Reports headache(s) and Reports malaise Eyes: Eyes: Denies blurry vision ENT: Denies vertigo, Denies dizziness and Reports headache(s) Cardiovascular: Cardiovascular: Denies chest pain, Reports dyspnea and Reports dyspnea on exertion Respiratory: Respiratory: Reports chest congestion, Reports cough, Reports dyspnea, Reports dyspnea on exertion and Reports wheezing Gastrointestinal: Gastrointestinal: Denies abdominal pain, Denies nausea and Denies vomiting Musculoskeletal: Musculoskeletal: Reports back pain Integumentary/Breasts: Skin/Breast: Denies rash Neurologic: Denies vertigo, Denies dizziness and Reports headache(s) Allergic/Immunologic: Allergic/Immunologic: Reports wheezing [facility] Past Medical History Medical History (Updated 02/26/25 @ 19:30 by MAXINE Landers) Encounter for screening examination for sexually transmitted disease Abnormal uterine bleeding Acute UTI (urinary tract infection) Low back pain, unspecified Advised about oral contraception Migraine without aura and with status migrainosus, not intractable Obesity, class 1 Gain of weight Right lower quadrant pain Panic attack Seasonal allergies Anxiety Von Willebrand disease, unspecified Contact dermatitis Kidney stones Surgical History History of esophagogastroduodenoscopy (EGD) Hx of cholecystectomy Family History Family History Mother Diabetes HTN (hypertension) Paternal Grandfather HTN (hypertension) Paternal Grandmother HTN (hypertension) Maternal Grandfather HTN (hypertension) Maternal Grandfather HTN (hypertension) Diabetes Maternal Grandmother HTN (hypertension) Social History Social History (Updated 01/29/25 @ 16:03 by Deirdre Bernabe) Household Members: Family Housing: House Alcohol intake: never Patient Tobacco Use Status: Never used Tobacco Smoked in Last 30 Days: No Use of substances other than those prescribed or required for medical reasons: No Advance Directives: No Advance Directives Information Provided: Yes Do you have a plan to hurt others: No Plan Patient : No service: No Current occupational status: employed and other 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 Physical Exam Vital Signs: Vital Signs: Last Vital Signs Temp 98.2 F 02/26/25 19:09 Pulse 101 H 02/26/25 19:09 Resp 23 H 02/26/25 19:09 BP 124/78 02/26/25 19:09 Pulse Ox 97 02/26/25 19:09 O2 Del Method Room Air 02/26/25 19:09 BMI result Body Mass Index 33.2 Const: General: healthy appearing, comfortable, no acute distress, alert and awake Nutritional Appearance: well nourished Orientation/consciousness: patient oriented x3 HEENT: Head: Yes normocephalic and Yes atraumatic Eyes: Eyelids: Yes eyelids normal Conjunctivae: conjunctivae normal Sclerae: sclerae normal Corneas: corneas normal Pupils: Equal, round and reactive pupils present EOM: EOMs intact bilaterally Neck: Neck: Yes full ROM Resp: Effort & Inspection: normal respiratory effort and able to speak in complete sentences Auscultation: not clear to auscultation bilaterally and rhonchi (Left middle to upper lobe rhonchi) Cardio: Rate: tachycardic Rhythm: regular rhythm GI: Inspection: No distended Palpation (GI): Soft to palpation, not firm, nontender, no guarding and not rigid Skin: General skin exam: elasticity normal Neuro: General: patient oriented x3 Cranial nerves: Yes Equal, round and reactive pupils present and Yes Bilaterally intact EOM present Cognition (Neuro): normal cognition Course Course Course Narrative: This is an RME: Additional HPI, ROS, PE not included below will be deferred to primary provider. RME assessment and note performed by: Magda Birmingham PA-C This is a 29-year-old female, with history of asthma, who presents emergency department with concerns of shortness for breath, headache and back pain. Patient went to [facility] thinking that she was having an asthma exacerbation, they performed a chest x-ray, and was diagnosed with left upper and lower pneumonia, she is given a DuoNeb and 50 mg of prednisone, she still continues to feel short of breath. Patient tachycardic at 130bpm, likely due to recent updraft. Crackles in upper lobes BL. Advised charge nurse to bring patient back. Plan: Labs, EKG Received critical troponin, repeat ordered, EKG performed normal sinus rhythm. Discussed with the attending physician, who recommended D-dimer. Also advised charge nurse to bring patient back. Reevaluation(s) Reevaluation #1: Patient's lactic acid is increase to 4 which is likely multifactorial due to sepsis but also partially related to albuterol use. She was treated for severe sepsis with over 30 cc/kilogram of IV fluids. Sepsis focused exam performed Time: 17:23 Medications Administered Generic Name Dose Route Start Last Admin Trade Name Freq PRN Reason Stop Dose Admin Lactated Ringer's 1,000 mls @ 100 mls/hr 02/26/25 19:30 02/26/25 19:51 Lr IVCONT 100 mls/hr .Q10H ADRIAN Administration Discontinued Medications Generic Name Dose Route Start Last Admin Trade Name Freq PRN Reason Stop Dose Admin Acetaminophen 975 mg 02/26/25 16:11 02/26/25 16:48 Acetaminophen 325 Mg Tablet PO 02/26/25 16:12 975 mg ONCE ONE Administration Ceftriaxone Sodium 1 gm 02/26/25 16:11 02/26/25 16:48 Ceftriaxone Sodium 1 Gm Vial IVPUSH 02/26/25 16:12 1 gm ONCE ONE Administration Azithromycin 500 mg/ Sodium 250 mls @ 125 mls/hr 02/26/25 16:11 02/26/25 18:48 Chloride IV 02/26/25 18:10 Infused ONCE ONE Infusion Sodium Chloride 1,000 mls @ 999 mls/hr 02/26/25 16:15 02/26/25 18:49 Ns IV 02/26/25 18:15 Infused .Q1H1M ADRIAN Infusion Lactated Ringer's 1,000 mls @ 999 mls/hr 02/26/25 16:56 02/26/25 18:48 Lr IV 02/26/25 17:56 999 mls/hr .Q1H1M STA Administration Iohexol 100 ml 02/26/25 16:46 02/26/25 16:46 Iohexol 350 Mg/Ml 100 Ml Infus..Btl IV 02/26/25 16:47 65 ml ONCE ONE Administration Ketorolac Tromethamine 30 mg 02/26/25 17:26 02/26/25 17:38 Ketorolac Tromethamine 30 Mg/Ml Vial IVPUSH 02/26/25 17:27 30 mg ONCE ONE Administration Medical Decision Making Medical Decision Making [facility] Narrative: 29-year-old female presents for evaluation of cough and shortness of breath. She had an x-ray that shows multifocal pneumonia. She is febrile, tachycardic, tachypneic, [place] [id number]. She meets sepsis criteria in his sepsis alert was called. She was given broad-spectrum antibiotics with ceftriaxone azithromycin, 3 L of IV fluids. She did receive prednisone outpatient prior to coming in the hospital. No evidence of PE. She was given Tylenol for her fever. She will be admitted for further evaluation management Differential Diagnosis Differential Diagnoses: The differential diagnosis associated with the presentation includes Multifocal pneumonia Community-acquired pneumonia Sepsis Asthma exacerbation Bronchitis Admission/Observation Consideration of admission/observation: Escalation of care including admission/observation considered Lab Data [facility] Lab Attestation statement: I reviewed the [place] [address] with a left shift. No anemia. Normal platelet count. No significant electrolyte abnormalities warranting dimension. 02/26/25 13:15 02/26/25 13:15 Labs: Lab Results 02/26/25 02/26/25 02/26/25 Range/Units 13:15 14:07 16:06 WBC 11.0 H (4.8-10.8) X10*3/uL RBC 4.75 (4.20-5.50) X10*6/uL Hgb 13.3 (12.0-16.0) g/dl Hct 38.2 (37.0-47.0) % MCV 80.4 (80.0-98.0) fL MCH 28.0 (27.0-33.0) pg MCHC 34.8 (31.0-35.0) g/dl RDW 13.2 (11.0-16.0) % Plt Count 234 (160-400) X10*3/uL MPV 9.3 L (9.4-12.3) fL Immature Gran % (Auto) 0.5 H (0.0-0.4) % Neut % (Auto) 85.7 H (45-73) % Lymph % (Auto) 6.1 L (20-40) % [place] % (Auto) 7.4 (2-11) % Eos % (Auto) 0.1 (0-4) % Baso % (Auto) 0.2 (0-2) % Lymph # (Auto) 0.7 L (1.2-4.9) X10*3/uL [place] # (Auto) 0.8 (0.1-1.2) X10*3/uL Eos # (Auto) 0.0 (0.0-0.4) X10*3/uL Baso # (Auto) 0.0 (0.0-0.2) X10*3/uL Abs Immat Gran (auto) 0.05 H (0.00-0.03) X10*3/uL Absolute Neuts (auto) 9.4 H (2.0-8.3) x10*3/uL Absolute Nucleated RBC 0.000 (0.0-0.012) X10*3/uL Nucleated RBC % (auto) 0.0 (0.0-0.2) /100WBC D-Dimer High Sensitivty 482 NG/ML Sodium 137 (135-145) mmol/L Potassium 4.2 (3.3-5.1) mmol/L Chloride 103 (96-108) mmol/L Carbon Dioxide 24 (22-29) mmol/L Anion Gap 14 (12-20) BUN 6 L (9-16) mg/dL Creatinine 0.65 (0.5-1.4) mg/dL Estim Creat Clear Calc 128.2 Estimated GFR > 60 Random Glucose 193 H (60-115) mg/dL Lactic Acid (0.5-2.0) mmol/L Lactic Acid F/U @ 2Hr (0.5-2.0) mmol/L Calcium 9.0 (8.4-10.2) mg/dL Magnesium 2.1 (1.6-2.6) mg/dL Total Bilirubin 0.3 (0.0-1.0) mg/dL Direct Bilirubin 0.1 (0.0-0.5) mg/dL AST 56 H (5-31) U/L ALT 40 H (0-31) U/L Alkaline Phosphatase 72 (39-117) U/L Troponin I High Sens 52.2 H* 34.7 H (<3.5-17.0) ng/L Total Protein 7.2 (6.5-8.0) g/dL Albumin 4.4 (3.5-5.0) g/dL TSH 1.00 (0.32-4.0) uIU/mL Beta HCG, Quant < 2 mIU/mL 02/26/25 02/26/25 Range/Units 16:34 18:48 WBC (4.8-10.8) X10*3/uL RBC (4.20-5.50) X10*6/uL Hgb (12.0-16.0) g/dl Hct (37.0-47.0) % MCV (80.0-98.0) fL MCH (27.0-33.0) pg MCHC (31.0-35.0) g/dl RDW (11.0-16.0) % Plt Count (160-400) X10*3/uL MPV (9.4-12.3) fL Immature Gran % (Auto) (0.0-0.4) % Neut % (Auto) (45-73) % Lymph % (Auto) (20-40) % [place] % (Auto) (2-11) % Eos % (Auto) (0-4) % Baso % (Auto) (0-2) % Lymph # (Auto) (1.2-4.9) X10*3/uL [place] # (Auto) (0.1-1.2) X10*3/uL Eos # (Auto) (0.0-0.4) X10*3/uL Baso # (Auto) (0.0-0.2) X10*3/uL Abs Immat Gran (auto) (0.00-0.03) X10*3/uL Absolute Neuts (auto) (2.0-8.3) x10*3/uL Absolute Nucleated RBC (0.0-0.012) X10*3/uL Nucleated RBC % (auto) (0.0-0.2) /100WBC D-Dimer High Sensitivty NG/ML Sodium (135-145) mmol/L Potassium (3.3-5.1) mmol/L Chloride (96-108) mmol/L Carbon Dioxide (22-29) mmol/L Anion Gap (12-20) BUN (9-16) mg/dL Creatinine (0.5-1.4) mg/dL Estim Creat Clear Calc Estimated GFR Random Glucose (60-115) mg/dL Lactic Acid 4.0 H* (0.5-2.0) mmol/L Lactic Acid F/U @ 2Hr 2.1 H* (0.5-2.0) mmol/L Calcium (8.4-10.2) mg/dL Magnesium (1.6-2.6) mg/dL Total Bilirubin (0.0-1.0) mg/dL Direct Bilirubin (0.0-0.5) mg/dL AST (5-31) U/L ALT (0-31) U/L Alkaline Phosphatase (39-117) U/L Troponin I High Sens (<3.5-17.0) ng/L Total Protein (6.5-8.0) g/dL Albumin (3.5-5.0) g/dL TSH (0.32-4.0) uIU/mL Beta HCG, Quant mIU/mL Independent Interpretation I performed an independent interpretation of an: Plain X-Ray (Outpatient today shows significant left-sided pneumonia) Radiology Impression Discussion of test interpretation with radiology: I have reviewed the radiologist's reading. Radiologist Impression: CLINICAL INFORMATION: hypoxia and multifocal pneumonia COMPARISON: Same-day chest x-ray TECHNIQUE: Multiple axial images were obtained through the chest after the administration of 65 mL of Omnipaque 350 intravenous contrast. Extensive vascular post-processing including two-dimensional and three-dimensional reformatted images were created and reviewed on an independent workstation. This CT examination was performed using dose optimization techniques as appropriate, variously including the following: *Automated exposure control *Adjustment of mA and/or kV according to patient size (this includes techniques or standardized protocols for targeted exams where dose is matched to indication/reason for exam; i.e. extremities or head) *Use of iterative reconstruction technique FINDINGS: QUALITY OF STUDY/CONTRAST BOLUS: Adequate PULMONARY ARTERIES: No filling defects are identified in the pulmonary arteries. THORACIC AORTA: Unremarkable LUNGS AND PLEURA: There is a space opacity with air bronchograms in the left upper lobe tracking along the major fissure and into the lingula. There is patchy groundglass and nodular densities in the left upper lobe. One of the nodular densities measures 8 mm in located in the anterior left upper lobe. There is airspace opacity in the medial superior portion of the left lower lobe as well as multifocal nodular densities with multifocal groundglass densities. Airspace opacities do not enhance which is most consistent with pneumonia. There is linear density tracking along the medial aspect of the major fissure on the right, likely atelectasis and/or scarring. There are septal lines in the anterior lower portion of the right upper lobe. Right lung is clear otherwise. There is trace pleural effusion on the left. MEDIASTINUM: There is a small prevascular node. CORONARY ARTERY CALCIFICATION: Nonvisualized CHEST WALL/AXILLA: No axillary or internal mammary lymphadenopathy. UPPER ABDOMEN: Diffuse low attenuation is noted throughout the liver. The gallbladder is absent and there is a clip in the gallbladder fossa. BONES: Unremarkable CT/CT angio chest PE protocol IMPRESSION: No evidence of pulmonary embolus. Multifocal pneumonia in the left lung, most pronounced in the left upper lobe with trace parapneumonic effusion. There are multifocal nodular densities that are probably related to pneumonia, however underlying pulmonary nodules are not ruled out. Given the patient's age, malignancy is unlikely. If there are underlying risk factors, consider follow-up CT chest without contrast after resolution of symptoms. Hepatic steatosis. Fleischner guidelines were followed. Electronically signed by: David Downey MD 02/26/2025 05:02 PM EDT RP FINDINGS: PA and lateral views of the chest are submitted. There are low lung volumes. There is airspace opacity in the left upper and lower lobes, consistent with pneumonia. There may be additional airspace opacity in the right middle lobe. There is no pleural effusion, pneumothorax, or pulmonary vascular congestion. The heart is normal in size. The bones are intact. There are surgical clips in the right upper quadrant. XR/XR chest 2V IMPRESSION: Low lung volumes. Left upper and lower lobe pneumonia. Possible additional right middle lobe pneumonia. Electronically signed by: Chai Acuña MD 02/26/2025 11:44 AM EDT External Record Review External record reviewed: Prior outpatient radiology Critical Care Time Critical Care Time Critical Care Time: Yes Total Critical Care Time: 45 Attestation: The patient required multiple lab draws, advanced imaging with CT angiography, multiple doses of antibiotics and over 30 cc/kilogram of IV fluids for treatment of sepsis Discharge Plan Discharge Clinical Impression: Community acquired pneumonia, Sepsis Patient Disposition: Admitted As Inpatient
[2025-02-26 13:19] LABS: MANUAL DIFF FLAG NO
[2025-02-26 13:21] LABS: Hematocrit 38.2 % (37.0-47.0); Hemoglobin 13.3 g/dl (12.0-16.0); Imm Gran Abs Auto 0.05 X10*3/uL (0.00-0.03); Imm Gran Pct Auto 0.5 % (0.0-0.4); Lymphocytes Absolute Auto 0.7 X10*3/uL (1.2-4.9); Mean Corpuscular HGB Conc 34.8 g/dl (31.0-35.0); Mean Corpuscular Hemoglobin 28.0 pg (27.0-33.0); Mean Corpuscular Volume 80.4 fL (80.0-98.0); NRBC Abs Auto 0.000 X10*3/uL (0.0-0.012); NRBC Pct Auto 0.0 /100WBC (0.0-0.2); Platelet Count 234 X10*3/uL (160-400); Red Blood Count 4.75 X10*6/uL (4.20-5.50); White Blood Count 11.0 X10*3/uL (4.8-10.8)
--- NOTE | 2025-02-26 13:40 | ECG_ITS ---
Test Reason : tachycardic Blood Pressure : */* mmHG Vent. Rate : 123 BPM Atrial Rate : 123 BPM P-R Int : 134 ms QRS Dur : 80 ms QT Int : 306 ms P-R-T Axes : 48 39 6 degrees QTcB Int : 438 ms Sinus tachycardia Cannot rule out Inferior infarct , age undetermined Cannot rule out Anterior infarct , age undetermined Changes could be related to body habitus or lead placement Abnormal ECG No previous ECGs available Referred By: Magda Birmingham Electronically Signed By: JOSE RONDON
[2025-02-26 13:48] LABS: Alanine Aminotransferase 40 U/L (0-31); Albumin Level 4.4 g/dL (3.5-5.0); Alkaline Phosphatase 72 U/L (39-117); Anion Gap 14 (12-20); Aspartate Amino Transferase 56 U/L (5-31); Blood Urea Nitrogen 6 mg/dL (9-16); Calcium 9.0 mg/dL (8.4-10.2); Carbon Dioxide 24 mmol/L (22-29); Chloride 103 mmol/L (96-108); Creatinine Clr Calc Pharmacy 128.2; Estimated Glomerular Filt Rate > 60; Magnesium 2.1 mg/dL (1.6-2.6); Potassium 4.2 mmol/L (3.3-5.1); Sodium 137 mmol/L (135-145); Total Protein 7.2 g/dL (6.5-8.0)
[2025-02-26 13:52] LABS: Troponin-I High Sensitivity 52.2 ng/L (<3.5-17.0)
[2025-02-26 15:03] LABS: D Dimer High Sensitivity 482 NG/ML
--- NOTE | 2025-02-26 15:37 | PC.NURSE ---
Patient has had Cold symptoms since Monday Reports SOB, chest pain when coughing, fevers on Monday and Monday Patient went to [facility] Asthma treatments and 50mg of prednsolone [facility] diagnosed with PNA and refered patient to [facility] and up to date Provider in to see patient Plan of care on going
[2025-02-26 15:40] VITALS: BP 142/98; PULSE 124; RESP 16; TEMP 38.1; O2SAT 96
--- OUTSIDE RECORDS SUMMARY | 2025-02-26 16:23 | XMS_ITS | Data Portability ---
Author Organization [place] [facility], Allergy Address [address] [address] Care Team Providers Care Multicraft Operator Name Role Phone MAGY MANUEL Primary Care Provider [phone] Assessment Encounter Date Assessment Date Assessment LastModified [...] Details Recorded Time Abnormal auditory percepti on 36784495 Active 2022 Other abnormal auditory percepti ons, bilatera l; Note: Date Diagnose d: 3 3:37 PM (H93.293 ) Not Available [facility] 4 02:45:42 Infectiv e otitis externa of bilatera l ears [id number] 07377 Completed 202212/29/2023 Other infectiv e otitis externa, bilatera l; Note: Date Diagnose d: 3 2:50 PM (H60.393 ) Not Available [facility] 4 02:45:39 Acute sinusiti s 84080224 Active 2024 ARSEN GOODMAN PA-C [address] [place] [address],[facility] [address], [place], [address] , [facility] - [facility] 5 15:47:08 Problem Notes None recorded. Medical Equipment None Reported. Allergies Allergen ID Allergen Name Allergen Category Reaction Reaction Severity Criticality Documentation Date Start Date Code Code System Note Provider Name and Address Organization Details Recorded Time 105455 Bactrim medicatio n Not available Not available Not available 10/10/2023 43505 9 RxNorm React ion: Lip swell ing; Not Available [facility] 4 01:08:18 119881 terbinafi ne medicatio n facial swelling Not available Not available 10/10/2023 37328 RxNorm React ion: Facia l swell ing; Not Available [facility] 4 01:08:20 Medications Name Sig Start Date [...] 0.35 mg tablet active Medicati on ID: [id number] B rand Name: norethin drone (contrac eptive) [...] a day 08/28 completed Medicati on ID: [id number] D uration Value: 14 Brand Name: Ciprodex [...] a day 08/28 completed Medicati on ID: [id number] D uration Value: 7 Brand Name: fluocino lone acetonid e oil Send Method: E-Prescr ibed Sub s Allowed: subs OK Medic ationGen ericName : fluocino lone acetonid e oil Not Available Not Available Not Available M- Plus 27 mg iron-1 mg tablet 08/28 completed Medicati on ID: [id number] B rand Name: M- Plus Sen d Method: E-Prescr ibed Sub s Allowed: subs OK Speci al Instruct ion: TAKE 1 TABLET BY MOUTH EVERY DAY Medi cationGe nericNam e: M-Raheem Plus Not Available Not Available Not Available Vitals Date Recorded Body height Body mass index (BMI) Body weight Provider Name and Address Organization Details Last Updated DateTime 08/28/2024 157.48 cm 32.7 kg/m2 71929.03 g MAR HARRY [place] [facility] 08/28/2024 15:22:52 Social History None recorded. Functional Status None recorded. Mental Status None recorded. Family History Nothing Reported. Medical History No medical history recorded. Gynecological HistoryNo gynecological history recorded. Obstetrics History GPAL:G 0 P 0 0 0 0 Past Encounters Encounter ID Performer Location Encounter Start Date Encounter Closed Date Diagnosis/Indication Diagnosis SNOMED-CT Code Diagnosis ICD10 Code Diagnosis IMO Codes Diagnosis Note [id number] ARSEN GOODMAN PA-C [facility] [address] [address] 08/28/2024 15:13:18 08/28/2024 15:54:21 Abnormal auditory perception 08628105 H93.293 Acute sinusitis 62155295 J01.90 Health Concerns Section Related Observation LastModified by Organization Detai ls LastModified Time None Recorded Concern Status LastModified by Organization Details LastModified Time None Recorded Advance Directives Directive None Recorded Payers Insurance Date Sequence Insurance Name Policy Number Policy Irizarry Covered Member ID Irziarry Member ID Guarantor Name 08/23/2024 1 [facility] [id number] Cande Hernandez [id number] Cande Hernandez 08/28/2024 1 [facility] [id number] Cande Hernandez [id number] Cande Hernandez Notes Date Note Type Note Provider Name and Address Organization Details Recorded Time 08/28/2024 text/html ROS as noted in the HPI 28yo female presents for evaluation of the [...] history of seasonal allergies. PAULETTE CHEEK MD [address] [place] [address], [phone], [facility] - [facility] 08/29/2024 10:41:39 OBGyn Episode No OBEpisode recorded.
[2025-02-26 16:32] LABS: Troponin-I High Sensitivity 34.7 ng/L (<3.5-17.0)
[2025-02-26] MEDS: iohexoL 350 MG/ML 100 ML INFUS..BTL IV (16:46)
--- NOTE | 2025-02-26 16:54 | PC.NURSE ---
#20 placed in the LAC, patient medicated per MAR. abx admin delayed due to patient being in CT scan
[2025-02-26 18:16] VITALS: BP 120/82; PULSE 113; RESP 25; TEMP 36.8; O2SAT 96
[2025-02-26 18:37] LABS: Reflex Lactate? Lactic Acid Added
[2025-02-26] MEDS: Lactated Ringers 1,000 ML 999 ML IV ×2 (18:48→22:00)
--- NOTE | 2025-02-26 18:49 | PHA.MEDREC ---
Addendum entered by Ghulam Montoya, PharmD 02/26/25 20:03: [facility] REC CHECKED BY [facility] Original Note: Pharmacy Consult ? Medication Reconciliation Pharmacy has completed the medication reconciliation. Patient confirmed she only takes a Multivitanin daily. Patent states she has not started Prednisone 20 mg or Albuterol HFA inhaler that was prescribed today.
[2025-02-26 19:08] VITALS: BP 129/84; PULSE 108; RESP 23; TEMP 36.8; O2SAT 97
[2025-02-26 19:09] VITALS: BP 124/78; PULSE 101; RESP 23; TEMP 36.8; O2SAT 97
[2025-02-26 19:12] LABS: ~Lactic Acid-LAB USE ONLY 2.1 mmol/L (0.5-2.0)
--- NOTE | 2025-02-26 19:28 | P.HPHOSP_ITS ---
History of Present Illness Date of Service: 02/26/25 Attending physician on admission: Jerel Fontanez Chief Complaint: SOB Pt is a 29 yo female with PMH migraines without aura, nephrolithiasis nonobstructing, von Willebrand's disease unspecified, UTI/ pyelonephritis, rhabdomyolysis related to excessive exercising, fatty liver, cholecystectomy, tonsillectomy was seen at [facility] for suspected asthma attack after starting with cold-like symptoms this past Monday. 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 Patient did go to work earlier this morning but felt horrible and decided to be seen at the [facility]. Pt did receive duoneb and prednisone at the [facility] with no improvement. CXR perfomed at [facility] and noted upper/lower lobe PNA. [place] [facility] [place] Workup in the ED included CT of the chest which noted left upper and lower lobe multifocal pneumonia. In addition there is a nodular density 8 mm located in the left anterior upper lobe. Patient did meet the criteria for sepsis with elevated lactic acid, tachycardia, tachypnea and hypoxia. EKG negative for any ischemic changes. Troponin 52.2, then 34.7 likely from demand. Patient is not complaining of chest pain at this time. Patient is started on azithromycin and ceftriaxone and duo nebs with some improvement and received IV resuscitation 30 mL/kilogram in the ED. Patient does have leukocytosis but no left shift. Lactic acid originally 4.0 now 2.1 likely related to sepsis and exposure to albuterol. Blood cultures pending. UA requested. D-dimer within normal limits no evidence of PE. Patient is not currently on control. Patient also complaining of headache and received Tylenol p.o. and Toradol IV x1 with good effect. Patient denies experiencing a migraine headache at this time. COVID/RSV/flu testing pending. Patient is seen with family at the bedside all questions and concerns were addressed. Patient states she has not been diagnosed with asthma but was given a rescue inhaler in the past from her PCP. Educated patient that she could benefit from Pulmonary consultation for formal diagnosis. Patient denies history of smoking, vaping, alcohol use, marijuana use or illicit drug use. Review of Systems 2 Review of Systems: Patient denies any current shortness of breath at rest or chest pain. Patient denies any abdominal pain, nausea or vomiting. Patient is not having any diarrhea or constipation issues. Patient reports her cough is present but it is currently nonproductive. Patient denies any current fever or chills. Patient has been having headaches symptoms not like a migraine but has had relief after being treated with oral medication and IV Toradol. Yes all other systems are reviewed and are negative [facility] Medical History (Updated 02/26/25 @ 20:36 by MAXINE Landers) ETD (eustachian tube dysfunction) Menorrhagia Dermatitis Subacromial bursitis of left shoulder joint Rhabdomyolysis Fatty liver Pyelonephritis Encounter for screening examination for sexually transmitted disease Abnormal uterine bleeding Acute UTI (urinary tract infection) Low back pain, unspecified Advised about oral contraception Migraine without aura and with status migrainosus, not intractable Obesity, class 1 Gain of weight Right lower quadrant pain Panic attack Seasonal allergies Anxiety Von Willebrand disease, unspecified Contact dermatitis Kidney stones Cognitive capacity: Alert and orientated x3 Functional capacity: independent ambulation Family History Mother Diabetes HTN (hypertension) Paternal Grandfather HTN (hypertension) Paternal Grandmother HTN (hypertension) Maternal Grandfather HTN (hypertension) Maternal Grandfather HTN (hypertension) Diabetes Maternal Grandmother HTN (hypertension) Surgical History History of esophagogastroduodenoscopy (EGD) Hx of cholecystectomy Social History Household Members: Family Housing: House Alcohol intake: never Patient Tobacco Use Status: Never used Tobacco Smoked in Last 30 Days: No Use of substances other than those prescribed or required for medical reasons: No Advance Directives: No Advance Directives Information Provided: Yes Do you have a plan to hurt others: No Plan Patient : No service: No Current occupational status: employed and other 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 Ebola Risk: Travel/Contact With Anyone From Affected Area/s: No Has Patient Experienced Ebola Symptoms: No Meds Allergies Allergy/AdvReac Type Severity Reaction Status Date / Time terbinafine (TERBINAFINE) Allergy Severe ANAPHYLAXIS Verified 02/26/25 12:34 sulfamethoxazole (From Allergy Angioedema Verified 02/26/25 12:34 Bactrim) trimethoprim (From Bactrim) Allergy Angioedema Verified 02/26/25 12:34 Home Medications ?Medication ?Instructions ?Recorded ?Confirmed ?Last Taken ?Type multivitamin 1 tab PO DAILY 02/26/25 10/0 06/2202/26/25 History Physical Exam 2 Vital Signs and Narrative: Vital Signs: Last Vital Signs Temp 98.2 F 02/26/25 19:09 Pulse 101 H 02/26/25 19:09 Resp 23 H 02/26/25 19:09 BP 124/78 02/26/25 19:09 Pulse Ox 97 02/26/25 19:09 O2 Del Method Room Air 02/26/25 19:09 BMI result Body Mass Index 33.2 Alert and orientated X3, able to give good history. Neuro: CN II-X11 intact, no deficits, visual acuity intact EYES: PERRLA, EOM intact, sclerae nonicteric, conjunctiva pink ENT: hearing intact, no issues with swallowing, uvula midline, lips moist, nares patent no epistaxis, mild case of thrush on tongue only Cardiac: S1 S2 RRR tachycardic, no murmur, no JVD, no edema in Lower ext Pulmonary: lungs diminished bilaterally with rhonchi but left greater than right and expiratory wheeze Abdominal: BS active in all 4 quadrants, no guarding, tenderness, rebounding MSK: strength 5/5 upper and lower extremities : no CVA tenderness no bladder distension Extremities: no edema in lower extremities, PT and DP pulses palpable +2 Psych: mood stable, judgement and insight good Skin: No new rashes or lesions Results Labs 02/26/25 13:15 02/26/25 13:15 Labs: Laboratory Results - last 24 hr 02/26/25 02/26/25 02/26/25 13:15 14:07 16:06 MCV 80.4 MCH 28.0 MCHC 34.8 RDW 13.2 Plt Count 234 MPV 9.3 L Immature Gran % (Auto) 0.5 H Neut % (Auto) 85.7 H Lymph % (Auto) 6.1 L [place] % (Auto) 7.4 Eos % (Auto) 0.1 Baso % (Auto) 0.2 Lymph # (Auto) 0.7 L [place] # (Auto) 0.8 Eos # (Auto) 0.0 Baso # (Auto) 0.0 Abs Immat Gran (auto) 0.05 H Absolute Neuts (auto) 9.4 H Absolute Nucleated RBC 0.000 Nucleated RBC % (auto) 0.0 D-Dimer High Sensitivty 482 Anion Gap 14 Estim Creat Clear Calc 128.2 Estimated GFR > 60 Random Glucose 193 H Lactic Acid Lactic Acid F/U @ 2Hr Calcium 9.0 Magnesium 2.1 Total Bilirubin 0.3 Direct Bilirubin 0.1 AST 56 H ALT 40 H Alkaline Phosphatase 72 Troponin I High Sens 52.2 H* 34.7 H Total Protein 7.2 Albumin 4.4 TSH 1.00 Beta HCG, Quant < 2 02/26/25 02/26/25 16:34 18:48 MCV MCH MCHC RDW Plt Count MPV Immature Gran % (Auto) Neut % (Auto) Lymph % (Auto) [place] % (Auto) Eos % (Auto) Baso % (Auto) Lymph # (Auto) [place] # (Auto) Eos # (Auto) Baso # (Auto) Abs Immat Gran (auto) Absolute Neuts (auto) Absolute Nucleated RBC Nucleated RBC % (auto) D-Dimer High Sensitivty Anion Gap Estim Creat Clear Calc Estimated GFR Random Glucose Lactic Acid 4.0 H* Lactic Acid F/U @ 2Hr 2.1 H* Calcium Magnesium Total Bilirubin Direct Bilirubin AST ALT Alkaline Phosphatase Troponin I High Sens Total Protein Albumin TSH Beta HCG, Quant Imaging Radiologist's Impressions: Impressions Chest CTA 02/26/25 16:40 IMPRESSION: No evidence of pulmonary embolus. Multifocal pneumonia in the left lung, most pronounced in the left upper lobe with trace parapneumonic effusion. There are multifocal nodular densities that are probably related to pneumonia, however underlying pulmonary nodules are not ruled out. Given the patient's age, malignancy is unlikely. If there are underlying risk factors, consider follow-up CT chest without contrast after resolution of symptoms. Hepatic steatosis. Fleischner guidelines were followed. Electronically signed by: David Downey MD 02/26/2025 05:02 PM EDT Assessment and Plan (1) Sepsis: Qualifiers: Sepsis acute organ dysfunction status: without acute organ dysfunction Sepsis type: sepsis due to unspecified organism Qualified Code(s): A41.9 - Sepsis, unspecified organism Status: Acute (2) Acute hypoxic respiratory failure: Status: Acute (3) Multifocal pneumonia: Status: Acute Plan Pt is a 29 yo female with PMH migraines without aura, nephrolithiasis nonobstructing, von Willebrand's disease unspecified, UTI/ pyelonephritis, rhabdomyolysis related to excessive exercising, fatty liver, cholecystectomy, tonsillectomy was seen at [facility] for suspected asthma attack after starting with cold-like symptoms this past Monday. 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 Patient did go to work earlier this morning but felt horrible and decided to be seen at the [facility]. Pt did receive duoneb and prednisone at the [facility] with no improvement. CXR perfomed at [facility] and noted upper/lower lobe PNA. Pt was [place] [facility] [place] Patient meets criteria for sepsis upon ED arrival and being admitted for multifocal pneumonia and acute hypoxic respiratory failure. Sepsis secondary to multifocal pneumonia Blood cultures pending Lactic acid improved from 4-2.1 IV fluids, hourly rate we will continue Hemodynamics currently stable, appropriate for admission to the medical telemetry floor Patient continues on ceftriaxone and azithromycin Supportive care to include breathing treatments and antitussives Tylenol for fever, patient currently afebrile CTA negative for PE, noted left upper lobe home memory nodule 8 mm - follow-up may be beneficial Acute hypoxic respiratory failure secondary to pneumonia Patient continues on nasal cannula wean as tolerated, pulse ox 98% Incentive spirometer ordered Xopenex nebs p.r.n. Supportive care to include antitussives Patient negative for COVID, flu and RSV Hyperglycemia Glucose in urine greater than 1000, no ketones and anion gap is closed We will check A1c for follow-up Patient has not received methylprednisolone in the ED Headache with history of migraine Patient improved with Tylenol and Toradol Patient denies that she is having any current migraine issues Suspected history of asthma Patient was given a rescue inhaler by her primary care community clinic sometime ago but states she has not officially diagnosed with asthma and does not take an inhaler daily Patient currently a nonsmoker and no history of childhood reactive airway disease Educated patient to request consultation with inspector assembly as an outpatient for further workup Patient currently a nonsmoker and does not vape Nephrolithiasis/ history of UTI/ history of rhabdo from exercising UA negative for hematuria or UTI Patient currently asymptomatic and states kidney stones are nonobstructive Renal function stable Obesity Patient counseled on the benefits of weight loss in regards to overall health and even lung function DVT prophylaxis: Lovenox Med rec pending Full code status Quality Stroke Does the patient have a stroke diagnosis?: No Reason for No Anti-thrombotic by Day Two: N/A - Med Ordered VTE Prior VTE?: No VTE Risk Level:: Medical - low VTE Device Contraindication: Treatment Not Indicated VTE Drug Contraindication: N/A - Med Ordered
[2025-02-26] MEDS: Lactated Ringers 1,000 ML 100 ML IVCONT (19:51)
[2025-02-26 20:42] VITALS: BP 127/87; PULSE 96; RESP 27; TEMP 36.9; O2SAT 95
[2025-02-26 20:53] LABS: Reflex Lactate? 2 Y
[2025-02-26 21:25] LABS: Resp Syncy Virus RNA Qual PCR NEGATIVE (Negative); SARS COV2 PCR INHOUSE NEGATIVE (Negative)
[2025-02-26 21:37] LABS: ~Lactic Acid-LAB USE ONLY 3.3 mmol/L (0.5-2.0)
[2025-02-26] MEDS: guaiFENesin 200 MG/10 ML 10 ML LIQUID PO (22:30)
--- NOTE | 2025-02-26 22:32 | PC.NURSE ---
medicated per jul. pt resting in bed, no sign of respiratory distress.
[2025-02-26 23:10] LABS: Appearance Urine Clear; Glucose Urine UA >=1000 mg/dL (Negative); PH 5.5 (5.0-9.0); Specific Gravity - Urine >= 1.030 (1.005-1.025); UMIC TRIGGER UA YES
[2025-02-27] VITALS (10 sets, daily range): BP systolic 119–138; BP diastolic 81–92; PULSE 101–126; RESP 18–24; TEMP 36.8–38.4; O2SAT 86–98; BMI 35.4
--- NOTE | 2025-02-27 | ECG_ITS ---
Test Reason : tachycardia Blood Pressure : */* mmHG Vent. Rate : 122 BPM Atrial Rate : 122 BPM P-R Int : 138 ms QRS Dur : 78 ms QT Int : 300 ms P-R-T Axes : 44 50 -8 degrees QTcB Int : 427 ms Sinus tachycardia Cannot rule out Inferior infarct (cited on or before 26-Feb-2025) Abnormal ECG When compared with ECG of 26-Feb-2025 13:54, No significant change was found Referred By: Jeanine Barker Electronically Signed By: JOSE RONDON
--- NOTE | 2025-02-27 02:26 | PC.NURSE ---
pt sleeping at this time, no respiratory distress.
--- NOTE | 2025-02-27 04:31 | PC.NURSE ---
medicated per jul for headache.
[2025-02-27] MEDS: Lactated Ringers 1,000 ML 100 ML IVCONT ×2 (05:01→15:49)
[2025-02-27] MEDS: guaiFENesin 200 MG/10 ML 10 ML LIQUID PO ×2 (05:51→20:48)
[2025-02-27 06:22] LABS: Hematocrit 37.5 % (37.0-47.0); Hemoglobin 12.3 g/dl (12.0-16.0); Mean Corpuscular HGB Conc 32.8 g/dl (31.0-35.0); Mean Corpuscular Hemoglobin 27.3 pg (27.0-33.0); Mean Corpuscular Volume 83.1 fL (80.0-98.0); NRBC Abs Auto 0.000 X10*3/uL (0.0-0.012); NRBC Pct Auto 0.0 /100WBC (0.0-0.2); Platelet Count 240 X10*3/uL (160-400); Red Blood Count 4.51 X10*6/uL (4.20-5.50); White Blood Count 9.4 X10*3/uL (4.8-10.8)
[2025-02-27 06:31] LABS: Hemoglobin A1C 145.1393 umol/L; Total Hemoglobin (HGBA1C) 3301.0169 umol/L
[2025-02-27 06:42] LABS: Anion Gap 12 (12-20); Blood Urea Nitrogen 7 mg/dL (9-16); Calcium 8.5 mg/dL (8.4-10.2); Carbon Dioxide 23 mmol/L (22-29); Chloride 109 mmol/L (96-108); Creatinine Clr Calc Pharmacy 141.2; Estimated Glomerular Filt Rate > 60; Potassium 3.7 mmol/L (3.3-5.1); Sodium 140 mmol/L (135-145)
--- NOTE | 2025-02-27 07:30 | PC.NURSE ---
Pt states H/A better. Tolerating PO fluids.
--- NOTE | 2025-02-27 07:59 | PC.NURSE ---
PT'S O2 sat down to 84. O2 @2l n.c. applied. Dr Barker notified
--- NOTE | 2025-02-27 08:01 | PC.NURSE ---
Sat up to 89 on 2l. Increased to 3l.
--- NOTE | 2025-02-27 09:36 | PC.NURSE ---
Dr Barker in to see pt
--- NOTE | 2025-02-27 10:28 | MHC.CM.PN ---
CM met with Patient at bedside, in the ED. Patient lives in a house with her Parents, who will transport to home at dc. Home/self care is Patient's goal and CM has initiated and will follow for dc planning. PCP is Dr. Soniya Colon.
[2025-02-27 12:35] LABS: Chlamydia pneumoniae PCR Not Detected (Not Detect.); Coronavirus 229E PCR Not Detected (Not Detect.); Coronavirus HKU1 PCR Not Detected (Not Detect.); Coronavirus NL63 PCR Not Detected (Not Detect.); Coronavirus OC43 PCR Not Detected (Not Detect.); RSV PCR Not Detected (Not Detect.); Rhino/Enterovirus PCR Not Detected (Not Detect.)
[2025-02-27 12:42] LABS: SARS-CoV-2 PCR Not Detected (Not Detect.)
[2025-02-27 12:43] LABS: Influenza A H1 PCR Not Detected (Not Detect.); Influenza A H1-2009 PCR Not Detected (Not Detect.); Influenza A H3 PCR Not Detected (Not Detect.)
--- NOTE | 2025-02-27 13:51 | PC.NURSE ---
Patient medicated for 03/07 headache migraine at 13:16. Spoke with Dr. Barker regarding pain management, as patient has already received the daily PRN dose of Imitrex at 5:51AM (per EMAR), and has now exceeded the daily recommended dosing of Tylenol at 3250mg over past [address] Barker ordered additional dose of Imitrex 25mg PO, to be administered.
--- NOTE | 2025-02-27 13:59 | PC.NURSE ---
Imitrex requested from pharmacy. None available in [facility]. Med to be administered upon receipt.
[2025-02-27 18:05] LABS: Thyroid Stimulating Hormone 1.81 uIU/mL (0.32-4.0)
--- NOTE | 2025-02-27 18:20 | P.PNIM_ITS ---
Subjective Subjective Date of Service: 02/28/25 Interval History: Acute hypoxemic respiratory failure/pneumonia Review of Systems Patient had low-grade fever, Has mild tachycardia 120 to 130s but asymptomatic. EKG seems similar to yesterday. Review of Systems: Yes all other systems are reviewed and are negative Physical Exam 2 Exam: Exam: Appearance: Alert.? Oriented X3. cvs: rrr, [id number]. res: Air entry fair, has mild wheezing bilateral. abd: no rebound or guarding ,nt, bs present. ext pulses present , no cyanosis . neuro: axo3 , nonfocal. Vital Signs: Vital Signs: Last Vital Signs Temp 98.9 F 02/27/25 17:14 Pulse 124 H 02/27/25 16:46 Resp 18 02/27/25 16:46 BP 134/86 02/27/25 16:46 Pulse Ox 86 L 02/27/25 16:51 O2 Del Method Room Air 02/27/25 16:51 O2 Flow Rate 3 02/27/25 14:46 BMI result Body Mass Index 35.4 Objective Data Active Medications Acetaminophen (Acetaminophen 325 Mg Tablet) 975 mg PO Q6H PRN PRN Reason: Pain, Mild 1-3,fever,headache Last Admin: 02/27/25 13:16 Dose: 975 mg Documented By: DRAKE Calcium Carbonate (Calcium Carbonate 750 Mg Tab.Chew) 750 mg PO Q4H PRN PRN Reason: Heartburn Ceftriaxone Sodium (Ceftriaxone Sodium 1 Gm Vial) 1 gm IVPUSH Q24H [facility] Last Admin: 02/27/25 15:50 Dose: 1 gm Documented By: DRAKE Clotrimazole (Clotrimazole 10 Mg Kirk) 10 mg MUCOUS MEM TID [facility] Stop: 03/02/25 08:59 Last Admin: 02/27/25 18:03 Dose: 10 mg Documented By: MARIA DE JESUS Enoxaparin Sodium (Enoxaparin Sodium 40 Mg/0.4 Ml Syringe) 40 mg SUBCUT Q24H [facility] Last Admin: 02/26/25 20:28 Dose: 40 mg Documented By: BELA Guaifenesin (Guaifenesin 200 Mg/10 Ml 10 Ml Liquid) 10 ml PO Q4H PRN PRN Reason: Cough Last Admin: 02/27/25 05:51 Dose: 10 ml Documented By: CHRISTOPH Lactated Ringer's (Lr) 1,000 mls @ 100 mls/hr IVCONT .Q10H [facility] Last Admin: 02/27/25 15:49 Dose: 100 mls/hr Documented By: DRAKE Azithromycin 500 mg/ Sodium (Chloride) 250 mls @ 125 mls/hr IV Q24H [facility] Last Admin: 02/27/25 15:50 Dose: 125 mls/hr Documented By: DRAKE Levalbuterol HCl (Levalbuterol Hcl 1.25 Mg/3 Ml Vial.Neb) 1.25 mg INHALE Q4H PRN PRN Reason: Shortness of Breath/Wheezing Loratadine (Loratadine 10 Mg Tablet) 10 mg PO DAILY [facility] Last Admin: 02/27/25 10:41 Dose: 10 mg Documented By: CHRISTOPH Magnesium Hydroxide (Milk Of Magnesia 30 Ml Oral.Susp) 30 ml PO DAILY PRN PRN Reason: Constipation Melatonin (Melatonin 3 Mg Tablet) 6 mg PO BEDTIME PRN PRN Reason: Insomnia Multivitamins/Vitamin C (Multivitamin Tablet) 1 tab PO DAILY [facility] Last Admin: 02/27/25 14:40 Dose: 1 tab Documented By: DRAKE Ondansetron HCl (Ondansetron Hcl 4 Mg/2 Ml Vial) 4 mg IVPUSH Q8H PRN PRN Reason: Nausea and Vomiting Last Admin: 02/27/25 05:47 Dose: 4 mg Documented By: CHRISTOPH Polyethylene Glycol (Polyethylene Glycol 3350 17 Gm Powd.Pack) 17 gm PO DAILY PRN PRN Reason: Constipation Sodium Chloride (0.9 % Sodium Chloride Flush 3 Ml Syringe) 3 ml IVFLUSH QSHIFT [facility] Last Admin: 02/27/25 16:11 Dose: Not Given Documented By: DRAKE Non-Admin Reason: IV Running Sumatriptan Succinate (Sumatriptan Succinate 25 Mg Tablet) 25 mg PO DAILY PRN PRN Reason: Migraine Headache Last Admin: 02/27/25 05:51 Dose: 25 mg Labs 02/27/25 06:16 02/27/25 06:16 Labs: Laboratory Results - last 24 hr 02/26/25 02/26/25 02/26/25 18:48 20:42 21:16 MCV MCH MCHC RDW Plt Count MPV Absolute Nucleated RBC Nucleated RBC % (auto) Anion Gap Estim Creat Clear Calc Estimated GFR Random Glucose Estimat Average Glucose Hemoglobin A1c % Lactic Acid Lactic Acid F/U @ 2Hr 2.1 H* Lactic Acid F/U @ 4Hr 3.3 H* Calcium TSH Urine Color Urine Appearance Urine pH Ur Specific [place] Urine Protein Urine Glucose (UA) Urine Ketones Urine Blood Urine Nitrite Ur Leukocyte Esterase Urine RBC Urine WBC Ur Squamous Epith Cells Urine Bacteria Hyaline Casts Respiratory Panel [place] Adenovirus (Rapid PCR) B.pert (TEM-PCR) B.parapertussis DNA PCR C. pneumoniae DNA (PCR) Coronavirus OC43 (PCR) Coronavirus HKU1 (PCR) Coronavirus 229E (PCR) Coronavirus NL63 (PCR) Human Metapneumovir PCR Influenza A (RT-PCR) Influenza A (H1) PCR Influ A (H1/09) PCR Influenza A (H3) PCR Influenza Type A (PCR) NEGATIVE Influenza B (RT-PCR) Influenza Type B (PCR) NEGATIVE M. pneumoniae (PCR) Parainfluenza 1 (PCR) Parainfluenza 2 (PCR) Parainfluenza 3 (PCR) Parainfluenza 4 (PCR) RSV (PCR) RSV RNA Qual (PCR) NEGATIVE Entero/Rhino (PCR) SARS-CoV-2 RNA (RT-PCR) NEGATIVE 02/26/25 02/27/25 02/27/25 23:04 06:16 10:27 MCV 83.1 MCH 27.3 MCHC 32.8 RDW 13.5 Plt Count 240 MPV 9.3 L Absolute Nucleated RBC 0.000 Nucleated RBC % (auto) 0.0 Anion Gap 12 Estim Creat Clear Calc 141.2 Estimated GFR > 60 Random Glucose 112 Estimat Average Glucose 131 Hemoglobin A1c % 6.2 H Lactic Acid 1.3 Lactic Acid F/U @ 2Hr Lactic Acid F/U @ 4Hr Calcium 8.5 TSH 1.81 Urine Color Yellow Urine Appearance Clear Urine pH 5.5 Ur Specific [place] >= 1.030 H Urine Protein Trace Urine Glucose (UA) >=1000 H Urine Ketones Negative Urine Blood Negative Urine Nitrite Negative Ur Leukocyte Esterase Negative Urine RBC 0-2 Urine WBC 0-5 Ur Squamous Epith Cells 0-2 Urine Bacteria None Seen Hyaline Casts 0-2 Respiratory Panel [place] See Note Adenovirus (Rapid PCR) Not Detected B.pert (TEM-PCR) Not Detected B.parapertussis DNA PCR Not Detected C. pneumoniae DNA (PCR) Not Detected Coronavirus OC43 (PCR) Not Detected Coronavirus HKU1 (PCR) Not Detected Coronavirus 229E (PCR) Not Detected Coronavirus NL63 (PCR) Not Detected Human Metapneumovir PCR Not Detected Influenza A (RT-PCR) Not Detected Influenza A (H1) PCR Not Detected Influ A (H1/09) PCR Not Detected Influenza A (H3) PCR Not Detected Influenza Type A (PCR) Influenza B (RT-PCR) Not Detected Influenza Type B (PCR) M. pneumoniae (PCR) Detected A Parainfluenza 1 (PCR) Not Detected Parainfluenza 2 (PCR) Not Detected Parainfluenza 3 (PCR) Not Detected Parainfluenza 4 (PCR) Not Detected RSV (PCR) Not Detected RSV RNA Qual (PCR) Entero/Rhino (PCR) Not Detected SARS-CoV-2 RNA (RT-PCR) Not Detected Assessment and Plan (1) Sepsis: Status: Acute Plan 29 yo female with PMH migraines without aura, nephrolithiasis nonobstructing, von Willebrand's disease unspecified, UTI/ pyelonephritis, rhabdomyolysis related to excessive exercising, fatty liver, cholecystectomy, tonsillectomy was seen at [facility] for suspected asthma attack after starting with cold-like symptoms this past Monday. 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 Patient did go to work earlier this morning but felt horrible and decided to be seen at the [facility]. Pt did receive duoneb and prednisone at the [facility] [place] with no improvement. CXR perfomed at [facility] [place] and noted upper/lower lobe PNA. Pt was sent to ED at [facility] for further evaluation. Patient meets criteria for sepsis upon ED arrival and being admitted for multifocal pneumonia and acute hypoxic respiratory failure. Sepsis secondary to multifocal pneumonia Blood cultures pending Acute lactic acidosis resolved with IV hydration. Patient had mild tachycardia-happens more with migraine headache. Leukocytosis resolved Hemodynamics currently stable, appropriate for admission to the medical telemetry floor continues on ceftriaxone and azithromycin Supportive care to include breathing treatments and antitussives Tylenol for fever, patient currently afebrile CTA negative for PE, noted left upper lobe home memory nodule 8 mm - follow-up may be beneficial Acute hypoxic respiratory failure secondary to pneumonia, asthma exacerbation mild intermittent Patient continues on nasal cannula wean as tolerated, pulse ox 98% Incentive spirometer ordered Xopenex nebs p.r.n. Supportive care to include antitussives Patient negative for COVID, flu and RSV Continue nebs, steroids, antibiotics Hyperglycemia Glucose in urine greater than 1000, no ketones and anion gap is closed We will check A1c for follow-up Patient has not received methylprednisolone in the ED Headache with history of migraine Patient improved with Tylenol and Toradol Patient denies that she is having any current migraine issues Suspected history of asthma Patient was given a rescue inhaler by her primary care community clinic sometime ago but states she has not officially diagnosed with asthma and does not take an inhaler daily Patient currently a nonsmoker and no history of childhood reactive airway disease Educated patient to request consultation with lease administration supervisor as an outpatient for further workup Patient currently a nonsmoker and does not vape Nephrolithiasis/ history of UTI/ history of rhabdo from exercising UA negative for hematuria or UTI Patient currently asymptomatic and states kidney stones are nonobstructive Renal function stable Obesity Patient counseled on the benefits of weight loss in regards to overall health and even lung function DVT prophylaxis: Lovenox Ongoing need of stay: Acute hypoxemic respiratory failure secondary to bilateral pneumonia-respiratory status is not optimal yet, need of oxygen, IV antibiotics. Quality Stroke Does the patient have a stroke diagnosis?: No Reason for No Anti-thrombotic by Day Two: N/A - Med Ordered VTE Prior VTE?: No VTE Risk Level:: Medical - low VTE Device Contraindication: Treatment Not Indicated VTE Drug Contraindication: N/A - Med Ordered
[2025-02-28] VITALS (9 sets, daily range): BP systolic 117–146; BP diastolic 66–86; PULSE 105–134; RESP 16–20; TEMP 36.7–37.1; O2SAT 92–98
[2025-02-28] MEDS: Lactated Ringers 1,000 ML 100 ML IVCONT (04:03)
--- NOTE | 2025-02-28 04:13 | PC.NURSE ---
Pt's SpO2 went down to mid 80's on 2L NC. HR 120's. Temp99.7. I have her PRN lebalbuterol and Tylenol given. lung sound CTA, pt does not complain of SOB. pt's SpO2 was still low, increased O2 to 90%5L oxymask. Her SpO2 improved to 90% Dr. Pringle was notified and ordered chest X-ray and IV solumedrol. Pt stated she feels so much better now.
--- NOTE | 2025-02-28 09:58 | PM.CNPUL ---
History of Present Illness History of Present Illness Consult date: 02/28/25 Chief complaint: Multi focal PNA/sepsis Narrative: This is an inpatient pulmonary consultation. The patient is a 29 year woman previously healthy presenting with worsening respiratory symptoms cough. She came to the ER. She was found to have and abnormal chest x-ray and ultimately had a CT scan of the chest which was personally by me. Significant airspace disease and consolidations bilaterally left more than right. The patient is placed on oxygen and oxygen requirements have not been going up. She has been using the incentive spirometer and also has not Aerobika. She has been using it regularly. She was started on Solu-Medrol today and continues on azithromycin and ceftriaxone for the community-acquired pneumonia. There is a family history of asthma although she has never been diagnosed with asthma. She is getting respiratory treatments regularly. At this time will going to continue with the current respiratory regimen will request additional blood work. Review of Systems Constitutional: Constitutional: Reports body ache(s), Reports chills, Reports fever(s), Reports headache(s) and Reports malaise Eyes: Eyes: Denies blurry vision ENT: Denies vertigo, Denies dizziness and Reports headache(s) Cardiovascular: Cardiovascular: Denies chest pain, Reports dyspnea and Reports dyspnea on exertion Respiratory: Respiratory: Reports chest congestion, Reports cough, Reports dyspnea, Reports dyspnea on exertion and Reports wheezing Gastrointestinal: Gastrointestinal: Denies abdominal pain, Denies nausea and Denies vomiting Musculoskeletal: Musculoskeletal: Reports back pain Integumentary/Breasts: Skin/Breast: Denies rash Neurologic: Denies vertigo, Denies dizziness and Reports headache(s) Allergic/Immunologic: Allergic/Immunologic: Reports wheezing [facility] Past Medical History Medical History (Updated 02/28/25 @ 10:00 by Ruben Brown MD) ETD (eustachian tube dysfunction) Menorrhagia Dermatitis Subacromial bursitis of left shoulder joint Rhabdomyolysis Fatty liver Pyelonephritis Encounter for screening examination for sexually transmitted disease Abnormal uterine bleeding Acute UTI (urinary tract infection) Low back pain, unspecified Advised about oral contraception Migraine without aura and with status migrainosus, not intractable Obesity, class 1 Gain of weight Right lower quadrant pain Panic attack Seasonal allergies Anxiety Von Willebrand disease, unspecified Contact dermatitis Kidney stones Family History Family History Mother Diabetes HTN (hypertension) Paternal Grandfather HTN (hypertension) Paternal Grandmother HTN (hypertension) Maternal Grandfather HTN (hypertension) Maternal Grandfather HTN (hypertension) Diabetes Maternal Grandmother HTN (hypertension) Surgical History Surgical History History of esophagogastroduodenoscopy (EGD) Hx of cholecystectomy Social History Social History Household Members: Family Housing: House Alcohol intake: never Patient Tobacco Use Status: Never used Tobacco service: No Current occupational status: employed and other 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 Travel History Ebola Risk: Travel/Contact With Anyone From Affected Area/s: No Has Patient Experienced Ebola Symptoms: No Meds Allergies Allergy/AdvReac Type Severity Reaction Status Date / Time terbinafine (TERBINAFINE) Allergy Severe ANAPHYLAXIS Verified 02/26/25 12:34 sulfamethoxazole (From Allergy Angioedema Verified 02/26/25 12:34 Bactrim) trimethoprim (From Bactrim) Allergy Angioedema Verified 02/26/25 12:34 Active Medications: Current Medications Acetaminophen (Acetaminophen 325 Mg Tablet) 975 mg PO Q6H PRN PRN Reason: Pain, Mild 1-3,fever,headache Last Admin: 02/28/25 01:33 Dose: 975 mg Calcium Carbonate (Calcium Carbonate 750 Mg Tab.Chew) 750 mg PO Q4H PRN PRN Reason: Heartburn Ceftriaxone Sodium (Ceftriaxone Sodium 1 Gm Vial) 1 gm IVPUSH Q24H [facility] Last Admin: 02/27/25 15:50 Dose: 1 gm Clotrimazole (Clotrimazole 10 Mg Kirk) 10 mg MUCOUS MEM TID [facility] Stop: 03/02/25 08:59 Last Admin: 02/28/25 07:48 Dose: 10 mg Enoxaparin Sodium (Enoxaparin Sodium 40 Mg/0.4 Ml Syringe) 40 mg SUBCUT Q24H [facility] Last Admin: 02/27/25 19:49 Dose: 40 mg Guaifenesin (Guaifenesin 200 Mg/10 Ml 10 Ml Liquid) 10 ml PO Q4H PRN PRN Reason: Cough Last Admin: 02/27/25 20:48 Dose: 10 ml Azithromycin 500 mg/ Sodium (Chloride) 250 mls @ 125 mls/hr IV Q24H [facility] Last Infusion: 02/27/25 17:50 Dose: Infused Levalbuterol HCl (Levalbuterol Hcl 1.25 Mg/3 Ml Vial.Neb) 1.25 mg INHALE Q4H PRN PRN Reason: Shortness of Breath/Wheezing Last Admin: 02/28/25 01:49 Dose: 1.25 mg Levalbuterol HCl (Levalbuterol Hcl 1.25 Mg/3 Ml Vial.Neb) 1.25 mg INHALE RQ4H [facility] Last Admin: 02/28/25 08:16 Dose: 1.25 mg Loratadine (Loratadine 10 Mg Tablet) 10 mg PO DAILY [facility] Last Admin: 02/28/25 07:48 Dose: 10 mg Magnesium Hydroxide (Milk Of Magnesia 30 Ml Oral.Susp) 30 ml PO DAILY PRN PRN Reason: Constipation Melatonin (Melatonin 3 Mg Tablet) 6 mg PO BEDTIME PRN PRN Reason: Insomnia Methylprednisolone Sodium Succinate (Methylprednisolone Sod Succ 40 Mg/Ml Vial) 40 mg IVPUSH Q12H [facility] Last Admin: 02/28/25 09:00 Dose: 40 mg Multivitamins/Vitamin C (Multivitamin Tablet) 1 tab PO DAILY [facility] Last Admin: 02/28/25 07:48 Dose: 1 tab Ondansetron HCl (Ondansetron Hcl 4 Mg/2 Ml Vial) 4 mg IVPUSH Q8H PRN PRN Reason: Nausea and Vomiting Last Admin: 02/28/25 01:33 Dose: 4 mg Polyethylene Glycol (Polyethylene Glycol 3350 17 Gm Powd.Pack) 17 gm PO DAILY PRN PRN Reason: Constipation Sodium Chloride (0.9 % Sodium Chloride Flush 3 Ml Syringe) 3 ml IVFLUSH QSHIFT [facility] Last Admin: 02/28/25 07:51 Dose: Not Given Sumatriptan Succinate (Sumatriptan Succinate 25 Mg Tablet) 25 mg PO DAILY PRN PRN Reason: Migraine Headache Last Admin: 02/27/25 05:51 Dose: 25 mg Home Medications ?Medication ?Instructions ?Recorded ?Confirmed ?Last Taken ?Type multivitamin 1 tab PO DAILY 02/26/25 02/26/25 02/26/25 History Physical Exam Vital Signs: Vital Signs: Last Vital Signs Temp 98.8 F 02/28/25 07:26 Pulse 105 H 02/28/25 08:19 Resp 18 02/28/25 08:19 BP 122/75 02/28/25 07:26 Pulse Ox 92 02/28/25 07:26 O2 Del Method Oxymask 02/28/25 07:26 O2 Flow Rate 5 02/28/25 07:26 BMI result Body Mass Index 35.4 Const: General: healthy appearing, comfortable, no acute distress, alert and awake Nutritional Appearance: well nourished Orientation/consciousness: patient oriented x3 HEENT: Head: Yes normocephalic and Yes atraumatic Eyes: Eyelids: Yes eyelids normal Conjunctivae: conjunctivae normal Sclerae: sclerae normal Corneas: corneas normal Pupils: Equal, round and reactive pupils present EOM: EOMs intact bilaterally Neck: Neck: Yes full ROM Resp: Effort & Inspection: normal respiratory effort and able to speak in complete sentences Auscultation: rhonchi (Left middle to upper lobe rhonchi) Cardio: Rate: tachycardic Rhythm: regular rhythm GI: Inspection: No distended Palpation (GI): Soft to palpation, not firm, nontender, no guarding and not rigid Skin: General skin exam: elasticity normal Neuro: General: patient oriented x3 Cranial nerves: Yes Equal, round and reactive pupils present and Yes Bilaterally intact EOM present Cognition (Neuro): normal cognition Results Laboratory Findings 02/27/25 06:16 02/27/25 06:16 Abnormal lab findings: Abnormal Labs 02/26/25 02/26/25 02/26/25 13:15 16:06 16:34 WBC 11.0 H MPV 9.3 L Immature Gran % (Auto) 0.5 H Neut % (Auto) 85.7 H Lymph % (Auto) 6.1 L Lymph # (Auto) 0.7 L Abs Immat Gran (auto) 0.05 H Absolute Neuts (auto) 9.4 H Chloride BUN 6 L Random Glucose 193 H Hemoglobin A1c % Lactic Acid 4.0 H* Lactic Acid F/U @ 2Hr Lactic Acid F/U @ 4Hr AST 56 H ALT 40 H Troponin I High Sens 52.2 H* 34.7 H Ur Specific [place] Urine Glucose (UA) M. pneumoniae (PCR) 02/26/25 02/26/25 02/26/25 18:48 21:16 23:04 WBC MPV Immature Gran % (Auto) Neut % (Auto) Lymph % (Auto) Lymph # (Auto) Abs Immat Gran (auto) Absolute Neuts (auto) Chloride BUN Random Glucose Hemoglobin A1c % Lactic Acid Lactic Acid F/U @ 2Hr 2.1 H* Lactic Acid F/U @ 4Hr 3.3 H* AST ALT Troponin I High Sens Ur Specific [place] >= 1.030 H Urine Glucose (UA) >=1000 H M. pneumoniae (PCR) 02/27/25 02/27/25 06:16 10:27 WBC MPV 9.3 L Immature Gran % (Auto) Neut % (Auto) Lymph % (Auto) Lymph # (Auto) Abs Immat Gran (auto) Absolute Neuts (auto) Chloride 109 H BUN 7 L Random Glucose Hemoglobin A1c % 6.2 H Lactic Acid Lactic Acid F/U @ 2Hr Lactic Acid F/U @ 4Hr AST ALT Troponin I High Sens Ur Specific [place] Urine Glucose (UA) M. pneumoniae (PCR) Detected A Microbiology: Microbiology 02/26/25 16:38 Blood - Venous Blood Culture - Preliminary No growth after 24 hours. 02/26/25 16:33 Blood - Venous Blood Culture - Preliminary No growth after 24 hours. Assessment and Plan (1) Multifocal pneumonia: Status: Acute (2) Community acquired pneumonia: Qualifiers: Laterality: unspecified laterality Qualified Code(s): J18.9 - Pneumonia, unspecified organism Status: Acute (3) Acute hypoxic respiratory failure: Status: Acute Plan The patient is presenting with severe community-acquired pneumonia. Continue oxygen supplementation to maintain a pulse ox above 90% Agree with CPT with the incentive spirometer and Acapella valve Start Mucinex as an expectorant Continue Solu-Medrol 40 mg IV twice a day. May have to increase if no better Continue ceftriaxone azithromycin to treat for mycoplasma pneumonia. Blood work requested Urine studies for strep pneumo and also Legionella to make sure that we are covering the differential specially with her severe presentation. Procedures Date of Service Date of Service: 02/28/25
--- NOTE | 2025-02-28 11:37 | MHC.CM.PN ---
Per ROUNDS discussion, Patient is not yet medically cleared for dc (more Hypoxic); home is the goal and CM will continue to follow.
[2025-02-28] MEDS: 0.9 % Sodium Chloride Flush 3 ML SYRINGE IVFLUSH (15:08)
[2025-03-01] VITALS (10 sets, daily range): BP systolic 117–139; BP diastolic 69–79; PULSE 95–136; RESP 15–20; TEMP 36.4–37.2; O2SAT 91–98
[2025-03-01] MEDS: guaiFENesin 200 MG/10 ML 10 ML LIQUID PO ×2 (01:43→08:58)
[2025-03-01] MEDS: 0.9 % Sodium Chloride Flush 3 ML SYRINGE IVFLUSH ×4 (01:46→20:36)
[2025-03-01 04:13] LABS: HIV Num 1 0.06 S/CO (0.00-0.99)
--- NOTE | 2025-03-01 08:13 | P.PNIM_ITS ---
Subjective Subjective Date of Service: 03/01/25 Interval History: hypoxia Review of Systems sob somewhat improving get more hypoxic&more tachycardic: when has aggressive cough especially no fevers Review of Systems: Yes all other systems are reviewed and are negative Physical Exam 2 Exam: Exam: Appearance: Alert.? Oriented X3. cvs: [id number], [id number]. res: Air entry fair, has mild wheezing bilateral. abd: no rebound or guarding ,nt, bs present. ext pulses present , no cyanosis . neuro: axo3 , nonfocal. Vital Signs: Vital Signs: Last Vital Signs Temp 98.0 F 03/01/25 07:44 Pulse 136 H 03/01/25 07:44 Resp 20 03/01/25 07:44 BP 139/75 03/01/25 07:44 Pulse Ox 92 03/01/25 07:44 O2 Del Method Oxymask 03/01/25 07:44 O2 Flow Rate 5 03/01/25 07:44 BMI result Body Mass Index 35.4 Objective Data Active Medications Acetaminophen (Acetaminophen 325 Mg Tablet) 975 mg PO Q6H PRN PRN Reason: Pain, Mild 1-3,fever,headache Last Admin: 02/28/25 01:33 Dose: 975 mg Documented By: ROHSAN Calcium Carbonate (Calcium Carbonate 750 Mg Tab.Chew) 750 mg PO Q4H PRN PRN Reason: Heartburn Ceftriaxone Sodium (Ceftriaxone Sodium 1 Gm Vial) 1 gm IVPUSH Q24H [facility] Last Admin: 02/28/25 15:07 Dose: 1 gm Documented By: MARIA DE JESUS Clotrimazole (Clotrimazole 10 Mg Kirk) 10 mg MUCOUS MEM TID [facility] Stop: 03/02/25 08:59 Last Admin: 02/28/25 21:07 Dose: 10 mg Documented By: SUZANNE Enoxaparin Sodium (Enoxaparin Sodium 40 Mg/0.4 Ml Syringe) 40 mg SUBCUT Q24H [facility] Last Admin: 02/28/25 21:04 Dose: 40 mg Documented By: SUZANNE Guaifenesin (Guaifenesin 200 Mg/10 Ml 10 Ml Liquid) 10 ml PO Q4H PRN PRN Reason: Cough Last Admin: 03/01/25 01:43 Dose: 10 ml Documented By: SUZANNE Azithromycin 500 mg/ Sodium (Chloride) 250 mls @ 125 mls/hr IV Q24H [facility] Last Infusion: 02/28/25 17:10 Dose: Infused Documented By: MARIA DE JESUS Levalbuterol HCl (Levalbuterol Hcl 1.25 Mg/3 Ml Vial.Neb) 1.25 mg INHALE Q4H PRN PRN Reason: Shortness of Breath/Wheezing Last Admin: 02/28/25 01:49 Dose: 1.25 mg Documented By: ROSHAN Levalbuterol HCl (Levalbuterol Hcl 1.25 Mg/3 Ml Vial.Neb) 1.25 mg INHALE RQ4H [facility] Last Admin: 03/01/25 07:21 Dose: 1.25 mg Documented By: ALEXI Loratadine (Loratadine 10 Mg Tablet) 10 mg PO DAILY [facility] Last Admin: 02/28/25 07:48 Dose: 10 mg Documented By: MARIA DE JESUS Magnesium Hydroxide (Milk Of Magnesia 30 Ml Oral.Susp) 30 ml PO DAILY PRN PRN Reason: Constipation Melatonin (Melatonin 3 Mg Tablet) 6 mg PO BEDTIME PRN PRN Reason: Insomnia Methylprednisolone Sodium Succinate (Methylprednisolone Sod Succ 40 Mg/Ml Vial) 40 mg IVPUSH Q12H [facility] Last Admin: 02/28/25 21:07 Dose: 40 mg Documented By: SUZANNE Multivitamins/Vitamin C (Multivitamin Tablet) 1 tab PO DAILY [facility] Last Admin: 02/28/25 07:48 Dose: 1 tab Documented By: MARIA DE JESUS Ondansetron HCl (Ondansetron Hcl 4 Mg/2 Ml Vial) 4 mg IVPUSH Q8H PRN PRN Reason: Nausea and Vomiting Last Admin: 02/28/25 01:33 Dose: 4 mg Documented By: ROSHAN Polyethylene Glycol (Polyethylene Glycol 3350 17 Gm Powd.Pack) 17 gm PO DAILY PRN PRN Reason: Constipation Sodium Chloride (0.9 % Sodium Chloride Flush 3 Ml Syringe) 3 ml IVFLUSH QSHIFT [facility] Last Admin: 03/01/25 01:46 Dose: 3 ml Documented By: SUZANNE Sumatriptan Succinate (Sumatriptan Succinate 25 Mg Tablet) 25 mg PO DAILY PRN PRN Reason: Migraine Headache Last Admin: 02/27/25 05:51 Dose: 25 mg Labs 02/27/25 06:16 02/27/25 06:16 Labs: Laboratory Results - last 24 hr 02/28/25 02/28/25 10:10 15:20 ESR 43 H HIV 1&2 Ab/P24 Ag 4thGn Nonreactive Microbiology Microbiology Results: Microbiology 02/26/25 16:38 Blood Culture - Preliminary Blood - Venous No growth after 48 hours. 02/26/25 16:33 Blood Culture - Preliminary Blood - Venous No growth after 48 hours. Assessment and Plan (1) Sepsis: Status: Acute Plan 29 yo female with PMH migraines without aura, nephrolithiasis nonobstructing, von Willebrand's disease unspecified, UTI/ pyelonephritis, rhabdomyolysis related to excessive exercising, fatty liver, cholecystectomy, tonsillectomy was seen at [facility] for suspected asthma attack after starting with cold-like symptoms this past Monday. 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 Patient did go to work earlier this morning but felt horrible and decided to be seen at the [facility]. Pt did receive duoneb and prednisone at the [facility] with no improvement. [facility] perf[facility] at [facility] and noted upper/lower lobe PNA. Pt was sent to ED at [facility] for further evaluation. Patient meets criteria for sepsis upon ED arrival and being admitted for multifocal pneumonia and acute hypoxic respiratory failure. Sepsis secondary to multifocal pneumonia Blood cultures pending Acute lactic acidosis resolved with IV hydration. Patient had mild tachycardia-happens more with migraine headache. Leukocytosis resolved Hemodynamics currently stable, appropriate for admission to the medical telemetry floor continues on ceftriaxone and azithromycin Supportive care to include breathing treatments and antitussives Tylenol for fever, patient currently afebrile CTA negative for PE, noted left upper lobe home memory nodule 8 mm - follow-up may be beneficial pulm followin Acute hypoxic respiratory failure secondary to pneumonia, asthma exacerbation mild intermittent Patient continues on nasal cannula wean as tolerated, pulse ox 94% Incentive spirometer ordered Supportive care to include antitussives Patient negative for COVID, flu and RSV Continue Xopenex nebs,steriods ,taper oxygen ,added hycodan prn for cough. Hyperglycemia: new onset dm Glucose in urine greater than 1000, no ketones and anion gap is closed a1c is 6.2 willchange diet to dm fs with sliding scale coverage. Headache with history of migraine Patient improved with Tylenol and Toradol Patient denies that she is having any current migraine issues Suspected history of asthma Patient was given a rescue inhaler by her primary care community clinic sometime ago but states she has not officially diagnosed with asthma and does not take an inhaler daily Patient currently a nonsmoker and no history of childhood reactive airway disease Educated patient to request consultation with plant control operator as an outpatient for further workup Patient currently a nonsmoker and does not vape Nephrolithiasis/ history of UTI/ history of rhabdo from exercising UA negative for hematuria or UTI Patient currently asymptomatic and states kidney stones are nonobstructive Renal function stable Obesity Patient counseled on the benefits of weight loss in regards to overall health and even lung function DVT prophylaxis: Lovenox Ongoing need of stay: Acute hypoxemic respiratory failure secondary to bilateral pneumonia-respiratory status is not optimal yet, need of oxygen, IV antibiotics, new onset dm-moniter gfs closley/sliding scale coverage. Quality Stroke Does the patient have a stroke diagnosis?: No Reason for No Anti-thrombotic by Day Two: N/A - Med Ordered VTE Prior VTE?: No VTE Risk Level:: Medical - low VTE Device Contraindication: Treatment Not Indicated VTE Drug Contraindication: N/A - Med Ordered
[2025-03-01] MEDS: guaiFEN/Codeine SF 200/20/10ML 10 ML LIQUID PO (16:25)
[2025-03-01 20:10] LABS: Glucose, Whole Blood 318 mg/dL (60-115)
[2025-03-01 20:10] LABS: Glucose, Whole Blood 345 mg/dL (60-115)
[2025-03-02] VITALS (10 sets, daily range): BP systolic 101–136; BP diastolic 64–86; PULSE 82–119; RESP 15–20; TEMP 36.3–37.1; O2SAT 3–98
[2025-03-02 07:18] LABS: Glucose, Whole Blood 211 mg/dL (60-115)
--- NOTE | 2025-03-02 08:16 | HO.PM.IMPN ---
Subjective Subjective Date of Service: 03/02/25 Interval History: hypoxia Review of Systems sob somewhat improving still hypoxic with minimal excersion Review of Systems: Yes all other systems are reviewed and are negative Physical Exam Exam: Exam: Appearance: Alert.? Oriented X3. cvs: rrr, [id number]. res: Air entry fair, has mild wheezing bilateral. abd: no rebound or guarding ,nt, bs present. ext pulses present , no cyanosis . neuro: axo3 , nonfocal. Vital Signs: Vital Signs: Last Vital Signs Temp 98.7 F 03/02/25 07:29 Pulse 100 03/02/25 07:57 Resp 15 03/02/25 07:57 BP 113/72 03/02/25 07:29 Pulse Ox 95 03/02/25 07:29 O2 Del Method Oxymask 03/02/25 07:29 O2 Flow Rate 5 03/02/25 07:29 BMI result Body Mass Index 35.4 Objective Data Active Medications Acetaminophen (Acetaminophen 325 Mg Tablet) 975 mg PO Q6H PRN PRN Reason: Pain, Mild 1-3,fever,headache Last Admin: 03/01/25 08:58 Dose: 975 mg Documented By: HALLIE Calcium Carbonate (Calcium Carbonate 750 Mg Tab.Chew) 750 mg PO Q4H PRN PRN Reason: Heartburn Ceftriaxone Sodium (Ceftriaxone Sodium 1 Gm Vial) 1 gm IVPUSH Q24H [facility] Last Admin: 03/01/25 16:25 Dose: 1 gm Documented By: HALLIE Clotrimazole (Clotrimazole 10 Mg Kirk) 10 mg MUCOUS MEM TID [facility] Stop: 03/02/25 08:59 Last Admin: 03/01/25 20:33 Dose: 10 mg Documented By: SUZANNE Dextrose (Dextrose 50 % 25 Gm/50 Ml Syringe) 25 gm IVPUSH Q15M PRN; Protocol PRN Reason: per Hypoglycemia Standing Ord. Enoxaparin Sodium (Enoxaparin Sodium 40 Mg/0.4 Ml Syringe) 40 mg SUBCUT Q24H [facility] Last Admin: 03/01/25 20:34 Dose: 40 mg Documented By: SUZANNE Glucose (Glucose Gel 15 Gm Gel..Gram.) 15 gm PO Q15M PRN; Protocol PRN Reason: per Hypoglycemia Standing Ord. Guaifenesin (Guaifenesin 200 Mg/10 Ml 10 Ml Liquid) 10 ml PO Q4H PRN PRN Reason: Cough Last Admin: 03/01/25 08:58 Dose: 10 ml Documented By: HALLIE Guaifenesin/Codeine Phosphate (Guaifen/Codeine Sf 200/20/10ml 10 Ml Liquid) 10 ml PO Q4H PRN PRN Reason: Cough Last Admin: 03/01/25 16:25 Dose: 10 ml Documented By: HALLIE Azithromycin 500 mg/ Sodium (Chloride) 250 mls @ 125 mls/hr IV Q24H [facility] Last Infusion: 03/01/25 18:38 Dose: Infused Documented By: HALLIE Insulin Human Lispro (Insulin Lispro 100 Unit/Ml 3 Ml Vial) 0 unit SUBCUT QIDACHS [facility]; Protocol Last Admin: 03/01/25 20:33 Dose: 8 unit Documented By: SUZANNE Levalbuterol HCl (Levalbuterol Hcl 1.25 Mg/3 Ml Vial.Neb) 1.25 mg INHALE Q4H PRN PRN Reason: Shortness of Breath/Wheezing Last Admin: 02/28/25 01:49 Dose: 1.25 mg Documented By: ROSHAN Levalbuterol HCl (Levalbuterol Hcl 1.25 Mg/3 Ml Vial.Neb) 1.25 mg INHALE RQ4H [facility] Last Admin: 03/02/25 07:57 Dose: 1.25 mg Documented By: ALEXI Loratadine (Loratadine 10 Mg Tablet) 10 mg PO DAILY [facility] Last Admin: 03/01/25 08:58 Dose: 10 mg Documented By: HALLIE Magnesium Hydroxide (Milk Of Magnesia 30 Ml Oral.Susp) 30 ml PO DAILY PRN PRN Reason: Constipation Melatonin (Melatonin 3 Mg Tablet) 6 mg PO BEDTIME PRN PRN Reason: Insomnia Methylprednisolone Sodium Succinate (Methylprednisolone Sod Succ 40 Mg/Ml Vial) 40 mg IVPUSH Q8H [facility] Last Admin: 03/02/25 02:15 Dose: 40 mg Documented By: SUZANNE Multivitamins/Vitamin C (Multivitamin Tablet) 1 tab PO DAILY [facility] Last Admin: 03/01/25 08:58 Dose: 1 tab Documented By: HALLIE Ondansetron HCl (Ondansetron Hcl 4 Mg/2 Ml Vial) 4 mg IVPUSH Q8H PRN PRN Reason: Nausea and Vomiting Last Admin: 02/28/25 01:33 Dose: 4 mg Documented By: ROSHAN Polyethylene Glycol (Polyethylene Glycol 3350 17 Gm Powd.Pack) 17 gm PO DAILY PRN PRN Reason: Constipation Sodium Chloride (0.9 % Sodium Chloride Flush 3 Ml Syringe) 3 ml IVFLUSH QSHIFT [facility] Last Admin: 03/01/25 20:36 Dose: 3 ml Documented By: SUZANNE Sumatriptan Succinate (Sumatriptan Succinate 25 Mg Tablet) 25 mg PO DAILY PRN PRN Reason: Migraine Headache Last Admin: 02/27/25 05:51 Dose: 25 mg Labs 02/27/25 06:16 02/27/25 06:16 Labs: Laboratory Results - last 24 hr 03/01/25 03/01/25 03/02/25 16:19 20:06 07:11 POC Glucose 345 H 318 H 211 H Assessment and Plan (1) Sepsis: Status: Acute Plan 29 yo female with PMH migraines without aura, nephrolithiasis nonobstructing, von Willebrand's disease unspecified, UTI/ pyelonephritis, rhabdomyolysis related to excessive exercising, fatty liver, cholecystectomy, tonsillectomy was seen at [facility] for suspected asthma attack after starting with cold-like symptoms this past Monday. 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 Patient did go to work earlier this morning but felt horrible and decided to be seen at the [facility]. Pt did receive duoneb and prednisone at the [facility] with no improvement. CXR perfomed at [facility] and noted upper/lower lobe PNA. Pt was sent to ED at [facility] for further evaluation. Patient meets criteria for sepsis upon ED arrival and being admitted for multifocal pneumonia and acute hypoxic respiratory failure. Sepsis secondary to multifocal pneumonia Blood cultures pending Acute lactic acidosis resolved with IV hydration. Patient had mild tachycardia-happens more with migraine headache. Leukocytosis resolved Hemodynamics currently stable, appropriate for admission to the medical telemetry floor antibiotics changed to levquin CTA negative for PE, noted left upper lobe home memory nodule 8 mm - follow-up may be beneficial pulm followin Acute hypoxic respiratory failure secondary to pneumonia, asthma exacerbation mild intermittent Patient continues on nasal cannula wean as tolerated, pulse ox 94% Incentive spirometer ordered Supportive care to include antitussives Patient negative for COVID, flu and RSV Continue Xopenex nebs,steriods ,taper oxygen ,added hycodan prn for cough. Hyperglycemia: new onset dm Glucose in urine greater than 1000, no ketones and anion gap is closed a1c is 6.2 willchange diet to dm fs with sliding scale coverage. Headache with history of migraine Patient improved with Tylenol and Toradol Patient denies that she is having any current migraine issues Suspected history of asthma Patient was given a rescue inhaler by her primary care community clinic sometime ago but states she has not officially diagnosed with asthma and does not take an inhaler daily Patient currently a nonsmoker and no history of childhood reactive airway disease Educated patient to request consultation with after school program teacher as an outpatient for further workup Patient currently a nonsmoker and does not vape Nephrolithiasis/ history of UTI/ history of rhabdo from exercising UA negative for hematuria or UTI Patient currently asymptomatic and states kidney stones are nonobstructive Renal function stable Obesity Patient counseled on the benefits of weight loss in regards to overall health and even lung function DVT prophylaxis: Lovenox Ongoing need of stay: Acute hypoxemic respiratory failure secondary to bilateral pneumonia-respiratory status is not optimal yet, need of oxygen, IV antibiotics, new onset dm-moniter gfs closley/sliding scale coverage. Quality Stroke Does the patient have a stroke diagnosis?: No Reason for No Anti-thrombotic by Day Two: N/A - Med Ordered VTE Prior VTE?: No VTE Risk Level:: Medical - low VTE Device Contraindication: Treatment Not Indicated VTE Drug Contraindication: N/A - Med Ordered
[2025-03-02] MEDS: 0.9 % Sodium Chloride Flush 3 ML SYRINGE IVFLUSH ×3 (09:08→21:37)
--- NOTE | 2025-03-02 09:47 | P.PNPL_ITS ---
Subjective Subjective Date of Service: 03/02/25 Interval history: The patient was seen on exam. The patient is slow to improve. She continues to require significant amount of oxygen. Her oxygen did fall off in her desaturation was very quick. When she takes a deep breath she does have some pleuritic discomfort in his difficult for her to catch her breath afterwards specially when she starts coughing. Been on the ceftriaxone and azithromycin now for several days with only partial improvement. Will go ahead and switch her antibiotics around. She continues to be on some Solu-Medrol which is okay as she has does not have significant wheezing. Objective Data Labs 02/27/25 06:16 02/27/25 06:16 Labs: Laboratory Results - last 24 hr 03/01/25 03/01/25 03/02/25 16:19 20:06 07:11 POC Glucose 345 H 318 H 211 H Microbiology Microbiology Results: Microbiology 02/26/25 16:38 Blood - Venous Blood Culture - Preliminary No growth after 48 hours. 02/26/25 16:33 Blood - Venous Blood Culture - Preliminary No growth after 48 hours. Review of Systems Constitutional: Denies body ache(s), Denies chills, Denies fever(s), Reports headache(s) and Denies malaise Eyes: Denies blurry vision Denies vertigo, Denies dizziness and Reports headache(s) Cardiovascular: Denies chest pain, Reports dyspnea and Reports dyspnea on exertion Respiratory: Reports chest congestion, Reports cough, Reports dyspnea, Reports dyspnea on exertion and Reports wheezing Gastrointestinal: Denies abdominal pain, Denies nausea and Denies vomiting Musculoskeletal: Reports back pain Skin/Breast: Denies rash Denies vertigo, Denies dizziness and Reports headache(s) Allergic/Immunologic: Reports wheezing Physical Exam 2 Vital Signs: Vital Signs: Last Vital Signs Temp 98.7 F 03/02/25 07:29 Pulse 100 03/02/25 07:57 Resp 15 03/02/25 07:57 BP 113/72 03/02/25 07:29 Pulse Ox 95 03/02/25 07:29 O2 Del Method Oxymask 03/02/25 07:29 O2 Flow Rate 5 03/02/25 07:29 BMI result Body Mass Index 35.4 Const: General: healthy appearing, comfortable, no acute distress, alert and awake Nutritional Appearance: well nourished Orientation/consciousness: p atient oriented x3 HEENT: Head: Yes normocephalic and Yes atraumatic Eyes: Eyelids: Yes eyelids normal Conjunctivae: conjunctivae normal S clerae: sclerae normal Corneas: corneas normal Pupils: Equal, round and reactive pupils present EOM: EOMs intact bilaterally Neck: Neck: Yes full ROM Resp: Effort & Inspection: normal respiratory effort and able to speak in complete sentences Auscultation: rales and diminished lung sounds Cardio: Rate: tachycardic Rhythm: regular rhythm GI: Inspection: No distended Palpation (GI): Soft to palpation, not firm, nontender, no guarding and not rigid Skin: General skin exam: elasticity normal Neuro: General: patient oriented x3 Cranial nerves: Yes Equal, round and reactive pupils present and Yes Bilaterally intact EOM present Cognition (Neuro): normal cognition Procedures Date of Service Date of Service: 03/02/25 Assessment and Plan Assessment and plan (1) Acute hypoxic respiratory failure: Status: Acute (2) Multifocal pneumonia: Status: Acute (3) Community acquired pneumonia: Status: Acute Plan Discontinue ceftriaxone and azithromycin Start Levaquin and doxycycline IV. Monitor for any tendonitis Continue low-dose Solu-Medrol for now CPT with the incentive spirometer and [employer] Out of bed to recliner CXR tomorrow Time Spent With Patient Time: Total time managing care of this patient today ____ minutes. Progress Note: Quality Stroke Does the patient have a stroke diagnosis?: No Reason for No Anti-thrombotic by Day Two: N/A - Med Ordered
[2025-03-02 11:03] LABS: Glucose, Whole Blood 315 mg/dL (60-115)
[2025-03-02 16:34] LABS: Glucose, Whole Blood 260 mg/dL (60-115)
[2025-03-02 20:01] LABS: Glucose, Whole Blood 267 mg/dL (60-115)
[2025-03-03] VITALS (10 sets, daily range): BP systolic 107–141; BP diastolic 65–90; PULSE 83–124; RESP 18–24; TEMP 36.1–37; O2SAT 92–96
[2025-03-03 07:26] LABS: Glucose, Whole Blood 213 mg/dL (60-115)
[2025-03-03] MEDS: guaiFEN/Codeine SF 200/20/10ML 10 ML LIQUID PO (07:44)
[2025-03-03] MEDS: 0.9 % Sodium Chloride Flush 3 ML SYRINGE IVFLUSH ×2 (07:45→17:11)
[2025-03-03 11:17] LABS: Glucose, Whole Blood 270 mg/dL (60-115)
--- NOTE | 2025-03-03 15:53 | HO.PM.IMPN ---
Subjective Subjective Date of Service: 03/03/25 Interval History: hypoxia Review of Systems sob and tachycardia ,hypoxic with minimal excersion. no fevers Physical Exam Exam: Exam: Appearance: Alert.? Oriented X3. cvs: [id number], [id number]. res: Air entry fair, has mild wheezing bilateral. abd: no rebound or guarding ,nt, bs present. ext pulses present , no cyanosis . neuro: axo3 , nonfocal. Vital Signs: Vital Signs: Last Vital Signs Temp 97.5 F 03/03/25 15:24 Pulse 122 H 03/03/25 15:24 Resp 20 03/03/25 15:24 BP 141/90 H 03/03/25 15:24 Pulse Ox 92 03/03/25 15:24 O2 Del Method Nasal Cannula 03/03/25 15:24 O2 Flow Rate 2 03/03/25 15:24 BMI result Body Mass Index 35.4 Objective Data Active Medications Acetaminophen (Acetaminophen 325 Mg Tablet) 975 mg PO Q6H PRN PRN Reason: Pain, Mild 1-3,fever,headache Last Admin: 03/03/25 07:44 Dose: 975 mg Documented By: HALLIE Calcium Carbonate (Calcium Carbonate 750 Mg Tab.Chew) 750 mg PO Q4H PRN PRN Reason: Heartburn Dextrose (Dextrose 50 % 25 Gm/50 Ml Syringe) 25 gm IVPUSH Q15M PRN; Protocol PRN Reason: per Hypoglycemia Standing Ord. Docusate Sodium (Docusate Sodium 100 Mg Capsule) 100 mg PO BID [facility] Last Admin: 03/03/25 07:45 Dose: 100 mg Documented By: HALLIE Enoxaparin Sodium (Enoxaparin Sodium 40 Mg/0.4 Ml Syringe) 40 mg SUBCUT Q24H [facility] Last Admin: 03/02/25 21:36 Dose: 40 mg Documented By: ABEBA Glucose (Glucose Gel 15 Gm Gel..Gram.) 15 gm PO Q15M PRN; Protocol PRN Reason: per Hypoglycemia Standing Ord. Guaifenesin (Guaifenesin 200 Mg/10 Ml 10 Ml Liquid) 10 ml PO Q4H PRN PRN Reason: Cough Last Admin: 03/01/25 08:58 Dose: 10 ml Documented By: HALLIE Guaifenesin/Codeine Phosphate (Guaifen/Codeine Sf 200/20/10ml 10 Ml Liquid) 10 ml PO Q4H PRN PRN Reason: Cough Last Admin: 03/03/25 07:44 Dose: 10 ml Documented By: HALLIE Levofloxacin (Levaquin) 750 mg in 150 mls @ 100 mls/hr IV Q24H [facility] Last Infusion: 03/03/25 14:50 Dose: Infused Documented By: HALLIE Doxycycline Hyclate 100 mg/ (Sodium Chloride) 250 mls @ 166.67 mls/hr IV Q12H [facility] Last Infusion: 03/03/25 11:09 Dose: Infused Documented By: HALLIE Insulin Human Lispro (Insulin Lispro 100 Unit/Ml 3 Ml Vial) 0 unit SUBCUT QIDACHS [facility]; Protocol Last Admin: 03/03/25 11:45 Dose: 6 unit Documented By: HALLIE Levalbuterol HCl (Levalbuterol Hcl 1.25 Mg/3 Ml Vial.Neb) 1.25 mg INHALE Q4H PRN PRN Reason: Shortness of Breath/Wheezing Last Admin: 02/28/25 01:49 Dose: 1.25 mg Documented By: ROSHAN Levalbuterol HCl (Levalbuterol Hcl 1.25 Mg/3 Ml Vial.Neb) 1.25 mg INHALE RQ4H [facility] Last Admin: 03/03/25 15:11 Dose: 1.25 mg Documented By: RONNI Loratadine (Loratadine 10 Mg Tablet) 10 mg PO DAILY [facility] Last Admin: 03/03/25 07:45 Dose: 10 mg Documented By: HALLIE Magnesium Hydroxide (Milk Of Magnesia 30 Ml Oral.Susp) 30 ml PO DAILY PRN PRN Reason: Constipation Melatonin (Melatonin 3 Mg Tablet) 6 mg PO BEDTIME PRN PRN Reason: Insomnia Methylprednisolone Sodium Succinate (Methylprednisolone Sod Succ 40 Mg/Ml Vial) 40 mg IVPUSH Q8H [facility] Last Admin: 03/03/25 07:45 Dose: 40 mg Documented By: HALLIE Multivitamins/Vitamin C (Multivitamin Tablet) 1 tab PO DAILY [facility] Last Admin: 03/03/25 07:45 Dose: 1 tab Documented By: HALLIE Ondansetron HCl (Ondansetron Hcl 4 Mg/2 Ml Vial) 4 mg IVPUSH Q8H PRN PRN Reason: Nausea and Vomiting Last Admin: 02/28/25 01:33 Dose: 4 mg Documented By: ROSHAN Polyethylene Glycol (Polyethylene Glycol 3350 17 Gm Powd.Pack) 17 gm PO DAILY PRN PRN Reason: Constipation Senna (Sennosides 8.6 Mg Tablet) 17.2 mg PO DAILY PRN PRN Reason: Constipation Sodium Chloride (0.9 % Sodium Chloride Flush 3 Ml Syringe) 3 ml IVFLUSH QSHIFT [facility] Last Admin: 03/03/25 07:45 Dose: 3 ml Documented By: HALLIE Sumatriptan Succinate (Sumatriptan Succinate 25 Mg Tablet) 25 mg PO DAILY PRN PRN Reason: Migraine Headache Last Admin: 02/27/25 05:51 Dose: 25 mg Labs 02/27/25 06:16 02/27/25 06:16 Labs: Laboratory Results - last 24 hr 03/02/25 03/02/25 03/03/25 16:21 19:53 07:16 POC Glucose 260 H 267 H 213 H 03/03/25 11:11 POC Glucose 270 H Assessment and Plan (1) Sepsis: Status: Acute Plan 29 yo female with PMH migraines without aura, nephrolithiasis nonobstructing, von Willebrand's disease unspecified, UTI/ pyelonephritis, rhabdomyolysis related to excessive exercising, fatty liver, cholecystectomy, tonsillectomy was seen at [facility] for suspected asthma attack after starting with cold-like symptoms this past Monday. 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 Patient did go to work earlier this morning but felt horrible and decided to be seen at the [facility]. Pt did receive duoneb and prednisone at the [facility] with no improvement. CXR perfomed at [facility] and noted upper/lower lobe PNA. Pt was sent to ED at [facility] [place] [place] for further evaluation. Patient meets criteria for sepsis upon ED arrival and being admitted for multifocal pneumonia and acute hypoxic respiratory failure. Sepsis secondary to multifocal pneumonia-M.pneumoniae. Blood cultures @48hrs negative Acute lactic acidosis resolved with IV hydration. Patient had mild tachycardia-happens more with migraine headache. Leukocytosis resolved Hemodynamics currently stable, appropriate for admission to the medical telemetry floor antibiotics changed to levquin CTA negative for PE, noted left upper lobe home memory nodule 8 mm - follow-up may be beneficial cxr -similar penumonia ,mild pleural effusions pulm followin Acute hypoxic respiratory failure secondary to pneumonia, asthma exacerbation mild intermittent Patient continues on nasal cannula wean as tolerated, pulse ox 94% Incentive spirometer ordered Supportive care to include antitussives Patient negative for COVID, flu and RSV Continue Xopenex nebs,steriods ,taper oxygen ,added hycodan prn for cough. Hyperglycemia: new onset dm Glucose in urine greater than 1000, no ketones and anion gap is closed a1c is 6.2 willchange diet to dm fs with sliding scale coverage. Headache with history of migraine Patient improved with Tylenol and Toradol Patient denies that she is having any current migraine issues Suspected history of asthma Patient was given a rescue inhaler by her primary care community clinic sometime ago but states she has not officially diagnosed with asthma and does not take an inhaler daily Patient currently a nonsmoker and no history of childhood reactive airway disease Educated patient to request consultation with communications field technician as an outpatient for further workup Patient currently a nonsmoker and does not vape Nephrolithiasis/ history of UTI/ history of rhabdo from exercising UA negative for hematuria or UTI Patient currently asymptomatic and states kidney stones are nonobstructive Renal function stable Obesity Patient counseled on the benefits of weight loss in regards to overall health and even lung function DVT prophylaxis: Lovenox Ongoing need of stay: Acute hypoxemic respiratory failure secondary to bilateral pneumonia-respiratory status is not optimal yet, need of oxygen, IV antibiotics, new onset dm-moniter gfs closley/sliding scale coverage. Quality Stroke Does the patient have a stroke diagnosis?: No Reason for No Anti-thrombotic by Day Two: N/A - Med Ordered VTE Prior VTE?: No VTE Risk Level:: Medical - low VTE Device Contraindication: Treatment Not Indicated VTE Drug Contraindication: N/A - Med Ordered
[2025-03-03 16:27] LABS: Glucose, Whole Blood 210 mg/dL (60-115)
--- NOTE | 2025-03-03 16:44 | MHC.CM.PN ---
PER MD ROUNDS, PT STILL HYPOXIC, NO PLAN TO DC DCP: HOME VIA PRIVATE TRANSPORT
[2025-03-03] MEDS: guaiFENesin 200 MG/10 ML 10 ML LIQUID PO (17:16)
[2025-03-03 20:44] LABS: Glucose, Whole Blood 251 mg/dL (60-115)
[2025-03-04] VITALS (9 sets, daily range): BP systolic 111–138; BP diastolic 64–88; PULSE 81–123; RESP 18–20; TEMP 36.2–37.1; O2SAT 93–98
[2025-03-04] MEDS: 0.9 % Sodium Chloride Flush 3 ML SYRINGE IVFLUSH ×4 (00:55→20:56)
[2025-03-04 07:28] LABS: Glucose, Whole Blood 225 mg/dL (60-115)
--- NOTE | 2025-03-04 07:42 | P.PNIM_ITS ---
Subjective Subjective Date of Service: 03/04/25 Interval History: Mycoplasma pneumonia Review of Systems Still short of breath with exertion, has tachycardia with ambulation Sats also fluctuate from 87-89 range with a ambulation but recovers with short rest. Review of Systems: Yes all other systems are reviewed and are negative Physical Exam 2 Exam: Exam: Appearance: Alert.? Oriented X3. cvs: rrr, [id number]. res: Air entry fair, has mild wheezing bilateral. abd: no rebound or guarding ,nt, bs present. ext pulses present , no cyanosis . neuro: axo3 , nonfocal. Vital Signs: Vital Signs: Last Vital Signs Temp 98.0 F 03/04/25 07:23 Pulse 95 03/04/25 07:40 Resp 18 03/04/25 07:40 BP 117/71 03/04/25 07:23 Pulse Ox 96 03/04/25 07:23 O2 Del Method Nasal Cannula 03/04/25 07:23 O2 Flow Rate 2 03/04/25 07:23 BMI result Body Mass Index 35.4 Objective Data Active Medications Acetaminophen (Acetaminophen 325 Mg Tablet) 975 mg PO Q6H PRN PRN Reason: Pain, Mild 1-3,fever,headache Last Admin: 03/03/25 07:44 Dose: 975 mg Documented By: HALLIE Calcium Carbonate (Calcium Carbonate 750 Mg Tab.Chew) 750 mg PO Q4H PRN PRN Reason: Heartburn Dextrose (Dextrose 50 % 25 Gm/50 Ml Syringe) 25 gm IVPUSH Q15M PRN; Protocol PRN Reason: per Hypoglycemia Standing Ord. Docusate Sodium (Docusate Sodium 100 Mg Capsule) 100 mg PO BID [facility] Last Admin: 03/03/25 20:57 Dose: 100 mg Documented By: FRANCESCA Enoxaparin Sodium (Enoxaparin Sodium 40 Mg/0.4 Ml Syringe) 40 mg SUBCUT Q24H [facility] Last Admin: 03/03/25 20:57 Dose: 40 mg Documented By: FRANCESCA Glucose (Glucose Gel 15 Gm Gel..Gram.) 15 gm PO Q15M PRN; Protocol PRN Reason: per Hypoglycemia Standing Ord. Guaifenesin (Guaifenesin 200 Mg/10 Ml 10 Ml Liquid) 10 ml PO Q4H PRN PRN Reason: Cough Last Admin: 03/03/25 17:16 Dose: 10 ml Documented By: HALLIE Guaifenesin/Codeine Phosphate (Guaifen/Codeine Sf 200/20/10ml 10 Ml Liquid) 10 ml PO Q4H PRN PRN Reason: Cough Last Admin: 03/03/25 07:44 Dose: 10 ml Documented By: HALLIE Levofloxacin (Levaquin) 750 mg in 150 mls @ 100 mls/hr IV Q24H [facility] Last Infusion: 03/03/25 14:50 Dose: Infused Documented By: HALLIE Doxycycline Hyclate 100 mg/ (Sodium Chloride) 250 mls @ 166.67 mls/hr IV Q12H [facility] Last Infusion: 03/04/25 00:31 Dose: Infused Documented By: FRANCESCA Insulin Human Lispro (Insulin Lispro 100 Unit/Ml 3 Ml Vial) 0 unit SUBCUT QIDACHS [facility]; Protocol Last Admin: 03/03/25 20:57 Dose: 6 unit Documented By: FRANCESCA Levalbuterol HCl (Levalbuterol Hcl 1.25 Mg/3 Ml Vial.Neb) 1.25 mg INHALE Q4H PRN PRN Reason: Shortness of Breath/Wheezing Last Admin: 02/28/25 01:49 Dose: 1.25 mg Documented By: ROSHAN Levalbuterol HCl (Levalbuterol Hcl 1.25 Mg/3 Ml Vial.Neb) 1.25 mg INHALE RQ4H [facility] Last Admin: 03/04/25 07:38 Dose: 1.25 mg Documented By: RONNI Loratadine (Loratadine 10 Mg Tablet) 10 mg PO DAILY [facility] Last Admin: 03/03/25 07:45 Dose: 10 mg Documented By: HALLIE Magnesium Hydroxide (Milk Of Magnesia 30 Ml Oral.Susp) 30 ml PO DAILY PRN PRN Reason: Constipation Melatonin (Melatonin 3 Mg Tablet) 6 mg PO BEDTIME PRN PRN Reason: Insomnia Methylprednisolone Sodium Succinate (Methylprednisolone Sod Succ 40 Mg/Ml Vial) 40 mg IVPUSH Q8H [facility] Last Admin: 03/04/25 00:55 Dose: 40 mg Documented By: FRANCESCA Multivitamins/Vitamin C (Multivitamin Tablet) 1 tab PO DAILY [facility] Last Admin: 03/03/25 07:45 Dose: 1 tab Documented By: HALLIE Ondansetron HCl (Ondansetron Hcl 4 Mg/2 Ml Vial) 4 mg IVPUSH Q8H PRN PRN Reason: Nausea and Vomiting Last Admin: 02/28/25 01:33 Dose: 4 mg Documented By: ROSHAN Polyethylene Glycol (Polyethylene Glycol 3350 17 Gm Powd.Pack) 17 gm PO DAILY PRN PRN Reason: Constipation Senna (Sennosides 8.6 Mg Tablet) 17.2 mg PO DAILY PRN PRN Reason: Constipation Sodium Chloride (0.9 % Sodium Chloride Flush 3 Ml Syringe) 3 ml IVFLUSH QSHIFT [facility] Last Admin: 03/04/25 00:55 Dose: 3 ml Documented By: FRANCESCA Sumatriptan Succinate (Sumatriptan Succinate 25 Mg Tablet) 25 mg PO DAILY PRN PRN Reason: Migraine Headache Last Admin: 02/27/25 05:51 Dose: 25 mg Labs 02/27/25 06:16 02/27/25 06:16 Labs: Laboratory Results - last 24 hr 03/03/25 03/03/25 03/03/25 11:11 16:23 20:33 POC Glucose 270 H 210 H 251 H 03/04/25 07:24 POC Glucose 225 H Microbiology Microbiology Results: Microbiology 02/26/25 16:38 Blood Culture - Final Blood - Venous No growth after 5 days. 02/26/25 16:33 Blood Culture - Final Blood - Venous No growth after 5 days. Assessment and Plan (1) Sepsis: Status: Acute Plan 29 yo female with PMH migraines without aura, nephrolithiasis nonobstructing, von Willebrand's disease unspecified, UTI/ pyelonephritis, rhabdomyolysis related to excessive exercising, fatty liver, cholecystectomy, tonsillectomy was seen at [facility] for suspected asthma attack after starting with cold-like symptoms this past Monday. 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 Patient did go to work earlier this morning but felt horrible and decided to be seen at the [facility]. Pt did receive duoneb and prednisone at the [facility] with no improvement. CXR perfomed at [facility] and noted upper/lower lobe PNA. Pt was sent to ED at [facility] for further evaluation. Patient meets criteria for sepsis upon ED arrival and being admitted for multifocal pneumonia and acute hypoxic respiratory failure. Sepsis secondary to multifocal pneumonia-M.pneumoniae. Blood cultures @48hrs negative Acute lactic acidosis resolved with IV hydration. Leukocytosis resolved Hemodynamics currently stable, appropriate for admission to the medical telemetry floor antibiotics changed to levquin CTA negative for PE, noted left upper lobe home memory nodule 8 mm - follow-up may be beneficial cxr -similar penumonia ,mild pleural effusions pulm following -d/w continue levaquin for 5 ays. Acute hypoxic respiratory failure secondary to pneumonia, asthma exacerbation mild intermittent Patient continues on nasal cannula wean as tolerated, pulse ox 94% Incentive spirometer ordered Supportive care to include antitussives Patient negative for COVID, flu and RSV Continue Xopenex nebs,steriods ,off oxygen ,added hycodan prn for cough. Hyperglycemia: new onset dm Glucose in urine greater than 1000, no ketones and anion gap is closed a1c is 6.2 willchange diet to dm fs with sliding scale coverage. Headache with history of migraine Patient improved with Tylenol and Toradol Patient denies that she is having any current migraine issues Suspected history of asthma Patient was given a rescue inhaler by her primary care community clinic sometime ago but states she has not officially diagnosed with asthma and does not take an inhaler daily Patient currently a nonsmoker and no history of childhood reactive airway disease Educated patient to request consultation with public health outreach worker as an outpatient for further workup Patient currently a nonsmoker and does not vape Nephrolithiasis/ history of UTI/ history of rhabdo from exercising UA negative for hematuria or UTI Patient currently asymptomatic and states kidney stones are nonobstructive Renal function stable Obesity Patient counseled on the benefits of weight loss in regards to overall health and even lung function DVT prophylaxis: Lovenox Ongoing need of stay: Acute hypoxemic respiratory failure secondary to bilateral pneumonia-respiratory status is not optimal yet,taper off oxygen, IV antibiotics, new onset dm-moniter gfs closley/sliding scale coverage. Quality Stroke Does the patient have a stroke diagnosis?: No Reason for No Anti-thrombotic by Day Two: N/A - Med Ordered VTE Prior VTE?: No VTE Risk Level:: Medical - low VTE Device Contraindication: Treatment Not Indicated VTE Drug Contraindication: N/A - Med Ordered
--- NOTE | 2025-03-04 07:52 | PC.NURSE ---
Late Entry: Sepsis vitals obtained 02/26/25 @ 1922: 119/81, 104 HR, 24RR 02/26/25 @ 1937: 127/89, 103 HR, 23 RR
[2025-03-04] MEDS: guaiFENesin 200 MG/10 ML 10 ML LIQUID PO (08:05)
[2025-03-04 11:53] LABS: Glucose, Whole Blood 275 mg/dL (60-115)
[2025-03-04 16:20] LABS: Glucose, Whole Blood 182 mg/dL (60-115)
[2025-03-04 18:13] LABS: Strep Pneumo Ag urine Not Detected (Not Detected)
[2025-03-04 20:47] LABS: Glucose, Whole Blood 345 mg/dL (60-115)
[2025-03-05 03:46] VITALS: BP 104/59; PULSE 82; RESP 16; TEMP 36.5; O2SAT 93
[2025-03-05 03:52] LABS: Glucose, Whole Blood 265 mg/dL (60-115)
[2025-03-05 07:26] LABS: Glucose, Whole Blood 324 mg/dL (60-115)
[2025-03-05 07:37] VITALS: PULSE 80; RESP 16; O2SAT 95
[2025-03-05 08:00] VITALS: BP 120/71; PULSE 89; RESP 17; TEMP 36.7; O2SAT 96
[2025-03-05] MEDS: 0.9 % Sodium Chloride Flush 3 ML SYRINGE IVFLUSH (08:29)
--- NOTE | 2025-03-05 11:20 | PM.DS ---
DS: Providers Provider Date of Service: 03/05/25 Date of admission: 02/26/25 19:26 Date of discharge: 03/05/25 Primary care physician: Soniya Colon MD Consults: 02/28/25 08:07 Consult to Pulmonology Routine Consulting Provider: [facility] Reason for consultation: acute hypoxemic respiratory failure sec to pneumonia (mycoplasma pneumonia) DS: Diagnosis Discharge Diagnosis (1) Sepsis: Status: Acute DS: Summary Hospital Course Hospital Course: from initial hpi: 29 yo female with PMH migraines without aura, nephrolithiasis nonobstructing, von Willebrand's disease unspecified, UTI/ pyelonephritis, rhabdomyolysis related to excessive exercising, fatty liver, cholecystectomy, tonsillectomy was seen at [facility] for suspected asthma attack after starting with cold-like symptoms this past Monday. 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 Patient did go to work earlier this morning but felt horrible and decided to be seen at the [facility]. Pt did receive duoneb and prednisone at the [facility] with no improvement. CXR perfomed at [facility] and noted upper/lower lobe PNA. Pt was sent to ED at [facility] for further evaluation. Workup in the ED included CT of the chest which noted left upper and lower lobe multifocal pneumonia. In addition there is a nodular density 8 mm located in the left anterior upper lobe. Patient did meet the criteria for sepsis with elevated lactic acid, tachycardia, tachypnea and hypoxia. EKG negative for any ischemic changes. Troponin 52.2, then 34.7 likely from demand. Patient is not complaining of chest pain at this time. Patient is started on azithromycin and ceftriaxone and duo nebs with some improvement and received IV resuscitation 30 mL/kilogram in the ED. Patient does have leukocytosis but no left shift. Lactic acid originally 4.0 now 2.1 likely related to sepsis and exposure to albuterol. Blood cultures pending. UA requested. D-dimer within normal limits no evidence of PE. Patient is not currently on control. Patient also complaining of headache and received Tylenol p.o. and Toradol IV x1 with good effect. Patient denies experiencing a migraine headache at this time. COVID/RSV/flu testing pending. Patient is seen with family at the bedside all questions and concerns were addressed. Patient states she has not been diagnosed with asthma but was given a rescue inhaler in the past from her PCP. Educated patient that she could benefit from Pulmonary consultation for formal diagnosis. Patient denies history of smoking, vaping, alcohol use, marijuana use or illicit drug use. hospital course: Patient was admitted for sepsis and acute hypoxic respiratory failure secondary to mycoplasma pneumonia complicated by mild intermittent asthma with acute decompensation. She was treated with levofloxacin, high-dose steroids, DuoNebs. Patient had prolonged hospitalization due to persistent shortness of breath on exertion and hypoxia. Eventually was able to be weaned off oxygen and symptoms improved. On discharge we will continue 5 more days of levofloxacin but will avoid further steroids at this time. Patient was noted to have hyperglycemia triggered by steroids during hospitalization. A1c was 6.2 consistent with prediabetes. On discharge patient is recommended to pursue lifestyle modifications and to monitor glucose intolerance with primary care physician. For obesity weight loss recommended. Patient is feeling better and will be discharged home. Time Attestation Discharge Coordination Time (in mins): 33 Quality: Safe Use of Opioids Does Pt have an Active Cancer Diagnosis on the Problem List?: No Quality: Stroke Does the patient have a stroke diagnosis?: No Physical Exam Exam: Exam: General: AO X 3, no acute distress Resp: CTA bilateral, no accessory muscles used CVS: S1,S2,RRR GI: soft, non tender, non distended Neuro: motor grossly intact, alert Psych: appropriate affect, appropriate insight Vital Signs: Vital Signs: Last Vital Signs Temp 98.1 F 03/05/25 08:00 Pulse 89 03/05/25 08:00 Resp 17 03/05/25 08:00 BP 120/71 03/05/25 08:00 Pulse Ox 96 03/05/25 08:00 O2 Del Method Room Air 03/05/25 08:00 O2 Flow Rate 2 03/04/25 07:23 BMI result Body Mass Index 35.4 DS: Data Data Completed and Pending Labs on day of discharge: Laboratory Results - last 24 hr 02/28/25 03/04/25 03/04/25 15:17 11:49 16:16 POC Glucose 275 H 182 H Ur Strep pneumoniae Ag Not Detected 03/04/25 03/05/25 03/05/25 20:41 03:48 07:21 POC Glucose 345 H 265 H 324 H Ur Strep pneumoniae Ag Discharge Plan Discharge Anticipated Discharge Date/Time: 03/04/25 14:18 Patient Disposition: Home, Self-Care Discharge Diagnosis: mycoplasma pneumonia Referrals: Soniya Colon MD [Primary Care Provider, Internal Medicine] - 1 Week Discharge Medications: New levofloxacin 750 mg Tablet 750 mg PO Q24H 5 Days Qty: 5 0RF Continued multivitamin Tablet 1 tab PO DAILY Discharge Orders: Discharge Order (Routine); Ordered 03/05/25 Ordered By: Vamshi Paulino Diet: Advance to usual diet Activity on Discharge: As tolerated Stand Alone Forms: Patient Portal Discharge page Print Language: Slovak Care Plan Goals: improve glucose intolerance treat pneumonia Health Concerns: preDM mycoplasma pneumonia Plan of Treatment: 5 more days levaquin weight loss, lifestyle modification monitor glucose intolerance Assessment: see above
[2025-03-05 11:21] LABS: Glucose, Whole Blood 314 mg/dL (60-115)
--- NOTE | 2025-03-05 11:28 | MHC.CM.PN ---
PT IS MEDICALLY CLEARED FOR DISCHARGE HOME SELF-CARE, PTS PARENTS WILL TRANSPORT HER HOME TODAY.
[2025-03-05 11:56] VITALS: BP 108/65; PULSE 106; RESP 18; TEMP 36.7; O2SAT 94
== END 2025-03-05 13:40 | disposition home or self-care (01) | DRG 720 ==
LOC: HO.ED 17:24 → HO.EDOVER 19:38 → HO.IMC 02-27 15:31
PROVIDERS: Hospitalist; Internal Medicine; Physician Assistant; Physician Assistant Medical; Admitting Provider Nurse Practitioner Family; Emergency Provider Student in an Organized Health Care Education/Training Program; PCP General Practice; Visit Provider Internal Medicine
DX: A41.9 Sepsis, unspecified organism (principal); J96.01 Acute respiratory failure with hypoxia; E87.21 Acute metabolic acidosis; J45.21 Mild intermittent asthma with (acute) exacerbation; J15.7 Pneumonia due to Mycoplasma pneumoniae; R73.03 Prediabetes; R51.9 Headache, unspecified; N20.0 Calculus of kidney; Z87.440 Personal history of urinary (tract) infections; Z20.822 Contact with and (suspected) exposure to COVID-19; Z79.899 Other long term (current) drug therapy
CPT/HCPCS: 36415; 71045; 71046; 71275; 80048; 80076; 81001; 82784; 82785; 82947; 83036; 83605; 83735; 84443; 84484; 84702; 85025; 85027; 85379; 85652; 87040; 87389; 87449; 87633; 87637; 87899; 93005; 99285; J0456; J0696; J1271; J1650; J1885; J1956; J2405; J2919; J7120; Q9967

== ENCOUNTER → 2025-02-26 13:40 | Outpatient (BNV) | payer BC, SELFPAY | PROVIDERS: Emergency Provider Student in an Organized Health Care Education/Training Program; PCP General Practice; Visit Provider Internal Medicine | DX: R00.0 Tachycardia, unspecified (principal) | CPT/HCPCS: 93010 ==

== ENCOUNTER 2025-02-26 19:26 | Outpatient (BNV) | payer BC, SELFPAY | END 2025-03-03 08:55 | PROVIDERS: Admitting Provider Nurse Practitioner Family; Emergency Provider Student in an Organized Health Care Education/Training Program; PCP General Practice; Visit Provider Radiology Diagnostic Radiology | DX: J18.9 Pneumonia, unspecified organism (principal) | CPT/HCPCS: 71046 ==

== ENCOUNTER 2025-02-26 19:26 | Outpatient (BNV) | payer BC, SELFPAY | END 2025-02-28 02:20 | PROVIDERS: Admitting Provider Nurse Practitioner Family; Emergency Provider Student in an Organized Health Care Education/Training Program; PCP General Practice; Visit Provider Radiology Diagnostic Radiology | DX: R91.8 Other nonspecific abnormal finding of lung field (principal) | CPT/HCPCS: 71045 ==

== ENCOUNTER 2025-02-26 19:26 | Outpatient (BNV) | payer BC, SELFPAY | END 2025-02-27 17:24 | PROVIDERS: Admitting Provider Nurse Practitioner Family; Emergency Provider Student in an Organized Health Care Education/Training Program; PCP General Practice; Visit Provider Internal Medicine | DX: R00.0 Tachycardia, unspecified (principal) | CPT/HCPCS: 93010 ==

== ENCOUNTER → 2025-02-26 19:26 | Outpatient (BNV) | payer BC, SELFPAY | PROVIDERS: Admitting Provider Nurse Practitioner Family; Emergency Provider Student in an Organized Health Care Education/Training Program; PCP General Practice; Visit Provider Hospitalist | DX: J96.01 Acute respiratory failure with hypoxia (principal); J18.8 Other pneumonia, unspecified organism; J18.9 Pneumonia, unspecified organism | CPT/HCPCS: 99233 ==

== ENCOUNTER → 2025-02-26 19:26 | Outpatient (BNV) | payer BC, SELFPAY | PROVIDERS: Admitting Provider Nurse Practitioner Family; Emergency Provider Student in an Organized Health Care Education/Training Program; PCP General Practice; Visit Provider Nurse Practitioner Family | DX: A41.9 Sepsis, unspecified organism (principal) | CPT/HCPCS: 99231; 99232; 99239 ==

== ENCOUNTER 2025-03-24 15:41 | Outpatient (REF) | payer BC, SELFPAY ==
--- NOTE | ~2025-03-24 | XR_ITS ---
EXAMINATION: XR CHEST CLINICAL INFORMATION: recent mycoplasma PNA COMPARISON: March 03, 2025 TECHNIQUE: PA and lateral views FINDINGS: No hyperinflation. No consolidation, pleural effusion or pneumothorax. Cardiac mediastinal silhouette size is normal. Osseous structures are intact. Vascular clips upper abdomen not seen on the frontal projection. XR/XR chest 2V IMPRESSION: No acute airspace disease. Resolved multifocal pneumonia. Electronically signed by: Angel Bui MD 03/24/2025 03:57 PM EDT
--- OUTSIDE RECORDS SUMMARY | 2025-03-24 14:45 | XMS_ITS | Encounter Summary ---
Author Organization [employer] Address [address] [place] [address] 7 [place] [address] Care Team Providers Care Vein Pumper Name Role Phone Soniya Colon MD Primary Care Provider [phone] Reason for Visit * Reason Comments HDF Encounter Details Date Type Department Care Team ([facility] st Contact Info) Description 03/24/2025 2:45 PM EDT Office Visit [facility] [address] [place] [address] Soniya Colon MD [address] [place] [address] History of mycoplasma pneumonia (Primary Dx); Prediabetes Social History Tobacco Use Types Packs/Day Years Used Date Smoking Tobacco: Never Passive Smoke Exposure: Never Smokeless Tobacco: Never Alcohol Use Standard Drinks/Week Comments Not Currently 0 (1 standard drink = 0.6 oz pur e alcohol) Depression Answer Date Recorded Patient Health Questionnaire-9 Score 10 03/24/2025 Patient Health Questionnaire-9 Score 10 03/24/2025 Last PHQ-9: Questionnaire Data Not on file [...] Answer Date Recorded Patient Health Questionnaire-2 Score 2 03/24/2025 Internet Access Answer Date Recorded Internet Access [...] Reading Time Taken Comments Blood Pressure 120/80 03/24/2025 3:21 PM EDT Pulse 90 03/24/2025 3:21 PM EDT Temperature 36.7 C (98.1 F) 03/24/2025 3:21 PM EDT Respiratory Rate 20 03/24/2025 3:21 PM EDT Oxygen Saturation 98% 03/24/2025 3:21 PM EDT Inhaled Oxygen Concentration - - Weight 84.5 kg (186 lb 3.2 oz) 03/24/2025 3:21 P M EDT Height 157.5 cm (5' 2 ) 03/24/2025 3:21 PM EDT Body Mass Index 34.06 03/24/2025 3:21 PM EDT documented in this encounter Functional Status * Over the past 2 weeks, how often have you been bothered by any of the following problems? Question Answer Date of Assessment Author Patient Health Questionnaire -2 Score 2 03/24/2025 3:23 PM EDT Honey Mayen MA * Little interest or pleasure in doing things Answer Date of Assessment Author Several days 03/24/2025 3:23 PM EDT Honey Mayen MA * Feeling down, depressed, or hopeless Answer Date of Assessment Author Several days 03/24/2025 3:23 PM EDT Honey Mayen MA * Trouble falling or staying asleep, or sleeping too much Answer Date of Assessment Author More than half the days 03/24/2025 3:23 PM EDT V Honey rutledge MA * Feeling tired or having little energy Answer Date of Assessment Author More than half the days 03/24/2025 3:23 PM EDT Honey Wood MA * Poor appetite or overeating Answer Date of Assessment Author More than half the days 03/24/2025 3:23 PM EDT V Honey rutledge MA * Feeling bad about yourself - or that you are a failure or have let yourself or your family down Answer Date of Assessment Author Not at all 03/24/2025 3:23 PM EDT Honey Mayen MA * Trouble concentrating on things, such as reading the newspaper or watching television Answer Date of Assessment Author More than half the days 03/24/2025 3:23 PM EDT V Honey rultedge MA * Moving or speaking so slowly that other people could have noticed? Or the opposite - being so fidgety or restless that you have been moving around a lot more than usual. Answer Date of Assessment Author Not at all 03/24/2025 3:23 PM EDT Honey Mayen MA * Thoughts that you would be better off or hurting yourself in some way Answer Date of Assessment Author Not at all 03/24/2025 3:23 PM EDT Honey Mayen MA * Patient Health Questionnaire-9 Score Answer Date of Assessment Author 10 03/24/2025 3:23 PM EDT Honey Mayen MA * How difficult have these problems made it for you to do your work, take care of things at home, or get along with other people? Answer Date of Assessment Author Somewhat difficult 03/24/2025 3:23 PM EDT Honey Messina MA * Over the last 2 weeks, how often have you been bothered by any of the following problems? Question Answer Date of Assessment Author Feeling nervous, anxious, or on edge 1 03/24/2025 3:24 PM EDT Honey Mayen MA Not being able to stop or co ntrol worrying 1 03/24/2025 3:24 PM EDT Honey Mayen MA Worrying too much about diff erent things 1 03/24/2025 3:24 PM EDT Honey Mayen MA Trouble relaxing 1 03/24/2025 3:24 PM EDT Honey Wood MA Being so restless that it is hard to sit still 1 03/24/2025 3:24 PM EDT Honey Mayen MA Becoming easily annoyed or irritable 1 03/24/2025 3:24 PM EDT Honey Mayen MA Feeling afraid as if somethi ng awful might happen 1 03/24/2025 3:24 PM EDT Honey Mayen MA RACHAEL-7 Total Score 7 03/24/2025 3:24 PM EDT Honey Mayen MA documented as of this encounter Plan of Treatment Upcoming Encounters Date Type Department Care Team (Late st Contact Info) Description 05/14/2025 4:00 PM EST Office Visit [facility] [address] [place] [address] Soniya Colon MD [address] [place] [address] 07/02/2025 3:30 PM EST Office Visit [facility] [address] [place] [address] Katelyn Borjas, OD [address] [place] [address] documented as of this encounter Procedures Procedure Name Priority Date/Time Associated Diagnosis Comments POCT GLYCATED HEMOGLOBIN, TOTAL Routine 03/24/2025 3:56 PM EDT Prediabetes XR CHEST 2 VIEWS Routine 03/24/2025 3:54 PM EDT History of mycoplasma pneumonia POCT GLUCOSE Routine 03/24/2025 3:22 PM EDT Prediabetes documented in this encounter Results * (ABNORMAL) POCT Hgb A1c (03/24/2025 3:56 PM EDT) Hemoglobin A1C 6.5(A) 4.0 - 5.7 % QC Media Lot # [id number] Lot# Expiration Date Blood 03/24/2025 3:56 PM EDT Soniya Colon MD POINT OF CARE TEST ENTER/EDIT ORDERABLES Final Result * XR Chest 2 Views (03/24/2025 3:54 PM EDT) Anatomical Region Laterality Modality Chest Radiographic [place] ging 03/24/2025 3:54 PM EDT Narrative 03/24/2025 4:00 PM EDT [address] [address] XRay Report Signed Patient: Cande Hernandez MR#: [id number] : 1995 Acct:[id number] Age/Sex: 29 / F ADM Date: 03/24/25 Loc: HO.HHCX Attending Dr: Soniya Colon MD Ordering Physician: Soniya Colon Date of Service: 03/24/25 Procedure(s): XR chest 2V Accession Number(s): [id number] cc: Soniya Colon Reason for Exam: recent mycoplasma PNA EXAMINATION: XR CHEST CLINICAL INFORMATION: recent mycoplasma PNA COMPARISON: March 03, 2025 TECHNIQUE: PA and lateral views FINDINGS: No hyperinflation. No consolidation, pleural effusion or pneumothorax. Cardiac mediastinal silhouette size is normal. Osseous structures are intact. Vascular clips upper abdomen not seen on the frontal projection. XR/XR chest 2V IMPRESSION: No acute airspace disease. Resolved multifocal pneumonia. Electronically signed by: Angel Bui MD 03/24/2025 03:57 PM EDT RP Dictated By: Angel Segal MD Signed By: <Electronically signed by Angel Ford MD in OV> 03/24/251556 DD/ 155 TD/TT: 03/24/251553 Technical Consultant: Procedure Note Donotuseinterpreter, Image - 03/24/[address] [address] XRay Report Signed Patient: Cande Hernandez KMR#: [id number] : 1995Acct:[id number] Age/Sex: 29 FADM Date: 03/24/25 Loc: .HHCX Attending Dr: Soniya Colon MD Ordering Physician: Soniya Colon Date of Service: 03/24/25 Procedure(s): XR chest 2V Accession Number(s): [id number] cc: Soniya Colon Reason for Exam: recent mycoplasma PNA EXAMINATION: XR CHEST CLINICAL INFORMATION: recent mycoplasma PNA COMPARISON: March 03, 2025 TECHNIQUE: PA and lateral views FINDINGS: No hyperinflation. No consolidation, pleural effusion or pneumothorax. Cardiac mediastinal silhouette size is normal. Osseous structures are intact. Vascular clips upper abdomen not seen on the frontal projection. XR/XR chest 2V IMPRESSION: No acute airspace disease. Resolved multifocal pneumonia. Electronically signed by: Angel Bui MD 03/24/2025 03:57 PM EDT RP Dictated By: Angel Segal MD Signed By: <Electronically signed by Angel Ford MDin OV> 03/24/25 155 DD/ 155 TD/TT: 03/24/251553 Technical Consultant: Soniya Colon MD IMG XR PROCEDURES Final Result * POCT Glucose (03/24/2025 3:22 PM EDT) Glucose Blood, POC 115 60 - 200 mg/dL QC Media Lot # [id number] Lot# Expiration Date Blood Capillary blood specimen / Unknown 03/24/2025 3:22 PM EDT Soniya Colon MD POINT OF CARE TEST ENTER/EDIT ORDERABLES Final Result documented in this encounter Visit Diagnoses Diagnosis History of mycoplasma pneumonia- Primary Prediabetes Other abnormal glucose documented in this encounter Additional Health Concerns Assessment Noted Time PHQ-9 Depression Total Score: 10 025 3:23 PM EDT documented as of this encounter Care Teams Vein Pumper Relationship Specialty Start Date End Date Soniya Colon MD [address] [place] [address] PCP - General Family Medicine 01/19/21 documented as of this encounter
--- OUTSIDE RECORDS SUMMARY | 2025-03-24 18:44 | XMS_ITS | Data Portability ---
Author Organization [place] [facility], Allergy Address [address] [address] Care Team Providers Care Deputy Director Of Finance Name Role Phone MAGY MANUEL Primary Care Provider [phone] Assessment Encounter Date Assessment Date Assessment LastModified [...] Details Recorded Time Abnormal auditory percepti on 36252927 Active 2022 Other abnormal auditory percepti ons, bilatera l; Note: Date Diagnose d: 3 3:37 PM (H93.293 ) Not Available [facility] 4 02:45:42 Infectiv e otitis externa of bilatera l ears 15932960836 09166 Completed 202212/29/2023 Other infectiv e otitis externa, bilatera l; Note: Date Diagnose d: 3 2:50 PM (H60.393 ) Not Available [facility] 4 02:45:39 Acute sinusiti s 99376972 Active 2024 ARSEN GOODMAN PA-C [address] [place] [address],[facility], [place], [address] , [facility] - [facility] 5 15:47:08 Problem Notes None recorded. Medical Equipment None Reported. Allergies Allergen ID Allergen Name Allergen Category Reaction Reaction Severity Criticality Documentation Date Start Date Code Code System Note Provider Name and Address Organization Details Recorded Time 085742 Bactrim medicatio n Not available Not available Not available 10/10/2023 12787 9 RxNorm React ion: Lip swell ing; Not Available [facility] 4 01:08:18 152060 terbinafi ne medicatio n facial swelling Not available Not available 10/10/2023 08178 RxNorm React ion: Facia l swell ing; Not Available [facility] 4 01:08:20 Medications Name Sig Start Date [...] 0.35 mg tablet active Medicati on ID: 051711 B rand Name: norethin drone (contrac eptive) [...] a day 08/28 completed Medicati on ID: 057305 D uration Value: 14 Brand Name: Ciprodex [...] a day 08/28 completed Medicati on ID: 085430 D uration Value: 7 Brand Name: fluocino lone acetonid e oil Send Method: E-Prescr ibed Sub s Allowed: subs OK Medic ationGen ericName : fluocino lone acetonid e oil Not Available Not Available Not Available M- Plus 27 mg iron-1 mg tablet 08/28 completed Medicati on ID: [id number] B rand Name: M- Plus Sen d Method: E-Prescr ibed Sub s Allowed: subs OK Speci al Instruct ion: TAKE 1 TABLET BY MOUTH EVERY DAY Medi cationGe nericNam e: M- Plus Not Available Not Available Not Available Vitals Date Recorded Body height Body mass index (BMI) Body weight Provider Name and Address Organization Details Last Updated DateTime 08/28/2024 157.48 cm 32.7 kg/m2 50562.03 g MAR HARRY [place] [facility] 08/28/2024 15:22:52 Social History None recorded. Functional Status None recorded. Mental Status None recorded. Family History Nothing Reported. Medical History No medical history recorded. Gynecological HistoryNo gynecological history recorded. Obstetrics History GPAL:G 0 P 0 0 0 0 Past Encounters Encounter ID Performer Location Encounter Start Date Encounter Closed Date Diagnosis/Indication Diagnosis SNOMED-CT Code Diagnosis ICD10 Code Diagnosis IMO Codes Diagnosis Note [id number] ARSEN GOODMAN PA-C [facility] [address] [address] 08/28/2024 15:13:18 08/28/2024 15:54:21 Abnormal auditory perception 88794835 H93.293 Acute sinusitis 53687278 J01.90 Health Concerns Section Related Observation LastModified by Organization Detai ls LastModified Time None Recorded Concern Status LastModified by Organization Details LastModified Time None Recorded Advance Directives Directive None Recorded Payers Insurance Date Sequence Insurance Name Policy Number Policy Irizarry Covered Member ID Irizarry Member ID Guarantor Name 08/23/2024 1 [facility] [id number] Cande Hernandez [id number] Cande Hernandez 08/28/2024 1 [facility] [id number] Cande Hernandez [id number] Cande Hernandez Notes Date Note Type Note [...] history of seasonal allergies. PAULETTE CHEEK MD [address] [place] [address], [phone], [facility] - [facility] 08/29/2024 10:41:39 OBGyn Episode No OBEpisode recorded.
--- OUTSIDE RECORDS SUMMARY | 2025-03-24 18:45 | XMS_ITS | Clinical Summary ---
Author Organization [employer] [facility] ity Address [address] [place] [address] Care Team Providers Care Foot Piece Assembler Name Role Phone Unavailable Primary Care Provider [...]
--- OUTSIDE RECORDS SUMMARY | 2025-03-24 18:45 | XMS_ITS | Encounter Summary ---
Author Organization [employer] Address [address] [place] [address] 7 [place] [address] Care Team Providers Care Journeyman Glazier Name Role Phone Soniya Colon MD Primary Care Provider [phone] Reason for Referral * Consultation (Routine) - Closed Specialty Diagnoses / Procedures Referred By Izaiah mcleod Referred To Contact Urology Diagnoses Kidney stone Sonyia Colon MD [address] [place] [address] Phone: tel: fax: [facility]rology [address] [place] [address] [place] [address] Phone: tel: fax: Referral ID Status Reason Start Date Expiration Date V isits Requested Visits Authorized [id number] Closed Specialty Services Required 09/09/2024 09/09/2025 1 1 Encounter Details Date Type Department Care Team (Late st Contact Info) Description 09/09/2024 Orders Only [facility] [address] [place] [address] Soniya Colon MD [address] [place], [place] [phone] Kidney stone (Primary Dx) Social History Tobacco [...] Description 05/14/2025 4:00 PM EST Office Visit [facility] [address] [place] [address] Soniya Colon MD [address] [place] [address] 07/02/2025 3:30 PM EST Office Visit [facility] OPTOMETRY [address] [place] [address] Katelyn Borjas, LISSETH [address] [place] [address] documented as of this encounter Procedures Procedure [...] documented as of this encounter Care Teams Journeyman Glazier Relationship Specialty Start Date End Date Soniya Colon MD [address] [place] [address] PCP - General Family Medicine 01/19/21 documented as of this encounter
--- OUTSIDE RECORDS SUMMARY | 2025-03-24 18:45 | XMS_ITS | Encounter Summary ---
Author Organization [employer] Address [address] [place] [address] 7t [place] [address] Care Team Providers Care Patent Law Specialist Name Role Phone Soniya Colon MD Primary Care Provider Reason for Referral * Consultation (Routine) - Authorized Specialty Diagnoses / Procedures Referred By Contac t Referred To Contact Pulmonary Disease Diagnoses Pneumonia of left lung due to Mycoplasma pneumoniae, unspecified part of lung Soniya Colon MD [address] [place] [address] Phone: tel: fax: [facility] Pulmonary [address] 1[address] Floor [place], [place] Phone: tel: fax: Referral ID Status Reason Start Date Expiration Date Visits Requested Visits Authorized [id number] Authorized Specialty Services Required 03/05/2025 03/05/2026 1 1 Encounter Details Date Type Department Care Team (Late st Contact Info) Description 03/05/2025 Orders Only [facility] MEDICINE [address] [place] [phone] Soniya Colon MD [address] [place], [place] [phone] Pneumonia of left lung due to Mycoplasma pneumoniae, unspecified part of lung (Primary Dx) Social History Tobacco Use Types [...] Description 05/14/2025 4:00 PM EST Office Visit [facility]INE [address] [place] [address] Soniya Colon MD [address] [place] [address] 07/02/2025 3:30 PM EST Office Visit [facility] OPTOMETRY [address] [place], [place] [phone] [place], Katelyn, OD [address] [place] [address] Scheduled Referrals Name Type Priority Associated Diagnoses Orde r Schedule Referral to Pulmonology Outpatient Referral Routine Pneumonia of left lung due to Mycoplasma pneumoniae, unspecified part of lung Expected: 03/05/2025 (Approximate), Expires: 03/05/2026 documented as of this encounter Visit Diagnoses Diagnosis Pneumonia of left lung due to Mycoplasma pneumoniae, unspecified part of lung- Primary documented in this encounter Additional Health Concerns Assessment Noted Time PHQ-9 Depression Total Score: 4 03/25/20 24 2:12 PM EDT documented as of this encounter Care Teams Patent Law Specialist Relationship Specialty Start Date End Date Soniya Colon MD [address] [place], [place] [phone] PCP - General Family Medicine 01/19/21 documented as of this encounter
--- OUTSIDE RECORDS SUMMARY | 2025-03-24 18:45 | XMS_ITS | Encounter Summary ---
Author Organization [employer] Address [address] [place] [address] [address] [place] [address] Care Team Providers Care Show Host Name Role Phone Soniya Colon MD Primary Care Provider [phone] Reason for Visit * Reason Onset Date Comments chart prep 03/21/2025 Encounter Details Date Type Department Care Team ([facility] st Contact Info) Description 03/21/2025 Telephone [facility] [address] [place], [place] [phone] Soniya Colon MD [address] [place] [address] chart prep Social History Tobacco Use Types Packs/Day Years [...] encounter Miscellaneous Notes * Telephone Encounter - Jihan Roger MA - 03/21/2025 2:27 PM EDT Chart Prep Labs: done Images: done Referrals: complete Vaccines due: Covid, Flu, and PCV20 Screenings: not applicable Overdue care gaps: A1c, Glucose, PHQ-9, and RACHAEL-7 documented in this encounter Plan of Treatment Upcoming Encounters Date Type Department Care Team (Late st Contact Info) Description 05/14/2025 4:00 PM EST Office Visit [facility] MEDICINE [address] [place] [address] Soniya Colon MD [address] [place], [place] [phone] 07/02/2025 3:30 PM EST Office Visit [facility] OPTOMETRY [address] [place], [place] [phone] Katelyn Borjas, OD [address] [place], [place] [phone] documented as of this encounter Visit Diagnoses Not on filedocumented in this encounter Additional Health Concerns Assessment Noted Time PHQ-9 Depression Total Score: 4 03/25/20 24 2:12 PM EDT documented as of this encounter Care Teams Show Host Relationship Specialty Start Date End Date Soniya Colon MD [address] [place], [place] [phone] PCP - General Family Medicine 01/19/21 documented as of this encounter
--- OUTSIDE RECORDS SUMMARY | 2025-03-24 18:45 | XMS_ITS | Encounter Summary ---
Author Organization [employer] Address [address] [place] [address] 7 [place] [address] Care Team Providers Care Food Specialist Name Role Phone Soniya Colon MD Primary Care Provider [phone] Reason for Visit * Reason Onset Date Comments triage 10/10/2022 Encounter Details Date Type Department Care Team ([facility] st Contact Info) Description 10/10/2022 Telephone [facility] [address] [place] [address] Soniya Colon MD [address] [place], [place] [phone] triage Social History Tobacco Use Types Packs/Day [...] few days. Pt is on vacation in [place] and will return 10/11 afternoon. Pt reports taking apap/motrin alternating every 6 hours and using muscle relaxer but, not effecting pain. Pt reports radiation of pain to left leg. Pt is offered apt 10/17 but,requests to be seen sooner. Pt will come to [facility] upon arrival home 10/11. Home care [...] Description 05/14/2025 4:00 PM EST Office Visit [facility] [address] [place] [address] Soniya Colon MD [address] [place] [address] 07/02/2025 3:30 PM EST Office Visit [facility] OPTOMETRY [address] [place] [address] Katelyn Borjas OD [address] [place] [address] documented as of this encounter Visit Diagnoses Not on filedocumented in this encounter Care Teams Food Specialist Relationship Specialty Start Date End Date Soniya Colon MD [address] [place] [address] PCP - General Family Medicine 01/19/21 documented as of this encounter
--- OUTSIDE RECORDS SUMMARY | 2025-03-24 18:45 | XMS_ITS | Encounter Summary ---
Author Organization [employer] Address [address] [place] [address] 7 [place] [address] Care Team Providers Care Supervisor Engraving Name Role Phone Soniya Colon MD Primary Care Provider [phone] Encounter Details Date Type Department Care Team ([facility] st Contact Info) Description 10/16/2023 Orders Only [facility] MEDICINE [address] [place] [address] Soniya Colon MD [address] [place] [address] Social History Tobacco Use Types Packs/Day Years [...] 05/14/2025 4:00 PM EST Office Visit [facility] MEDICINE [address] [place] [address] Soniya Colon MD [address] [place] [address] 07/02/2025 3:30 PM EST Office Visit [facility] OPTOMETRY [address] [place] [address] Indio, Katelyn, OD [address] [place] [address] documented as of this encounter Visit Diagnoses Not on filedocumented in this encounter Additional Health Concerns Assessment Noted Time PHQ-9 Depression Total Score: 13 023 3:47 PM EST documented as of this encounter Care Teams Supervisor Engraving Relationship Specialty Start Date End Date Soniya Colon MD [address] [place] [address] PCP - General Family Medicine 01/19/21 documented as of this encounter
--- OUTSIDE RECORDS SUMMARY | 2025-03-24 18:45 | XMS_ITS | Encounter Summary ---
Author Organization [employer] Address [address] [place] [address] [address] [place] [address] Care Team Providers Care Manufacturing Automation Engineer Name Role Phone Soniya Colon MD Primary Care Provider [phone] Encounter Details Date Type Department Care Team (Latest Contact Info) Description 03/24/2025 Travel Social History Tobacco Use Types Packs/Day [...] the past 12 months, has t he [employer], gas, oil or water company threatened to [...] AM EDT documented as of this encounter Functional Status * Over the [...] 3:23 PM EDT Honey Wood [place] * Moving or speaking so slowly [...] Description 05/14/2025 4:00 PM EST Office Visit [facility] MEDICINE [address] [place] [address] Soniya Colon MD [address] [place] [address] 07/02/2025 3:30 PM EST Office Visit [facility] OPTOMETRY [address] [place] [address] Indio, Katelyn, OD [address] [place] [address] documented as of this encounter Visit Diagnoses Not on filedocumented in this encounter Additional Health Concerns Assessment Noted Time PHQ-9 Depression Total Score: 10 025 3:23 PM EDT documented as of this encounter Care Teams Manufacturing Automation Engineer Relationship Specialty Start Date End Date Soniya Colon MD [address] [place] [address] PCP - General Family Medicine 01/19/21 documented as of this encounter
--- OUTSIDE RECORDS SUMMARY | 2025-03-24 18:45 | XMS_ITS | Clinical Summary ---
Author Organization [employer] [facility] Address [address] [address] Phone Care Team Providers Care Offal Worker Name Role Phone Soniya Colon MD Primary Care Provider + Allergies Active Allergy Reactions Criticality Noted Date Comments Sulfamethoxazole-Trimetho prim Hives 04/06/2023 Other Reaction(s): Terbinafine Terbinafine Swelling 04/06/2023 SWOLLEN LIPS Black Mangum Anaphylaxis High 11/10/2023 Medications SUMAtriptan (IMITREX) 50 [...] AM EDT) HCV NON-REACTIV E NON-REACTI VE [facility] Blood 11/06/2023 10:3 4 AM EDT 11/06/2023 10:42 AM EDT Miguel Aguayo MD LAB BLOOD ORDERABLES Final Re sult [address] [id number] from Last 3 Months or Most Recently Relevant to Health Maintenance Insurance [facility] Advance Directives For more information, please contact: [phone] (9AM - 5PM [facility], Monday-Monday) Documents on File Type Date Recorded Patient Microbiology Soil Scientist Expl anation Healthcare Proxy 11/17/2023 4:31 PM Care Teams Offal Worker Relationship Specialty Start Date End Date Soniya Colon MD PCP - General Family Medicine 03/27/23 Additional Source Comments The information contained in this document represents components of the legal health record. It is not the complete legal health record.[facility]
--- OUTSIDE RECORDS SUMMARY | 2025-03-24 18:45 | XMS_ITS | Encounter Summary ---
Author Organization [employer] Address [address] [place] [address] [address] [place] [address] Care Team Providers Care Railroad Emergency Services Manager Name Role Phone Soniya Colon MD Primary Care Provider [phone] Encounter Details Date Type Department Care Team (Late st Contact Info) Description 04/25/2022 Abstract [facility] [address] [place] [address] Soniya Colon MD [address] [place] [address] Social History Tobacco Use Types Packs/Day Years [...] Description 05/14/2025 4:00 PM EST Office Visit [facility] [address] [place] [address] Soniya Colon MD [address] [place] [address] 07/02/2025 3:30 PM EST Office Visit [facility] [address] [place] [address] [place], Katelyn, OD [address] [place] [address] documented as of this encounter Visit Diagnoses Not on filedocumented in this encounter Care Teams Railroad Emergency Services Manager Relationship Specialty Start Date End Date Soniya Colon MD [address] [place] [address] PCP - General Family Medicine 01/19/21 documented as of this encounter
--- OUTSIDE RECORDS SUMMARY | 2025-03-24 18:45 | XMS_ITS | Encounter Summary ---
Author Organization [employer] [facility] Address [address] [facility] [address] [place] [address] Phone Care Team Providers Care Chief Analytics Officer Name Role Phone Soniya Colon MD Primary Care Provider + Encounter Details Date Type Department Care Team ([facility] st Contact Info) Description 03/27/2023 Transcribe Orders [facility] [address] [place] [address] Soniya Colon MD [address] [place] [address] Social History Tobacco Use Types Packs/Day Years [...] on filedocumented in this encounter Care Teams Chief Analytics Officer Relationship Specialty Start Date End Date Soniya Colon MD PCP - General Family Medicine 03/27/23 documented as of this encounter Additional Source Comments The information contained in this document represents components of the legal health record. It is not the complete legal health record.[facility]
--- OUTSIDE RECORDS SUMMARY | 2025-03-24 18:45 | XMS_ITS | Encounter Summary ---
Author Organization [employer] Address [address] [place] [address] [address] [place] [address] Care Team Providers Care Discharge Rn Name Role Phone Soniya Colon MD Primary Care Provider Reason for Visit * Reason Comments Med Refill Encounter Details Date Type Department Care Team (Late st Contact Info) Description 07/06/2022 Refill [facility] [address] [place], [place] [phone] Sohail Rouse MD [address] [place] [address] [phone] Social History Tobacco Use Types Packs/Day Years [...] Description 05/14/2025 4:00 PM EST Office Visit [facility] [address] [place] [address] [phone] Soniya Colon MD [address] [place] [address] [phone] 07/02/2025 3:30 PM EST Office Visit [facility] [address] [place] [address] Katelyn Borjas, OD [address] [place], [place] [phone] documented as of this encounter Visit Diagnoses Not on filedocumented in this encounter Care Teams Discharge Rn Relationship Specialty Start Date End Date Soniya Colon MD [address] [place], [place] [phone] PCP - General Family Medicine 01/19/21 documented as of this encounter
--- OUTSIDE RECORDS SUMMARY | 2025-03-24 18:45 | XMS_ITS | Clinical Summary ---
Author Organization [employer] Address [address] [place] [address] 7[address] [place] [address] Care Team Providers Care Data Developer Name Role Phone Soniya Colon MD Primary Care Provider [phone] Allergies Active Allergy Reactions Criticality Noted Date Comments [place] Flavoring Agent (Non-Screening) Anaphylaxis High 11/10/2023 Sulfamethoxazole [...] the evening and 2 tablets before bedtime. 022 Active SUMAtriptan (Imitrex) 50 MG tablet TAKE 1 TABLET BY MOUTH EVERY 2 HOURS NEEDED FOR MIGRAINE HEADACHE DO NOT EXCEED 2 DOSES/24 HRS 023 Active albuterol 108 (90 Base) MCG/ACT inhaler Inhale 2 puffs every 4 (four) hours. 18 g 1 025 Active glucose blood (OneTouch Ultra) test stripIndications: Prediabetes Use one strip to test blood sugar once daily 100 each 3 025 2025 Active OneTouch UltraSoft 2 Lancets miscIndications:P rediabetes 1 Lancet Once per day. 100 each 3 025 Active Alcohol Swabs 70 % padsIndications:P rediabetes Use 1 alcohol swab to test blood sugar once daily 100 each 3 Active Blood Glucose Monitoring Suppl (ONE TOUCH ULTRA 2) w/Device kitIndications:Pr ediabetes Use to test blood sugar once daily 1 kit Active Multiple Vitamin (multivitamin) tablet Take 1 tablet by mouth Once per day. Active budesonide-formot maeve (Symbicort) 160-4.5 MCG/ACT inhaler Inhale 2 puffs in the morning and at bedtime. Rinse mouth with water after use to reduce aftertaste and incidence of candidiasis. Do not swallow. 1 each 11 2025 Active albuterol 108 (90 Base) MCG/ACT inhaler Inhale 2 puffs every 4 (four) hours. 2024 Discontinued(R eorder (will not trigger notification to Pharmacy)) betamethasone valerate (Valisone) 0.1 % cream Apply topically twice a day. 2024 Discontinued(M ed list cleanup (will not trigger notification to Pharmacy)) ibuprofen 400 MG tablet Take 1 tablet by mouth in the morning and 1 tablet at noon and 1 tablet in the evening and 1 tablet before bedtime. 2024 Discontinued(M ed list cleanup (will not trigger notification to Pharmacy)) Neomycin-Polymyxi n-HC 1 % solution instill 4 drops by otic route 3 times every day into affected ear(s) for 5-7 days 2024 Discontinued(M ed list cleanup (will not trigger notification to Pharmacy)) sodium chloride ([place]) 0.65 % nasal spray 2 sprays in each nostril 4x/day prn 2024 Discontinued(M ed list cleanup (will not trigger notification to Pharmacy)) fluticasone (Flonase) 50 MCG/ACT nasal spray SPRAY 1 SPRAY INTO EACH NOSTRIL TWICE A DAY FOR 30 DAYS 023 2024 Discontinued(I neffective) neomycin-polymyxi n-hydrocortisone (Cortisporin) 3.5-68355-3 otic suspension INSTILL 4 DROPS TO AFFECTED EAR 3 TIMES A DAY FOR 5- 7 DAYS 2024 Discontinued(M ed list cleanup (will not trigger notification to Pharmacy)) triamcinolone (Kenalog) 0.5 % cream APPLY TO AFFECTED AREA TOPICALLY FOR 10 DAYS 2024 Discontinued(M ed list cleanup (will not trigger notification to Pharmacy)) metoclopramide (Reglan) 5 MG tablet Take 1 tablet (5 mg) by mouth if needed each day (part of migraine cocktail with benadryl) for up to 15 days. 15 tablet 2024 Discontinued(M ed list cleanup (will not trigger notification to Pharmacy)) fluocinolone (DermOtic) 0.01 % ear drops APPLY 5 DROPS INTO BOTH EARS TWICE A DAY 2024 Discontinued(M ed list cleanup (will not trigger notification to Pharmacy)) neomycin-polymyxi n-dexAMETHasone (Maxitrol) 3.5-62399-4.1 ophthalmic suspension INSTILL 1 DROP INTO AFFECTED EYE EVERY 4 HOURS FOR 7 DAYS 2024 Discontinued(M ed list cleanup (will not trigger notification to Pharmacy)) ondansetron ODT (Zofran-ODT) 4 MG disintegrating tablet TAKE 1 TABLET BY MOUTH EVERY 6 TO 8 HOURS NEEDED FOR NAUSEA AND VOMITING 2024 Discontinued(T herapy completed) oxyCODONE (Oxy-IR) 5 MG immediate release capsule TAKE 1 CAPSULE BY MOUTH 3 TIMES A DAY NEEDED FOR PAIN FOR 3 DAYS 2024 Discontinued(T herapy completed) benzonatate (Tessalon) 100 MG capsule TAKE 1 CAPSULE BY MOUTH TWICE A DAY NEEDED FOR COUGH FOR 7 DAYS. 2024 Discontinued(M ed list cleanup (will not trigger notification to Pharmacy)) doxycycline (Vibra-Tabs) 100 MG tablet Take 100 mg by mouth 2 times daily. 2024 Discontinued(M ed list cleanup (will not trigger notification to Pharmacy)) Vitamin A (beta carotene) 3 MG (59554 UT) tablet Take 1 tablet by mouth Once per day. 90 tablet 2024 Discontinued(M ed list cleanup (will not trigger notification to Pharmacy)) amitriptyline (Elavil) 10 MG tablet Take 1 tablet (10 mg) by mouth at bedtime. 30 tablet 3 2024 Discontinued(M ed list cleanup (will not trigger notification to Pharmacy)) Drospirenone (Slynd) 4 MG tablet Take 1 tablet by mouth Once per day. 28 tablet 11 2024 Discontinued(S olive effects) propranolol (Inderal) 10 MG tabletIndications :Situational anxiety TAKE 1 TABLET BY MOUTH 1 HOUR PRIOR TO CLASS/EXAM NEEDED. 90 tablet 2024 Discontinued(I neffective) predniSONE (Deltasone) 20 MG tablet Take 2 tabs orally for 3 days, then 1 tab orally for 3 more days 9 tablet 2024 Discontinued(M ed list cleanup (will not trigger notification to Pharmacy)) levoFLOXacin (Levaquin) 750 MG tablet 2024 Discontinued(M ed list cleanup (will not trigger notification to Pharmacy)) Blood Glucose Monitoring Suppl w/Device kit 1 each at noon and 1 each in the evening. 1 kit 2024 Discontinued(M ed list cleanup (will not trigger notification to Pharmacy)) Alcohol Sheets (Alcoh-Wipe) sheet Test daily before all meals/snacks and once before bedtime. 1 each 2024 Discontinued(M ed list cleanup (will not trigger notification to Pharmacy)) glucose blood test strip Test blood sugar twice a day 100 each 12 2024 Discontinued(M ed list cleanup (will not trigger notification to Pharmacy)) Lancets misc 1 each at noon and 1 each in the evening. 100 each 2024 Discontinued(M ed list cleanup (will not trigger notification to Pharmacy)) Hospital, Clinic, or Other Facility Administered Medication Ordered Dose Route Frequency Start Date End Date Status ipratropium-albute rol (Duo-Neb) 0.5-2.5 mg/3 mL nebulizer solution 3 mgIndications:Coug h, unspecified type,Fever, unspecified fever cause,Moderate persistent asthma with exacerbation 3 mg NEBULIZATION Once 02/26/2025 5 Ended predniSONE (Deltasone) tablet 50 mgIndications:Coug h, unspecified type,Fever, unspecified fever cause,Moderate persistent asthma with exacerbation 50 mg PO Daily 02/26/2025 5 Discontinued Active Problems Problem Noted Date Diagnosed Date [...] 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, we reviewed [...] 04/25/2022 Weight gain 04/25/2022 Von Willebrand disease ([facility]) 03/29/2022 Contact dermatitis 01/21/2013 Resolved Problems Problem Noted Date Diagnosed Date Resolved Date Vaginal discharge 04/25/2022 05/17/2024 Rhabdomyolysis 12/21/2021 05/17/2024 Encounters Date Type Department Care Team Description 03/24/2025 2:45 PM EDT Office Visit [facility] [address] [place] [phone] Soniya Colon MD History of mycoplasma pneumonia (Primary Dx); Prediabetes 03/24/2025 Travel 03/21/2025 Telephone [facility] [address] [place] [address] [phone] Soniya Colon MD chart prep 03/07/2025 Telephone [facility] [address] [place] [address] [phone] Soniya Colon MD Medication Question 03/06/2025 Patient Outreach [facility] [address] [place] [address] Soniya Colon MD Transition Of Care (Tcm) (HDF scheduled. ) 03/06/[address] [address] Soniya Colon MD Hospital Follow-up 03/05/2025 Orders Only [address] [address] Soniya Colon MD Pneumonia of left lung due to Mycoplasma pneumoniae, unspecified part of lung (Primary Dx) 02/28/[address] [address] Soniya Colon MD 02/26/2025 10:20 AM EDT [facility] [address] [address] Alissa May MD Moderate persistent asthma with exacerbation (Primary Dx); Cough, unspecified type; Fever, unspecified fever cause; Respiratory crackles 1/2 way up posterior chest wall on left side 02/26/2025 Orders Only GENERIC EXTERNAL DATA DEPARTMENT Provider, Generic External Data 02/26/2025 Telephone [facility] [address] [address] Soniya Colon MD 02/26/2025 Travel 01/22/2025 Orders Only [address] [address] Soniya Colon MD Weight gain (Primary Dx) 01/17/2025 Refill [facility] [address] [address] Renetta Finney NP Situational anxiety 01/15/2025 Results Follow-Up [address] [address] Nicolette Landa CNM TSH W/Reflex to FT4, POCT Hemoglobin, CBC, Additional followed-up results: 2 01/14/2025 3:15 PM EDT Office Visit [address] [address] Nicolette Landa CNM Abnormal uterine bleeding 01/14/2025 Orders Only [address] [address] Nicolette Landa CNM 01/14/2025 Travel 01/07/2025 Orders Only [facility] [address] [place] [address] Nicolette Landa CNM Von Willebrand disease ([facility]) (Primary Dx) 01/06/2025 Telephone [facility] [address] [place], [place] [phone] Kaitlyn Lozano RN 12/25/2024 6:20 PM EDT Office Visit [facility] [address] [place] [address] Renetta Finney NP Situational anxiety (Primary Dx); Elevated blood pressure reading 12/25/2024 Travel from Last 3 Months Immunizations Immunization [...] Mass Index 34.06 03/24/2025 3:21 PM EDT Plan of Treatment Upcoming Encounters Date Type Department Care Team (Late st Contact Info) Description 05/14/2025 4:00 PM EST Office Visit [facility] [address] [place] [address] Soniya Colon MD [address] [place] [address] 07/02/2025 3:30 PM EST Office Visit [facility] [address] [place] [address] Katelyn Borjas OD [address] [place] [address] Health Maintenance Due Date Last Done Comments Dental Oral Exam 1996 Dental Prophylaxis 1996 Dental X-Ray: Bitewings 1996 Dental X-Ray: Full Mouth 1996 HIV Screening 1996 Hepatitis C Screening 2014 Pneumococcal Vaccine: Pediatrics (0 to 5 Years) and At-Risk Patients (6 to 49) Years (1 of 2 - PCV) 09/02/2015 COVID-19 Vaccine ( season) 2025 02/11/2022, 07/16/2021, 07/16/2021, Additional history exists Influenza Vaccine (#1) 2025 , 02/11/2022, 03/04/2020, Additional history exists Alcohol/Substance Use Screening 05/17/2025 05/17/2024 Depression Monitoring 09/22/2025 03/24/2025, 025 Disability Screening 12/03/2025 12/03/2024 SDOH Screening 12/03/2025 12/03/2024 Family Planning (PISQ) 01/14/2026 01/14/2025 Diabetes: Hemoglobin A1C 03/24/2026 025, 09/30/2022, 11/17/2021 Tobacco Screening 03/24/2026 03/24/2025 Pap Smear 09/18/2027 09/17/2024, 02/10/2021 DTaP/Tdap/Td Vaccines (8 - Td or Tdap) 05/16/2029 05/16/2019, 01/12/2009, 11/07/2000, Additional history exists Zoster Vaccines (1 of 2) 2046 RSV Patients and Patients Aged 60 years or older (1 - 1-dose 75+ series) 09/02/2071 HIB Vaccines Completed 12/26/1997, 07/05/1997, 03/28/1997, Additional history exists Hepatitis B Vaccines [...] GLUCOSE Routine 03/24/2025 3:22 PM EDT Prediabetes XR CHEST 2 VIEWS Routine 03/03/2025 8:55 AM EDT XR CHEST 1 VIEW Routine 02/28/2025 3:22 AM EDT LACTIC ACID LAB USE ONLY Routine 02/26/2025 6:48 PM EDT CTA CHEST PE PROTOCAL Routine 02/26/2025 4:40 PM EDT LACTIC ACID Routine 02/26/2025 4:34 PM EDT HIGH SENSITIVITY TROPONIN I Routine 02/26/2025 4:06 PM EDT D DIMER HIGH SENSITIVITY Routine 02/26/2025 2:07 PM EDT TSH W/REFLEX TO FT4 Routine 02/26/2025 1 :15 PM EDT HIGH SENSITIVITY TROPONIN I Routine 02/26/2025 1:15 PM EDT HCG, TOTAL, QN Routine 02/26/2025 1:15 PM EDT MAGNESIUM Routine 02/26/2025 1:15 PM EDT BASIC METABOLIC PANEL Routine 02/26/2025 1:15 PM EDT HEPATIC FUNCTION PANEL Routine 02/26/2025 1:15 PM EDT CBC WITH AUTO DIFFERENTIAL Routine 02/26/2025 1:15 PM EDT XR CHEST 2 VIEWS Routine 02/26/2025 11:4 [...] 01/14/2025 3:29 PM EDT Abnormal uterine bleeding PAP SMEAR Routine 09/17/2024 12:00 AM EDT Screening for cervical cancer from Last 3 Months or Most Recently Relevant to Health Maintenance Results * (ABNORMAL) POCT Hgb A1c (03/24/2025 3:56 PM EDT) Hemoglobin A1C 6.5(A) 4.0 - 5.7 % QC Media Lot # [id number] Lot# Expiration Date , Blood 03/24/2025 3:56 PM EDT Soniya Colon MD POINT OF CARE TEST ENTER/EDIT ORDERABLES Final Result * XR Chest 2 Views (03/24/2025 3:54 PM EDT) Only the most recent of3 resultswithin the time period is included. Anatomical Region Laterality Modality Chest Radiographic [place] 03/24/2025 3:54 PM EDT Narrative 03/24/2025 4:00 [place] [address] XRay Report Signed Patient: Cande Hernandez MR#: [id number] : 1995 Acct:[id number] Age/Sex: 29 / F ADM Date: 03/24/25 Loc: HO.[facility] Attending Dr: Soniya Colon MD Ordering Physician: Soniya Colon Date of Service: 03/24/25 Procedure(s): XR chest 2V Accession Number(s): [id number] cc: Soniya Colon Reason for Exam: recent [...] in OV> 03/24/251556 DD/ 155 TD/TT: 03/24/251553 Station Mechanic Helper: Procedure Note Donotuseinterpreter, Image - 03/24/[address] [address] XRay Report Signed Patient: Cande Hernandez KMR#: [id number] : 1995Acct:[id number] Age/Sex: 29 / FADM Date: 03/24/25 [facility] Attending Dr: Soniya Colon MD Ordering Physician: Soniya Colon Date of Service: 03/24/25 Procedure(s): XR chest 2V Accession Number(s): [id number] cc: Soniya Colon Reason for Exam: recent [...] Angel Ford MDin OV> 03/24/25 155 DD/ 53 TD/TT: 03/24/251553 Station Mechanic Helper: Soniya Colon MD IMG XR PROCEDURES Final Result * POCT Glucose (03/24/2025 3:22 PM EDT) Glucose Blood, POC 115 60 - 200 mg/dL QC Media Lot # [id number] Lot# Expiration Date 3 Blood Capillary blood specimen / Unknown 03/24/2025 3:22 PM EDT Soniya Colon MD POINT OF CARE TEST ENTER/EDIT ORDERABLES Final Result * XR Chest 1 View (02/28/2025 3:22 AM EDT) Anatomical Region Laterality Modality Chest Radiographic [place] 02/28/2025 3:22 AM EDT Narrative 02/28/2025 3:25 AM EDT [place] [address] XRay Report Signed Patient: Cande Hernandez MR#: [id number] : 1995 Acct:[id number] Age/Sex: 29 / F ADM Date: 02/26/25 Loc: [facility] 446-[address]: Jeanine Barker MD Ordering Physician: Jerel Hernadez MD Date of Service: 02/28/25 Procedure(s): XR chest 1V Accession Number(s): [id number] cc: Jerel Hernadez MD; Soniya Colon Reason for Exam: worsening O2 sats CLINICAL HISTORY: worsening O2 sats Chest X-ray, 1 View COMPARISON: CR/SR - XR CHEST 2 VIEWS - 02/26/25 11:48 EDT FINDINGS: Increased diffuse patchy bilateral pulmonary consolidations. Possible left pleural effusion. No pneumothorax. No cardiomegaly. No acute fracture. IMPRESSION: Increased diffuse bilateral pulmonary consolidations, which could be due to multilobar pneumonia. Possible left pleural effusion. This document has been electronically signed by: Chi Martinez MD on 02/28/2025 03:22:40 Dictated By: Chi Martinez MD Signed By: <Electronically signed by Chi Martinez MD in OV> 02/28/25323 DD/ 1 TD/TT: 02/28/25321 Station Mechanic Helper: Procedure Note Donotuseinterpreter, Image - 02/28/[address] [address] XRay Report Signed Patient: Cande Hernandez KMR#: [id number] : 1995Acct:[id number] Age/Sex: 29 / FADM Date: 02/26/25 Loc: [facility] 446-[address]: Jeanine Barker MD Ordering Physician: Jerel Hernadez MD Date of Service: 02/28/25 Procedure(s): XR chest 1V Accession Number(s): [id number] cc: Jerel Hernadez MD; Soniya Colon Reason for Exam: worsening O2 sats CLINICAL HISTORY: worsening O2 sats Chest X-ray, 1 View COMPARISON: CR/SR - XR CHEST 2 VIEWS - 02/26/25 11:48 EDT FINDINGS: Increased diffuse patchy bilateral pulmonary consolidations. Possible left pleural effusion. No pneumothorax. No cardiomegaly. No acute fracture. IMPRESSION: Increased diffuse bilateral pulmonary consolidations, which could be due to multilobar pneumonia. Possible left pleural effusion. This document has been electronically signed by: Chi Martinez MD on 02/28/2025 03:22:40 Dictated By: Chi Martinez MD Signed By: <Electronically signed by Chi Martinez MD in OV> 02/28/25323 DD/ 1 TD/TT: 02/28/25321 Station Mechanic Helper: [facility] External Provider IMG XR PROCEDURES Edited Result - Final * (ABNORMAL) Lactic Acid (02/26/2025 6:48 PM EDT) Lactic Acid 2.1(HH) 0.5 - 2.0 mmol/L [facility] Comment:Critical value for t est(s): LA Results called to and readback by: MOOSE Person calling:KUSF Date:[id number]:[id number] 02/26/2025 6:48 PM EDT 02/26/2025 6:53 PM EDT us Generic External Data Provider LAB BLOOD ORDERAB LES Final Result [facility] [address] [place] [phone] * CTA Chest PE Protocal (02/26/2025 4:40 PM EDT) Anatomical Region Laterality Modality Body, Chest Computed Tomogra phy 02/26/2025 4:40 PM EDT Narrative 02/26/2025 5:06 PM EDT [address] [address] [address] Scan Report Signed Patient: Cande Hernandez MR#: [id number] : 1995 Acct:[id number] Age/Sex: 29 / F ADM Date: 02/26/25 Loc: HO.ED Attending Dr: Ordering Physician: Al Erickson Date of Service: 02/26/25 Procedure(s): CT angio chest PE protocol Accession Number(s): [id number] cc: Soniya Colon; Al Erickson Report Number: [id number]: Total DLP = 360.00 mGy-cm Reason for Exam: hypoxia multifocal pneumonia EXAMINATION: CT ANGIOGRAM CHEST CLINICAL INFORMATION: hypoxia and multifocal pneumonia COMPARISON: Same-day chest x-ray TECHNIQUE: Multiple axial images were obtained through the chest after the administration of 65 mL of Omnipaque 350 intravenous contrast. Extensive vascular post-processing including two-dimensional and three-dimensional reformatted images were created and reviewed on an independent workstation. This CT examination was performed using dose optimization techniques as appropriate, variously including the following: *Automated exposure control *Adjustment of mA and/or kV according to patient size (this includes techniques or standardized protocols for targeted exams where dose is matched to indication/reason for exam; i.e. extremities or head) *Use of iterative reconstruction technique FINDINGS: QUALITY OF STUDY/CONTRAST BOLUS: Adequate PULMONARY ARTERIES: No filling defects are identified in the pulmonary arteries. THORACIC AORTA: Unremarkable LUNGS AND PLEURA: There is a space opacity with air bronchograms in the left upper lobe tracking along the major fissure and into the lingula. There is patchy groundglass and nodular densities in the left upper lobe. One of the nodular densities measures 8 mm in located in the anterior left upper lobe. There is airspace opacity in the medial superior portion of the left lower lobe as well as multifocal nodular densities with multifocal groundglass densities. Airspace opacities do not enhance which is most consistent with pneumonia. There is linear density tracking along the medial aspect of the major fissure on the right, likely atelectasis and/or scarring. There are septal lines in the anterior lower portion of the right upper lobe. Right lung is clear otherwise. There is trace pleural effusion on the left. MEDIASTINUM: There is a small prevascular node. CORONARY ARTERY CALCIFICATION: Nonvisualized CHEST WALL/AXILLA: No axillary or internal mammary lymphadenopathy. UPPER ABDOMEN: Diffuse low attenuation is noted throughout the liver. The gallbladder is absent and there is a clip in the gallbladder fossa. BONES: Unremarkable CT/CT angio chest PE protocol IMPRESSION: No evidence of pulmonary embolus. Multifocal pneumonia in the left lung, most pronounced in the left upper lobe with trace parapneumonic effusion. There are multifocal nodular densities that are probably related to pneumonia, however underlying pulmonary nodules are not ruled out. Given the patient's age, malignancy is unlikely. If there are underlying risk factors, consider follow-up CT chest without contrast after resolution of symptoms. Hepatic steatosis. Fleischner guidelines were followed. Electronically signed by: David Downey MD 02/26/2025 05:02 PM EDT Dictated By: David Downey MD Signed By: <Electronically signed by David Downey MD in OV> 02/26/25 1702 DD/ 1640 TD/TT: 02/26/25 1650 Station Mechanic Helper: Procedure Note Donotuseinterpreter, Image - 02/26/[address] [address] [address] Scan Report Signed Patient: Cande Hernandez KMR#: [id number] : 1995Acct:[id number] Age/Sex: 29 / FADM Date: 02/26/25 Loc: HO.ED Attending Dr: Ordering Physician: Al Erickson Date of Service: 02/26/25 Procedure(s): CT angio chest PE protocol Accession Number(s): [id number] cc: Soniya Colon; Al Erickson Report Number: [id number]: Total DLP = 360.00 mGy-cm Reason for Exam: hypoxia multifocal pneumonia EXAMINATION: CT ANGIOGRAM CHEST CLINICAL INFORMATION: hypoxia and multifocal pneumonia COMPARISON: Same-day chest x-ray TECHNIQUE: Multiple axial images were obtained through the chest after the administration of 65 mL of Omnipaque 350 intravenous contrast. Extensive vascular post-processing including two-dimensional and three-dimensional reformatted images were created and reviewed on an independent workstation. This CT examination was performed using dose optimization techniques as appropriate, variously including the following: *Automated exposure control *Adjustment of mA and/or kV according to patient size (this includes techniques or standardized protocols for targeted exams where dose is matched to indication/reason for exam; i.e. extremities or head) *Use of iterative reconstruction technique FINDINGS: QUALITY OF STUDY/CONTRAST BOLUS: Adequate PULMONARY ARTERIES: No filling defects are identified in the pulmonary arteries. THORACIC AORTA: Unremarkable LUNGS AND PLEURA: There is a space opacity with air bronchograms in the left upper lobe tracking along the major fissure and into the lingula. There is patchy groundglass and nodular densities in the left upper lobe. One of the nodular densities measures 8 mm in located in the anterior left upper lobe. There is airspace opacity in the medial superior portion of the left lower lobe as well as multifocal nodular densities with multifocal groundglass densities. Airspace opacities do not enhance which is most consistent with pneumonia. There is linear density tracking along the medial aspect of the major fissure on the right, likely atelectasis and/or scarring. There are septal lines in the anterior lower portion of the right upper lobe. Right lung is clear otherwise. There is trace pleural effusion on the left. MEDIASTINUM: There is a small prevascular node. CORONARY ARTERY CALCIFICATION: Nonvisualized CHEST WALL/AXILLA: No axillary or internal mammary lymphadenopathy. UPPER ABDOMEN: Diffuse low attenuation is noted throughout the liver. The gallbladder is absent and there is a clip in the gallbladder fossa. BONES: Unremarkable CT/CT angio chest PE protocol IMPRESSION: No evidence of pulmonary embolus. Multifocal pneumonia in the left lung, most pronounced in the left upper lobe with trace parapneumonic effusion. There are multifocal nodular densities that are probably related to pneumonia, however underlying pulmonary nodules are not ruled out. Given the patient's age, malignancy is unlikely. If there are underlying risk factors, consider follow-up CT chest without contrast after resolution of symptoms. Hepatic steatosis. Fleischner guidelines were followed. Electronically signed by: David Downey MD 02/26/2025 05:02 PM EDT RP Dictated By: David Downey MD Signed By: <Electronically signed by David Downey MD in OV> 02/26/25 1702 DD/ 1640 TD/TT: 02/26/25 1650 Station Mechanic Helper: [facility] External Provider IMG CT PROCEDURES Final Result * (ABNORMAL) Lactic Acid (02/26/2025 4:34 PM EDT) Lactic Acid 4.0(HH) 0.5 - 2.0 mmol/L [facility] Comment:Critical value for t est(s): LACTA Results called to ruel back by: FARZANA Person calling: [email or web address] Date:02/26/25 Time:1654 02/26/2025 4:34 PM EDT 02/26/2025 4:37 PM EDT Generic External Data Provider LAB BLOOD ORDERAB LES Final Result [facility] 28 [place] [phone] * (ABNORMAL) High Sensitivity Troponin I (02/26/2025 4:06 PM EDT) Only the most recent of2 resultswithin the time period is included. TROPONIN I HIGH SENSITIVITY 34.7(H) <3.5 - 17.0 ng/L [facility] Comment:The Johnson high sens itivity Troponin-I results should beused in conjunction with other diagnostic information suchas ECG, clinical observations and information, and patientsymptoms to aid in the diagnosis of VT. 02/26/2025 4:06 PM EDT 02/26/2025 4:10 PM EDT us Generic External Data Provider LAB BLOOD ORDERAB LES Final Result Performing Organization Address [facility] Co de Phone Number [facility] [address] [place] [phone] * D Dimer High Sensitivity (02/26/2025 2:07 PM EDT) D Dimer High Sensitivity 482 NG/ML [facility] Comment:D-DIMER HS REFERENCE RANGENote: Our assay reports D-Dimer Units (D- DU).The cut-off value for venous thromboembolic (VTE) disease is230 ng/mL. This value has a very high negative predictivevalue when the patient has a low to moderate clinicalprobability of VTE.The upper limit of normal is 243 ng/mL. 02/26/2025 2:07 PM EDT 02/26/2025 2:12 PM EDT Generic External Data Provider LAB BLOOD ORDERAB LES Final Result Performing Organization Address [facility] de Phone Number [facility] [address] [place] [address] [phone] * TSH with Reflex to Free T4 (02/26/2025 1:15 PM EDT) Only the most recent of2 resultswithin the time period is included. TSH reflex Free T4 1.00 0.32 - 4.0 uIU/mL [facility] 02/26/2025 1:15 PM EDT 02/26/2025 1:18 PM EDT Generic External Data Provider LAB BLOOD ORDERAB LES Final Result Performing Organization Address [facility] Co de Phone Number [facility] [address] [place] [address] [phone] * (ABNORMAL) CBC auto differential (02/26/2025 1:15 PM EDT) White Blood Count 11.0(H) 4.8 - 10.8 X10*3/uL [facility] Red Blood Count 4.75 4.20 - 5.50 X10*6/uL [facility] Hemoglobin 13.3 12.0 - 16.0 g/dl [facility] Hematocrit 38.2 37.0 - 47.0 % [facility] Mean Corpuscular Volume 80.4 80.0 - 98.0 fL [facility] Mean Corpuscular Hemoglobin 28.0 27.0 - 33.0 pg [facility] Mean Corpuscular HGB Conc 34.8 31.0 - 35.0 g/dl [facility] Red Cell Distribution Width 13.2 11.0 - 16.0 % [facility] Platelet Count 234 160 - 400 X10*3/uL [facility] Mean Platelet Volume 9.3(L) 9.4 - 12.3 fL [facility] Neutrophils Percent Auto 85.7(H) 45 - 73 % [facility] Imm Gran Pct Auto 0.5(H) 0.0 - 0.4 % [facility] Lymphocytes Percent Auto 6.1(L) 20 - 40 % [facility] Monocytes Percent Auto 7.4 2 - 11 % [facility] Eosinophils Percent Auto 0.1 0 - 4 % [facility] Basophils Percent Auto 0.2 0 - 2 % [facility] NRBC Pct Auto 0.0 0.0 - 0.2 /100WBC [facility] Neutrophils Absolute Auto 9.4(H) 2.0 - 8.3 x10*3/uL [facility] Imm Gran Abs Auto 0.05(H) 0.00 - 0.03 X10*3/uL [facility] Lymphocytes Absolute Auto 0.7(L) 1.2 - 4.9 X10*3/uL [facility] Monocytes Absolute Auto 0.8 0.1 - 1.2 X10*3/uL [facility] Eosinophils Absolute Auto 0.0 0.0 - 0.4 X10*3/uL [facility] Basophils Absolute Auto 0.0 0.0 - 0.2 X10*3/uL [facility] NRBC Abs Auto 0.000 0.0 - 0.012 X10*3/uL [facility] 02/26/2025 1:15 PM EDT 02/26/2025 1:18 PM EDT Generic External Data Provider LAB BLOOD ORDERAB LES Final Result Performing Organization Address [facility] de Phone Number [facility] [address] [place] [address] [phone] * hCG, Total, Quantitative (02/26/2025 1:15 PM EDT) HCG Quantitative <2 mIU/mL [facility] Comment:Weeks post LMP Appro ximate hCG(Last Menstrual Period) Range (mIU/ml)3 - 4 weeks 9 - 1304 - 5 weeks 75 - 2,6005 - 6 weeks 850 - 20,8006 - 7 weeks 4000 - 100,2007 - 12 weeks 11,500 - 289,41239 - 16 weeks 18,300 - 137,11307 - 29 weeks (2nd trimester) 1,400 - 53,11548 - 41 weeks (3rd trimester) 940 - 60,000The Johnson B- hCG assay is used for the early detection ofpregnancy; it cannot be used to diagnose any conditionunrelated to . If a B-hCG level is not supportedby the clinical evidence, results should be confirmed by analternative method (qualitative urine hCG, for example). 02/26/2025 1:15 PM EDT 02/26/2025 1:18 PM EDT us Generic External Data Provider LAB BLOOD ORDERAB LES Final Result Performing Organization Address [facility] Co de Phone Number [facility] [address] [place] [address] [phone] * Magnesium (02/26/2025 1:15 PM EDT) [facility] Magnesium 2.1 1.6 - 2.6 mg/dL [facility] 02/26/2025 1:15 PM EDT 02/26/2025 1:18 PM EDT Generic External Data Provider LAB BLOOD ORDERAB LES Final Result [facility] [address] [place] [address] [phone] * (ABNORMAL) Hepatic Function Panel (02/26/2025 1:15 PM EDT) [facility] Bilirubin, Total 0.3 0.0 - 1.0 mg/dL [facility] Bilirubin, Direct 0.1 0.0 - 0.5 mg/dL [facility] Aspartate Amino Transferase 56(H) 5 - 31 U/L [facility] Alanine Aminotransferase 40(H) 0 - 31 U/L [facility] Total Protein 7.2 6.5 - 8.0 g/dL [facility] Albumin Level 4.4 3.5 - 5.0 g/dL [facility] Alkaline Phosphatase 72 39 - 117 U/L [facility] 02/26/2025 1:15 PM EDT 02/26/2025 1:18 PM EDT Generic External Data Provider LAB BLOOD ORDERAB LES Final Result [facility] [address] [place] [address] [phone] * (ABNORMAL) Basic Metabolic Panel (02/26/2025 1:15 PM EDT) [facility] Sodium 137 135 - 145 mmol/L [facility] Potassium 4.2 3.3 - 5.1 mmol/L [facility] Chloride 103 96 - 108 mmol/L [facility] Carbon Dioxide 24 22 - 29 mmol/L [facility] Anion Gap 14 12 - 20 [facility] Urea Nitrogen (BUN) 6(L) 9 - 16 mg/dL [facility] Creatinine, Serum 0.65 0.5 - 1.4 mg/dL [facility] Creatinine Clr Calc Pharmacy 128.2 [facility] Comment:Provided height and weight: 157.48 cm,82.4 kg.eGFR (calculated from the MDRD study equation) and eCrCl(calculated from the Cockcroft-Gault equation) are based ondifferent parameters and may not yield comparable results.If eCrCl result is absurd, please check patient'sheight/weight. Estimated Glomerular Filt Rate >60 [facility] Comment:Chronic Kidney Disea se: Estimated GFR < 60 mL/min/1.13v1Uqwhdi Kidney Disease: Estimated GFR < 15 mL/min/1.73m2 Glucose 193(H) 60 - 115 mg/dL [facility] Calcium 9.0 8.4 - 10.2 mg/dL [facility] 02/26/2025 1:15 PM EDT 02/26/2025 1:18 PM EDT us Generic External Data Provider LAB BLOOD ORDERAB LES Final Result [facility] [address] [place] [address] [phone] * POCT Rapid Influenza B JOHNSON ID NOW (02/26/2025 10:37 AM EDT) Influenza B Negative Negative, Indeterminate [facility] QC Media Lot # [id number] [facility] Lot# Expiration Date ,026 [facility] Swab 02/26/2025 10:3 7 AM EDT us Alissa May MD POINT OF CARE TEST ENTER/EDIT ORDERABLES Final Result Performing Organization Address City/[facility]/ZIP Co de Phone Number [facility] [address] [place] [address] [phone] * POCT Rapid Influenza A JOHNSON ID NOW (02/26/2025 10:36 AM EDT) Influenza A Negative Negative, Indeterminate [facility] QC Media Lot # [id number] [facility] Lot# Expiration Date ,026 [facility] Swab 02/26/2025 10:3 6 AM EDT Alissa May MD POINT OF CARE TEST ENTER/EDIT ORDERABLES Final Result Performing Organization Address [facility] Co de Phone Number [facility] [address] [place] [address] [phone] * POCT Rapid Covid-19 JOHNSON ID NOW (02/26/2025 10:35 AM EDT) Coronavirus Antigen PCR Negative Negative, Indeterminate, None Detected, Invalid, Specimen unsatisfactory for evaluation, Weakly Positive, 2+ QC Media Lot # [id number] Lot# Expiration Date ,016 Swab 02/26/2025 10:3 5 AM EDT Alissa May MD POINT OF CARE TEST ENTER/EDIT ORDERABLES Final Result * (ABNORMAL) Iron And Total Iron Binding Capacity (01/14/2025 3:55 PM EDT) Iron 35 30 - 160 mcg/dL [facility] Comment:Slight Hemolysis.Int erpret result with caution. Total Iron Binding Capacity 347 228 - 428 mcg/dL [facility] Percent Iron Saturation 10(L) 15 - 50 % [facility] Unsaturated Iron Binding 312 ug/dL [facility] Blood Venous blood specimen / Unknown 01/14/2025 3:55 PM EDT 01/14/2025 6:21 PM EDT Nicolette Brewsterlyn [facility] BLOOD ORDERABLES Leigh Ann l Result [facility] [address] [place] [address] [phone] * CBC (01/14/2025 3:55 PM EDT) White Blood Count 8.8 4.8 - 10.8 X10*3/uL [facility] Red Blood Count 4.69 4.20 - 5.50 X10*6/uL [facility] Hemoglobin 13.0 12.0 - 16.0 g/dl [facility] Hematocrit 39.6 37.0 - 47.0 % [facility] Mean Corpuscular Volume 84.4 80.0 - 98.0 fL [facility] Mean Corpuscular Hemoglobin 27.7 27.0 - 33.0 pg [facility] Mean Corpuscular HGB Conc 32.8 31.0 - 35.0 g/dl [facility] Red Cell Distribution Width 13.6 11.0 - 16.0 % [facility] Platelet Count 277 160 - 400 X10*3/uL [facility] Mean Platelet Volume 11.5 9.4 - 12.3 fL [facility] NRBC Pct Auto 0.0 0.0 - 0.2 /100WBC [facility] NRBC Abs Auto 0.000 0.0 - 0.012 X10*3/uL [facility] Blood Venous blood specimen / Unknown 01/14/2025 3:55 PM EDT 01/14/2025 6:21 PM EDT Nicolette Landa [facility] BLOOD ORDERABLES Leigh Ann l Result [facility] [address] [place] [address] [phone] * T4, Free (01/14/2025 3:55 PM EDT) Pathologist [facility] Free T4 (Free Thyroxine) 1.13 0.71 - 1.85 ng/dL [facility] 01/14/2025 3:55 PM EDT 01/14/2025 6:21 PM EDT [facility] BLOOD ORDERABLES Leigh Ann l Result Performing Organization Address [facility] Co de Phone Number [facility] [address] [place] [address] [phone] * Ferritin (01/14/2025 3:55 PM EDT) [facility] Ferritin 64 10 - 122 ng/mL [facility] Blood Venous blood specimen / Unknown 01/14/2025 3:55 PM EDT 01/14/2025 6:21 PM EDT [facility] BLOOD ORDERABLES Leigh Ann l Result Performing Organization Address [facility] Co de Phone Number [facility] [address] [place] [address] [phone] * POCT Hemoglobin (01/14/2025 3:29 PM EDT) [facility] Hemoglobin 12.7 12.0 - 15.0 QC Media Lot # [id number] Lot# Expiration Date ,706,523 Blood 01/14/2025 3:2 9 PM EDT [facility] POINT OF CARE TEST ENTER/ EDIT ORDERABLES Final Result * Pap Smear (09/17/2024 12:00 AM EDT) Swab Cervical swab / Unknown 09/17/2024 09/18/2024 10:15 AM EDT Narrative [facility] - 09/20/2024 10:37 AM EDT ----- ------- Name: Cande Hernandez Age/Sex: 29/F : 1995 Unit#: [id number] Attend Dr: Soniya Colon Re09/17/24 Status: DEP [facility] Disch: ----- ------- SPEC : [id number] RECD: 09/18/24-1015 STATUS: JOSE RAUL BURCIAGA NUM: [id number] [place]: 09/17/24-[address]: Soniya Colon ENTERED: 09/18/24-1040 SP TYPE: Pap Smr KEVIN DR: ORDERED: Pap Smear Interpretation Satisfactory for evaluation. Negative for intraepithelial lesion or malignancy. Mild inflammation. Clinical Information LMP: Unknown date Previous PAP test: Unknown date, WNL Material Received ThinPrep-Cervical ----- ------- Signed (signature on file) LEYDI Kyle (ASCP) 09/20/24 1037 ----- ------- END OF REPORT Soniya Colon MD LAB CYTOLOGY ORDERABLES Final Result [facility] [address] [place] [phone] from Last 3 Months or Most Recently Relevant to Health Maintenance Insurance [facility] - HSN PARTIAL (MEDICAID) Care Teams Data Developer Relationship Specialty Start Date End Date Soniya Colon MD [address] [place] [phone] PCP - General Family Medicine 01/19/21
--- OUTSIDE RECORDS SUMMARY | 2025-03-24 18:45 | XMS_ITS | Encounter Summary ---
Author Organization [facility] [facility] Address [facility] [employer] [facility] [address] [place] [phone] Phone Care Team Providers Care Bus And Trolley Dispatcher Name Role Phone Soniya Colon MD Primary Care Provider + Encounter Details Date Type Department Care Team (Late st Contact Info) Description 11/16/2023 Procedure Pass OR Admitting Dept - Virtual Department [address] [place] [address] Social History Tobacco Use Types Packs/Day Years [...] on filedocumented in this encounter Care Teams Bus And Trolley Dispatcher Relationship Specialty Start Date End Date Soniya Colon MD PCP - General Family Medicine 03/27/23 documented as of this encounter Additional Source Comments The information contained in this document represents components of the legal health record. It is not the complete legal health record.[facility]
--- OUTSIDE RECORDS SUMMARY | 2025-03-24 18:45 | XMS_ITS | Encounter Summary ---
Author Organization [employer] Address [address] [place] [address] 7 [place] [address] Care Team Providers Care Attendant Child Activity Name Role Phone Soniya Colon MD Primary Care Provider [phone] Reason for Visit * Reason Onset Date Comments Hospital Follow-up 03/06/2025 Encounter Details Date Type Department Care Team ([facility] st Contact Info) Description 03/06/2025 Telephone [facility] [address] [place], [place] [phone] Soniya Colon MD [address] [place], [place] [phone] Hospital Follow-up Social History Tobacco Use Types Packs/Day [...] encounter Miscellaneous Notes * Telephone Encounter - Ashley Loya - 03/06/2025 8:46 AM EDT Tc from pt requesting a HDF appt. Hospital: [facility] Date of admission: 02/26 Discharge date: 03/05 Diagnosed: pneumonia both lungs , glucose all over the place *Send message to [place] Clinical Care Coordinators Contact pt at [phone] documented in this encounter Plan of Treatment Upcoming Encounters Date Type Department Care Team ([facility] st Contact Info) Description 05/14/2025 4:00 PM EST Office Visit [facility] [address] [place] [address] Soniya Colon MD [address] [place] [address] 07/02/2025 3:30 PM EST Office Visit [facility] [address] [place], [place] [phone] [place], Katelyn, OD [address] [place] [address] documented as of this encounter Visit Diagnoses Not on filedocumented in this encounter Additional Health Concerns Assessment Noted Time PHQ-9 Depression Total Score: 4 03/25/20 24 2:12 PM EDT documented as of this encounter Care Teams Attendant Child Activity Relationship Specialty Start Date End Date Soniya Colon MD [address] [place], [place] [phone] PCP - General Family Medicine 01/19/21 documented as of this encounter
--- OUTSIDE RECORDS SUMMARY | 2025-03-24 18:45 | XMS_ITS | Encounter Summary ---
Author Organization [employer] Address [address] [place] [address] [address] [place] [address] Care Team Providers Care Ore Charger Name Role Phone Soniya Colon MD Primary Care Provider [phone] Encounter Details Date Type Department Care Team ([facility] st Contact Info) Description 01/22/2025 Orders Only [facility] [address] [place] [address] Soniya Colon MD [address] [place] [address] Weight gain (Primary Dx) Social History Tobacco [...] the past 12 months, has t he [employer], gas, oil or water company threatened to [...] Description 05/14/2025 4:00 PM EST Office Visit [facility] [address] [place] [address] Soniya Colon MD [address] [place] [address] 07/02/2025 3:30 PM EST Office Visit [facility] [address] [place] [address] Katelyn Borjas, LISSETH [address] [place] [address] Scheduled Orders Name Type Priority Associated Diagnoses [...] documented as of this encounter Care Teams Ore Charger Relationship Specialty Start Date End Date Soniya Colon MD [address] [place] [phone] PCP - General Family Medicine 01/19/21 documented as of this encounter
--- OUTSIDE RECORDS SUMMARY | 2025-03-24 18:45 | XMS_ITS | Encounter Summary ---
Author Organization [employer] Address [address] [place] [address] [address] [place] [address] Care Team Providers Care Refractive Surgeon Name Role Phone Soniya Colon MD Primary Care Provider [phone] Encounter Details Date Type Department Care Team (Late st Contact Info) Description 01/10/2023 Orders Only [facility] [address] [place] [address] [phone] Soniya Colon MD [address] [place] [address] [phone] Migraine without aura and with status migrainosus, [...] Description 05/14/2025 4:00 PM EST Office Visit [facility] [address] [place], [place] [phone] Soniya Colon MD [address] [place], [place] [phone] 07/02/2025 3:30 PM EST Office Visit [facility] [address] [place] [phone] Katelyn Borjas, OD [address] [place] [address] documented as of this encounter Visit Diagnoses Diagnosis Migraine without aura and with status migrainosus, not intractable- Primary documented in this encounter Care Teams Refractive Surgeon Relationship Specialty Start Date End Date Soniya Colon MD [address] [place] [address] PCP - General Family Medicine 01/19/21 documented as of this encounter
== END 2025-03-24 15:42 | disposition home or self-care (01) ==
LOC: HO.HHCX 15:41
PROVIDERS: PCP General Practice; Visit Provider General Practice
DX: Z87.01 Personal history of pneumonia (recurrent) (principal)
CPT/HCPCS: 71046

== ENCOUNTER → 2025-03-24 15:45 | Outpatient (BNV) | payer BC, SELFPAY | PROVIDERS: PCP General Practice; Visit Provider Radiology Diagnostic Radiology | DX: Z87.01 Personal history of pneumonia (recurrent) (principal) | CPT/HCPCS: 71046 ==

== ENCOUNTER 2025-03-31 13:45 | Emergency (ER) | payer BC, SELFPAY ==
--- NOTE | ~2025-03-31 | XR_ITS ---
EXAMINATION: XR CHEST CLINICAL INFORMATION: cough COMPARISON: March 24, 2025 TECHNIQUE: 2 views of the chest were obtained. FINDINGS: There is no pneumothorax. Lungs are clear. Heart size is within normal limits. There is no evidence of a pleural effusion. XR/XR chest 2V IMPRESSION: No acute disease, stable x-ray Electronically signed by: David Downey MD 03/31/2025 02:16 PM [facility] [place]
--- NOTE | 2025-03-31 13:47 | ECG_ITS ---
Test Reason : cp Blood Pressure : */* mmHG Vent. Rate : 96 BPM Atrial Rate : 96 BPM P-R Int : 138 ms QRS Dur : 84 ms QT Int : 362 ms P-R-T Axes : 62 50 37 degrees QTcB Int : 457 ms Normal sinus rhythm Normal ECG When compared with ECG of 27-Feb-2025 17:24, Nonspecific T wave abnormality has replaced inverted T waves in Inferior leads Referred By: Generic ED Physician Electronically Signed By: Shahzad Barksdale
[2025-03-31 13:51] VITALS: BP 130/80; PULSE 110; O2SAT 100
[2025-03-31 13:52] VITALS: BP 155/97; PULSE 94; RESP 24; TEMP 36.6; O2SAT 100; BMI 29.9
--- NOTE | 2025-03-31 13:52 | ED.GENADULT ---
HPI - General Adult General Chief complaint: Dyspnea Stated complaint: SOB, Chest pain Time Seen by Provider: 03/31/25 14:24 Source: patient Mode of arrival: ambulatory Limitations: no limitations History of Present Illness ED Provider: PILAR TORRES PA-C HPI narrative: 29 year old female with pmhx significant for asthma presents to the ED today for evaluation of shortness of breath x3 days. Reports recent admission to this facility for acute hypoxic respiratory failure secondary to pneumonia, admitted for a total of 9 days. She was discharged home on antibiotics. She had a follow up visit with her PCP 1 week ago where her albuterol was discontinued and she was started on symbicort. She also had a repeat chest xray which showed resolution of pneumonia. Initially she felt as though the symbicort was helping her shortness of breath however 3 days ago began developing a dry cough, wheezing, chest tightness, dry throat, and shortness of breath. Denies fever, chills, sore throat. Reports using her Symbicort once this morning without relief. 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 Related Data Home Medications ?Medication ?Instructions ?Recorded ?Confirmed multivitamin 1 tab PO DAILY 02/26/25 02/26/25 Previous Rx's ?Medication ?Instructions ?Recorded levofloxacin 750 mg tablet 750 mg PO Q24H 5 days #5 tabs 03/05/25 codeine 10 mg-guaifenesin 200 mg/5 10 ml PO Q6H PRN cough #473 mL 03/31/25 mL oral liquid prednisone 20 mg tablet 40 mg (2 x 20 mg) PO DAILY #10 tabs 03/31/25 Allergies Allergy/AdvReac Type Severity Reaction Status Date / Time terbinafine (TERBINAFINE) Allergy Severe ANAPHYLAXIS Verified 03/31/25 13:55 sulfamethoxazole (From Allergy Angioedema Verified 03/31/25 13:55 Bactrim) trimethoprim (From Bactrim) Allergy Angioedema Verified 03/31/25 13:55 Review of Systems Review of Systems: Yes all other systems are reviewed and are negative PMFSH Past Medical History Attestation statement: The following information was validated with the patient. Source: old records reviewed and nursing notes reviewed Medical History ETD (eustachian tube dysfunction) Menorrhagia Dermatitis Subacromial bursitis of left shoulder joint Rhabdomyolysis Fatty liver Pyelonephritis Encounter for screening examination for sexually transmitted disease Abnormal uterine bleeding Acute UTI (urinary tract infection) Low back pain, unspecified Advised about oral contraception Migraine without aura and with status migrainosus, not intractable Obesity, class 1 Gain of weight Right lower quadrant pain Panic attack Seasonal allergies Anxiety Von Willebrand disease, unspecified Contact dermatitis Kidney stones Surgical History History of esophagogastroduodenoscopy (EGD) Hx of cholecystectomy Family History Family History Mother Diabetes HTN (hypertension) Paternal Grandfather HTN (hypertension) Paternal Grandmother HTN (hypertension) Maternal Grandfather HTN (hypertension) Maternal Grandfather HTN (hypertension) Diabetes Maternal Grandmother HTN (hypertension) Social History Social History Household Members: Family Housing: House Alcohol intake: never Comment: low fall risk Patient Tobacco Use Status: Never used Tobacco service: No Current occupational status: employed and other 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 Skin: Warm, dry, intact. No rashes or lesions. Head: Normocephalic, atraumatic. EENT: Hearing is intact b/l. Conjunctiva clear. PERRLA. EOM intact. Moist mucous membranes.?Posterior oropharynx erythematous, no tonsillar exudates or peritonsillar masses, uvula midline, controlling secretions, speaking in complete sentences. Neck: Supple without LAD Cardiac: Chest wall symmetric. RRR Lungs: Normal respiratory effort without accessory muscle use, no tripoding, lung sounds diminished throughout, no wheezes or rhonchi Abdomen: Soft, non-tender, non-distended. No rebound tenderness or guarding. Positive BS x4. Ext: no pitting edema. no calf tenderness bilaterally. Neuro: AOx3. Normal speech. Ambulating with steady gait Course Course Course Narrative: Rapid medical examination performed in triage by Linda Gilliam PA-C: Patient is a 29 year old assigned female at presenting to the emergency department with shortness of breath and chest pain. Patient states that she was recently admitted for pneumonia + sepsis and was improving but it didn't resolve and is now going back to having shortness of breath. Detailed physical exam and review of systems are deferred to the senior ux developer. EKG, labs, chest imaging, and swabs ordered. Patient placed back in the waiting room pending room availability and results. Reevaluation(s) Reevaluation #1: 1658 --CBC without leukocytosis or left shift. No anemia, H and H stable. Chemistry without acute electrolyte abnormality requiring intervention. No RENETTA. Random glucose 105. Normal liver function. Troponin undetectable. EKG showing normal sinus rhythm, no acute ischemic changes or ST elevations. Negative COVID, flu. Chest x-ray shows resolution of prior pneumonia. No cardiomegaly. > patient medicated with albuterol, IV Solu-Medrol and IV magnesium with some improvement in symptoms. > on ambulatory O2, patient maintained 95-98% on room air however became quite tachycardic (130s-140s). Will add on D-dimer. > patient is stable at the end of my shift, sign out give to Hari SALGUERO, pending dimer and disposition. Reevaluation #2: The patient has seemed in sign-out at change of shift pending dimer and disposition. Her D-dimer was negative. On re-evaluation she has some faint wheezing. She is tachycardic to about 110 which is sinus and likely due to albuterol use. She is not hypoxic, her oxygen saturation is 98 99% at rest. The patient is stable for discharge with prednisone. She is requesting something for cough and we discussed guaifenesin with codeine for bedtime use Time: 17:50 Medications Administered Discontinued Medications Generic Name Dose Route Start Last Admin Trade Name Jhonny PRN Reason Stop Dose Admin Albuterol Sulfate 5 mg/ 0 mg 03/31/25 14:23 03/31/25 14:26 Albuterol/Ipratropium 3 ml INHALE 03/31/25 14:24 1 each ONCE ONE Administration Magnesium Sulfate 2 gm in 50 mls @ 150 mls/hr 03/31/25 14:39 03/31/25 16:45 Magnesium Sulfate/H2o IV 03/31/25 14:58 Infused ONCE ONE Infusion Ibuprofen 600 mg 03/31/25 17:49 03/31/25 17:56 Ibuprofen 600 Mg Tablet PO 03/31/25 17:50 600 mg ONCE ONE Administration Methylprednisolone Sodium Succinate 80 mg 03/31/25 14:39 03/31/25 16:15 Methylprednisolone Sod Succ 125 Mg/2 Ml Vial IVPUSH 03/31/25 14:40 80 mg ONCE ONE Administration Medical Decision Making Medical Decision Making [facility] Narrative: 29 year old female with pmhx significant for asthma presents to the ED today for evaluation of shortness of breath x3 days. Differential diagnosis includes anemia, electrolyte abnormality, strep throat, viral syndrome, bronchitis, pneumonia, asthma exacerbation, pulmonary embolism. Less likely arrhythmia, ACS, pericarditis, pleural effusion, pericardial effusion, mono. Plan for viral/strep swabs, cxr, ekg, labs, ed bronch protocol, IV meds, re-evaluation. Differential Diagnosis Differential Diagnoses: The differential diagnosis associated with the presentation includes as above. Admission/Observation Consideration of admission/observation: Escalation of care including admission/observation considered Lab Data [facility] Lab Attestation statement: I reviewed the patient's lab results. as above. 03/31/25 14:04 03/31/25 14:04 Labs: Lab Results 03/31/25 03/31/25 03/31/25 Range/Units 14:04 15:49 17:10 WBC 8.1 (4.8-10.8) X10*3/uL RBC 4.87 (4.20-5.50) X10*6/uL Hgb 13.1 (12.0-16.0) g/dl Hct 40.1 (37.0-47.0) % MCV 82.3 (80.0-98.0) fL MCH 26.9 L (27.0-33.0) pg MCHC 32.7 (31.0-35.0) g/dl RDW 14.5 (11.0-16.0) % Plt Count 259 (160-400) X10*3/uL MPV 9.3 L (9.4-12.3) fL Immature Gran % (Auto) 0.5 H (0.0-0.4) % Neut % (Auto) 56.1 (45-73) % Lymph % (Auto) 21.5 (20-40) % Frio % (Auto) 13.1 H (2-11) % Eos % (Auto) 8.1 H (0-4) % Baso % (Auto) 0.7 (0-2) % Lymph # (Auto) 1.8 (1.2-4.9) X10*3/uL Frio # (Auto) 1.1 (0.1-1.2) X10*3/uL Eos # (Auto) 0.7 H (0.0-0.4) X10*3/uL Baso # (Auto) 0.1 (0.0-0.2) X10*3/uL Abs Immat Gran (auto) 0.04 H (0.00-0.03) X10*3/uL Absolute Neuts (auto) 4.6 (2.0-8.3) x10*3/uL Absolute Nucleated RBC 0.000 (0.0-0.012) X10*3/uL Nucleated RBC % (auto) 0.0 (0.0-0.2) /100WBC D-Dimer High Sensitivty < 150 NG/ML Sodium 139 (135-145) mmol/L Potassium 3.4 (3.3-5.1) mmol/L Chloride 108 (96-108) mmol/L Carbon Dioxide 23 (22-29) mmol/L Anion Gap 11 L (12-20) BUN 10 (9-16) mg/dL Creatinine 0.64 (0.5-1.4) mg/dL Estim Creat Clear Calc 143.0 Estimated GFR > 60 Random Glucose 105 (60-115) mg/dL Calcium 9.2 D (8.4-10.2) mg/dL Magnesium 2.0 (1.6-2.6) mg/dL Total Bilirubin 0.4 (0.0-1.0) mg/dL AST 19 (5-31) U/L ALT 28 (0-31) U/L Alkaline Phosphatase 86 (39-117) U/L Troponin I High Sens < 2.7 D (<3.5-17.0) ng/L Total Protein 7.0 (6.5-8.0) g/dL Albumin 4.5 (3.5-5.0) g/dL COVID-19 (BRYAN) Negative (Negative) COVID-19 Clin Com See Note Influenza Type A (GENTRY) Negative (Negative) Influenza Type B (GENTRY) Negative (Negative) Influenza A & B Note See Note S. pyogenes GrpA GENTRY Negative (Negative) Independent Interpretation I performed an independent interpretation of an: EKG and Plain X-Ray Interpretation: EKG showing normal sinus rhythm, rate of 96 beats per minute, no acute ischemic changes or ST elevations Chest x-ray without focal infiltrate or consolidation Radiology Impression Discussion of test interpretation with radiology: I have reviewed the radiologist's reading. Radiologist Impression: Procedure(s): XR chest 2V Accession Number(s): [id number] cc: Linda Gilliam; Gia Colon Reason for Exam: cough EXAMINATION: XR CHEST CLINICAL INFORMATION: cough COMPARISON: March 24, 2025 TECHNIQUE: 2 views of the chest were obtained. FINDINGS: There is no pneumothorax. Lungs are clear. Heart size is within normal limits. There is no evidence of a pleural effusion. XR/XR chest 2V IMPRESSION: No acute disease, stable x-ray Electronically signed by: David Downey MD 03/31/2025 02:16 PM [facility] External Record Review External record reviewed: Inpatient record Prescription Management I considered prescription management with: Other (prednisone) Chronic Conditions Patient?s care impacted by: Other (asthma) Social Determinants Patient?s care significantly limited by Social Determinants of Health including: Other Social Determinant of Health Critical Care Time Critical Care Time Critical Care Time: Yes Total Critical Care Time: 31 Attestation: Critical care time in the amount of 31 minutes has been provided to the patient in terms of direct patient care, frequent reevaluation, review and interpretation of medical data and results, and management of potentially life-threatening conditions. This is all outside of any medical procedures. Discharge Plan Discharge Clinical Impression: Asthma exacerbation Patient Disposition: Home, Self-Care Instructions: Asthma (ED) Additional Instructions: Your workup in the ER today was reassuring. This includes your chest x-ray, labs, EKG. You did not have any pneumonia today. I recommend taking prednisone as prescribed. You may use the guaifenesin with codeine up to every 6 hours, but it will likely make you drowsy and I recommend using it before bedtime. Do not drink alcohol or drive after taking this Follow up with your primary doctor, return for new or worsening symptoms Prescriptions: New codeine-guaifenesin 10-200 mg/5 mL liquid 10 ml PO Q6H PRN (Reason: cough) Qty: 473 0RF prednisone 20 mg tablet 40 mg PO DAILY Qty: 10 0RF No Action multivitamin Tablet 1 tab PO DAILY levofloxacin 750 mg Tablet 750 mg PO Q24H 5 Days Qty: 5 0RF Stand Alone Forms: Work/School Release Interventions: ED Discharge Assessment Last Done: 03/31/25 18:01 Discharge Date/Time: 03/31/25 18:13 Print Language: Bengali
[2025-03-31 14:14] LABS: MANUAL DIFF FLAG NO
[2025-03-31 14:16] LABS: Hematocrit 40.1 % (37.0-47.0); Hemoglobin 13.1 g/dl (12.0-16.0); Imm Gran Abs Auto 0.04 X10*3/uL (0.00-0.03); Imm Gran Pct Auto 0.5 % (0.0-0.4); Lymphocytes Absolute Auto 1.8 X10*3/uL (1.2-4.9); Mean Corpuscular HGB Conc 32.7 g/dl (31.0-35.0); Mean Corpuscular Hemoglobin 26.9 pg (27.0-33.0); Mean Corpuscular Volume 82.3 fL (80.0-98.0); NRBC Abs Auto 0.000 X10*3/uL (0.0-0.012); NRBC Pct Auto 0.0 /100WBC (0.0-0.2); Platelet Count 259 X10*3/uL (160-400); Red Blood Count 4.87 X10*6/uL (4.20-5.50); White Blood Count 8.1 X10*3/uL (4.8-10.8)
[2025-03-31 14:26] VITALS: PULSE 94; RESP 28; O2SAT 100
[2025-03-31] MEDS: Albuterol Sulfate 5 MG, Albuterol/Iprat 2.5/0.5MG 3 ML 3 ML INHALE (14:26)
[2025-03-31 14:31] LABS: Alanine Aminotransferase 28 U/L (0-31); Albumin Level 4.5 g/dL (3.5-5.0); Alkaline Phosphatase 86 U/L (39-117); Anion Gap 11 (12-20); Aspartate Amino Transferase 19 U/L (5-31); Blood Urea Nitrogen 10 mg/dL (9-16); Calcium 9.2 mg/dL (8.4-10.2); Carbon Dioxide 23 mmol/L (22-29); Chloride 108 mmol/L (96-108); Creatinine Clr Calc Pharmacy 143.0; Estimated Glomerular Filt Rate > 60; Magnesium 2.0 mg/dL (1.6-2.6); Potassium 3.4 mmol/L (3.3-5.1); Sodium 139 mmol/L (135-145); Total Protein 7.0 g/dL (6.5-8.0)
[2025-03-31 14:40] LABS: Troponin-I High Sensitivity < 2.7 ng/L (<3.5-17.0)
--- NOTE | 2025-03-31 15:48 | PC.NURSE ---
asssumed care of patient. per prior RN difficult IV placement TW attempted unable to obtain IV
[2025-03-31] MEDS: Magnesium Sulfate/H2O 2 GM/50 ML PIGGYBACK IV (16:15)
[2025-03-31 16:19] LABS: COVID-19 Test Negative (Negative); IDNOW Serial# 08D9AD1C; IDNOW Serial# 55D5AD1C; IDNOW Serial# 58CA691E; Influenza B2 Negative (Negative); Strep A Nucleic Acid Negative (Negative)
[2025-03-31 16:24] VITALS: BP 123/84; PULSE 112; RESP 18; O2SAT 98
[2025-03-31 17:41] VITALS: BP 120/83; PULSE 104; RESP 12; TEMP 36.9; O2SAT 98
[2025-03-31 17:41] LABS: D Dimer High Sensitivity < 150 NG/ML
[2025-03-31 18:01] VITALS: BP 120/83; PULSE 104; RESP 12; TEMP 36.9; O2SAT 98
== END 2025-03-31 18:13 | disposition home or self-care (01) ==
PROVIDERS: Physician Assistant Medical; Emergency Provider Emergency Medicine; PCP General Practice
DX: J45.901 Unspecified asthma with (acute) exacerbation (principal); R00.0 Tachycardia, unspecified; Z87.01 Personal history of pneumonia (recurrent); Z87.440 Personal history of urinary (tract) infections; Z87.442 Personal history of urinary calculi; Z79.899 Other long term (current) drug therapy
CPT/HCPCS: 36415; 71046; 80053; 83735; 84484; 85025; 85379; 87502; 87635; 87651; 93005; 94640; 96365; 96375; 99284; 99285; J2919; J3475

== ENCOUNTER → 2025-03-31 13:47 | Outpatient (BNV) | payer BC, SELFPAY | PROVIDERS: Emergency Provider Emergency Medicine; PCP General Practice; Visit Provider Internal Medicine Cardiovascular Disease | DX: R07.9 Chest pain, unspecified (principal) | CPT/HCPCS: 93010 ==

== ENCOUNTER → 2025-03-31 13:53 | Outpatient (BNV) | payer BC, SELFPAY | PROVIDERS: Emergency Provider Emergency Medicine; PCP General Practice; Visit Provider Radiology Diagnostic Radiology | DX: R05.9 Cough, unspecified (principal) | CPT/HCPCS: 71046 ==

== ENCOUNTER 2025-04-04 10:28 | Outpatient (AMB) | payer BC, SELFPAY ==
--- OUTSIDE RECORDS SUMMARY | 2025-03-31 12:00 | XMS_ITS | Encounter Summary ---
Author Organization [employer] Address [address] [place] [address] 7 [place] [address] Care Team Providers Care Construction Teacher Name Role Phone Soniya Colon MD Primary Care Provider [phone] Reason for Referral * Imaging (Urgent) - Pending Review Specialty Diagnoses / Procedures Referred By Izaiah mcleod Referred To Contact Radiology Diagnoses SOB (shortness of breath) Procedures CT Chest w/o Contrast Meri Haque DO [address] [place] [address] Phone: tel: fax: [address] Phone: tel: fax: Referral ID Status Reason Start Date Expiration Date V isits Requested Visits Authorized [id number] Pending Review 03/31/2025 03/31/2026 1 1 * Imaging (Urgent) - Authorized Specialty Diagnoses / Procedures Referred By Izaiah mcleod Referred To Contact Cardiology Diagnoses SOB (shortness of breath) Procedures Transthoracic Echo (TTE) Complete Meri Haque DO [address] [place] [address] Phone: tel: fax: [address] Phone: tel: fax: Referral ID Status Reason Start Date Expiration Date Visits Requested Visits Authorized [id number] Authorized Perform Procedure 03/31/2025 03/31/2026 1 1 * PFT (Routine) - Authorized Specialty Diagnoses / Procedures Referred By Izaiah t Referred To Contact Diagnoses SOB (shortness of breath) Procedures Pulmonary Function Test Meri Haque DO [address] [place] [address] Phone: tel: fax: [address] Phone: tel: fax: Referral ID Status Reason Start Date Expiration Date V isits Requested Visits Authorized [id number] Authorized 03/31/2025 03/31/2026 1 1 Encounter Details Date Type Department Care Team (Late st Contact Info) Description 03/31/2025 12:00 PM EST Office Visit [facility] [address] [place] [address] Meri Haque DO [address] [place] [address] SOB (shortness of breath) (Primary Dx) Social History Tobacco Use Types [...] the past 12 months, has t he aiHit, gas, oil or water company threatened to [...] Sign Reading Time Taken Comments Blood Pressure 130/78 03/31/2025 12:08 PM EST Pulse 100 03/31/2025 12:08 PM EST Temperature - - Respiratory Rate 20 03/31/2025 12:08 PM EST Oxygen Saturation 96% 03/31/2025 12:08 PM EST Inhaled Oxygen Concentration - - Weight 84 kg (185 lb 2 oz) 03/31/2025 12:[address] Height 157.5 cm (5' 2 ) 03/31/2025 12:08 PM EST Body Mass Index 33.86 03/31/2025 12:08 PM EST documented in this encounter Progress Notes * Meri Haque, DO - 03/31/2025 12:00 PM EST SUBJECTIVE Cande Hernandez is a 29 y.o. female who presents for Sick Visit. She was seen in [place] on 10.1.25 c/o cough and SOB. She had tachycardia and significant wheezing and rhonchi on exam. She was treated with a duo-neb and given prednisone and albuterol. She had CXR whichshowed SARBJIT and LLL PNA with possible RML PNA and advised go to ED. In ED, she met criteria for sepsis and was started-on IVF and IV abx. She had a prolonged hospitalization d/t persistent EVANS and hypoxia. She was treated with levaquin, high-dose steroids, and duo-nebs. She was eventually able to be weaned-off O2 and she was discharged-home. She had HDF with her PCP last week and reported ongoing SOB. She was sent for repeat CXR and started-on symbicort BID and advised to call pulm for a sooner appt. Her CXR showed resolution of the PNA. She called this morning reporting similar symptoms started over the weekend and that her pumps weren't working. She says that she started with dry cough, chest tightness, wheezing and SOB which have progressively worsened over the weekend. She says that she can't lie flat without feeling like something was pressing on her chest and had to sleep sitting up last night. She feels a little nasal congestion and burning in her nose which she spoke with her PCP about last week. She denies any rhinorrhea, DALTON, ear pain or throat pain. She has not had any fevers. No leg swelling. She has been using her symbicort as prescribed as well as albuterol but neither have relieved her symptoms. She last used pump at 8:00am. She says she contacted pulm last week and was told that they needed to review her referral and she hasn't been contacted with an appt. She has no h/o asthma. She denies any h/o of cigarette smoking or vaping. Review of Systems Constitutional: Negative for activity change, appetite change, chills and unexpected weight change. HENT: Positive for congestion, postnasal drip, rhinorrhea and sinus pain. Negative for ear pain andsore throat. Respiratory: Positive for cough, chest tightness, shortness of breath and wheezing. Cardiovascular: Negative for chest pain, palpitations and leg swelling. Gastrointestinal: Negative for abdominal pain, diarrhea, nausea and vomiting. Neurological: Negative for weakness and headaches. Patient Active Problem List Diagnosis Anxiety Contact dermatitis Environmental and seasonal allergies Panic attack Right lower quadrant pain Abdominal pain Class 1 obesity Von Willebrand disease (CMS/HCC) (HCC) Migraine without aura and with status migrainosus, not intractable General counselling and advice on contraception Low back pain at multiple sites Frequently sick Other fatigue History of mycoplasma pneumonia Prediabetes Allergies Allergen Reactions Black [place] Flavoring Agent (Non-Screening) Anaphylaxis Sulfamethoxazole Anaphylaxis Trimethoprim Anaphylaxis Sulfamethoxazole-Trimethoprim Hives Other reaction(s): Terbinafine Other Reaction(s): Terbinafine Terbinafine OBJECTIVE Visit Vitals BP 130/78 (BP Location: Left arm, Patient Position: Sitting, BP Cuff Size: Adult) Pulse 100 Resp 20 Ht 5' 2 (1.575 m) Wt 185 lb 2 oz (84 kg) LMP 02/28/2025 (Exact Date) SpO2 96% BMI 33.86 kg/m?? OB Status Having periods Smoking Status Never BSA 1.92 m?? Physical Exam Constitutional: General: She is not in acute distress. Appearance: Normal appearance. HENT: Nose: Congestion present. Mouth/Throat: Pharynx: Posterior oropharyngeal erythema present. No oropharyngeal exudate. Cardiovascular: Rate and Rhythm: Normal rate and regular rhythm. Heart sounds: Normal heart sounds. No murmur heard. Pulmonary: Effort: Pulmonary effort is normal. Tachypnea present. No accessory muscle usage or respiratory distress. Breath sounds: Examination of the left-lower field reveals decreased breath sounds and wheezing. Decreased breath sounds and wheezing present. No rhonchi. Comments: Speaking in full sentences without difficulty. Treated with duoneb with resolution of wheezing and improved aeration; no subjective improvement. Musculoskeletal: Cervical back: Neck supple. No tenderness. Lymphadenopathy: Cervical: No cervical adenopathy. Neurological: General: No focal deficit present. Mental Status: She is alert and oriented to person, place, and time. Cranial Nerves: No cranial nerve deficit. Motor: No weakness. Gait: Gait normal. Psychiatric: Mood and Affect: Mood normal. Assessment/Plan Diagnoses and all orders for this visit: SOB (shortness of breath) Recurrent sx, with recent h/o multifocal PNA, treated with duo-neb with continued chest tightness and SOB -initially referred for evaluation with CXR and CT chest, but given continued symptoms feel that she needs further eval and mgmt in ED, she agrees with recommendation -Red Team RN contacted EMS for transport -spoke with [facility] triage of pt's arrival -referred for ECHO and PFTs -will have [place] contact pulm for RACHEL eval --Follow-up with PCP after ED visit-- Current Outpatient Medications: acetaminophen (Tylenol) 500 MG tablet, Take 2 tablets by mouth in the morning and 2 tablets at noonand 2 tablets in the evening and 2 tablets before bedtime., Disp: , Rfl: albuterol 108 (90 Base) MCG/ACT inhaler, Inhale 2 puffs every 4 (four) hours., Disp: 18 g, Rfl: 1 Alcohol Swabs 70 % pads, Use 1 alcohol swab to test blood sugar once daily, Disp: 100 each, Rfl: 3 Blood Glucose Monitoring Suppl (ONE TOUCH ULTRA 2) w/Device kit, Use to test blood sugar once daily, Disp: 1 kit, Rfl: 0 budesonide-formoterol (Symbicort) 160-4.5 MCG/ACT inhaler, Inhale 2 puffs in the morning and at bedtime. Rinse mouth with water after use to reduce aftertaste and incidence of candidiasis. Do not swallow., Disp: 1 each, Rfl: 11 glucose blood (OneTouch Ultra) test strip, Use one strip to test blood sugar once daily, Disp: 100 each, Rfl: 3 Multiple Vitamin (multivitamin) tablet, Take 1 tablet by mouth Once per day., Disp: , Rfl: OneTouch UltraSoft 2 Lancets misc, 1 Lancet Once per day., Disp: 100 each, Rfl: 3 SUMAtriptan (Imitrex) 50 MG tablet, TAKE 1 TABLET BY MOUTH EVERY 2 HOURS NEEDED FOR MIGRAINE HEADACHE DO NOT EXCEED 2 DOSES/24 HRS, Disp: , Rfl: No current facility-administered medications for this visit. Scribe Attestation: I, Laurent Bartlett, am serving as a scribe to document services personally performed by Meri Tristan, based on the patient's response to questions by provider and provider's statements to me. 03/31/25 1:48 PM Physicians Attestation: I, Meri Haque DO, have reviewed the information by the scribe, Laurent Bartlett, for accuracy and agree with its content. documented in this encounter Plan of Treatment Upcoming Encounters Date Type Department Care Team (Late st Contact Info) Description 05/14/2025 4:00 PM EST Office Visit [facility] [address] [place], [place] [phone] Soniya Colon MD [address], [place] [phone] 07/02/2025 3:30 PM EST Office Visit [facility] [address] [place], [place] [phone] Katelyn Borjas, OD [address] [place] [address] Scheduled Orders Name Type Priority Associated Diagnoses Order Schedule XR Chest 2 Views Imaging STAT SOB (shortness of breath) Expected: 03/31/2025, Expires: 03/31/2026 Pulmonary Function Test PFT Routine SOB (shortness of breath) Expected: 03/31/2025, Expires: 09/28/2025 Transthoracic Echo (TTE) Complete Echocardiography Urgent SOB (shortness of breath) Expected: 03/31/2025 (Approximate), Expires: 03/31/2027 CT Chest w/o Contrast Imaging Urgent SOB (shortness of breath) Expected: 03/31/2025, Expires: 03/31/2026 documented as of this encounter Visit Diagnoses Diagnosis SOB (shortness of breath)- Primary Shortness of breath documented in this encounter Administered Medications Inactive Administered Medications - up to 3 most recent administrations Medication Order MAR Action Action Date Dose Rate Site ipratropium-albuterol (Duo-Neb) 0.5-2.5 mg/3 mL nebulizer solution 3 mL 3 mL, Nebulization, Once, On 03/31/25 at 1245, For 1 doseIndications:SOB (shortness of breath) Given 03/31/2025 12:45 PM EST 3 mL documented in this encounter Additional Health Concerns Assessment Noted Time PHQ-9 Depression Total Score: 10 025 3:23 PM EDT documented as of this encounter Care Teams Construction Teacher Relationship Specialty Start Date End Date Soniya Colon MD [address] [place] [address] PCP - General Family Medicine 01/19/21 documented as of this encounter
[2025-04-04 10:42] VITALS: BP 110/80; PULSE 75; O2SAT 98; BMI 33.3
--- NOTE | 2025-04-04 10:42 | A.OFFVIS_ITS ---
Vital Signs 04/04/25 10:42 Height 5 ft 2 in Weight 181 lb 14.102 oz BMI 33.3 BP 110/80 Blood Pressure Location Lt brachial Position Sitting Pulse 75 Pulse Source Pulse Oximeter Pulse Oximetry (%) 98 Oxygen Delivery Method Room Air Intake Visit Reasons: Mycoplasma Pneumonia Supervisor Backfilling Required: No Accompanied by: Self / Same As Patient Allergies terbinafine (TERBINAFINE) Allergy (Severe, Verified 04/04/25 10:43) ANAPHYLAXIS sulfamethoxazole (From Bactrim) Allergy (Verified 04/04/25 10:43) Angioedema trimethoprim (From Bactrim) Allergy (Verified 04/04/25 10:43) Angioedema HPI Comments Details: The patient is a 29 year woman previously healthy presenting with worsening respiratory symptoms cough. She came to the ER. She was found to have and abnormal chest x-ray and ultimately had a CT scan of the chest which was personally by me. Significant airspace disease and consolidations bilaterally left more than right. The patient is placed on oxygen and oxygen requirements have not been going up. She has been using the incentive spirometer and also has not Aerobika. She has been using it regularly. She was started on Solu- Medrol today and continues on azithromycin and ceftriaxone for the community- acquired pneumonia. There is a family history of asthma although she has never been diagnosed with asthma. She is getting respiratory treatments regularly. At this time will going to continue with the current respiratory regimen will request additional blood work. 04/04/2025 the patient is here for a hospital follow-up visit. She was treated for the community-acquired pneumonia and severe asthma exacerbation. She has been discharged now for about a month. She is having hard time with the breathing. Still having shortness breath chest tightness. She is currently on 40 mg of prednisone. She has been using Symbicort. She also has a nebulizer that she has barring. The patient is still having hard time with the breathing. In the office she still has wheezing. I did give her 2 Xopenex treatments. In addition to that we did give her Solu-Medrol 125 mg IM x1 and she will taper down the prednisone. We did review her blood work. In addition to having the positive respiratory panel for the mycoplasma the patient also had significant eosinophilia up to 700. Therefore the patient has significant eosinophilic asthma along with her significant recent infection. She did have an x-ray which I personally reviewed demonstrating interval resolution of the airspace disease which is reassuring. Will go ahead and optimize her respiratory therapy by adding Spiriva to her Symbicort which she can use on a maintenance dose. And she needs to start using her nebulizer more often 2 to 3 times a day. The patient also be a great candidate for Fasenra. Will go ahead and request a prescription at this time to try to get her off the prednisone that she has been on now for couple months. [facility] Medical History (Updated 04/06/25 @ 16:02 by Ruben Brown MD) Asthma ETD (eustachian tube dysfunction) Menorrhagia Dermatitis Subacromial bursitis of left shoulder joint Rhabdomyolysis Fatty liver Pyelonephritis Encounter for screening examination for sexually transmitted disease Abnormal uterine bleeding Acute UTI (urinary tract infection) Low back pain, unspecified Advised about oral contraception Migraine without aura and with status migrainosus, not intractable Obesity, class 1 Gain of weight Right lower quadrant pain Panic attack Seasonal allergies Anxiety Von Willebrand disease, unspecified Contact dermatitis Kidney stones Surgical History History of esophagogastroduodenoscopy (EGD) Hx of cholecystectomy Family History Mother Diabetes HTN (hypertension) Paternal Grandfather HTN (hypertension) Paternal Grandmother HTN (hypertension) Maternal Grandfather HTN (hypertension) Maternal Grandfather HTN (hypertension) Diabetes Maternal Grandmother HTN (hypertension) Social History Household Members: Family Housing: House Alcohol intake: never Comment: low fall risk Patient Tobacco Use Status: Never used Tobacco service: No Current occupational status: employed and other 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 Review of Systems Const Denies fever(s) Eyes Reports no additional complaints ENT Denies sore throat Card Denies chest pain and Reports dyspnea on exertion Resp Reports chest congestion, Reports cough, Reports dyspnea on exertion and Reports wheezing GI Reports no additional complaints Musc Reports no additional complaints Skin/Breast Denies rash Neuro Reports no additional complaints Endo Reports no additional complaints Alexy/Lymph Reports no additional complaints Aller/Immun Reports wheezing Physical Exam Vital Signs: Last Vital Signs Pulse 75 04/04/25 10:42 BP 110/80 04/04/25 10:42 Pulse Ox 98 04/04/25 10:42 Oxygen Delivery Method Room Air 04/04/25 10:42 BMI result Body Mass Index 33.3 Last Vital Signs Temp 98.7 F 03/02/25 07:29 Pulse 100 03/02/25 07:57 Resp 15 03/02/25 07:57 BP 113/72 03/02/25 07:29 Pulse Ox 95 03/02/25 07:29 O2 Del Method Oxymask 03/02/25 07:29 O2 Flow Rate 5 03/02/25 07:29 BMI result Body Mass Index 35.4 Const General: healthy appearing, comfortable, no acute distress, alert and awake Nutritional Appearance: well nourished Orientation/consciousness: patient oriented x3 HEENT Head: Yes normocephalic and Yes atraumatic Eyes Eyelids: Yes eyelids normal Conjunctivae: conjunctivae normal Sclerae: sclerae normal Corneas: corneas normal Pupils: Equal, round and reactive pupils present EOM: EOMs intact bilaterally Neck Neck: Yes full ROM Resp Effort & Inspection: normal respiratory effort Auscultation: rhonchi, wheezes and diminished lung sounds Cardio Rate: regular rate Rhythm: regular rhythm GI Inspection: No distended Palpation (GI): Soft to palpation, not firm, nontender, no guarding and not rigid Skin General skin exam: elasticity normal Neuro General: patient oriented x3 Cranial nerves: Yes Equal, round and reactive pupils present and Yes Bilaterally intact EOM present Cognition (Neuro): normal cognition Office Procedures Nebulizer Treatment Nebulizer Treatment 52110-Balnszzlr/MDI RX initial, or Nebulizer Subsequent Treatment Office Meds methylprednisolone sod suc(PF) 125 mg/2 mL solution for injection Performing Provider: Ruben Brown MD [place] [facility] [place] [facility] Administered by: Cassie Moran LPN on 04/04/25 14:01 Dose Route Admin Location Dispensed Lot Number Expiration Date NDC Flatbed Press Operator 125 mg IM R buttock 1 ea [id number] 06/28/27 8700-5761-91 [employer] Total Dispensed Waste 1 ea 0 % levalbuterol HCl 1.25 mg/3 mL solution for nebulization Performing Provider: Ruben Brown MD Performing Location[place] [facility] [place] [facility] Administered by: Cassie Moran LPN on 04/04/25 14:01 Dose Route Admin Location Dispensed Lot Number Expiration Date NDC Flatbed Press Operator 1.25 mg inhalation 3 mL [id number] 07/26/26 71510-410-95 [employer] Assessment & Plan Assessment & Plan (1) Asthma: Code(s): J45.909 - Unspecified asthma, uncomplicated Category: Medical Qualifiers: Asthma severity: moderate Asthma persistence: persistent Asthma complication type: with acute exacerbation Qualified Code(s): J45.41 - Moderate persistent asthma with (acute) exacerbation (2) Community acquired pneumonia: Code(s): J18.9 - Pneumonia, unspecified organism Category: Medical Qualifiers: Laterality: unspecified laterality Qualified Code(s): J18.9 - Pneu monia, unspecified organism Plan continue Symbicort start Spiriva start Doxycycline Nebulizer Solumedrol 125mg IM then continue prednisone taper Bloodwork and allergy tesing later F/u 2 weeks Orders: Orders AMB Nebulizer Treatment 04/04/25 J45.909 - Unspecified asthma, uncomplicated AMB Methylprednisolone Sod Succ Injection 04/04/25 J45.909 - Unspecified asthma, uncomplicated Medications: New tiotropium bromide 2.5 mcg/actuation (Spiriva Respimat) 2 puffs inhalation DAILY 1 ea 11RF 30 days doxycycline hyclate 100 mg PO BID 20 caps 0RF 10 days prednisone PO daily; Take 3 tabs x 3 days, then 2 tabs daily x 3 days, then 1 tab x 3 days to complete. 18 tabs 0RF 9 days albuterol sulfate 2.5 mg (3 mL) inhalation Q4H PRN 180 mL 11RF shortness of breath or wheezing 30 days Coding Level of Care Code Est Pt Level 5 (54314) Diagnoses Moderate persistent asthma with acute exacerbation J45.41 Asthma severity: moderate Asthma persistence: persistent Asthma complication type: with acute exacerbation Community acquired pneumonia, unspecified laterality J18.9 Laterality: unspecified laterality CPT Codes Nebulizer Treatment - Nebulizer Treatment, initial or subsequent: 54197- Nebulizer/MDI RX initial, or Nebulizer Subsequent Treatment ([id number]) Time Spent (min) 45
--- OUTSIDE RECORDS SUMMARY | 2025-04-04 12:23 | XMS_ITS | Encounter Summary ---
Author Organization [employer] Address [address] [place] [address] 7 [place] [address] Care Team Providers Care Rubber Goods Finisher Name Role Phone Soniya Colon MD Primary Care Provider [phone] Reason for Referral * Consultation (Routine) - Closed Specialty Diagnoses / Procedures Referred By Izaiah mcleod Referred To Contact Urology Diagnoses Kidney stone Soniya Colon MD [address] [place] [address] Phone: tel: fax: [facility]rology [address] [place] [address] [place] [address] Phone: tel: fax: Referral ID Status Reason Start Date Expiration Date V isits Requested Visits Authorized [id number] Closed Specialty Services Required 09/09/2024 09/09/2025 1 1 Encounter Details Date Type Department Care Team (Late st Contact Info) Description 09/09/2024 Orders Only [facility] MEDICINE [address] [place] [address] Soinya Colon MD [address] [place], [place] [phone] Kidney stone (Primary Dx) Social History Tobacco [...] Description 05/14/2025 4:00 PM EST Office Visit [facility] MEDICINE [address] [place] [address] Soniya Colon MD [address] [place] [address] 07/02/2025 3:30 PM EST Office Visit [facility] OPTOMETRY [address] [place] [address] Katelyn Borjas, LISSETH [address] [place] [address] documented as of this encounter Procedures Procedure [...] documented as of this encounter Care Teams Rubber Goods Finisher Relationship Specialty Start Date End Date Soniya Colon MD [address] [place] [address] PCP - General Family Medicine 01/19/21 documented as of this encounter
--- OUTSIDE RECORDS SUMMARY | 2025-04-04 12:23 | XMS_ITS | Encounter Summary ---
Author Organization [employer] Address [address] [place] [address] 7 [place] [address] Care Team Providers Care Library Services Assistant Name Role Phone Soniya Colon MD Primary Care Provider [phone] Encounter Details Date Type Department Care Team (Latest Contact Info) Description 03/31/2025 Travel Social History Tobacco Use Types Packs/Day [...] the past 12 months, has t he [employer], [employer], oil or water [employer] threatened to shut off services in your [...] Description 05/14/2025 4:00 PM EST Office Visit [facility] MEDICINE [address] [place] [address] Soniya Colon MD [address] [place] [address] 07/02/2025 3:30 PM EST Office Visit [facility] OPTOMETRY [address] [place] [address] [place], Katelyn, OD [address] [place] [address] documented as of this encounter Visit Diagnoses Not on filedocumented in this encounter Additional Health Concerns Assessment Noted Time PHQ-9 Depression Total Score: 10 025 3:23 PM EDT documented as of this encounter Care Teams Library Services Assistant Relationship Specialty Start Date End Date Soniya Colon MD [address] [place] [address] PCP - General Family Medicine 01/19/21 documented as of this encounter
--- OUTSIDE RECORDS SUMMARY | 2025-04-04 12:23 | XMS_ITS | Data Portability ---
Author Organization [place] [facility], Allergy Address [address] [address] Care Team Providers Care Home Office Claims Examiner Name Role Phone MAGY MANUEL Primary Care [...] Details Recorded Time Abnormal auditory percepti on 10253282 Active 2022 Other abnormal auditory percepti ons, bilatera l; Note: Date Diagnose d: 3 3:37 PM (H93.293 ) Not Available [facility] 4 02:45:42 Infectiv e otitis externa of bilatera l ears [id number] 73949 Completed 202212/29/2023 Other infectiv e otitis externa, bilatera l; Note: Date Diagnose d: 3 2:50 PM (H60.393 ) Not Available [facility] 4 02:45:39 Acute sinusiti s 54114164 Active 2024 ARSEN GOODMAN PA-C [address] [place] [address],[facility] [address] [place], [address] , [facility] - [facility] 5 15:47:08 Problem Notes None recorded. Medical Equipment None Reported. Allergies Allergen ID Allergen Name Allergen Category Reaction Reaction Severity Criticality Documentation Date Start Date Code Code System Note Provider Name and Address Organization Details Recorded Time 622506 Bactrim medicatio n Not available Not available Not available 10/10/2023 22259 9 RxNorm React ion: Lip swell ing; Not Available [facility] 4 01:08:18 008817 terbinafi ne medicatio n facial swelling Not available Not available 10/10/2023 31190 RxNorm React ion: Facia l swell ing; Not Available [facility] 4 01:08:20 Medications Name Sig Start Date [...] 0.35 mg tablet active Medicati on ID: 642580 B rand Name: norethin drone (contrac eptive) [...] a day 08/28 completed Medicati on ID: [id number] D uration Value: 14 Brand Name: Ciprodex [...] a day 08/28 completed Medicati on ID: [id number] D uration Value: 7 Brand Name: fluocino lone acetonid e oil Send Method: E-Prescr ibed Sub s Allowed: subs OK Medic ationGen ericName : fluocino lone acetonid e oil Not Available Not Available Not Available M- Plus 27 mg iron-1 mg tablet 08/28 completed Medicati on ID: [id number] B rand Name: M- Plus Sen d Method: E-Prescr ibed Sub s Allowed: subs OK Speci al Instruct ion: TAKE 1 TABLET BY MOUTH EVERY DAY Medi cationGe nericNam e: M- Plus Not Available Not Available Not Available Vitals Date Recorded Body height Body mass index (BMI) Body weight Provider Name and Address Organization Details Last Updated DateTime 08/28/2024 157.48 cm 32.7 kg/m2 81679.03 g MAR HARRY [place] - [facility] 08/28/2024 15:22:52 Social History None recorded. Functional Status None recorded. Mental Status None recorded. Family History Nothing Reported. Medical History No medical history recorded. Gynecological HistoryNo gynecological history recorded. Obstetrics History GPAL:G 0 P 0 0 0 0 Past Encounters Encounter ID Performer Location Encounter Start Date Encounter Closed Date Diagnosis/Indication Diagnosis SNOMED-CT Code Diagnosis ICD10 Code Diagnosis IMO Codes Diagnosis Note [id number] ARSEN GOODMAN PA-C [facility] [address] [address] 08/28/2024 15:13:18 08/28/2024 15:54:21 Abnormal auditory perception 66274684 H93.293 Acute sinusitis 91525747 J01.90 Health Concerns Section Related Observation LastModified by Organization Detai ls LastModified Time None Recorded Concern Status LastModified by Organization Details LastModified Time None Recorded Advance Directives Directive None Recorded Payers Insurance Date Sequence Insurance Name Policy Number Policy Irizarry Covered Member ID Irizarry Member ID Guarantor Name 08/23/2024 1 [facility] [id number] Cande Hernandez [id number] Cande Hernandez 08/28/2024 1 [facility] ([facility] [id number] Cande Hernandez [id number] Cande Hernandez Notes Date Note Type Note [...] of seasonal allergies. PAULETTE CHEEK MD [address] [place] [address], [phone], [facility] - [facility] 08/29/2024 10:41:39 OBGyn Episode No OBEpisode recorded.
--- OUTSIDE RECORDS SUMMARY | 2025-04-04 12:23 | XMS_ITS | Encounter Summary ---
Author Organization [employer] Address [address] [place] [address] [address] [place] [address] Care Team Providers Care Patching Machine Operator Name Role Phone Soniya Colon MD Primary Care Provider [phone] Reason for Visit * Reason Onset Date Comments Nurse Triage 03/31/2025 Encounter Details Date Type Department Care Team ([facility] st Contact Info) Description 03/31/2025 Telephone [facility] MEDICINE [address] [place], [place] [phone] Soniya Colon MD [address] [place], [place] [phone] Nurse Triage Social History Tobacco Use Types Packs/Day Years [...] is your housing situation today? I have jolnee lemus 12/03/[address] you [...] encounter Miscellaneous Notes * Telephone Encounter - Florencia Lombardo RN - 03/31/2025 9:55 AM EST Telephone call to pt who reports saw Dr. Colon 03/24/25 for HDF for mycoplasma pnuemonia. She wasprescribed new Symbicort but reports it isn't helping. Since 03/29/25, pt re-developed wheezing withinspiration, cough, shortness of breath with exertion, chest tightness when taking a deep breath. She has been using Symbicort and albuterol inhalers but they haven't helped since Monday. She is speaking in clear, full sentences, reports that she slept partially sitting up last night for ease of breathing. Scheduled for sick on site today at 12pm. Advised pt to go to ER is develops SOB at rest,nonstop coughing, fever. Pt verbalized understanding, in agreement with plan. Protocol Used: Breathing Difficulty (Adult) Protocol-Based Disposition: Go to Office or Video Visit Now Positive Triage Questions: * Mild difficulty breathing (e.g., minimal/no SOB at rest, SOB with walking, pulse < 100) of new-onset or worse than normal * Patient wants to be seen * All higher-acuity triage questions were negative Care Advice Discussed: * Reasons To Call Back - Severe difficulty breathing occurs - Fever more than 100.4 F (38.0 C) - You become worse documented in this encounter Plan of Treatment Upcoming Encounters Date Type Department Care Team (Late st Contact Info) Description 05/14/2025 4:00 PM EST Office Visit [facility] MEDICINE [address] [place] [address] Soniya Colon MD [address] [place] [address] 07/02/2025 3:30 PM EST Office Visit [facility] OPTOMETRY [address] [place], [place] [phone] Katelyn Borjas, OD [address] [place] [address] documented as of this encounter Visit Diagnoses Not on filedocumented in this encounter Additional Health Concerns Assessment Noted Time PHQ-9 Depression Total Score: 10 025 3:23 PM EDT documented as of this encounter Care Teams Patching Machine Operator Relationship Specialty Start Date End Date Soniya Colon MD [address] [place], [place] [phone] PCP - General Family Medicine 01/19/21 documented as of this encounter
--- OUTSIDE RECORDS SUMMARY | 2025-04-04 12:23 | XMS_ITS | Encounter Summary ---
Author Organization [employer] Address [address] [place] [address] [address] [place] [address] Care Team Providers Care Chicken Hanger Name Role Phone Soniya Colon MD Primary Care Provider Encounter Details Date Type Department Care Team ([facility] st Contact Info) Description 10/16/2023 Orders Only [facility] MEDICINE [address] [place] [address] Soniya Colon MD [address] [place] [address] Social History Tobacco Use Types Packs/Day Years [...] Description 05/14/2025 4:00 PM EST Office Visit [facility] MEDICINE [address] [place] [address] Soniya Colon MD [address] [place] [address] 07/02/2025 3:30 PM EST Office Visit [facility] OPTOMETRY [address] [place] [address] [place]io, Katelyn, OD [address] [place] [address] documented as of this encounter Visit Diagnoses Not on filedocumented in this encounter Additional Health Concerns Assessment Noted Time PHQ-9 Depression Total Score: 13 023 3:47 PM EST documented as of this encounter Care Teams Chicken Hanger Relationship Specialty Start Date End Date Soniya Colon MD [address] [place] [address] PCP - General Family Medicine 01/19/21 documented as of this encounter
--- OUTSIDE RECORDS SUMMARY | 2025-04-04 12:23 | XMS_ITS | Encounter Summary ---
Author Organization [employer] Address [address] [place] [address] 7 [place] [address] Care Team Providers Care Clinical Coder Name Role Phone Soniya Colon MD Primary Care Provider [phone] Encounter Details Date Type Department Care Team (Late st Contact Info) Description 01/10/2023 Orders Only [facility] MEDICINE [address] [place] [phone] Soniya Colon MD [address] [place] [phone] Migraine without aura and with status migrainosus, [...] Description 05/14/2025 4:00 PM EST Office Visit [facility] MEDICINE [address] [place], [place] [phone] Soniya Colon MD [address] [place] [address] 07/02/2025 3:30 PM EST Office Visit [facility] OPTOMETRY [address] [place] [address] Katelyn Borjas, OD [address] [place] [address] documented as of this encounter Visit Diagnoses Diagnosis Migraine without aura and with status migrainosus, not intractable- Primary documented in this encounter Care Teams Clinical Coder Relationship Specialty Start Date End Date Soniya Colon MD [address] [place] [address] PCP - General Family Medicine 01/19/21 documented as of this encounter
--- OUTSIDE RECORDS SUMMARY | 2025-04-04 12:23 | XMS_ITS | Encounter Summary ---
Author Organization [employer] Address [address] [place] [address] 7 [place] [address] Care Team Providers Care Consumer Services Advisor Name Role Phone Soniya Colon MD Primary Care Provider [phone] Reason for Visit * Reason Onset Date Comments Hospital Follow-up 03/06/2025 Encounter Details Date Type Department Care Team ([facility] st Contact Info) Description 03/06/2025 Telephone [facility] MEDICINE [address] [place], [place] [phone] Soniya Colon MD [address] [place], [place] [phone] Hospital Follow-up Social History Tobacco Use Types [...] from pt requesting a HDF appt. Hospital: [facility] Date of admission: 02/26 Discharge date: 03/05 Diagnosed: pneumonia both lungs , glucose all over the place *Send message to [place] Clinical Care Coordinators Contact pt at [phone] documented in this encounter Plan of Treatment Upcoming Encounters Date Type Department Care Team ([facility] st Contact Info) Description 05/14/2025 4:00 PM EST Office Visit [facility] MEDICINE [address] [place] [address] Soniya Colon MD [address] [place] [address] 07/02/2025 3:30 PM EST Office Visit [facility] OPTOMETRY [address] [place], [place] [phone] Indio, Katelyn, OD [address] [place] [address] documented as of this encounter Visit Diagnoses Not on filedocumented in this encounter Additional Health Concerns Assessment Noted Time PHQ-9 Depression Total Score: 4 03/25/20 24 2:12 PM EDT documented as of this encounter Care Teams Consumer Services Advisor Relationship Specialty Start Date End Date Soniya Colon MD [address] [place], [place] [phone] PCP - General Family Medicine 01/19/21 documented as of this encounter
--- OUTSIDE RECORDS SUMMARY | 2025-04-04 12:23 | XMS_ITS | Encounter Summary ---
Author Organization [employer] Address [address] [place] [address] 7 [place] [address] Care Team Providers Care Refinery Operator Light Ends Recovery Name Role Phone Soniya Colon MD Primary Care Provider [phone] Reason for Visit * Reason Comments Med Refill Encounter Details Date Type Department Care Team (Late st Contact Info) Description 07/06/2022 Refill [facility] [address] [place], [place] [phone] Sohail Rouse MD [address] [place] [address] [phone] Social History Tobacco Use Types Packs/Day Years [...] Description 05/14/2025 4:00 PM EST Office Visit [facility] [address] [place] [address] [phone] Soniya Colon MD [address] [place] [address] [phone] 07/02/2025 3:30 PM EST Office Visit [facility] OPT[facility]RY [address] [place] [address] Katelyn Borjas, OD [address] [place], [place] [phone] documented as of this encounter Visit Diagnoses Not on filedocumented in this encounter Care Teams Refinery Operator Light Ends Recovery Relationship Specialty Start Date End Date Soniya Colon MD [address] [place], [place] [phone] PCP - General Family Medicine 01/19/21 documented as of this encounter
--- OUTSIDE RECORDS SUMMARY | 2025-04-04 12:23 | XMS_ITS | Encounter Summary ---
Author Organization [employer] [facility] Address [facility] [employer] [facility] [address] [place] [phone] Phone Care Team Providers Care Social Media Job Titles Name Role Phone Soniya Colon MD Primary Care Provider + Encounter Details Date Type Department Care Team (Late st Contact Info) Description 11/16/2023 Procedure Pass OR Admitting Dept - Virtual Department [address] [place] [address] Social History Tobacco Use Types Packs/Day Years [...] on filedocumented in this encounter Care Teams Social Media Job Titles Relationship Specialty Start Date End Date Soniya Colon MD PCP - General Family Medicine 03/27/23 documented as of this encounter Additional Source Comments The information contained in this document represents components of the legal health record. It is not the complete legal health record.[facility]
--- OUTSIDE RECORDS SUMMARY | 2025-04-04 12:23 | XMS_ITS | Encounter Summary ---
Author Organization [employer] Address [address] [place] [address] 7 [place] [address] Care Team Providers Care Storage Specialist Name Role Phone Soniya Colon MD Primary Care Provider [phone] Reason for Visit * Reason Onset Date Comments Care Coordination 03/31/2025 Encounter Details Date Type Department Care Team ([facility] st Contact Info) Description 03/31/2025 Telephone [facility] MEDICINE [address] [place], [place] [phone] Soniya Colon MD 230 [place], [place] [phone] Care Coordination Social History Tobacco Use Types Packs/Day Years [...] Telephone Encounter - Mel Martinez RN - 03/31/2025 1:18 PM EST This RN called 911 for patient c/o SOB, chest tightness since Monday. Patient transferred to [facility] for further evaluation. documented in this encounter Plan of Treatment Upcoming Encounters Date Type Department Care Team (Late st Contact Info) Description 05/14/2025 4:00 PM EST Office Visit [facility] MEDICINE [address] [place] [phone] Soniya Colon MD 230 [place] [address] 07/02/2025 3:30 PM EST Office Visit [facility] OPTOMETRY [address] [place], [place] [phone] Katelyn Borjas, OD 230 [place] [address] documented as of this encounter Visit Diagnoses Not on filedocumented in this encounter Additional Health Concerns Assessment Noted Time PHQ-9 Depression Total Score: 10 03/24/ 025 3:23 PM EDT documented as of this encounter Care Teams Storage Specialist Relationship Specialty Start Date End Date Soniya Colon MD [address] [place], [place] [phone] PCP - General Family Medicine 01/19/21 documented as of this encounter
--- OUTSIDE RECORDS SUMMARY | 2025-04-04 12:23 | XMS_ITS | Encounter Summary ---
Author Organization [employer] Address [address] [place] [address] 7 [place] [address] Care Team Providers Care Contact Lens Lathe Operator Name Role Phone Soniya Colon MD Primary Care Provider [phone] Encounter Details Date Type Department Care Team (Late st Contact Info) Description 04/25/2022 Abstract [facility] MEDICINE [address] [place] [address] Soniya Colon MD [address] [place] [address] Social History Tobacco Use Types Packs/Day Years [...] Description 05/14/2025 4:00 PM EST Office Visit [facility] MEDICINE [address] [place] [address] Soniya Colon MD 230 [place] [address] 07/02/2025 3:30 PM EST Office Visit [facility] OPTOMETRY [address] [place] [address] [place], Katelyn, OD 230 [place] [address] documented as of this encounter Visit Diagnoses Not on filedocumented in this encounter Care Teams Contact Lens Lathe Operator Relationship Specialty Start Date End Date Soniya Colon MD [address] [place] [address] PCP - General Family Medicine 01/19/21 documented as of this encounter
--- OUTSIDE RECORDS SUMMARY | 2025-04-04 12:23 | XMS_ITS | Encounter Summary ---
Author Organization [employer] Address [address] [place] [address] 7t [place] [address] Care Team Providers Care Contracts Representative Name Role Phone Soniya Colon MD Primary Care Provider [phone] Reason for Referral * Consultation (Routine) - Authorized Specialty Diagnoses / Procedures Referred By Contac t Referred To Contact Pulmonary Disease Diagnoses Pneumonia of left lung due to Mycoplasma pneumoniae, unspecified part of lung Soniya Colon MD [address] [place] [address] Phone: tel: fax: [facility] Pulmonary [address] Floor [place], [place] Phone: tel: fax: Referral ID Status Reason Start Date Expiration Date Visits Requested Visits Authorized [id number] Authorized Specialty Services Required 03/05/2025 03/05/2026 1 1 Encounter Details Date Type Department Care Team (Late st Contact Info) Description 03/05/2025 Orders Only [facility] MEDICINE [address] [place] [address] Soniya Colon MD 230 [place], [place] [phone] Pneumonia of left lung due to Mycoplasma [...] 4:00 PM EST Office Visit [facility] MEDICINE [address] [place] [address] Soniya Colon MD [address] [place] [address] 07/02/2025 3:30 PM EST Office Visit [facility] OPTOMETRY [address] [place] [address] Indio, Katelyn, OD 230 [place] [address] Scheduled Referrals Name Type Priority Associated Diagnoses Orde r Schedule Referral to Pulmonology Outpatient Referral Routine Pneumonia of left lung due to Mycoplasma pneumoniae, unspecified part of lung Expected: 03/05/2025 (Approximate), Expires: 03/05/2026 documented as of this encounter Procedures Procedure Name Priority Date/Time Associated Diagnosis Comments XR CHEST 2 VIEWS Routine 03/31/2025 2:05 PM EST documented in this encounter Results * XR Chest 2 Views (03/31/2025 2:05 PM EST) Anatomical Region Laterality Modality Chest Radiographic Lane[place] ging 03/31/2025 2:05 PM EST Narrative 03/31/2025 2:19 PM EST [facility] [address] [place] [address] XRay Report Signed Patient: Cande Hernandez MR#: [id number] : 1995 Acct:[id number] Age/Sex: 29 / F ADM Date: 03/31/25 Loc: .ED Attending Dr: Ordering Physician: Linda Gilliam Date of Service: 03/31/25 Procedure(s): XR chest 2V Accession Number(s): [id number] cc: Linda Gilliam; Soniya Colon Reason for Exam: cough EXAMINATION: XR CHEST CLINICAL INFORMATION: cough COMPARISON: March 24, 2025 TECHNIQUE: 2 views of the chest were obtained. FINDINGS: There is no pneumothorax. Lungs are clear. Heart size is within normal limits. There is no evidence of a pleural effusion. XR/XR chest 2V IMPRESSION: No acute disease, stable x-ray Electronically signed by: David Downey MD 03/31/2025 02:16 PM EST RP Dictated By: David Downey MD Signed By: <Electronically signed by David Downey MD in OV> 03/31/25 1416 DD/ 1405 TD/TT: 03/31/25 1410 Test Pilot: Procedure Note Donotuseinterpreter, Image - 03/31/2025 [place] [address] XRay Report Signed Patient: Cande Hernandez KMR#: [id number] : 1995Acct:[id number] Age/Sex: 29 FADM Date: 03/31/25 Loc: .ED Attending Dr: Ordering Physician: Linda Gilliam Date of Service: 03/31/25 Procedure(s): XR chest 2V Accession Number(s): [id number] cc: Linda Gilliam; Soniya Colon Reason for Exam: cough EXAMINATION: XR CHEST CLINICAL INFORMATION: cough COMPARISON: March 24, 2025 TECHNIQUE: 2 views of the chest were obtained. FINDINGS: There is no pneumothorax. Lungs are clear. Heart size is within normal limits. There is no evidence of a pleural effusion. XR/XR chest 2V IMPRESSION: No acute disease, stable x-ray Electronically signed by: David Downey MD 03/31/2025 02:16 PM EST RP Dictated By: David Downey MD Signed By: <Electronically signed by David Downey MD in OV> 03/31/25 1416 DD/ 1405 TD/TT: 03/31/25 1410 Test Pilot: [facility] External Provider IMG XR PROCEDURES Edited Result - Final documented in this encounter Visit Diagnoses Diagnosis Pneumonia of left lung due to Mycoplasma pneumoniae, unspecified part of lung- Primary documented in this encounter Additional Health Concerns Assessment Noted Time PHQ-9 Depression Total Score: 4 03/25/20 24 2:12 PM EDT documented as of this encounter Care Teams Contracts Representative Relationship Specialty Start Date End Date Soniya Colon MD [address] [place] [address] PCP - General Family Medicine 01/19/21 documented as of this encounter
--- OUTSIDE RECORDS SUMMARY | 2025-04-04 12:23 | XMS_ITS | Encounter Summary ---
Author Organization [employer] Address [address] [place] [address] 7t [place] [address] Care Team Providers Care Category Development Analyst Name Role Phone Soniya Colon MD Primary Care Provider [phone] Encounter Details Date Type Department Care Team ([facility] st Contact Info) Description 01/22/2025 Orders Only [facility] MEDICINE [address] [place] [address] Soniya Colon MD [address] [place] [address] Weight gain (Primary Dx) Social History Tobacco [...] the past 12 months, has t he [employer], gas, oil or water company threatened to [...] Office Visit [facility] MEDICINE [address] [place] [address] Soniya Colon MD [address] [place] [address] 07/02/2025 3:30 PM EST Office Visit [facility] OPTOMETRY [address] [place] [address] Katelyn Borjas, LISSETH 230 [place] [address] Scheduled Orders Name Type Priority Associated Diagnoses [...] documented as of this encounter Care Teams Category Development Analyst Relationship Specialty Start Date End Date Soniya Colon MD [address] [place] [address] PCP - General Family Medicine 01/19/21 documented as of this encounter
--- OUTSIDE RECORDS SUMMARY | 2025-04-04 12:23 | XMS_ITS | Encounter Summary ---
Author Organization [employer] Address [address] [place] [address] 7 [place] [address] Care Team Providers Care Lease Out Worker Name Role Phone Soniya Colon MD Primary Care Provider [phone] Encounter Details Date Type Department Care Team (Late st Contact Info) Description 03/31/2025 Orders Only [facility] EXTERNAL DATA DEPARTMENT Provider, Generic External Data Social History Tobacco Use Types Packs/Day Years [...] the past 12 months, has t he [employer], [employer], oil or water [employer] threatened to shut off services in your [...] Description 05/14/2025 4:00 PM EST Office Visit [facility] MEDICINE [address] [place] [address] Soniya Colon MD [address] [place] [address] 07/02/2025 3:30 PM EST Office Visit [facility] OPTOMETRY [address] [place] [address] IndioKatelyn iqbal, OD [address] [place] [address] documented as of this encounter Procedures Procedure Name Priority Date/Time Associated Diagnosis Comments D DIMER HIGH SENSITIVITY Routine 03/31/2025 5:10 PM EST INFLUENZA A B2 ID NOW (JOHNSON) Routine 03/31/2025 3:49 PM EST STREP A NUCLEIC ACID Routine 03/31/2025 3:49 PM EST COVID-19 ID NOW (JOHNSON) Routine 03/31/2025 3:49 PM EST documented in this encounter Results * D Dimer High Sensitivity (03/31/2025 5:10 PM EST) D Dimer High Sensitivity <150 NG/ML [facility] Comment:D-DIMER HS REFERENCE RANGENote: Our assay reports D-Dimer Units (D- DU).The cut-off value for venous thromboembolic (VTE) disease is230 ng/mL. This value has a very high negative predictivevalue when the patient has a low to moderate clinicalprobability of VTE.The upper limit of normal is 243 ng/mL. 03/31/2025 5:10 PM EST 03/31/2025 5:18 PM EST us Generic External Data Provider LAB BLOOD ORDERAB LES Final Result [facility] [address] [place] [phone] * COVID-19 ID NOW (JOHNSON) (03/31/2025 3:49 PM EST) IDNOW SERIAL# [id number] [facility] COVID-19 TEST Negative Negative [facility] COVID-19 NOTE See Note [facility] Comment: Results are for the identification of SARS-CoV2 RNA. TheSARS-CoV2 RNA is generally detectable in respiratory samplesduring the acute phase of infection. Positive results areindicative of the presence of SARS-CoV-2 RNA; clinicalcorrelation with patient history and other diagnosticinformation is necessary to determine patient infectionstatus. Positive results do not rule out bacterial infectionor co- infection with other viruses.Testing facilities within the [facility] are required to report all positive results tothe appropriate public health authorities.Negative results should be treated as presumptive and, ifinconsistent with clinical signs and symptoms or necessaryfor patient management, should be tested with differentauthorized or cleared molecular tests. Negative results donot preclude SARS-CoV2 RNA infection and should not be usedas the sole basis for patient management decisions. Negativeresults should be considered in the context of a patient'srecent exposures, history and the presence of clinical signsand symptoms consistent with COVID-19.This test has been authorized by the FDA under an EmergencyUse Authorization (EUA) for use by authorized laboratories.Testing performed on the Johnson ID NOW utilizing NAAT. 03/31/2025 3:49 PM EST 03/31/2025 3:56 PM EST Generic External Data Provider LAB MOLECULAR MATEO GNOSTICS ORDERABLES Final Result Performing Organization Address [facility] Co de Phone Number [facility] [address] [place] [phone] * Strep A Nucleic Acid (03/31/2025 3:49 PM EST) IDNOW SERIAL# [id number] [facility] Strep A Nucleic Acid Negative Negative [facility] Comment:All test results mus t be correlated with clinical findings.This test has not been evaluated for monitoring treatment ofinfection.Additional follow-up testing using the culture method isrequired if the result is negative and clinical symptomspersist, or in the event of an acute rheumatic feveroutbreak. 03/31/2025 3:49 PM EST 03/31/2025 3:56 PM EST Generic External Data Provider LAB MICROBIOLOGY - GENERAL ORDERABLES Final Result Performing Organization Address [facility] Co de Phone Number [facility] [address] [place] [phone] * Influenza A B2 ID NOW (Johnson) (03/31/2025 3:49 PM EST) IDNOW SERIAL# [id number] [facility] Influenza A Negative Negative [facility] Influenza B2 Negative Negative [facility] Influenza A B2 Note See Note [facility] Comment:The Johnson ID NOW In fluenza A B2 test is used for thequalitative detection of influenza A and B from patientswith signs and symptoms of respiratory infection.Negative results do not preclude influenza virus infectionand should not be used as the sole basis for diagnosis,treatment or other patient management decisions.There is a risk of false negative results due to thepresence of variants in the viral targets of the assay, lowlevels of virus in the specimen and co- infection withRespiratory Syncytial Virus. 03/31/2025 3:49 PM EST 03/31/2025 3:56 PM EST us Generic External Data Provider LAB MICROBIOLOGY - GENERAL ORDERABLES Final Result [facility] [address] [place] [phone] [phone] documented in this encounter Visit Diagnoses Not on filedocumented in this encounter Additional Health Concerns Assessment Noted Time PHQ-9 Depression Total Score: 10 025 3:23 PM EDT documented as of this encounter Care Teams Lease Out Worker Relationship Specialty Start Date End Date Soniya Colon MD [address] [place] [address] PCP - General Family Medicine 01/19/21 documented as of this encounter
--- OUTSIDE RECORDS SUMMARY | 2025-04-04 12:23 | XMS_ITS | Clinical Summary ---
Author Organization [employer] [facility] Address [address] [employer] [address] [address] Phone Care Team Providers Care Laborer Hoisting Name Role Phone Soniya Colon MD Primary Care Provider + Allergies Active Allergy Reactions Criticality Noted Date Comments Sulfamethoxazole-Trimetho prim Hives 04/06/2023 Other Reaction(s): Terbinafine Terbinafine Swelling 04/06/2023 SWOLLEN LIPS Black Mchenry Anaphylaxis High 11/10/2023 Medications SUMAtriptan (IMITREX) 50 [...] AM EDT) HCV NON-REACTIV E NON-REACTI VE [facility] Blood 11/06/2023 10:3 4 AM EDT 11/06/2023 10:42 AM EDT Miguel Aguayo MD LAB BLOOD BKR ORDERABLES Leigh Ann l Result [address] [phone] from Last 3 Months or Most Recently Relevant to Health Maintenance Insurance [facility] Advance Directives For more information, please contact: [phone] (9AM - 5PM [facility], Monday-Monday) Documents on File Type Date Recorded Patient Quality Lab Technician Expl anation Healthcare Proxy 11/17/2023 4:31 PM Care Teams Laborer Hoisting Relationship Specialty Start Date End Date Soniya Colon MD PCP - General Family Medicine 03/27/23 Additional Source Comments The information contained in this document represents components of the legal health record. It is not the complete legal health record.[facility]
--- OUTSIDE RECORDS SUMMARY | 2025-04-04 12:23 | XMS_ITS | Encounter Summary ---
Author Organization [employer] Address [address] [place] [address] 7 [place] [address] Care Team Providers Care Lacing Operator Name Role Phone Soniya Colon MD Primary Care Provider [phone] Reason for Visit * Reason Onset Date Comments triage 10/10/2022 Encounter Details Date Type Department Care Team ([facility] st Contact Info) Description 10/10/2022 Telephone [facility] [address] [place] [address] Soniya Colon MD [address] [place], [place] [phone] triage Social History Tobacco Use Types Packs/Day [...] few days. Pt is on vacation in [place] and will return 10/11 afternoon. Pt reports taking apap/motrin alternating every 6 hours and using muscle relaxer but, not effecting pain. Pt reports radiation of pain to left leg. Pt is offered apt 10/17 but,requests to be seen sooner. Pt will come to [facility] upon arrival home 10/11. Home care reviewed [...] Description 05/14/2025 4:00 PM EST Office Visit [facility] [address] [place] [address] Soniya Colon MD [address] [place] [address] 07/02/2025 3:30 PM EST Office Visit [facility] OPTOM[facility] [address] [place] [address] Katelyn Borjas OD 230 [place] [address] documented as of this encounter Visit Diagnoses Not on filedocumented in this encounter Care Teams Lacing Operator Relationship Specialty Start Date End Date Soniya Colon MD [address] [place] [address] PCP - General Family Medicine 01/19/21 documented as of this encounter
--- OUTSIDE RECORDS SUMMARY | 2025-04-04 12:23 | XMS_ITS | Encounter Summary ---
Author Organization [employer] Address [address] [place] [address] 7 [place] [address] Care Team Providers Care Junk Dealer Name Role Phone Soniya Colon MD Primary Care Provider [phone] Encounter Details Date Type Department Care Team ([facility] st Contact Info) Description 04/02/2025 Orders Only [facility] MEDICINE [address] [place] [address] Soniya Colon MD [address] [place] [address] Social History Tobacco Use Types Packs/Day Years [...] 4:00 PM EST Office Visit [facility] MEDICINE [address] [place] [address] Soniya Colon MD [address] [place] [address] 07/02/2025 3:30 PM EST Office Visit [facility] OPTOMETRY [address] [place] [address] Katelyn Borjas, LISSETH [address] [place] [address] documented as of this encounter Visit Diagnoses Not on filedocumented in this encounter Additional Health Concerns Assessment Noted Time PHQ-9 Depression Total Score: 10 025 3:23 PM EDT documented as of this encounter Care Teams Junk Dealer Relationship Specialty Start Date End Date Soniya Colon MD [address] [place] [address] PCP - General Family Medicine 01/19/21 documented as of this encounter
--- OUTSIDE RECORDS SUMMARY | 2025-04-04 12:23 | XMS_ITS | Encounter Summary ---
Author Organization [email or web address] [facility] Address [address] [facility] [address] [place] [address] Phone Care Team Providers Care Credentialing Manager Name Role Phone Soniya Colon MD Primary Care Provider + Encounter Details Date Type Department Care Team ([facility] st Contact Info) Description 03/27/2023 Transcribe Orders [facility] [address] [place] [address] Soniya Colon MD [address] [place] [address] Social History Tobacco Use Types Packs/Day Years [...] on filedocumented in this encounter Care Teams Credentialing Manager Relationship Specialty Start Date End Date Soniya Colon MD PCP - General Family Medicine 03/27/23 documented as of this encounter Additional Source Comments The information contained in this document represents components of the legal health record. It is not the complete legal health record.[facility]
--- OUTSIDE RECORDS SUMMARY | 2025-04-04 12:23 | XMS_ITS | Clinical Summary ---
Author Organization [email or web address] Address [address] [place] [address] 7[address] [place] [address] Care Team Providers Care Maintenance Chief Name Role Phone Soniya Colon MD Primary Care Provider [phone] Allergies Active Allergy Reactions Criticality Noted Date Comments Black [place] Flavoring Agent (Non-Screening) Anaphylaxis High 11/10/2023 Sulfamethoxazole [...] 2 tablets before bedtime. 03/24/20 22 Active SUMAtriptan (Imitrex) 50 MG tablet TAKE 1 TABLET BY MOUTH EVERY 2 HOURS NEEDED FOR MIGRAINE HEADACHE DO NOT EXCEED 2 DOSES/24 HRS 12/30/19 23 Active albuterol 108 (90 Base) MCG/ACT inhaler Inhale 2 puffs every 4 (four) hours. 18 g 1 02/27/20 25 Active glucose blood (OneTouch Ultra) test stripIndicatio ns:Prediabetes Use one strip to test blood sugar once daily 100 each 3 03/10/20 25 026 Active OneTouch UltraSoft 2 Lancets miscIndication s:Prediabetes 1 Lancet Once per day. 100 each 3 03/10/20 25 Active Alcohol Swabs 70 % padsIndication s:Prediabetes Use 1 alcohol swab to test blood sugar once daily 100 each 3 03/10/20 Active Blood Glucose Monitoring Suppl (ONE TOUCH ULTRA 2) w/Device kitIndications :Prediabetes Use to test blood sugar once daily 1 kit 03/10/20 Active Multiple Vitamin (multivitamin) tablet Take 1 tablet by mouth Once per day. Active budesonide-for moterol (Symbicort) 160-4.5 MCG/ACT inhaler Inhale 2 puffs in the morning and at bedtime. Rinse mouth with water after use to reduce aftertaste and incidence of candidiasis. Do not swallow. 1 each 03/24/20 25 Active Spacer/Aero-Ho [place]ding [place] device 1 each Once per day. 1 each 04/02/20 Active betamethasone valerate (Valisone) 0.1 % cream Apply topically twice a day. 01/20/20 025 Discontinued(Me d list cleanup (will not trigger notification to Pharmacy)) ibuprofen 400 MG tablet Take 1 tablet by mouth in the morning and 1 tablet at noon and 1 tablet in the evening and 1 tablet before bedtime. 01/20/20 025 Discontinued(Me d list cleanup (will not trigger notification to Pharmacy)) Neomycin-Polym yxin-HC 1 % solution instill 4 drops by otic route 3 times every day into affected ear(s) for 5-7 days 03/24/20 025 Discontinued(Me d list cleanup (will not trigger notification to Pharmacy)) sodium chloride ([place]) 0.65 % nasal spray 2 sprays in each nostril 4x/day prn 03/24/20 025 Discontinued(Me d list cleanup (will not trigger notification to Pharmacy)) neomycin-polym yxin-hydrocort isone (Cortisporin) 3.5-43607-1 otic suspension INSTILL 4 DROPS TO AFFECTED EAR 3 TIMES A DAY FOR 5- 7 DAYS 03/24/20 22 025 Discontinued(Me d list cleanup (will not trigger notification to Pharmacy)) triamcinolone (Kenalog) 0.5 % cream APPLY TO AFFECTED AREA TOPICALLY FOR 10 DAYS 12/11/19 23 025 Discontinued(Me d list cleanup (will not trigger notification to Pharmacy)) metoclopramide (Reglan) 5 MG tablet Take 1 tablet (5 mg) by mouth if needed each day (part of migraine cocktail with benadryl) for up to 15 days. 15 tablet 12/31/19 Discontinued(Me d list cleanup (will not trigger notification to Pharmacy)) fluocinolone (DermOtic) 0.01 % ear drops APPLY 5 DROPS INTO BOTH EARS TWICE A DAY 02/17/20 Discontinued(Me d list cleanup (will not trigger notification to Pharmacy)) neomycin-polym yxin-dexAMETHa sone (Maxitrol) 3.5-73910-4.1 ophthalmic suspension INSTILL 1 DROP INTO AFFECTED EYE EVERY 4 HOURS FOR 7 DAYS 04/04/20 Discontinued(Me d list cleanup (will not trigger notification to Pharmacy)) benzonatate (Tessalon) 100 MG capsule TAKE 1 CAPSULE BY MOUTH TWICE A DAY NEEDED FOR COUGH FOR 7 DAYS. 08/10/19 Discontinued(Me d list cleanup (will not trigger notification to Pharmacy)) doxycycline (Vibra-Tabs) 100 MG tablet Take 100 mg by mouth 2 times daily. 08/10/19 Discontinued(Me d list cleanup (will not trigger notification to Pharmacy)) Vitamin A (beta carotene) 3 MG (24779 UT) tablet Take 1 tablet by mouth Once per day. 90 tablet 10/16/19 Discontinued(Me d list cleanup (will not trigger notification to Pharmacy)) amitriptyline (Elavil) 10 MG tablet Take 1 tablet (10 mg) by mouth at bedtime. 30 tablet 3 05/17/20 24 025 Discontinued(Me d list cleanup (will not trigger notification to Pharmacy)) predniSONE (Deltasone) 20 MG tablet Take 2 tabs orally for 3 days, then 1 tab orally for 3 more days 9 tablet 02/27/20 025 Discontinued(Me d list cleanup (will not trigger notification to Pharmacy)) levoFLOXacin (Levaquin) 750 MG tablet 03/05/20 25 025 Discontinued(Me d list cleanup (will not trigger notification to Pharmacy)) Blood Glucose Monitoring Suppl w/Device kit 1 each at noon and 1 each in the evening. 1 kit 03/07/20 025 Discontinued(Me d list cleanup (will not trigger notification to Pharmacy)) Alcohol Sheets (Alcoh-Wipe) sheet Test daily before all meals/snacks and once before bedtime. 1 each 03/07/20 25 025 Discontinued(Me d list cleanup (will not trigger notification to Pharmacy)) glucose blood test strip Test blood sugar twice a day 100 each 12 03/07/20 25 025 Discontinued(Me d list cleanup (will not trigger notification to Pharmacy)) Lancets misc 1 each at noon and 1 each in the evening. 100 each 03/07/20 25 025 Discontinued(Me d list cleanup (will not trigger notification to Pharmacy)) Hospital, Clinic, or Other Facility Administered Medication Ordered Dose Route Frequency Start Date End Date Status predniSONE (Deltasone) tablet 50 mgIndications:Coug h, unspecified type,Fever, unspecified fever cause,Moderate persistent asthma with exacerbation 50 mg PO Daily 02/26/2025 5 Discontinued ipratropium-albute rol (Duo-Neb) 0.5-2.5 mg/3 mL nebulizer solution 3 mLIndications:SOB (shortness of breath) 3 mL NEBULIZATION Once 03/31/2025 5 Ended Active Problems Problem Noted Date Diagnosed Date History of mycoplasma pneumonia 03/25/2025 Assessment & Plan (03/25/2025 3:22 PM EDT): Start Symbircort 1 puff BID for suspected asthma/bronchospasm following prolonged hospital course Followup with pulmonology at first available new consult Prediabetes 03/25/2025 Assessment & Plan (03/25/2025 3:22 PM EDT): Continue to monitor for testing blood sugars 2-3 days a week Do not think we should start Metformin because that will confuse the diagnosis Recheck A1C in 8-12 weeks Other fatigue 03/27/2024 Frequently sick 09/24/2023 Low [...] lifestyle every day 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 Would like pharmacological assistance, we [...] attack 04/25/2022 Right lower quadrant pain 04/25/2022 Von Willebrand disease (CMS/HCC) 03/29/2022 Contact dermatitis 01/21/2013 Resolved Problems Problem Noted Date Diagnosed Date Resolved Date UTI (urinary tract infection) 07/26/2024 03/25/2025 Assessment & Plan (07/26/2024 3:49 PM EST): Advised to drink plenty of water and do not hold the urine I will prescribe Macrobid 100 mg twice a day for 1 week UA done and culture sent patient will be contacted with results Vaginal discharge 04/25/2022 05/17/2024 Weight gain 04/25/2022 03/25/2025 Rhabdomyolysis 12/21/2021 05/17/2024 Encounters Date Type Department Care Team Description 04/02/2025 Orders Only [address] [address] Soniya Colon MD 03/31/2025 12:00 PM EST Office Visit [address] [address] Meri Haque DO SOB (shortness of breath) (Primary Dx) 03/31/2025 Orders Only GENERIC EXTERNAL DATA DEPARTMENT Provider, Generic External Data 03/31/[address] [address] Soniya Colon MD Care Coordination 03/31/2025 Travel 03/31/[address] [address] Soniya Colon MD Nurse Triage 03/24/2025 2:45 PM EDT Office Visit [address] [address] Soniya Colon MD History of mycoplasma pneumonia (Primary Dx); Prediabetes 03/24/2025 Travel 03/21/2025 Telephone [facility] [address] [place] [address] Soniya Colon MD chart prep 03/07/[address] [address] Soniya Colon MD Medication Question 03/06/2025 Patient Outreach [facility] [address] [place], [place] [phone] Soniya Colon MD Transition Of Care (Tcm) (HDF scheduled. ) 03/06/[address] [address] Soniya Colon MD Hospital Follow-up 03/05/2025 Orders Only [address] [address] Soniya Colon MD Pneumonia of left lung due to Mycoplasma pneumoniae, unspecified part of lung (Primary Dx) 02/28/[address] [address] Soniya Colon MD 02/26/2025 10:20 AM EDT [facility] [address] [address] Alissa May MD Moderate persistent asthma with exacerbation (Primary Dx); Cough, unspecified type; Fever, unspecified fever cause; Respiratory crackles 1/2 way up posterior chest wall on left side 02/26/2025 Orders Only GENERIC EXTERNAL DATA DEPARTMENT Provider, Generic External Data 02/26/2025 [facility] [address] [address] Soniya Colon MD 02/26/2025 Travel 01/22/2025 Orders Only [address] [address] Soniya Colon MD Weight gain (Primary Dx) 01/17/2025 Refill [facility] [address] [address] Renetta Finney NP Situational anxiety 01/15/2025 Results Follow-Up [address] [address] Nicolette Landa CNM TSH W/Reflex to FT4, POCT Hemoglobin, CBC, Additional followed-up results: 2 01/14/2025 3:15 PM EDT Office Visit [address] [place] [address] Nicolette Landa CNM Abnormal uterine bleeding 01/14/2025 Orders Only [facility] [address] [place] [address] Nicolette Landa CNM 01/14/2025 Travel 01/07/2025 Orders Only [facility] [address] [place] [address] Nicolette Landa CNM Von Willebrand disease ([facility]) (Primary Dx) 01/06/2025 Telephone [facility] [address] [place] [address] Kaitlyn Lozano RN from Last 3 Months Immunizations Immunization Administration [...] Pulse 100 03/31/2025 12:08 PM EST Temperature 36.7 C (98.1 F) 03/24/2025 3:21 PM EDT Respiratory Rate 20 03/31/2025 12:08 PM EST Oxygen Saturation 96% 03/31/2025 12:08 PM EST Inhaled Oxygen Concentration - - Weight 84 kg (185 lb 2 oz) 03/31/2025 12:[address] Height 157.5 cm (5' 2 ) 03/31/2025 12:08 PM EST Body Mass Index 33.86 03/31/2025 12:08 PM EST Plan of Treatment Upcoming Encounters Date Type Department Care Team (Late st Contact Info) Description 05/14/2025 4:00 PM EST Office Visit [facility] [address] [place] [address] Soniya Colon MD [address] [place] [address] 07/02/2025 3:30 PM EST Office Visit [facility] [address] [place] [address] Katelyn Borjas, LISSETH [address] [place] [address] Health Maintenance Due Date Last Done Comments [...] A1C 03/24/2026 025, 09/30/2022, 11/17/2021 Tobacco Screening 03/31/2026 03/31/2025 Pap Smear 09/18/2027 09/17/2024, 02/10/2021 DTaP/Tdap/Td Vaccines [...] HIGH SENSITIVITY Routine 03/31/2025 5:10 PM EST COVID-19 ID NOW (Adyuka) Routine 03/31/2025 3:49 PM EST STREP A NUCLEIC ACID Routine 03/31/2025 3:49 PM EST INFLUENZA A B2 ID NOW (Adyuka) Routine 03/31/2025 3:49 PM EST XR CHEST 2 VIEWS Routine 03/31/2025 2:05 PM EST POCT GLYCATED HEMOGLOBIN, TOTAL Routine 03/24/2025 3:56 [...] Recently Relevant to Health Maintenance Results * D Dimer High Sensitivity (03/31/2025 5:10 PM EST) Only the most recent of2 resultswithin the time period is included. D Dimer High Sensitivity <150 NG/ML [facility] Comment:D-DIMER HS REFERENCE RANGENote: Our [...] Provider LAB BLOOD ORDERAB LES Final Result [facility] [address] [place] [phone] * Influenza A B2 ID NOW (Johnson) (03/31/2025 3:49 PM EST) IDNOW SERIAL# [id number] [facility] Influenza A Negative Negative [facility] Influenza B2 Negative Negative [facility] Influenza A B2 Note See Note [facility] Comment:The Johnson ID NOW In fluenza [...] GENERAL ORDERABLES Final Result Performing Organization Address [facility] [address]/[facility] Co de Phone Number [facility] [address] [place] [phone] * Strep A Nucleic Acid (03/31/2025 3:49 PM EST) IDNOW SERIAL# [id number] [facility] Strep A Nucleic Acid Negative Negative [facility] Comment:All test results mus t be [...] GENERAL ORDERABLES Final Result Performing Organization Address [facility] Co de Phone Number [facility] [address] [place] [phone] * COVID-19 ID NOW (JOHNSON) (03/31/2025 3:49 PM EST) IDNOW SERIAL# [id number] [facility] COVID-19 TEST Negative Negative [facility] COVID-19 NOTE See Note [facility] Comment: Results are for the identification of SARS-CoV2 RNA. TheSARS-CoV2 RNA is generally detectable in respiratory samplesduring the acute phase of infection. Positive results areindicative of the presence of SARS-CoV-2 RNA; clinicalcorrelation with patient history and other diagnosticinformation is necessary to determine patient infectionstatus. Positive results do not rule out bacterial infectionor co- infection with other viruses.Testing facilities within the [facility] and [facility] are required to report all positive results [...] use by authorized laboratories.Testing performed on the alaTest NOW utilizing NAAT. 03/31/2025 3:49 PM EST 03/31/2025 3:56 PM EST us Generic External Data Provider LAB MOLECULAR MATEO GNOSTICS ORDERABLES Final Result [facility] [address] [place] [phone] * XR Chest 2 Views (03/31/2025 2:05 PM EST) Only the most recent of4 resultswithin the time period is included. Anatomical Region Laterality Modality Chest Radiographic Laney ging 03/31/2025 2:05 PM EST Narrative 03/31/2025 2:19 PM EST [address] [address] XRay Report Signed Patient: Cande Hernandez MR#: [id number] : 1995 Acct:[id number] Age/Sex: 29 / F ADM Date: 03/31/25 Loc: HO.ED Attending Dr: Ordering Physician: Linda Gilliam Date of Service: 03/31/25 Procedure(s): XR chest 2V Accession Number(s): [id number] cc: Linda Gilliam; Soniya Colon Reason for [...] by: David Downey MD 03/31/2025 02:16 PM [facility] Dictated By: David Downey MD Signed By: <Electronically signed by David Downey MD in OV> 03/31/25 1416 DD/ 1405 TD/TT: 03/31/25 1410 Perl Developer: Procedure Note Donotuseinterpreter, Image - 03/31/[address] [address] XRay Report Signed Patient: Cande Hernandez KMR#: [id number] : 1995Acct:[id number] Age/Sex: 29 / FADM Date: 03/31/25 Loc: .ED Attending Dr: Ordering Physician: Linda Gilliam Date of Service: 03/31/25 Procedure(s): XR chest 2V Accession Number(s): [id number] cc: Linda Gilliam; Soniya Colon Reason for [...] David Downey MD 03/31/2025 02:16 PM EST Dictated By: David Downey MD Signed By: <Electronically signed by David Downey MD in OV> 03/31/25 1416 DD/ 1405 TD/TT: 03/31/25 1410 Perl Developer: [facility] External Provider IMG XR PROCEDURES Edited Result - Final * (ABNORMAL) POCT Hgb A1c (03/24/2025 3:56 PM EDT) Hemoglobin A1C 6.5(A) 4.0 - 5.7 % QC Media Lot # [id number] Lot# Expiration Date 5,027 Blood 03/24/2025 3:56 PM EDT Soniya Colon MD POINT OF CARE TEST ENTER/EDIT ORDERABLES Final Result * POCT Glucose (03/24/2025 3:22 PM EDT) Glucose Blood, POC 115 60 - 200 mg/dL QC Media Lot # [id number] Lot# Expiration Date 3,,026 Blood Capillary blood specimen / Unknown 03/24/2025 3:22 PM EDT Soniya Colon MD POINT OF CARE TEST ENTER/EDIT ORDERABLES Final Result * XR Chest 1 View (02/28/2025 3:22 AM EDT) Anatomical Region Laterality Modality Chest Radiographic Laney ging 02/28/2025 3:22 AM EDT Narrative 02/28/2025 3:25 AM EDT [address] [address] XRay Report Signed Patient: Cande Hernandez MR#: [id number] : 1995 Acct:[id number] Age/Sex: 29 / F ADM Date: 02/26/25 Loc: [facility] 446-[address]: Jeanine Barker MD Ordering Physician: Jerel Hernadez MD Date of Service: 02/28/25 Procedure(s): XR chest 1V Accession Number(s): [id number] cc: Jerel Hernadez MD; Soniya Colon Reason [...] Chi Martinez MD in OV> 02/28/25323 DD/ 032 TD/TT: 02/28/25321 Perl Developer: Procedure Note Donotuseinterpreter, Image - 02/28/2025 [place] [address] XRay Report Signed Patient: Cande Hernandez KMR#: [id number] : 1995Acct:[id number] Age/Sex: 29 / FADM Date: 02/26/25 Loc: [facility] 446-[address]: Jeanine Barker MD Ordering Physician: Jerel Hernadez MD Date of Service: 02/28/25 Procedure(s): XR chest 1V Accession Number(s): [id number] cc: Jerel Hernadez MD; Soniya Colon Reason [...] in OV> 02/28/25323 DD/ 1 TD/TT: 02/28/25321 Perl Developer: [facility] External Provider IMG XR PROCEDURES Edited Result - Final * (ABNORMAL) Lactic Acid (02/26/2025 6:48 PM EDT) Lactic Acid 2.1(HH) 0.5 - 2.0 mmol/L [facility] Comment:Critical value for t est(s): LA Results called to and readback by: MOOSE Person calling:[email or web address] Date:79-03-45Xoal:1908 02/26/2025 6:48 PM EDT 02/26/2025 6:53 PM EDT Generic External Data Provider LAB BLOOD ORDERAB LES Final Result [facility] [address] [place] [phone] * CTA Chest PE Protocal (02/26/2025 4:40 PM EDT) Anatomical Region Laterality Modality Body, Chest Computed Tomogra phy 02/26/2025 4:40 PM EDT Narrative 02/26/2025 5:06 PM EDT [address] [address] [address] Scan Report Signed Patient: Cande Hernandez MR#: [id number] : 1995 Acct:[id number] Age/Sex: 29 / F ADM Date: 02/26/25 Loc: HO.ED Attending Dr: Ordering Physician: Al Erickson Date of Service: 02/26/25 Procedure(s): CT angio chest PE protocol Accession Number(s): [id number] cc: Soniya Colon; Al Erickson Report Number: [id number]: Total DLP = 360.00 mGy-cm Reason for [...] 02/26/25 1702 DD/ 1640 TD/TT: 02/26/25 1650 Perl Developer: Procedure Note Donotuseinterpreter, Image - 02/26/[address] [place] [address] [address] Scan Report Signed Patient: Cande Hernandez KMR#: [id number] : 1995Acct:[id number] Age/Sex: Date: 02/26/25 Loc: .ED Attending Dr: Ordering Physician: Al Erickson Date of Service: 02/26/25 Procedure(s): CT angio chest PE protocol Accession Number(s): [id number] cc: Nataliya Colon Daniel Report Number: [id number]: Total DLP = 360.00 mGy-cm Reason for [...] 02/26/25 1702 DD/ 1640 TD/TT: 02/26/25 1650 Perl Developer: [facility] External Provider IM CT PROCEDURES Final Result * (ABNORMAL) Lactic Acid (02/26/2025 4:34 PM EDT) Pathologist [facility] Lactic Acid 4.0(HH) 0.5 - 2.0 mmol/L [facility] Comment:Critical value for t est(s): LACTA Results called to ruel back by: FARZANA Person calling: [email or web address] Date:02/26/25 Time:1654 02/26/2025 4:34 PM EDT 02/26/2025 4:37 PM EDT Generic External Data Provider LAB BLOOD ORDERAB LES Final Result Performing Organization Address [facility] de Phone Number [facility] [address] [place] [phone] * (ABNORMAL) High Sensitivity Troponin I (02/26/2025 4:06 PM EDT) Only the most recent of2 resultswithin the time period is included. Pathologist [facility] TROPONIN I HIGH SENSITIVITY 34.7(H) <3.5 - 17.0 ng/L [facility] Comment:The Johnson high sens itivity Troponin-I results should beused in conjunction with other diagnostic information suchas ECG, clinical observations and information, and patientsymptoms to aid in the diagnosis of WI. 02/26/2025 4:06 PM EDT 02/26/2025 4:10 PM EDT Generic External Data Provider LAB BLOOD ORDERAB LES Final Result Performing Organization Address [facility] Co de Phone Number [facility] [address] [place] [phone] * TSH with Reflex to Free T4 (02/26/2025 1:15 PM EDT) Only the most recent of2 resultswithin the time period is included. Pathologist [facility] TSH reflex Free T4 1.00 0.32 - 4.0 uIU/mL [facility] 02/26/2025 1:15 PM EDT 02/26/2025 1:18 PM EDT us Generic External Data Provider LAB BLOOD ORDERAB LES Final Result [facility] [address] [place] [phone] * (ABNORMAL) CBC auto differential (02/26/2025 1:15 PM EDT) White Blood Count 11.0(H) 4.8 - 10.8 X10*3/uL [facility] Red Blood Count 4.75 4.20 - 5.50 X10*6/uL [facility] Hemoglobin 13.3 12.0 - 16.0 g/dl [facility] Hematocrit 38.2 37.0 - 47.0 % [facility] Mean Corpuscular Volume 80.4 80.0 - 98.0 fL [facility] Mean Corpuscular Hemoglobin 28.0 27.0 - 33.0 pg [facility] Mean Corpuscular HGB Conc 34.8 31.0 - 35.0 g/dl [facility] Red Cell Distribution Width 13.2 11.0 - 16.0 % [facility] Platelet Count 234 160 - 400 X10*3/uL [facility] Mean Platelet Volume 9.3(L) 9.4 - 12.3 fL [facility] Neutrophils Percent Auto 85.7(H) 45 - 73 % [facility] Imm Gran Pct Auto 0.5(H) 0.0 - 0.4 % [facility] Lymphocytes Percent Auto 6.1(L) 20 - 40 % [facility] Monocytes Percent Auto 7.4 2 - 11 % [facility] Eosinophils Percent Auto 0.1 0 - 4 % [facility] Basophils Percent Auto 0.2 0 - 2 % [facility] NRBC Pct Auto 0.0 0.0 - 0.2 /100WBC [facility] Neutrophils Absolute Auto 9.4(H) 2.0 - 8.3 x10*3/uL [facility] Imm Gran Abs Auto 0.05(H) 0.00 - 0.03 X10*3/uL [facility] Lymphocytes Absolute Auto 0.7(L) 1.2 - 4.9 X10*3/uL [facility] Monocytes Absolute Auto 0.8 0.1 - 1.2 X10*3/uL [facility] Eosinophils Absolute Auto 0.0 0.0 - 0.4 X10*3/uL [facility] Basophils Absolute Auto 0.0 0.0 - 0.2 X10*3/uL [facility] NRBC Abs Auto 0.000 0.0 - 0.012 X10*3/uL [facility] 02/26/2025 1:15 PM EDT 02/26/2025 1:18 PM EDT us Generic External Data Provider LAB BLOOD ORDERAB LES Final Result [facility] [address] [place] [phone] * hCG, Total, Quantitative (02/26/2025 1:15 PM EDT) HCG Quantitative <2 mIU/mL [facility] Comment:Weeks post LMP Appro ximate hCG(Last Menstrual Period) Range (mIU/ml)3 - 4 weeks 9 - 1304 - 5 weeks 75 - 2,6005 - 6 weeks 850 - 20,8006 - 7 weeks 4000 - 100,2007 - 12 weeks 11,500 - 289,17517 - 16 weeks 18,300 - 137,82225 - 29 weeks (2nd trimester) 1,400 - 53,80654 - 41 weeks (3rd trimester) 940 - [...] ORDERAB LES Final Result Performing Organization Address [facility] [address] [facility] Co de Phone Number [facility] [address] [place] [phone] * Magnesium (02/26/2025 1:15 PM EDT) Magnesium 2.1 1.6 - 2.6 mg/dL [facility] 02/26/2025 1:15 PM EDT 02/26/2025 1:18 PM EDT Generic External Data Provider LAB BLOOD ORDERAB LES Final Result Performing Organization Address [facility] Phone Number [facility] [address] [place] [phone] * (ABNORMAL) Hepatic Function Panel (02/26/2025 1:15 PM EDT) Bilirubin, Total 0.3 0.0 - 1.0 mg/dL [facility] Bilirubin, Direct 0.1 0.0 - 0.5 mg/dL [facility] Aspartate Amino Transferase 56(H) 5 - 31 U/L [facility] Alanine Aminotransferase 40(H) 0 - 31 U/L [facility] Total Protein 7.2 6.5 - 8.0 g/dL [facility] Albumin Level 4.4 3.5 - 5.0 g/dL [facility] Alkaline Phosphatase 72 39 - 117 U/L [facility] 02/26/2025 1:15 PM EDT 02/26/2025 1:18 PM EDT Generic External Data Provider LAB BLOOD ORDERAB LES Final Result Performing Organization Address [facility] [address]/[facility] Co de Phone Number [facility] [address] [place] [phone] * (ABNORMAL) Basic Metabolic Panel (02/26/2025 1:15 PM EDT) Sodium 137 135 - 145 mmol/L [facility] Potassium 4.2 3.3 - 5.1 mmol/L [facility] Chloride 103 96 - 108 mmol/L [facility] Carbon Dioxide 24 22 - 29 mmol/L [facility] Anion Gap 14 12 - 20 [facility] Urea Nitrogen (BUN) 6(L) 9 - 16 mg/dL [facility] Creatinine, Serum 0.65 0.5 - 1.4 mg/dL [facility] Creatinine Clr Calc Pharmacy 128.2 [facility] Comment:Provided height and weight: 157.48 cm,82.4 kg.eGFR (calculated from the MDRD study equation) and eCrCl(calculated from the Cockcroft-Gault equation) are based ondifferent parameters and may not yield comparable results.If eCrCl result is absurd, please check patient'sheight/weight. Estimated Glomerular Filt Rate >60 [facility] Comment:Chronic Kidney Disea se: Estimated GFR < 60 mL/min/1.14a9Yijkzz Kidney Disease: Estimated GFR < 15 mL/min/1.73m2 Glucose 193(H) 60 - 115 mg/dL [facility] Calcium 9.0 8.4 - 10.2 mg/dL [facility] 02/26/2025 1:15 PM EDT 02/26/2025 1:18 PM EDT us Generic External Data Provider LAB BLOOD ORDERAB LES Final Result [facility] [address] [place] [address] [phone] * POCT Rapid Influenza B JOHNSON ID NOW (02/26/2025 10:37 AM EDT) Influenza B Negative Negative, Indeterminate [facility] QC Media Lot # [id number] [facility] Lot# Expiration Date ,026 [facility] Swab 02/26/2025 10:3 7 AM EDT Alissa May MD POINT OF CARE TEST ENTER/EDIT ORDERABLES Final Result Performing Organization Address [facility] [address]/[facility] Co de Phone Number [facility] [address] [place] [address] [phone] * POCT Rapid Influenza A JOHNSON ID NOW (02/26/2025 10:36 AM EDT) Influenza A Negative Negative, Indeterminate [facility] QC Media Lot # [id number] [facility] Lot# Expiration Date [id number] [facility] Swab 02/26/2025 10:3 6 AM EDT Alissa May MD POINT OF CARE TEST ENTER/EDIT ORDERABLES Final Result Performing Organization Address [facility] [address]/[facility] de Phone Number [facility] [address] [place] [address] [phone] * POCT Rapid Covid-19 JOHNSON ID NOW (02/26/2025 10:35 AM EDT) Pathologist [facility] Coronavirus Antigen PCR Negative Negative, Indeterminate, None Detected, Invalid, Specimen unsatisfactory for evaluation, Weakly Positive, 2+ QC Media Lot # [id number] Lot# Expiration Date ,016 Swab 02/26/2025 10:3 5 AM EDT Alissa May MD POINT OF CARE TEST ENTER/EDIT ORDERABLES Final Result * (ABNORMAL) Iron And Total Iron Binding Capacity (01/14/2025 3:55 PM EDT) Iron 35 30 - 160 mcg/dL [facility] Comment:Slight Hemolysis.Int erpret result with caution. Total Iron Binding Capacity 347 228 - 428 mcg/dL [facility] Percent Iron Saturation 10(L) 15 - 50 % [facility] Unsaturated Iron Binding 312 ug/dL [facility] Blood Venous blood specimen / Unknown 01/14/2025 3:55 PM EDT 01/14/2025 6:21 PM EDT Nicolette Landa [facility] BLOOD ORDERABLES Leigh Ann l Result [facility] [address] [place] [phone] * CBC (01/14/2025 3:55 PM EDT) White Blood Count 8.8 4.8 - 10.8 X10*3/uL [facility] Red Blood Count 4.69 4.20 - 5.50 X10*6/uL [facility] Hemoglobin 13.0 12.0 - 16.0 g/dl [facility] Hematocrit 39.6 37.0 - 47.0 % [facility] Mean Corpuscular Volume 84.4 80.0 - 98.0 fL [facility] Mean Corpuscular Hemoglobin 27.7 27.0 - 33.0 pg [facility] Mean Corpuscular HGB Conc 32.8 31.0 - 35.0 g/dl [facility] Red Cell Distribution Width 13.6 11.0 - 16.0 % [facility] Platelet Count 277 160 - 400 X10*3/uL [facility] Mean Platelet Volume 11.5 9.4 - 12.3 fL [facility] NRBC Pct Auto 0.0 0.0 - 0.2 /100WBC [facility] NRBC Abs Auto 0.000 0.0 - 0.012 X10*3/uL [facility] Blood Venous blood specimen / Unknown 01/14/2025 3:55 PM EDT 01/14/2025 6:21 PM EDT Nicolette Landa [facility] BLOOD ORDERABLES Leigh Ann l Result [facility] [address] [place] [address] [phone] * T4, Free (01/14/2025 3:55 PM EDT) Free T4 (Free Thyroxine) 1.13 0.71 - 1.85 ng/dL [facility] 01/14/2025 3:55 PM EDT 01/14/2025 6:21 PM EDT [facility] B[facility]OD ORDERABLES Leigh Ann l Result Performing Organization Address City/[facility] [address]/ZIP Co de Phone Number [facility] [address] [place] [phone] * Ferritin (01/14/2025 3:55 PM EDT) Pathologist [facility] Ferritin 64 10 - 122 ng/mL [facility] Blood Venous blood specimen / Unknown 01/14/2025 3:55 PM EDT 01/14/2025 6:21 PM EDT [facility] LAB BLOOD ORDERABLES Leigh Ann l Result Performing Organization Address City/[facility] [address]/[facility] Co de Phone Number [facility] [address] [place] [address] [phone] * POCT Hemoglobin (01/14/2025 3:29 PM EDT) Pathologist [facility] Hemoglobin 12.7 12.0 - 15.0 QC Media Lot # [id number] Lot# Expiration Date [id number] Blood 01/14/2025 3:29 PM EDT [facility] POINT OF CARE TEST ENTER/ EDIT ORDERABLES Final Result * Pap Smear (09/17/2024 12:00 AM EDT) Swab Cervical swab / Unknown 09/17/2024 09/18/2024 10:15 AM EDT [facility] - 09/20/2024 10:37 AM EDT ----- ------- Name: Cande Hernandez Age/Sex: 29/F : 1995 Unit#: [id number] Attend Dr: Soniya Colon Re09/17/24 Status: [facility] Disch: ----- ------- SPEC : [id number] RECD: 09/18/24-1015 STATUS: JOSE RAUL BURCIAGA NUM: [id number] [place]: 09/17/24-[address]: Soniya Colon ENTERED: 09/18/24-1040 SP TYPE: Pap Smr [facility] DR: ORDERED: Pap Smear Interpretation Satisfactory for evaluation. Negative for intraepithelial lesion or malignancy. Mild inflammation. Clinical Information LMP: Unknown date Previous PAP test: Unknown date, WNL Material Received ThinPrep-Cervical ----- ------- Signed (signature on file) LEYDI Kyle ([facility]) 09/20/24 1037 ----- ------- END OF REPORT us Soniya Colon MD LAB CYTOLOGY ORDERABLES Final Result [facility] [address] [place] [address] [phone] from Last 3 Months or Most Recently Relevant to Health Maintenance Insurance [facility] [place] [facility] [facility] DENTAL - HSN PARTIAL (MEDICAID) Care Teams Maintenance Chief Relationship Specialty Start Date End Date Soniya Colon MD [address] [place] [phone] PCP - General Family Medicine 01/19/21
== END 2025-04-04 11:16 | disposition home or self-care (01) ==
LOC: HO.HPS 10:29
PROVIDERS: PCP General Practice; Referring Provider General Practice; Visit Provider Hospitalist
DX: J45.41 Moderate persistent asthma with (acute) exacerbation (principal); J18.9 Pneumonia, unspecified organism
CPT/HCPCS: 99215

== ENCOUNTER → 2025-04-04 10:28 | Outpatient (BNVA) | payer BC, SELFPAY | PROVIDERS: PCP General Practice; Referring Provider General Practice; Visit Provider Hospitalist | DX: J45.41 Moderate persistent asthma with (acute) exacerbation (principal); J18.9 Pneumonia, unspecified organism; Z79.899 Other long term (current) drug therapy | CPT/HCPCS: 94640; 96372; J2919 ==

== ENCOUNTER → 2025-04-08 09:58 | Outpatient (REF) | payer BC, SELFPAY ==
--- NOTE | 2025-04-08 10:02 | CA_ITS ---
Transthoracic Echocardiogram Patient (Last, First, Middle): Cande Hernandez K Gender: F Date of : 1995 Age: 29 Procedure Date: 04/08/2025 Procedure Type: Transthoracic Echocardiogram Location: OP Height: 157. cm Weight: 79.38 kg BSA: 1.80 m2 Heart Rate: 80 bpm BP: 110 / 70 mmHg Application Support Developer: SKIP Dietz MD: Meri Haque DO Well Service Floorperson: Jose Roach MD Symptoms: SOB Study Quality: Adequate ECG Rhythm: Sinus Conclusions: - Normal study Findings Left Ventricle Normal left ventricular size, thickness, and systolic function. The visually estimated ejection fraction is between 60-65%. Diastolic function is normal for age. Right Ventricle Normal right ventricular cavity size and systolic function. Atria Both atria are normal in size. There is no evidence of interatrial shunt. Aortic Valve Normal aortic valve structure and function. There is no aortic valve stenosis. There is no aortic valve regurgitation. Mitral Valve Normal mitral valve structure and function. There is trace mitral valve regurgitation. There is no mitral valve stenosis. Pulmonic Valve The pulmonic valve is likely normal. Tricuspid Valve Normal tricuspid valve structure. There is trace tricuspid valve regurgitation. The right ventricular systolic pressure is normal. The right ventricular systolic pressure is 17 mmHg. Normal right atrial pressure. There is no evidence of pulmonary hypertension. Great Vessels All visible segments of the aorta are normal in size. The pulmonary artery was not well visualized. Venous The inferior vena cava is normal in size and collapses greater than 50% with inspiration. Pericardium/Pleural There is no evidence of pericardial effusion. Prior Study Comparison No prior study available for comparison. Measurements 2D Linear Measurements IVSd: 0.94 0.6-0.9/0.6-1.0 cm LVIDd: 4.28 3.9-5.3/4.2-5.9 cm LVIDd Index: 2.38 2.4-3.2/2.2-3.1 cm/m2 LVIDs: 2.83 2.0-3.6 cm LVPWd: 1.00 0.7-1.1 cm LA Diam: 3.10 2.7-3.8/3.0-4.0 cm LAIDs Index: 1.72 1.5-2.3 cm/m2 LV Mass: 168.49 67-162/88-224 g LV Mass Index: 93.60 43-95/49-115 g/m2 LVOT Diam: 1.80 3.0+(-)1.3 cm 2D Systolic Function EF 4C: 57.90 >55% EF 2C: 60.80 >55% EF BiP: 59.00 >55% Mitral Valve MV Pk E: 1.14 MV PK A: 0.67 MV Decel Time: 238.00 E/A: 1.70 E'Lateral: 10.60 E'Medial: 8.27 E/E' Med: 13.80 E/E' Lat: 10.80 PHT: 70.00 MVA PHT: 3.14 Decel [place]: 4.78 Aortic Valve AoV Pk Jose: 1.54 AoV Mn Jose: 1.03 AoV VTI: 0.31 AoV Pk Grad: 9.00 Aov Mn Grad: 5.00 FRANCES Cont.VTI: 2.10 LVOT LVOT Pk Jose: 1.24 LVOT Mn Jose: 0.89 LVOT VTI: 0.25 LVOT Pk Grad: 6.00 LVOT Mn Grad: 4.00 LVOT Diam: 1.80 LVOT Area: 2.54 Diastolic Function MV Pk E: 1.14 MV Pk A: 0.67 E/A: 1.70 E'Medial: 8.27 E/E' Med: 13.80 E' Laterial: 10.60 E/E' Lat: 10.80 Right Ventricle TAPSE (mm): 26.50 TVS' Jose: 12.10 Tricuspid Valve TR Pk Jose: 1.88 TR Pk Grad: 14.00 RA Press: 3.00 RVSP: 17.00 Great Vessels Aorta Sinus of Valsalva: 2.60 2.0-3.5 cm Ao Asc: 3.00 2.1-3.4 cm Ao Arch: 2.60 Pulmonary Veins Pulm Vein S/D 1.90 Pulmonary Valve PV Pk Jose: 0.98 Peak PV Grad: 4.00 Updated in Other Vendor System with Status of Final Jose Roach MD electronically signed on 04/08/2025 11:34:05 AM with status of Final
--- OUTSIDE RECORDS SUMMARY | 2025-04-08 11:20 | XMS_ITS | Encounter Summary ---
Author Organization [employer] Address [address] [place] [address] 7 [place] [address] Care Team Providers Care Mold Capper Name Role Phone Soniya Colon MD Primary Care Provider Encounter Details Date Type Department Care Team (Late st Contact Info) Description 04/25/2022 Abstract [facility] [address] [place] [address] Soniya Colon MD [address] [place] [address] Social History Tobacco Use Types Packs/Day Years [...] Description 05/14/2025 4:00 PM EST Office Visit [facility] [address] [place] [address] Soniya Colon MD [address] [place] [address] 07/02/2025 3:30 PM EST Office Visit [facility] OPTOMETRY [address] [place] [address] [place], Katelyn, OD [address] [place] [address] documented as of this encounter Visit Diagnoses Not on filedocumented in this encounter Care Teams Mold Capper Relationship Specialty Start Date End Date Soniya Colon MD [address] [place] [address] PCP - General Family Medicine 01/19/21 documented as of this encounter
--- OUTSIDE RECORDS SUMMARY | 2025-04-08 11:20 | XMS_ITS | Clinical Summary ---
Author Organization [employer] [facility] ity Address [address] [place] [address] Care Team Providers Care Rn Telehealth Name Role Phone Unavailable Primary Care Provider [...] series) 09/02/2023 Depression Screening 05/29/2024 COVID-19 Vaccine (1 - 2024-2 6 season) 2025 Influenza Vaccine (#1) 2025 RSV [...]
--- OUTSIDE RECORDS SUMMARY | 2025-04-08 11:20 | XMS_ITS | Encounter Summary ---
Author Organization [employer] Address [address] [place] [address] 7 [place] [address] Care Team Providers Care Residence Counselor Name Role Phone Soniya Colon MD Primary Care Provider [phone] Reason for Visit * Reason Onset Date Comments triage 10/10/2022 Encounter Details Date Type Department Care Team ([facility] st Contact Info) Description 10/10/2022 Telephone [facility]INE [address] [place] [address] Soniya Colon MD [address] [place], [place] [phone] triage Social History Tobacco Use Types Packs/Day [...] few days. Pt is on vacation in [place] and will return 10/11 afternoon. Pt reports taking apap/motrin alternating every 6 hours and using muscle relaxer but, not effecting pain. Pt reports radiation of pain to left leg. Pt is offered apt 10/17 but,requests to be seen sooner. Pt will come to [facility] upon arrival home 10/11. Home care [...] Description 05/14/2025 4:00 PM EST Office Visit [facility] MEDICINE [address] [place] [address] Soniya Colon MD [address] [place] [address] 07/02/2025 3:30 PM EST Office Visit [facility] OPTOMETRY [address] [place] [address] Katelyn Borjas OD [address] [place] [address] documented as of this encounter Visit Diagnoses Not on filedocumented in this encounter Care Teams Residence Counselor Relationship Specialty Start Date End Date Soniya Colon MD [address] [place] [address] PCP - General Family Medicine 01/19/21 documented as of this encounter
--- OUTSIDE RECORDS SUMMARY | 2025-04-08 11:20 | XMS_ITS | Encounter Summary ---
Author Organization [employer] Address [address] [place] [address] 7 [place] [address] Care Team Providers Care Sap Bw Architect Name Role Phone Soniya Colon MD Primary Care Provider [phone] Encounter Details Date Type Department Care Team ([facility] st Contact Info) Description 04/02/2025 Orders Only [facility]INE [address] [place] [address] Soniya Colon MD [address] [place] [address] Social History Tobacco Use Types Packs/Day Years [...] Description 05/14/2025 4:00 PM EST Office Visit [facility] MEDICINE [address] [place] [address] Soniya Colon MD [address] [place] [address] 07/02/2025 3:30 PM EST Office Visit [facility] OPTOMETRY [address] [place] [address] Katelyn Borjas, LISSETH [address] [place] [address] documented as of this encounter Visit Diagnoses Not on filedocumented in this encounter Additional Health Concerns Assessment Noted Time PHQ-9 Depression Total Score: 10 025 3:23 PM EDT documented as of this encounter Care Teams Sap Bw Architect Relationship Specialty Start Date End Date Soniya Colon MD [address] [place] [address] PCP - General Family Medicine 01/19/21 documented as of this encounter
--- OUTSIDE RECORDS SUMMARY | 2025-04-08 11:20 | XMS_ITS | Encounter Summary ---
Author Organization [employer] Address [address] [place] [address] 7 [place] [address] Care Team Providers Care Swine Extension Field Specialist Name Role Phone Soniya Colon MD Primary Care Provider [phone] Encounter Details Date Type Department Care Team ([facility] st Contact Info) Description 10/16/2023 Orders Only [facility] MEDICINE [address] [place] [address] Soniya Colon MD [address] [place] [address] Social History Tobacco Use Types Packs/Day Years [...] Description 05/14/2025 4:00 PM EST Office Visit [facility] MEDICINE [address] [place] [address] Soniya Colon MD [address] [place] [address] 07/02/2025 3:30 PM EST Office Visit [facility] OPTOMETRY [address] [place] [address] [place], Katelyn, OD [address] [place] [address] documented as of this encounter Visit Diagnoses Not on filedocumented in this encounter Additional Health Concerns Assessment Noted Time PHQ-9 Depression Total Score: 13 023 3:47 PM EST documented as of this encounter Care Teams Swine Extension Field Specialist Relationship Specialty Start Date End Date Soniya Colon MD [address] [place] [address] PCP - General Family Medicine 01/19/21 documented as of this encounter
--- OUTSIDE RECORDS SUMMARY | 2025-04-08 11:20 | XMS_ITS | Encounter Summary ---
Author Organization [facility] Address [address] [employer] [facility] [address] [place] [phone] Phone Care Team Providers Care Manager Medical Name Role Phone Soniya Colon MD Primary Care Provider + Encounter Details Date Type Department Care Team ([facility] st Contact Info) Description 03/27/2023 Transcribe Orders [facility] [address] [place] [address] Soniya Colon MD [address] [place] [address] Social History Tobacco Use Types Packs/Day Years [...] on filedocumented in this encounter Care Teams Manager Medical Relationship Specialty Start Date End Date Soniya Colon MD PCP - General Family Medicine 03/27/23 documented as of this encounter Additional Source Comments The information contained in this document represents components of the legal health record. It is not the complete legal health record.[facility]
--- OUTSIDE RECORDS SUMMARY | 2025-04-08 11:20 | XMS_ITS | Clinical Summary ---
Author Organization [facility] Address [address] [employer] [address] [address] Phone Care Team Providers Care Pathology Laboratory Technologist Name Role Phone Soniya Colon MD Primary Care Provider + Allergies Active Allergy Reactions Criticality Noted Date Comments Sulfamethoxazole-Trimetho prim Hives 04/06/2023 Other Reaction(s): Terbinafine Terbinafine Swelling 04/06/2023 SWOLLEN LIPS [place] Anaphylaxis High 11/10/2023 Medications SUMAtriptan (IMITREX) 50 [...] 009 HIB VACCINES Completed 11/26/1997, 05/1996, 1996 IPV VACCINES Completed 11/07/2000, 02/28, 02/26/1997, Additional history exists HEPATITIS A VACCINES Completed 04/14/2016, 12/27/19 15 MENINGOCOCCAL VACCINES (ACWY) Aged Out 05/16/2019, 01/12/2009 No longer eligibl e based on patient's age to complete this topic HEPATITIS C SCREENING Completed 11/06/2023, 024 HIV ONE-TIME SCREENING (18-65 YEARS) Completed 11/06/2023 [...] AM EDT) HCV NON-REACTIV E NON-REACTI VE [facility] Blood 11/06/2023 10:3 4 AM EDT 11/06/2023 10:42 AM EDT Miguel Aguayo MD LAB BLOOD BKR ORDERABLES Leigh Ann l Result [address] [address] from Last 3 Months or Most Recently Relevant to Health Maintenance [facility] Member Subscriber Plan / Payer (Ef fective 2022-) Name:Hernandez, Cande Relation to Subscriber:Self Name:Hernandez Cande Payer ID:Not on file Type:PPO Address: [address] [facility] Member Subscriber Plan / Payer (Ef fective 2022-) Name:Hernandez, Cande Relation to Subscriber:Self Name:Cande Hernandez Payer ID:Not on file Type:PPO Address: [address] [facility] Advance Directives For more information, please contact: [phone] (9AM - 5PM [place]/[facility], Monday-Monday) Documents on File Type Date Recorded Patient Community Affairs Director Expl anation Healthcare Proxy 11/17/2023 4:31 PM Care Teams Pathology Laboratory Technologist Relationship Specialty Start Date End Date Soniya Colon MD PCP - General Family Medicine 03/27/23 Additional Source Comments The information contained in this document represents components of the legal health record. It is not the complete legal health record.[facility]
--- OUTSIDE RECORDS SUMMARY | 2025-04-08 11:20 | XMS_ITS | Encounter Summary ---
Author Organization [employer] Address [address] [place] [address] [address] [place] [address] Care Team Providers Care Rental Manager Name Role Phone Soniya Colon MD Primary Care Provider [phone] Encounter Details Date Type Department Care Team ([facility] st Contact Info) Description 01/22/2025 Orders Only [facility] MEDICINE [address] [place] [address] Soniya Colon MD [address] [place] [address] Weight gain (Primary Dx) Social History Tobacco [...] the past 12 months, has t he [employer], gas, oil or water company threatened to [...] Description 05/14/2025 4:00 PM EST Office Visit [facility] MEDICINE [address] [place] [address] Soniya Colon MD [address] [place] [address] 07/02/2025 3:30 PM EST Office Visit [facility] OPTOMETRY [address] [place] [address] Katelyn Borjas, LISSETH [address] [place] [address] Scheduled Orders Name Type Priority Associated Diagnoses [...] documented as of this encounter Care Teams Rental Manager Relationship Specialty Start Date End Date Soniya Colon MD [address] [place] [address] PCP - General Family Medicine 01/19/21 documented as of this encounter
--- OUTSIDE RECORDS SUMMARY | 2025-04-08 11:20 | XMS_ITS | Clinical Summary ---
Author Organization [employer] Address [address] [place] [address] 7[address] [place] [address] Care Team Providers Care Delinquent Tax Collection Assistant Name Role Phone Soniya Colon MD Primary Care Provider [phone] Allergies Active Allergy Reactions Criticality Noted Date Comments [place] Flavoring Agent (Non-Screening) Anaphylaxis High 11/10/2023 Sulfamethoxazole [...] not trigger notification to Pharmacy)) sodium chloride ([place]) 0.65 % nasal spray 2 sprays in each nostril 4x/day prn 03/24/20 025 Discontinued(Me d list cleanup (will not trigger notification to Pharmacy)) neomycin-polym yxin-hydrocort isone (Cortisporin) 3.5-81715-9 otic suspension INSTILL 4 DROPS TO AFFECTED [...] notification to Pharmacy)) neomycin-polym yxin-dexAMETHa sone (Maxitrol) 3.5-31087-1.1 ophthalmic suspension INSTILL 1 DROP INTO AFFECTED [...] Pharmacy)) Vitamin A (beta carotene) 3 MG (03923 UT) tablet Take 1 tablet by mouth [...] 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, we [...] Department Care Team Description 04/02/2025 Orders Only [address] [address] Soniya Colon MD 03/31/2025 12:00 PM EST Office Visit [address] [address] Meri Haque DO SOB (shortness of breath) (Primary Dx) 03/31/2025 Orders Only GENERIC EXTERNAL DATA DEPARTMENT Provider, Generic External Data 03/31/[address] [address] Soniya Colon MD Care Coordination 03/31/2025 Travel 03/31/[address] [address] Soniya Colon MD Nurse Triage 03/24/2025 2:45 PM EDT Office Visit [address] [address] Soniya Colon MD History of mycoplasma pneumonia (Primary Dx); Prediabetes 03/24/2025 Travel 03/21/2025 Telephone [facility] [address] [place] [address] Soniya Colon MD chart prep 03/07/[address] [address] Soniya Colon MD Medication Question 03/06/2025 Patient Outreach [facility] MED [facility] PEDS [address] [place], [place] [phone] Soniya Colon MD Transition Of Care (Tcm) (HDF scheduled. ) 03/06/[address] [address] Soniya Colon MD Hospital Follow-up 03/05/2025 Orders Only [address] [address] Soniya Colon MD Pneumonia of left lung due to Mycoplasma pneumoniae, unspecified part of lung (Primary Dx) 02/28/[address] [address] Soniya Colon MD 02/26/2025 10:20 AM EDT [facility] [address] [address] Alissa May MD Moderate persistent asthma with exacerbation (Primary Dx); Cough, unspecified type; Fever, unspecified fever cause; Respiratory crackles 1/2 way up posterior chest wall on left side 02/26/2025 Orders Only GENERIC EXTERNAL DATA DEPARTMENT Provider, Generic External Data 02/26/2025 [facility]phone [facility] [address] [address] Soniya Colon MD 02/26/2025 Travel 01/22/2025 Orders Only [address] [address] Soniya Colon MD Weight gain (Primary Dx) 01/17/2025 Refill [facility] WALK-IN [address] [address] Renetta iFnney NP Situational anxiety 01/15/2025 Results Follow-Up [address] [address] Nicolette Landa CNM TSH W/Reflex to FT4, POCT Hemoglobin, CBC, Additional followed-up results: 2 01/14/2025 3:15 PM EDT Office Visit [address] [place] [address] Nicolette Landa CNM Abnormal uterine bleeding 01/14/2025 Orders Only [facility] [address] [facility] [place] [address] Nicolette Landa CNM 01/14/2025 Travel 01/07/2025 Orders Only [facility] [address] [place] [address] Nicolette Landa CNM Von Willebrand disease ([facility]) (Primary Dx) 01/06/2025 Telephone [facility] [address] [facility] [place] [address] Kaitlyn Lozano RN from Last 3 Months [...] 4:00 PM EST Office Visit [facility] MEDICINE [address] [place] [address] Soniya Colon MD [address] [place] [address] 07/02/2025 3:30 PM EST Office Visit [facility] OPTOMETRY [address] [place] [address] Katelyn Borjas, LISSETH [address] [place] [address] Health Maintenance Due Date Last Done Comments [...] 03/31/2025 5:10 PM EST COVID-19 ID NOW ([employer]) Routine 03/31/2025 3:49 PM EST STREP A NUCLEIC ACID Routine 03/31/2025 3:49 PM EST INFLUENZA A B2 ID NOW ([employer]) Routine 03/31/2025 3:49 PM EST XR CHEST [...] included. D Dimer High Sensitivity <150 NG/ML [facility] Comment:D-DIMER HS REFERENCE RANGENote: [...] Provider LAB BLOOD ORDERAB LES Final Result [facility] [address] [place] [phone] * Influenza A B2 ID NOW (Johnson) (03/31/2025 3:49 PM EST) IDNOW SERIAL# [id number] [facility] Influenza A Negative Negative [facility] Influenza B2 Negative Negative [facility] Influenza A B2 Note See Note [facility] Comment:The Johnson ID NOW [...] GENERAL ORDERABLES Final Result Performing Organization Address [facility] Co de Phone Number [facility] [address] [place] [phone] * Strep A Nucleic Acid (03/31/2025 3:49 PM EST) IDNOW SERIAL# [id number] [facility] Strep A Nucleic Acid Negative Negative [facility] Comment:All test results mus [...] GENERAL ORDERABLES Final Result Performing Organization Address [facility] Co de Phone Number [facility] [address] [place] [phone] * COVID-19 ID NOW (JOHNSON) (03/31/2025 3:49 PM EST) IDNOW SERIAL# [id number] [facility] COVID-19 TEST Negative Negative [facility] COVID-19 NOTE See Note [facility] Comment: Results are for the identification of SARS-CoV2 RNA. TheSARS-CoV2 RNA is generally detectable in respiratory samplesduring the acute phase of infection. Positive results areindicative of the presence of SARS-CoV-2 RNA; clinicalcorrelation with patient history and other diagnosticinformation is necessary to determine patient infectionstatus. Positive results do not rule out bacterial infectionor co- infection with other viruses.Testing facilities within the [facility] and [facility] are required to report all positive [...] use by authorized laboratories.Testing performed on the [place] NOW utilizing NAAT. 03/31/2025 3:49 PM EST 03/31/2025 3:56 PM EST us Generic External Data Provider LAB MOLECULAR MATEO GNOSTICS ORDERABLES Final Result [facility] [address] [place] [phone] * XR Chest 2 Views (03/31/2025 2:05 PM EST) Only the most recent of4 resultswithin the time period is included. Anatomical Region Laterality Modality Chest Radiographic Laney ging 03/31/2025 2:05 PM EST Narrative 03/31/2025 2:19 PM EST [address] [address] XRay Report Signed Patient: Cande Hernandez MR#: [id number] : 1995 Acct:[id number] Age/Sex: 29 / F ADM Date: 03/31/25 Loc: HO.ED Attending Dr: Ordering Physician: Linda Gilliam Date of Service: 03/31/25 Procedure(s): XR chest 2V Accession Number(s): [id number] cc: Linda Gilliam; Soniya Colon Reason for [...] by: David Downey MD 03/31/2025 02:16 PM [facility] Dictated By: David Downey MD Signed By: <Electronically signed by David Downey MD in OV> 03/31/25 1416 DD/ 1405 TD/TT: 03/31/25 1410 Placement Assistant: Procedure Note Donotuseinterpreter, Image - 03/31/[address] [address] XRay Report Signed Patient: Cande Hernandez KMR#: [id number] : 1995Acct:[id number] Age/Sex: 29 / FADM Date: 03/31/25 Loc: .ED Attending Dr: Ordering Physician: Linda Gilliam Date of Service: 03/31/25 Procedure(s): XR chest 2V Accession Number(s): [id number] cc: Linda Gilliam; Soniya Colon Reason for [...] 03/31/25 1416 DD/ 1405 TD/TT: 03/31/25 1410 Placement Assistant: [facility] External Provider IMG XR PROCEDURES Edited Result [...] AM EDT Narrative 02/28/2025 3:25 AM EDT [address] [address] XRay Report Signed Patient: Cande Hernandez MR#: [id number] : 1995 Acct:[id number] Age/Sex: 29 / F ADM Date: 02/26/25 Loc: [facility] 446-[address]: Jeanine Barker MD Ordering Physician: Jerel Hernadez MD Date of Service: 02/28/25 Procedure(s): XR chest 1V Accession Number(s): [id number] cc: Jerel Hernadez MD; Soniya Colon Reason [...] in OV> 02/28/25323 DD/ 032 TD/TT: 02/28/25321 Placement Assistant: Procedure Note Donotuseinterpreter, Image - 02/28/2025 [place] [address] XRay Report Signed Patient: Cande Hernandez KMR#: [id number] : 1995Acct:[id number] Age/Sex: 29 / FADM Date: 02/26/25 Loc: [facility] 446-[address]: Jeanine Barker MD Ordering Physician: Jerel Hernadez MD Date of Service: 02/28/25 Procedure(s): XR chest 1V Accession Number(s): [id number] cc: Jerel Hernadez MD; Soniya Colon Reason [...] in OV> 02/28/25323 DD/ 1 TD/TT: 02/28/25321 Placement Assistant: [facility] External Provider IMG XR PROCEDURES Edited Result - Final * (ABNORMAL) Lactic Acid (02/26/2025 6:48 PM EDT) Lactic Acid 2.1(HH) 0.5 - 2.0 mmol/L [facility] Comment:Critical value for t est(s): LA Results called to and readback by: MOOSE Person calling:[email or web address] Date:[id number]:[id number] 02/26/2025 6:48 PM EDT 02/26/2025 6:53 PM EDT Generic External Data Provider LAB BLOOD ORDERAB LES Final Result [facility] [address] [place] [phone] * CTA Chest PE Protocal (02/26/2025 4:40 PM EDT) Anatomical Region Laterality Modality Body, Chest Computed Tomogra phy 02/26/2025 4:40 PM EDT Narrative 02/26/2025 5:06 PM EDT [address] [address] [address] Scan Report Signed Patient: Cande Hernandez MR#: [id number] : 1995 Acct:[id number] Age/Sex: 29 / F ADM Date: 02/26/25 Loc: HO.ED Attending Dr: Ordering Physician: Al Erickson Date of Service: 02/26/25 Procedure(s): CT angio chest PE protocol Accession Number(s): [id number] cc: Soniya Colon; Al Erickson Report Number: [id number]: Total DLP = 360.00 mGy-cm Reason for [...] 02/26/25 1702 DD/ 1640 TD/TT: 02/26/25 1650 Placement Assistant: Procedure Note Donotuseinterpreter, Image - 02/26/[address] [place] [address] [address] Scan Report Signed Patient: Cande Hernandez KMR#: [id number] : 1995Acct:[id number] Age/Sex: Date: 02/26/25 Loc: .ED Attending Dr: Ordering Physician: Al Erickson Date of Service: 02/26/25 Procedure(s): CT angio chest PE protocol Accession Number(s): [id number] cc: Nataliya Colon Daniel Report Number: [id number]: Total DLP = 360.00 mGy-cm Reason for [...] 02/26/25 1702 DD/ 1640 TD/TT: 02/26/25 1650 Placement Assistant: [facility] External Provider IM CT PROCEDURES Final Result * (ABNORMAL) Lactic Acid (02/26/2025 4:34 PM EDT) Pathologist [facility] Lactic Acid 4.0(HH) 0.5 - 2.0 mmol/L [facility] Comment:Critical value for t est(s): LACTA Results called to ruel back by: FARZANA Person calling: [email or web address] Date:02/26/25 Time:1654 02/26/2025 4:34 PM EDT 02/26/2025 4:37 PM EDT Generic External Data Provider LAB BLOOD ORDERAB LES Final Result Performing Organization Address [facility] de Phone Number [facility] [address] [place] [phone] * (ABNORMAL) High Sensitivity Troponin I (02/26/2025 4:06 PM EDT) Only the most recent of2 resultswithin the time period is included. Pathologist [facility] TROPONIN I HIGH SENSITIVITY 34.7(H) <3.5 - 17.0 ng/L [facility] Comment:The Johnson high sens itivity Troponin-I results should beused in conjunction with other diagnostic information suchas ECG, clinical observations and information, and patientsymptoms to aid in the diagnosis of NV. 02/26/2025 4:06 PM EDT 02/26/2025 4:10 PM EDT Generic External Data Provider LAB BLOOD ORDERAB LES Final Result Performing Organization Address [facility] Co de Phone Number [facility] [address] [place] [phone] * TSH with Reflex to Free T4 (02/26/2025 1:15 PM EDT) Only the most recent of2 resultswithin the time period is included. Pathologist [facility] TSH reflex Free T4 1.00 0.32 - 4.0 uIU/mL [facility] 02/26/2025 1:15 PM EDT 02/26/2025 1:18 PM EDT us Generic External Data Provider LAB BLOOD ORDERAB LES Final Result [facility] [address] [place] [phone] * (ABNORMAL) CBC auto differential (02/26/2025 1:15 PM EDT) White Blood Count 11.0(H) 4.8 - 10.8 X10*3/uL [facility] Red Blood Count 4.75 4.20 - 5.50 X10*6/uL [facility] Hemoglobin 13.3 12.0 - 16.0 g/dl [facility] Hematocrit 38.2 37.0 - 47.0 % [facility] Mean Corpuscular Volume 80.4 80.0 - 98.0 fL [facility] Mean Corpuscular Hemoglobin 28.0 27.0 - 33.0 pg [facility] Mean Corpuscular HGB Conc 34.8 31.0 - 35.0 g/dl [facility] Red Cell Distribution Width 13.2 11.0 - 16.0 % [facility] Platelet Count 234 160 - 400 X10*3/uL [facility] Mean Platelet Volume 9.3(L) 9.4 - 12.3 fL [facility] Neutrophils Percent Auto 85.7(H) 45 - 73 % [facility] Imm Gran Pct Auto 0.5(H) 0.0 - 0.4 % [facility] Lymphocytes Percent Auto 6.1(L) 20 - 40 % [facility] Monocytes Percent Auto 7.4 2 - 11 % [facility] Eosinophils Percent Auto 0.1 0 - 4 % [facility] Basophils Percent Auto 0.2 0 - 2 % [facility] NRBC Pct Auto 0.0 0.0 - 0.2 /100WBC [facility] Neutrophils Absolute Auto 9.4(H) 2.0 - 8.3 x10*3/uL [facility] Imm Gran Abs Auto 0.05(H) 0.00 - 0.03 X10*3/uL [facility] Lymphocytes Absolute Auto 0.7(L) 1.2 - 4.9 X10*3/uL [facility] Monocytes Absolute Auto 0.8 0.1 - 1.2 X10*3/uL [facility] Eosinophils Absolute Auto 0.0 0.0 - 0.4 X10*3/uL [facility] Basophils Absolute Auto 0.0 0.0 - 0.2 X10*3/uL [facility] NRBC Abs Auto 0.000 0.0 - 0.012 X10*3/uL [facility] 02/26/2025 1:15 PM EDT 02/26/2025 1:18 PM EDT us Generic External Data Provider LAB BLOOD ORDERAB LES Final Result [facility] [address] [place] [phone] * hCG, Total, Quantitative (02/26/2025 1:15 PM EDT) HCG Quantitative <2 mIU/mL [facility] Comment:Weeks post LMP Appro ximate hCG(Last Menstrual Period) Range (mIU/ml)3 - 4 weeks 9 - 1304 - 5 weeks 75 - 2,6005 - 6 weeks 850 - 20,8006 - 7 weeks 4000 - 100,2007 - 12 weeks 11,500 - 289,00934 - 16 weeks 18,300 - 137,98294 - 29 weeks (2nd trimester) 1,400 - 53,21457 - 41 weeks (3rd trimester) 940 - [...] Final Result Performing Organization Address [facility] Co de Phone Number [facility] [address] [place] [phone] * Magnesium (02/26/2025 1:15 PM EDT) Magnesium 2.1 1.6 - 2.6 mg/dL [facility] 02/26/2025 1:15 PM EDT 02/26/2025 1:18 PM EDT Generic External Data Provider LAB BLOOD ORDERAB LES Final Result Performing Organization Address [facility] Phone Number [facility] [address] [place] [phone] * (ABNORMAL) Hepatic Function Panel (02/26/2025 1:15 PM EDT) Bilirubin, Total 0.3 0.0 - 1.0 mg/dL [facility] Bilirubin, Direct 0.1 0.0 - 0.5 mg/dL [facility] Aspartate Amino Transferase 56(H) 5 - 31 U/L [facility] Alanine Aminotransferase 40(H) 0 - 31 U/L [facility] Total Protein 7.2 6.5 - 8.0 g/dL [facility] Albumin Level 4.4 3.5 - 5.0 g/dL [facility] Alkaline Phosphatase 72 39 - 117 U/L [facility] 02/26/2025 1:15 PM EDT 02/26/2025 1:18 PM EDT Generic External Data Provider LAB BLOOD ORDERAB LES Final Result Performing Organization Address [facility] Co de Phone Number [facility] [address] [place] [phone] * (ABNORMAL) Basic Metabolic Panel (02/26/2025 1:15 PM EDT) Sodium 137 135 - 145 mmol/L [facility] Potassium 4.2 3.3 - 5.1 mmol/L [facility] Chloride 103 96 - 108 mmol/L [facility] Carbon Dioxide 24 22 - 29 mmol/L [facility] Anion Gap 14 12 - 20 [facility] Urea Nitrogen (BUN) 6(L) 9 - 16 mg/dL [facility] Creatinine, Serum 0.65 0.5 - 1.4 mg/dL [facility] Creatinine Clr Calc Pharmacy 128.2 [facility] Comment:Provided height and weight: 157.48 cm,82.4 kg.eGFR (calculated from the MDRD study equation) and eCrCl(calculated from the Cockcroft-Gault equation) are based ondifferent parameters and may not yield comparable results.If eCrCl result is absurd, please check patient'sheight/weight. Estimated Glomerular Filt Rate >60 [facility] Comment:Chronic Kidney Disea se: Estimated GFR < 60 mL/min/1.18c2Lqldru Kidney Disease: Estimated GFR < 15 mL/min/1.73m2 Glucose 193(H) 60 - 115 mg/dL [facility] Calcium 9.0 8.4 - 10.2 mg/dL [facility] 02/26/2025 1:15 PM EDT 02/26/2025 1:18 PM EDT us Generic External Data Provider LAB BLOOD ORDERAB LES Final Result [facility] [address] [place] [phone] * POCT Rapid Influenza B JOHNSON ID NOW (02/26/2025 10:37 AM EDT) Influenza B Negative Negative, Indeterminate [facility] QC Media Lot # [id number] [facility] Lot# Expiration Date ,026 [facility] Swab 02/26/2025 10:3 7 AM EDT Alissa May MD POINT OF CARE TEST ENTER/EDIT ORDERABLES Final Result Performing Organization Address [facility] Co de Phone Number [facility] [address] [place] [phone] * POCT Rapid Influenza A JOHNSON ID NOW (02/26/2025 10:36 AM EDT) Influenza A Negative Negative, Indeterminate [facility] QC Media Lot # [id number] [facility] Lot# Expiration Date [id number] [facility] Swab 02/26/2025 10:3 6 AM EDT Alissa May MD POINT OF CARE TEST ENTER/EDIT ORDERABLES Final Result Performing Organization Address [facility] de Phone Number [facility] [address] [place] [phone] * POCT Rapid Covid-19 JOHNSON ID NOW (02/26/2025 10:35 AM EDT) Pathologist [facility] Coronavirus Antigen PCR Negative Negative, Indeterminate, None Detected, Invalid, Specimen unsatisfactory for evaluation, Weakly Positive, 2+ QC Media Lot # [id number] Lot# Expiration Date ,016 Swab 02/26/2025 10:3 5 AM EDT Alissa May MD POINT OF CARE TEST ENTER/EDIT ORDERABLES Final Result * (ABNORMAL) Iron And Total Iron Binding Capacity (01/14/2025 3:55 PM EDT) Iron 35 30 - 160 mcg/dL [facility] Comment:Slight Hemolysis.Int erpret result with caution. Total Iron Binding Capacity 347 228 - 428 mcg/dL [facility] Percent Iron Saturation 10(L) 15 - 50 % [facility] Unsaturated Iron Binding 312 ug/dL [facility] Blood Venous blood specimen / Unknown 01/14/2025 3:55 PM EDT 01/14/2025 6:21 PM EDT Nicolette Landa [facility] LAB BLOOD ORDERABLES Leigh Ann l Result [facility] [address] [place] [phone] * CBC (01/14/2025 3:55 PM EDT) White Blood Count 8.8 4.8 - 10.8 X10*3/uL [facility] Red Blood Count 4.69 4.20 - 5.50 X10*6/uL [facility] Hemoglobin 13.0 12.0 - 16.0 g/dl [facility] Hematocrit 39.6 37.0 - 47.0 % [facility] Mean Corpuscular Volume 84.4 80.0 - 98.0 fL [facility] Mean Corpuscular Hemoglobin 27.7 27.0 - 33.0 pg [facility] Mean Corpuscular HGB Conc 32.8 31.0 - 35.0 g/dl [facility] Red Cell Distribution Width 13.6 11.0 - 16.0 % [facility] Platelet Count 277 160 - 400 X10*3/uL [facility] Mean Platelet Volume 11.5 9.4 - 12.3 fL [facility] NRBC Pct Auto 0.0 0.0 - 0.2 /100WBC [facility] NRBC Abs Auto 0.000 0.0 - 0.012 X10*3/uL [facility] Blood Venous blood specimen / Unknown 01/14/2025 3:55 PM EDT 01/14/2025 6:21 PM EDT Nicolette Landa [facility] LAB BLOOD ORDERABLES Leigh Ann l Result [facility] [address] [place] [phone] * T4, Free (01/14/2025 3:55 PM EDT) Free T4 (Free Thyroxine) 1.13 0.71 - 1.85 ng/dL [facility] 01/14/2025 3:55 PM EDT 01/14/2025 6:21 PM EDT [facility] BLOOD ORDERABLES Leigh Ann l Result Performing Organization Address City/[facility]/ZIP Co de Phone Number [facility] [address] [place] [phone] * Ferritin (01/14/2025 3:55 PM EDT) Pathologist [facility] Ferritin 64 10 - 122 ng/mL [facility] Blood Venous blood specimen / Unknown 01/14/2025 3:55 PM EDT 01/14/2025 6:21 PM EDT [facility] LAB BLOOD ORDERABLES Leigh Ann l Result Performing Organization Address City/[facility] Co de Phone Number [facility] [address] [place] [phone] * POCT Hemoglobin (01/14/2025 3:29 PM EDT) Pathologist [facility] Hemoglobin 12.7 12.0 - 15.0 QC Media Lot # [id number] Lot# Expiration Date [id number] Blood 01/14/2025 3:29 PM EDT [facility] POINT OF CARE TEST ENTER/ EDIT ORDERABLES Final Result * Pap Smear (09/17/2024 12:00 AM EDT) Swab Cervical swab / Unknown 09/17/2024 09/18/2024 10:15 AM EDT [facility] - 09/20/2024 10:37 AM EDT ----- ------- Name: Cande Hernandez Age/Sex: 29/F : 1995 Unit#: [id number] Attend Dr: Soniya Colon Re09/17/24 Status: [facility] Disch: ----- ------- SPEC : [id number] RECD: 09/18/24-1015 STATUS: JOSE RAUL BURCIAGA NUM: [id number] [place]: 09/17/24-[address]: Soniya Colon ENTERED: 09/18/24-1040 SP TYPE: Pap Smr [facility] DR: ORDERED: Pap Smear Interpretation Satisfactory for evaluation. Negative for intraepithelial lesion or malignancy. Mild inflammation. Clinical Information LMP: Unknown date Previous PAP test: Unknown date, WNL Material Received ThinPrep-Cervical ----- ------- Signed (signature on file) LEYDI Kyle ([facility]) 09/20/24 1037 ----- ------- END OF REPORT us Soniya Colon MD LAB CYTOLOGY ORDERABLES Final Result [facility] [address] [place] [address] [phone] from Last 3 Months or Most Recently Relevant to Health Maintenance Insurance [facility] H[facility] [place] [facility] - HSN PARTIAL (MEDICAID) Care Teams Delinquent Tax Collection Assistant Relationship Specialty Start Date End Date Soniya Colon MD [address] [place] [id number] PCP - General Family Medicine 01/19/21
--- OUTSIDE RECORDS SUMMARY | 2025-04-08 11:20 | XMS_ITS | Encounter Summary ---
Author Organization [employer] Address [address] [place] [address] 7 [place] [address] Care Team Providers Care Piece Jobber Name Role Phone Soniya Colon MD Primary Care Provider [phone] Reason for Visit * Reason Onset Date Comments Hospital Follow-up 03/06/2025 Encounter Details Date Type Department Care Team ([facility] st Contact Info) Description 03/06/2025 Telephone [facility] MEDICINE [address] [place], [place] [phone] Sonyia Colon MD [address] [place], [place] [phone] Hospital Follow-up Social History Tobacco Use Types [...] from pt requesting a HDF appt. Hospital: [facility] Date of admission: 02/26 Discharge date: 03/05 Diagnosed: pneumonia both lungs , glucose all over the place *Send message to [place] Clinical Care Coordinators Contact pt at [phone] documented in this encounter Plan of Treatment Upcoming Encounters Date Type Department Care Team ([facility] st Contact Info) Description 05/14/2025 4:00 PM EST Office Visit [facility] MEDICINE [address] [place] [address] Soniya Colon MD [address] [place] [address] 07/02/2025 3:30 PM EST Office Visit [facility] OPTOMETRY [address] [place], [place] [phone] [place], Katelyn, OD [address] [place] [address] documented as of this encounter Visit Diagnoses Not on filedocumented in this encounter Additional Health Concerns Assessment Noted Time PHQ-9 Depression Total Score: 4 03/25/20 24 2:12 PM EDT documented as of this encounter Care Teams Piece Jobber Relationship Specialty Start Date End Date Soniya Colon MD [address] [place], [place] [phone] PCP - General Family Medicine 01/19/21 documented as of this encounter
--- OUTSIDE RECORDS SUMMARY | 2025-04-08 11:20 | XMS_ITS | Encounter Summary ---
Author Organization [employer] Address [address] [place] [address] 7 [place] [address] Care Team Providers Care Helper Shear Operator Name Role Phone Soniya Colon MD Primary Care Provider [phone] Reason for Visit * Reason Comments Med Refill Encounter Details Date Type Department Care Team (Late st Contact Info) Description 07/06/2022 Refill [facility] CHC MED & PEDS [address] [place], [place] [phone] Sohail Rouse MD [address] [place] [address] [phone] Social History Tobacco Use Types Packs/Day Years [...] Description 05/14/2025 4:00 PM EST Office Visit [facility] MEDICINE [address] [place] [address] [phone] Soniya Colon MD [address] [place] [address] [phone] 07/02/2025 3:30 PM EST Office Visit [facility] OPTOMETRY [address] [place] [address] Katelyn Borjas, OD [address] [place], [place] [phone] documented as of this encounter Visit Diagnoses Not on filedocumented in this encounter Care Teams Helper Shear Operator Relationship Specialty Start Date End Date Soniya Colon MD [address] [place], [place] [phone] PCP - General Family Medicine 01/19/21 documented as of this encounter
--- OUTSIDE RECORDS SUMMARY | 2025-04-08 11:20 | XMS_ITS | Encounter Summary ---
Author Organization [employer] Address [address] [place] [address] 7 [place] [address] Care Team Providers Care Quality Coordinator Name Role Phone Soniya Colon MD Primary Care Provider [phone] Encounter Details Date Type Department Care Team (Late st Contact Info) Description 01/10/2023 Orders Only [facility] MEDICINE [address] [place] [address] [phone] Soniya Colon MD [address] [place] [address] [phone] Migraine without aura and with status migrainosus, [...] Description 05/14/2025 4:00 PM EST Office Visit [facility] MEDICINE [address] [place], [place] [phone] Soniya Colon MD [address] [place], [place] [phone] 07/02/2025 3:30 PM EST Office Visit [facility] OPTOMETRY [address] [place] [phone] Katelyn Borjas, OD [address] [place] [address] documented as of this encounter Visit Diagnoses Diagnosis Migraine without aura and with status migrainosus, not intractable- Primary documented in this encounter Care Teams Quality Coordinator Relationship Specialty Start Date End Date Soniya Colon MD [address] [place] [address] PCP - General Family Medicine 01/19/21 documented as of this encounter
--- OUTSIDE RECORDS SUMMARY | 2025-04-08 11:20 | XMS_ITS | Encounter Summary ---
Author Organization [employer] Address [address] [place] [address] 7 [place] [address] Care Team Providers Care Marketing Business Analyst Name Role Phone Soniya Colon MD Primary Care Provider [phone] Reason for Referral * Consultation (Routine) - Closed Specialty Diagnoses / Procedures Referred By Izaiah mcleod Referred To Contact Urology Diagnoses Kidney stone Soniya Colon MD [address] [place] [address] Phone: tel: fax: [facility] Urology [address] [place] [address] [place] [address] Phone: tel: fax: Referral ID Status Reason Start Date Expiration Date V isits Requested Visits Authorized [id number] Closed Specialty Services Required 09/09/2024 09/09/2025 1 1 Encounter Details Date Type Department Care Team (Late st Contact Info) Description 09/09/2024 Orders Only [facility] MEDICINE [address] [place] [address] Soniya Colon MD [address] [place], [place] [phone] Kidney stone (Primary Dx) Social History Tobacco [...] Description 05/14/2025 4:00 PM EST Office Visit [facility] MEDICINE [address] [place] [address] Soniya Colon MD [address] [place] [address] 07/02/2025 3:30 PM EST Office Visit [facility] OPTOMETRY [address] [place] [address] Katelyn Borjas, LISSETH [address] [place] [address] documented as of this encounter Procedures Procedure Name Priority Date/Time Associated Diagnosis Comments AMB REFERRAL TO UROLOGY Routine 09/13/2024 Kidney stone documented in this encounter Results * Referral to Urology (09/13/2024) Soniay Colon MD OUTPATIENT REFERRAL ORDERABLES Final Result documented in this encounter Visit Diagnoses Diagnosis Kidney stone- Primary Calculus of kidney documented in this encounter Additional Health Concerns Assessment Noted Time PHQ-9 Depression Total Score: 4 03/25/20 24 2:12 PM EDT documented as of this encounter Care Teams Marketing Business Analyst Relationship Specialty Start Date End Date Soniya Colon MD [address] [place] [address] PCP - General Family Medicine 01/19/21 documented as of this encounter
--- OUTSIDE RECORDS SUMMARY | 2025-04-08 11:20 | XMS_ITS | Encounter Summary ---
Author Organization [employer] Address [address] [place] [address] 7t [place] [address] Care Team Providers Care Milk Handler Name Role Phone Soniya Colon MD Primary Care Provider [phone] Reason for Referral * Consultation (Routine) - Closed Specialty Diagnoses / Procedures Referred By Contkiarra t Referred To Contact Pulmonary Disease Diagnoses Pneumonia of left lung due to Mycoplasma pneumoniae, unspecified part of lung Soniya Colon MD [address] [place] [address] Phone: tel: fax: [facility] Pulmonary [address] Floor [place], [place] Phone: tel: fax: Referral ID Status Reason Start Date Expiration Date V isits Requested Visits Authorized [id number] Closed Specialty Services Required 03/05/2025 03/05/2026 1 1 Encounter Details Date Type Department Care Team (Late st Contact Info) Description 03/05/2025 Orders Only [facility] MEDICINE [address] [place] [address] Soniya Colon MD [address] [place], [place] [phone] Pneumonia of left lung due to Mycoplasma [...] 4:00 PM EST Office Visit [facility] MEDICINE [address] [place] [address] Soniya Colon MD [address] [place] [address] 07/02/2025 3:30 PM EST Office Visit [facility] OPTOMETRY [address] [place] [address] [place]io, Katelyn, OD [address] [place] [address] Scheduled Referrals Name Type Priority Associated Diagnoses [...] PM EST Narrative 03/31/2025 2:19 PM EST [facility] [address] [place] [address] XRay Report Signed Patient: Cande Hernandez MR#: [id number] : 1995 Acct:[id number] Age/Sex: 29 / F ADM Date: 03/31/25 Loc: .ED Attending Dr: Ordering Physician: Linda Gilliam Date of Service: 03/31/25 Procedure(s): XR chest 2V Accession Number(s): [id number] cc: Linda Gilliam; Soniya Colon Reason for [...] 03/31/25 1416 DD/ 1405 TD/TT: 03/31/25 1410 Information Systems Audit Manager: Procedure Note Donotuseinterpreter, Image - 03/31/2025 [place] [address] XRay Report Signed Patient: Cande Hernandez KMR#: [id number] : 1995Acct:[id number] Age/Sex: 29 FADM Date: 03/31/25 Loc: .ED Attending Dr: Ordering Physician: Linda Gilliam Date of Service: 03/31/25 Procedure(s): XR chest 2V Accession Number(s): [id number] cc: Linda Gilliam; Soniya Colon Reason for [...] 03/31/25 1416 DD/ 1405 TD/TT: 03/31/25 1410 Information Systems Audit Manager: us [facility] External Provider IMG XR PROCEDURES Edited Result - Final documented in this encounter Visit Diagnoses Diagnosis Pneumonia of left lung due to Mycoplasma pneumoniae, unspecified part of lung- Primary documented in this encounter Additional Health Concerns Assessment Noted Time PHQ-9 Depression Total Score: 4 03/25/20 24 2:12 PM EDT documented as of this encounter Care Teams Milk Handler Relationship Specialty Start Date End Date Soniya Colon MD [address] [place] [address] PCP - General Family Medicine 01/19/21 documented as of this encounter
--- OUTSIDE RECORDS SUMMARY | 2025-04-08 11:20 | XMS_ITS | Encounter Summary ---
Author Organization [employer] [facility] Address [facility] [employer] [facility] [address] [place] [phone] Phone Care Team Providers Care Controls Designer Name Role Phone Soniya Colon MD Primary Care Provider + Encounter Details Date Type Department Care Team (Late st Contact Info) Description 11/16/2023 Procedure Pass OR Admitting Dept - Virtual Department [address] [place] [address] Social History Tobacco Use Types Packs/Day Years [...] on filedocumented in this encounter Care Teams Controls Designer Relationship Specialty Start Date End Date Soniya Colon MD PCP - General Family Medicine 03/27/23 documented as of this encounter Additional Source Comments The information contained in this document represents components of the legal health record. It is not the complete legal health record.[facility]
== END ==
LOC: HO.CARD 09:58
PROVIDERS: PCP General Practice; Visit Provider Family Medicine
DX: R06.02 Shortness of breath (principal)
CPT/HCPCS: 93306

== ENCOUNTER → 2025-04-08 10:02 | Outpatient (BNV) | payer BC, SELFPAY | PROVIDERS: PCP General Practice; Visit Provider Internal Medicine Cardiovascular Disease | DX: R06.02 Shortness of breath (principal) | CPT/HCPCS: 93306 ==

== ENCOUNTER 2025-04-14 10:11 | Outpatient (AMB) | payer BC, SELFPAY ==
[2025-04-14 10:13] VITALS: BP 128/74; PULSE 95; O2SAT 98; BMI 33.9
--- NOTE | 2025-04-14 10:13 | MHC.OFFVIS ---
Vital Signs 04/14/25 10:13 Height 5 ft 2 in Weight 185 lb 3.013 oz BMI 33.9 BP 128/74 Blood Pressure Location Lt brachial Position Sitting Pulse 95 Pulse Source Pulse Oximeter Pulse Oximetry (%) 98 Oxygen Delivery Method Room Air Intake Visit Reasons: Mycoplasma Pneumonia Search Strategist Required: No Accompanied by: Self / Same As Patient Allergies terbinafine (TERBINAFINE) Allergy (Severe, Verified 04/14/25 10:16) ANAPHYLAXIS sulfamethoxazole (From Bactrim) Allergy (Verified 04/14/25 10:16) Angioedema trimethoprim (From Bactrim) Allergy (Verified 04/14/25 10:16) Angioedema HPI Comments Details: The patient is a 29 year woman previously healthy presenting with worsening respiratory symptoms cough. She came to the ER. She was found to have and abnormal chest x-ray and ultimately had a CT scan of the chest which was personally by me. Significant airspace disease and consolidations bilaterally left more than right. The patient is placed on oxygen and oxygen requirements have not been going up. She has been using the incentive spirometer and also has not Aerobika. She has been using it regularly. She was started on Solu-Medrol today and continues on azithromycin and ceftriaxone for the community-acquired pneumonia. There is a family history of asthma although she has never been diagnosed with asthma. She is getting respiratory treatments regularly. At this time will going to continue with the current respiratory regimen will request additional blood work. 04/04/2025 the patient is here for a hospital follow-up visit. She was treated for the community-acquired pneumonia and severe asthma exacerbation. She has been discharged now for about a month. She is having hard time with the breathing. Still having shortness breath chest tightness. She is currently on 40 mg of prednisone. She has been using Symbicort. She also has a nebulizer that she has barring. The patient is still having hard time with the breathing. In the office she still has wheezing. I did give her 2 Xopenex treatments. In addition to that we did give her Solu-Medrol 125 mg IM x1 and she will taper down the prednisone. We did review her blood work. In addition to having the positive respiratory panel for the mycoplasma the patient also had significant eosinophilia up to 700. Therefore the patient has significant eosinophilic asthma along with her significant recent infection. She did have an x-ray which I personally reviewed demonstrating interval resolution of the airspace disease which is reassuring. Will go ahead and optimize her respiratory therapy by adding Spiriva to her Symbicort which she can use on a maintenance dose. And she needs to start using her nebulizer more often 2 to 3 times a day. The patient also be a great candidate for Fasenra. Will go ahead and request a prescription at this time to try to get her off the prednisone that she has been on now for couple months. 04/14/2025 the patient is here for hospital follow-up visit. She is feeling a lot better. She still has some pleuritic discomfort in the left side. Explained to her that she had a very extensive pneumonia and the pleural line will still be inflamed to some degree. But deep breathing is safe for her to do. The patient did have a chest x-ray during the last visit and it showed that there was significant clearing of the left-sided pneumonia. She is scheduled to undergo a CT scan soon will follow up with those results once available. She did start the Spiriva and seems to be effective along with the Symbicort she is taking them regularly. She is going to be completing the doxycycline tomorrow which is perfectly fine. On exam her respiratory exam is reassuring. She does have some tenderness over the costochondral joints and therefore she may have a component of chondritis as well affecting her left side pain. She will get the flu shot today. She will get the pneumonia vaccine at the pharmacy. And will follow-up in 4-6 months. If any issues arise or any significant findings on the CAT scan we will address those issues based on the forthcoming data. [facility] Medical History (Updated 04/14/25 @ 19:19 by Ruben Brown MD) Asthma ETD (eustachian tube dysfunction) Menorrhagia Dermatitis Subacromial bursitis of left shoulder joint Rhabdomyolysis Fatty liver Pyelonephritis Encounter for screening examination for sexually transmitted disease Abnormal uterine bleeding Acute UTI (urinary tract infection) Low back pain, unspecified Advised about oral contraception Migraine without aura and with status migrainosus, not intractable Obesity, class 1 Gain of weight Right lower quadrant pain Panic attack Seasonal allergies Anxiety Von Willebrand disease, unspecified Contact dermatitis Kidney stones Surgical History History of esophagogastroduodenoscopy (EGD) Hx of cholecystectomy Family History Mother Diabetes HTN (hypertension) Paternal Grandfather HTN (hypertension) Paternal Grandmother HTN (hypertension) Maternal Grandfather HTN (hypertension) Maternal Grandfather HTN (hypertension) Diabetes Maternal Grandmother HTN (hypertension) Social History Household Members: Family Housing: House Alcohol intake: never Comment: low fall risk Patient Tobacco Use Status: Never used Tobacco service: No Current occupational status: employed and other 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 Review of Systems Const Denies fever(s) Eyes Reports no additional complaints ENT Denies sore throat Card Denies chest pain Resp Reports cough, Reports pain on inspiration, Reports pain with cough and Denies wheezing GI Reports no additional complaints Musc Reports no additional complaints Skin/Breast Denies rash Neuro Reports no additional complaints Endo Reports no additional complaints Alexy/Lymph Reports no additional complaints Aller/Immun Denies wheezing Physical Exam Vital Signs: Last Vital Signs Pulse 95 04/14/25 10:13 BP 128/74 04/14/25 10:13 Pulse Ox 98 04/14/25 10:13 Oxygen Delivery Method Room Air 04/14/25 10:13 BMI result Body Mass Index 33.9 Last Vital Signs Temp 98.7 F 03/02/25 07:29 Pulse 100 03/02/25 07:57 Resp 15 03/02/25 07:57 BP 113/72 03/02/25 07:29 Pulse Ox 95 03/02/25 07:29 O2 Del Method Oxymask 03/02/25 07:29 O2 Flow Rate 5 03/02/25 07:29 BMI result Body Mass Index 35.4 Const General: healthy appearing, comfortable, no acute distress, alert and awake Nutritional Appearance: well nourished Orientation/consciousness: patient oriented x3 HEENT Head: Yes normocephalic and Yes atraumatic Eyes Eyelids: Yes eyelids normal Conjunctivae: conjunctivae normal Sclerae: sclerae normal Corneas: corneas normal Pupils: Equal, round and reactive pupils present EOM: EOMs intact bilaterally Neck Neck: Yes full ROM Chest Chest palpation & inspection: tenderness rib and costochondral junction Resp Effort & Inspection: normal respiratory effort Auscultation: no rhonchi, no wheezes and diminished lung sounds Cardio Rate: regular rate Rhythm: regular rhythm GI Inspection: No distended Palpation (GI): Soft to palpation, not firm, nontender, no guarding and not rigid Skin General skin exam: elasticity normal Neuro General: patient oriented x3 Cranial nerves: Yes Equal, round and reactive pupils present and Yes Bilaterally intact EOM present Cognition (Neuro): normal cognition Office Procedures Flu Questionnaire Does the patient have a severe egg allergy?: No Does the patient have severe life threatening allergies?: No Does the patient have a fever or illness today?: No Has the patient ever had Guillain-[place] Syndrome?: No Has the patient ever had any past reaction to a flu shot?: No Immunizations Fluarix [id number] (PF) 45 mcg (15 mcg x 3)/0.5 mL IM syringe Performing Provider: Ruben Brown MD Performing Location: [facility] Pulmonology Services Administered by: Maya Eden RN on 04/14/25 10:44 Dose Route Admin Location Dispensed Lot Number Expiration Date NDC Auto Fleet Maintenance Manager 0.5 mL IM Right Deltoid 0.5 mL [id number] 11/25/25 23266-017-22 [employer] VIS Given Date VIS Provided VIS Publication Date 04/14/25 Single Vaccine 24 Eligibility Eligibility Date Funding Source Not [facility] Eligible 04/14/25 Private Assessment & Plan Assessment & Plan (1) Asthma: Code(s): J45.909 - Unspecified asthma, uncomplicated Category: Medical Qualifiers: Asthma complication type: uncomplicated Asthma persistence: persistent Asthma severity: moderate Qualified Code(s): J45.40 - Moderate persistent asthma, uncomplicated (2) Community acquired pneumonia: Code(s): J18.9 - Pneumonia, unspecified organism Category: Medical Qualifiers: Laterality: unspecified laterality Qualified Code(s): J18.9 - Pneumonia, unspecified organism Plan continue Symbicort continue Spiriva complete Doxycycline NSAIDS as needed Nebulizer CT chest F/u 3-4 months Orders: Orders Influenza [id number] Immunization Today Z23 - Encounter for immunization Coding Level of Care Code Est Pt Level 4 (61193) Diagnoses Moderate persistent asthma without complication J45.40 Asthma complication type: uncomplicated Asthma persistence: persistent Asthma severity: moderate Community acquired pneumonia, unspecified laterality J18.9 Laterality: unspecified laterality Time Spent (min) 16
--- OUTSIDE RECORDS SUMMARY | 2025-04-14 21:14 | XMS_ITS | Data Portability ---
Author Organization [facility], Allergy Address [address] [address] Care Team Providers Care Utility Aide Name Role Phone MAGY MANUEL Primary Care [...] Details Recorded Time Abnormal auditory percepti on 51703761 Active 2022 Other abnormal auditory percepti ons, bilatera l; Note: Date Diagnose d: 3 3:37 PM (H93.293 ) Not Available [facility] 4 02:45:42 Infectiv e otitis externa of bilatera l ears [id number] 42767 Completed 202212/29/2023 Other infectiv e otitis externa, bilatera l; Note: Date Diagnose d: 3 2:50 PM (H60.393 ) Not Available [facility] 4 02:45:39 Acute sinusiti s 63638912 Active 2024 ARSEN GOODMAN PA-C [address] [place] [address],[facility] 100, [facility] [place], [address] , [facility] - [facility] 5 15:47:08 Problem Notes None recorded. Medical Equipment None Reported. Allergies Allergen ID Allergen Name Allergen Category Reaction Reaction Severity Criticality Documentation Date Start Date Code Code System Note Provider Name and Address Organization Details Recorded Time 390202 Bactrim medicatio n Not available Not available Not available 10/10/2023 76141 9 RxNorm React ion: Lip swell ing; Not Available [facility] 4 01:08:18 253272 terbinafi ne medicatio n facial swelling Not available Not available 10/10/2023 40946 RxNorm React ion: Facia l swell ing; Not Available [facility] 4 01:08:20 Medications Name Sig Start [...] 0.35 mg tablet active Medicati on ID: 706327 B rand Name: norethin drone (contrac eptive) [...] a day 08/28 completed Medicati on ID: [id number] D uration Value: 14 Brand Name: Ciprodex [...] a day 08/28 completed Medicati on ID: [id number] D uration Value: 7 Brand Name: fluocino lone acetonid e oil Send Method: E-Prescr ibed Sub s Allowed: subs OK Medic ationGen ericName : fluocino lone acetonid e oil Not Available Not Available Not Available M- Plus 27 mg iron-1 mg tablet 08/28 completed Medicati on ID: [id number] B rand Name: M- Plus Sen d Method: E-Prescr ibed Sub s Allowed: subs OK Speci al Instruct ion: TAKE 1 TABLET BY MOUTH EVERY DAY Medi cationGe nericNam e: M-Raheem Plus Not Available Not Available Not Available Vitals Date Recorded Body height Body mass index (BMI) Body weight Provider Name and Address Organization Details Last Updated DateTime 08/28/2024 157.48 cm 32.7 kg/m2 19853.03 g MAR HARRY [facility] 08/28/2024 15:22:52 Social History None recorded. Functional Status None recorded. Mental Status None recorded. Family History Nothing Reported. Medical History No medical history recorded. Gynecological HistoryNo gynecological history recorded. Obstetrics History GPAL:G 0 P 0 0 0 0 Past Encounters Encounter ID Performer Location Encounter Start Date Encounter Closed Date Diagnosis/Indication Diagnosis SNOMED-CT Code Diagnosis ICD10 Code Diagnosis IMO Codes Diagnosis Note [id number] ARSEN GOODMAN PA-C [facility] [address] [address] 08/28/2024 15:13:18 08/28/2024 15:54:21 Abnormal auditory perception 07208786 H93.293 Acute sinusitis 71654476 J01.90 Health Concerns Section Related Observation LastModified by Organization Detai ls LastModified Time None Recorded Concern Status LastModified by Organization Details LastModified Time None Recorded Advance Directives Directive None Recorded Payers Insurance Date Sequence Insurance Name Policy Number Policy Irizarry Covered Member ID Irizarry Member ID Guarantor Name 08/23/2024 1 [facility] [id number] Cande Hernandez [id number] Cande Hernandez 08/28/2024 1 [facility] [id number] Cande Hernandez [id number] Cande Hernandez Notes Date Note Type Note [...] history of seasonal allergies. PAULETTE CHEEK MD [address] [place] [address], [phone], [facility] - [facility] 08/29/2024 10:41:39 OBGyn Episode No OBEpisode recorded.
== END 2025-04-14 10:38 | disposition home or self-care (01) ==
LOC: HO.HPS 10:11
PROVIDERS: PCP General Practice; Visit Provider Hospitalist
DX: J45.40 Moderate persistent asthma, uncomplicated (principal); J18.9 Pneumonia, unspecified organism; Z23 Encounter for immunization
CPT/HCPCS: 99214

== ENCOUNTER 2025-04-14 16:20 | Outpatient (REF) | payer BC, SELFPAY ==
--- NOTE | ~2025-04-14 | CT_ITS ---
EXAMINATION: CT CHEST WITHOUT CONTRAST CLINICAL INFORMATION: recurrent SOB/wheezing, recent multifocal PNA COMPARISON: None available. TECHNIQUE: Multidetector volumetric CT imaging of the chest was done. Axial MIP volume rendering provided. Sagittal and coronal reformatted images were obtained. This CT examination was performed using dose optimization techniques as appropriate, variously including the following: *Automated exposure control *Adjustment of mA and/or kV according to patient size (this includes techniques or standardized protocols for targeted exams where dose is matched to indication/reason for exam; i.e. extremities or head) *Use of iterative reconstruction technique FINDINGS: LUNGS: The lungs are clear with no evidence of inflammation or nodules. MEDIASTINUM: The mediastinum is normal. CORONARY ARTERY CALCIFICATION: None visualized on this study. PLEURA: There is no pleural effusion. No pleural mass or thickening. AXILLA: No lymphadenopathy. UPPER ABDOMEN: The gallbladder is surgically absent. There are clips in the gallbladder fossa. OSSEOUS STRUCTURES: Unremarkable. CT/CT chest wo IV con IMPRESSION: Interval resolution of airspace disease that was primarily in the left upper lobe on the prior examination consistent with resolving pneumonia. Fleischner guidelines were followed. Electronically signed by: David Downey MD 04/14/2025 05:38 PM EST
--- OUTSIDE RECORDS SUMMARY | 2025-04-15 07:07 | XMS_ITS | Encounter Summary ---
Author Organization [employer] [facility] Address [address] [facility] [address] [place] [address] Phone Care Team Providers Care Grove Superintendent Name Role Phone Soniya Colon MD Primary Care Provider + Encounter Details Date Type Department Care Team ([facility] st Contact Info) Description 03/27/2023 Transcribe Orders [facility] [address] [place] [address] Soniya Colon MD [address] [place] [address] Social History Tobacco Use Types Packs/Day Years [...] on filedocumented in this encounter Care Teams Grove Superintendent Relationship Specialty Start Date End Date Soniya Colon MD PCP - General Family Medicine 03/27/23 documented as of this encounter Additional Source Comments The information contained in this document represents components of the legal health record. It is not the complete legal health record.[facility]
--- OUTSIDE RECORDS SUMMARY | 2025-04-15 07:07 | XMS_ITS | Encounter Summary ---
Author Organization [employer] [facility] Address [facility] [address] [place] [address] Phone Care Team Providers Care Almond Roaster Name Role Phone Soniya Colon MD Primary Care Provider + Encounter Details Date Type Department Care Team (Late st Contact Info) Description 11/16/2023 Procedure Pass OR Admitting Dept - Virtual Department [address] [place] [address] Social History Tobacco Use Types Packs/Day Years [...] on filedocumented in this encounter Care Teams Almond Roaster Relationship Specialty Start Date End Date Soniya Colon MD PCP - General Family Medicine 03/27/23 documented as of this encounter Additional Source Comments The information contained in this document represents components of the legal health record. It is not the complete legal health record.[facility]
--- OUTSIDE RECORDS SUMMARY | 2025-04-15 07:08 | XMS_ITS | Clinical Summary ---
Author Organization [employer] [facility] ity Address [address] [place] [address] Care Team Providers Care Asparagus Cutter Name Role Phone Unavailable Primary Care [...]
--- OUTSIDE RECORDS SUMMARY | 2025-04-15 07:08 | XMS_ITS | Clinical Summary ---
Author Organization [employer] [facility] Address [address] [employer] [place] [address] [address] Phone Care Team Providers Care Slitting Machine Feeder Name Role Phone Soniya Colon MD Primary Care Provider + Allergies Active Allergy Reactions Criticality Noted Date Comments Sulfamethoxazole-Trimetho prim Hives 04/06/2023 Other Reaction(s): Terbinafine Terbinafine Swelling 04/06/2023 SWOLLEN LIPS [place] Anaphylaxis High 11/10/2023 Medications SUMAtriptan (IMITREX) 50 [...] AM EDT) HCV NON-REACTIV E NON-REACTI VE [facility] Blood 11/06/2023 10:3 4 AM EDT 11/06/2023 10:42 AM EDT Miguel Aguayo MD LAB BLOOD BKR ORDERABLES Leigh Ann l Result [address] [address] from Last 3 Months or Most Recently Relevant to Health Maintenance Insurance [facility] Member Subscriber Plan / Payer (Ef fective 2022-) Name:Hernandez, Cande Relation to Subscriber:Self Name:Hernandez Cande Payer ID:Not on file Type:PPO Address: [address] [facility] Member Subscriber Plan / Payer (Ef fective 2022-) Name:Hernandez, Cande Relation to Subscriber:Self Name:Cande Hernandez Payer ID:Not on file Type:PPO Address: [address] [facility] Advance Directives For more information, please contact: [phone] (9AM - 5PM [facility], Monday-Monday) Documents on File Type Date Recorded Patient Tie Loader Expl anation Healthcare Proxy 11/17/2023 4:31 PM Care Teams Slitting Machine Feeder Relationship Specialty Start Date End Date Soniya Colon MD PCP - General Family Medicine 03/27/23 Additional Source Comments The information contained in this document represents components of the legal health record. It is not the complete legal health record.[facility]
== END 2025-04-14 16:21 | disposition home or self-care (01) ==
LOC: HO.CT 16:20
PROVIDERS: PCP Family Medicine; Visit Provider Family Medicine
DX: Z23 Encounter for immunization (principal); R06.02 Shortness of breath; J45.40 Moderate persistent asthma, uncomplicated; J18.9 Pneumonia, unspecified organism
CPT/HCPCS: 71250; 90471; 90656

== ENCOUNTER → 2025-04-14 16:21 | Outpatient (BNV) | payer BC, SELFPAY | PROVIDERS: PCP Family Medicine; Visit Provider Radiology Diagnostic Radiology | DX: R06.02 Shortness of breath (principal) | CPT/HCPCS: 71250 ==

== ENCOUNTER 2025-04-28 11:34 | Outpatient (REF) | payer BC, SELFPAY ==
--- OUTSIDE RECORDS SUMMARY | 2025-04-28 17:40 | XMS_ITS | Encounter Summary ---
Author Organization [employer] Address [address] [facility] 7t [place] [address] Care Team Providers Care Ballpoint Pen Cartridge Tester Name Role Phone Soniya Colon MD Primary Care Provider [phone] Encounter Details Date Type Department Care Team (Late st Contact Info) Description 04/28/2025 5:40 PM EST Office Visit [facility] [address] [place] [address] Renetta Finney NP [address] [place] [address] Vaginal itching (Primary Dx); Dysuria Social History Tobacco Use Types Packs/Day Years [...] Sign Reading Time Taken Comments Blood Pressure 106/76 04/28/2025 5:15 PM EST Pulse 76 04/28/2025 5:15 PM EST Temperature 36.2 C (97.2 F) 04/28/2025 5:15 PM EST Respiratory Rate 12 04/28/2025 5:15 PM EST Oxygen Saturation 99% 04/28/2025 5:15 PM EST Inhaled Oxygen Concentration - - Weight 82.6 kg (182 lb) 04/28/2025 5:15 PM EST Height 157.5 cm (5' 2 ) 04/28/2025 5:15 PM EST Body Mass Index 33.29 04/28/2025 5:15 PM EST documented in this encounter Progress Notes * Renetta Finney NP - 04/28/2025 5:40 PM EST SUBJECTIVE: Cande Hernandez is a 29 y.o. female who presents with complaints of: vaginal irritation. Cande Hernandez, 29-year-old female - Itching and burning sensation in the genital area began after recent waxing, persisted through menstrual period, and continued after period ended on April 24, 2025 - Tried Vagisil and Monistat without relief - History of hospitalization for pneumonia in February 2025, received antibiotics for 10 days, then 5 days, off antibiotics for about a week, then restarted antibiotics for another 10 days along with prednisone at the beginning of March 2025 - Noted vaginal dryness prior to using Vagisil - Reports redness in the area, attributed to scratching - Uses ice or cold cloth for symptom relief - Denies vaginal discharge, burning with urination, urinary frequency, difficulty urinating, and vaginal bleeding outside of period - History of prediabetes, reports fluctuating blood sugar levels during recent illness and antibiotic use - Sexually active and interested in STI testing Review of Systems Constitutional: Negative. Negative for chills and fever. Respiratory: Negative for chest tightness and shortness of breath. Cardiovascular: Negative for chest pain. Gastrointestinal: Negative for abdominal pain, constipation, diarrhea and nausea. Genitourinary: Positive for vaginal pain. Negative for decreased urine volume, difficulty urinating, dysuria, frequency and vaginal discharge. Musculoskeletal: Negative for arthralgias, back pain, myalgias and neck pain. Skin: Negative. Negative for rash and wound. Neurological: Negative for weakness, light-headedness and headaches. Psychiatric/Behavioral: Negative for behavioral problems, confusion, decreased concentration and suicidal ideas. Current Medications[1] Allergies[2] OBJECTIVE: Visit Vitals BP 106/76 Pulse 76 Temp 97.2 ??F (36.2 ??C) (Temporal) Resp 12 Ht 5' 2 (1.575 m) Wt 182 lb (82.6 kg) SpO2 99% BMI 33.29 kg/m?? OB Status Having periods Smoking Status Never BSA 1.9 m?? Office Visit on 04/28/2025 Component Date Value Ref Range Status Color, UA 04/28/2025 Yellow Final Clarity, UA 04/28/2025 Clear Final Glucose, UA 04/28/2025 Negative Final Bilirubin, UA 04/28/2025 Negative Final Ketones, UA 04/28/2025 Negative Final Spec Grav, UA 04/28/2025 1.015 Final Blood, UA 04/28/2025 Negative Negative, None Detected Final pH, UA 04/28/2025 7.0 Final Protein, UA 04/28/2025 Negative Final Urobilinogen, UA 04/28/2025 0.2 Final Leukocytes, UA 04/28/2025 Trace Negative, Rare, Trace, 1+ (17), 2+ (35), 3+ (70), Trace (15) Final small Nitrite, UA 04/28/2025 Negative Negative, None Detected Final Appearance, UA 04/28/2025 clear Final QC Media Lot # 04/28/2025 [id number] Final Lot# Expiration Date 04/28/[phone] Final Physical Exam Vitals reviewed. Constitutional: General: She is not in acute distress. Appearance: Normal appearance. She is not ill-appearing. HENT: Head: Normocephalic and atraumatic. Right Ear: External ear normal. Left Ear: External ear normal. Nose: Nose normal. Eyes: General: No scleral icterus. Extraocular Movements: Extraocular movements intact. Cardiovascular: Rate and Rhythm: Normal rate and regular rhythm. Pulses: Normal pulses. Heart sounds: Normal heart sounds. Pulmonary: Effort: Pulmonary effort is normal. No respiratory distress. Breath sounds: Normal breath sounds. Abdominal: Tenderness: There is no right CVA tenderness or left CVA tenderness. Musculoskeletal: General: Normal range of motion. Cervical back: Normal range of motion. Neurological: General: No focal deficit present. Mental Status: She is alert and oriented to person, place, and time. Gait: Gait normal. Psychiatric: Mood and Affect: Mood normal. Behavior: Behavior normal. ASSESSMENT/PLAN: Vaginal itching: - Likely vulvovaginal candidiasis (yeast infection) given recent antibiotic use - Differential including bacterial vaginosis, trichomoniasis, chlamydia, and gonorrhea. - Sent vaginal swabs for testing for yeast, bacterial vaginosis, trichomoniasis, chlamydia, and gonorrhea. - Prescribed fluconazole, one dose to be taken today, with a second dose to be taken in 4 days if symptoms persist and if yeast infection is confirmed. Advised use of coconut oil or olive oil for dryness. - Recommended avoid scratching. - Will notify lab results via [employer] message. - Patient prefers topical treatment if BV positive Dysuria: - Dysuria not present. vaginal burning present without urination - UA with small amount of leukocyte - No antibiotics prescribed. Assessment & Plan Vaginal itching Orders: Chlamydia/N. Gonorrhoeae RNA, TMA, Vagina Bacterial Vaginosis, Yeast and Trich; Future fluconazole (Diflucan) 150 MG tablet; Take 1 tablet (150 mg) by mouth every 4th (fourth) day for 2 doses. Dysuria Orders: POCT urinalysis dipstick manually resulted (CPT 09682) Follow-up with PCP as scheduled for routine health or sooner as needed This note was drafted using Ambient (AI) technology. The patient/patient's guardian has been informed and has consented to the use of this technology: Yes [1] Current Outpatient Medications: acetaminophen (Tylenol) 500 MG [...] not swallow., Disp: 1 each, Rfl: 11 fluconazole (Diflucan) 150 MG tablet, Take 1 tablet (150 mg) by mouth every 4th (fourth) day for 2 doses., Disp: 2 tablet, Rfl: 0 glucose blood (OneTouch Ultra) test strip, Use one strip to test blood sugar once daily, Disp: 100 each, Rfl: 3 Multiple Vitamin (multivitamin) tablet, Take 1 tablet by mouth Once per day., Disp: , Rfl: OneTouch UltraSoft 2 Lancets misc, 1 Lancet Once per day., Disp: 100 each, Rfl: 3 Spacer/Aero-Holding Chambers device, 1 each Once per day., Disp: 1 each, Rfl: 0 SUMAtriptan (Imitrex) 50 MG tablet, TAKE 1 TABLET BY MOUTH EVERY 2 HOURS NEEDED FOR MIGRAINE HEADACHE DO NOT EXCEED 2 DOSES/24 HRS, Disp: , Rfl: [2] Allergies Allergen Reactions Black [place] Flavoring Agent (Non-Screening) Anaphylaxis Sulfamethoxazole Anaphylaxis Trimethoprim Anaphylaxis Sulfamethoxazole-Trimethoprim Hives Other reaction(s): Terbinafine Other Reaction(s): Terbinafine Terbinafine documented in this encounter Plan of Treatment Upcoming Encounters Date Type Department Care Team (Late st Contact Info) Description 05/14/2025 4:00 PM EST Office Visit [facility] [address] [place] [address] Soniya Colon MD [address] [place] [address] 07/02/2025 3:30 PM EST Office Visit [facility] [address] [place] [address] [place], Katelyn, OD [address] [place] [address] Scheduled Orders Name Type Priority Associated Diagnoses Orde r Schedule Bacterial Vaginosis, Yeast and Trich Microbiology Routine Vaginal itching Expected: 04/28/2025 (Approximate), Expires: 04/28/2026 documented as of this encounter Procedures Procedure Name Priority Date/Time Associated Diagnosis Comments CHLAMYDIA/N. GONORRHOEAE RNA, TMA, UROGENITAL Routine 04/29/2025 12:00 AM EST Vaginal itching POCT URINALYSIS DIPSTICK Routine 04/28/2025 5:58 PM EST Dysuria documented in this encounter Results * Chlamydia/N. Gonorrhoeae RNA, TMA, Vagina (04/29/2025 12:00 AM EST) CT PCR NOT DETECTED Not Detect. [facility] Comment:A not detected test result [...] psychologicalconsequences. NG PCR NOT DETECTED Not Detect. [facility] Comment:A not detected test result [...] or psychologicalconsequences. Swab Vaginal structure / Unknown 04/29/2025 04/29/2025 Renetta Finney NP LAB MICROBIOLOGY - GENERAL KARLOS SUAREZ Final Result [facility] [address] [place] [phone] * POCT urinalysis dipstick manually resulted (CPT 94097) (04/28/2025 5:58 PM EST) Color, UA Yellow Clarity, UA Clear Glucose, UA Negative Bilirubin, UA Negative Ketones, UA Negative Spec Grav, UA 1.015 Blood, UA Negative Negative, None Detected pH, UA 7.0 Protein, UA Negative Urobilinogen, UA 0.2 Leukocytes, UA Trace Negative, Rare, Trace, 1+ (17), 2+ (35), 3+ (70), Trace (15) Comment:small Nitrite, UA Negative Negative, None Detected Appearance, UA clear QC Media Lot # [id number] Lot# Expiration Date ,880 Urine (Urine, Random) 04/28/2025 5:58 PM EST Renetta Appram WALLET ASSEMBLER POINT OF CARE TEST ENTER/EDIT O RDERABLES Final Result documented in this encounter Visit Diagnoses Diagnosis Vaginal itching- Primary Pruritus of genital organs Dysuria documented in this encounter Additional Health Concerns Assessment Noted Time PHQ-9 Depression Total Score: 10 03/24/ 025 3:23 PM EDT documented as of this encounter Care Teams Ballpoint Pen Cartridge Tester Relationship Specialty Start Date End Date Soniya Colon MD [address] [place] [address] PCP - General Family Medicine 01/19/21 documented as of this encounter
[2025-04-29 13:11] LABS: Bacterial Vaginosis PCR POSITIVE (Negative); Candida Group PCR NOT DETECTED (Not Detect); Candida glab krusei PCR NOT DETECTED (Not Detect); Trichomonas vaginalis PCR NOT DETECTED (Not Detect)
[2025-04-29 13:42] LABS: CT PCR NOT DETECTED (Not Detect.); NG PCR NOT DETECTED (Not Detect.)
--- OUTSIDE RECORDS SUMMARY | 2025-04-29 13:46 | XMS_ITS | Encounter Summary ---
Author Organization [employer] Address [address] [place] [address] 7t [place] [address] Care Team Providers Care Medical Billing And Coding Instructor Name Role Phone Soniya Colon MD Primary Care Provider [phone] Encounter Details Date Type Department Care Team ([facility] st Contact Info) Description 04/29/2025 Orders Only [facility] [address] [place] [address] Renetta Finney NP [address] [place] [address] Social History Tobacco Use Types Packs/Day Years [...] Description 05/14/2025 4:00 PM EST Office Visit [facility] [address] [place] [address] Soniya Colon MD [address] [place] [address] 07/02/2025 3:30 PM EST Office Visit [facility] [address] [place] [address] Katelyn Borjas, LISSETH [address] [place] [address] documented as of this encounter Procedures Procedure Name Priority Date/Time Associated Diagnosis Comments BACTERIAL VAGINOSIS PANEL Routine 04/29/2025 12:00 AM EST documented in this encounter Results * (ABNORMAL) Bacterial Vaginosis (04/29/2025 12:00 AM EST) TRICHOMONAS VAGINALIS DETECTION BY PCR NOT DETECTED Not Detect [facility] BACTERIAL VAGINOSIS DETECTION BY PCR POSITIVE(A) Negative [facility] Comment:The BV organism targ ets [...] DETECTION BY PCR NOT DETECTED Not Detect [facility] Jessica glab krusei PCR NOT DETECTED Not Detect [facility] 04/29/2025 04/29/2025 Renetta Raygoza GOLD AND SILVER ASSAYER LAB MICROBIOLOGY - [facility] KARLOS SUAREZ Final Result [facility] [address] [place] [phone] documented in this encounter Visit Diagnoses Not on filedocumented in this encounter Additional Health Concerns Assessment Noted Time PHQ-9 Depression Total Score: 10 03/24/ 025 3:23 PM EDT documented as of this encounter Care Teams Medical Billing And Coding Instructor Relationship Specialty Start Date End Date Soniya Colon MD [address] [place] [address] PCP - General Family Medicine 01/19/21 documented as of this encounter
--- OUTSIDE RECORDS SUMMARY | 2025-04-29 13:46 | XMS_ITS | Encounter Summary ---
Author Organization [employer] Address [address] [place] [address] 7 [place] [address] Care Team Providers Care Accountant Auditor Name Role Phone Soniya Colon MD Primary Care Provider [phone] Encounter Details Date Type Department Care Team (Latest Contact Info) Description 04/28/2025 Travel Social History Tobacco Use Types Packs/Day [...] the past 12 months, has t he [employer], [employer], oil or water [employer] threatened to shut off services in your [...] Description 05/14/2025 4:00 PM EST Office Visit [facility] [address] [place] [address] Soniya Colon MD [address] [place] [address] 07/02/2025 3:30 PM EST Office Visit [facility] [address] [place] [address] Indio, Katelyn, OD [address] [place] [address] documented as of this encounter Visit Diagnoses Not on filedocumented in this encounter Additional Health Concerns Assessment Noted Time PHQ-9 Depression Total Score: 10 025 3:23 PM EDT documented as of this encounter Care Teams Accountant Auditor Relationship Specialty Start Date End Date Soniya Colon MD [address] [place] [address] PCP - General Family Medicine 01/19/21 documented as of this encounter
--- OUTSIDE RECORDS SUMMARY | 2025-04-29 13:46 | XMS_ITS | Encounter Summary ---
Author Organization [employer] Address [address] [place] [address] 7 [place] [address] Care Team Providers Care Auto Haulaway Driver Name Role Phone Soniya Colon MD Primary Care Provider [phone] Encounter Details Date Type Department Care Team ([facility] st Contact Info) Description 04/02/2025 Orders Only [facility] [address] [place] [address] Soniya Colon MD [address] [place] [address] Social History Tobacco Use Types Packs/Day Years [...] Office Visit [facility] [address] [place] [address] Soniya Colon MD [address] [place] [address] 07/02/2025 3:30 PM EST Office Visit [facility] OPTOMETRY [address] [place] [address] Katelyn Borjas, LISSETH [address] [place] [address] documented as of this encounter Visit Diagnoses Not on filedocumented in this encounter Additional Health Concerns Assessment Noted Time PHQ-9 Depression Total Score: 10 025 3:23 PM EDT documented as of this encounter Care Teams Auto Haulaway Driver Relationship Specialty Start Date End Date Soniya Colon MD [address] [place] [address] PCP - General Family Medicine 01/19/21 documented as of this encounter
--- OUTSIDE RECORDS SUMMARY | 2025-04-29 13:47 | XMS_ITS | Encounter Summary ---
Author Organization [employer] Address [address] [place] [address] 7 [place] [address] Care Team Providers Care Home Care Coordinator Name Role Phone Soniya Colon MD Primary Care Provider [phone] Encounter Details Date Type Department Care Team (Late st Contact Info) Description 01/10/2023 Orders Only [facility] [address] [place] [address] [phone] Soniya Colon MD [address] [place] [address] [phone] Migraine without aura and with status migrainosus, [...] Description 05/14/2025 4:00 PM EST Office Visit [facility] [address] [place], [place] [phone] Soniya Colon MD [address] [place], [place] [phone] 07/02/2025 3:30 PM EST Office Visit [facility] OPTOMETRY [address] [place] [address] Katelyn Borjas, OD [address] [place] [address] documented as of this encounter Visit Diagnoses Diagnosis Migraine without aura and with status migrainosus, not intractable- Primary documented in this encounter Care Teams Home Care Coordinator Relationship Specialty Start Date End Date Soniya Colon MD [address] [place] [address] PCP - General Family Medicine 01/19/21 documented as of this encounter
--- OUTSIDE RECORDS SUMMARY | 2025-04-29 13:47 | XMS_ITS | Encounter Summary ---
Author Organization [employer] [facility] Address [facility] [address] [place] [phone] Phone Care Team Providers Care Animal Surgeon Name Role Phone Soniya Colon MD Primary Care Provider + Encounter Details Date Type Department Care Team (Late st Contact Info) Description 11/16/2023 Procedure Pass OR Admitting Dept - Virtual Department [address] [place] [address] Social History Tobacco Use Types Packs/Day Years [...] on filedocumented in this encounter Care Teams Animal Surgeon Relationship Specialty Start Date End Date Soniya Colon MD PCP - General Family Medicine 03/27/23 documented as of this encounter Additional Source Comments The information contained in this document represents components of the legal health record. It is not the complete legal health record.[facility]
--- OUTSIDE RECORDS SUMMARY | 2025-04-29 13:47 | XMS_ITS | Encounter Summary ---
Author Organization [employer] Address [address] [place] [address] 7t [place] [address] Care Team Providers Care Control And Recovery Combat Rescue Name Role Phone Soniya Colon MD Primary Care Provider [phone] Encounter Details Date Type Department Care Team ([facility] st Contact Info) Description 01/22/2025 Orders Only [facility]INE [address] [place] [address] Soniya Colon MD [address] [place] [address] Weight gain (Primary Dx) Social History Tobacco [...] the past 12 months, has t he [employer], gas, oil or water company threatened to [...] [facility] [address] [place] [address] Soniya Colon MD [address] [place] [address] 07/02/2025 3:30 PM EST Office Visit [facility] OPTOMETRY [address] [place] [address] Katelyn Borjas, LISSETH [address] [place] [address] Scheduled Orders Name Type Priority Associated Diagnoses [...] documented as of this encounter Care Teams Control And Recovery Combat Rescue Relationship Specialty Start Date End Date Soniya Colon MD [address] [place] [address] PCP - General Family Medicine 01/19/21 documented as of this encounter
--- OUTSIDE RECORDS SUMMARY | 2025-04-29 13:47 | XMS_ITS | Encounter Summary ---
Author Organization [employer] [facility] Address [address] [facility] [address] [place] [address] Phone Care Team Providers Care Race And Sports Book Writer Name Role Phone Soniya Colon MD Primary Care Provider + Encounter Details Date Type Department Care Team ([facility] st Contact Info) Description 03/27/2023 Transcribe Orders [facility] [address] [place] [address] Soniya Colon MD [address] [place] [address] Social History Tobacco Use Types Packs/Day Years [...] on filedocumented in this encounter Care Teams Race And Sports Book Writer Relationship Specialty Start Date End Date Soniya Colon MD PCP - General Family Medicine 03/27/23 documented as of this encounter Additional Source Comments The information contained in this document represents components of the legal health record. It is not the complete legal health record.[facility]
--- OUTSIDE RECORDS SUMMARY | 2025-04-29 13:47 | XMS_ITS | Encounter Summary ---
Author Organization [employer] Address [address] [place] [address] 7 [place] [address] Care Team Providers Care Chief Guard Name Role Phone Soniya Colon MD Primary Care Provider [phone] Reason for Visit * Reason Onset Date Comments Hospital Follow-up 03/06/2025 Encounter Details Date Type Department Care Team ([facility] st Contact Info) Description 03/06/2025 Telephone [facility] [address] [place], [place] [phone] Soniya Colon MD [address] [place], [place] [phone] Hospital Follow-up Social History Tobacco Use Types [...] from pt requesting a HDF appt. Hospital: [facility] Date of admission: 02/26 Discharge date: 03/05 Diagnosed: pneumonia both lungs , glucose all over the place *Send message to [facility] Coordinators Contact pt at [phone] documented in this encounter Plan of Treatment Upcoming Encounters Date Type Department Care Team ([facility] st Contact Info) Description 05/14/2025 4:00 PM EST Office Visit [facility] [address] [place] [address] Soniya Colon MD [address] [place] [address] 07/02/2025 3:30 PM EST Office Visit [facility] OPTOMETRY [address] [place], [place] [phone] [place], Katelyn, OD [address] [place] [address] documented as of this encounter Visit Diagnoses Not on filedocumented in this encounter Additional Health Concerns Assessment Noted Time PHQ-9 Depression Total Score: 4 03/25/20 24 2:12 PM EDT documented as of this encounter Care Teams Chief Guard Relationship Specialty Start Date End Date Soniya Colon MD [address] [place], [place] [phone] PCP - General Family Medicine 01/19/21 documented as of this encounter
--- OUTSIDE RECORDS SUMMARY | 2025-04-29 13:47 | XMS_ITS | Encounter Summary ---
Author Organization [employer] Address [address] [place] [address] [place] [address] Care Team Providers Care Hematology Technician Name Role Phone Soniya Colon MD Primary Care Provider [phone] Reason for Referral * Consultation (Routine) - Closed Specialty Diagnoses / Procedures Referred By Izaiah mcleod Referred To Contact Urology Diagnoses Kidney stone Soniya Colon MD [address] [place] [address] Phone: tel: fax: [facility] [address] [place] [address] [place] [address] Phone: tel: fax: Referral ID Status Reason Start Date Expiration Date V isits Requested Visits Authorized [id number] Closed Specialty Services Required 09/09/2024 09/09/2025 1 1 Encounter Details Date Type Department Care Team (Late st Contact Info) Description 09/09/2024 Orders Only [facility] [address] [place] [address] Soniya Colon MD [address] [place], [place] [phone] Kidney stone (Primary Dx) Social History Tobacco [...] 4:00 PM EST Office Visit [facility] [address] [place] [address] Soniya Colon MD [address] [place] [address] 07/02/2025 3:30 PM EST Office Visit [facility] OPTOMETRY [address] [place] [address] Katelyn Borjas, LISSETH [address] [place] [address] documented as of this encounter Procedures Procedure [...] documented as of this encounter Care Teams Hematology Technician Relationship Specialty Start Date End Date Soniya Colon MD [address] [place] [address] PCP - General Family Medicine 01/19/21 documented as of this encounter
--- OUTSIDE RECORDS SUMMARY | 2025-04-29 13:47 | XMS_ITS | Clinical Summary ---
Author Organization [employer] Address [address] [place] [address] 7 [place] [address] Care Team Providers Care Rn Radiation Name Role Phone Soniya Colon MD Primary Care Provider [phone] Allergies Active Allergy Reactions Criticality Noted Date Comments Black [place] Flavoring Agent (Non-Screening) Anaphylaxis High 11/10/2023 Sulfamethoxazole [...] and 2 tablets before bedtime. 2 Active SUMAtriptan (Imitrex) 50 MG tablet TAKE 1 TABLET BY MOUTH EVERY 2 HOURS NEEDED FOR MIGRAINE HEADACHE DO NOT EXCEED 2 DOSES/24 HRS 3 Active albuterol 108 (90 Base) MCG/ACT inhaler Inhale 2 puffs every 4 (four) hours. 18 g 1 5 Active glucose blood (OneTouch Ultra) test stripIndication s:Prediabetes Use one strip to test blood sugar once daily 100 each 3 5 03/06/20 26 Active OneTouch UltraSoft 2 Lancets miscIndications :Prediabetes 1 Lancet Once per day. 100 each 3 5 Active Alcohol Swabs 70 % padsIndications :Prediabetes Use 1 alcohol swab to test blood sugar once daily 100 each 3 5 Active Blood Glucose Monitoring Suppl (ONE TOUCH ULTRA 2) w/Device kitIndications: Prediabetes Use to test blood sugar once daily 1 kit Active Multiple Vitamin (multivitamin) tablet Take 1 tablet by mouth Once per day. Active budesonide-form oterol (Symbicort) 160-4.5 MCG/ACT inhaler Inhale 2 puffs in the morning and at bedtime. Rinse mouth with water after use to reduce aftertaste and incidence of candidiasis. Do not swallow. 1 each 5 03/24/20 26 Active Spacer/Aero-Hol ding Chambers device 1 each Once per day. 1 each 5 Active fluconazole (Diflucan) 150 MG tabletIndicatio ns:Vaginal itching Take 1 tablet (150 mg) by mouth every 4th (fourth) day for 2 doses. 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, we reviewed [...] Encounters Date Type Department Care Team Description 04/29/2025 Orders Only [facility] [address] [place] [phone] Renetta Finney NP 04/28/2025 5:40 PM EST Office Visit [facility] [place] [address] Renetta Finney NP Vaginal itching (Primary Dx); Dysuria 04/28/2025 Travel 04/21/2025 Telephone [facility] [address] [place] [phone] Soniya Colon MD Results 04/08/[address] [address] Soniya Colon MD Results 04/02/2025 Orders Only [address] [address] Soniya Colon MD 03/31/2025 12:00 PM EST Office Visit [address] [address] Meri Haque DO SOB (shortness of breath) (Primary Dx) 03/31/2025 Orders Only GENERIC EXTERNAL DATA DEPARTMENT Provider, Generic External Data 03/31/[address] [address] Soniya Colon MD Care Coordination 03/31/2025 Travel 03/31/[address] [address] Soniya Colon MD Nurse Triage 03/24/2025 2:45 PM EDT Office Visit [address] [address] Soniya Colon MD History of mycoplasma pneumonia (Primary Dx); Prediabetes 03/24/2025 Travel 03/21/[address] [address] Soniya Colon MD chart prep 03/07/[address] [address] Soniya Colon MD Medication Question 03/06/2025 Patient Outreach [facility] [address] [place], [place] [phone] Soniya Colon MD Transition Of Care (Tcm) (HDF scheduled. ) 03/06/[address] [address] Soniya Colon MD Hospital Follow-up 03/05/2025 Orders Only [address] [address] Soniya Colon MD Pneumonia of left lung due to Mycoplasma pneumoniae, unspecified part of lung (Primary Dx) 02/28/[address] [address] Soniya Colon MD 02/26/2025 10:20 AM EDT Office Visit [facility] [address] [address] Alissa May MD Moderate persistent asthma with exacerbation (Primary Dx); Cough, unspecified type; Fever, unspecified fever cause; Respiratory crackles 1/2 way up posterior chest wall on left side 02/26/2025 Orders Only GENERIC EXTERNAL DATA DEPARTMENT Provider, Generic External Data 02/26/2025 Telephone [facility] [address] [address] Soniya Colon MD 02/26/2025 Travel from Last 3 Months Immunizations Immunization [...] Mass Index 33.29 04/28/2025 5:15 PM EST Plan of Treatment Upcoming Encounters Date Type Department Care Team (Late st Contact Info) Description 05/14/2025 4:00 PM EST Office Visit [facility] [address] [place] [address] Soniya Colon MD [address] [place] [address] 07/02/2025 3:30 PM EST Office Visit [facility] [address] [place] [address] Katelyn Borjas, OD [address] [place] [address] Health Maintenance Due Date Last Done Comments Dental Oral Exam 1996 Dental Prophylaxis 1996 Dental X-Ray: Bitewings 1996 Dental X-Ray: Full Mouth 1996 HIV Screening 1996 Hepatitis C Screening 2014 Pneumococcal Vaccine: Pediatrics (0 to 5 Years) and At-Risk Patients (6 to 49) Years (1 of 2 - PCV) 09/02/2015 COVID-19 Vaccine ( season) 2025 02/11/2022, 07/16/2021, 07/16/2021, Additional history exists Alcohol/Substance Use Screening 05/17/2025 05/17/2024 Depression Monitoring 09/22/2025 03/24/2025, 025 Disability Screening 12/03/2025 12/03/2024 SDOH Screening 12/03/2025 12/03/2024 Family Planning (PISQ) 01/14/2026 01/14/2025 Diabetes: Hemoglobin A1C 03/24/2026 025, 09/30/2022, 11/17/2021 Tobacco Screening 04/28/2026 04/28/2025 Pap Smear 09/18/2027 09/17/2024, 02/10/2021 DTaP/Tdap/Td Vaccines [...] on patient's age to complete this topic Influenza Vaccine Completed 04/14/2025, , 02/11/2022, Additional history exists Meningococcal B Vaccine Aged Out No l [...] VAGINOSIS PANEL Routine 04/29/2025 12:00 AM EST CHLAMYDIA/N. GONORRHOEAE RNA, TMA, UROGENITAL Routine 04/29/2025 12:00 AM EST Vaginal itching POCT URINALYSIS DIPSTICK Routine 04/28/2025 5:[address] CHEST WO CONTRAST Urgent 04/14/2025 4:26 PM EST SOB (shortness of breath) D DIMER HIGH SENSITIVITY Routine 03/31/2025 5:10 PM EST COVID-19 ID NOW (JOHNSON) Routine 03/31/2025 3:49 PM EST STREP A NUCLEIC ACID Routine 03/31/2025 3:49 PM EST INFLUENZA A B2 ID NOW (JOHNSON) Routine 03/31/2025 3:49 PM EST XR CHEST 2 VIEWS Routine 03/31/2025 2:05 PM EST POCT GLYCATED HEMOGLOBIN, TOTAL Routine 03/24/2025 3:56 PM EDT Prediabetes XR CHEST 2 VIEWS Routine 03/24/2025 3:5 4 PM EDT History of mycoplasma pneumonia POCT [...] Cough, unspecified type Fever, unspecified fever cause PAP SMEAR Routine 09/17/2024 12:00 AM EDT Screening for cervical cancer from Last 3 Months or Most Recently Relevant to Health Maintenance Results * (ABNORMAL) Bacterial Vaginosis (04/29/2025 12:00 AM EST) TRICHOMONAS VAGINALIS DETECTION BY PCR NOT DETECTED Not Detect [facility] BACTERIAL VAGINOSIS DETECTION BY PCR POSITIVE(A) Negative [facility] Comment:The BV organism targ ets of [...] DETECTION BY PCR NOT DETECTED Not Detect [facility] Jessica glab krusei PCR NOT DETECTED Not Detect [facility] 04/29/2025 04/29/20[facility] - [facility] KARLOS SUAREZ Final Result [facility] [address] [place] [phone] * Chlamydia/N. Gonorrhoeae RNA, TMA, Vagina (04/29/2025 12:00 AM EST) CT PCR NOT DETECTED Not Detect. [facility] Comment:A not detected test result does [...] psychologicalconsequences. NG PCR NOT DETECTED Not Detect. [facility] Comment:A not detected test result does [...] 04/29/2025 Renetta Finney NP LAB [facility]OLOGY - [facility] Final Result [facility] [address] [place] [phone] * POCT urinalysis dipstick manually resulted (CPT 97709) (04/28/2025 5:58 PM EST) Color, UA Yellow [...] Media Lot # [id number] Lot# Expiration Date Urine (Urine, Random) 04/28/2025 5:58 PM EST us Renetta Finney NP POINT OF CARE TEST ENTER/EDIT O RDERABLES Final Result * CT Chest w/o Contrast (04/14/2025 4:26 PM EST) Anatomical Region Laterality Modality Body, Chest Computed Tomogra phy 04/14/2025 4:26 PM EST Narrative 04/14/2025 5:41 PM EST [address] [address] [address] Scan Report Signed Patient: Cande Hernandez MR#: [id number] : 1995 Acct:[id number] Age/Sex: 29 / F ADM Date: 04/14/25 Loc: HO.CT Attending Dr: Meri Haque DO Ordering Physician: Meri Haque DO Date of Service: 04/14/25 Procedure(s): CT chest wo IV con Accession Number(s): [id number] cc: Meri Haque DO Report Number: [id number]: Total DLP = 141.00 mGy-cm Reason for Exam: recurrent SOB/wheezing, recent multifocal PNA EXAMINATION: CT CHEST WITHOUT CONTRAST CLINICAL INFORMATION: recurrent SOB/wheezing, recent multifocal PNA COMPARISON: None available. TECHNIQUE: Multidetector volumetric CT imaging of the chest was done. Axial MIP volume rendering provided. Sagittal and coronal reformatted images were obtained. This CT examination was performed using dose optimization techniques as appropriate, variously including the following: *Automated exposure control *Adjustment of mA and/or kV according to patient size (this includes techniques or standardized protocols for targeted exams where dose is matched to indication/reason for exam; i.e. extremities or head) *Use of iterative reconstruction technique FINDINGS: LUNGS: The lungs are clear with no evidence of inflammation or nodules. MEDIASTINUM: The mediastinum is normal. CORONARY ARTERY CALCIFICATION: None visualized on this study. PLEURA: There is no pleural effusion. No pleural mass or thickening. AXILLA: No lymphadenopathy. UPPER ABDOMEN: The gallbladder is surgically absent. There are clips in the gallbladder fossa. OSSEOUS STRUCTURES: Unremarkable. CT/CT chest wo IV con IMPRESSION: Interval resolution of airspace disease that was primarily in the left upper lobe on the prior examination consistent with resolving pneumonia. Fleischner guidelines were followed. Electronically signed by: David Downey MD 04/14/2025 05:38 PM EST RP Dictated By: David Downey MD Signed By: <Electronically signed by David Downey MD in OV> 04/14/25 1738 DD/ 1626 TD/TT: 04/14/25 1638 Duplex Trimmer: Procedure Note Donotuseinterpreter, Image - 04/14/[address] [address] [address] Scan Report Signed Patient: Cande Hernandez KMR#: [id number] : 1995Acct:[id number] Age/Sex: Date: 04/14/25 Loc: HO.CT Attending Dr: Meri Haque DO Ordering Physician: Meri Haque DO Date of Service: 04/14/25 Procedure(s): CT chest wo IV con Accession Number(s): [id number] cc: Meri Haque DO Report Number: [id number]: Total DLP = 141.00 mGy-cm Reason for Exam: recurrent SOB/wheezing, recent multifocal PNA EXAMINATION: CT CHEST WITHOUT CONTRAST CLINICAL INFORMATION: recurrent SOB/wheezing, recent multifocal PNA COMPARISON: None available. TECHNIQUE: Multidetector volumetric CT imaging of the chest was done. Axial MIP volume rendering provided. Sagittal and coronal reformatted images were obtained. This CT examination was performed using dose optimization techniques as appropriate, variously including the following: *Automated exposure control *Adjustment of mA and/or kV according to patient size (this includes techniques or standardized protocols for targeted exams where dose is matched to indication/reason for exam; i.e. extremities or head) *Use of iterative reconstruction technique FINDINGS: LUNGS: The lungs are clear with no evidence of inflammation or nodules. MEDIASTINUM: The mediastinum is normal. CORONARY ARTERY CALCIFICATION: None visualized on this study. PLEURA: There is no pleural effusion. No pleural mass or thickening. AXILLA: No lymphadenopathy. UPPER ABDOMEN: The gallbladder is surgically absent. There are clips in the gallbladder fossa. OSSEOUS STRUCTURES: Unremarkable. CT/CT chest wo IV con IMPRESSION: Interval resolution of airspace disease that was primarily in the left upper lobe on the prior examination consistent with resolving pneumonia. Fleischner guidelines were followed. Electronically signed by: David Downey MD 04/14/2025 05:38 PM EST Dictated By: David Downey MD Signed By: <Electronically signed by David Downey MD in OV> 04/14/25 1738 DD/ 1626 TD/TT: 04/14/25 1638 Duplex Trimmer: us Meri Garland DO IMG CT PROCEDURES Final Resu lt * D Dimer High Sensitivity (03/31/2025 5:10 PM EST) Only the most recent of2 resultswithin the time period is included. Pathologist [facility] D Dimer High Sensitivity <150 NG/ML [facility] Comment:D-DIMER HS REFERENCE RANGENote: Our assay [...] Provider LAB BLOOD ORDERAB LES Final Result [facility] [address] [place] [phone] * Influenza A B2 ID NOW (Johnson) (03/31/2025 3:49 PM EST) IDNOW SERIAL# [id number] [facility] Influenza A Negative Negative [facility] Influenza B2 Negative Negative [facility] Influenza A B2 Note See Note [facility] Comment:The Johnson ID NOW In fluenza [...] GENERAL ORDERABLES Final Result Performing Organization Address [facility] Co de Phone Number [facility] [address] [place] [address] [phone] * Strep A Nucleic Acid (03/31/2025 3:49 PM EST) IDNOW SERIAL# [id number] [facility] Strep A Nucleic Acid Negative Negative [facility] Comment:All test results mus t be correlated with clinical findings.This test has not been evaluated for monitoring treatment ofinfection.Additional follow-up testing using the culture method isrequired if the result is negative and clinical symptomspersist, or in the event of an acute rheumatic feveroutbreak. 03/31/2025 3:49 PM EST 03/31/2025 3:56 PM EST [employer] External Data Provider LAB MICROBIOLOGY - GENERAL ORDERABLES Final Result Performing Organization Address [facility] de Phone Number [facility] [address] [place] [address] [phone] * COVID-19 ID NOW (JOHNSON) (03/31/2025 3:49 PM EST) IDNOW SERIAL# [id number] [facility] COVID-19 TEST Negative Negative [facility] COVID-19 NOTE See Note [facility] Comment: Results are for the identification of SARS-CoV2 RNA. TheSARS-CoV2 RNA is generally detectable in respiratory samplesduring the acute phase of infection. Positive results areindicative of the presence of SARS-CoV-2 RNA; clinicalcorrelation with patient history and other diagnosticinformation is necessary to determine patient infectionstatus. Positive results do not rule out bacterial infectionor co- infection with other viruses.Testing facilities within the [place] and [facility] are required to report all positive [...] use by authorized laboratories.Testing performed on the DECA ID NOW utilizing NAAT. 03/31/2025 3:49 PM EST 03/31/2025 3:56 PM EST us Generic External Data Provider LAB MOLECULAR MATEO GNOSTICS ORDERABLES Final Result [facility] [address] [place] [address] [phone] * XR Chest 2 Views (03/31/2025 2:05 PM EST) Only the most recent of4 resultswithin the time period is included. Anatomical Region Laterality Modality Chest Radiographic [place] 03/31/2025 2:05 PM EST Narrative 03/31/2025 2:19 PM EST [address] [address] XRay Report Signed Patient: Cande Hernandez MR#: [id number] : 1995 Acct:[id number] Age/Sex: 29 / F ADM Date: 03/31/25 Loc: .ED Attending Dr: Ordering Physician: Linda Gilliam Date of Service: 03/31/25 Procedure(s): XR chest 2V Accession Number(s): [id number] cc: Linda Gilliam; Soniya Colon Reason for [...] 03/31/25 1416 DD/ 1405 TD/TT: 03/31/25 1410 Duplex Trimmer: Procedure Note Donotuseinterpreter, Image - 03/31/2025 [place] [address] XRay Report Signed Patient: Cande Hernandez KMR#: [id number] : 1995Acct:[id number] Age/Sex: 29 FADM Date: 03/31/25 [facility]: Ordering Physician: Linda Gilliam Date of Service: 03/31/25 Procedure(s): XR chest 2V Accession Number(s): [id number] cc: Linda Gilliam; Soniya Colon Reason for [...] 03/31/25 1416 DD/ 1405 TD/TT: 03/31/25 1410 Duplex Trimmer: [facility] External Provider IMG XR PROCEDURES Edited Result - Final * (ABNORMAL) POCT Hgb A1c (03/24/2025 3:56 PM EDT) Hemoglobin A1C 6.5(A) 4.0 - 5.7 % QC Media Lot # [id number] Lot# Expiration Date ,027 Blood 03/24/2025 3:56 PM EDT Soniya Colon MD POINT OF CARE TEST ENTER/EDIT ORDERABLES Final Result * POCT Glucose (03/24/2025 3:22 PM EDT) Glucose Blood, POC 115 60 - 200 mg/dL QC Media Lot # [id number] Lot# Expiration Date 3,026 Blood Capillary blood specimen / Unknown 03/24/2025 3:22 PM EDT Soniya Colon MD POINT OF CARE TEST ENTER/EDIT ORDERABLES Final Result * XR Chest 1 View (02/28/2025 3:22 AM EDT) Anatomical Region Laterality Modality Chest Radiographic [place] 02/28/2025 3:22 AM EDT Narrative 02/28/2025 3:25 AM EDT [address] [address] XRay Report Signed Patient: Cande Hernandez MR#: [id number] : 1995 Acct:[id number] Age/Sex: 29 / F ADM Date: 02/26/25 Loc: [facility] 446-[address]: Jeanine Barker MD Ordering Physician: Jerel Hernadez MD Date of Service: 02/28/25 Procedure(s): XR chest 1V Accession Number(s): [id number] cc: Jerel Hernadez MD; Soniya Colon Reason [...] in OV> 02/28/25323 DD/ 1 TD/TT: 02/28/25321 Duplex Trimmer: Procedure Note Donotuseinterpreter, Image - 02/28/2025 [place] [address] XRay Report Signed Patient: Cande Hernandez KMR#: [id number] : 1995Acct:[id number] Age/Sex: 29 FADM Date: 02/26/25 Loc: [facility] 446-[address]: Jeanine Barker MD Ordering Physician: Jerel Hernadez MD Date of Service: 02/28/25 Procedure(s): XR chest 1V Accession Number(s): [id number] cc: Jerel Hernadez MD; Soniya Colon Reason [...] in OV> 02/28/25323 DD/ 1 TD/TT: 02/28/25321 Duplex Trimmer: [facility] External Provider IMG XR PROCEDURES Edited Result - Final * (ABNORMAL) Lactic Acid (02/26/2025 6:48 PM EDT) Lactic Acid 2.1(HH) 0.5 - 2.0 mmol/L [facility] Comment:Critical value for t est(s): LA Results called to and readback by: MOOSE Person calling:KUSF Date:[id number]:1908 02/26/2025 6:48 PM EDT 02/26/2025 6:53 PM EDT Generic External Data Provider LAB BLOOD ORDERAB LES Final Result Performing Organization Address City/State/[facility] Co de Phone Number [facility] [address] [place] [phone] * CTA Chest PE Protocal (02/26/2025 4:40 PM EDT) Anatomical Region Laterality Modality Body, Chest Computed Tomogra phy 02/26/2025 4:40 PM EDT Narrative 02/26/2025 5:06 PM EDT [place] [address] CT Scan Report Signed Patient: Cande Hernandez MR#: [id number] : 1995 Acct:[id number] Age/Sex: 29 / F ADM Date: 02/26/25 Loc: HO.ED Attending Dr: Ordering Physician: Al Erickson Date of Service: 02/26/25 Procedure(s): CT angio chest PE protocol Accession Number(s): [id number] cc: Soniya Colon; Al Erickson Report Number: [id number]: Total DLP = 360.00 mGy-cm Reason for [...] 02/26/25 1702 DD/ 1640 TD/TT: 02/26/25 1650 Duplex Trimmer: Procedure Note Donotuseinterpreter, Image - 02/26/[address] [address] [address] Scan Report Signed Patient: Cande Hernandez KMR#: [id number] : 1995Acct:[id number] Age/Sex: 29 FADM Date: 02/26/25 Loc: .ED Attending Dr: Ordering Physician: Al Erickson Date of Service: 02/26/25 Procedure(s): CT angio chest PE protocol Accession Number(s): [id number] cc: Soniya Colon; Al Erickson Report Number: [id number]: Total DLP = 360.00 mGy-cm Reason for [...] 02/26/25 1702 DD/ 1640 TD/TT: 02/26/25 1650 Duplex Trimmer: us [facility] External Provider IMG CT PROCEDURES Final Result * (ABNORMAL) Lactic Acid (02/26/2025 4:34 PM EDT) Lactic Acid 4.0(HH) 0.5 - 2.0 mmol/L [facility] Comment:Critical value for t est(s): LACTA Results called to ruel back by: FARZANA Person calling: [email or web address] Date:02/26/25 Time:1654 02/26/2025 4:34 PM EDT 02/26/2025 4:37 PM EDT Generic External Data Provider LAB BLOOD ORDERAB LES Final Result Performing Organization Address [facility] de Phone Number [facility] [address] [place] [phone] * (ABNORMAL) High Sensitivity Troponin I (02/26/2025 4:06 PM EDT) Only the most recent of2 resultswithin the time period is included. [facility] TROPONIN I HIGH SENSITIVITY 34.7(H) <3.5 - 17.0 ng/L [facility] Comment:The Johnson high sens itivity Troponin-I results should beused in conjunction with other diagnostic information suchas ECG, clinical observations and information, and patientsymptoms to aid in the diagnosis of NH. 02/26/2025 4:06 PM EDT 02/26/2025 4:10 PM EDT us Generic External Data Provider LAB BLOOD ORDERAB LES Final Result Performing Organization Address [facility] Phone Number [facility] [address] [place] [phone] * TSH with Reflex to Free T4 (02/26/2025 1:15 PM EDT) Pathologist [facility] TSH reflex Free T4 1.00 0.32 - 4.0 uIU/mL [facility] 02/26/2025 1:15 PM EDT 02/26/2025 1:18 PM EDT Generic External Data Provider LAB BLOOD ORDERAB LES Final Result Performing Organization Address [facility] Co de Phone Number [facility] [address] [place] [phone] * (ABNORMAL) CBC auto differential (02/26/2025 1:15 PM EDT) White Blood Count 11.0(H) 4.8 - 10.8 X10*3/uL [facility] Red Blood Count 4.75 4.20 - 5.50 X10*6/uL [facility] Hemoglobin 13.3 12.0 - 16.0 g/dl [facility] Hematocrit 38.2 37.0 - 47.0 % [facility] Mean Corpuscular Volume 80.4 80.0 - 98.0 fL [facility] Mean Corpuscular Hemoglobin 28.0 27.0 - 33.0 pg [facility] Mean Corpuscular HGB Conc 34.8 31.0 - 35.0 g/dl [facility] Red Cell Distribution Width 13.2 11.0 - 16.0 % [facility] Platelet Count 234 160 - 400 X10*3/uL [facility] Mean Platelet Volume 9.3(L) 9.4 - 12.3 fL [facility] Neutrophils Percent Auto 85.7(H) 45 - 73 % [facility] Imm Gran Pct Auto 0.5(H) 0.0 - 0.4 % [facility] Lymphocytes Percent Auto 6.1(L) 20 - 40 % [facility] Monocytes Percent Auto 7.4 2 - 11 % [facility] Eosinophils Percent Auto 0.1 0 - 4 % [facility] Basophils Percent Auto 0.2 0 - 2 % [facility] NRBC Pct Auto 0.0 0.0 - 0.2 /100WBC [facility] Neutrophils Absolute Auto 9.4(H) 2.0 - 8.3 x10*3/uL [facility] Imm Gran Abs Auto 0.05(H) 0.00 - 0.03 X10*3/uL [facility] Lymphocytes Absolute Auto 0.7(L) 1.2 - 4.9 X10*3/uL [facility] Monocytes Absolute Auto 0.8 0.1 - 1.2 X10*3/uL [facility] Eosinophils Absolute Auto 0.0 0.0 - 0.4 X10*3/uL [facility] Basophils Absolute Auto 0.0 0.0 - 0.2 X10*3/uL [facility] LABS NRBC Abs Auto 0.000 0.0 - 0.012 X10*3/uL [facility] 02/26/2025 1:15 PM EDT 02/26/2025 1:18 PM EDT Generic External Data Provider LAB BLOOD ORDERAB LES Final Result Performing Organization Address City/[facility]/ZIP Co de Phone Number [facility] [address] [place] [address] [phone] * hCG, Total, Quantitative (02/26/2025 1:15 PM EDT) HCG Quantitative <2 mIU/mL [facility] Comment:Weeks post LMP Appro ximate hCG(Last Menstrual Period) Range (mIU/ml)3 - 4 weeks 9 - 1304 - 5 weeks 75 - 2,6005 - 6 weeks 850 - 20,8006 - 7 weeks 4000 - 100,2007 - 12 weeks 11,500 - 289,47449 - 16 weeks 18,300 - 137,16643 - 29 weeks (2nd trimester) 1,400 - 53,17785 - 41 weeks (3rd trimester) 940 - [...] Organization Address [facility]/ZIP Co de Phone Number [facility] [address] [place] [address] [phone] * Magnesium (02/26/2025 1:15 PM EDT) Magnesium 2.1 1.6 - 2.6 mg/dL [facility] 02/26/2025 1:15 PM EDT 02/26/2025 1:18 PM EDT Generic External Data Provider LAB BLOOD ORDERAB LES Final Result Performing Organization Address [facility] Co de Phone Number [facility] [address] [place] [phone] * (ABNORMAL) Hepatic Function Panel (02/26/2025 1:15 PM EDT) [facility] Bilirubin, Total 0.3 0.0 - 1.0 mg/dL [facility] Bilirubin, Direct 0.1 0.0 - 0.5 mg/dL [facility] Aspartate Amino Transferase 56(H) 5 - 31 U/L [facility] Alanine Aminotransferase 40(H) 0 - 31 U/L [facility] Total Protein 7.2 6.5 - 8.0 g/dL [facility] Albumin Level 4.4 3.5 - 5.0 g/dL [facility] Alkaline Phosphatase 72 39 - 117 U/L [facility] 02/26/2025 1:15 PM EDT 02/26/2025 1:18 PM EDT Generic External Data Provider LAB BLOOD ORDERAB LES Final Result Performing Organization Address [facility] Co de Phone Number [facility] [address] [place] [phone] * (ABNORMAL) Basic Metabolic Panel (02/26/2025 1:15 PM EDT) [facility] Sodium 137 135 - 145 mmol/L [facility] Potassium 4.2 3.3 - 5.1 mmol/L [facility] Chloride 103 96 - 108 mmol/L [facility] Carbon Dioxide 24 22 - 29 mmol/L [facility] Anion Gap 14 12 - 20 [facility] Urea Nitrogen (BUN) 6(L) 9 - 16 mg/dL [facility] Creatinine, Serum 0.65 0.5 - 1.4 mg/dL [facility] Creatinine Clr Calc Pharmacy 128.2 [facility] Comment:Provided height and weight: 157.48 cm,82.4 kg.eGFR (calculated from the MDRD study equation) and eCrCl(calculated from the Cockcroft-Gault equation) are based ondifferent parameters and may not yield comparable results.If eCrCl result is absurd, please check patient'sheight/weight. Estimated Glomerular Filt Rate >60 [facility] Comment:Chronic Kidney Disea se: Estimated GFR < 60 mL/min/1.09c3Adasra Kidney Disease: Estimated GFR < 15 mL/min/1.73m2 Glucose 193(H) 60 - 115 mg/dL [facility] Calcium 9.0 8.4 - 10.2 mg/dL [facility] 02/26/2025 1:15 PM EDT 02/26/2025 1:18 PM EDT us Generic External Data Provider LAB BLOOD ORDERAB LES Final Result Performing Organization Address [facility]/ZIP Co de Phone Number [facility] [address] [place] [phone] * POCT Rapid Influenza B JOHNSON ID NOW (02/26/2025 10:37 AM EDT) Influenza B Negative Negative, Indeterminate [facility] QC Media Lot # [id number] [facility] Lot# Expiration Date [id number] [facility] Swab 02/26/2025 10:3 7 AM EDT us Alissa May MD POINT OF CARE TEST ENTER/EDIT ORDERABLES Final Result Performing Organization Address [facility]/ZIP Co de Phone Number [facility] [address] [place] [phone] * POCT Rapid Influenza A JOHNSON ID NOW (02/26/2025 10:36 AM EDT) Influenza A Negative Negative, Indeterminate [facility] QC Media Lot # [id number] [facility] Lot# Expiration Date [id number] [facility] Swab 02/26/2025 10:3 6 AM EDT Alissa May MD POINT OF CARE TEST ENTER/EDIT ORDERABLES Final Result [facility] [address] [place] [phone] * POCT Rapid Covid-19 JOHNSON ID NOW (02/26/2025 10:35 AM EDT) Coronavirus Antigen PCR Negative Negative, Indeterminate, None Detected, Invalid, Specimen unsatisfactory for evaluation, Weakly Positive, 2+ QC Media Lot # [id number] Lot# Expiration Date [id number] Swab 02/26/2025 10:3 5 AM EDT Alissa May MD POINT OF CARE TEST ENTER/EDIT ORDERABLES Final Result * Pap Smear (09/17/2024 12:00 AM EDT) Swab Cervical swab / Unknown 09/17/2024 09/18/2024 10:15 AM EDT Narrative [facility] - 09/20/2024 10:37 AM EDT ----- ------- Name: Cande Hernandez Age/Sex: 29/F : 1995 Unit#: [id number] Attend Dr: Soniya Colon Re09/17/24 Status: DEP REF Location: [facility] Disch: ----- ------- SPEC : [id number] RECD: 09/18/24-1015 STATUS: JOSE RAUL BURCIAGA NUM: [id number] [place]: 09/17/24-[address]: Soniya Colon ENTERED: [...] Colon MD LAB CYTOLOGY ORDERABLES Final Result Performing Organization Address City/State/[facility] Co de Phone Number [facility] [address] [place] [address] [phone] from Last 3 Months or Most Recently Relevant to Health Maintenance Insurance [facility] HMO Care Teams Rn Radiation Relationship Specialty Start Date End Date Soniya Colon MD [address] [place] [address] PCP - General Family Medicine 01/19/21
--- OUTSIDE RECORDS SUMMARY | 2025-04-29 13:47 | XMS_ITS | Encounter Summary ---
Author Organization [employer] Address [address] [place] [address] [address] [place] [address] Care Team Providers Care Night Shift Manager Name Role Phone Soniya Colon MD Primary Care Provider [phone] Reason for Visit * Reason Comments Med Refill Encounter Details Date Type Department Care Team (Late st Contact Info) Description 07/06/2022 Refill [facility] [address] [place], [place] [phone] Sohail Rouse MD [address] [place] [address] [phone] Social History Tobacco Use Types Packs/Day Years [...] Description 05/14/2025 4:00 PM EST Office Visit [facility] [address] [place] [address] [phone] Soniya Colon MD [address] [place] [address] [phone] 07/02/2025 3:30 PM EST Office Visit [facility] [address] [place] [address] Kaetlyn Borjas, OD [address] [place], [place] [phone] documented as of this encounter Visit Diagnoses Not on filedocumented in this encounter Care Teams Night Shift Manager Relationship Specialty Start Date End Date Soniya Colon MD [address] [place], [place] [phone] PCP - General Family Medicine 01/19/21 documented as of this encounter
--- OUTSIDE RECORDS SUMMARY | 2025-04-29 13:47 | XMS_ITS | Clinical Summary ---
Author Organization [employer] [facility] Address [address] [employer] [address] [address] Phone Care Team Providers Care Singing Telegram Performer Name Role Phone Soniya Colon MD Primary Care Provider + Allergies Active Allergy Reactions Criticality Noted Date Comments Sulfamethoxazole-Trimetho prim Hives 04/06/2023 Other Reaction(s): Terbinafine Terbinafine Swelling 04/06/2023 [place] [place] Anaphylaxis High 11/10/2023 Medications SUMAtriptan (IMITREX) 50 [...] AM EDT) HCV NON-REACTIV E NON-REACTI VE [facility] Blood 11/06/2023 10:3 4 AM EDT 11/06/2023 10:42 AM EDT Miguel Aguayo MD LAB BLOOD BKR ORDERABLES Leigh Ann naidu Result [facility] [address] [place] [address] from Last 3 Months or Most Recently Relevant to Health Maintenance Insurance [facility] Member Subscriber Plan / Payer (Ef fective 2022-Present) Name:Cande Hernandez Relation to Subscriber:Self Name:Cande Hernandez Payer ID:Not on file Type:PPO Address: [address] [facility] Advance Directives For more information, please contact: [phone] (9AM - 5PM [facility], Monday-Monday) Documents on File Type Date Recorded Patient Medical Nurse Expl anation Healthcare Proxy 11/17/2023 4:31 PM Care Teams Singing Telegram Performer Relationship Specialty Start Date End Date Soniya Colon MD PCP - General Family Medicine 03/27/23 Additional Source Comments The information contained in this document represents components of the legal health record. It is not the complete legal health record.[facility]
--- OUTSIDE RECORDS SUMMARY | 2025-04-29 13:47 | XMS_ITS | Encounter Summary ---
Author Organization [employer] Address [address] [place] [address] 7 [place] [address] Care Team Providers Care Ornament Maker Hand Name Role Phone Soniya Colon MD Primary Care Provider Encounter Details Date Type Department Care Team (Late st Contact Info) Description 04/25/2022 Abstract [facility] [address] [place] [address] Soniya Colon MD [address] [place] [address] Social History Tobacco Use Types Packs/Day Years [...] Description 05/14/2025 4:00 PM EST Office Visit [facility] [address] [place] [address] Soniya Colon MD [address] [place] [address] 07/02/2025 3:30 PM EST Office Visit [facility] [address] [place] [address] [place], Katelyn, OD [address] [place] [address] documented as of this encounter Visit Diagnoses Not on filedocumented in this encounter Care Teams Ornament Maker Hand Relationship Specialty Start Date End Date Soniya Colon MD [address] [place] [address] PCP - General Family Medicine 01/19/21 documented as of this encounter
--- OUTSIDE RECORDS SUMMARY | 2025-04-29 13:47 | XMS_ITS | Encounter Summary ---
Author Organization [employer] Address [address] [address] 7[address] [place] [address] Care Team Providers Care Clinical Systems Analyst Name Role Phone Soniya Colon MD Primary Care Provider [phone] Reason for Referral * Consultation (Routine) - Closed Specialty Diagnoses / Procedures Referred By Contkiarra t Referred To Contact Pulmonary Disease Diagnoses Pneumonia of left lung due to Mycoplasma pneumoniae, unspecified part of lung Soniya Colon MD [address] [place] [address] Phone: tel: fax: [facility] Pulmonary [address] Floor [place], [place] Phone: tel: fax: Referral ID Status Reason Start Date Expiration Date V isits Requested Visits Authorized [id number] Closed Specialty Services Required 03/05/2025 03/05/2026 1 1 Encounter Details Date Type Department Care Team (Late st Contact Info) Description 03/05/2025 Orders Only [facility] [address] [place] [address] Soniya Colon MD [address] [place], [place] [phone] Pneumonia of left lung due to Mycoplasma [...] PM EST Office Visit [facility] [address] [place] [address] Soniya Colon MD [address] [place] [address] 07/02/2025 3:30 PM EST Office Visit [facility] [address] [place] [address] [place]io, Katelyn, OD [address] [place] [address] Scheduled Referrals Name Type Priority Associated Diagnoses [...] PM EST Narrative 03/31/2025 2:19 PM EST [facility] [address] [place] [address] XRay Report Signed Patient: Cande Hernandez MR#: [id number] : 1995 Acct:[id number] Age/Sex: 29 / F ADM Date: 03/31/25 Loc: .ED Attending Dr: Ordering Physician: Linda Gilliam Date of Service: 03/31/25 Procedure(s): XR chest 2V Accession Number(s): [id number] cc: Linda Gilliam; Soniya Colon Reason for [...] 03/31/25 1416 DD/ 1405 TD/TT: 03/31/25 1410 Professional Nursing Assistant: Procedure Note Donotuseinterpreter, Image - 03/31/2025 [place] [address] XRay Report Signed Patient: Cande Hernandez KMR#: [id number] : 1995Acct:[id number] Age/Sex: 29 FADM Date: 03/31/25 Loc: .ED Attending Dr: Ordering Physician: Linda Gilliam Date of Service: 03/31/25 Procedure(s): XR chest 2V Accession Number(s): [id number] cc: Linda Gilliam; Soniya Colon Reason for [...] 03/31/25 1416 DD/ 1405 TD/TT: 03/31/25 1410 Professional Nursing Assistant: us [facility] External Provider IMG XR PROCEDURES Edited Result - Final documented in this encounter Visit Diagnoses Diagnosis Pneumonia of left lung due to Mycoplasma pneumoniae, unspecified part of lung- Primary documented in this encounter Additional Health Concerns Assessment Noted Time PHQ-9 Depression Total Score: 4 03/25/20 24 2:12 PM EDT documented as of this encounter Care Teams Clinical Systems Analyst Relationship Specialty Start Date End Date Soniya Colon MD [address] [place] [address] PCP - General Family Medicine 01/19/21 documented as of this encounter
--- OUTSIDE RECORDS SUMMARY | 2025-04-29 13:47 | XMS_ITS | Encounter Summary ---
Author Organization [employer] Address [address] [place] [address] 7 [place] [address] Care Team Providers Care Warehouse Order Picker Name Role Phone Soniya Colon MD Primary Care Provider [phone] Encounter Details Date Type Department Care Team ([facility] st Contact Info) Description 10/16/2023 Orders Only [facility] [address] [place] [address] Soniya Colon MD [address] [place] [address] Social History Tobacco Use Types Packs/Day Years [...] Description 05/14/2025 4:00 PM EST Office Visit [facility] [address] [place] [address] Soniya Colon MD [address] [place] [address] 07/02/2025 3:30 PM EST Office Visit [facility] [address] [place] [address] [place]io, Kaetlyn, OD [address] [place] [address] documented as of this encounter Visit Diagnoses Not on filedocumented in this encounter Additional Health Concerns Assessment Noted Time PHQ-9 Depression Total Score: 13 023 3:47 PM EST documented as of this encounter Care Teams Warehouse Order Picker Relationship Specialty Start Date End Date Soniya Colon MD [address] [place] [address] PCP - General Family Medicine 01/19/21 documented as of this encounter
--- OUTSIDE RECORDS SUMMARY | 2025-04-29 13:47 | XMS_ITS | Encounter Summary ---
Author Organization [employer] Address [address] [place] [address] [address] [place] [address] Care Team Providers Care Physicist Light And Optics Name Role Phone Soniya Colon MD Primary Care Provider [phone] Reason for Visit * Reason Onset Date Comments triage 10/10/2022 Encounter Details Date Type Department Care Team ([facility] st Contact Info) Description 10/10/2022 Telephone [facility] [address] [place] [address] Soniya Colon MD [address] [place], [place] [phone] triage Social History Tobacco Use Types Packs/Day [...] few days. Pt is on vacation in [place] and will return 10/11 afternoon. Pt reports taking apap/motrin alternating every 6 hours and using muscle relaxer but, not effecting pain. Pt reports radiation of pain to left leg. Pt is offered apt 10/17 but,requests to be seen sooner. Pt will come to [facility] upon arrival home 10/11. Home [...] Description 05/14/2025 4:00 PM EST Office Visit [facility] [address] [place] [address] Soniya Colon MD [address] [place] [address] 07/02/2025 3:30 PM EST Office Visit [facility] [address] [place] [address] Katelyn Borjas OD [address] [place] [address] documented as of this encounter Visit Diagnoses Not on filedocumented in this encounter Care Teams Physicist Light And Optics Relationship Specialty Start Date End Date Soniya Colon MD [address] [place] [address] PCP - General Family Medicine 01/19/21 documented as of this encounter
--- OUTSIDE RECORDS SUMMARY | 2025-04-29 13:47 | XMS_ITS | Data Portability ---
Author Organization [place] [facility] Address [address] [address] Care Team Providers Care Buhr Mill Operator Name Role Phone MAGY MANUEL Primary Care Provider [phone] Assessment Encounter Date Assessment Date Assessment LastModified [...] Details Recorded Time Abnormal auditory percepti on 27919213 Active 2022 Other abnormal auditory percepti ons, bilatera l; Note: Date Diagnose d: 3 3:37 PM (H93.293 ) Not Available [facility] 4 02:45:42 Infectiv e otitis externa of bilatera l ears [id number] [address]57[address] Completed 202212/29/2023 Other infectiv e otitis externa, bilatera l; Note: Date Diagnose d: 3 2:50 PM (H60.393 ) Not Available [facility] 4 02:45:39 Acute sinusiti s 61047643 Active 2024 ARSEN GOODMAN PA-C [address] [place] [address],[facility] [address], [facility] [place], [address] , [facility] - [facility] 5 15:47:08 Problem Notes None recorded. Medical Equipment None Reported. Allergies Allergen ID Allergen Name Allergen Category Reaction Reaction Severity Criticality Documentation Date Start Date Code Code System Note Provider Name and Address Organization Details Recorded Time 496418 Bactrim medicatio n Not available Not available Not available 10/10/2023 42264 9 RxNorm React ion: Lip swell ing; Not Available [facility] 4 01:08:18 831827 terbinafi ne medicatio n facial swelling Not available Not available 10/10/2023 21310 RxNorm React ion: Facia l swell ing; Not Available [facility] 4 01:08:20 Medications Name Sig Start Date [...] 0.35 mg tablet active Medicati on ID: [id number] B rand Name: norethin drone (contrac eptive) [...] a day 08/28 completed Medicati on ID: [id number] D uration Value: 14 Brand Name: Ciprodex [...] a day 08/28 completed Medicati on ID: [id number] D uration Value: 7 Brand Name: fluocino lone acetonid e oil Send Method: E-Prescr ibed Sub s Allowed: subs OK Medic ationGen ericName : fluocino lone acetonid e oil Not Available Not Available Not Available M- Plus 27 mg iron-1 mg tablet 08/28 completed Medicati on ID: [id number] B rand Name: M- Plus Sen d Method: E-Prescr ibed Sub s Allowed: subs OK Speci al Instruct ion: TAKE 1 TABLET BY MOUTH EVERY DAY Medi cationGe nericNam e: M- Plus Not Available Not Available Not Available Vitals Date Recorded Body height Body mass index (BMI) Body weight Provider Name and Address Organization Details Last Updated DateTime 08/28/2024 157.48 cm 32.7 kg/m2 25037.03 g MAR HARRY [place] [facility] 08/28/2024 15:22:52 Social History None recorded. Functional Status None recorded. Mental Status None recorded. Family History Nothing Reported. Medical History No medical history recorded. Gynecological HistoryNo gynecological history recorded. Obstetrics History GPAL:G 0 P 0 0 0 0 Past Encounters Encounter ID Performer Location Encounter Start Date Encounter Closed Date Diagnosis/Indication Diagnosis SNOMED-CT Code Diagnosis ICD10 Code Diagnosis IMO Codes Diagnosis Note [id number] ARSEN GOODMAN PA-C [facility] [address] [address] 08/28/2024 15:13:18 08/28/2024 15:54:21 Abnormal auditory perception 48609720 H93.293 Acute sinusitis 84083706 J01.90 Health Concerns Section Related Observation LastModified by Organization Detai ls LastModified Time None Recorded Concern Status LastModified by Organization Details LastModified Time None Recorded Advance Directives Directive None Recorded Payers Insurance Date Sequence Insurance Name Policy Number Policy Irizarry Covered Member ID Irizarry Member ID Guarantor Name 08/23/2024 1 [facility] [id number] Cande Hernandez [id number] Cande Hernandez 08/28/2024 1 [facility] [id number] Cande Hernandez [id number] Cande Hernandez Notes Date Note Type Note [...] history of seasonal allergies. PAULETTE CHEEK MD [address] [place] [address], [phone], [facility] - [facility] 08/29/2024 10:41:39 OBGyn Episode No OBEpisode recorded.
== END 2025-04-28 11:35 | disposition home or self-care (01) ==
LOC: HO.HHCLNP 11:34
PROVIDERS: Visit Provider Nurse Practitioner
DX: N89.8 Other specified noninflammatory disorders of vagina (principal); Z20.2 Contact with and (suspected) exposure to infections with a predominantly sexual mode of transmission
CPT/HCPCS: 81515; 87491; 87591